=== PATIENT | female | born 1940 | race Caucasian/White ===

== ENCOUNTER 2016-12-18 07:35 | Emergency (ER) | payer OTHER ==
[~2016-12-18] VITALS: Ht 157.5 cm; Wt 78.6 kg
[~2016-12-18 07:35] MED LIST: ACET-1487 PO; ALBU18002 INH; AMT25 PO; ASPI81TA28 PO; ATEN-173 PO; ATOR-26 PO; BIMA0.01 OP; CRDCD180 PO; DTR5 PO; FERRTAB18 PO; FLNIN NAE; GABA-112 PO; GLC500 PO; GLIP1TAB85 PO; HYDR-3419 PO; MOME100A INH; NTRGSL/4 UT; OMEP20TA PO; OXGN; SYN25 PO; TRAM-10 PO
[2016-12-18 07:41] VITALS: TEMP 36.9; Ht 157.5 cm; Wt 78.6 kg
[2016-12-18] MEDS ORDERED: ONDANSETRON INJ 2 MG/ML 2 ML VIAL IV PRN (08:00)
[2016-12-18] MEDS ORDERED: MoRPHine SULFATE 10 MG/ML CARP/VIAL IV PRN (08:00)
--- NOTE | 2016-12-18 08:12 | EMERGENCY ROOM VISIT NOTE ---
History Report prepared by Michaela: Christin Fitzgerald Under the Supervision of: Dr. Taqueria Bey M.D. First contact with patient: 07:48 Chief Complaint: ABDOMINAL PAIN Stated Complaint: ABD PAIN History of Present Illness The patient is a 76 year old female who presents to the Emergency Room with complaints of constant abdominal pain starting two days ago. She states that she ate a pear while taking her normal evening medicine and became bloated soon after. She reports that by the next morning the pain had become much worse in her uppers stomach. She states that she has not been passing gas, but is burping before vomiting. The patient states that the first time she vomited it was a dark liquid color. She reports that in later episodes of vomiting, it was a light cocoa color. The patient complains of irregular bowel movements, right back pain, vomiting, and a fever. She denies any chills, hematochezia, and melena. The patient does have a history of a bowel obstruction occurring four years ago. She takes a baby Aspirin, but is not on any other blood thinners. Source of History: patient Onset: two days ago Position: abdomen Timing: constant Associated Symptoms: + back pain, + fevers, + vomiting, No chills, No hematochezia, No melena Note: The patient complains of irregular bowel movements and burping before vomiting. The patient denies passing gas. Review of Systems All systems have been listed, reviewed, and are negative other than those previously mentioned. Please see Additional Medical History Sheet. Past Medical & Surgical Medical Problems: (1) Cardiomegaly (2) Carotid stenosis (3) Diabetes (4) Hypertension (5) Sacral back pain Family History Diabetes mellitus FH: heart disease Social History Smoking Status: Never Smoker Drug Use: none Marital Status: Housing Status: lives with family Current/Historical Medications Scheduled Acetaminophen (Tylenol Arthritis Ext Rel), 2 TAB PO Q8H Albuterol Sulfate (Proair Respiclick), 2 PUFFS INH QD Amitriptyline HCl (Amitriptyline HCl), 50 MG PO HS Aspirin (Aspirin Ec), 81 MG PO QPM Atenolol (Tenormin), 25 MG PO QPM Atorvastatin (Lipitor), 80 MG PO QPM Bimatoprost (Lumigan), 1 DROPS OP HS Cyanocobalamin (Vitamin B12), 1,000 MCG PO QAM Diltiazem Hcl Coated Beads (Cartia Xt), 180 MG PO QPM Fluticasone Propionate (Fluticasone Propionate), 2 SPRAYS JAQUELIN QAM Gabapentin (Gabapentin), 300 MG PO TID Glipizide (Glipizide), 5 MG PO BID Iron-Vitamin C (Vitron-C), 1 TAB PO QAM Levothyroxine Sodium (Synthroid), 25 MCG PO QAM Metformin Hcl (Glucophage), 1,000 MG PO BID Nitroglycerin (Nitrostat), 0.4 MG UT PRN Omeprazole (Omeprazole), 20 MG PO BIDM Oxybutynin Chloride (Oxybutynin Chloride), 5 MG PO TID Oxygen (Oxygen), 2.5 LITERS NA HS Scheduled PRN Hydrocodon/Acetaminophen 5MG/300MG (Vicodin (5MG/300MG)), 1-2 TAB PO Q4H PRN for Pain Tramadol (Ultram), 50 MG PO Q6H PRN for Pain Allergies Coded Allergies: Carbamazepine (Verified Allergy, Unknown, RASH, 12/18/16) Oxaprozin (Verified Allergy, Unknown, RASH/HIVES, 12/18/16) Valproic Acid (Verified Allergy, Unknown, HEAD-TOE RASH, 12/18/16) Prednisone (Verified Adverse Reaction, Unknown, ELEVATION OF SUGARS, ) PATIENT HAS GLAUCOMA BOTH EYES - UNABLE TO TAKE PREDNISONE Physical Exam Vital Signs Date Time Temp Pulse Resp B/P Pulse Ox O2 Delivery O2 Flow Rate FiO2 12/18/16 12:22 92 18 127/71 94 12/18/16 11:37 92 18 127/71 94 Room Air 12/18/16 09:53 84 20 130/80 94 Room Air 12/18/16 07:41 36.9 107 20 144/71 93 Room Air Physical Exam GENERAL: Patient awake, alert, oriented x 3. Patient follows commands. Patient does not appear toxic. Patient is adequately hydrated and well- nourished. Patient appears to be in moderate distress. SKIN: No erythema, cyanosis or rash. Patient appears pale in color. HEENT: Normal head, pupils equal, reactive to light and accommodation. Mucous membranes are dry, tongue is slightly black in color. Neck: Without adenopathy , no neck vein distention. LUNGS: Clear to auscultation. No wheezes, no rales, no rhonchi. HEART: No murmurs. No gallops. No rubs ABDOMEN: No masses, no rebound, no hepatomegaly or splenomegaly. Diffuse tenderness, well healed lower abdominal scar. EXTREMITIES: No signs of trauma. No pedal or pretibial edema. No calf or thigh tenderness. NEUROLOGIC: Cranial nerves II-XII within normal limits. No gross motor sensory function deficits. Medical Decision & Procedures ER Provider Diagnostic Interpretation: Radiology results as stated below per my review and radiologist interpretation: ABDOMINAL ULTRASOUND, RIGHT UPPER QUADRANT HISTORY: Right upper quadrant abdominal pain. COMPARISON: None. FINDINGS: Pancreas: Small portion of the head is identified and appears unremarkable. The body and tail the pancreas are obscured by overlying bowel gas. Liver: The liver is echogenic consistent with fatty change. Gallbladder: No gallbladder wall thickening. No gallstones. CBD: 4 mm. Right kidney: No hydronephrosis. IMPRESSION: Hepatic steatosis. Normal gallbladder. No gallstones. Electronically signed by: Axel Patel M.D. 12/18/2016 9:42 AM Dictated Date/Time: 12/18/2016 9:42 AM Laboratory Results 12/18/16 08:55 Red Blood Count 4.19, Mean Corpuscular Volume 88.3, Mean Corpuscular Hemoglobin 29.1, Mean Corpuscular Hemoglobin Concent 33.0, Mean Platelet Volume 9.0, Neutrophils (%) (Auto) 72.4, Lymphocytes (%) (Auto) 15.8, Monocytes (%) (Auto) 11.6, Eosinophils (%) (Auto) 0.1, Basophils (%) (Auto) 0.1, Neutrophils # (Auto ) 6.27, Lymphocytes # (Auto) 1.37, Monocytes # (Auto) 1.01, Eosinophils # (Auto ) 0.01, Basophils # (Auto) 0.01 12/18/16 08:20 Test 12/18/16 08:20 12/18/16 08:55 12/18/16 10:30 Anion Gap 11.0 mmol/L (3-11) Est Creatinine Clear Calc Drug Dose 58.8 ml/min Estimated GFR () 84.3 Estimated GFR (Non- 72.7 BUN/Creatinine Ratio 22.8 (10-20) Calcium Level 9.8 mg/dl (8.5-10.1) Total Bilirubin 0.6 mg/dl (0.2-1) Aspartate Amino Transf (AST/SGOT) 20 U/L (15-37) Alanine Aminotransferase (ALT/SGPT) 27 U/L (12-78) Alkaline Phosphatase 63 U/L (45-117) Total Protein 7.4 gm/dl (6.4-8.2) Albumin 4.0 gm/dl (3.4-5.0) Globulin 3.4 gm/dl (2.5-4.0) Albumin/Globulin Ratio 1.2 (0.9-2) Lipase 55 U/L (73-393) White Blood Count 8.67 K/uL (4.8-10.8) Red Blood Count 4.19 M/uL (4.2-5.4) Hemoglobin 12.2 g/dL (12.0-16.0) Hematocrit 37.0 % (37-47) Mean Corpuscular Volume 88.3 fL (80-100) Mean Corpuscular Hemoglobin 29.1 pg (25-34) Mean Corpuscular Hemoglobin Concent 33.0 g/dl (32-36) Platelet Count 277 K/uL (130-400) Mean Platelet Volume 9.0 fL (7.4-10.4) Neutrophils (%) (Auto) 72.4 % Lymphocytes (%) (Auto) 15.8 % Monocytes (%) (Auto) 11.6 % Eosinophils (%) (Auto) 0.1 % Basophils (%) (Auto) 0.1 % Neutrophils # (Auto) 6.27 K/uL (1.4-6.5) Lymphocytes # (Auto) 1.37 K/uL (1.2-3.4) Monocytes # (Auto) 1.01 K/uL (0.11-0.59) Eosinophils # (Auto) 0.01 K/uL (0-0.5) Basophils # (Auto) 0.01 K/uL (0-0.2) RDW Standard Deviation 46.5 fL (36.4-46.3) RDW Coefficient of Variation 14.3 % (11.5-14.5) Immature Granulocyte % (Auto) 0.0 % Immature Granulocyte # (Auto) 0.00 K/uL (0.00-0.02) Urine Color DK YELLOW Urine Appearance CLEAR (CLEAR) Urine pH 5.5 (4.5-7.5) Urine Specific [place] 1.034 (1.000-1.030) Urine Protein 2+ (NEG) Urine Glucose (UA) NEG (NEG) Urine Ketones 2+ (NEG) Urine Occult Blood 1+ (NEG) Urine Nitrite POS (NEG) Urine Bilirubin NEG (NEG) Urine Urobilinogen NEG (NEG) Urine Leukocyte Esterase NEG (NEG) Urine WBC (Auto) 1-5 /hpf (0-5) Urine RBC (Auto) 0-4 /hpf (0-4) Urine Hyaline Casts (Auto) 1-5 /lpf (0-5) Urine Epithelial Cells (Auto) >30 /lpf (0-5) Urine Bacteria (Auto) 4+ (NEG) Urine Pathogenic Casts /lpf (0) Laboratory results as stated above per my review. Medications Administered Medications (Trade) Dose Ordered Sig/Vivek Route Start Time Stop Time Status Last Admin Dose Admin Ondansetron HCl (Zofran Inj) 4 mg Q1HWA PRN IV 12/18/16 08:00 12/18/16 12:35 DC 12/18/16 08:16 4 MG Morphine Sulfate (MoRPHine SULFATE INJ) 4 mg STK-MED ONCE .ROUTE 12/18/16 08:18 12/18/16 08:19 DC 12/18/16 08:15 4 MG Morphine Sulfate (MoRPHine SULFATE INJ) 2 mg STK-MED ONCE .ROUTE 12/18/16 08:19 12/18/16 08:20 DC 12/18/16 08:16 2 MG Polyethylene (Miralax Powder Packet) 17 gm ONE ONCE PO 12/18/16 10:00 12/18/16 10:01 DC 12/18/16 10:25 17 GM ECG Indication: abdominal pain Rate (beats per minute): 100 Rhythm: normal sinus Findings: RBBB, no acute ischemic change, no ectopy ED Course 0748: Past medical records reviewed. The patient was evaluated in room B2. A complete history and physical examination was performed. 0800: Ordered Zofran Inj 4 mg PRN IV nausea, Morphine Sulfate 6 mg PRN IV pain. 1000: Ordered Miralax Powder Packet 17 gm PO. 1018: I reevaluated the patient and informed her of the exam findings. She is feeling better. 1213: Upon reevaluation, the patient appeared to have improvement of her symptoms. I discussed today's findings with the patient. She verbalized agreement of the treatment plan. The patient was discharged home. Medical Decision Dyspnea Differential Diagnoses include pancreatitis, cholelithiasis, cholecystitis, peptic/ gastric ulcer disease, bowel obstruction Multiple labs come imaging and urinalysis were obtained. Please see above. The patient had significant relief with the above pain medications. The patient appears to be constipated. She was given MiraLAX. Ultrasound does not reveal a gallbladder problem. The patient does have 4+ bacteria in her urine but without symptoms and without significant white cells in her urine. We await culture prior to treatment with antibiotics. The patient does not appear to have a bowel obstruction or an acute abdomen. In the meantime I am hopeful that when she has regular bowel movements she will feel significantly better. Impression Primary Impression: Constipation Scribe Attestation The scribe's documentation has been prepared under my direction and personally reviewed by me in its entirety. I confirm that the note above accurately reflects all work, treatment, procedures, and medical decision making performed by me. Departure Information Dispostion Home / Self-Care Referrals Ben Brandon D.O. (PCP) Forms HOME CARE DOCUMENTATION FORM, IMPORTANT VISIT INFORMATION Patient Instructions [facility] Additional Instructions Repeat another dose of MiraLAX in 24 hours if you have not yet had a bowel movement. Continue all of your current medications as prescribed. A urine culture is pending. We will call you if you need antibiotics.
[2016-12-18] MEDS ORDERED: MoRPHine SULFATE 4 MG/ML 1 ML CARP\\VIAL ONE (08:18)
[2016-12-18] MEDS ORDERED: MoRPHine SULFATE 2 MG/ML CARP ONE (08:19)
[2016-12-18] MEDS ORDERED: FLNIN/ NAE (08:23)
[2016-12-18] MEDS ORDERED: DILT180C50 PO (08:23)
[2016-12-18] MEDS ORDERED: GLC5 PO (08:23)
[2016-12-18] MEDS ORDERED: AMT25 PO (08:23)
[2016-12-18] MEDS ORDERED: CYAN100020 PO (08:23)
[2016-12-18] MEDS ORDERED: GABA1CAP4 PO (08:23)
[2016-12-18] MEDS ORDERED: DTR5 PO (08:23)
[2016-12-18] MEDS ORDERED: METF-384 PO (08:23)
[2016-12-18 08:51] LABS: BUN/CREATININE RATIO 22.8 (10-20); CREATININE 0.79 mg/dl (0.60-1.20)
[2016-12-18 08:54] LABS: ALB/GLOB RATIO 1.2 (0.9-2); CALCIUM 9.8 mg/dl (8.5-10.1)
[2016-12-18 09:13] LABS: BASO % 0.1 %; BASO ABS # 0.01 K/uL (0-0.2); COMPLETE YES; EOS % 0.1 %; LYMPH % 15.8 %; LYMPH ABS # 1.37 K/uL (1.2-3.4); MEAN CELL VOLUME 88.3 fL (80-100); MEAN CORPUSCULAR HEMOGLOBIN 29.1 pg (25-34); MONO % 11.6 %; NEUT % 72.4 %; PLATELET COUNT 277 K/uL (130-400); RED BLOOD COUNT 4.19 M/uL (4.2-5.4); WHITE BLOOD COUNT 8.67 K/uL (4.8-10.8)
--- NOTE | 2016-12-18 09:44 | DIAGNOSTIC IMAGING REPORT ---
ABDOMINAL ULTRASOUND, RIGHT UPPER QUADRANT HISTORY: Right upper quadrant abdominal pain. COMPARISON: None. FINDINGS: Pancreas: Small portion of the head is identified and appears unremarkable. The body and tail the pancreas are obscured by overlying bowel gas. Liver: The liver is echogenic consistent with fatty change. Gallbladder: No gallbladder wall thickening. No gallstones. CBD: 4 mm. Right kidney: No hydronephrosis. IMPRESSION: Hepatic steatosis. Normal gallbladder. No gallstones. Electronically signed by: Axel Patel M.D. 12/18/2016 9:42 AM Dictated Date/Time: 12/18/2016 9:42 AM
[2016-12-18] MEDS ORDERED: POLYETHYLENE (MIRALAX) 17 GM PACK PO ONE (10:00)
[2016-12-18 10:51] LABS: URINE APPEARANCE CLEAR (CLEAR); URINE BILIRUBIN NEG (NEG); URINE COLOR DK YELLOW; URINE EPITHELIAL CELL AUTO >30 /lpf (0-5); URINE NITRITE POS (NEG); URINE PH 5.5 (4.5-7.5); URINE SPECIFIC GRAVITY 1.034 (1.000-1.030); UROBILINOGEN NEG (NEG); ZZURINE CULT IF INDIC CATH YES
[2016-12-18 10:53] LABS: MANUAL MICROSCOPIC REQUIRED? NO; REVIEW REQ? YES
[2016-12-18 12:22] VITALS: BP 127/71; PULSE 92; O2SAT 94
[2016-12-19] MEDS ORDERED: MOME100A INH (08:34)
[2016-12-19] MEDS ORDERED: DOCU-94 PO (08:34)
--- NOTE | 2016-12-20 17:09 | Pharmacy Progress Note ---
ED Pharmacist Culture FollowUp Date of Service: Dec 20, 2016. E. coli isolated from urine culture. Patient was admitted to [facility] since this was taken. Spoke w her attending physician (Dr. King) who is aware of the culture result. Management per primary team - no further intervention required by ED.
[2016-12-26] MEDS ORDERED: DOXY100C41 PO (12:57)
[2016-12-26] MEDS ORDERED: LCTX PO (12:57)
[2016-12-26] MEDS ORDERED: LEVO-459 PO (12:57)
[2016-12-26] MEDS ORDERED: PRED10TA PO (12:57)
[2017-04-20] MEDS ORDERED: CYAN100T PO (07:42)
[2017-06-27] MEDS ORDERED: ISOS60TA25 PO (13:30)
[2017-06-27] MEDS ORDERED: ACET-1256 PO (13:30)
[2017-06-27] MEDS ORDERED: DIPH1TAB87 (13:30)
[2017-06-27] MEDS ORDERED: BIMA0.01 OP (13:30)
[2017-06-27] MEDS ORDERED: ATOR-26 PO (13:30)
[2017-06-27] MEDS ORDERED: TRAM-10 PO (13:30)
== END 2016-12-18 12:23 | disposition home or self-care (01) ==
LOC: C.EDB 07:36
DX: K59.00 Constipation, unspecified (principal); E11.9 Type 2 diabetes mellitus without complications; I10 Essential (primary) hypertension; Z83.3 Family history of diabetes mellitus; Z79.82 Long term (current) use of aspirin; Z79.84 Long term (current) use of oral hypoglycemic drugs

== ENCOUNTER 2016-12-19 04:32 | Inpatient (IN) | payer OTHER ==
[~2016-12-19] VITALS: Ht 157.5 cm; Wt 77.3 kg
[~2016-12-19 04:32] MED LIST changes: -CRDCD180 PO; +CYAN100020 PO; +DILT180C50 PO; -FLNIN NAE; +FLNIN/ NAE; -GABA-112 PO; +GABA1CAP4 PO; +GLC5 PO; -GLC500 PO; -GLIP1TAB85 PO; +METF-384 PO; -MOME100A INH
[2016-12-19] MEDS ORDERED: MoRPHine SULFATE 4 MG/ML 1 ML CARP\\VIAL IV STA (04:54)
[2016-12-19] MEDS ORDERED: ONDANSETRON INJ 2 MG/ML 2 ML VIAL IV STA (04:54)
[2016-12-19] MEDS ORDERED: SODIUM CHLORIDE 0.9% 1000ML 1,000 ML IV STA (04:56)
[2016-12-19] MEDS ORDERED: SODIUM CHLORIDE 0.9% 500ML 500 ML IV STA (04:56)
--- NOTE | 2016-12-19 04:58 | EMERGENCY ROOM VISIT NOTE ---
History Report prepared by Michaela: Obed Lazcano Under the Supervision of: Dr. Elizabeth Cherry D.O. First contact with patient: 04:40 Chief Complaint: GI ASSESSMENT Stated Complaint: BOWELS NOT WORKING,NOTHING GOING THROUGH,VOMITING Nursing Triage Summary: pt states her bowels are not working, "nothing going through, everything is coming up" c/o abd pain History of Present Illness The patient is a 76 year old female who presents to the Emergency Room with complaints of persistent abdominal pain that started yesterday. The patient complains of difficulty moving her bowels, nausea, and vomiting. The patient recently presented to the ED about 20 hours ago for similar symptoms. She was treated with MiraLAX. However, the patient notes that this didn't help relieve her symptoms once she got home. The patient has a history of blockages and had surgery to repair the small bowel obstruction. Source of History: patient Onset: yesterday Position: abdomen Timing: other (persistent) Associated Symptoms: + nausea, + vomiting Note: Other associated symptoms: difficulty moving her bowels Review of Systems See HPI for pertinent positives & negatives. A total of 10 systems reviewed and were otherwise negative. Past Medical & Surgical Medical Problems: (1) Cardiomegaly (2) Carotid stenosis (3) Diabetes (4) Hypertension (5) Sacral back pain Family History Diabetes mellitus FH: heart disease Social History Smoking Status: Never Smoker Drug Use: none Marital Status: Housing Status: lives with family Current/Historical Medications Scheduled Amitriptyline HCl (Amitriptyline HCl), 50 MG PO HS Aspirin (Aspirin Ec), 81 MG PO QPM Atenolol (Tenormin), 25 MG PO QPM Atorvastatin (Lipitor), 80 MG PO QPM Bimatoprost (Lumigan), 1 DROPS OP HS Cyanocobalamin (Vitamin B12), 1,000 MCG PO QAM Diltiazem Hcl Coated Beads (Cartia Xt), 180 MG PO QPM Docusate Sodium (Colace), 2 CAP PO DAILY Fluticasone Propionate (Fluticasone Propionate), 2 SPRAYS JAQUELIN QAM Gabapentin (Gabapentin), 300 MG PO UD Glipizide (Glipizide), 5 MG PO BID Levothyroxine Sodium (Synthroid), 25 MCG PO QAM Metformin Hcl (Glucophage), 1,000 MG PO BID Mometasone Furoate-Formoterol (Dulera 100/5 Mcg), 1 PUFFS INH BID Nitroglycerin (Nitrostat), 0.4 MG UT PRN Omeprazole (Omeprazole), 20 MG PO BIDM Oxybutynin Chloride (Oxybutynin Chloride), 5 MG PO TID Scheduled PRN Albuterol Sulfate (Proair Respiclick), 2 PUFFS INH Q4 PRN for SOB/Wheezing Tramadol (Ultram), 50 MG PO Q6H PRN for Pain Allergies Coded Allergies: Carbamazepine (Verified Allergy, Unknown, RASH, 12/18/16) Oxaprozin (Verified Allergy, Unknown, RASH/HIVES, 12/18/16) Valproic Acid (Verified Allergy, Unknown, HEAD-TOE RASH, 12/18/16) Prednisone (Verified Adverse Reaction, Unknown, ELEVATION OF SUGARS, ) PATIENT HAS GLAUCOMA BOTH EYES - UNABLE TO TAKE PREDNISONE Physical Exam Vital Signs Date Time Temp Pulse Resp B/P Pulse Ox O2 Delivery O2 Flow Rate FiO2 12/19/16 08:04 94 Room Air 12/19/16 07:52 115 20 167/95 94 12/19/16 06:00 99 22 155/83 95 Room Air 12/19/16 04:37 36.8 114 22 135/72 95 Room Air Physical Exam HEENT: Head - normocephalic and atraumatic Pupils are equal, round, and reactive to light. Extraocular eye muscles are intact, and sclera are anicteric. Nose - moist nasal mucosa without discharge. Mouth - moist buccal mucosa. Oropharynx is nonerythematous and there is no tonsillar exudate or edema noted. Tongue is black. Neck: Supple; no JVD, nuchal rigidity, cervical lymphadenopathy. Heart: Tachycardic. There is a normal S1 and S2 with no murmurs, clicks, or gallops appreciated. Lungs: Clear to auscultation bilaterally with no wheezes, rales, or rhonchi. Abdomen: Distended, diffusely tender with light palpation, with no bowel sounds present. There are no palpable pulsatile masses or hepatosplenomegaly. Extremities: No evidence of cyanosis, clubbing, or edema. There are easily palpable peripheral pulses. Skin: color is pale, warm and dry with good turgor and no rashes. Medical Decision & Procedures ER Provider Diagnostic Interpretation: Radiology results as stated below per my review and the radiologist's interpretation: Obstruction series: Spinal hardware present. No obvious signs of obstruction. CT Abdomen & Pelvis: Comparison: CT abdomen and pelvis 07/12/14 Findings suspicious for bowel obstruction with moderately dilated loops of small bowel proximal to a transition point in the right lower quadrant. Distal small bowel is decompressed. No free air or pneumatosis. Colonic diverticulosis without evidence of diverticulitis. No acute findings in the liver, gallbladder , pancreas, spleen, adrenals, ir kidneys. Patchy groundglaas opacities in the right middle lobe. Correlate for pneumonia. Laboratory Results 12/19/16 04:55 Red Blood Count 4.29, Mean Corpuscular Volume 88.6, Mean Corpuscular Hemoglobin 28.4, Mean Corpuscular Hemoglobin Concent 32.1, Mean Platelet Volume 9.0, Neutrophils (%) (Auto) 68.3, Lymphocytes (%) (Auto) 19.5, Monocytes (%) (Auto) 12.0, Eosinophils (%) (Auto) 0.0, Basophils (%) (Auto) 0.2, Neutrophils # (Auto ) 3.36, Lymphocytes # (Auto) 0.96, Monocytes # (Auto) 0.59, Eosinophils # (Auto ) 0.00, Basophils # (Auto) 0.01 12/19/16 04:55 Test 12/19/16 04:55 12/19/16 05:01 White Blood Count 4.92 K/uL (4.8-10.8) Red Blood Count 4.29 M/uL (4.2-5.4) Hemoglobin 12.2 g/dL (12.0-16.0) Hematocrit 38.0 % (37-47) Mean Corpuscular Volume 88.6 fL (80-100) Mean Corpuscular Hemoglobin 28.4 pg (25-34) Mean Corpuscular Hemoglobin Concent 32.1 g/dl (32-36) Platelet Count 269 K/uL (130-400) Mean Platelet Volume 9.0 fL (7.4-10.4) Neutrophils (%) (Auto) 68.3 % Lymphocytes (%) (Auto) 19.5 % Monocytes (%) (Auto) 12.0 % Eosinophils (%) (Auto) 0.0 % Basophils (%) (Auto) 0.2 % Neutrophils # (Auto) 3.36 K/uL (1.4-6.5) Lymphocytes # (Auto) 0.96 K/uL (1.2-3.4) Monocytes # (Auto) 0.59 K/uL (0.11-0.59) Eosinophils # (Auto) 0.00 K/uL (0-0.5) Basophils # (Auto) 0.01 K/uL (0-0.2) RDW Standard Deviation 47.0 fL (36.4-46.3) RDW Coefficient of Variation 14.4 % (11.5-14.5) Immature Granulocyte % (Auto) 0.0 % Immature Granulocyte # (Auto) 0.00 K/uL (0.00-0.02) Anion Gap 7.0 mmol/L (3-11) Est Creatinine Clear Calc Drug Dose 38.4 ml/min Estimated GFR () 50.8 Estimated GFR (Non- 43.9 BUN/Creatinine Ratio 21.3 (10-20) Calcium Level 9.4 mg/dl (8.5-10.1) Total Bilirubin 0.8 mg/dl (0.2-1) Aspartate Amino Transf (AST/SGOT) 14 U/L (15-37) Alanine Aminotransferase (ALT/SGPT) 27 U/L (12-78) Alkaline Phosphatase 64 U/L (45-117) Total Protein 8.0 gm/dl (6.4-8.2) Albumin 4.2 gm/dl (3.4-5.0) Globulin 3.8 gm/dl (2.5-4.0) Albumin/Globulin Ratio 1.1 (0.9-2) Procalcitonin 0.10 ng/ml (0-0.5) Bedside Lactic Acid Venous 1.36 mmol/L (0.90-1.70) Laboratory results per my review. Medications Administered Medications (Trade) Dose Ordered Sig/Vivek Route Start Time Stop Time Status Last Admin Dose Admin Morphine Sulfate (MoRPHine SULFATE INJ) 4 mg NOW STAT IV 12/19/16 04:54 12/19/16 04:56 DC 12/19/16 05:04 4 MG Ondansetron HCl 4 mg 4 mg NOW STAT IV 12/19/16 04:54 12/19/16 04:56 DC 12/19/16 05:04 4 MG Sodium Chloride 500 ml @ 999 mls/hr Q31M STAT IV 12/19/16 04:56 12/19/16 05:26 DC 12/19/16 04:56 999 MLS/HR Sodium Chloride (Nss 1000ml) 1,000 ml @ 250 mls/hr Q4H STAT IV 12/19/16 04:56 12/19/16 08:55 DC 12/19/16 04:56 250 MLS/HR Morphine Sulfate (MoRPHine SULFATE INJ) 4 mg STK-MED ONCE .ROUTE 12/19/16 08:06 12/19/16 08:07 DC 12/19/16 08:03 4 MG Procedure Zofran Inj IV Morphine Sulfate IV NSS IV bolus NSS IV drip ED Course 0441: Past medical records reviewed. The patient was evaluated in room B3. A complete history and physical exam was performed. An IV lock was initiated and labs were drawn as above. 0454: Ordered Zofran Inj 4 mg IV, Morphine Sulfate 4 mg IV. 0456: Ordered NSS 1000 ml @ 250 mls/hr IV, NSS 500 ml @ 999 mls/hr IV. The patient had an obstruction series as described above. 0526: At this time, I reevaluated the patient and she said that she only feels a little bit better. I ordered a CT scan for the patient. 0614: At this time, I reevaluated the patient and she was still having some nausea. She did not want any more medications at this time. 0645: At this time, I discussed the patient's case with Dr. Becker - Jerilyn Bañuelos and he agreed to accept the patient for further evaluation. 0647: The patient will have a NG tube placed at this time. 0651: At this time, I discussed the patient's case with Dr. Bradford Dubois [facility] and he agreed to evaluate the patient in the ED. Medical Decision The patient is a 76 year old female who presents to the ED with abdominal pain. Differential diagnosis includes small bowel obstruction, gastritis, constipation , or closed loop bowel obstruction. Labs interpreted by me: normal white count, stable H&H, creatinine 1.2, BUN 26, lactic acid 1.3, glucose 199, and LFTs are unremarkable. This is a 76 year old female patient with a history of small bowel obstruction requiring surgery who presents to the emergency department with abdominal distention, nausea and vomiting. The patient was seen here yesterday and received IV pain medication and antiemetics. She was feeling better at the time of discharge but then upon arriving home, the nausea returned and she started to vomit again. CT scan of the abdomen/pelvis today shows evidence of small bowel obstruction with a transition point in the right lower quadrant of the abdomen. An NG tube was placed. I discussed the case with Dr. Leal for medicine as well as Dr. Fitzgerald from surgery. They will evaluate the patient for further care. Consults Time Called: 0643 Consulting Physician: Dr. Becker - Jerilyn Bañuelos Returned Call: [phone] At this time, I discussed the patient's case with Dr. Becker and he agreed to accept the patient for further evaluation. Additional Consults: Time Called: 0646 Consulted Physician: Dr. Felder - [facility] Thao Bañuelos Returned Call: [phone] Additional Comments: At this time, I discussed the patient's case with Dr. Bradford Dubois [facility] Thao Bañuelos and he agreed to evaluate the patient in the ED. Impression Primary Impression: Small bowel obstruction Scribe Attestation The scribe's documentation has been prepared under my direction and personally reviewed by me in its entirety. I confirm that the note above accurately reflects all work, treatment, procedures, and medical decision making performed by me. Departure Information Dispostion Being Evaluated By Ben Ruby D.O. (PCP)
[2016-12-19 05:10] LABS: BASO % 0.2 %; BASO ABS # 0.01 K/uL (0-0.2); COMPLETE YES; LYMPH % 19.5 %; LYMPH ABS # 0.96 K/uL (1.2-3.4); MEAN CELL VOLUME 88.6 fL (80-100); MEAN CORPUSCULAR HEMOGLOBIN 28.4 pg (25-34); MEAN CORPUSCULAR HGB CONC 32.1 g/dl (32-36); NEUT % 68.3 %; PLATELET COUNT 269 K/uL (130-400); RED BLOOD COUNT 4.29 M/uL (4.2-5.4); WHITE BLOOD COUNT 4.92 K/uL (4.8-10.8)
[2016-12-19] MEDS ORDERED: OPTIRAY 320 IV PRN (05:30)
[2016-12-19 05:41] LABS: BUN/CREATININE RATIO 21.3 (10-20); CALCIUM 9.4 mg/dl (8.5-10.1); CREATININE 1.2 mg/dl (0.60-1.20); POTASSIUM 4.3 mmol/L (3.5-5.1)
[2016-12-19 05:44] LABS: ALB/GLOB RATIO 1.1 (0.9-2)
--- NOTE | 2016-12-19 06:52 | DIAGNOSTIC IMAGING REPORT ---
ABDOMEN 2VIEW W/PA CHEST RTN CLINICAL HISTORY: Pain, radiating to the abdomen. COMPARISON STUDY: 07/20/2014 FINDINGS: The right-sided PICC catheter has been removed. The heart is enlarged. There is no failure. There is no focal pulmonary consolidation. There are linear opacities the left lung base, likely atelectatic. No free air is visualized. IMPRESSION: Mild cardiomegaly and left basilar atelectasis. No evidence of free intraperitoneal air. Electronically signed by: Daniel Bautista M.D. 12/19/2016 6:49 AM Dictated Date/Time: 12/19/2016 6:49 AM
--- NOTE | 2016-12-19 07:28 | DIAGNOSTIC IMAGING REPORT ---
CT OF THE ABDOMEN AND PELVIS WITH CONTRAST CLINICAL HISTORY: Vomiting. Evaluate for small bowel obstruction. COMPARISON STUDY: CT of the abdomen and pelvis July 12, 2014 and abdominal series performed earlier today. TECHNIQUE: Following IV administration of 100 mL of Optiray-320, axial images of the abdomen and pelvis were obtained from the lung bases to the proximal femurs. Images were reviewed in the axial, sagittal, and coronal planes. IV contrast was administered without complication. CT DOSE: 677.65 mGy.cm FINDINGS: Visualized portions of the lower chest demonstrate right middle lobe airspace opacity. There is no pneumatosis, free air or portal venous gas. There is suspected fatty infiltration of the liver. The spleen, adrenal glands, kidneys and pancreas are unremarkable. The proximal to mid small bowel is fluid-filled and moderately dilated with a transition point within the right anterior abdomen shown on image 255 of 456. The distal small bowel is decompressed. There is left colon diverticulosis without evidence for acute diverticulitis. A left hip arthroplasty and multi level postsurgical findings within the spine are noted with a left sacroiliac joint fusion. There are no suspicious osseous lesions. IMPRESSION: 1. Moderate grade small bowel obstruction with transition point within the right anterior abdomen. Minimal mesenteric infiltration and fluid. No free air, pneumatosis or portal venous gas. 2. Right middle lobe airspace opacity which is suggestive of pneumonia. Electronically signed by: Jordy Domingo M.D. 12/19/2016 7:25 AM Dictated Date/Time: 12/19/2016 6:57 AM
[2016-12-19] MEDS ORDERED: MoRPHine SULFATE 4 MG/ML 1 ML CARP\\VIAL IM PRN (08:00)
--- NOTE | 2016-12-19 08:00 | History and Physical ---
History & Physical Date & Time of Service: Dec 19, 2016 at 07:51 Chief Complaint: Bowels Not Working,Nothing Going Through,Vomiting Primary Care Physician: Ben Brandon D.O. History of Present Illness Source: patient, spouse The patient is a 76 year old female who presents to the Emergency Room with complaints of persistent abdominal pain that started yesterday. The patient complains of difficulty moving her bowels, nausea, and vomiting. The patient recently presented to the ED about 20 hours ago for similar symptoms. She was treated with MiraLAX. However, the patient notes that this didn't help relieve her symptoms once she got home. The patient has a history of blockages and had surgery to repair the small bowel obstruction. I exam pt and reviewed CT scan, and put NG tube in, last SBO surgery in 2013. last BM 3 days ago, now pt said she feels better, Past Medical/Surgical History Medical Problems: (1) Cardiomegaly Status: Chronic (2) Hypertension Status: Chronic Family History Diabetes mellitus FH: heart disease Social History Smoking Status: Never Smoker Smokeless Tobacco Use: No Alcohol Use: none Drug Use: none Marital Status: Immunizations History of Influenza Vaccine: Yes Influenza Vaccine Date: May 29, 2013 History of Tetanus Vaccine?: Yes Tetanus Immunization Date: Jun 20, 2010 History of Pneumococcal: Yes Pneumococcal Date: Jun 20, 2011 History of Hepatitis B Vaccine: No Multi-Drug Resistant Organisms History of MDRO: No Allergies Coded Allergies: Carbamazepine (Verified Allergy, Unknown, RASH, 12/18/16) Oxaprozin (Verified Allergy, Unknown, RASH/HIVES, 12/18/16) Valproic Acid (Verified Allergy, Unknown, HEAD-TOE RASH, 12/18/16) Prednisone (Verified Adverse Reaction, Unknown, ELEVATION OF SUGARS, ) PATIENT HAS GLAUCOMA BOTH EYES - UNABLE TO TAKE PREDNISONE Home Medications Scheduled Acetaminophen (Tylenol Arthritis Ext Rel), 2 TAB PO Q8H Albuterol Sulfate (Proair Respiclick), 2 PUFFS INH QD Amitriptyline HCl (Amitriptyline HCl), 50 MG PO HS Aspirin (Aspirin Ec), 81 MG PO QPM Atenolol (Tenormin), 25 MG PO QPM Atorvastatin (Lipitor), 80 MG PO QPM Bimatoprost (Lumigan), 1 DROPS OP HS Cyanocobalamin (Vitamin B12), 1,000 MCG PO QAM Diltiazem Hcl Coated Beads (Cartia Xt), 180 MG PO QPM Fluticasone Propionate (Fluticasone Propionate), 2 SPRAYS JAQUELIN QAM Gabapentin (Gabapentin), 300 MG PO TID Glipizide (Glipizide), 5 MG PO BID Iron-Vitamin C (Vitron-C), 1 TAB PO QAM Levothyroxine Sodium (Synthroid), 25 MCG PO QAM Metformin Hcl (Glucophage), 1,000 MG PO BID Nitroglycerin (Nitrostat), 0.4 MG UT PRN Omeprazole (Omeprazole), 20 MG PO BIDM Oxybutynin Chloride (Oxybutynin Chloride), 5 MG PO TID Oxygen (Oxygen), 2.5 LITERS NA HS Scheduled PRN Hydrocodon/Acetaminophen 5MG/300MG (Vicodin (5MG/300MG)), 1-2 TAB PO Q4H PRN for Pain Tramadol (Ultram), 50 MG PO Q6H PRN for Pain Review of Systems Constitutional: No chills, No fatigue, No fever, No problem reported, No sweats , No weakness, No weight loss Eyes: No diplopia, No discharge, No eye pain, No problem reported, No redness, No worsening of vision ENT: + hearing loss, No dental problems, No nasal symptoms, No problem reported , No sore throat, No tinnitus, No trouble swallowing, No unusual epistaxis Respiratory: No cough, No dyspnea at rest, No dyspnea on exertion, No hemoptysis, No problem reported, No shortness of breath, No sputum, No wheezing Cardiovascular: + problem reported (Cardiac stent) Abdomen: + nausea, + pain, + vomiting Neurologic: No balance problems, No memory loss, No numbness/tingling, No paralysis, No problem reported, No vertigo, No weakness Psychiatric: No anhedonism, No anxiety, No depression symptoms, No insomnia, No problem reported, No substance abuse Endocrine: + problem reported (DM), No excessive thirst, No excessive urination , No fatigue Integumentary: No bleeding, No color change, No itch, No new/changing skin lesions, No problem reported, No rash Physical Exam Vital Signs Date Time Temp Pulse Resp B/P Pulse Ox O2 Delivery O2 Flow Rate FiO2 12/19/16 06:00 99 22 155/83 95 Room Air 12/19/16 04:37 36.8 114 22 135/72 95 Room Air General Appearance: WD/WN, no apparent distress Head: normocephalic Eyes: normal inspection ENT: normal ENT inspection Neck: supple, no JVD Respiratory/Chest: chest non-tender, lungs clear Cardiovascular: regular rate, rhythm, no edema, no gallop, no JVD Abdomen/GI: normal bowel sounds, non tender, soft, no organomegaly Extremities/Musculoskelatal: normal inspection, no calf tenderness, normal capillary refill Neurologic/Psych: no motor/sensory deficits, alert, normal mood/affect Skin: normal color, warm/dry, no rash Diagnostics Laboratory Results Results Past 24 Hours Test 12/19/16 04:55 12/19/16 05:01 Range/Units White Blood Count 4.92 4.8-10.8 K/uL Red Blood Count 4.29 4.2-5.4 M/uL Hemoglobin 12.2 12.0-16.0 g/dL Hematocrit 38.0 37-47 % Mean Corpuscular Volume 88.6 80-100 fL Mean Corpuscular Hemoglobin 28.4 25-34 pg Mean Corpuscular Hemoglobin Concent 32.1 32-36 g/dl Platelet Count 269 130-400 K/uL Mean Platelet Volume 9.0 7.4-10.4 fL Neutrophils (%) (Auto) 68.3 % Lymphocytes (%) (Auto) 19.5 % Monocytes (%) (Auto) 12.0 % Eosinophils (%) (Auto) 0.0 % Basophils (%) (Auto) 0.2 % Neutrophils # (Auto) 3.36 1.4-6.5 K/uL Lymphocytes # (Auto) 0.96 1.2-3.4 K/uL Monocytes # (Auto) 0.59 0.11-0.59 K/uL Eosinophils # (Auto) 0.00 0-0.5 K/uL Basophils # (Auto) 0.01 0-0.2 K/uL RDW Standard Deviation 47.0 36.4-46.3 fL RDW Coefficient of Variation 14.4 11.5-14.5 % Immature Granulocyte % (Auto) 0.0 % Immature Granulocyte # (Auto) 0.00 0.00-0.02 K/uL Sodium Level 135 136-145 mmol/L Potassium Level 4.3 3.5-5.1 mmol/L Chloride Level 94 98-107 mmol/L Carbon Dioxide Level 34 21-32 mmol/L Anion Gap 7.0 3-11 mmol/L Blood Urea Nitrogen 26 7-18 mg/dl Creatinine 1.20 0.60-1.20 mg/dl Est Creatinine Clear Calc Drug Dose 38.4 ml/min Estimated GFR () 50.8 Estimated GFR (Non- 43.9 BUN/Creatinine Ratio 21.3 10-20 Random Glucose 199 70-99 mg/dl Calcium Level 9.4 8.5-10.1 mg/dl Total Bilirubin 0.8 0.2-1 mg/dl Aspartate Amino Transf (AST/SGOT) 14 15-37 U/L Alanine Aminotransferase (ALT/SGPT) 27 12-78 U/L Alkaline Phosphatase 64 45-117 U/L Total Protein 8.0 6.4-8.2 gm/dl Albumin 4.2 3.4-5.0 gm/dl Globulin 3.8 2.5-4.0 gm/dl Albumin/Globulin Ratio 1.1 0.9-2 Bedside Lactic Acid Venous 1.36 0.90-1.70 mmol/L Diagnostic Radiology CT OF THE ABDOMEN AND PELVIS WITH CONTRAST CLINICAL HISTORY: Vomiting. Evaluate for small bowel obstruction. COMPARISON STUDY: CT of the abdomen and pelvis July 12, 2014 and abdominal series performed earlier today. TECHNIQUE: Following IV administration of 100 mL of [id number]-320, axial images of the abdomen and pelvis were obtained from the lung bases to the proximal femurs. Images were reviewed in the axial, sagittal, and coronal planes. IV contrast was administered without complication. CT DOSE: 677.65 mGy.cm FINDINGS: Visualized portions of the lower chest demonstrate right middle lobe airspace opacity. There is no pneumatosis, free air or portal venous gas. There is suspected fatty infiltration of the liver. The spleen, adrenal glands, kidneys and pancreas are unremarkable. The proximal to mid small bowel is fluid-filled and moderately dilated with a transition point within the right anterior abdomen shown on image 255 of [id number]. The distal small bowel is decompressed. There is left colon diverticulosis without evidence for acute diverticulitis. A left hip arthroplasty and multi level postsurgical findings within the spine are noted with a left sacroiliac joint fusion. There are no suspicious osseous lesions. IMPRESSION: 1. Moderate grade small bowel obstruction with transition point within the right anterior abdomen. Minimal mesenteric infiltration and fluid. No free air, pneumatosis or portal venous gas. 2. Right middle lobe airspace opacity which is suggestive of pneumonia. Impression Assessment and Plan IMP: SBO, pneumonia I recommend that hositalist admit pt to hospital treat DM, pneumonia for SBO NPO, NG tube, IV antibiotic, fluid repeat labs in am, will F/U Thanks, D/W ER attending about treatment plan,
[2016-12-19 08:04] VITALS: O2SAT 94; Ht 157.5 cm; Wt 77.3 kg
[2016-12-19] MEDS ORDERED: MoRPHine SULFATE 4 MG/ML 1 ML CARP\\VIAL ONE (08:06)
--- NOTE | 2016-12-19 08:14 | EMERGENCY ROOM VISIT NOTE ---
ED Visit Note The patient was seen by Dr. Felder who requested that I consult the hospitalist for admission. I discussed care with Dr. Coronado at approximately 8 AM. The patient will be admitted under the medicine service.
[2016-12-19] MEDS ORDERED: DEXTROSE 50% 50 ML SYR IV PRN (08:30)
[2016-12-19] MEDS ORDERED: GLUCOSE 10 TABS/TUBE PO PRN (08:30)
[2016-12-19] MEDS ORDERED: GLUCOSE 40% GEL 15 GM TUBE PO PRN (08:30)
[2016-12-19] MEDS ORDERED: GLUCAGON FOR INJ 1 MG VIAL SQ PRN (08:30)
[2016-12-19] MEDS ORDERED: ONDANSETRON INJ 2 MG/ML 2 ML VIAL IV PRN (08:30)
[2016-12-19] MEDS ORDERED: ALBUTEROL HFA 8 GM INHALER INH PRN (08:30)
[2016-12-19] MEDS ORDERED: DOCU-94 PO (08:34)
[2016-12-19] MEDS ORDERED: MOME100A INH (08:34)
[2016-12-19] MEDS ORDERED: MOMETASONE FUROATE FORMOTEROL INH SCH (09:00)
[2016-12-19] MEDS ORDERED: NURSING VERBAL MED ORDER ONE (11:15)
[2016-12-19] MEDS: INSULIN ASPART 100 UNITS/ML 3 ML PEN SC SCH ×3 (12:00→23:29)
[2016-12-19] MEDS: SODIUM CHLORIDE 0.9% 1000ML 1,000 ML IV SCH ×2 (13:32→21:08)
[2016-12-19 15:34] VITALS: BP 131/76; PULSE 97; TEMP 36.6; O2SAT 93
--- NOTE | 2016-12-19 16:10 | History and Physical ---
History & Physical Date & Time of Service: Dec 19, 2016 at 15:57 Chief Complaint: Small Bowel Obstruction Primary Care Physician: Ben Brandon D.O. History of Present Illness Source: patient, spouse, clinic records, hospital records Patient is a 76 y/o female with a h/o HTN and SBO who presents for evaluation of abdominal pain and vomiting. Symptoms have been ongoing for the past couple of days and feel similar to previous SBO. Patient did not take any of her usual medications over the weekend as she did not feel that she would be able to keep them down. In the ED, vitals were stable. CT a/p showed SBO and RML airspace opacity. General surgery evaluated the patient and placed an NGT. Past Medical/Surgical History Medical Problems: (1) Cardiomegaly Status: Chronic (2) Hypertension Status: Chronic Family History Diabetes mellitus FH: heart disease Social History Smoking Status: Never Smoker Smokeless Tobacco Use: No Alcohol Use: none Drug Use: none Marital Status: Housing status: lives with family Immunizations History of Influenza Vaccine: Yes Influenza Vaccine Date: Jul 13, 2016 History of Tetanus Vaccine?: Yes Tetanus Immunization Date: Mar 22, 2016 History of Pneumococcal: Yes Pneumococcal Date: Sep 29, 2014 History of Hepatitis B Vaccine: No Multi-Drug Resistant Organisms History of MDRO: No Allergies Coded Allergies: Carbamazepine (Verified Allergy, Unknown, RASH, 12/18/16) Oxaprozin (Verified Allergy, Unknown, RASH/HIVES, 12/18/16) Valproic Acid (Verified Allergy, Unknown, HEAD-TOE RASH, 12/18/16) Prednisone (Verified Adverse Reaction, Unknown, ELEVATION OF SUGARS, ) PATIENT HAS GLAUCOMA BOTH EYES - UNABLE TO TAKE PREDNISONE Home Medications Scheduled Amitriptyline HCl (Amitriptyline HCl), 50 MG PO HS Aspirin (Aspirin Ec), 81 MG PO QPM Atenolol (Tenormin), 25 MG PO QPM Atorvastatin (Lipitor), 80 MG PO QPM Bimatoprost (Lumigan), 1 DROPS OP HS Cyanocobalamin (Vitamin B12), 1,000 MCG PO QAM Diltiazem Hcl Coated Beads (Cartia Xt), 180 MG PO QPM Docusate Sodium (Colace), 2 CAP PO DAILY Fluticasone Propionate (Fluticasone Propionate), 2 SPRAYS JAQUELIN QAM Gabapentin (Gabapentin), 300 MG PO UD Glipizide (Glipizide), 5 MG PO BID Levothyroxine Sodium (Synthroid), 25 MCG PO QAM Metformin Hcl (Glucophage), 1,000 MG PO BID Mometasone Furoate-Formoterol (Dulera 100/5 Mcg), 1 PUFFS INH BID Nitroglycerin (Nitrostat), 0.4 MG UT PRN Omeprazole (Omeprazole), 20 MG PO BIDM Oxybutynin Chloride (Oxybutynin Chloride), 5 MG PO TID Scheduled PRN Albuterol Sulfate (Proair Respiclick), 2 PUFFS INH Q4 PRN for SOB/Wheezing Tramadol (Ultram), 50 MG PO Q6H PRN for Pain Review of Systems Constitutional- temp yesterday at home of 100.6; denies chills Eyes- denies sudden changes in vision ENT- denies sore throat or congestion Pulmonary- denies SOB or cough Cardiac- denies chest pain or palpitations GI- +abdominal pain; +n/v; +constipation - denies dysuria or hematuria Musculoskeletal- denies joint pain or swelling Dermatologic- denies rash or bruising Neuro- denies focal weakness, numbness or tingling Psych- denies depression or anxiety . Physical Exam Vital Signs Date Time Temp Pulse Resp B/P Pulse Ox O2 Delivery O2 Flow Rate FiO2 12/19/16 15:34 36.6 97 16 131/76 93 Room Air 12/19/16 10:00 Room Air 12/19/16 09:18 116 19 124/62 90 12/19/16 08:04 94 Room Air 12/19/16 07:52 115 20 167/95 94 12/19/16 06:00 99 22 155/83 95 Room Air 12/19/16 04:37 36.8 114 22 135/72 95 Room Air General Appearance: WD/WN, no apparent distress Head: normocephalic Eyes: normal inspection ENT: normal ENT inspection Neck: supple, no JVD Respiratory/Chest: chest non-tender, lungs clear Cardiovascular: regular rate, rhythm, no edema, no gallop, no JVD Abdomen/GI: normal bowel sounds, non tender, soft, no organomegaly Extremities/Musculoskelatal: normal inspection, no calf tenderness, normal capillary refill Neurologic/Psych: no motor/sensory deficits, alert, normal mood/affect Skin: normal color, warm/dry, no rash General- awake; alert; NAD Eyes- EOMI; no scleral icterus ENT- +dentures Neck- no stridor; trachea midline Lungs- CTA bilaterally; no wheezes/crackles Heart- RRR Abdomen- soft; mildly diffusely tender to palpation; nBS Back- no gross abnormalities Extremities- no c/c/e; no deformity Neuro- no focal deficits Skin- no appreciable rash . Diagnostics Laboratory Results Results Past 24 Hours Test 12/19/16 04:55 12/19/16 05:01 12/19/16 12:03 Range/Units White Blood Count 4.92 4.8-10.8 K/uL Red Blood Count 4.29 4.2-5.4 M/uL Hemoglobin 12.2 12.0-16.0 g/dL Hematocrit 38.0 37-47 % Mean Corpuscular Volume 88.6 80-100 fL Mean Corpuscular Hemoglobin 28.4 25-34 pg Mean Corpuscular Hemoglobin Concent 32.1 32-36 g/dl Platelet Count 269 130-400 K/uL Mean Platelet Volume 9.0 7.4-10.4 fL Neutrophils (%) (Auto) 68.3 % Lymphocytes (%) (Auto) 19.5 % Monocytes (%) (Auto) 12.0 % Eosinophils (%) (Auto) 0.0 % Basophils (%) (Auto) 0.2 % Neutrophils # (Auto) 3.36 1.4-6.5 K/uL Lymphocytes # (Auto) 0.96 1.2-3.4 K/uL Monocytes # (Auto) 0.59 0.11-0.59 K/uL Eosinophils # (Auto) 0.00 0-0.5 K/uL Basophils # (Auto) 0.01 0-0.2 K/uL RDW Standard Deviation 47.0 36.4-46.3 fL RDW Coefficient of Variation 14.4 11.5-14.5 % Immature Granulocyte % (Auto) 0.0 % Immature Granulocyte # (Auto) 0.00 0.00-0.02 K/uL Sodium Level 135 136-145 mmol/L Potassium Level 4.3 3.5-5.1 mmol/L Chloride Level 94 98-107 mmol/L Carbon Dioxide Level 34 21-32 mmol/L Anion Gap 7.0 3-11 mmol/L Blood Urea Nitrogen 26 7-18 mg/dl Creatinine 1.20 0.60-1.20 mg/dl Est Creatinine Clear Calc Drug Dose 38.4 ml/min Estimated GFR () 50.8 Estimated GFR (Non- 43.9 BUN/Creatinine Ratio 21.3 10-20 Random Glucose 199 70-99 mg/dl Calcium Level 9.4 8.5-10.1 mg/dl Total Bilirubin 0.8 0.2-1 mg/dl Aspartate Amino Transf (AST/SGOT) 14 15-37 U/L Alanine Aminotransferase (ALT/SGPT) 27 12-78 U/L Alkaline Phosphatase 64 45-117 U/L Total Protein 8.0 6.4-8.2 gm/dl Albumin 4.2 3.4-5.0 gm/dl Globulin 3.8 2.5-4.0 gm/dl Albumin/Globulin Ratio 1.1 0.9-2 Procalcitonin 0.10 0-0.5 ng/ml Bedside Lactic Acid Venous 1.36 0.90-1.70 mmol/L Bedside Glucose 109 70-90 mg/dl Diagnostic Radiology CT a/p 1. Moderate grade small bowel obstruction with transition point within the right anterior abdomen. Minimal mesenteric infiltration and fluid. No free air, pneumatosis or portal venous gas. 2. Right middle lobe airspace opacity which is suggestive of pneumonia. Impression Assessment and Plan Patient is a 76 y/o female who presents with SBO. SBO - General surgery consulted - NGT placed - NPO except meds/ice chips - continue IVF's, pain and anti-nausea medications PRN HTN - continue atenolol and diltiazem Type 2 DM - hold oral medications - SSI while inpatient Hypothyroidism - continue levothyroxine DVT prophylaxis with SCD's In regards to RML opacity noted on imaging, there is very low clinical suspicion for pneumonia. Patient is afebrile, normal WBC count, no oxygen requirements, was not having symptoms at home c/w pneumonia and procalcitonin level is normal. Therefore will not treat image. Anticipate discharge home Advanced Directives Existing Living Will: Yes Existing Power of Digital Marketing Associate: Yes VTE Prophylaxis VTE Risk Assessment Done? Y/N: Yes Risk Level: Moderate
[2016-12-19 21:05] VITALS: BP 135/74; PULSE 103
[2016-12-19] MEDS: BIMATOPROST 0.01% OP SOLN 2.5 ML BTL OP SCH (21:07)
[2016-12-19 23:30] VITALS: BP 113/69; PULSE 84; TEMP 36.9; O2SAT 92
[2016-12-20] MEDS: SODIUM CHLORIDE 0.9% 1000ML 1,000 ML IV SCH ×3 (03:49→23:28)
[2016-12-20] MEDS: LEVOTHYROXINE 25 MCG TAB PO SCH (05:57)
[2016-12-20] MEDS: INSULIN ASPART 100 UNITS/ML 3 ML PEN SC SCH ×4 (05:57→21:41)
[2016-12-20 06:51] LABS: HEMATOCRIT 31.6 % (37-47); MEAN CELL VOLUME 90.3 fL (80-100); MEAN CORPUSCULAR HEMOGLOBIN 27.4 pg (25-34); MEAN CORPUSCULAR HGB CONC 30.4 g/dl (32-36); PLATELET COUNT 229 K/uL (130-400); WHITE BLOOD COUNT 6.32 K/uL (4.8-10.8)
[2016-12-20 07:52] VITALS: BP 148/70; PULSE 92; TEMP 37.2; O2SAT 93
[2016-12-20 08:23] LABS: BUN/CREATININE RATIO 29.6 (10-20); CALCIUM 8.1 mg/dl (8.5-10.1); CREATININE 0.68 mg/dl (0.60-1.20); POTASSIUM 3.9 mmol/L (3.5-5.1)
[2016-12-20] MEDS: DILTIAZEM HCL 180 MG CAPCR PO SCH (08:48)
--- NOTE | 2016-12-20 09:00 | Surgery Progress Note ---
Surgery Progress Note Date of Service Dec 20, 2016. Subjective Post OP Day: HD # 1 + feeling well, + flatus, + pain controlled, No bowel movement, No nausea, No vomiting Objective Vital Signs: Date Time Temp Pulse Resp B/P Pulse Ox O2 Delivery O2 Flow Rate FiO2 12/20/16 07:52 37.2 92 18 148/70 93 Room Air 12/19/16 23:30 36.9 84 16 113/69 92 Room Air 12/19/16 23:20 Room Air 12/19/16 21:05 103 135/74 12/19/16 19:30 Room Air 12/19/16 16:00 Room Air 12/19/16 15:34 36.6 97 16 131/76 93 Room Air 12/19/16 10:00 Room Air 12/19/16 09:18 116 19 124/62 90 General Appearance: WD/WN, no apparent distress Head: normocephalic, atraumatic Neck: trachea midline Respiratory/Chest: lungs clear, normal breath sounds, no respiratory distress, no accessory muscle use Cardiovascular: regular rate, rhythm Abdomen: non distended, soft, + tenderness (mild) Laboratory Results: Results Past 24 Hours Test 12/19/16 12:03 12/19/16 18:00 12/19/16 23:29 12/20/16 05:47 Range/Units Bedside Glucose 109 95 93 84 70-90 mg/dl Test 12/20/16 06:22 Range/Units White Blood Count 6.32 4.8-10.8 K/uL Red Blood Count 3.50 4.2-5.4 M/uL Hemoglobin 9.6 12.0-16.0 g/dL Hematocrit 31.6 37-47 % Mean Corpuscular Volume 90.3 80-100 fL Mean Corpuscular Hemoglobin 27.4 25-34 pg Mean Corpuscular Hemoglobin Concent 30.4 32-36 g/dl RDW Standard Deviation 48.1 36.4-46.3 fL RDW Coefficient of Variation 14.6 11.5-14.5 % Platelet Count 229 130-400 K/uL Mean Platelet Volume 9.0 7.4-10.4 fL Sodium Level 141 136-145 mmol/L Potassium Level 3.9 3.5-5.1 mmol/L Chloride Level 105 98-107 mmol/L Carbon Dioxide Level 30 21-32 mmol/L Anion Gap 6.0 3-11 mmol/L Blood Urea Nitrogen 20 7-18 mg/dl Creatinine 0.68 0.60-1.20 mg/dl Est Creatinine Clear Calc Drug Dose 67.8 ml/min Estimated GFR () 98.5 Estimated GFR (Non- 85.0 BUN/Creatinine Ratio 29.6 10-20 Random Glucose 92 70-99 mg/dl Calcium Level 8.1 8.5-10.1 mg/dl Assessment & Plan Small Bowel Obstruction -afebrile, vitals stable - no leukocytosis - +NGT output - abdomen soft, benign - passing flatus Plan: D/C NGT Start clear liquids Continue IV fluids, IV antibiotics, and IV pain medication prn Will continue to follow Dr. Felder has seen and examined patient, agrees with assessment and plan.
[2016-12-20] MEDS ORDERED: NURSING DECISION MEDICATION ORDER SCH (10:00)
--- NOTE | 2016-12-20 14:20 | Progress Note ---
Internal Med Progress Note Date of Service: Dec 20, 2016. Provider Documentation: SUBJECTIVE: of of ng tube tolerating clears passing flatus no nausea or abdominal pain OBJECTIVE: Vital Signs-as noted below Exam: General-Alert and oriented ENT-normal hearing Neck-no neck masses Lungs-cta b/l no wheezing or crackles Heart-s1 and s2 heard regular rate and rhythm no murmurs Abdomen-soft bowel sounds present non tender no distension Extremities-no edema no erythema Neuro-Alert and oriented moves extremities Lab data as noted below. ASSESSMENT & PLAN: Patient is a 76 y/o female who presents with SBO. SBO currently off of NG tube tolerating clears passing flatus but no bowel movement yet will monitor. HTN stable on atenolol and diltiazem Type 2 DM holding oral medications ISS while inpatient will monitor Hypothyroidism On levothyroxine DVT prophylaxis with SCD's DISPOSITION possible d/c in 1-2 days Vital Signs: Date Time Temp Pulse Resp B/P Pulse Ox O2 Delivery O2 Flow Rate FiO2 12/20/16 08:00 Room Air 12/20/16 07:52 37.2 92 18 148/70 93 Room Air 12/19/16 23:30 36.9 84 16 113/69 92 Room Air 12/19/16 23:20 Room Air 12/19/16 21:05 103 135/74 12/19/16 19:30 Room Air 12/19/16 16:00 Room Air 12/19/16 15:34 36.6 97 16 131/76 93 Room Air Lab Results: Results Past 24 Hours Test 12/19/16 18:00 12/19/16 23:29 12/20/16 05:47 12/20/16 06:22 Range/Units Bedside Glucose 95 93 84 70-90 mg/dl White Blood Count 6.32 4.8-10.8 K/uL Red Blood Count 3.50 4.2-5.4 M/uL Hemoglobin 9.6 12.0-16.0 g/dL Hematocrit 31.6 37-47 % Mean Corpuscular Volume 90.3 80-100 fL Mean Corpuscular Hemoglobin 27.4 25-34 pg Mean Corpuscular Hemoglobin Concent 30.4 32-36 g/dl RDW Standard Deviation 48.1 36.4-46.3 fL RDW Coefficient of Variation 14.6 11.5-14.5 % Platelet Count 229 130-400 K/uL Mean Platelet Volume 9.0 7.4-10.4 fL Sodium Level 141 136-145 mmol/L Potassium Level 3.9 3.5-5.1 mmol/L Chloride Level 105 98-107 mmol/L Carbon Dioxide Level 30 21-32 mmol/L Anion Gap 6.0 3-11 mmol/L Blood Urea Nitrogen 20 7-18 mg/dl Creatinine 0.68 0.60-1.20 mg/dl Est Creatinine Clear Calc Drug Dose 67.8 ml/min Estimated GFR () 98.5 Estimated GFR (Non- 85.0 BUN/Creatinine Ratio 29.6 10-20 Random Glucose 92 70-99 mg/dl Calcium Level 8.1 8.5-10.1 mg/dl Test 12/20/16 11:59 Range/Units Bedside Glucose 108 70-90 mg/dl
[2016-12-20 15:26] VITALS: BP 156/85; PULSE 88; TEMP 37.1; O2SAT 96
[2016-12-20] MEDS: CIPROFLOXACIN 500 MG TAB PO SCH (21:33)
[2016-12-20] MEDS: BIMATOPROST 0.01% OP SOLN 2.5 ML BTL OP SCH (21:33)
[2016-12-20 23:00] VITALS: BP 110/62; PULSE 67; TEMP 37.1; O2SAT 92
[2016-12-21] MEDS ORDERED: TRAMADOL HCL 50 MG TAB PO PRN (01:00)
[2016-12-21] MEDS: MoRPHine SULFATE 2 MG/ML CARP IV PRN ×2 (03:52→10:01)
[2016-12-21] MEDS: LEVOTHYROXINE 25 MCG TAB PO SCH (05:37)
[2016-12-21 07:14] VITALS: BP 147/77; PULSE 61; TEMP 36.8; O2SAT 93
[2016-12-21] MEDS: CIPROFLOXACIN 500 MG TAB PO SCH (09:29)
[2016-12-21] MEDS: DILTIAZEM HCL 180 MG CAPCR PO SCH (09:29)
[2016-12-21] MEDS: SODIUM CHLORIDE 0.9% 1000ML 1,000 ML IV SCH ×2 (09:31→19:10)
[2016-12-21] MEDS: INSULIN ASPART 100 UNITS/ML 3 ML PEN SC SCH ×4 (09:37→21:00)
--- NOTE | 2016-12-21 09:42 | Surgery Progress Note ---
Surgery Progress Note Date of Service Dec 21, 2016. Subjective + feeling well F/U SBO, pt is doing better, passed more gas, pt denies abdominal pain, no nausea, no vomiting, Objective Vital Signs: Date Time Temp Pulse Resp B/P Pulse Ox O2 Delivery O2 Flow Rate FiO2 12/21/16 07:14 36.8 61 20 147/77 93 Room Air 12/21/16 00:25 Room Air 12/20/16 23:00 37.1 67 16 110/62 92 Room Air 12/20/16 16:30 Room Air 12/20/16 15:26 37.1 88 18 156/85 96 Room Air General Appearance: WD/WN Head: normocephalic Neck: supple, no JVD Respiratory/Chest: chest non-tender, lungs clear, normal breath sounds Cardiovascular: regular rate, rhythm, no edema, no gallop, no JVD Abdomen: normal bowel sounds, non tender, non distended, soft, no organomegaly Extremities: normal range of motion, non-tender, normal inspection (left foot pain, but no edema, no redness, pt had left foot pain in the past, ) Laboratory Results: Results Past 24 Hours Test 12/20/16 11:59 12/20/16 17:12 12/20/16 20:35 12/21/16 08:04 Range/Units Bedside Glucose 108 84 240 126 70-90 mg/dl
[2016-12-21] MEDS ORDERED: NURSING VERBAL MED ORDER ONE (09:45)
--- NOTE | 2016-12-21 09:45 | Surgery Progress Note ---
Surgery Progress Note Date of Service Dec 21, 2016. Subjective + feeling well F/U SBO pt is doing better, pt denies abdominal pain, no nausea, no vomiting, passed more gas. Objective Vital Signs: Date Time Temp Pulse Resp B/P Pulse Ox O2 Delivery O2 Flow Rate FiO2 12/21/16 07:14 36.8 61 20 147/77 93 Room Air 12/21/16 00:25 Room Air 12/20/16 23:00 37.1 67 16 110/62 92 Room Air 12/20/16 16:30 Room Air 12/20/16 15:26 37.1 88 18 156/85 96 Room Air General Appearance: WD/WN Head: normocephalic Neck: supple, no JVD Respiratory/Chest: chest non-tender, lungs clear Cardiovascular: regular rate, rhythm, no edema, no gallop, no JVD Abdomen: normal bowel sounds, non tender, non distended, soft Extremities: normal range of motion, non-tender, normal inspection (pt has left foot pain, but no edema, no redness, pt had left foot pain in the past. ) Laboratory Results: Results Past 24 Hours Test 12/20/16 11:59 12/20/16 17:12 12/20/16 20:35 12/21/16 08:04 Range/Units Bedside Glucose 108 84 240 126 70-90 mg/dl Assessment & Plan IMP, parital SBO continue treatment, dulcolax 10mg HI, Dulcolax 10 mg po will F/U,
[2016-12-21] MEDS ORDERED: BISACODYL 5 MG TABEC PO ONE (10:15)
[2016-12-21] MEDS ORDERED: BISACODYL 5 MG TABEC PO SCH (10:15)
[2016-12-21] MEDS ORDERED: BISACODYL 10 MG SUPP PR ONE (10:15)
--- NOTE | 2016-12-21 11:51 | DIAGNOSTIC IMAGING REPORT ---
[facility] CLINICAL HISTORY: SBO COMPARISON STUDY: 12/19/2016 FINDINGS: There are postsurgical changes of a lumbar spinal fusion. There are left-sided sacroiliac bolts. There are postsurgical changes of a total left hip arthroplasty. There is a mildly dilated left mid abdominal small bowel loop measuring 33 mm.. IMPRESSION: Nonspecific bowel gas pattern with a minimally dilated left mid abdominal small bowel measuring 33 mm. Electronically signed by: Daniel Bautista M.D. 12/21/2016 11:49 AM Dictated Date/Time: 12/21/2016 11:47 AM
[2016-12-21] MEDS: HYDROmorphone INJ 0.5 MG/0.5 ML SYR IV PRN ×4 (12:03→22:15)
--- NOTE | 2016-12-21 12:30 | DIAGNOSTIC IMAGING REPORT ---
LEFT FOOT MIN 3 VIEWS ROUTINE CLINICAL HISTORY: Left foot pain. COMPARISON: None FINDINGS: The tarsometatarsal joints are intact. There is moderate posterior and plantar calcaneal spurring. There is mild to moderate arthritis within multiple articulations of the left foot. There is no acute fracture or suspicious osseous lesion. IMPRESSION: 1. No acute fracture or dislocation of the left foot. 2. 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 Electronically signed by: Jordy Domingo M.D. 12/21/2016 12:28 PM Dictated Date/Time: 12/21/2016 12:27 PM
[2016-12-21] MEDS ORDERED: BISACODYL 10 MG SUPP ONE (13:01)
[2016-12-21] MEDS ORDERED: CEFAZOLIN PHARMACY CONSULT IN PROGRESS PRN (15:15)
[2016-12-21 15:34] VITALS: BP 166/81; PULSE 81; TEMP 37.7; O2SAT 94
--- NOTE | 2016-12-21 16:32 | DIAGNOSTIC IMAGING REPORT ---
LEFT LOWER EXTREMITY VENOUS DOPPLER CLINICAL HISTORY: Evaluate for deep venous thrombus. Left lower extremity pain. COMPARISON STUDY: No previous studies for comparison. TECHNIQUE: Sonography of the deep venous system of the left lower extremity was performed. Compression and augmentation were evaluated. FINDINGS: The common femoral, superficial femoral and popliteal veins were compressible. Augmentation was normal. Flow was shown within the deep calf vessels. IMPRESSION: No evidence of deep venous thrombus within the left lower extremity. Electronically signed by: Jordy Domingo M.D. 12/21/2016 4:30 PM Dictated Date/Time: 12/21/2016 4:29 PM
--- NOTE | 2016-12-21 17:23 | DIAGNOSTIC IMAGING REPORT ---
LEFT ANKLE MIN 3 VIEWS ROUTINE CLINICAL HISTORY: Left ankle pain and swelling. COMPARISON: None FINDINGS: Alignment of left ankle is anatomic. There is no fracture or suspicious lesion. Talar dome is intact. There is mild to moderate posterior and plantar calcaneal spurring. IMPRESSION: 1. No acute fracture or dislocation of the left ankle. 2. Mild to moderate posterior and plantar calcaneal spurring. Electronically signed by: Jordy Domingo M.D. 12/21/2016 5:21 PM Dictated Date/Time: 12/21/2016 5:20 PM
--- NOTE | 2016-12-21 17:48 | Progress Note ---
Internal Med Progress Note Date of Service: Dec 21, 2016. Provider Documentation: SUBJECTIVE: tolerating liquid diet moved bowels but having severe pain in left ankle region mild temp spike OBJECTIVE: Vital Signs-as noted below Exam: General-Alert and oriented ENT-normal hearing Neck-no neck masses Lungs-cta b/l no wheezing or crackles Heart-s1 and s2 heard regular rate and rhythm no murmurs Abdomen-soft bowel sounds present non tender no distension Extremities-left ankle region erythematous and mildly swollen Neuro-Alert and oriented moves extremities Lab data as noted below. ASSESSMENT & PLAN: Patient is a 76 y/o female who presents with SBO. SBO currently off of NG tube tolerating clears moved bowels surgery on board and appreciate inputs will monitor. Left ankle pain erythematous and sliglty swollen no trauma no dvt xrays unremarkable empirically started on iv Ancef will monitor. HTN on atenolol and diltiazem will monitor Type 2 DM holding oral medications ISS while inpatient will monitor Hypothyroidism On levothyroxine DVT prophylaxis with SCD's DISPOSITION to be determined Vital Signs: Date Time Temp Pulse Resp B/P Pulse Ox O2 Delivery O2 Flow Rate FiO2 12/21/16 15:34 37.7 81 16 166/81 94 Room Air 12/21/16 09:00 Room Air 12/21/16 07:14 36.8 61 20 147/77 93 Room Air 12/21/16 00:25 Room Air 12/20/16 23:00 37.1 67 16 110/62 92 Room Air Lab Results: Results Past 24 Hours Test 12/20/16 20:35 12/21/16 08:04 12/21/16 12:05 12/21/16 12:42 Range/Units Bedside Glucose 240 126 143 70-90 mg/dl Uric Acid 4.4 2.6-7.2 mg/dl Test 12/21/16 17:07 Range/Units Bedside Glucose 124 70-90 mg/dl
[2016-12-21] MEDS: CEFAZOLIN IV 1,000 MG in DEXTROSE 5% 50ML 50 ML IV SCH ×2 (19:06→23:37)
[2016-12-21 21:13] VITALS: BP 162/74; PULSE 84; O2SAT 89
[2016-12-21] MEDS: BIMATOPROST 0.01% OP SOLN 2.5 ML BTL OP SCH (21:19)
[2016-12-21 22:53] VITALS: BP 158/72; PULSE 73; TEMP 37.1; O2SAT 98
[2016-12-22] VITALS (7 sets, daily range): BP systolic 114–170; BP diastolic 64–78; PULSE 63–84; TEMP 37–39; O2SAT 92–96
[2016-12-22] MEDS: HYDROmorphone INJ 0.5 MG/0.5 ML SYR IV PRN ×6 (01:19→20:55)
[2016-12-22] MEDS: CEFAZOLIN IV 1,000 MG in DEXTROSE 5% 50ML 50 ML IV SCH ×2 (05:56→11:43)
[2016-12-22] MEDS: LEVOTHYROXINE 25 MCG TAB PO SCH (05:57)
[2016-12-22] MEDS: SODIUM CHLORIDE 0.9% 1000ML 1,000 ML IV SCH ×2 (05:57→17:14)
[2016-12-22 06:30] LABS: BASO % 0.1 %; BASO ABS # 0.01 K/uL (0-0.2); EOS % 0.9 %; HEMATOCRIT 27.8 % (37-47); IG% 0.1 %; MEAN CELL VOLUME 88.5 fL (80-100); MEAN CORPUSCULAR HEMOGLOBIN 28.3 pg (25-34); MEAN PLATELET VOLUME 8.8 fL (7.4-10.4); MONO % 12.4 %; NEUT % 62.5 %; PLATELET COUNT 214 K/uL (130-400); RED BLOOD COUNT 3.14 M/uL (4.2-5.4); WHITE BLOOD COUNT 6.68 K/uL (4.8-10.8)
[2016-12-22 07:36] LABS: COMPLETE YES
[2016-12-22] MEDS: DILTIAZEM HCL 180 MG CAPCR PO SCH (07:37)
[2016-12-22 07:49] LABS: CALCIUM 8.1 mg/dl (8.5-10.1); CREATININE 0.59 mg/dl (0.60-1.20); MAGNESIUM 1.6 mg/dl (1.8-2.4); POTASSIUM 3.5 mmol/L (3.5-5.1)
--- NOTE | 2016-12-22 09:27 | Surgery Progress Note ---
Surgery Progress Note Date of Service Dec 22, 2016. Subjective Post OP Day: HD # 3 + bowel movement, + diet (tolerating clearl liquids), + feeling well, + flatus, No SOB, No chest pain, No nausea, No vomiting Left foot pain, just had vascular ultrasound this morning. Severe pain, Tylenol not helping Objective Vital Signs: Date Time Temp Pulse Resp B/P Pulse Ox O2 Delivery O2 Flow Rate FiO2 12/22/16 07:36 72 147/73 12/22/16 07:30 Room Air 12/22/16 07:11 37.0 67 17 170/78 92 Room Air 12/21/16 23:40 Nasal Cannula 2.0 Humidified Oxygen 12/21/16 22:53 37.1 73 15 158/72 98 Nasal Cannula 2.0 12/21/16 21:13 84 14 162/74 89 Room Air 12/21/16 17:45 Room Air 12/21/16 15:34 37.7 81 16 166/81 94 Room Air General Appearance: WD/WN, no apparent distress Head: normocephalic, atraumatic Neck: trachea midline Respiratory/Chest: no respiratory distress, no accessory muscle use Abdomen: non tender, non distended, soft, no organomegaly Extremities: + pedal edema (left foot), + swelling (left foot) Laboratory Results: Results Past 24 Hours Test 12/21/16 12:05 12/21/16 12:42 12/21/16 17:07 12/21/16 20:43 Range/Units Bedside Glucose 143 124 143 70-90 mg/dl Uric Acid 4.4 2.6-7.2 mg/dl Test 12/22/16 06:00 Range/Units White Blood Count 6.68 4.8-10.8 K/uL Red Blood Count 3.14 4.2-5.4 M/uL Hemoglobin 8.9 12.0-16.0 g/dL Hematocrit 27.8 37-47 % Mean Corpuscular Volume 88.5 80-100 fL Mean Corpuscular Hemoglobin 28.3 25-34 pg Mean Corpuscular Hemoglobin Concent 32.0 32-36 g/dl Platelet Count 214 130-400 K/uL Mean Platelet Volume 8.8 7.4-10.4 fL Neutrophils (%) (Auto) 62.5 % Lymphocytes (%) (Auto) 24.0 % Monocytes (%) (Auto) 12.4 % Eosinophils (%) (Auto) 0.9 % Basophils (%) (Auto) 0.1 % Neutrophils # (Auto) 4.17 1.4-6.5 K/uL Lymphocytes # (Auto) 1.60 1.2-3.4 K/uL Monocytes # (Auto) 0.83 0.11-0.59 K/uL Eosinophils # (Auto) 0.06 0-0.5 K/uL Basophils # (Auto) 0.01 0-0.2 K/uL RDW Standard Deviation 46.5 36.4-46.3 fL RDW Coefficient of Variation 14.2 11.5-14.5 % Immature Granulocyte % (Auto) 0.1 % Immature Granulocyte # (Auto) 0.01 0.00-0.02 K/uL Red Blood Cell Morphology Unremarkable Sodium Level 139 136-145 mmol/L Potassium Level 3.5 3.5-5.1 mmol/L Chloride Level 104 98-107 mmol/L Carbon Dioxide Level 30 21-32 mmol/L Anion Gap 5.0 3-11 mmol/L Blood Urea Nitrogen 5 7-18 mg/dl Creatinine 0.59 0.60-1.20 mg/dl Est Creatinine Clear Calc Drug Dose 78.1 ml/min Estimated GFR () 103.2 Estimated GFR (Non- 89.0 BUN/Creatinine Ratio 8.0 10-20 Random Glucose 127 70-99 mg/dl Calcium Level 8.1 8.5-10.1 mg/dl Magnesium Level 1.6 1.8-2.4 mg/dl Assessment & Plan Small Bowel Obstruction- Resolved - afebrile, vitals stable - no leukocytosis - abdomen soft, benign - passing flatus and + bowel movements Plan: Advance diet to full liquids and then as tolerated Start stool softener daily as patient does at home Continue current management established by hospitalist service Our services signing off, thank you for consultation and involving us in the care of this patient. Follow-up with Dr. Felder [address] Felder has seen and examined patient, agrees with above stated findings and treatment plan.
--- NOTE | 2016-12-22 09:46 | DIAGNOSTIC IMAGING REPORT ---
ULTRASOUND LEFT LOWER EXTREMITY ARTERIAL; ANKLE-BRACHIAL INDICES CLINICAL HISTORY: Peripheral vascular disease. COMPARISON STUDY: No priors. TECHNIQUE: Real-time, grayscale, and color Doppler sonography of the arteries of the left lower extremity is performed from the inguinal crease to the foot. Ankle-brachial indices are calculated. Ankle-brachial indices: Right brachial pressure measures 184. Pressures in the right posterior tibial artery measure 212 for an MERT of 1.15, and pressures in the right dorsalis pedis artery measure 201 for an MERT of 1.09. Left ankle pressure measures 175. Pressures in the left posterior tibial artery measure 224 for an MERT of 1.22, and pressures in the left dorsalis pedis artery measure 193 for an MERT of 1.05. Left lower extremity: There is mild atherosclerotic plaque and irregularly seen throughout the arteries of the left lower extremity. There are normal triphasic arterial waveforms in the left common femoral artery with velocities measuring up to 118 cm/s. The left profunda femoris artery is patent with velocities measuring up to 70 cm/s. There are triphasic waveforms seen throughout the left superficial femoral artery. Velocities within the superficial femoral artery proximally measure up to 135 cm/s, in the midportion measure up to 168 cm/s, and in the distal portion measure up to 199 cm/s. There are biphasic arterial waveforms in the left popliteal artery with velocities measuring up to 116 cm/s. There is three-vessel runoff to the foot. Monophasic arterial waveforms are seen in the posterior tibial artery with velocities measuring up to 107 cm/s. There are biphasic waveforms in the anterior tibial artery with velocities measuring up to 140 cm/s. Monophasic waveforms are seen in the peroneal artery with velocities measuring up to 114 cm/s. There are monophasic waveforms in the dorsalis pedis artery with velocities measuring up to 279 cm/s. IMPRESSION: 1. Peripheral vascular disease with abnormal waveforms below the knee as above. There is no focal vessel cutoff seen throughout the arteries of the left lower extremity and there is three-vessel runoff to the foot. 2. There are elevated velocities within the dorsalis pedis artery suggesting stenosis. 3. Ankle-brachial indices as above. Dictated: 12/22/2016 8:58 AM Transcribed: 12/22/2016 9:46 AM Mart Electronically signed by: Zachary Ignacio M.D. 12/22/2016 10:22 AM Dictated Date/Time: 12/22/2016 8:58 AM
[2016-12-22] MEDS: INSULIN ASPART 100 UNITS/ML 3 ML PEN SC SCH ×4 (09:51→21:00)
[2016-12-22] MEDS ORDERED: TRAMADOL HCL 50 MG TAB PO PRN (12:15)
[2016-12-22] MEDS: GABAPENTIN 300 MG CAP PO SCH ×2 (13:08→21:02)
[2016-12-22] MEDS: OXYBUTYNIN CHLORIDE 5 MG TAB PO SCH ×2 (13:08→21:01)
[2016-12-22] MEDS ORDERED: MAGNESIUM SULFATE 1GM / D5W 1 GM in PREMIXED IN D5W 100 ML IV ONE (14:00)
--- NOTE | 2016-12-22 15:57 | Progress Note ---
Internal Med Progress Note Date of Service: Dec 22, 2016. Provider Documentation: SUBJECTIVE: having significant pain in her left ankle had mild temp spike tolerating diet moved bowels yesterday OBJECTIVE: Vital Signs-as noted below Exam: General-Alert and oriented ENT-normal hearing Neck-no neck masses Lungs-cta b/l no wheezing or crackles Heart-s1 and s2 heard regular rate and rhythm no murmurs Abdomen-soft bowel sounds present non tender no distension Extremities-left ankle region erythematous and swollen and tender Neuro-Alert and oriented moves extremities Lab data as noted below. ASSESSMENT & PLAN: Patient is a 76 y/o female who presents with SBO. SBO currently off of NG tube tolerating full liquid diet moved bowels surgery on board and appreciate inputs will monitor. Left ankle pain erythematous and swollen says she noticed pain after walking in hallway no dvt xrays unremarkable empirically started on iv Ancef arterial Doppler no acute findings will plan for MRI for any ligament sprain HTN on atenolol and diltiazem will monitor Type 2 DM holding oral medications ISS while inpatient will monitor Hypothyroidism On levothyroxine DVT prophylaxis with SCD's DISPOSITION to be determined Vital Signs: Date Time Temp Pulse Resp B/P Pulse Ox O2 Delivery O2 Flow Rate FiO2 12/22/16 15:12 37.7 84 18 170/64 96 Room Air 12/22/16 07:36 72 147/73 12/22/16 07:30 Room Air 12/22/16 07:11 37.0 67 17 170/78 92 Room Air 12/21/16 23:40 Nasal Cannula 2.0 Humidified Oxygen 12/21/16 22:53 37.1 73 15 158/72 98 Nasal Cannula 2.0 12/21/16 21:13 84 14 162/74 89 Room Air 12/21/16 17:45 Room Air Lab Results: Results Past 24 Hours Test 12/21/16 17:07 12/21/16 20:43 12/22/16 06:00 12/22/16 09:19 Range/Units Bedside Glucose 124 143 119 70-90 mg/dl White Blood Count 6.68 4.8-10.8 K/uL Red Blood Count 3.14 4.2-5.4 M/uL Hemoglobin 8.9 12.0-16.0 g/dL Hematocrit 27.8 37-47 % Mean Corpuscular Volume 88.5 80-100 fL Mean Corpuscular Hemoglobin 28.3 25-34 pg Mean Corpuscular Hemoglobin Concent 32.0 32-36 g/dl Platelet Count 214 130-400 K/uL Mean Platelet Volume 8.8 7.4-10.4 fL Neutrophils (%) (Auto) 62.5 % Lymphocytes (%) (Auto) 24.0 % Monocytes (%) (Auto) 12.4 % Eosinophils (%) (Auto) 0.9 % Basophils (%) (Auto) 0.1 % Neutrophils # (Auto) 4.17 1.4-6.5 K/uL Lymphocytes # (Auto) 1.60 1.2-3.4 K/uL Monocytes # (Auto) 0.83 0.11-0.59 K/uL Eosinophils # (Auto) 0.06 0-0.5 K/uL Basophils # (Auto) 0.01 0-0.2 K/uL RDW Standard Deviation 46.5 36.4-46.3 fL RDW Coefficient of Variation 14.2 11.5-14.5 % Immature Granulocyte % (Auto) 0.1 % Immature Granulocyte # (Auto) 0.01 0.00-0.02 K/uL Red Blood Cell Morphology Unremarkable Sodium Level 139 136-145 mmol/L Potassium Level 3.5 3.5-5.1 mmol/L Chloride Level 104 98-107 mmol/L Carbon Dioxide Level 30 21-32 mmol/L Anion Gap 5.0 3-11 mmol/L Blood Urea Nitrogen 5 7-18 mg/dl Creatinine 0.59 0.60-1.20 mg/dl Est Creatinine Clear Calc Drug Dose 78.1 ml/min Estimated GFR () 103.2 Estimated GFR (Non- 89.0 BUN/Creatinine Ratio 8.0 10-20 Random Glucose 127 70-99 mg/dl Calcium Level 8.1 8.5-10.1 mg/dl Magnesium Level 1.6 1.8-2.4 mg/dl Test 12/22/16 12:17 Range/Units Bedside Glucose 121 70-90 mg/dl
[2016-12-22] MEDS: ACETAMINOPHEN 325 MG TAB PO PRN (17:11)
[2016-12-22] MEDS ORDERED: PIPERACILL/TAZOBAC IV 3.375 GM in DEXTROSE 5% 100ML IV ONE (17:15)
[2016-12-22] MEDS ORDERED: PIPERACILL/TAZOBAC CONSULT ACTIVE PRN (17:15)
[2016-12-22] MEDS ORDERED: VANCOMYCIN CONSULT ACTIVE PRN (17:15)
[2016-12-22] MEDS ORDERED: VANCOMYCIN INJ 1,900 MG in SODIUM CHLORIDE 0.9% 500ML 500 ML IV ONE (17:15)
--- NOTE | 2016-12-22 17:17 | Pharmacy Progress Note ---
Pharmacy Antibiotic Consult Date of Service: Dec 22, 2016. Pharmacy Dosing Scope Pharmacy is consulted to initiate Vancomycin IV dosing therapy, order appropriate labs and adjust drug dose/frequency. Subjective The patient is a 76 year old female admitted on Dec 19, 2016 at 08:28. Objective Height (Feet): 5 Height (Inches): 2.00 Weight (Kilograms): 77.300 Lab Results (24hrs): Laboratory Tests Test 12/22/16 06:00 BUN/Creatinine Ratio 8.0 Blood Urea Nitrogen 5 mg/dl Creatinine 0.59 mg/dl White Blood Count 6.68 K/uL Red Blood Count 3.14 M/uL Hemoglobin 8.9 g/dL Hematocrit 27.8 % Mean Corpuscular Volume 88.5 fL Mean Corpuscular Hemoglobin 28.3 pg Mean Corpuscular Hemoglobin Concent 32.0 g/dl Platelet Count 214 K/uL Mean Platelet Volume 8.8 fL Neutrophils (%) (Auto) 62.5 % Lymphocytes (%) (Auto) 24.0 % Monocytes (%) (Auto) 12.4 % Eosinophils (%) (Auto) 0.9 % Basophils (%) (Auto) 0.1 % Neutrophils # (Auto) 4.17 K/uL Lymphocytes # (Auto) 1.60 K/uL Monocytes # (Auto) 0.83 K/uL Eosinophils # (Auto) 0.06 K/uL Basophils # (Auto) 0.01 K/uL Micro Results: Item Value Date Time Blood Culture Carloz Batch 12/22/16 1655 Blood Pending Blood Culture Carloz Batch 12/22/16 1655 Blood Pending Recent Pertinent Medications Item Value Date Time Piperacillin Sod/ 115 ml @ 28.75 mls/hr 12/22/16 2200 Tazobactam Sod Q8H/IV 3.375 gm/Dextrose Cefazolin Sodium 55 ml @ 100 mls/hr 12/21/16 1600 1000 mg/Dextrose Q6H/IV 12/22/16 1143 Assessment & Plan 76 yo F initiated on Ancef originally for possible cellulitis of ankle, now with worsening pain and spike in temperature. MD switched to broad spectrum antibiotics: Vancomycin and Zosyn IV. Blood cultures pending. Vancomycin * Loading dose: 1900 mg IV X 1 dose then: * Continue 1150 mg IV every 12 hours. * Goal trough level estimate for cellulitis: between ~15 mcg/mL * A trough level has been ordered for: 12/24/16 @1730 prior to the 1800 dose. Pharmacy will continue to follow and will adjust dose/frequency as necessary. Thank you
--- NOTE | 2016-12-22 19:42 | DIAGNOSTIC IMAGING REPORT ---
CHEST ONE VIEW PORTABLE CLINICAL HISTORY: Pulmonary congestion. Leg swelling. Small bowel obstruction. COMPARISON STUDY: 12/19/2016 FINDINGS: The heart is mildly enlarged. There is no failure. There is no lobar consolidation. There is an 11 mm opacity at the level of the right cardiophrenic angle. As no masses identified on the CT scan the abdomen pelvis performed 12/19/2016 in this area, this likely represents a summation. There is basilar atelectasis. There are no pleural effusions.[ IMPRESSION: 1. 11 mm opacity at the right medial lung base, likely representing a summation 2. Mild cardiomegaly. No evidence of overt failure 3. Basilar atelectasis Electronically signed by: Daniel Bautista M.D. 12/22/2016 7:41 PM Dictated Date/Time: 12/22/2016 7:39 PM
[2016-12-22] MEDS: PANTOprazole SOD 40 MG TAB PO SCH (20:59)
[2016-12-22] MEDS: BIMATOPROST 0.01% OP SOLN 2.5 ML BTL OP SCH (21:00)
[2016-12-22] MEDS: ASPIRIN 81 MG ECTAB PO SCH (21:01)
[2016-12-22] MEDS: AMITRIPTYLINE HCL 50 MG TAB PO SCH (21:01)
[2016-12-22] MEDS: MAGNESIUM OXIDE 400 MG TAB PO SCH (21:02)
[2016-12-22] MEDS: ATORVASTATIN 40 MG TAB PO SCH (21:02)
--- NOTE | 2016-12-22 22:11 | DIAGNOSTIC IMAGING REPORT ---
MRI LEFT ANKLE NO CONTRAST CLINICAL HISTORY: Severe left ankle pain and swelling. No trauma. No open wounds. COMPARISON STUDY: Conventional radiographic study dated 12/21/2016 FINDINGS: Imaging was performed in the sagittal, coronal, and axial planes. There are no areas of marrow replacement to indicate occult fracture or bone bruise. There is no evidence of avascular necrosis. There is no evidence of major ligamentous disruption. There is diffuse subcutaneous edema. There is a small joint effusion. There is calcaneal spurring. There is no evidence of tendon tear. There is mild edema within the intrinsic and plantar foot musculature. IMPRESSION: 1. No bony abnormalities identified 2. No evidence of tendon tear or ligamentous disruption 3. Diffuse soft tissue edema. Small joint effusion. 4. Minimal intramuscular edema. Electronically signed by: Daniel Bautista M.D. 12/22/2016 10:09 PM Dictated Date/Time: 12/22/2016 10:04 PM
[2016-12-22] MEDS: PIPERACILL/TAZOBAC IV 3.375 GM in DEXTROSE 5% 100ML 100 ML IV SCH (23:16)
[2016-12-23] MEDS: PIPERACILL/TAZOBAC IV 3.375 GM in DEXTROSE 5% 100ML 100 ML IV SCH ×3 (05:54→21:17)
[2016-12-23] MEDS: SODIUM CHLORIDE 0.9% 1000ML 1,000 ML IV SCH ×2 (05:54→19:23)
[2016-12-23] MEDS: VANCOMYCIN INJ 1,150 MG in SODIUM CHLORIDE 0.9% 250ML 250 ML IV SCH ×2 (05:54→19:00)
[2016-12-23] MEDS: LEVOTHYROXINE 25 MCG TAB PO SCH (05:55)
[2016-12-23 07:25] VITALS: BP 136/76; PULSE 60; TEMP 36.9; O2SAT 93
[2016-12-23 08:00] VITALS: O2SAT 93
[2016-12-23] MEDS: INSULIN ASPART 100 UNITS/ML 3 ML PEN SC SCH ×4 (08:00→21:16)
[2016-12-23] MEDS: GABAPENTIN 300 MG CAP PO SCH ×3 (08:27→20:44)
[2016-12-23] MEDS: HYDROmorphone INJ 0.5 MG/0.5 ML SYR IV PRN ×5 (08:27→23:07)
[2016-12-23] MEDS: DOCUSATE SODIUM 100 MG CAP PO SCH (08:27)
[2016-12-23] MEDS: OXYBUTYNIN CHLORIDE 5 MG TAB PO SCH ×3 (08:28→20:43)
[2016-12-23] MEDS: PANTOprazole SOD 40 MG TAB PO SCH ×2 (08:28→18:47)
[2016-12-23] MEDS: DILTIAZEM HCL 180 MG CAPCR PO SCH (08:28)
[2016-12-23] MEDS: MAGNESIUM OXIDE 400 MG TAB PO SCH ×2 (08:28→20:44)
[2016-12-23] MEDS ORDERED: DOCUSATE SODIUM 100 MG CAP PO SCH (09:00)
[2016-12-23 15:17] VITALS: BP 145/78; PULSE 72; TEMP 37.2; O2SAT 96
--- NOTE | 2016-12-23 15:53 | Progress Note ---
Internal Med Progress Note Date of Service: Dec 23, 2016. Provider Documentation: SUBJECTIVE: Still having significant pain in her left ankle tolerating diet no abdominal pain no fevers today no sob OBJECTIVE: Vital Signs-as noted below Exam: General-Alert and oriented ENT-normal hearing Neck-no neck masses Lungs-cta b/l no wheezing or crackles Heart-s1 and s2 heard regular rate and rhythm no murmurs Abdomen-soft bowel sounds present non tender no distension Extremities-left ankle region erythematous and swollen and tender Neuro-Alert and oriented moves extremities Lab data as noted below. ASSESSMENT & PLAN: Patient is a 76 y/o female who presents with SBO and hospital stay complicated by severe left ankle pain and swelling SBO currently off of NG tube tolerating full liquid diet moved bowels surgery on board and appreciate inputs will monitor. Left ankle pain erythematous and swollen says she noticed pain after walking in hallway no dvt xrays unremarkable empirically started on iv Ancef arterial Doppler no acute findings had temp spike abx changed to Zosyn and iv vancomycin MRI -diffuse soft tissue edema and small joint effusion consulted ortho for joint effusion will monitor HTN on atenolol and diltiazem will monitor Type 2 DM holding oral medications ISS while inpatient will monitor Hypothyroidism On levothyroxine DVT prophylaxis with SCD's DISPOSITION to be determined pt/ot when able Vital Signs: Date Time Temp Pulse Resp B/P Pulse Ox O2 Delivery O2 Flow Rate FiO2 12/23/16 15:17 37.2 72 18 145/78 96 Room Air 12/23/16 08:00 93 Room Air 12/23/16 07:25 36.9 60 18 136/76 93 Room Air 12/23/16 00:00 Room Air 12/22/16 23:07 37.1 63 14 114/69 93 Room Air 12/22/16 21:05 83 132/68 12/22/16 18:11 37.8 12/22/16 16:45 39.0 Lab Results: Results Past 24 Hours Test 12/22/16 17:03 12/22/16 21:11 12/23/16 08:16 12/23/16 12:05 Range/Units Bedside Glucose 122 108 127 125 70-90 mg/dl Microbiology Results 12/22/16 Blood Culture, Received Pending 12/22/16 Blood Culture, Received Pending 12/22/16 Urine Culture - Preliminary, Resulted NO GROWTH - LESS THAN 1,000 COLONIES/...
[2016-12-23] MEDS: BIMATOPROST 0.01% OP SOLN 2.5 ML BTL OP SCH (20:42)
[2016-12-23] MEDS: ASPIRIN 81 MG ECTAB PO SCH (20:44)
[2016-12-23] MEDS: ATORVASTATIN 40 MG TAB PO SCH (20:44)
[2016-12-23] MEDS: AMITRIPTYLINE HCL 50 MG TAB PO SCH (20:44)
[2016-12-23 20:47] VITALS: BP 156/60; PULSE 89
[2016-12-23 23:00] VITALS: BP 130/68; PULSE 83; TEMP 37.1; O2SAT 94
--- NOTE | 2016-12-24 04:00 | ORTHOPEDIC CONSULTATION ---
DATE OF CONSULTATION: 12/23/2016 HISTORY OF PRESENT ILLNESS: This is a 76-year-old female seen at the request Dr. Coronado and Dr. Jose for left lower extremity discomfort. Apparently, patient was admitted on December 19 secondary to a small bowel obstruction, which had been ongoing several days prior to her admission. She was admitted to the hospital and treated for small bowel obstruction. She stated that, as part of her treatment she was encouraged to walk to help encourage her bowel movements, and felt a sudden pain in her left lower extremity. She noted that the discomfort seemed to worsen somewhat since this occurred on 12/21/2016. The patient was walking in the conte, had no trauma, did not slip, did not fall; and then developed left ankle pain. She was noted by the garage hand on December 21 that she had an erythematous and slightly swollen left ankle without trauma, no DVT. X-rays unremarkable. The patient was started empirically on IV Ancef. The patient continued to have discomfort on December 22, and at that point patient had an arterial Doppler with no acute findings. Continued IV Ancef and patient was then scheduled for an MRI of the ankle. MRI results without any significant findings of any fractures or ligamentous injury. Instead noted no bony abnormalities. No evidence of tendon tear or ligamentous disruption, diffuse soft tissue edema with a small joint effusion and minimal intramuscular edema. The patient continued on IV antibiotics. Orthopedics was consulted. The patient states she has had no recent trauma, no remote trauma, and no prior surgeries to the left foot or ankle. She has had no associated fevers or chills to the left lower extremity. The patient states she did have a left total knee arthroplasty performed by Dr. Johnson several years ago which has been functioning well for her. No redness or swelling. No pain in the left knee. PAST MEDICAL HISTORY: Diabetes mellitus, hypertension, cardiomegaly, history of small bowel obstruction, diabetic neuropathy, hypercholesterolemia, hypothyroidism, COPD, gastroesophageal reflux. PAST SURGICAL HISTORY: Surgery for small bowel obstruction. ALLERGIES: CARBAMAZEPINE, OXAPROZIN, VALPROIC ACID, PREDNISONE WITH HISTORY OF GLAUCOMA BOTH EYES AND UNABLE TO TAKE PREDNISONE. SOCIAL HISTORY: Denies tobacco use, denies alcohol or drug use. She is . She is retired. She lives with her family. PHYSICAL EXAMINATION: GENERAL: This is a 76-year-old woman lying supine in her hospital room bed. Her and her daughter present. EXTREMITIES: Examination of the left lower extremity demonstrates edema of the left ankle, hindfoot, midfoot region compared to the right foot. Edema on the left is 3/4, on the right wrist 2/4. Dorsalis pedis and posterior tibial pulses are palpable 2/4 bilateral lower extremities. Feet are warm. Cap refill is brisk 2 seconds. The patient has diffuse discomfort in the left lower extremity and mild erythema on medial and lateral aspects of the hindfoot. No palpable fluctuance or fluid collections are appreciated. The patient has diffuse discomfort with attempted active and passive range of motion of the left hindfoot and ankle. No evidence of abscess. There is minimal hair growth bilateral lower extremities. No crepitation, no subcutaneous air with palpation or range of motion of the left lower extremity compared to the right. Radiographs, MRI and laboratories were reviewed. IMPRESSION: 1. Left lower extremity cellulitis. 2. Osteoarthritis, left ankle and foot. 3. Ankle effusion without evidence of abscess or fluid collection. 4. Possibility of gout. RECOMMENDATIONS: At this time, there is no clear evidence of any abscess or fluid collection for drainage or operative intervention. Radiographs and MRI demonstrate no fractures and no evidence of ligamentous disruption. It appears that this patient has a case of cellulitis until proven otherwise. Continue with IV antibiotics. Minimal weightbearing for transfers only. Alternate heat or ice for comfort. Consider possibility of gouty flare up. We will follow with you. Thanks for the opportunity to consult in the care of this patient, Yael Montgomery. DARLYN
[2016-12-24] MEDS: HYDROmorphone INJ 0.5 MG/0.5 ML SYR IV PRN ×4 (05:28→16:46)
[2016-12-24] MEDS: VANCOMYCIN INJ 1,150 MG in SODIUM CHLORIDE 0.9% 250ML 250 ML IV SCH ×2 (05:34→20:11)
[2016-12-24] MEDS: LEVOTHYROXINE 25 MCG TAB PO SCH (05:34)
[2016-12-24] MEDS: PIPERACILL/TAZOBAC IV 3.375 GM in DEXTROSE 5% 100ML 100 ML IV SCH ×2 (05:35→14:05)
[2016-12-24 06:27] LABS: CREATININE 0.76 mg/dl (0.60-1.20)
[2016-12-24 07:00] VITALS: BP 133/61; PULSE 69; TEMP 36.9; O2SAT 93
[2016-12-24] MEDS ORDERED: COLCHICINE 0.6 MG TAB PO ONE ×2 (08:15→12:00)
--- NOTE | 2016-12-24 08:33 | HISTORY & PHYSICAL EXAMINATION ---
DATE OF ADMISSION: 12/19/2016 CHIEF COMPLAINT: Left ankle pain. HISTORY OF PRESENT ILLNESS: This patient has been in the hospital as noted for small bowel obstruction. She was seen by Dr. Ruffin yesterday for discomfort in the ankle that was felt to be cellulitis. Today, she continues to complain of pain and discomfort in the ankle. It really has not improved much. She has been mostly on bed rest with elevation and IV antibiotics. PHYSICAL EXAMINATION: The patient is comfortable in bed. She has her leg elevated. There is obvious swelling about the ankle area with some small redness on the lateral side. She does have dorsiflexion, plantar flexion with mild discomfort but not severe discomfort. Neurological and vascular function is intact. IMPRESSION: Cellulitis. PLAN: At this point, no change in treatment plan. The patient seems stable and I agree that there is nothing here to operate on, continued expectant treatment with elevation, rest and IV antibiotics. The patient may benefit from an ankle foot orthosis or walking boot.
[2016-12-24] MEDS: OXYBUTYNIN CHLORIDE 5 MG TAB PO SCH ×3 (08:51→22:11)
[2016-12-24] MEDS: GABAPENTIN 300 MG CAP PO SCH ×3 (08:51→22:11)
[2016-12-24] MEDS: DOCUSATE SODIUM 100 MG CAP PO SCH (08:51)
[2016-12-24] MEDS: PANTOprazole SOD 40 MG TAB PO SCH ×2 (08:51→18:17)
[2016-12-24] MEDS: DILTIAZEM HCL 180 MG CAPCR PO SCH (08:52)
[2016-12-24] MEDS: MAGNESIUM OXIDE 400 MG TAB PO SCH ×2 (08:52→22:11)
[2016-12-24] MEDS: SODIUM CHLORIDE 0.9% 1000ML 1,000 ML IV SCH (08:57)
[2016-12-24] MEDS: INSULIN ASPART 100 UNITS/ML 3 ML PEN SC SCH ×4 (08:58→22:16)
[2016-12-24 15:01] VITALS: BP 153/81; PULSE 78; TEMP 37.8; O2SAT 86
[2016-12-24] MEDS ORDERED: METHYLPREDNISOLONE IV 40 MG in SYRINGE 0 ML IV ONE (15:15)
[2016-12-24] MEDS ORDERED: VANCOMYCIN TROUGH SCH (17:30)
[2016-12-24 18:05] VITALS: BP 156/74; PULSE 85; TEMP 38.2; O2SAT 92
[2016-12-24] MEDS: ACETAMINOPHEN 325 MG TAB PO PRN (18:18)
[2016-12-24 18:39] VITALS: BP 175/80; PULSE 85; TEMP 37.4; O2SAT 97
--- NOTE | 2016-12-24 19:10 | Progress Note ---
Internal Med Progress Note Date of Service: Dec 24, 2016. Provider Documentation: SUBJECTIVE: Still having significant pain in her left ankle and not able to put weight on it tolerating diet had temp spike today no other complaints OBJECTIVE: Vital Signs-as noted below Exam: General-Alert and oriented ENT-normal hearing Neck-no neck masses Lungs-cta b/l no wheezing or crackles Heart-s1 and s2 heard regular rate and rhythm no murmurs Abdomen-soft bowel sounds present non tender no distension Extremities-left ankle region erythematous and swollen and tender Neuro-Alert and oriented moves extremities Lab data as noted below. ASSESSMENT & PLAN: Patient is a 76 y/o female who presents with SBO and hospital stay complicated by severe left ankle pain and swelling SBO currently off of NG tube tolerating low fiber diet moved bowels surgery on board and appreciate inputs stable Left ankle pain erythematous and swollen says she noticed pain after walking in hallway no dvt xrays unremarkable initially empirically started on iv Ancef arterial Doppler no acute findings had temp spike again abx changed to Zosyn and iv vancomycin MRI -diffuse soft tissue edema and small joint effusion consulted ortho for joint effusion uric acid 4.4 possibly gout/pseudogout by orthoreceivbed colchicine and iv solumedrol today had temp spike again today 12/24/16- possibly drug fever( had fever on Ancef) stopping Zosyn and monitor HTN on atenolol and diltiazem will monitor Type 2 DM holding oral medications ISS while inpatient will monitor Hypothyroidism On levothyroxine DVT prophylaxis with SCD's DISPOSITION to be determined pt/ot when able Vital Signs: Date Time Temp Pulse Resp B/P Pulse Ox O2 Delivery O2 Flow Rate FiO2 12/24/16 18:39 37.4 85 16 175/80 97 Humidified Air 2.0 12/24/16 15:01 37.8 78 16 153/81 86 Room Air 12/24/16 07:00 36.9 69 16 133/61 93 Room Air 12/23/16 23:05 Room Air 12/23/16 23:00 37.1 83 20 130/68 94 Room Air 12/23/16 20:47 89 156/60 Lab Results: Results Past 24 Hours Test 12/23/16 20:51 12/24/16 05:20 12/24/16 08:09 12/24/16 11:55 Range/Units Bedside Glucose 185 153 146 70-90 mg/dl Creatinine 0.76 0.60-1.20 mg/dl Est Creatinine Clear Calc Drug Dose 60.6 ml/min Estimated GFR () 88.3 Estimated GFR (Non- 76.2 Test 12/24/16 17:04 12/24/16 17:30 Range/Units Bedside Glucose 160 70-90 mg/dl Vancomycin Level Trough 13.8 SEE COMMENT mcg/ml
[2016-12-24 22:09] VITALS: BP 137/78; PULSE 82
[2016-12-24] MEDS: BIMATOPROST 0.01% OP SOLN 2.5 ML BTL OP SCH (22:10)
[2016-12-24] MEDS: AMITRIPTYLINE HCL 50 MG TAB PO SCH (22:11)
[2016-12-24] MEDS: ASPIRIN 81 MG ECTAB PO SCH (22:11)
[2016-12-24] MEDS: ATORVASTATIN 40 MG TAB PO SCH (22:12)
[2016-12-24 23:10] VITALS: BP 144/85; PULSE 65; TEMP 36.4; O2SAT 97
[2016-12-25] MEDS: SODIUM CHLORIDE 0.9% 1000ML 1,000 ML IV SCH ×2 (01:03→20:35)
[2016-12-25] MEDS: HYDROmorphone INJ 0.5 MG/0.5 ML SYR IV PRN ×3 (01:06→21:13)
[2016-12-25] MEDS: VANCOMYCIN INJ 1,150 MG in SODIUM CHLORIDE 0.9% 250ML 250 ML IV SCH ×2 (05:57→17:53)
[2016-12-25] MEDS: LEVOTHYROXINE 25 MCG TAB PO SCH (05:59)
[2016-12-25 07:04] LABS: BASO % 0.2 %; BASO ABS # 0.01 K/uL (0-0.2); HEMATOCRIT 27.4 % (37-47); IG% 0.3 %; LYMPH % 16.6 %; LYMPH ABS # 1.06 K/uL (1.2-3.4); MEAN CELL VOLUME 87.3 fL (80-100); MEAN CORPUSCULAR HEMOGLOBIN 28.3 pg (25-34); MEAN CORPUSCULAR HGB CONC 32.5 g/dl (32-36); MONO % 5.5 %; NEUT % 77.4 %; PLATELET COUNT 287 K/uL (130-400); RED BLOOD COUNT 3.14 M/uL (4.2-5.4); WHITE BLOOD COUNT 6.39 K/uL (4.8-10.8)
[2016-12-25 07:20] VITALS: BP 131/81; PULSE 60; TEMP 36.3; O2SAT 94
[2016-12-25 07:41] LABS: BUN/CREATININE RATIO 14.3 (10-20); CALCIUM 8.3 mg/dl (8.5-10.1); CREATININE 0.67 mg/dl (0.60-1.20); MAGNESIUM 1.9 mg/dl (1.8-2.4); POTASSIUM 3.7 mmol/L (3.5-5.1)
[2016-12-25 07:44] LABS: COMPLETE YES
[2016-12-25] MEDS: GABAPENTIN 300 MG CAP PO SCH ×3 (08:44→20:32)
[2016-12-25] MEDS: DOCUSATE SODIUM 100 MG CAP PO SCH (08:44)
[2016-12-25] MEDS: OXYBUTYNIN CHLORIDE 5 MG TAB PO SCH ×3 (08:44→20:33)
[2016-12-25] MEDS: PANTOprazole SOD 40 MG TAB PO SCH ×2 (08:45→17:37)
[2016-12-25] MEDS: DILTIAZEM HCL 180 MG CAPCR PO SCH (08:45)
[2016-12-25] MEDS: MAGNESIUM OXIDE 400 MG TAB PO SCH ×2 (08:45→20:33)
--- NOTE | 2016-12-25 08:45 | Orthopedic Progress Note ---
Orthopedic Progress Note Date of Service Dec 25, 2016. Subjective Reports: feeling well, pain controlled w PO medications, Denies: SOB, calf pain , chest pain, complaints, light headedness, nausea / vomiting Additional Notes: Patient states her left leg swelling improved, she is moving her left foot and ankle more today, no new issues. Objective calves soft nontender, N/V intact, capillary refill less than 2 sec., A&O x3, toes mobile Lt LE knee benign, mild erythema dorsal foot, + tender foot although patient states better. Able to plantarflex and dorsiflex through mid range actively. Sensation, pulses in tact. Date Time Temp Pulse Resp B/P Pulse Ox O2 Delivery O2 Flow Rate FiO2 12/25/16 07:53 Room Air 12/25/16 07:20 36.3 60 16 131/81 94 Room Air 12/24/16 23:10 36.4 65 16 144/85 97 Humidified Oxygen 2.0 12/24/16 22:09 82 137/78 12/24/16 20:10 Nasal Cannula 12/24/16 18:39 37.4 85 16 175/80 97 Humidified Air 2.0 12/24/16 18:05 38.2 85 16 156/74 92 Nasal Cannula 2.0 12/24/16 15:01 37.8 78 16 153/81 86 Room Air Laboratory Results 24 Hours: Test 12/25/16 06:40 White Blood Count 6.39 K/uL Red Blood Count 3.14 M/uL Hemoglobin 8.9 g/dL Hematocrit 27.4 % Mean Corpuscular Volume 87.3 fL Mean Corpuscular Hemoglobin 28.3 pg Mean Corpuscular Hemoglobin Concent 32.5 g/dl Platelet Count 287 K/uL Mean Platelet Volume 9.0 fL Neutrophils (%) (Auto) 77.4 % Lymphocytes (%) (Auto) 16.6 % Monocytes (%) (Auto) 5.5 % Eosinophils (%) (Auto) 0.0 % Basophils (%) (Auto) 0.2 % Neutrophils # (Auto) 4.95 K/uL Lymphocytes # (Auto) 1.06 K/uL Monocytes # (Auto) 0.35 K/uL Eosinophils # (Auto) 0.00 K/uL Basophils # (Auto) 0.01 K/uL Assessment & Plan Assessment: Left LE cellulitis improving on IV antibx. Plan: Continue non op treatment as long as improvement, no surgical indication, ortho will sign off, please re consult as needed, thank you for this consultation.
[2016-12-25] MEDS: INSULIN ASPART 100 UNITS/ML 3 ML PEN SC SCH ×4 (09:13→21:11)
--- NOTE | 2016-12-25 14:09 | Pharmacy Progress Note ---
Pharmacy Antibiotic Prog Note Date of Service Dec 25, 2016. Subjective The patient is currently receiving vancomycin 1150 mg iv q 12 hrs for recurrent cellulitis The patient is currently on day # 4 of IV therapy. Objective Height (Feet): 5 Height (Inches): 2.00 Weight (Kilograms): 77.300 Levels: Item Value Date Time Vancomycin Level Trough 13.8 mcg/ml 12/24/16 1730 Lab Results (24hrs): Laboratory Tests Test 12/25/16 06:40 BUN/Creatinine Ratio 14.3 Blood Urea Nitrogen 10 mg/dl Creatinine 0.67 mg/dl White Blood Count 6.39 K/uL Red Blood Count 3.14 M/uL Hemoglobin 8.9 g/dL Hematocrit 27.4 % Mean Corpuscular Volume 87.3 fL Mean Corpuscular Hemoglobin 28.3 pg Mean Corpuscular Hemoglobin Concent 32.5 g/dl Platelet Count 287 K/uL Mean Platelet Volume 9.0 fL Neutrophils (%) (Auto) 77.4 % Lymphocytes (%) (Auto) 16.6 % Monocytes (%) (Auto) 5.5 % Eosinophils (%) (Auto) 0.0 % Basophils (%) (Auto) 0.2 % Neutrophils # (Auto) 4.95 K/uL Lymphocytes # (Auto) 1.06 K/uL Monocytes # (Auto) 0.35 K/uL Eosinophils # (Auto) 0.00 K/uL Basophils # (Auto) 0.01 K/uL Assessment & Plan Patient on vancomycin for cellulitis of ankle. Originally on ancef and then zosyn however continued to spike temperatures. MD decide to stop abx and continue with vancomycin for now. BC are no growth. Vancomycin: * Trough level came back therapeutic at ~14 mcg/ml (goal 10-15 mcg/ml for cellulitis) * Per ortho note, patient's ankle starting to feel better * Will continue with current vancomycin regimen for now; could consider oral options in near future if patient continues to improve Pharmacy will continue to follow and will adjust dose/frequency as necessary. Thank you
--- NOTE | 2016-12-25 14:46 | Progress Note ---
Internal Med Progress Note Date of Service: Dec 25, 2016. Provider Documentation: SUBJECTIVE: pain in left ankle better today able to put some weight on it afebrile eating ok no other complaints OBJECTIVE: Vital Signs-as noted below Exam: General-Alert and oriented ENT-normal hearing Neck-no neck masses Lungs-cta b/l no wheezing or crackles Heart-s1 and s2 heard regular rate and rhythm no murmurs Abdomen-soft bowel sounds present non tender no distension Extremities-left ankle region erythematous and swollen and tender-improving Neuro-Alert and oriented moves extremities Lab data as noted below. ASSESSMENT & PLAN: Patient is a 76 y/o female who presents with SBO and hospital stay complicated by severe left ankle pain and swelling SBO currently off of NG tube tolerating low fiber diet moved bowels surgery on board and appreciate inputs stable Left ankle pain cellulitis possible gout/pseudogout? erythematous and swollen says she noticed pain after walking in hallway no dvt xrays unremarkable initially empirically started on iv Ancef arterial Doppler no acute findings had temp spike again abx changed to Zosyn and iv vancomycin MRI -diffuse soft tissue edema and small joint effusion consulted ortho for joint effusion uric acid 4.4 possibly gout/pseudogout by ortho receivbed colchicine and iv solumedrol on prednisone had temp spike again today 12/24/16- possibly drug fever( had fever on Ancef) stopping Zosyn and monitor improving will monitor HTN on atenolol and diltiazem will monitor Type 2 DM holding oral medications ISS while inpatient will monitor Hypothyroidism On levothyroxine DVT prophylaxis with SCD's DISPOSITION to be determined pt/ot when able Vital Signs: Date Time Temp Pulse Resp B/P Pulse Ox O2 Delivery O2 Flow Rate FiO2 12/25/16 07:53 Room Air 12/25/16 07:20 36.3 60 16 131/81 94 Room Air 12/24/16 23:10 36.4 65 16 144/85 97 Humidified Oxygen 2.0 12/24/16 22:09 82 137/78 12/24/16 20:10 Nasal Cannula 12/24/16 18:39 37.4 85 16 175/80 97 Humidified Air 2.0 12/24/16 18:05 38.2 85 16 156/74 92 Nasal Cannula 2.0 12/24/16 15:01 37.8 78 16 153/81 86 Room Air Lab Results: Results Past 24 Hours Test 12/24/16 17:04 12/24/16 17:30 12/24/16 20:37 12/25/16 06:40 Range/Units Bedside Glucose 160 197 70-90 mg/dl Vancomycin Level Trough 13.8 SEE COMMENT mcg/ml White Blood Count 6.39 4.8-10.8 K/uL Red Blood Count 3.14 4.2-5.4 M/uL Hemoglobin 8.9 12.0-16.0 g/dL Hematocrit 27.4 37-47 % Mean Corpuscular Volume 87.3 80-100 fL Mean Corpuscular Hemoglobin 28.3 25-34 pg Mean Corpuscular Hemoglobin Concent 32.5 32-36 g/dl Platelet Count 287 130-400 K/uL Mean Platelet Volume 9.0 7.4-10.4 fL Neutrophils (%) (Auto) 77.4 % Lymphocytes (%) (Auto) 16.6 % Monocytes (%) (Auto) 5.5 % Eosinophils (%) (Auto) 0.0 % Basophils (%) (Auto) 0.2 % Neutrophils # (Auto) 4.95 1.4-6.5 K/uL Lymphocytes # (Auto) 1.06 1.2-3.4 K/uL Monocytes # (Auto) 0.35 0.11-0.59 K/uL Eosinophils # (Auto) 0.00 0-0.5 K/uL Basophils # (Auto) 0.01 0-0.2 K/uL RDW Standard Deviation 45.5 36.4-46.3 fL RDW Coefficient of Variation 14.2 11.5-14.5 % Immature Granulocyte % (Auto) 0.3 % Immature Granulocyte # (Auto) 0.02 0.00-0.02 K/uL Erythrocyte Sedimentation Rate 57 0-21 mm/hr Sodium Level 142 136-145 mmol/L Potassium Level 3.7 3.5-5.1 mmol/L Chloride Level 106 98-107 mmol/L Carbon Dioxide Level 28 21-32 mmol/L Anion Gap 8.0 3-11 mmol/L Blood Urea Nitrogen 10 7-18 mg/dl Creatinine 0.67 0.60-1.20 mg/dl Est Creatinine Clear Calc Drug Dose 68.8 ml/min Estimated GFR () 99.0 Estimated GFR (Non- 85.4 BUN/Creatinine Ratio 14.3 10-20 Random Glucose 198 70-99 mg/dl Calcium Level 8.3 8.5-10.1 mg/dl Magnesium Level 1.9 1.8-2.4 mg/dl Test 12/25/16 08:51 12/25/16 11:38 Range/Units Bedside Glucose 205 245 70-90 mg/dl
[2016-12-25 16:00] VITALS: BP 147/72; PULSE 73; TEMP 36.9; O2SAT 92
[2016-12-25 20:30] VITALS: BP 146/78; PULSE 68
[2016-12-25] MEDS: BIMATOPROST 0.01% OP SOLN 2.5 ML BTL OP SCH (20:31)
[2016-12-25] MEDS: ASPIRIN 81 MG ECTAB PO SCH (20:33)
[2016-12-25] MEDS: AMITRIPTYLINE HCL 50 MG TAB PO SCH (20:33)
[2016-12-25] MEDS: ATORVASTATIN 40 MG TAB PO SCH (20:33)
[2016-12-25 23:04] VITALS: BP 154/68; PULSE 64; TEMP 36.6; O2SAT 94
[2016-12-26] MEDS: HYDROmorphone INJ 0.5 MG/0.5 ML SYR IV PRN (00:47)
[2016-12-26] MEDS: LEVOTHYROXINE 25 MCG TAB PO SCH (05:45)
[2016-12-26] MEDS: VANCOMYCIN INJ 1,150 MG in SODIUM CHLORIDE 0.9% 250ML 250 ML IV SCH (05:45)
[2016-12-26 05:54] LABS: HEMATOCRIT 25.8 % (37-47); IG% 0.3 %; LYMPH % 21.1 %; LYMPH ABS # 1.95 K/uL (1.2-3.4); MEAN CELL VOLUME 87.5 fL (80-100); MEAN CORPUSCULAR HEMOGLOBIN 27.5 pg (25-34); MEAN CORPUSCULAR HGB CONC 31.4 g/dl (32-36); MEAN PLATELET VOLUME 8.9 fL (7.4-10.4); MONO % 9.6 %; PLATELET COUNT 318 K/uL (130-400); RED BLOOD COUNT 2.95 M/uL (4.2-5.4); WHITE BLOOD COUNT 9.25 K/uL (4.8-10.8)
[2016-12-26 06:14] LABS: COMPLETE YES
[2016-12-26 06:29] LABS: CREATININE 0.9 mg/dl (0.60-1.20)
[2016-12-26 06:30] LABS: BUN/CREATININE RATIO 18.3 (10-20); CALCIUM 8.1 mg/dl (8.5-10.1); MAGNESIUM 1.9 mg/dl (1.8-2.4); POTASSIUM 3.8 mmol/L (3.5-5.1)
[2016-12-26 07:11] VITALS: BP 121/74; PULSE 60; TEMP 36.5; O2SAT 95
[2016-12-26] MEDS: MAGNESIUM OXIDE 400 MG TAB PO SCH (08:23)
[2016-12-26] MEDS: DILTIAZEM HCL 180 MG CAPCR PO SCH (08:24)
[2016-12-26] MEDS: INSULIN ASPART 100 UNITS/ML 3 ML PEN SC SCH ×2 (08:24→13:01)
[2016-12-26] MEDS: PANTOprazole SOD 40 MG TAB PO SCH (08:25)
[2016-12-26] MEDS: GABAPENTIN 300 MG CAP PO SCH (08:25)
[2016-12-26] MEDS: DOCUSATE SODIUM 100 MG CAP PO SCH (08:25)
[2016-12-26] MEDS: OXYBUTYNIN CHLORIDE 5 MG TAB PO SCH (08:25)
[2016-12-26 10:26] VITALS: BP 143/70; PULSE 82
[2016-12-26] MEDS ORDERED: PRED10TA PO (12:57)
[2016-12-26] MEDS ORDERED: LCTX PO (12:57)
[2016-12-26] MEDS ORDERED: LEVO-459 PO (12:57)
[2016-12-26] MEDS ORDERED: DOXY100C41 PO (12:57)
--- NOTE | 2016-12-26 13:01 | Discharge Instructions ---
Discharge Instructions Date of Service December 26, 2016. Admission Reason for Admission: Small Bowel Obstruction Discharge Discharge Diagnosis / Problem: SBO, LEFT ANKLE CELLULITIS, LEFT ANKLE GOUT/ PESUDOGOUT? Discharge Goals Goal(s): Decrease discomfort, Improve function Activity Recommendations Activity Limitations: resume your previous activity (LEFT LOWER EXTREMITY WEIGHT BEARING TOLERATED) . Instructions / Follow-Up Instructions / Follow-Up FOLLOWUP WITH FAMILY DOCTOR ON December AT 11:30AM. [facility] [id number] [facility] Current [facility] Diet Patient's current hospital diet: Diabetes Type 2 Diet, Low Fiber Diet Discharge Diet Recommended Diet: Diabetes Type 2 Diet Pending Studies Studies pending at discharge: no Medical Emergencies . Who to Call and When: Medical Emergencies: If at any time you feel your situation is an emergency, please call 911 immediately. . Non-Emergent Contact Non-Emergency issues call your: Primary Care Provider . . "Provider Documentation" section prepared by Shade King. . VTE Core Measure Inpt VTE Proph given/why not?: SCD's
[2016-12-26 13:18] VITALS: BP 143/70; PULSE 82; TEMP 36.5; O2SAT 95
--- NOTE | 2016-12-26 19:06 | Progress Note ---
Internal Med Progress Note Date of Service: December 26, 2016. Provider Documentation: SUBJECTIVE: pain in left ankle much better today able to walk afebrile eating fine ok to go home OBJECTIVE: Vital Signs-as noted below Exam: General-Alert and oriented ENT-normal hearing Neck-no neck masses Lungs-cta b/l no wheezing or crackles Heart-s1 and s2 heard regular rate and rhythm no murmurs Abdomen-soft bowel sounds present non tender no distension Extremities-left ankle region erythematous and swollen and tender-improving Neuro-Alert and oriented moves extremities Lab data as noted below. ASSESSMENT & PLAN: Patient is a 76 y/o female who presents with SBO and hospital stay complicated by severe left ankle pain and swelling SBO currently off of NG tube tolerating low fiber diet moved bowels surgery on board and appreciate inputs stable f/u with surgery Left ankle pain cellulitis possible gout/pseudogout? erythematous and swollen says she noticed pain after walking in hallway no dvt xrays unremarkable initially empirically started on iv Ancef arterial Doppler no acute findings had temp spike again abx changed to Zosyn and iv vancomycin MRI -diffuse soft tissue edema and small joint effusion consulted ortho for joint effusion uric acid 4.4 possibly gout/pseudogout by ortho received colchicine and iv solumedrol on prednisone had temp spike again today 12/24/16- possibly drug fever( had fever on Ancef) stopping Zosyn and monitor much improved discharged on po abx to complete course and prednisone taper followup with pcp. HTN on atenolol and diltiazem will monitor Type 2 DM holding oral medications ISS while inpatient d/c on home meds f/u with pcp Hypothyroidism On levothyroxine Discharged home Vital Signs: Date Time Temp Pulse Resp B/P Pulse Ox O2 Delivery O2 Flow Rate FiO2 12/26/16 13:18 36.5 82 20 95 Room Air 12/26/16 10:26 82 12/26/16 07:55 Room Air 12/26/16 07:11 36.5 60 20 121/74 95 Room Air 12/25/16 23:04 36.6 64 14 154/68 94 Room Air 12/25/16 20:30 68 146/78 12/25/16 19:30 Room Air Lab Results: Results Past 24 Hours Test 12/25/16 20:56 12/26/16 05:28 12/26/16 08:03 12/26/16 11:48 Range/Units Bedside Glucose 231 178 221 70-90 mg/dl White Blood Count 9.25 4.8-10.8 K/uL Red Blood Count 2.95 4.2-5.4 M/uL Hemoglobin 8.1 12.0-16.0 g/dL Hematocrit 25.8 37-47 % Mean Corpuscular Volume 87.5 80-100 fL Mean Corpuscular Hemoglobin 27.5 25-34 pg Mean Corpuscular Hemoglobin Concent 31.4 32-36 g/dl Platelet Count 318 130-400 K/uL Mean Platelet Volume 8.9 7.4-10.4 fL Neutrophils (%) (Auto) 69.0 % Lymphocytes (%) (Auto) 21.1 % Monocytes (%) (Auto) 9.6 % Eosinophils (%) (Auto) 0.0 % Basophils (%) (Auto) 0.0 % Neutrophils # (Auto) 6.38 1.4-6.5 K/uL Lymphocytes # (Auto) 1.95 1.2-3.4 K/uL Monocytes # (Auto) 0.89 0.11-0.59 K/uL Eosinophils # (Auto) 0.00 0-0.5 K/uL Basophils # (Auto) 0.00 0-0.2 K/uL RDW Standard Deviation 46.5 36.4-46.3 fL RDW Coefficient of Variation 14.5 11.5-14.5 % Immature Granulocyte % (Auto) 0.3 % Immature Granulocyte # (Auto) 0.03 0.00-0.02 K/uL Red Blood Cell Morphology Unremarkable Sodium Level 143 136-145 mmol/L Potassium Level 3.8 3.5-5.1 mmol/L Chloride Level 107 98-107 mmol/L Carbon Dioxide Level 30 21-32 mmol/L Anion Gap 6.0 3-11 mmol/L Blood Urea Nitrogen 16 7-18 mg/dl Creatinine 0.90 0.60-1.20 mg/dl Est Creatinine Clear Calc Drug Dose 51.2 ml/min Estimated GFR () 72.0 Estimated GFR (Non- 62.1 BUN/Creatinine Ratio 18.3 10-20 Random Glucose 195 70-99 mg/dl Calcium Level 8.1 8.5-10.1 mg/dl Magnesium Level 1.9 1.8-2.4 mg/dl
--- NOTE | 2016-12-26 19:31 | Discharge Summary ---
Discharge Summary Date of Service December 26, 2016. Discharge Summary Admission Date: Dec 19, 2016 at 08:28 Discharge Date: December 26, 2016 Discharge Disposition: Home Principal Diagnosis: SBO CELLULITIS GOUT/PSEUDOGOUT? Secondary Diagnoses/Problems: (1) Cardiomegaly Status: Chronic (2) Hypertension Status: Chronic Procedures: CT ABD/PELVIS: . Moderate grade small bowel obstruction with transition point within the right anterior abdomen. Minimal mesenteric infiltration and fluid. No free air, pneumatosis or portal venous gas. 2. Right middle lobe airspace opacity which is suggestive of pneumonia. FOOT XRAY: 1. No acute fracture or dislocation of the left foot. 2. 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 LOWER EXTREMITY US: No evidence of deep venous thrombus within the left lower extremity. ANKLE XRAY: 1. No acute fracture or dislocation of the left ankle. 2. Mild to moderate posterior and plantar calcaneal spurring. LEFT LOWER EXTREMITY ARTERIAL US: 1. Peripheral vascular disease with abnormal waveforms below the knee as above. There is no focal vessel cutoff seen throughout the arteries of the left lower extremity and there is three-vessel runoff to the foot. 2. There are elevated velocities within the dorsalis pedis artery suggesting stenosis. 3. Ankle-brachial indices as above. LEFT ANKLE MRI: 1. No bony abnormalities identified 2. No evidence of tendon tear or ligamentous disruption 3. Diffuse soft tissue edema. Small joint effusion. 4. Minimal intramuscular edema. Consultations: SURGERY ORTHOPEDICS Medication Reconciliation New Medications: Doxycycline (Monohydrate) (Monodox) 100 Mg Cap 100 MG PO BID for 7 Days, #14 CAP Lactobacillus Acidophilus (Lactinex) Tab 2 TAB PO BID for 10 Days, TAB Levofloxacin (Levaquin) 500 Mg Tab 500 MG PO DAILY for 7 Days Prednisone Tab (Prednisone) 10 Mg Tab 20 MG PO UD, #10 TAB PREDNISONE 20MG PO DAILY X 3 DAYS THEN PREDNISONE 10MG PO DAILY 3 DAYS THEN PREDNISONE 5MG PO DAILY X 2 DAYS AND STOP Continued Medications: Albuterol Sulfate (Proair Respiclick) 108 Mcg/Act Aer 2 PUFFS INH Q4 PRN for SOB/Wheezing Amitriptyline HCl (Amitriptyline HCl) 25 Mg Tab 50 MG PO HS, #180 Aspirin (Aspirin Ec) 81 Mg Tab 81 MG PO QPM Atenolol (Tenormin) 25 Mg Tab 25 MG PO QPM, 0 Refills Atorvastatin (Lipitor) 80 Mg Tab 80 MG PO QPM, 0 Refills Bimatoprost (Lumigan) 0.01 % Gladys 1 DROPS OP HS for 30 Days, #2.5 ML 3 Refills Cyanocobalamin (Vitamin B12) 1,000 Mcg Tab 1000 MCG PO QAM Diltiazem Hcl Coated Beads (Cartia Xt) 180 Mg Cap 180 MG PO QPM, #90 Docusate Sodium (Colace) 100 Mg Cap 2 CAP PO DAILY, CAP Fluticasone Propionate (Fluticasone Propionate) 120 Sprays/6000 Mcg Inha 2 SPRAYS JAQUELIN QAM, #48 Gabapentin (Gabapentin) 300 Mg Cap 300 MG PO UD 300mg in am and 600mg in pm. Glipizide (Glipizide) 5 Mg Tab 5 MG PO BID, #180 Levothyroxine Sodium (Synthroid) 25 Mcg Tab 25 MCG PO QAM Metformin Hcl (Glucophage) 1,000 Mg Tab 1000 MG PO BID, #180 Mometasone Furoate-Formoterol (Dulera 100/5 Mcg) 1 Aer Aer 1 PUFFS INH BID, GM Nitroglycerin (Nitrostat) 0.4 Mg Tab 0.4 MG UT PRN, 0 Refills NEEDED FOR CHEST PAIN : ONE TABLET UNDER THE TONGUE EVERY 5 MINUTES UP TO 3 DOSES. Omeprazole (Omeprazole) 20 Mg Tab 20 MG PO BIDM Oxybutynin Chloride (Oxybutynin Chloride) 5 Mg Tab 5 MG PO TID Tramadol (Ultram) 50 Mg Tab 50 MG PO Q6H PRN for Pain, TAB Admission Information HPI (per Admitting provider): Patient is a 76 y/o female with a h/o HTN and SBO who presents for evaluation of abdominal pain and vomiting. Symptoms have been ongoing for the past couple of days and feel similar to previous SBO. Patient did not take any of her usual medications over the weekend as she did not feel that she would be able to keep them down. In the ED, vitals were stable. CT a/p showed SBO and RML airspace opacity. General surgery evaluated the patient and placed an NGT. Physical Exam (per Admitting): General Appearance: WD/WN, no apparent distress Head: normocephalic Eyes: normal inspection ENT: normal ENT inspection Neck: supple, no JVD Respiratory/Chest: chest non-tender, lungs clear Cardiovascular: regular rate, rhythm, no edema, no gallop, no JVD Abdomen/GI: normal bowel sounds, non tender, soft, no organomegaly Extremities/Musculoskelatal: normal inspection, no calf tenderness, normal capillary refill Neurologic/Psych: no motor/sensory deficits, alert, normal mood/affect Skin: normal color, warm/dry, no rash Physical Exam (per Admitting): General- awake; alert; NAD Eyes- EOMI; no scleral icterus ENT- +dentures Neck- no stridor; trachea midline Lungs- CTA bilaterally; no wheezes/crackles Heart- RRR Abdomen- soft; mildly diffusely tender to palpation; nBS Back- no gross abnormalities Extremities- no c/c/e; no deformity Neuro- no focal deficits Skin- no appreciable rash . Hospital Course Patient is a 76 y/o female who presents with SBO and hospital stay complicated by severe left ankle pain and swelling SBO currently off of NG tube tolerating low fiber diet moved bowels surgery on board and appreciate inputs stable f/u with surgery Left ankle pain cellulitis possible gout/pseudogout? erythematous and swollen says she noticed pain after walking in hallway no dvt xrays unremarkable initially empirically started on iv Ancef arterial Doppler no acute findings had temp spike again abx changed to Zosyn and iv vancomycin MRI -diffuse soft tissue edema and small joint effusion consulted ortho for joint effusion uric acid 4.4 possibly gout/pseudogout by ortho received colchicine and iv solumedrol on prednisone had temp spike again today 12/24/16- possibly drug fever( had fever on Ancef) stopping Zosyn and monitor much improved discharged on po abx to complete course and prednisone taper followup with pcp. HTN on atenolol and diltiazem will monitor Type 2 DM holding oral medications ISS while inpatient d/c on home meds f/u with pcp Hypothyroidism On levothyroxine Discharged home Total time spent on discharge = 35MINUTES This includes examination of the patient, discharge planning, medication reconciliation, and communication with other providers. Discharge Instructions Please take this sheet to every appointment for the next month Discharge Instructions Date of Service December 26, 2016. Admission Reason for Admission: Small Bowel Obstruction Discharge Discharge Diagnosis / Problem: SBO, LEFT ANKLE CELLULITIS, LEFT ANKLE GOUT/ PESUDOGOUT? Discharge Goals Goal(s): Decrease discomfort, Improve function Activity Recommendations Activity Limitations: resume your previous activity (LEFT LOWER EXTREMITY WEIGHT BEARING TOLERATED) . Instructions / Follow-Up Instructions / Follow-Up FOLLOWUP WITH FAMILY DOCTOR ON December AT 11:30AM. FOLLOWUP WITH SURGERY IN ONE WEEK([address], [place] [address] ) Current Hospital Diet Patient's current hospital diet: Diabetes Type 2 Diet, Low Fiber Diet Discharge Diet Recommended Diet: Diabetes Type 2 Diet Pending Studies Studies pending at discharge: no Medical Emergencies . Who to Call and When: Medical Emergencies: If at any time you feel your situation is an emergency, please call 911 immediately. . Non-Emergent Contact Non-Emergency issues call your: Primary Care Provider . . "Provider Documentation" section prepared by Shade King. . VTE Core Measure Inpt VTE Proph given/why not?: SCD's
[2017-04-20] MEDS ORDERED: CYAN100T PO (07:42)
[2017-06-27] MEDS ORDERED: BIMA0.01 OP (13:30)
[2017-06-27] MEDS ORDERED: ATOR-26 PO (13:30)
[2017-06-27] MEDS ORDERED: DIPH1TAB87 (13:30)
[2017-06-27] MEDS ORDERED: ACET-1256 PO (13:30)
[2017-06-27] MEDS ORDERED: TRAM-10 PO (13:30)
[2017-06-27] MEDS ORDERED: ISOS60TA25 PO (13:30)
== END 2016-12-26 13:46 | disposition home or self-care (01) | DRG 389 ==
LOC: ENRESERVDT → ENRESERVTM → C.EDB 04:33 → C.MSW 08:28
PROVIDERS: ADMIT Internal Medicine; ATTEND Internal Medicine
DX: K56.60 Unspecified intestinal obstruction (principal); L03.116 Cellulitis of left lower limb; I10 Essential (primary) hypertension; E11.9 Type 2 diabetes mellitus without complications; H91.90 Unspecified hearing loss, unspecified ear; H40.9 Unspecified glaucoma; E03.9 Hypothyroidism, unspecified; M10.9 Gout, unspecified; Z88.8 Allergy status to other drugs, medicaments and biological substances; Z79.82 Long term (current) use of aspirin; Z79.899 Other long term (current) drug therapy; Z79.84 Long term (current) use of oral hypoglycemic drugs; Z83.3 Family history of diabetes mellitus; Z82.49 Family history of ischemic heart disease and other diseases of the circulatory system; K59.00 Constipation, unspecified

== ENCOUNTER → 2017-04-20 | Day surgery (SDC) | payer OTHER ==
[~2017-04-20] VITALS: Ht 160 cm; Wt 79.5 kg
[~2017-04-20] MED LIST changes: -ACET-1487 PO; +ACETAMINOPHEN 325 MG TAB PO PRN; +ATROPINE SULFATE 0.1 MG/ML 5ML SYR IV PRN; +CLOP1TAB15 PO; +CYAN100T PO; +DIAZEPAM 5MG TAB ONE; +DOCU-94 PO; +FENTANYL CITRATE INJ 50 MCG/1 ML 2 ML VIAL ONE; -FERRTAB18 PO; +HEPARIN SOD (PORCINE) 1000 UNIT/ML 10 ML VIAL ONE; -HYDR-3419 PO; +LEVO-459 PO; +MIDAZOLAM HCL 1 MG/ML 2ML VIAL ONE; +MISCCAP80 PO; +MOME100A INH; +NITROGLYCERIN 0.4 MG SL PER TAB CHARGE SL PRN; +NITROGLYCERIN/D5W 100MCG/ML 20ML SYR ONE; +NRN/300 PO; +NiCARDipine HCL INJ 2.5 MG/ML 10 ML AMP ONE; -OXGN; +PRED10TA PO; +SODIUM CHLORIDE 0.9% 1000ML 1,000 ML IV SCH; +SODIUM CHLORIDE 0.9% 1000ML 250 ML IV PRN
[2017-04-20 08:24] VITALS: BP 137/53; PULSE 66; TEMP 36.6; O2SAT 96; Ht 160 cm; Wt 79.5 kg
--- NOTE | 2017-04-20 10:57 | History & Physical Bridge Note ---
H&P Re-Evaluation Bridge Note: I have examined the patient, reviewed the History & Physical and in the interval since the performance of the History & Physical I have noted the following changes of clinical significance: No changes noted
[2017-04-20 11:59] LABS: ISTAT ARTERIAL BLOOD GAS HCO3 29 meq/L (19-24); ISTAT ARTERIAL BLOOD GAS PCO2 55 mmHg (35-46); ISTAT ARTERIAL BLOOD GAS PO2 39 mmHg (80-95); ISTAT ARTERIAL BLOOD GAS pH 7.34 (7.35-7.45); ISTAT CARBON DIOXIDE 31 mEq/l (24-31)
--- NOTE | 2017-04-20 12:19 | [facility] Post Operative Brief Note ---
Preliminary Procedure Note Procedure Date Apr 20, 2017. Pre-Procedure Diagnosis Valvular Disease AUC Score 7 Post-Procedure Diagnosis Severe CAD Procedure(s) Performed Coronary Angiography, Right Heart Cath [facility] Dr. Meng Arredondo Plug Assembler(s) Halima Rand Estimated Blood Loss <20 cc Medication(s) Lidocaine 1% (local infiltration) Preliminary Findings Right dominant coronary anatomy Two vessel obstructive coronary artery disease LAD 80% eccentric proximal, RCA 60% at crux with 60% proximal PDA Heavy aortic valve and mitral valve calcification on fluoroscopy Minimal elevation of right heart pressures PA 34/11 mean 21, PCWP 14 Recommendations CABG, valve replacement Specimens None Fluids (cc crystalloids) 120 Anesthesia Start 11:02 End 11:44 Versed 1mg IV, Fentanyl 12.5 mcg IV Procedural Complication(s) None Disposition Apprentice Funeral Director Holding/Recovery
[2017-04-20 13:56] LABS: ISTAT ARTERIAL BLOOD GAS HCO3 30 meq/L (19-24); ISTAT ARTERIAL BLOOD GAS PCO2 50 mmHg (35-46); ISTAT ARTERIAL BLOOD GAS PO2 182 mmHg (80-95); ISTAT ARTERIAL BLOOD GAS pH 7.38 (7.35-7.45); ISTAT CARBON DIOXIDE 31 mEq/l (24-31)
[2017-04-20 13:56] LABS: ISTAT ARTERIAL BLOOD GAS HCO3 29 meq/L (19-24); ISTAT ARTERIAL BLOOD GAS PCO2 54 mmHg (35-46); ISTAT ARTERIAL BLOOD GAS PO2 36 mmHg (80-95); ISTAT ARTERIAL BLOOD GAS pH 7.33 (7.35-7.45); ISTAT CARBON DIOXIDE 30 mEq/l (24-31)
--- NOTE | 2017-04-20 14:25 | Discharge Instructions ---
Discharge Instructions Procedure Procedure Date: Apr 20, 2017. Reason for Visit: Severe Aortic Stenosis *Dr Arredondo Doing*. Discharge Discharge Date: Apr 20, 2017. Discharge Diagnosis: Severe Aortic stenosis Last Recorded Wt (Kilograms): 79.5 Anesthesia Post Anesthesia Instructions: If you have had General Anesthesia or IV Sedation: * Do not drive today. * Resume driving when surgeon permits. * Do not make important decisions or sign legal documents today. * Call surgeon for: 1. Temperature elevations greater than 101 degrees F. 2. Uncontrollable pain. 3. Excessive bleeding. 4. Persistent nausea and vomiting. 5. Medication intolerance (nausea, vomiting or rash). * For nausea and vomiting use only clear liquids such as: tea, soda, bouillon until nausea subsides, then gradually increase diet as tolerated. * If you have any concerns or questions, call your surgeon's office. If physician is unavailable and it is an emergency, call 911 or go to the nearest emergency room. Instructions Activity Recommendations: limitations as noted below Recommended Home Diet: resume previous diet Allergies: Coded Allergies: Carbamazepine (Verified Allergy, Unknown, RASH, 12/18/16) Oxaprozin (Verified Allergy, Unknown, RASH/HIVES, 12/18/16) Valproic Acid (Verified Allergy, Unknown, HEAD-TOE RASH, 12/18/16) Prednisone (Verified Adverse Reaction, Unknown, ELEVATION OF SUGARS, ) PATIENT HAS GLAUCOMA BOTH EYES - UNABLE TO TAKE PREDNISONE Provider Instructions ACTIVITY RECOMMENDATIONS: Excess manipulation of the wrist should be avoided for the next 24-48 hours. * No lifting over 2 pounds (approximately a 1/2 gallon of milk) with the utilized arm for 24 hours. * No strenuous activity such as bowling or tennis for 3 days. * Keep the site of the procedure covered with a bandage for 24 hours. *You may shower the day after the procedure. Do not take a tub bath or submerge the puncture site in water for the next 3 days. *Do not operate any motorized equipment for 3 days. SPECIAL CARE INSTRUCTIONS: The site may be slightly bruised and sore following your procedure. Should any of the following occur, contact the DrOmar who performed your procedure. 1. Redness/inflammation, swelling, chills, or fever, or colored drainage at procedure site within 3-7 days after your procedure. 2. Coldness, discoloration, ongoing numbness, severe pain, or swelling. Expect mild tingling of hand and tenderness at the puncture site for up to three days. If this persists beyond three days, or other symptoms develop, notify the Dr. who performed your procedure. BLEEDING: If the procedure site on your wrist begins to bleed, do not panic 1. Place 1 or 2 fingers firmly just slightly above the insertion site to stop the bleeding. You may be able to feel your pulse as you hold pressure. 2. Lift your finger after 5 minutes to see if the bleeding has stopped. 3. Once the bleeding has stopped, gently wipe the wrist area clean with a bandage. * If the bleeding from your wrist does not stop after 10 minutes, or if there is a large amount of bleeding or spurting, call 911 (do not drive yourself to the hospital). SKIN IRRITATION: * You may experience some redness and/or swelling in the area where radiation was administered. If any skin irritation occurs, please contact your family physician. FOLLOW UP VISIT: Keep any scheduled doctor appointments. Follow Up Additional Instructions: Restart metformin on Monday Follow-up with: Dr Hernandez as scheduled Boby Chance Recommendations: Call your doctor if: * Temperature above 101 degrees * Pain not relieved by pain medicine ordered * There is increased drainage or redness from any incision * You have any unanswered questions or concerns. Your Doctors Instructions noted above were prepared by provider Meng Arredondo. Patient Signature Section: Patient Instructions Signature Page Yael Montgomery Patient (or Guardian) Signature/Date: I have read and understand the instructions given to me by my caregivers. Caregiver/RN/Doctor Signature/Date: The above-named patient and/or guardian has received patient instructions on this date. + Original Patient Signature Page (only) stays with chart. Please make copy for patient.
[2017-04-20 16:00] VITALS: BP 148/62; PULSE 60; O2SAT 100
--- NOTE | 2017-04-20 17:59 | CARDIAC CATH REPORT ---
REFERRING: Thaddeus Cole. PRIMARY CARE PHYSICIAN: Dr. Brandon. INDICATIONS: Exertional dyspnea and chest discomfort, calcific aortic stenosis on echocardiography. BRIEF CARDIAC HISTORY: The patient is a 77-year-old female with prior history of coronary interventions of the right coronary artery in the remote past and has recently been experiencing symptoms of worsening chest pressure and exertional dyspnea. Echocardiography and evaluation of valvular disease demonstrating progressively severe aortic stenosis severe. She is referred for diagnostic cardiac catheterization. PROCEDURE: Right heart catheterization, coronary angiography. ACCESS: Right femoral artery, right femoral vein. CATHETERS: A 5-[place] arterial sheath, 5-[place] JL4, 5-[place] 3DRC, 5-[place] straight pigtail. VENOUS ACCESS: A 7-[place] venous sheaths and a 7-[place] tip Spencer-Claudia catheter. CONTRAST: Nonionic x81 mL. FLUIDS: 120 mL normal saline. SEDATION: Start time 11:02 and end time 11:42. FORENSICS ANALYST NURSE: Janis Fabian SEDATION ADMINISTERED: Versed 1 mg IV, fentanyl 12.5 mcg IV. RADIATION EXPOSURE 8.9 minutes of fluoroscopy, 110 milligrays, DAP score [id number]. COMPLICATIONS: None appreciated. PROCEDURAL NOTES: Attempts were made to cross the aortic valve, though was not performed successfully, has had adequate information was performed via echocardiogram and via right heart catheterization regarding pulmonary pressures. This case was not pursued with limitations of impending emergency needs for lab. RESULTS: CORONARY ANGIOGRAPHY: Note coronary anatomy is right dominant. LEFT MAIN: The left main is long and mildly calcified and bifurcates to give rise to left anterior descending and left circumflex coronary artery disease, there is no disease in the left main. LEFT ANTERIOR DESCENDING: Left anterior descending is type 3 distribution. There is a small diagonal branch which arises at the end of its proximal third and an additional diagonal branch in its mid portion. Within the left anterior descending, there is a 75% narrowing at the very proximal segment. The distal vessels of a modest caliber. LEFT CIRCUMFLEX: Left circumflex gives rise to a small posterolateral branch and moderate bifurcating obtuse marginal. There are moderate irregularities in the left circumflex. RIGHT CORONARY ARTERY: The right coronary is large and dominant in distribution and gives rise to sinoatrial branch shortly after its origin, a right ventricular branch in its mid portion. At the AV groove a long posterior descending artery along the AV groove, there are 2 posterolateral branches. Within the right coronary artery, there is a long area of previous stent, which is patent in its mid portion. The right coronary artery, there is at most 30% in-stent restenosis. The right coronary artery at the AV groove has a 60% narrowing prior to its bifurcation with disease extending into the origin of the posterior descending artery narrowing it by 60%. LEFT VENTRICULAR ANGIOGRAPHY: Not performed. FLUOROSCOPY: There was heavy calcification of both the aortic and mitral valves. HEMODYNAMICS: Initial aortic root pressure was 168/86. Final aortic root pressure was 164/75. Right heart pressures, mean right atrial pressure was 6, V wave of 9, RV pressure was 32/6. Pulmonary capillary wedge pressure was 32/34/11 with a mean of 21. Pulmonary capillary wedge pressure was a mean of 14 with a V wave of 18. FINAL IMPRESSIONS: 1. Severe calcific aortic stenosis by echocardiography. 2. Heavy calcification of the aortic valve as well as the mitral valve annulus on fluoroscopy. 3. Two-vessel obstructive coronary artery disease with a long 75-80% narrowing in the proximal left anterior descending, 60% narrowing in the distal right coronary artery at its bifurcation extending into the origin of the posterior descending artery. 4. Patent stents in the mid right coronary artery. 5. No significant elevation in right heart pressures to suggest mitral stenosis or pulmonary hypertension. RECOMMENDATIONS: The patient will continue to pursue surgical evaluation of aortic valve disease with considerations of coronary revascularization in the same setting. No adjustments made in medical therapies. MTDD
== END | disposition home or self-care (01) ==
LOC: C.CATH 07:56
PROVIDERS: ATTEND Physician Assistant
DX: I25.10 Atherosclerotic heart disease of native coronary artery without angina pectoris (principal); I35.0 Nonrheumatic aortic (valve) stenosis; J44.9 Chronic obstructive pulmonary disease, unspecified; I10 Essential (primary) hypertension; E78.5 Hyperlipidemia, unspecified; E11.40 Type 2 diabetes mellitus with diabetic neuropathy, unspecified; K21.9 Gastro-esophageal reflux disease without esophagitis; E03.9 Hypothyroidism, unspecified; F32.9 Major depressive disorder, single episode, unspecified; Z79.899 Other long term (current) drug therapy; Z83.3 Family history of diabetes mellitus; Z82.49 Family history of ischemic heart disease and other diseases of the circulatory system; Z79.84 Long term (current) use of oral hypoglycemic drugs

== ENCOUNTER 2017-06-04 14:44 | Inpatient (IN) | payer OTHER ==
[~2017-06-04] VITALS: Ht 160 cm; Wt 80.0 kg
[~2017-06-04 14:44] MED LIST changes: -ACETAMINOPHEN 325 MG TAB PO PRN; -ALBU18002 INH; -ATROPINE SULFATE 0.1 MG/ML 5ML SYR IV PRN; -CLOP1TAB15 PO; -DIAZEPAM 5MG TAB ONE; -FENTANYL CITRATE INJ 50 MCG/1 ML 2 ML VIAL ONE; -HEPARIN SOD (PORCINE) 1000 UNIT/ML 10 ML VIAL ONE; -LEVO-459 PO; -MIDAZOLAM HCL 1 MG/ML 2ML VIAL ONE; -MISCCAP80 PO; -MOME100A INH; -NITROGLYCERIN 0.4 MG SL PER TAB CHARGE SL PRN; -NITROGLYCERIN/D5W 100MCG/ML 20ML SYR ONE; -NRN/300 PO; -NiCARDipine HCL INJ 2.5 MG/ML 10 ML AMP ONE; -PRED10TA PO; -SODIUM CHLORIDE 0.9% 1000ML 1,000 ML IV SCH; -SODIUM CHLORIDE 0.9% 1000ML 250 ML IV PRN
[2017-06-04] MEDS ORDERED: MoRPHine SULFATE 4 MG/ML 1 ML CARP\\VIAL IV STA (16:09)
[2017-06-04] MEDS ORDERED: ONDANSETRON INJ 2 MG/ML 2 ML VIAL IV STA (16:09)
[2017-06-04] MEDS ORDERED: CLOP1TAB15 PO (16:29)
[2017-06-04] MEDS ORDERED: MISCCAP80 PO (16:29)
[2017-06-04] MEDS ORDERED: NRN/300 PO (16:29)
[2017-06-04 17:02] LABS: BASO % 0.1 %; BASO ABS # 0.01 K/uL (0-0.2); COMPLETE YES; HEMATOCRIT 35.5 % (37-47); IG% 0.3 %; LYMPH % 11.5 %; LYMPH ABS # 1.25 K/uL (1.2-3.4); MEAN CORPUSCULAR HEMOGLOBIN 26.8 pg (25-34); MEAN CORPUSCULAR HGB CONC 32.7 g/dl (32-36); MEAN PLATELET VOLUME 8.9 fL (7.4-10.4); MONO % 7.4 %; NEUT % 80.7 %; PLATELET COUNT 319 K/uL (130-400); RED BLOOD COUNT 4.33 M/uL (4.2-5.4); WHITE BLOOD COUNT 10.88 K/uL (4.8-10.8)
[2017-06-04 17:10] LABS: BUN/CREATININE RATIO 21.1 (10-20); CALCIUM 9.7 mg/dl (8.5-10.1); CREATININE 0.94 mg/dl (0.60-1.20); POTASSIUM 4.3 mmol/L (3.5-5.1)
--- NOTE | 2017-06-04 18:19 | DIAGNOSTIC IMAGING REPORT ---
ABDOMEN 2VIEW W/PA CHEST RTN CLINICAL HISTORY: 77 years-old Female presenting with eval for obstruction, vomiting, abdominal pain. TECHNIQUE: PA view of the chest and supine and upright views of the abdomen were obtained. COMPARISON: 12/22/2016. FINDINGS: Atherosclerosis of aortic arch. Cardiac silhouette is enlarged. Linear opacity in the left lung base persists, likely scarring. No new focal infiltrate. No pleural effusion or pneumothorax. No bowel obstruction. No gross pneumoperitoneum. No calcifications project over the renal shadows. Degenerative changes of the spine. Posterior lumbar fusion hardware with interbody spacers noted. Screw fixation across the left sacroiliac joint also noted. Total left hip arthroplasty. IMPRESSION: 1. No acute cardiopulmonary disease. 2. No radiographic evidence of acute intra-abdominal pathology. No evidence of bowel obstruction. Electronically signed by: Alfredo Sanders M.D. 06/04/2017 6:17 PM Dictated Date/Time: 06/04/2017 6:13 PM
--- NOTE | 2017-06-04 19:09 | DIAGNOSTIC IMAGING REPORT ---
ABD/PELVIS NO IV OR ORAL CONT CLINICAL HISTORY: 77 years-old Female presenting with eval for obstruction. TECHNIQUE: Multidetector CT of the abdomen and pelvis was performed without the use of intravenous contrast. IV contrast: None. A dose lowering technique was used consistent with the principles of ALARA (as low as reasonably achievable). COMPARISON: 12/19/2016. CT DOSE (mGy.cm): The estimated cumulative dose is 606.01 mGy.cm. 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 3 screw fixation of the left sacroiliac joint. Total left hip arthroplasty. Lung bases: Minimal dependent changes likely atelectasis. Mild multichamber enlargement of the heart with mitral annular, aortic valve, and coronary artery calcification. No pericardial or pleural effusion. Liver: Normal morphology. Normal density. Biliary: No gross biliary ductal dilatation allowing for noncontrast technique. Normal gallbladder. Pancreas: Moderate parenchymal atrophy. Spleen: Normal noncontrast appearance. Adrenal glands: Normal noncontrast appearance. Kidneys and ureters: Normal noncontrast appearance. No hydronephrosis. Bladder: Incompletely evaluated secondary to underdistention. Pelvic organs: Uterus surgically absent. No adnexal masses. Bowel: Diverticulosis of the sigmoid colon with suggestion of wall thickening, likely indicating chronic diverticular disease. Dilated proximal small bowel with small bowel feces sign in the right anterior mid abdomen, where there is a focal point of transition (series 2 image 48). No bowel wall thickening or pneumatosis. Peritoneal cavity: No free fluid or intraperitoneal gas. Lymph nodes: No enlarged lymph nodes in the abdomen or pelvis. Vasculature: Atherosclerosis of the normal caliber abdominal aorta. Abdominal wall: Midline surgical incision scar. No associated fluid. Minimal infiltration of the right anterior abdominal wall likely indicates medication injection. Musculoskeletal: Total left hip arthroplasty partially visualized. 3 screw fixation across the left sacroiliac joints. Posterior lumbar fusion hardware with interbody spacers laminectomy defects. Overlying surgical incision site in the posterior soft tissues. No associated fluid collection. Degenerative change at the thoracolumbar junction. Osteopenia. IMPRESSION: 1. Findings consistent with high-grade partial or complete small bowel obstruction at the right anterior mid abdomen with small bowel feces immediately upstream. No bowel wall thickening or pneumatosis. The lack of intravenous contrast somewhat limits assessment of bowel. Electronically signed by: Alfredo Sanders M.D. 06/04/2017 7:07 PM Dictated Date/Time: 06/04/2017 7:01 PM
[2017-06-04] MEDS ORDERED: MoRPHine SULFATE 2 MG/ML CARP IV STA (19:25)
[2017-06-04] MEDS ORDERED: ONDANSETRON INJ 2 MG/ML 2 ML VIAL ONE (19:50)
[2017-06-04 21:32] VITALS: BP 167/80; PULSE 96; TEMP 36.6; O2SAT 92
[2017-06-04 21:34] VITALS: BP 167/80; PULSE 96; TEMP 36.6; O2SAT 93; BMI 31.2
--- NOTE | 2017-06-04 21:43 | Surgery Consultation ---
Consultation Date of Consultation: Jun 04, 2017. Attending Physician: History of Present Illness Yael Montgomery is a 77 year old woman with HTN, DM, carotid stenosis s/p bilateral CEAs, history of multiple abdominal surgeries who presents with signs and symptoms concerning for a small bowel obstruction. Patient states she had dinner last night and was feeling her usual self, but after dinner developed abdominal bloating and distention. Continues to have pain overnight, and today began having nausea and vomiting. She was hospitalized for a small bowel obstruction in November of this year, managed non operatively; she states her current symptoms feel the same as that episode. Pain is described as worse in the midline epigastric region. In the ED tonight, an NGT was placed with approximately 1200ml of yellow / thick fluid drained; after placement, she states she feels less nauseated and distended. Last BM was yesterday morning - reported to be normal / solid / formed. States she takes 2 stool softeners every day to keep her bowels moving. Denies hematochezia / melena. Continues to pass gas, even upon presentation to the ED. Two weeks ago, she had a cardiac stent placed ([facility] in [place]). Denies fever, chills, headaches, dizziness, vision changes, chest pain, SOB, cough, appetite or weight changes, dysuria or urinary symptoms, pain / numbness / swelling / tingling in extremities. She has a history of open appendectomy (as a teenager), and an open hysterectomy (many years ago). In 2012 she had a bowel obstruction following a knee surgery; Dr. Jose completed an exploratory laparotomy with lysis of adhesions. She did not have any issues with obstructions after that until November 2016, when she was admitted with an SBO (managed non operatively). Past Medical/Surgical History Medical History: (1) Cardiomegaly (2) Carotid stenosis (3) Diabetes (4) Hypertension (5) Sacral back pain Surgical History: (1) Open appendectomy (lower midline incision) (2) Total hysterectomy (lower midline incision) (3) Exploratory laparotomy with lysis of adhesions (Dr. Jose, 2012) (4) Bilateral carotid endarterectomies (Dr. Jose) (5) Cardiac stent placement ([facility], April 2017) Family History Diabetes mellitus FH: heart disease Social History Smoking Status: Never Smoker Drug Use: none Marital Status: Housing Status: lives with family Allergies Coded Allergies: Carbamazepine (Verified Allergy, Unknown, RASH, 06/04/17) Oxaprozin (Verified Allergy, Unknown, RASH/HIVES, 06/04/17) Valproic Acid (Verified Allergy, Unknown, HEAD-TOE RASH, 06/04/17) Prednisone (Verified Adverse Reaction, Unknown, ELEVATION OF SUGARS, ) PATIENT HAS GLAUCOMA BOTH EYES - UNABLE TO TAKE PREDNISONE Home Medications Scheduled Amitriptyline HCl (Amitriptyline HCl), 50 MG PO HS Aspirin (Aspirin Ec), 81 MG PO QPM Atenolol (Tenormin), 25 MG PO QPM Atorvastatin (Lipitor), 80 MG PO QPM Bimatoprost (Lumigan), 1 DROPS OP HS Clopidogrel (Plavix), 75 MG PO QAM Diltiazem Hcl Coated Beads (Cartia Xt), 180 MG PO QPM Docusate Sodium (Colace), 2 CAP PO DAILY Fluticasone Propionate (Fluticasone Propionate), 2 SPRAYS JAQUELIN QAM Gabapentin (Gabapentin), 300 MG PO QAM Gabapentin (Neurontin), 300 MG PO QPM Glipizide (Glipizide), 5 MG PO BID Levothyroxine Sodium (Synthroid), 25 MCG PO QAM Metformin Hcl (Glucophage), 1,000 MG PO BID Nitroglycerin (Nitrostat), 0.4 MG UT PRN Omeprazole (Omeprazole), 20 MG PO BIDM Oxybutynin Chloride (Oxybutynin Chloride), 5 MG PO TID Probiotic Product (Probiotic), 1 CAP PO QAM Scheduled PRN Tramadol (Ultram), 50 MG PO Q6H PRN for Pain Review of Systems Constitutional: No fever, No chills, No sweats Eyes: No worsening of vision Respiratory: No cough, No sputum, No wheezing, No shortness of breath, No dyspnea on exertion Cardiovascular: No chest pain, No edema Abdomen: + pain, + nausea, + vomiting, No diarrhea, No constipation, No GI bleeding Genitourinary - Female: No dysuria, No urinary frequency, No urinary urgency, No urinary incontinence, No urinary retention Integumentary: No rash Physical Exam Date Time Temp Pulse Resp B/P (MAP) Pulse Ox O2 Delivery O2 Flow Rate FiO2 06/04/17 20:25 93 20 138/70 95 Room Air 2.0 06/04/17 18:26 90 147/108 99 Room Air 06/04/17 16:51 94 Nasal Cannula 3.0 06/04/17 16:49 96 165/97 89 Room Air 06/04/17 14:47 36.8 98 20 135/68 94 Room Air General Appearance: WD/WN, no apparent distress Head: normocephalic Eyes: normal inspection ENT: + pertinent finding (NGT in place with yellowish / green drainage) Neck: supple Respiratory/Chest: lungs clear, normal breath sounds, no respiratory distress Cardiovascular: regular rate, rhythm, no edema Abdomen/GI: soft (no rebound / guarding), + tenderness (moderately tender to palpation, mostly in midline epigastric area), + distended, + pertinent finding (well healed midline incision, no palpable hernias) Neurologic/Psych: alert, normal mood/affect, oriented x 3 Skin: normal color, warm/dry Laboratory Results Last 24 Hours Test 06/04/17 16:40 06/04/17 20:29 White Blood Count 10.88 K/uL Red Blood Count 4.33 M/uL Hemoglobin 11.6 g/dL Hematocrit 35.5 % Mean Corpuscular Volume 82.0 fL Mean Corpuscular Hemoglobin 26.8 pg Mean Corpuscular Hemoglobin Concent 32.7 g/dl Platelet Count 319 K/uL Mean Platelet Volume 8.9 fL Neutrophils (%) (Auto) 80.7 % Lymphocytes (%) (Auto) 11.5 % Monocytes (%) (Auto) 7.4 % Eosinophils (%) (Auto) 0.0 % Basophils (%) (Auto) 0.1 % Neutrophils # (Auto) 8.78 K/uL Lymphocytes # (Auto) 1.25 K/uL Monocytes # (Auto) 0.81 K/uL Eosinophils # (Auto) 0.00 K/uL Basophils # (Auto) 0.01 K/uL RDW Standard Deviation 43.5 fL RDW Coefficient of Variation 14.5 % Immature Granulocyte % (Auto) 0.3 % Immature Granulocyte # (Auto) 0.03 K/uL Sodium Level 138 mmol/L Potassium Level 4.3 mmol/L Chloride Level 101 mmol/L Carbon Dioxide Level 30 mmol/L Anion Gap 7.0 mmol/L Blood Urea Nitrogen 20 mg/dl Creatinine 0.94 mg/dl Est Creatinine Clear Calc Drug Dose 50.2 ml/min Estimated GFR () 67.8 Estimated GFR (Non- 58.5 BUN/Creatinine Ratio 21.1 Random Glucose 179 mg/dl Calcium Level 9.7 mg/dl Total Bilirubin 0.4 mg/dl Direct Bilirubin 0.1 mg/dl Aspartate Amino Transf (AST/SGOT) 19 U/L Alanine Aminotransferase (ALT/SGPT) 20 U/L Alkaline Phosphatase 80 U/L Total Protein 7.8 gm/dl Albumin 4.0 gm/dl Lipase 79 U/L 06/04/17 CXR: IMPRESSION: 1. No acute cardiopulmonary disease. 2. No radiographic evidence of acute intra-abdominal pathology. No evidence of bowel obstruction. 06/04/17 CT Abd / Pelvis (no contrast): IMPRESSION: 1. Findings consistent with high-grade partial or complete small bowel obstruction at the right anterior mid abdomen with small bowel feces immediately upstream. No bowel wall thickening or pneumatosis. The lack of intravenous contrast somewhat limits assessment of bowel. Assessment & Plan Yael Montgomery is a 77 year old woman with multiple previous abdominal surgeries and previous episode of SBO (managed non operatively) who presents to the ED with symptoms and CT imaging consistent with a SBO. She is afebrile, hemodynamically stable and normal. She has a mild leukocytosis to 10.9 - otherwise labs within normal limits. She had a normal BM yesterday, and has continued to pass gas. Abdomen is distended, but soft, mildly tender to palpation, no rebound or guarding. She had relief of some distention and nausea with placement of the NGT, which is currently working well. -No acute surgical intervention indicated at this time -NPO, NGT decompression for bowel rest and non operative management of bowel obstruction -IVF hydration, replete electrolytes as needed -Pain and nausea control as needed -Trend labs -Rest of care per primary team -Will continue to follow Silvia Ramirez MD 06/04/17
[2017-06-04] MEDS ORDERED: ONDANSETRON INJ 2 MG/ML 2 ML VIAL IV PRN (22:30)
[2017-06-04 22:42] LABS: INR 1.1 (0.9-1.1); PROTHROMBIN TIME (PATIENT) 11.6 SECONDS (9.0-12.0)
--- NOTE | 2017-06-04 23:02 | EMERGENCY ROOM VISIT NOTE ---
History Report prepared by Michaela: Christin Fitzgerald Under the Supervision of: Dr. Bernard Martinez M.D. First contact with patient: 16:02 Chief Complaint: VOMITING Stated Complaint: VOMITING, (BLOCKAGE) History of Present Illness The patient is a 77 year old female who presents to the Emergency Room with complaints of intermittent vomiting starting last night. The patient notes that she had an obstructed bowel in November of this year. She states that she had it operated on in 2012. She states that last night the abdominal pain started in her upper abdomen. She reports that it then started to radiate down into her lower abdomen and is the worst in her right lower abdomen. She notes that two weeks ago she had a black and blue panchito in the same spot and that is where the pain is the worst. The patient reports that it had gone away, but noticed it was back this morning. She states that she is Diabetic, but denies giving herself Insulin. The patient denies fever and diarrhea. She notes that she had a good bowel movement yesterday morning. She states that last night she had a lot of gas and that this morning she had a small bowel movement. The patient notes that her vomit has been a greenish brown and that this was the same color vomit she had with her last bowel obstruction. The patient denies any issues urinating, though she notes a stent placement 2 weeks ago. The patient denies chest pain. Source of History: patient Onset: last night Position: other (global) Quality: other (global) Timing: intermittent Associated Symptoms: + abdominal pain, No fevers, No chest pain, No diarrhea , No urinary symptoms Review of Systems See HPI for pertinent positives & negatives. A total of 10 systems reviewed and were otherwise negative. Past Medical & Surgical Medical Problems: (1) Cardiomegaly (2) Carotid stenosis (3) Diabetes (4) Hypertension (5) Sacral back pain (6) SBO (small bowel obstruction) Family History Diabetes mellitus FH: heart disease Social History Smoking Status: Never Smoker Drug Use: none Marital Status: Housing Status: lives with family Current/Historical Medications Scheduled Amitriptyline HCl (Amitriptyline HCl), 50 MG PO HS Aspirin (Aspirin Ec), 81 MG PO QPM Atenolol (Tenormin), 25 MG PO QPM Atorvastatin (Lipitor), 80 MG PO QPM Bimatoprost (Lumigan), 1 DROPS OP HS Clopidogrel (Plavix), 75 MG PO QAM Diltiazem Hcl Coated Beads (Cartia Xt), 180 MG PO QPM Docusate Sodium (Colace), 2 CAP PO DAILY Fluticasone Propionate (Fluticasone Propionate), 2 SPRAYS JAQUELIN QAM Gabapentin (Gabapentin), 300 MG PO QAM Gabapentin (Neurontin), 300 MG PO QPM Glipizide (Glipizide), 5 MG PO BID Levothyroxine Sodium (Synthroid), 25 MCG PO QAM Metformin Hcl (Glucophage), 1,000 MG PO BID Nitroglycerin (Nitrostat), 0.4 MG UT PRN Omeprazole (Omeprazole), 20 MG PO BIDM Oxybutynin Chloride (Oxybutynin Chloride), 5 MG PO TID Probiotic Product (Probiotic), 1 CAP PO QAM Scheduled PRN Tramadol (Ultram), 50 MG PO Q6H PRN for Pain Allergies Coded Allergies: Carbamazepine (Verified Allergy, Unknown, RASH, 06/04/17) Oxaprozin (Verified Allergy, Unknown, RASH/HIVES, 06/04/17) Valproic Acid (Verified Allergy, Unknown, HEAD-TOE RASH, 06/04/17) Prednisone (Verified Adverse Reaction, Unknown, ELEVATION OF SUGARS, ) PATIENT HAS GLAUCOMA BOTH EYES - UNABLE TO TAKE PREDNISONE Physical Exam Vital Signs Date Time Temp Pulse Resp B/P (MAP) Pulse Ox O2 Delivery O2 Flow Rate FiO2 06/04/17 18:26 90 147/108 99 Room Air 06/04/17 16:51 94 Nasal Cannula 3.0 06/04/17 16:49 96 165/97 89 Room Air 06/04/17 14:47 36.8 98 20 135/68 94 Room Air Physical Exam Constitutional: Vital signs reviewed. Eyes: Pupils are equal round reactive to light. Conjunctiva are noninjected. ENT: Pharynx is clear without erythema or exudate. Mucous membranes are moist. Neck supple without meningeal signs. Respiratory: Clear to auscultation bilaterally. Breath sounds are equal bilaterally. Cardiovascular: Regular rate and rhythm. No rubs or gallops. GI: Soft and nondistended. Epigastric tenderness. No guarding. Small bruise to the right lower quadrant with mild tenderness. Bowel sounds are present. Musculoskeletal: No peripheral edema. No CVA tenderness. Integumentary: No cyanosis. Neurological: The patient is awake and alert. No focal deficits. Psychiatric: Normal affect. Medical Decision & Procedures ER Provider Diagnostic Interpretation: Radiology results as stated below per my review and the radiologist's interpretation: ABDOMEN 2VIEW W/PA CHEST RTN CLINICAL HISTORY: 77 years-old Female presenting with eval for obstruction, vomiting, abdominal pain. TECHNIQUE: PA view of the chest and supine and upright views of the abdomen were obtained. COMPARISON: 12/22/2016. FINDINGS: Atherosclerosis of aortic arch. Cardiac silhouette is enlarged. Linear opacity in the left lung base persists, likely scarring. No new focal infiltrate. No pleural effusion or pneumothorax. No bowel obstruction. No gross pneumoperitoneum. No calcifications project over the renal shadows. Degenerative changes of the spine. Posterior lumbar fusion hardware with interbody spacers noted. Screw fixation across the left sacroiliac joint also noted. Total left hip arthroplasty. IMPRESSION: 1. No acute cardiopulmonary disease. 2. No radiographic evidence of acute intra-abdominal pathology. No evidence of bowel obstruction. Electronically signed by: Alfredo Sanders M.D. 06/04/2017 6:17 PM Dictated Date/Time: 06/04/2017 6:13 PM ABD/PELVIS NO IV OR ORAL CONT CLINICAL HISTORY: 77 years-old Female presenting with eval for obstruction. TECHNIQUE: Multidetector CT of the abdomen and pelvis was performed without the use of intravenous contrast. IV contrast: None. A dose lowering technique was used consistent with the principles of ALARA (as low as reasonably achievable). COMPARISON: 12/19/2016. CT DOSE (mGy.cm): The estimated cumulative dose is 606.01 mGy.cm. 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 3 screw fixation of the left sacroiliac joint. Total left hip arthroplasty. Lung bases: Minimal dependent changes likely atelectasis. Mild multichamber enlargement of the heart with mitral annular, aortic valve, and coronary artery calcification. No pericardial or pleural effusion. Liver: Normal morphology. Normal density. Biliary: No gross biliary ductal dilatation allowing for noncontrast technique. Normal gallbladder. Pancreas: Moderate parenchymal atrophy. Spleen: Normal noncontrast appearance. Adrenal glands: Normal noncontrast appearance. Kidneys and ureters: Normal noncontrast appearance. No hydronephrosis. Bladder: Incompletely evaluated secondary to underdistention. Pelvic organs: Uterus surgically absent. No adnexal masses. Bowel: Diverticulosis of the sigmoid colon with suggestion of wall thickening, likely indicating chronic diverticular disease. Dilated proximal small bowel with small bowel feces sign in the right anterior mid abdomen, where there is a focal point of transition (series 2 image 48). No bowel wall thickening or pneumatosis. Peritoneal cavity: No free fluid or intraperitoneal gas. Lymph nodes: No enlarged lymph nodes in the abdomen or pelvis. Vasculature: Atherosclerosis of the normal caliber abdominal aorta. Abdominal wall: Midline surgical incision scar. No associated fluid. Minimal infiltration of the right anterior abdominal wall likely indicates medication injection. Musculoskeletal: Total left hip arthroplasty partially visualized. 3 screw fixation across the left sacroiliac joints. Posterior lumbar fusion hardware with interbody spacers laminectomy defects. Overlying surgical incision site in the posterior soft tissues. No associated fluid collection. Degenerative change at the thoracolumbar junction. Osteopenia. IMPRESSION: 1. Findings consistent with high-grade partial or complete small bowel obstruction at the right anterior mid abdomen with small bowel feces immediately upstream. No bowel wall thickening or pneumatosis. The lack of intravenous contrast somewhat limits assessment of bowel. Electronically signed by: Alfredo Sanders M.D. 06/04/2017 7:07 PM Dictated Date/Time: 06/04/2017 7:01 PM Laboratory Results 06/04/17 16:40 Red Blood Count 4.33, Mean Corpuscular Volume 82.0, Mean Corpuscular Hemoglobin 26.8, Mean Corpuscular Hemoglobin Concent 32.7, Mean Platelet Volume 8.9, Neutrophils (%) (Auto) 80.7, Lymphocytes (%) (Auto) 11.5, Monocytes (%) (Auto) 7.4, Eosinophils (%) (Auto) 0.0, Basophils (%) (Auto) 0.1, Neutrophils # (Auto) 8.78, Lymphocytes # (Auto) 1.25, Monocytes # (Auto) 0.81, Eosinophils # (Auto) 0.00, Basophils # (Auto) 0.01 06/04/17 16:40 Test 06/04/17 16:40 White Blood Count 10.88 K/uL (4.8-10.8) Red Blood Count 4.33 M/uL (4.2-5.4) Hemoglobin 11.6 g/dL (12.0-16.0) Hematocrit 35.5 % (37-47) Mean Corpuscular Volume 82.0 fL (80-100) Mean Corpuscular Hemoglobin 26.8 pg (25-34) Mean Corpuscular Hemoglobin Concent 32.7 g/dl (32-36) Platelet Count 319 K/uL (130-400) Mean Platelet Volume 8.9 fL (7.4-10.4) Neutrophils (%) (Auto) 80.7 % Lymphocytes (%) (Auto) 11.5 % Monocytes (%) (Auto) 7.4 % Eosinophils (%) (Auto) 0.0 % Basophils (%) (Auto) 0.1 % Neutrophils # (Auto) 8.78 K/uL (1.4-6.5) Lymphocytes # (Auto) 1.25 K/uL (1.2-3.4) Monocytes # (Auto) 0.81 K/uL (0.11-0.59) Eosinophils # (Auto) 0.00 K/uL (0-0.5) Basophils # (Auto) 0.01 K/uL (0-0.2) RDW Standard Deviation 43.5 fL (36.4-46.3) RDW Coefficient of Variation 14.5 % (11.5-14.5) Immature Granulocyte % (Auto) 0.3 % Immature Granulocyte # (Auto) 0.03 K/uL (0.00-0.02) Anion Gap 7.0 mmol/L (3-11) Est Creatinine Clear Calc Drug Dose 50.2 ml/min Estimated GFR () 67.8 Estimated GFR (Non- 58.5 BUN/Creatinine Ratio 21.1 (10-20) Calcium Level 9.7 mg/dl (8.5-10.1) Total Bilirubin 0.4 mg/dl (0.2-1) Direct Bilirubin 0.1 mg/dl (0-0.2) Aspartate Amino Transf (AST/SGOT) 19 U/L (15-37) Alanine Aminotransferase (ALT/SGPT) 20 U/L (12-78) Alkaline Phosphatase 80 U/L (45-117) Total Protein 7.8 gm/dl (6.4-8.2) Albumin 4.0 gm/dl (3.4-5.0) Lipase 79 U/L (73-393) Laboratory results as reviewed by me. Medications Administered Medications (Trade) Dose Ordered Sig/Vivek Route Start Time Stop Time Status Last Admin Dose Admin Morphine Sulfate (MoRPHine SULFATE INJ) 4 mg ONE STAT IV 06/04/17 16:09 06/04/17 16:11 DC 06/04/17 16:40 4 MG Ondansetron HCl (Zofran Inj) 4 mg NOW STAT IV 06/04/17 16:09 06/04/17 16:11 DC 06/04/17 16:40 4 MG Morphine Sulfate (MoRPHine SULFATE INJ) 2 mg NOW STAT IV 06/04/17 19:25 06/04/17 19:26 DC 06/04/17 19:38 2 MG Ondansetron HCl (Zofran Inj) 4 mg STK-MED ONCE .ROUTE 06/04/17 19:50 06/04/17 19:51 DC 06/04/17 19:54 4 MG ECG Indication: abdominal pain Rate (beats per minute): 97 Rhythm: normal sinus Findings: RBBB, no acute ischemic change, no ectopy Comparison ECG Date: December 18, 2016 Change: no significant change ED Course 1604: The patient was evaluated in room C4. A complete history and physical exam was performed. 160: Ordered Zofran Inj 4 mg IV, Morphine Sulfate 4 mg IV. 1815: I reevaluated the patient and she is feeling better. 1923: I reevaluated the patient and her pain is returning. I discussed her CT results with her. 1924: Ordered Morphine Sulfate 2 mg IV. 1927: I discussed the patient's case with Dr. Kothari. She will further evaluate and treat the patient once seen by surgery. 1932: I discussed the patient's case with Dr. Ramirez- Surgery. She will come evaluate the patient. 1949: Ordered Zofran Inj 4 mg .ROUTE. Medical Decision this is a 77-year-old female presents with vomiting and abdominal pain.differential diagnosis includes small bowel obstruction, partial bowel obstruction, gastritis, DE, dehydration. I did perform a limited focused review of portions of the patient's old chart on the electronic medical record. The patient was admitted in November for a small bowel obstruction. The patient is hypertensive. I did evaluate the patient as noted above. The patient is presenting with abdominal pain and vomiting similar to when she had a previous small bowel obstruction. IV access was established. I did treat the patient with IV morphine and Zofran. I did order and personally review the patient's 12-lead EKG and abdominal and chest x-rays as described above. Twelve-lead EKG is unremarkable. X-rays do not show any evidence of bowel obstruction or free air. I did order and review the patient's blood work as noted in the electronic medical record. Her white blood cell count is slightly elevated. I did order a CT of the abdomen and pelvis. I did review the images myself as well as the radiology report as described above. She does have a high grade obstruction. I did reassess the patient. She is still having some nausea and pain and was given additional morphine and Zofran IV. I did discuss the test results with her. I did order an NG tube. I did discuss the case with the hospitalist for medicine who will hospitalize the patient. I also spoke to surgery who evaluated the patient in the ED. Medication Reconcilliation Current Medication List: was personally reviewed by me Blood Pressure Screening Patient's blood pressure: Elevated blood pressure Will be further monitored by hospitalist. Consults Time Called: 1919 Consulting Physician: Dr. Kothari Returned Call: 1927 I discussed the patient's case with Dr. Kothari. She will further evaluate and treat the patient once seen by surgery. Additional Consults: Time Called: 1929 Consulted Physician: Dr. Philippe sOuna Returned Call: 1932 Additional Comments: I discussed the patient's case with Dr. Philippe Osuna. She will come evaluate the patient. Impression Primary Impression: SBO (small bowel obstruction) Scribe Attestation The scribe's documentation has been prepared under my direct and personally reviewed by me in its entirety. I confirm that the note above accurately reflects all work, treatment, procedures, and medical decision making performed by me. Departure Information Dispostion Being Evaluated By Hospitalist Referrals Ben Brandon D.O. (PCP) Patient Instructions My [facility]
[2017-06-04] MEDS ORDERED: NURSING VERBAL MED ORDER ONE (23:15)
[2017-06-04 23:29] VITALS: BP 156/84; PULSE 95; TEMP 36.4; O2SAT 93
[2017-06-04] MEDS ORDERED: GLUCAGON FOR INJ 1 MG VIAL SQ PRN (23:30)
[2017-06-04] MEDS ORDERED: MoRPHine SULFATE 2 MG/ML CARP IV PRN (23:30)
[2017-06-04] MEDS ORDERED: GLUCOSE 10 TABS/TUBE PO PRN (23:30)
[2017-06-04] MEDS ORDERED: DEXTROSE 50% 50 ML SYR IV PRN (23:30)
[2017-06-04] MEDS ORDERED: GLUCOSE 40% GEL 15 GM TUBE PO PRN (23:30)
[2017-06-04] MEDS: SODIUM CHLORIDE 0.9% 1000ML 1,000 ML IV SCH (23:48)
[2017-06-05] VITALS (7 sets, daily range): BP systolic 102–174; BP diastolic 62–86; PULSE 80–93; TEMP 36.5–37.1; O2SAT 90–93
[2017-06-05] MEDS: INSULIN GLARGINE SOLOSTAR 100 UNITS/ML 3 ML PEN SC SCH ×2 (01:00→08:50)
[2017-06-05 01:40] LABS: URINE APPEARANCE CLOUDY (CLEAR); URINE BILIRUBIN NEG (NEG); URINE COLOR YELLOW; URINE EPITHELIAL CELL AUTO >30 /lpf (0-5); URINE NITRITE POS (NEG); UROBILINOGEN NEG (NEG)
[2017-06-05 01:41] LABS: MANUAL MICROSCOPIC REQUIRED? NO; REVIEW REQ? NO
--- NOTE | 2017-06-05 01:53 | History and Physical ---
History & Physical Date & Time of Service: Jun 04, 2017 at 23:36 Chief Complaint: Sbo (Small Bowel Obstruction) Primary Care Physician: Ben Brandon D.O. History of Present Illness Source: patient, clinic records, hospital records 77 yo F with a h/o SBO in the past including her last hospitalization in December 2016 presents with two days of vomiting and intolerance of PO. She reports this beginning last night after a meal and it was associated wtih abdominal pain that appears to be generalized but concentrated in the RLQ. She had the SBO in December which was managed nonoperatively and she also reports an episode of nausea and vomiting with abdominal pain between then and now which resolved spontaneously at home. She has a history of multiple abdominal surgeries in the past. She also has a history of severe with CAD s/p PCI of the LAD and RCA in 2001, she has known PVD with bilateral CEA, and COPD with use of oxygen at night. On recent cardiology follow-up visit, she was noted to have some exertional fatigue and exertional dyspnea. She underwent a heart cath on revealing an 80% blockage in the prox LAD and RCA with 60% stenosis. She was referred to tertiary care for evaluation and recently admitted to [facility] on 05/19 for one DENISE placed to the LAD for an 80% blockage. In the ER, CT scan reveals a high-grade SBO and NGT was placed with morphine given and the patient was feeling much better per her report. She was seen by Gen Surg who feels there is no acute surgical indication at this time and agrees with conservative measures for now. The suction canister was noted to be completely full of normal-appearing vomitus. Past Medical/Surgical History Medical Problems: (1) Allergic rhinitis Status: Chronic (2) Aortic stenosis Status: Chronic (3) ASCVD (arteriosclerotic cardiovascular disease) Status: Chronic (4) Cardiomegaly Status: Chronic (5) COPD (chronic obstructive pulmonary disease) Status: Chronic (6) Cystocele Status: Chronic (7) Diabetes mellitus, type II Status: Chronic (8) Diabetic neuropathy Status: Chronic (9) GERD (gastroesophageal reflux disease) Status: Chronic (10) Glaucoma Status: Chronic (11) Heart valve disease Status: Chronic (12) Hiatal hernia Status: Chronic (13) HTN (hypertension) Status: Chronic (14) Hyperlipidemia Status: Chronic (15) Hypertension Status: Chronic (16) Hypothyroidism Status: Chronic (17) Incontinence of urine Status: Chronic (18) Osteoarthritis Status: Chronic (19) Rectocele Status: Chronic (20) Restless leg syndrome Status: Chronic (21) Severe aortic stenosis Status: Chronic (22) Vocal cord dysfunction Status: Chronic Surgical Problems: (1) History of back surgery Status: Chronic (2) S/P carotid endarterectomy Status: Chronic (3) S/P carpal tunnel release Status: Chronic (4) S/P lumpectomy, left breast Status: Chronic (5) S/P BOAZ-BSO Status: Chronic (6) Status post coronary artery stent placement Status: Chronic (7) Status post left hip replacement Status: Chronic (8) Status post total knee replacement, left Status: Chronic (9) Status post total knee replacement, right Status: Chronic Family History Diabetes mellitus FH: heart disease Social History Smoking Status: Never Smoker Smokeless Tobacco Use: No Alcohol Use: none Drug Use: none Marital Status: Housing status: lives with family Occupational Status: retired Immunizations History of Influenza Vaccine: Yes Influenza Vaccine Date: Jul 13, 2016 History of Tetanus Vaccine?: Yes Tetanus Immunization Date: Mar 22, 2016 History of Pneumococcal: Yes Pneumococcal Date: Sep 29, 2014 History of Hepatitis B Vaccine: No Multi-Drug Resistant Organisms History of MDRO: No Allergies Coded Allergies: Carbamazepine (Verified Allergy, Unknown, RASH, 06/04/17) Oxaprozin (Verified Allergy, Unknown, RASH/HIVES, 06/04/17) Valproic Acid (Verified Allergy, Unknown, HEAD-TOE RASH, 06/04/17) Prednisone (Verified Adverse Reaction, Unknown, ELEVATION OF SUGARS, ) PATIENT HAS GLAUCOMA BOTH EYES - UNABLE TO TAKE PREDNISONE Home Medications Scheduled Amitriptyline HCl (Amitriptyline HCl), 50 MG PO HS Aspirin (Aspirin Ec), 81 MG PO QPM Atenolol (Tenormin), 25 MG PO QPM Atorvastatin (Lipitor), 80 MG PO QPM Bimatoprost (Lumigan), 1 DROPS OP HS Clopidogrel (Plavix), 75 MG PO QAM Diltiazem Hcl Coated Beads (Cartia Xt), 180 MG PO QPM Docusate Sodium (Colace), 2 CAP PO DAILY Fluticasone Propionate (Fluticasone Propionate), 2 SPRAYS JAQUELIN QAM Gabapentin (Gabapentin), 300 MG PO QAM Gabapentin (Neurontin), 300 MG PO QPM Glipizide (Glipizide), 5 MG PO BID Levothyroxine Sodium (Synthroid), 25 MCG PO QAM Metformin Hcl (Glucophage), 1,000 MG PO BID Nitroglycerin (Nitrostat), 0.4 MG UT PRN Omeprazole (Omeprazole), 20 MG PO BIDM Oxybutynin Chloride (Oxybutynin Chloride), 5 MG PO TID Probiotic Product (Probiotic), 1 CAP PO QAM Review of Systems At least ten systems were reviewed and negative except as indicated in HPI Physical Exam Vital Signs Date Time Temp Pulse Resp B/P (MAP) Pulse Ox O2 Delivery O2 Flow Rate FiO2 06/04/17 21:34 36.6 96 16 167/80 93 Nasal Cannula 2.0 06/04/17 21:32 36.6 96 16 167/80 (109) 92 Nasal Cannula 2.0 06/04/17 21:31 95 20 168/97 98 Nasal Cannula 2.0 06/04/17 20:25 93 20 138/70 95 Room Air 2.0 06/04/17 18:26 90 147/108 99 Room Air 06/04/17 16:51 94 Nasal Cannula 3.0 06/04/17 16:49 96 165/97 89 Room Air 06/04/17 14:47 36.8 98 20 135/68 94 Room Air General Appearance: WD/WN, no apparent distress Head: normocephalic, atraumatic ENT: normal ENT inspection, hearing grossly normal, + pertinent finding (NGT in place to suction with normal vomitus in canister, dry mucous membranes) Neck: supple, no adenopathy, trachea midline Respiratory/Chest: chest non-tender, lungs clear, normal breath sounds, no respiratory distress, no accessory muscle use Cardiovascular: regular rate, rhythm, no edema, no gallop, no JVD, normal peripheral pulses, + systolic murmur Abdomen/GI: normal bowel sounds, soft, + tenderness (generalized) Back: normal inspection, no CVA tenderness Extremities/Musculoskelatal: normal inspection, no pedal edema Neurologic/Psych: no motor/sensory deficits, alert, normal mood/affect, oriented x 3 Skin: normal color, warm/dry, no rash Diagnostics Laboratory Results 10/8/17 16:40 Red Blood Count 4.33, Mean Corpuscular Volume 82.0, Mean Corpuscular Hemoglobin 26.8, Mean Corpuscular Hemoglobin Concent 32.7, Mean Platelet Volume 8.9, Neutrophils (%) (Auto) 80.7, Lymphocytes (%) (Auto) 11.5, Monocytes (%) (Auto) 7.4, Eosinophils (%) (Auto) 0.0, Basophils (%) (Auto) 0.1, Neutrophils # (Auto) 8.78, Lymphocytes # (Auto) 1.25, Monocytes # (Auto) 0.81, Eosinophils # (Auto) 0.00, Basophils # (Auto) 0.01 06/04/17 16:40 Test 06/04/17 16:40 06/04/17 22:17 06/04/17 23:52 06/05/17 01:05 White Blood Count 10.88 K/uL (4.8-10.8) Red Blood Count 4.33 M/uL (4.2-5.4) Hemoglobin 11.6 g/dL (12.0-16.0) Hematocrit 35.5 % (37-47) Mean Corpuscular Volume 82.0 fL (80-100) Mean Corpuscular Hemoglobin 26.8 pg (25-34) Mean Corpuscular Hemoglobin Concent 32.7 g/dl (32-36) Platelet Count 319 K/uL (130-400) Mean Platelet Volume 8.9 fL (7.4-10.4) Neutrophils (%) (Auto) 80.7 % Lymphocytes (%) (Auto) 11.5 % Monocytes (%) (Auto) 7.4 % Eosinophils (%) (Auto) 0.0 % Basophils (%) (Auto) 0.1 % Neutrophils # (Auto) 8.78 K/uL (1.4-6.5) Lymphocytes # (Auto) 1.25 K/uL (1.2-3.4) Monocytes # (Auto) 0.81 K/uL (0.11-0.59) Eosinophils # (Auto) 0.00 K/uL (0-0.5) Basophils # (Auto) 0.01 K/uL (0-0.2) RDW Standard Deviation 43.5 fL (36.4-46.3) RDW Coefficient of Variation 14.5 % (11.5-14.5) Immature Granulocyte % (Auto) 0.3 % Immature Granulocyte # (Auto) 0.03 K/uL (0.00-0.02) Anion Gap 7.0 mmol/L (3-11) Est Creatinine Clear Calc Drug Dose 50.2 ml/min Estimated GFR () 67.8 Estimated GFR (Non- 58.5 BUN/Creatinine Ratio 21.1 (10-20) Calcium Level 9.7 mg/dl (8.5-10.1) Total Bilirubin 0.4 mg/dl (0.2-1) Direct Bilirubin 0.1 mg/dl (0-0.2) Aspartate Amino Transf (AST/SGOT) 19 U/L (15-37) Alanine Aminotransferase (ALT/SGPT) 20 U/L (12-78) Alkaline Phosphatase 80 U/L (45-117) Total Protein 7.8 gm/dl (6.4-8.2) Albumin 4.0 gm/dl (3.4-5.0) Lipase 79 U/L (73-393) Prothrombin Time 11.6 SECONDS (9.0-12.0) Prothromb Time International Ratio 1.1 (0.9-1.1) Bedside Glucose 196 mg/dl (70-90) Urine Color YELLOW Urine Appearance CLOUDY (CLEAR) Urine pH 5.0 (4.5-7.5) Urine Specific [place] 1.030 (1.000-1.030) Urine Protein 2+ (NEG) Urine Glucose (UA) TRACE (NEG) Urine Ketones 1+ (NEG) Urine Occult Blood 1+ (NEG) Urine Nitrite POS (NEG) Urine Bilirubin NEG (NEG) Urine Urobilinogen NEG (NEG) Urine Leukocyte Esterase NEG (NEG) Urine WBC (Auto) 5-10 /hpf (0-5) Urine RBC (Auto) 0-4 /hpf (0-4) Urine Hyaline Casts (Auto) 5-10 /lpf (0-5) Urine Epithelial Cells (Auto) >30 /lpf (0-5) Urine Bacteria (Auto) 4+ (NEG) Date/Time Source Procedure Growth Status 06/05/17 01:05 Urine , Clean Catch Urine Culture Pending Received Results Past 24 Hours Test 10/8/17 16:40 06/04/17 22:17 Range/Units White Blood Count 10.88 4.8-10.8 K/uL Red Blood Count 4.33 4.2-5.4 M/uL Hemoglobin 11.6 12.0-16.0 g/dL Hematocrit 35.5 37-47 % Mean Corpuscular Volume 82.0 80-100 fL Mean Corpuscular Hemoglobin 26.8 25-34 pg Mean Corpuscular Hemoglobin Concent 32.7 32-36 g/dl Platelet Count 319 130-400 K/uL Mean Platelet Volume 8.9 7.4-10.4 fL Neutrophils (%) (Auto) 80.7 % Lymphocytes (%) (Auto) 11.5 % Monocytes (%) (Auto) 7.4 % Eosinophils (%) (Auto) 0.0 % Basophils (%) (Auto) 0.1 % Neutrophils # (Auto) 8.78 1.4-6.5 K/uL Lymphocytes # (Auto) 1.25 1.2-3.4 K/uL Monocytes # (Auto) 0.81 0.11-0.59 K/uL Eosinophils # (Auto) 0.00 0-0.5 K/uL Basophils # (Auto) 0.01 0-0.2 K/uL RDW Standard Deviation 43.5 36.4-46.3 fL RDW Coefficient of Variation 14.5 11.5-14.5 % Immature Granulocyte % (Auto) 0.3 % Immature Granulocyte # (Auto) 0.03 0.00-0.02 K/uL Sodium Level 138 136-145 mmol/L Potassium Level 4.3 3.5-5.1 mmol/L Chloride Level 101 98-107 mmol/L Carbon Dioxide Level 30 21-32 mmol/L Anion Gap 7.0 3-11 mmol/L Blood Urea Nitrogen 20 7-18 mg/dl Creatinine 0.94 0.60-1.20 mg/dl Est Creatinine Clear Calc Drug Dose 50.2 ml/min Estimated GFR () 67.8 Estimated GFR (Non- 58.5 BUN/Creatinine Ratio 21.1 10-20 Random Glucose 179 70-99 mg/dl Calcium Level 9.7 8.5-10.1 mg/dl Total Bilirubin 0.4 0.2-1 mg/dl Direct Bilirubin 0.1 0-0.2 mg/dl Aspartate Amino Transf (AST/SGOT) 19 15-37 U/L Alanine Aminotransferase (ALT/SGPT) 20 12-78 U/L Alkaline Phosphatase 80 45-117 U/L Total Protein 7.8 6.4-8.2 gm/dl Albumin 4.0 3.4-5.0 gm/dl Lipase 79 73-393 U/L Prothrombin Time 11.6 9.0-12.0 SECONDS Prothromb Time International Ratio 1.1 0.9-1.1 Diagnostic Radiology ABD/PELVIS NO IV OR ORAL CONT CLINICAL HISTORY: 77 years-old Female presenting with eval for obstruction. TECHNIQUE: Multidetector CT of the abdomen and pelvis was performed without the use of intravenous contrast. IV contrast: None. A dose lowering technique was used consistent with the principles of ALARA (as low as reasonably achievable). COMPARISON: 12/19/2016. CT DOSE (mGy.cm): The estimated cumulative dose is 606.01 mGy.cm. FINDINGS: Design Drafter Chief topogram: Posterior lumbar fusion hardware. 3 screw fixation of the left sacroiliac joint. Total left hip arthroplasty. Lung bases: Minimal dependent changes likely atelectasis. Mild multichamber enlargement of the heart with mitral annular, aortic valve, and coronary artery calcification. No pericardial or pleural effusion. Liver: Normal morphology. Normal density. Biliary: No gross biliary ductal dilatation allowing for noncontrast technique. Normal gallbladder. Pancreas: Moderate parenchymal atrophy. Spleen: Normal noncontrast appearance. Adrenal glands: Normal noncontrast appearance. Kidneys and ureters: Normal noncontrast appearance. No hydronephrosis. Bladder: Incompletely evaluated secondary to underdistention. Pelvic organs: Uterus surgically absent. No adnexal masses. Bowel: Diverticulosis of the sigmoid colon with suggestion of wall thickening, likely indicating chronic diverticular disease. Dilated proximal small bowel with small bowel feces sign in the right anterior mid abdomen, where there is a focal point of transition (series 2 image 48). No bowel wall thickening or pneumatosis. Peritoneal cavity: No free fluid or intraperitoneal gas. Lymph nodes: No enlarged lymph nodes in the abdomen or pelvis. Vasculature: Atherosclerosis of the normal caliber abdominal aorta. Abdominal wall: Midline surgical incision scar. No associated fluid. Minimal infiltration of the right anterior abdominal wall likely indicates medication injection. Musculoskeletal: Total left hip arthroplasty partially visualized. 3 screw fixation across the left sacroiliac joints. Posterior lumbar fusion hardware with interbody spacers laminectomy defects. Overlying surgical incision site in the posterior soft tissues. No associated fluid collection. Degenerative change at the thoracolumbar junction. Osteopenia. IMPRESSION: 1. Findings consistent with high-grade partial or complete small bowel obstruction at the right anterior mid abdomen with small bowel feces immediately upstream. No bowel wall thickening or pneumatosis. The lack of intravenous contrast somewhat limits assessment of bowel. -0 -------- ABDOMEN 2VIEW W/PA CHEST RTN CLINICAL HISTORY: 77 years-old Female presenting with eval for obstruction, vomiting, abdominal pain. TECHNIQUE: PA view of the chest and supine and upright views of the abdomen were obtained. COMPARISON: 12/22/2016. FINDINGS: Atherosclerosis of aortic arch. Cardiac silhouette is enlarged. Linear opacity in the left lung base persists, likely scarring. No new focal infiltrate. No pleural effusion or pneumothorax. No bowel obstruction. No gross pneumoperitoneum. No calcifications project over the renal shadows. Degenerative changes of the spine. Posterior lumbar fusion hardware with interbody spacers noted. Screw fixation across the left sacroiliac joint also noted. Total left hip arthroplasty. IMPRESSION: 1. No acute cardiopulmonary disease. 2. No radiographic evidence of acute intra-abdominal pathology. No evidence of bowel obstruction. No change from prior EKG Impression Assessment and Plan 77 yo F with h/o abdominal surgeries presents with SBO 1. SBO-likely 2/2 abdominal surgeries in the past. She has had two other episodes of obstruction this year. NGT and morphine providing some relief. Per Gen Surgery she does not require surgery at this time. Cont conservative measures. 2. CAD s//p stent two weeks ago. Continuing ASA/Plaxix despite NGT so long as tolerated. Otherwise she is NPO and we cannot give more medications at this time. 3. UTI-she has some chronic urinary incontinence, but urine looks slight dirty. UA is positive, poss cystitis--covering empirically with rocephin 4. Hypothyroidism-cont home dose of synthroid 5. DMII-Lantus only for now and will add coverage until patient begins eating. DVT proph-Lovenox Full Code Dispo-med/surg Advanced Directives Existing Living Will: Yes Existing Power of Interior Design Coordinator: Yes VTE Prophylaxis VTE Risk Assessment Done? Y/N: Yes Risk Level: Moderate Given or contraindicated: Enoxaparin (Lovenox)SQ
[2017-06-05] MEDS: CEFTRIAXONE SOD INJ 1 GM in DEXTROSE 5% ADD-VANTAGE 50ML 50 ML IV SCH (03:10)
[2017-06-05] MEDS: SODIUM CHLORIDE 0.9% 1000ML 1,000 ML IV SCH ×2 (06:32→17:53)
[2017-06-05] MEDS: ASPIRIN 81 MG ECTAB PO SCH (08:44)
[2017-06-05] MEDS: CLOPIDOGREL BISULFATE 75 MG TAB PO SCH (08:45)
[2017-06-05 08:55] LABS: BASO % 0.2 %; BASO ABS # 0.01 K/uL (0-0.2); COMPLETE YES; EOS % 1.2 %; HEMATOCRIT 33.5 % (37-47); IG% 0.2 %; MEAN CELL VOLUME 83.8 fL (80-100); MEAN PLATELET VOLUME 8.8 fL (7.4-10.4); MONO % 9.5 %; NEUT % 53.9 %; PLATELET COUNT 280 K/uL (130-400); WHITE BLOOD COUNT 5.71 K/uL (4.8-10.8)
[2017-06-05] MEDS ORDERED: ENOXAPARIN 40 MG/0.4 ML SYR SQ SCH (09:00)
[2017-06-05 09:17] LABS: BUN/CREATININE RATIO 23.3 (10-20); CALCIUM 8.6 mg/dl (8.5-10.1); CREATININE 0.84 mg/dl (0.60-1.20); MAGNESIUM 1.4 mg/dl (1.8-2.4); POTASSIUM 4.1 mmol/L (3.5-5.1)
--- NOTE | 2017-06-05 09:29 | Progress Note ---
Medicine Progress Note Date & Time of Visit: Jun 05, 2017 at 09:17. Subjective seen sitting up in bedside chair appears comfortable, smiling states she feels improved compared to last night NG tube in place, draining around 600cc of non bilious, non bloody output denies nausea, epigastric pain improving, (+) flatus, no BMs yet denies chest pain, dyspnea, palpitations, dizziness, headache no other symptoms eager for resuming diet if possible Objective Last 8 Hrs Date Time Temp Pulse Resp B/P (MAP) Pulse Ox O2 Delivery O2 Flow Rate FiO2 06/05/17 07:28 36.7 91 18 161/81 (107) 92 06/05/17 07:25 Nasal Cannula 06/05/17 03:31 36.5 93 16 146/86 (106) 91 Room Air Physical Exam: General- oriented x 3, not in distress, speaks in sentences with no effort Head- atraumatic Eyes- EOMI, anicteric ENT- (+) NG tube in place Neck- supple, no JVD, no adenopathy, no thyromegaly Lungs- clear breath sounds bilaterally Heart- regular rhythm; (+) grade 4/6 syst murmur, normal rate Abdomen- non distended, hypoactive bowel sounds, soft, nontender Extremities- no pretibial edema, no calf tenderness Neuro- alert, oriented x 3; no gross focal deficits Skin- warm & dry Laboratory Results: Last 24 Hours Test 06/04/17 16:40 06/04/17 22:17 06/04/17 23:52 06/05/17 01:05 White Blood Count 10.88 K/uL Red Blood Count 4.33 M/uL Hemoglobin 11.6 g/dL Hematocrit 35.5 % Mean Corpuscular Volume 82.0 fL Mean Corpuscular Hemoglobin 26.8 pg Mean Corpuscular Hemoglobin Concent 32.7 g/dl Platelet Count 319 K/uL Mean Platelet Volume 8.9 fL Neutrophils (%) (Auto) 80.7 % Lymphocytes (%) (Auto) 11.5 % Monocytes (%) (Auto) 7.4 % Eosinophils (%) (Auto) 0.0 % Basophils (%) (Auto) 0.1 % Neutrophils # (Auto) 8.78 K/uL Lymphocytes # (Auto) 1.25 K/uL Monocytes # (Auto) 0.81 K/uL Eosinophils # (Auto) 0.00 K/uL Basophils # (Auto) 0.01 K/uL RDW Standard Deviation 43.5 fL RDW Coefficient of Variation 14.5 % Immature Granulocyte % (Auto) 0.3 % Immature Granulocyte # (Auto) 0.03 K/uL Sodium Level 138 mmol/L Potassium Level 4.3 mmol/L Chloride Level 101 mmol/L Carbon Dioxide Level 30 mmol/L Anion Gap 7.0 mmol/L Blood Urea Nitrogen 20 mg/dl Creatinine 0.94 mg/dl Est Creatinine Clear Calc Drug Dose 50.2 ml/min Estimated GFR () 67.8 Estimated GFR (Non- 58.5 BUN/Creatinine Ratio 21.1 Random Glucose 179 mg/dl Calcium Level 9.7 mg/dl Total Bilirubin 0.4 mg/dl Direct Bilirubin 0.1 mg/dl Aspartate Amino Transf (AST/SGOT) 19 U/L Alanine Aminotransferase (ALT/SGPT) 20 U/L Alkaline Phosphatase 80 U/L Total Protein 7.8 gm/dl Albumin 4.0 gm/dl Lipase 79 U/L Prothrombin Time 11.6 SECONDS Prothromb Time International Ratio 1.1 Bedside Glucose 196 mg/dl Urine Color YELLOW Urine Appearance CLOUDY Urine pH 5.0 Urine Specific [place] 1.030 Urine Protein 2+ Urine Glucose (UA) TRACE Urine Ketones 1+ Urine Occult Blood 1+ Urine Nitrite POS Urine Bilirubin NEG Urine Urobilinogen NEG Urine Leukocyte Esterase NEG Urine WBC (Auto) 5-10 /hpf Urine RBC (Auto) 0-4 /hpf Urine Hyaline Casts (Auto) 5-10 /lpf Urine Epithelial Cells (Auto) >30 /lpf Urine Bacteria (Auto) 4+ Test 06/05/17 05:49 06/05/17 08:27 Bedside Glucose 170 mg/dl White Blood Count 5.71 K/uL Red Blood Count 4.00 M/uL Hemoglobin 10.4 g/dL Hematocrit 33.5 % Mean Corpuscular Volume 83.8 fL Mean Corpuscular Hemoglobin 26.0 pg Mean Corpuscular Hemoglobin Concent 31.0 g/dl Platelet Count 280 K/uL Mean Platelet Volume 8.8 fL Neutrophils (%) (Auto) 53.9 % Lymphocytes (%) (Auto) 35.0 % Monocytes (%) (Auto) 9.5 % Eosinophils (%) (Auto) 1.2 % Basophils (%) (Auto) 0.2 % Neutrophils # (Auto) 3.08 K/uL Lymphocytes # (Auto) 2.00 K/uL Monocytes # (Auto) 0.54 K/uL Eosinophils # (Auto) 0.07 K/uL Basophils # (Auto) 0.01 K/uL RDW Standard Deviation 45.2 fL RDW Coefficient of Variation 14.7 % Immature Granulocyte % (Auto) 0.2 % Immature Granulocyte # (Auto) 0.01 K/uL Sodium Level 140 mmol/L Potassium Level 4.1 mmol/L Chloride Level 102 mmol/L Carbon Dioxide Level 31 mmol/L Anion Gap 7.0 mmol/L Blood Urea Nitrogen 20 mg/dl Creatinine 0.84 mg/dl Est Creatinine Clear Calc Drug Dose 56.2 ml/min Estimated GFR () 77.7 Estimated GFR (Non- 67.0 BUN/Creatinine Ratio 23.3 Random Glucose 146 mg/dl Calcium Level 8.6 mg/dl Magnesium Level 1.4 mg/dl Date/Time Source Procedure Growth Status 06/05/17 01:05 Urine , Clean Catch Urine Culture Pending Received Assessment & Plan 77 year old female with history of SBOs in the past, CAD/CABG s/p Drug Eluting Stent Placement to LAD 05/19/17, Severe Aortic Stenosis, DM 2, other problems below presenting with abdominal pain. SMALL BOWEL OBSTRUCTION - history of appendectomy and hysterectomy SBO after knee surgery in 2012, s/p Adhesiolysis had SBO in November 2016, managed conservatively - improving today, (+) flatus only maintain NG tube, NPO gentle IV fluids (monitor closely as patient has severe AV stenosis) hold PO medications except ASA, Plavix, Atenolol, Diltiazem to be taken while NG tube is clamped and maintain clamped for at least 2 hours after taking these pills - Dr. Ramirez consulted- conservative management for now appreciate the input CAD/CABG s/p Drug Eluting Stent Placement to LAD 05/19/17 - no cardiac symptoms - EKG RBBB - hold PO medications except ASA, Plavix, Atenolol, Diltiazem to be taken while NG tube is clamped and maintain clamped for at least 2 hours after taking these pills monitor closely in Tele Severe Aortic Valve Stenosis - no signs of overload gentle IV fluids (monitor closely as patient has severe AV stenosis) Possible UTI-she has some chronic urinary incontinence, but urine looks slight dirty. UA is positive, poss cystitis--covering empirically with rocephin - ff up cultures DMII - hold oral medications - ISS for now monitor BSGs DVT proph-Heparin Full Code Dispo - transfer to [facility] with at home, anticipate d/c home when medically stable Current Inpatient Medications: Current Inpatient Medications Medications (Trade) Dose Ordered Sig/Vivek Route Start Time Stop Time Status Last Admin Dose Admin Ondansetron HCl (Zofran Inj) 4 mg Q6H PRN IV 06/04/17 22:30 07/04/17 22:29 Sodium Chloride 1,000 ml @ 75 mls/hr [id number] IV 06/04/17 22:30 07/04/17 22:29 06/05/17 06:32 125 MLS/HR Morphine Sulfate (MoRPHine SULFATE INJ) 2 mg Q2H PRN IV 06/04/17 23:30 06/18/17 23:29 06/05/17 01:03 2 MG Glucose (Glucose 40% Gel) 15-30 GRAMS 15 GRAMS... UD PRN PO 06/04/17 23:30 07/04/17 23:29 Glucose (Glucose Chew Tab) 4-8 Tablets 4 Tabl... UD PRN PO 06/04/17 23:30 07/04/17 23:29 Dextrose (Dextrose 50% 50ML Syringe) 25-50ML OF 50% DW IV FOR... UD PRN IV 06/04/17 23:30 07/04/17 23:29 Glucagon (Glucagon Inj) 1 mg UD PRN SQ 06/04/17 23:30 07/04/17 23:29 Clopidogrel Bisulfate (plAVix TAB) 75 mg QAM PO 06/05/17 09:00 07/05/17 08:59 06/05/17 08:45 75 MG Bimatoprost (Lumigan 0.01%) 1 drops HS OP 06/05/17 21:00 07/05/17 20:59 Aspirin (Ecotrin Tab) 81 mg QAM PO 06/05/17 09:00 07/05/17 08:59 06/05/17 08:44 81 MG Ceftriaxone Sodium 1 gm/ Dextrose 50 ml @ 100 mls/hr Q24H IV 06/05/17 03:00 06/10/17 02:59 06/05/17 03:10 100 MLS/HR Atenolol (Tenormin Tab) 12.5 mg TODAY@2100 PO 06/05/17 21:00 06/05/17 21:01 Diltiazem HCl (Cardizem Cd Cap) 180 mg QPM PO 06/05/17 21:00 07/05/17 20:59 UNV Atenolol (Tenormin Tab) 12.5 mg 0859 ONCE PO 06/05/17 08:59 06/05/17 09:00 UNV Atenolol (Tenormin Tab) 25 mg HS PO 06/06/17 21:00 07/06/17 20:59 UNV Heparin Sodium (Porcine) (Heparin Sq 5000 Unit/0.5ml) 5,000 unit Q8 SQ 06/06/17 09:00 07/06/17 08:59 UNV Insulin Aspart (novoLOG ASPART) SLIDING SCALE If C... ACHS SC 06/05/17 12:00 07/05/17 11:59 UNV
[2017-06-05] MEDS ORDERED: INSULIN ASPART 100 UNITS/ML 3 ML PEN SC SCH (11:29)
[2017-06-05] MEDS ORDERED: NURSING VERBAL MED ORDER ONE (11:45)
[2017-06-05] MEDS: INSULIN ASPART 100 UNITS/ML 3 ML PEN SC SCH ×2 (12:32→18:00)
[2017-06-05] MEDS: MAGNESIUM SULFATE 1GM / D5W 1 GM in PREMIXED IN D5W 100 ML IV SCH ×2 (18:11→20:26)
--- NOTE | 2017-06-05 19:16 | Surgery Progress Note ---
Surgery Progress Note Date of Service Jun 05, 2017. Subjective Post OP Day: HD # 1 + feeling well, + flatus, + pain controlled, No bowel movement, No nausea, No vomiting Objective Vital Signs: Date Time Temp Pulse Resp B/P (MAP) Pulse Ox O2 Delivery O2 Flow Rate FiO2 06/05/17 16:56 36.9 82 16 174/83 (113) 91 06/05/17 16:00 Room Air 06/05/17 12:00 Room Air 06/05/17 11:46 36.7 87 18 145/80 (101) 90 Room Air 06/05/17 10:24 36.7 91 18 06/05/17 07:28 36.7 91 18 161/81 (107) 92 06/05/17 07:25 Nasal Cannula 06/05/17 03:31 36.5 93 16 146/86 (106) 91 Room Air 06/04/17 23:29 36.4 95 16 156/84 (108) 93 Nasal Cannula 2.0 06/04/17 23:15 Nasal Cannula 2.0 06/04/17 21:34 36.6 96 16 167/80 93 Nasal Cannula 2.0 06/04/17 21:32 36.6 96 16 167/80 (109) 92 Nasal Cannula 2.0 06/04/17 21:31 95 20 168/97 98 Nasal Cannula 2.0 06/04/17 20:25 93 20 138/70 95 Room Air 2.0 General Appearance: WD/WN, no apparent distress Neck: trachea midline Respiratory/Chest: no respiratory distress, no accessory muscle use Abdomen: non distended, soft, + tenderness (very mild tenderness on deep palpation) Laboratory Results: Results Past 24 Hours Test 06/04/17 22:17 06/04/17 23:52 06/05/17 01:05 06/05/17 05:49 Range/Units Prothrombin Time 11.6 9.0-12.0 SECONDS Prothromb Time International Ratio 1.1 0.9-1.1 Bedside Glucose 196 170 70-90 mg/dl Urine Color YELLOW Urine Appearance CLOUDY CLEAR Urine pH 5.0 4.5-7.5 Urine Specific [place] 1.030 1.000-1.030 Urine Protein 2+ NEG Urine Glucose (UA) TRACE NEG Urine Ketones 1+ NEG Urine Occult Blood 1+ NEG Urine Nitrite POS NEG Urine Bilirubin NEG NEG Urine Urobilinogen NEG NEG Urine Leukocyte Esterase NEG NEG Urine WBC (Auto) 5-10 0-5 /hpf Urine RBC (Auto) 0-4 0-4 /hpf Urine Hyaline Casts (Auto) 5-10 0-5 /lpf Urine Epithelial Cells (Auto) >30 0-5 /lpf Urine Bacteria (Auto) 4+ NEG Test 06/05/17 08:27 06/05/17 12:11 06/05/17 17:59 Range/Units White Blood Count 5.71 4.8-10.8 K/uL Red Blood Count 4.00 4.2-5.4 M/uL Hemoglobin 10.4 12.0-16.0 g/dL Hematocrit 33.5 37-47 % Mean Corpuscular Volume 83.8 80-100 fL Mean Corpuscular Hemoglobin 26.0 25-34 pg Mean Corpuscular Hemoglobin Concent 31.0 32-36 g/dl Platelet Count 280 130-400 K/uL Mean Platelet Volume 8.8 7.4-10.4 fL Neutrophils (%) (Auto) 53.9 % Lymphocytes (%) (Auto) 35.0 % Monocytes (%) (Auto) 9.5 % Eosinophils (%) (Auto) 1.2 % Basophils (%) (Auto) 0.2 % Neutrophils # (Auto) 3.08 1.4-6.5 K/uL Lymphocytes # (Auto) 2.00 1.2-3.4 K/uL Monocytes # (Auto) 0.54 0.11-0.59 K/uL Eosinophils # (Auto) 0.07 0-0.5 K/uL Basophils # (Auto) 0.01 0-0.2 K/uL RDW Standard Deviation 45.2 36.4-46.3 fL RDW Coefficient of Variation 14.7 11.5-14.5 % Immature Granulocyte % (Auto) 0.2 % Immature Granulocyte # (Auto) 0.01 0.00-0.02 K/uL Sodium Level 140 136-145 mmol/L Potassium Level 4.1 3.5-5.1 mmol/L Chloride Level 102 98-107 mmol/L Carbon Dioxide Level 31 21-32 mmol/L Anion Gap 7.0 3-11 mmol/L Blood Urea Nitrogen 20 7-18 mg/dl Creatinine 0.84 0.60-1.20 mg/dl Est Creatinine Clear Calc Drug Dose 56.2 ml/min Estimated GFR () 77.7 Estimated GFR (Non- 67.0 BUN/Creatinine Ratio 23.3 10-20 Random Glucose 146 70-99 mg/dl Calcium Level 8.6 8.5-10.1 mg/dl Magnesium Level 1.4 1.8-2.4 mg/dl Bedside Glucose 110 98 70-90 mg/dl Microbiology Results 06/05/17 Urine Culture, Received Pending Assessment & Plan Partial SBO -vitals stable - no leukocytosis - passing flatus - abdomen soft, nondistended Plan: Continue conservative management: Iv fluids, IV pain medication, NGT to LIS, IV zofran as needed Possible DC NGT tomorrow if continues to pass flatus continue medical management will continue to follow Dr. Talbot has seen and examined patient, agrees with above I interviewed and examined this patient and I agree with the above note. She has signs and symptoms as well as CT scan consistent with small bowel obstruction which she is now passing what she describes as a lot of flatus. This may be resolving. Consider removing the NG tube tomorrow if the flatus continues especially she has a bowel movement. Is no evidence of peritonitis. I would continue with conservative measures.
[2017-06-05] MEDS: BIMATOPROST 0.01% OP SOLN 2.5 ML BTL OP SCH (20:31)
[2017-06-05] MEDS ORDERED: DILTIAZEM HCL 180 MG CAPCR PO SCH (21:00)
[2017-06-05] MEDS: DILTIAZEM HCL 60 MG TAB PO SCH (21:29)
[2017-06-06] VITALS (7 sets, daily range): BP systolic 119–182; BP diastolic 67–81; PULSE 62–86; TEMP 36.2–37.1; O2SAT 92–96; Ht 160 cm; Wt 80.0 kg
[2017-06-06] MEDS: CEFTRIAXONE SOD INJ 1 GM in DEXTROSE 5% ADD-VANTAGE 50ML 50 ML IV SCH (03:15)
[2017-06-06 05:54] LABS: BASO % 0.2 %; BASO ABS # 0.01 K/uL (0-0.2); COMPLETE YES; EOS % 1.6 %; HEMATOCRIT 30.3 % (37-47); IG% 0.3 %; LYMPH % 33.2 %; LYMPH ABS # 2.02 K/uL (1.2-3.4); MEAN CELL VOLUME 83.9 fL (80-100); MEAN CORPUSCULAR HGB CONC 33.3 g/dl (32-36); MEAN PLATELET VOLUME 8.5 fL (7.4-10.4); MONO % 7.4 %; NEUT % 57.3 %; PLATELET COUNT 249 K/uL (130-400); RED BLOOD COUNT 3.61 M/uL (4.2-5.4); WHITE BLOOD COUNT 6.08 K/uL (4.8-10.8)
[2017-06-06] MEDS: INSULIN ASPART 100 UNITS/ML 3 ML PEN SC SCH ×5 (06:00→20:24)
[2017-06-06 06:04] LABS: ESTIMATED AVERAGE GLUCOSE 183 mg/dl; HA1C FLAG Normal (Normal)
[2017-06-06 06:31] LABS: BUN/CREATININE RATIO 19.9 (10-20); CALCIUM 8.3 mg/dl (8.5-10.1); CREATININE 0.67 mg/dl (0.60-1.20); POTASSIUM 3.7 mmol/L (3.5-5.1)
[2017-06-06] MEDS: DILTIAZEM HCL 60 MG TAB PO SCH ×3 (08:37→20:32)
[2017-06-06] MEDS: SODIUM CHLORIDE 0.9% 1000ML 1,000 ML IV SCH ×2 (08:37→23:31)
[2017-06-06] MEDS: CLOPIDOGREL BISULFATE 75 MG TAB PO SCH (08:38)
[2017-06-06] MEDS: ASPIRIN 81 MG ECTAB PO SCH (08:38)
[2017-06-06] MEDS: HEPARIN SOD 5000 UNIT/0.5 ML CARP SQ SCH ×3 (08:41→20:35)
--- NOTE | 2017-06-06 11:44 | Surgery Progress Note ---
Surgery Progress Note Date of Service Jun 06, 2017. Subjective Post OP Day: HD # 2 + feeling well, + flatus, No complaints, No bowel movement, No nausea, No vomiting Objective Vital Signs: Date Time Temp Pulse Resp B/P (MAP) Pulse Ox O2 Delivery O2 Flow Rate FiO2 06/06/17 08:00 Room Air 06/06/17 07:55 36.2 84 16 159/72 (101) 96 Room Air 06/06/17 05:47 80 146/73 (97) 06/06/17 04:33 36.9 86 20 182/76 (111) 93 Room Air 06/06/17 04:00 Room Air 06/06/17 00:01 Room Air 06/05/17 23:32 36.9 82 20 102/62 (75) 93 06/05/17 20:00 Room Air 06/05/17 19:35 37.1 80 21 161/77 (105) 92 Room Air 06/05/17 16:56 36.9 82 16 174/83 (113) 91 06/05/17 16:00 Room Air 06/05/17 12:00 Room Air 06/05/17 11:46 36.7 87 18 145/80 (101) 90 Room Air Physical Exam: nasogastric drainage (scant, clear drainage in canister) General Appearance: WD/WN, no apparent distress Head: normocephalic, atraumatic Neck: trachea midline Respiratory/Chest: no respiratory distress, no accessory muscle use Abdomen: non tender, non distended, soft, no organomegaly, no pulsatile mass, + abnormal bowel sounds (bowel sounds x 2 quadrants) Laboratory Results: Results Past 24 Hours Test 06/05/17 12:11 06/05/17 17:59 06/06/17 00:20 06/06/17 05:29 Range/Units Bedside Glucose 110 98 119 70-90 mg/dl White Blood Count 6.08 4.8-10.8 K/uL Red Blood Count 3.61 4.2-5.4 M/uL Hemoglobin 10.1 12.0-16.0 g/dL Hematocrit 30.3 37-47 % Mean Corpuscular Volume 83.9 80-100 fL Mean Corpuscular Hemoglobin 28.0 25-34 pg Mean Corpuscular Hemoglobin Concent 33.3 32-36 g/dl Platelet Count 249 130-400 K/uL Mean Platelet Volume 8.5 7.4-10.4 fL Neutrophils (%) (Auto) 57.3 % Lymphocytes (%) (Auto) 33.2 % Monocytes (%) (Auto) 7.4 % Eosinophils (%) (Auto) 1.6 % Basophils (%) (Auto) 0.2 % Neutrophils # (Auto) 3.48 1.4-6.5 K/uL Lymphocytes # (Auto) 2.02 1.2-3.4 K/uL Monocytes # (Auto) 0.45 0.11-0.59 K/uL Eosinophils # (Auto) 0.10 0-0.5 K/uL Basophils # (Auto) 0.01 0-0.2 K/uL RDW Standard Deviation 45.0 36.4-46.3 fL RDW Coefficient of Variation 14.7 11.5-14.5 % Immature Granulocyte % (Auto) 0.3 % Immature Granulocyte # (Auto) 0.02 0.00-0.02 K/uL Sodium Level 139 136-145 mmol/L Potassium Level 3.7 3.5-5.1 mmol/L Chloride Level 104 98-107 mmol/L Carbon Dioxide Level 26 21-32 mmol/L Anion Gap 9.0 3-11 mmol/L Blood Urea Nitrogen 13 7-18 mg/dl Creatinine 0.67 0.60-1.20 mg/dl Est Creatinine Clear Calc Drug Dose 70.4 ml/min Estimated GFR () 98.3 Estimated GFR (Non- 84.8 BUN/Creatinine Ratio 19.9 10-20 Random Glucose 133 70-99 mg/dl Estimated Average Glucose 183 mg/dl Hemoglobin A1c 8.0 4.5-5.6 % Calcium Level 8.3 8.5-10.1 mg/dl Magnesium Level 2.0 1.8-2.4 mg/dl Test 06/06/17 06:09 06/06/17 11:03 Range/Units Bedside Glucose 125 97 70-90 mg/dl Assessment & Plan Partial SBO -vitals stable - no leukocytosis - passing flatus, more consistent, no bowel movement - abdomen soft, nondistended, no further abdominal pain Plan: Discontinue NGT and start clear liquids Advised patient to take the liquids slowly, if any nausea or pain stop continue medical management will continue to follow re-evaluated patient at 2:[address] Talbot Doing well since NGT was removed No nausea , vomiting, or abdominal pain tolerated clears without difficulty still passing a lot of gas Plan: continue clears, if does well can advance as tolerated await bowel movement continue medical management will follow Dr. Talbot has seen and examined patient, agrees with above
[2017-06-06] MEDS ORDERED: NURSING VERBAL MED ORDER ONE ×2 (14:30→20:45)
--- NOTE | 2017-06-06 18:18 | Progress Note ---
Medicine Progress Note Date & Time of Visit: Jun 06, 2017 at 18:18. Subjective Patient reports feeling better; denies any abdominal pain or nausea/vomiting. NG tube was removed earlier today and the patient was placed on clear liquids and tolerated this without difficulty. She has been passing flatus but no BM yet. No overnight events noted. No CP or SOB. No other complaints. Objective Last 8 Hrs Date Time Temp Pulse Resp B/P (MAP) Pulse Ox O2 Delivery O2 Flow Rate FiO2 06/06/17 16:00 Room Air 06/06/17 15:01 36.9 82 16 146/67 (93) 92 Room Air 06/06/17 12:00 Room Air 06/06/17 12:00 36.9 83 20 152/81 (104) 93 Room Air Physical Exam: General: adult, appears stated age Head: atraumatic, normocephalic Eyes: PERRL, EOMI, anicteric Neck: supple, no JVD, no carotids bruits appreciated Lungs: clear to auscultation bilaterally; no chest wall pain/tenderness to palpation noted Heart: RR; loud MILLER murmur, no gallop, no rub appreciated, S1 and S2 auscultated Abdomen: soft, nontender, normal bowel sounds, no palpable masses, no notable hepatosplenomegaly Extremities: no edema, no calf tenderness Neuro: alert, oriented x 3; no facial palsy; no dysarthria; no acute focal deficits noted Skin: warm, dry, no rashes Laboratory Results: Last 24 Hours Test 06/06/17 00:20 06/06/17 05:29 06/06/17 06:09 06/06/17 11:03 Bedside Glucose 119 mg/dl 125 mg/dl 97 mg/dl White Blood Count 6.08 K/uL Red Blood Count 3.61 M/uL Hemoglobin 10.1 g/dL Hematocrit 30.3 % Mean Corpuscular Volume 83.9 fL Mean Corpuscular Hemoglobin 28.0 pg Mean Corpuscular Hemoglobin Concent 33.3 g/dl Platelet Count 249 K/uL Mean Platelet Volume 8.5 fL Neutrophils (%) (Auto) 57.3 % Lymphocytes (%) (Auto) 33.2 % Monocytes (%) (Auto) 7.4 % Eosinophils (%) (Auto) 1.6 % Basophils (%) (Auto) 0.2 % Neutrophils # (Auto) 3.48 K/uL Lymphocytes # (Auto) 2.02 K/uL Monocytes # (Auto) 0.45 K/uL Eosinophils # (Auto) 0.10 K/uL Basophils # (Auto) 0.01 K/uL RDW Standard Deviation 45.0 fL RDW Coefficient of Variation 14.7 % Immature Granulocyte % (Auto) 0.3 % Immature Granulocyte # (Auto) 0.02 K/uL Sodium Level 139 mmol/L Potassium Level 3.7 mmol/L Chloride Level 104 mmol/L Carbon Dioxide Level 26 mmol/L Anion Gap 9.0 mmol/L Blood Urea Nitrogen 13 mg/dl Creatinine 0.67 mg/dl Est Creatinine Clear Calc Drug Dose 70.4 ml/min Estimated GFR () 98.3 Estimated GFR (Non- 84.8 BUN/Creatinine Ratio 19.9 Random Glucose 133 mg/dl Estimated Average Glucose 183 mg/dl Hemoglobin A1c 8.0 % Calcium Level 8.3 mg/dl Magnesium Level 2.0 mg/dl Test 06/06/17 16:05 Bedside Glucose 86 mg/dl Assessment & Plan SMALL BOWEL OBSTRUCTION: -has had multiple episodes of SBO in the past -has had multiple abdominal surgeries in the past as well including appendectomy , hysterectomy, KOTA -passing flatus only -NG tube removed 06/06 -stop IV fluids -hold PO medications except ASA, Plavix, Atenolol, Diltiazem -Surgery consulted, appreciate recommendations, diet advanced to clears CAD: prior hx of CABG and recent PCI with DENISE to LAD 05/19/17 -no symptoms at present -EKG: RBBB -continued on ASA, Plavix, Atenolol, Diltiazem SEVERE AORTIC VALVE STENOSIS: -no signs of fluid overload -monitor fluid status closely -can D/C IV fluids as taking liquids PO now UTI: -urine culture grew E coli -UA positive -empirically started with rocephin which is continued DM TYPE II: -hold oral medications while in hospital -monitor BSGs -correction scale insulin while in hospital; to be adjusted as PO intake advanced Current Inpatient Medications: Current Inpatient Medications Medications (Trade) Dose Ordered Sig/Vivek Route Start Time Stop Time Status Last Admin Dose Admin Ondansetron HCl (Zofran Inj) 4 mg Q6H PRN IV 06/04/17 22:30 07/04/17 22:29 Sodium Chloride 1,000 ml @ 75 mls/hr [id number] IV 06/04/17 22:30 07/04/17 22:29 06/06/17 08:37 75 MLS/HR Morphine Sulfate (MoRPHine SULFATE INJ) 2 mg Q2H PRN IV 06/04/17 23:30 06/18/17 23:29 06/05/17 01:03 2 MG Glucose (Glucose 40% Gel) 15-30 GRAMS 15 GRAMS... UD PRN PO 06/04/17 23:30 07/04/17 23:29 Glucose (Glucose Chew Tab) 4-8 Tablets 4 Tabl... UD PRN PO 06/04/17 23:30 07/04/17 23:29 Dextrose (Dextrose 50% 50ML Syringe) 25-50ML OF 50% DW IV FOR... UD PRN IV 06/04/17 23:30 07/04/17 23:29 Glucagon (Glucagon Inj) 1 mg UD PRN SQ 06/04/17 23:30 07/04/17 23:29 Clopidogrel Bisulfate (plAVix TAB) 75 mg QAM PO 06/05/17 09:00 07/05/17 08:59 06/06/17 08:38 75 MG Bimatoprost (Lumigan 0.01%) 1 drops HS OP 06/05/17 21:00 07/05/17 20:59 06/05/17 20:31 1 DROPS Aspirin (Ecotrin Tab) 81 mg QAM PO 06/05/17 09:00 07/05/17 08:59 06/06/17 08:38 81 MG Ceftriaxone Sodium 1 gm/ Dextrose 50 ml @ 100 mls/hr Q24H IV 06/05/17 03:00 06/10/17 02:59 06/06/17 03:15 100 MLS/HR Atenolol (Tenormin Tab) 25 mg HS PO 06/06/17 21:00 07/06/17 20:59 Heparin Sodium (Porcine) (Heparin Sq 5000 Unit/0.5ml) 5,000 unit Q8 SQ 06/06/17 09:00 07/06/17 08:59 06/06/17 14:00 5,000 UNIT Diltiazem HCl (Cardizem Tab) 60 mg TID PO 10/9/17 21:00 07/05/17 20:59 06/06/17 14:00 60 MG Insulin Aspart (novoLOG ASPART) SLIDING SCALE If C... ACHS [place] 06/06/17 16:15 07/06/17 16:14
[2017-06-06] MEDS: BIMATOPROST 0.01% OP SOLN 2.5 ML BTL OP SCH (20:32)
[2017-06-06] MEDS ORDERED: COUGH DROP (SUGAR FREE) LOZ 24 LOZ/1 BOX ONE (20:34)
[2017-06-06] MEDS ORDERED: COUGH DROP (SUGAR FREE) LOZ 24 LOZ/1 BOX PO PRN (20:45)
[2017-06-07] MEDS ORDERED: ZOLPIDEM TARTRATE 5 MG TAB PO ONE (02:15)
[2017-06-07] MEDS: CEFTRIAXONE SOD INJ 1 GM in DEXTROSE 5% ADD-VANTAGE 50ML 50 ML IV SCH (03:24)
[2017-06-07 04:12] VITALS: BP 145/75; PULSE 72; TEMP 36.7; O2SAT 94
[2017-06-07] MEDS: HEPARIN SOD 5000 UNIT/0.5 ML CARP SQ SCH ×3 (05:51→21:16)
[2017-06-07 05:52] LABS: BASO % 0.2 %; BASO ABS # 0.01 K/uL (0-0.2); EOS % 1.4 %; HEMATOCRIT 27.8 % (37-47); IG% 0.2 %; LYMPH % 34.3 %; LYMPH ABS # 1.91 K/uL (1.2-3.4); MEAN CELL VOLUME 84.5 fL (80-100); MEAN CORPUSCULAR HEMOGLOBIN 27.1 pg (25-34); MEAN PLATELET VOLUME 8.7 fL (7.4-10.4); MONO % 9.9 %; PLATELET COUNT 209 K/uL (130-400); RED BLOOD COUNT 3.29 M/uL (4.2-5.4); WHITE BLOOD COUNT 5.57 K/uL (4.8-10.8)
[2017-06-07 06:23] LABS: BUN/CREATININE RATIO 16.9 (10-20); CALCIUM 8.1 mg/dl (8.5-10.1); CREATININE 0.64 mg/dl (0.60-1.20); MAGNESIUM 1.9 mg/dl (1.8-2.4); POTASSIUM 3.6 mmol/L (3.5-5.1)
[2017-06-07 06:44] LABS: COMPLETE YES
[2017-06-07 07:56] VITALS: BP 148/74; PULSE 74; TEMP 36.8; O2SAT 96
[2017-06-07] MEDS: ASPIRIN 81 MG ECTAB PO SCH (08:19)
[2017-06-07] MEDS: CLOPIDOGREL BISULFATE 75 MG TAB PO SCH (08:19)
[2017-06-07] MEDS: DILTIAZEM HCL 60 MG TAB PO SCH ×3 (08:19→21:14)
[2017-06-07] MEDS: INSULIN ASPART 100 UNITS/ML 3 ML PEN SC SCH ×4 (08:22→20:36)
[2017-06-07] MEDS: SODIUM CHLORIDE 0.9% 1000ML 1,000 ML IV SCH ×2 (10:00→23:20)
[2017-06-07 11:28] VITALS: BP 125/72; PULSE 84; TEMP 37; O2SAT 92
[2017-06-07 14:51] VITALS: BP 147/71; PULSE 79; TEMP 37.1; O2SAT 97
[2017-06-07 18:41] VITALS: BP 128/68; PULSE 81; TEMP 37.1; O2SAT 95
--- NOTE | 2017-06-07 19:02 | Progress Note ---
Medicine Progress Note Date & Time of Visit: Jun 07, 2017 at 19:02. Subjective Patient is doing better overall, she has been tolerating full liquids without difficulty. No abdominal pain with eating. Still passing flatus. Denies any new complaints. No overnight events noted. Objective Last 8 Hrs Date Time Temp Pulse Resp B/P (MAP) Pulse Ox O2 Delivery O2 Flow Rate FiO2 06/07/17 16:00 Room Air 06/07/17 14:51 37.1 79 18 147/71 (96) 97 Room Air 06/07/17 12:00 Room Air 06/07/17 11:28 37.0 84 16 125/72 (89) 92 Room Air Physical Exam: General: adult, appears stated age Head: atraumatic, normocephalic Eyes: PERRL, EOMI, anicteric Neck: supple, no JVD, no carotids bruits appreciated Lungs: clear to auscultation bilaterally; no chest wall pain/tenderness to palpation noted Heart: RR; loud MILLER murmur, no gallop, no rub appreciated, S1 and S2 auscultated Abdomen: soft, nontender, normal bowel sounds, no palpable masses, no notable hepatosplenomegaly Extremities: no edema, no calf tenderness Neuro: alert, oriented x 3; no facial palsy; no dysarthria; no acute focal deficits noted Skin: warm, dry, no rashes Laboratory Results: Last 24 Hours Test 06/06/17 20:09 06/07/17 05:28 06/07/17 06:57 06/07/17 11:20 Bedside Glucose 108 mg/dl 109 mg/dl 162 mg/dl White Blood Count 5.57 K/uL Red Blood Count 3.29 M/uL Hemoglobin 8.9 g/dL Hematocrit 27.8 % Mean Corpuscular Volume 84.5 fL Mean Corpuscular Hemoglobin 27.1 pg Mean Corpuscular Hemoglobin Concent 32.0 g/dl Platelet Count 209 K/uL Mean Platelet Volume 8.7 fL Neutrophils (%) (Auto) 54.0 % Lymphocytes (%) (Auto) 34.3 % Monocytes (%) (Auto) 9.9 % Eosinophils (%) (Auto) 1.4 % Basophils (%) (Auto) 0.2 % Neutrophils # (Auto) 3.01 K/uL Lymphocytes # (Auto) 1.91 K/uL Monocytes # (Auto) 0.55 K/uL Eosinophils # (Auto) 0.08 K/uL Basophils # (Auto) 0.01 K/uL RDW Standard Deviation 45.5 fL RDW Coefficient of Variation 14.7 % Immature Granulocyte % (Auto) 0.2 % Immature Granulocyte # (Auto) 0.01 K/uL Red Blood Cell Morphology Unremarkable Sodium Level 142 mmol/L Potassium Level 3.6 mmol/L Chloride Level 107 mmol/L Carbon Dioxide Level 29 mmol/L Anion Gap 6.0 mmol/L Blood Urea Nitrogen 11 mg/dl Creatinine 0.64 mg/dl Est Creatinine Clear Calc Drug Dose 73.7 ml/min Estimated GFR () 99.8 Estimated GFR (Non- 86.1 BUN/Creatinine Ratio 16.9 Random Glucose 122 mg/dl Calcium Level 8.1 mg/dl Magnesium Level 1.9 mg/dl Test 06/07/17 16:07 Bedside Glucose 104 mg/dl Assessment & Plan SMALL BOWEL OBSTRUCTION: -has had multiple episodes of SBO in the past -has had multiple abdominal surgeries in the past as well including appendectomy , hysterectomy, KOTA -passing flatus only -NG tube removed 06/06 -stopped IV fluids -hold PO medications except ASA, Plavix, Atenolol, Diltiazem -Surgery consulted, appreciate recommendations, diet advanced to clears-->full liquids-->tonight will increase to regular CAD: prior hx of CABG and recent PCI with DENISE to LAD 05/19/17 -no symptoms at present -EKG: RBBB -continued on ASA, Plavix, Atenolol, Diltiazem SEVERE AORTIC VALVE STENOSIS: -no signs of fluid overload -monitor fluid status closely -D/C IV fluids as taking adequate PO UTI: -urine culture grew E coli -UA positive -empirically started with rocephin which is continued DM TYPE II: -hold oral medications while in hospital -monitor BSGs -correction scale insulin while in hospital; to be adjusted as PO intake advanced Current Inpatient Medications: Current Inpatient Medications Medications (Trade) Dose Ordered Sig/Vivek Route Start Time Stop Time Status Last Admin Dose Admin Ondansetron HCl (Zofran Inj) 4 mg Q6H PRN IV 06/04/17 22:30 07/04/17 22:29 Sodium Chloride 1,000 ml @ 75 mls/hr [id number] IV 06/04/17 22:30 07/04/17 22:29 06/06/17 23:31 75 MLS/HR Morphine Sulfate (MoRPHine SULFATE INJ) 2 mg Q2H PRN IV 06/04/17 23:30 06/18/17 23:29 06/05/17 01:03 2 MG Glucose (Glucose 40% Gel) 15-30 GRAMS 15 GRAMS... UD PRN PO 06/04/17 23:30 07/04/17 23:29 Glucose (Glucose Chew Tab) 4-8 Tablets 4 Tabl... UD PRN PO 06/04/17 23:30 07/04/17 23:29 Dextrose (Dextrose 50% 50ML Syringe) 25-50ML OF 50% DW IV FOR... UD PRN IV 06/04/17 23:30 07/04/17 23:29 Glucagon (Glucagon Inj) 1 mg UD PRN SQ 06/04/17 23:30 07/04/17 23:29 Clopidogrel Bisulfate (plAVix TAB) 75 mg QAM PO 06/05/17 09:00 07/05/17 08:59 06/07/17 08:19 75 MG Bimatoprost (Lumigan 0.01%) 1 drops HS OP 06/05/17 21:00 07/05/17 20:59 06/06/17 20:32 1 DROPS Aspirin (Ecotrin Tab) 81 mg QAM PO 06/05/17 09:00 07/05/17 08:59 06/07/17 08:19 81 MG Ceftriaxone Sodium 1 gm/ Dextrose 50 ml @ 100 mls/hr Q24H IV 06/05/17 03:00 06/10/17 02:59 06/07/17 03:24 100 MLS/HR Atenolol (Tenormin Tab) 25 mg HS PO 06/06/17 21:00 07/06/17 20:59 06/06/17 20:32 25 MG Heparin Sodium (Porcine) (Heparin Sq 5000 Unit/0.5ml) 5,000 unit Q8 SQ 06/06/17 09:00 07/06/17 08:59 06/07/17 14:11 5,000 UNIT Diltiazem HCl (Cardizem Tab) 60 mg TID PO 06/05/17 21:00 11/8/17 20:59 06/07/17 14:11 60 MG Insulin Aspart (novoLOG ASPART) SLIDING SCALE If C... ACHS [place] 06/06/17 16:15 07/06/17 16:14 06/07/17 12:17 1 UNITS Menthol (Nice Donald) 1 donald PRN PRN PO 06/06/17 20:45 07/06/17 20:44
--- NOTE | 2017-06-07 19:02 | Surgery Progress Note ---
Surgery Progress Note Date of Service Jun 07, 2017. Subjective Post OP Day: HD # 3 + feeling well, + bowel movement, + flatus, + diet (regular diet), No complaints , No nausea, No vomiting Objective Vital Signs: Date Time Temp Pulse Resp B/P (MAP) Pulse Ox O2 Delivery O2 Flow Rate FiO2 06/07/17 16:00 Room Air 06/07/17 14:51 37.1 79 18 147/71 (96) 97 Room Air 06/07/17 12:00 Room Air 06/07/17 11:28 37.0 84 16 125/72 (89) 92 Room Air 06/07/17 08:00 Room Air 06/07/17 07:56 36.8 74 16 148/74 (98) 96 Room Air 06/07/17 04:12 36.7 72 20 145/75 (98) 94 Room Air 06/07/17 04:00 Room Air 06/07/17 00:01 Room Air 06/06/17 23:24 36.9 62 20 119/67 (84) 93 Room Air 06/06/17 20:00 Room Air General Appearance: WD/WN, no apparent distress Head: normocephalic, atraumatic Neck: trachea midline Respiratory/Chest: no respiratory distress, no accessory muscle use Abdomen: non tender, non distended, soft, no organomegaly, no pulsatile mass Laboratory Results: Results Past 24 Hours Test 06/06/17 20:09 06/07/17 05:28 06/07/17 06:57 06/07/17 11:20 Range/Units Bedside Glucose 108 109 162 70-90 mg/dl White Blood Count 5.57 4.8-10.8 K/uL Red Blood Count 3.29 4.2-5.4 M/uL Hemoglobin 8.9 12.0-16.0 g/dL Hematocrit 27.8 37-47 % Mean Corpuscular Volume 84.5 80-100 fL Mean Corpuscular Hemoglobin 27.1 25-34 pg Mean Corpuscular Hemoglobin Concent 32.0 32-36 g/dl Platelet Count 209 130-400 K/uL Mean Platelet Volume 8.7 7.4-10.4 fL Neutrophils (%) (Auto) 54.0 % Lymphocytes (%) (Auto) 34.3 % Monocytes (%) (Auto) 9.9 % Eosinophils (%) (Auto) 1.4 % Basophils (%) (Auto) 0.2 % Neutrophils # (Auto) 3.01 1.4-6.5 K/uL Lymphocytes # (Auto) 1.91 1.2-3.4 K/uL Monocytes # (Auto) 0.55 0.11-0.59 K/uL Eosinophils # (Auto) 0.08 0-0.5 K/uL Basophils # (Auto) 0.01 0-0.2 K/uL RDW Standard Deviation 45.5 36.4-46.3 fL RDW Coefficient of Variation 14.7 11.5-14.5 % Immature Granulocyte % (Auto) 0.2 % Immature Granulocyte # (Auto) 0.01 0.00-0.02 K/uL Red Blood Cell Morphology Unremarkable Sodium Level 142 136-145 mmol/L Potassium Level 3.6 3.5-5.1 mmol/L Chloride Level 107 98-107 mmol/L Carbon Dioxide Level 29 21-32 mmol/L Anion Gap 6.0 3-11 mmol/L Blood Urea Nitrogen 11 7-18 mg/dl Creatinine 0.64 0.60-1.20 mg/dl Est Creatinine Clear Calc Drug Dose 73.7 ml/min Estimated GFR () 99.8 Estimated GFR (Non- 86.1 BUN/Creatinine Ratio 16.9 10-20 Random Glucose 122 70-99 mg/dl Calcium Level 8.1 8.5-10.1 mg/dl Magnesium Level 1.9 1.8-2.4 mg/dl Test 06/07/17 16:07 Range/Units Bedside Glucose 104 70-90 mg/dl Assessment & Plan Partial SBO- resolved -vitals stable - no leukocytosis - passing flatus, + bowel movement - abdomen soft, nondistended, no further abdominal pain Plan: No surgical indication required Continue diet as tolerated Continue medical management Our services signing off Dr. Talbot has seen patient and agrees with above
[2017-06-07] MEDS ORDERED: GABAPENTIN 300 MG CAP PO SCH (21:00)
[2017-06-07] MEDS ORDERED: AMITRIPTYLINE HCL 25 MG TAB PO SCH (21:00)
[2017-06-07] MEDS ORDERED: ATORVASTATIN 40 MG TAB PO SCH (21:00)
[2017-06-07] MEDS: BIMATOPROST 0.01% OP SOLN 2.5 ML BTL OP SCH (21:13)
[2017-06-07 23:54] VITALS: BP 131/76; PULSE 69; TEMP 37.3; O2SAT 96
[2017-06-08] MEDS ORDERED: ACETAMINOPHEN 325 MG TAB PO PRN (00:15)
[2017-06-08] MEDS: CEFTRIAXONE SOD INJ 1 GM in DEXTROSE 5% ADD-VANTAGE 50ML 50 ML IV SCH (03:00)
[2017-06-08 04:18] VITALS: BP 132/73; PULSE 71; TEMP 36.7; O2SAT 96
[2017-06-08] MEDS: HEPARIN SOD 5000 UNIT/0.5 ML CARP SQ SCH (05:48)
[2017-06-08] MEDS ORDERED: LEVOTHYROXINE 25 MCG TAB PO SCH (06:00)
[2017-06-08 06:06] LABS: BASO % 0.2 %; BASO ABS # 0.01 K/uL (0-0.2); EOS % 1.6 %; IG% 0.4 %; LYMPH % 37.5 %; MEAN CELL VOLUME 83.3 fL (80-100); MEAN CORPUSCULAR HEMOGLOBIN 27.2 pg (25-34); MEAN CORPUSCULAR HGB CONC 32.6 g/dl (32-36); MEAN PLATELET VOLUME 8.8 fL (7.4-10.4); MONO % 8.6 %; NEUT % 51.7 %; PLATELET COUNT 227 K/uL (130-400); RED BLOOD COUNT 3.24 M/uL (4.2-5.4)
[2017-06-08 06:34] LABS: ANISOCYTOSIS PRESENT; COMPLETE YES
[2017-06-08 06:36] LABS: BUN/CREATININE RATIO 16.3 (10-20); CALCIUM 8.3 mg/dl (8.5-10.1); CREATININE 0.69 mg/dl (0.60-1.20); MAGNESIUM 1.8 mg/dl (1.8-2.4); POTASSIUM 3.6 mmol/L (3.5-5.1)
[2017-06-08 07:05] VITALS: BP 163/75; PULSE 69; TEMP 37; O2SAT 96
[2017-06-08] MEDS ORDERED: NURSING VERBAL MED ORDER ONE ×2 (07:30)
[2017-06-08] MEDS: INSULIN ASPART 100 UNITS/ML 3 ML PEN SC SCH (07:45)
[2017-06-08] MEDS: ASPIRIN 81 MG ECTAB PO SCH (07:50)
[2017-06-08] MEDS: CLOPIDOGREL BISULFATE 75 MG TAB PO SCH (07:52)
[2017-06-08] MEDS ORDERED: DOCUSATE SODIUM 100 MG CAP PO SCH (09:00)
[2017-06-08] MEDS ORDERED: GABAPENTIN 300 MG CAP PO SCH (09:00)
[2017-06-08] MEDS ORDERED: FLUTICASONE PROPIONATE NA SPR 16 GM BTL NAE SCH (09:00)
[2017-06-08] MEDS ORDERED: DILTIAZEM HCL (TIAzac) 180 MG CAPCR PO SCH (09:00)
--- NOTE | 2017-06-08 09:44 | Discharge Instructions ---
Discharge Instructions Date of Service Jun 08, 2017. Admission Reason for Admission: Sbo (Small Bowel Obstruction) Discharge Discharge Diagnosis / Problem: Small bowel obstruction Discharge Goals Goal(s): Therapeutic intervention Activity Recommendations Activity Limitations: resume your previous activity . Instructions / Follow-Up Instructions / Follow-Up Please see Dr. Carmona (covering for Roma) on June 15 at 2PM for hospital follow up Current Hospital Diet Patient's current hospital diet: Diabetes Type 2 Diet Discharge Diet Recommended Diet: Diabetes Type 2 Diet (Please eat small frequent meals, with adequate water intake throughout the day. ) Procedures Procedures Performed: NG tube Pending Studies Studies pending at discharge: no Laboratory Results Hemoglobin A1c Test 06/06/17 05:29 Range/Units Estimated Average Glucose 183 mg/dl Hemoglobin A1c 8.0 H 4.5-5.6 % Medical Emergencies . Who to Call and When: Medical Emergencies: If at any time you feel your situation is an emergency, please call 911 immediately. . Non-Emergent Contact Non-Emergency issues call your: Primary Care Provider . . "Provider Documentation" section prepared by Nia Simmons. . VTE Core Measure Inpt VTE Proph given/why not?: Enoxaparin (Lovenox)SQ
[2017-06-08 09:57] VITALS: BP 163/75; PULSE 69; TEMP 37; O2SAT 96
--- NOTE | 2017-06-10 17:27 | Discharge Summary ---
Discharge Summary Date of Service Jun 10, 2017. Discharge Summary Admission Date: Jun 04, 2017 at 19:56 Discharge Date: Jun 08, 2017 Discharge Disposition: Home Principal Diagnosis: SBO Medication Reconciliation Continued Medications: Amitriptyline HCl (Amitriptyline HCl) 25 Mg Tab 50 MG PO HS, #180 Aspirin (Aspirin Ec) 81 Mg Tab 81 MG PO QPM Atenolol (Tenormin) 25 Mg Tab 25 MG PO QPM, 0 Refills Atorvastatin (Lipitor) 80 Mg Tab 80 MG PO QPM, 0 Refills Bimatoprost (Lumigan) 0.01 % Gladys 1 DROPS OP HS for 30 Days, #2.5 ML 3 Refills Clopidogrel (Plavix) 75 Mg Tab 75 MG PO QAM, TAB Diltiazem Hcl Coated Beads (Cartia Xt) 180 Mg Cap 180 MG PO QPM, #90 Docusate Sodium (Colace) 100 Mg Cap 2 CAP PO DAILY, CAP Fluticasone Propionate (Fluticasone Propionate) 120 Sprays/6000 Mcg Inha 2 SPRAYS JAQUELIN QAM, #48 Gabapentin (Gabapentin) 300 Mg Cap 300 MG PO QAM Gabapentin (Neurontin) 300 Mg Cap 300 MG PO QPM, CAP Glipizide (Glipizide) 5 Mg Tab 5 MG PO BID, #180 Levothyroxine Sodium (Synthroid) 25 Mcg Tab 25 MCG PO QAM Metformin Hcl (Glucophage) 1,000 Mg Tab 1000 MG PO BID, #180 Nitroglycerin (Nitrostat) 0.4 Mg Tab 0.4 MG UT PRN, 0 Refills NEEDED FOR CHEST PAIN : ONE TABLET UNDER THE TONGUE EVERY 5 MINUTES UP TO 3 DOSES. Omeprazole (Omeprazole) 20 Mg Tab 20 MG PO BIDM Oxybutynin Chloride (Oxybutynin Chloride) 5 Mg Tab 5 MG PO TID Probiotic Product (Probiotic) 1 Cap Cap 1 CAP PO QAM Admission Information HPI (per Admitting provider): 77 yo F with a h/o SBO in the past including her last hospitalization in December 2016 presents with two days of vomiting and intolerance of PO. She reports this beginning last night after a meal and it was associated wtih abdominal pain that appears to be generalized but concentrated in the RLQ. She had the SBO in December which was managed nonoperatively and she also reports an episode of nausea and vomiting with abdominal pain between then and now which resolved spontaneously at home. She has a history of multiple abdominal surgeries in the past. She also has a history of severe with CAD s/p PCI of the LAD and RCA in 2001, she has known PVD with bilateral CEA, and COPD with use of oxygen at night. On recent cardiology follow-up visit, she was noted to have some exertional fatigue and exertional dyspnea. She underwent a heart cath on revealing an 80% blockage in the prox LAD and RCA with 60% stenosis. She was referred to tertiary care for evaluation and recently admitted to [facility] on 05/19 for one DENISE placed to the LAD for an 80% blockage. In the ER, CT scan reveals a high-grade SBO and NGT was placed with morphine given and the patient was feeling much better per her report. She was seen by Gen Surg who feels there is no acute surgical indication at this time and agrees with conservative measures for now. The suction canister was noted to be completely full of normal-appearing vomitus. Physical Exam (per Admitting): General Appearance: WD/WN, no apparent distress Head: normocephalic, atraumatic ENT: normal ENT inspection, hearing grossly normal, + pertinent finding ( NGT in place to suction with normal vomitus in canister, dry mucous membranes) Neck: supple, no adenopathy, trachea midline Respiratory/Chest: chest non-tender, lungs clear, normal breath sounds, no respiratory distress, no accessory muscle use Cardiovascular: regular rate, rhythm, no edema, no gallop, no JVD, normal peripheral pulses, + systolic murmur Abdomen/GI: normal bowel sounds, soft, + tenderness (generalized) Back: normal inspection, no CVA tenderness Extremities/Musculoskelatal: normal inspection, no pedal edema Neurologic/Psych: no motor/sensory deficits, alert, normal mood/affect, oriented x 3 Skin: normal color, warm/dry, no rash Hospital Course SMALL BOWEL OBSTRUCTION: -has had multiple episodes of SBO in the past -has had multiple abdominal surgeries in the past as well including appendectomy , hysterectomy, KOTA -passing flatus only -NG tube removed 06/06 -stopped IV fluids -hold PO medications except ASA, Plavix, Atenolol, Diltiazem -Surgery consulted, appreciate recommendations, diet advanced to clears-->full liquids-->to regular; tolerating regular without any pain/discomfort CAD: prior hx of CABG and recent PCI with DENISE to LAD 05/19/17 -no symptoms at present -EKG: RBBB -continued on ASA, Plavix, Atenolol, Diltiazem SEVERE AORTIC VALVE STENOSIS: -no signs of fluid overload -monitor fluid status closely -stopped IV fluids as taking adequate PO UTI: -urine culture grew E coli -UA positive -asymptomatic -empirically started with rocephin x3 days DM TYPE II: -hold oral medications while in hospital; resume upon discharge -monitor BSGs -correction scale insulin while in hospital; to be adjusted as PO intake advanced Physical Exam on day of discharge: General: adult, appears older than stated age Head: atraumatic, normocephalic Eyes: PERRL, EOMI, anicteric Neck: supple, no JVD, no carotids bruits appreciated Lungs: clear to auscultation bilaterally; no chest wall pain/tenderness to palpation noted Heart: RR; loud MILLER, no gallop, no rub appreciated, S1 and S2 auscultated Abdomen: soft, nontender, normal bowel sounds, no palpable masses, no notable hepatosplenomegaly Extremities: no edema, no calf tenderness Neuro: alert, oriented x 3; no facial palsy; no dysarthria; no acute focal deficits noted Skin: warm, dry, no rashes Total time spent on discharge = 39 This includes examination of the patient, discharge planning, medication reconciliation, and communication with other providers. Discharge Instructions See patient instructions
== END 2017-06-08 10:20 | disposition home or self-care (01) | DRG 389 ==
LOC: C.EDB 14:46 → C.MSW 19:56 → ENRESERV 20:07 → C.2T 06-05 10:49
PROVIDERS: ADMIT Hospitalist; ATTEND Internal Medicine
DX: K56.609 Unspecified intestinal obstruction, unspecified as to partial versus complete obstruction (principal); N39.0 Urinary tract infection, site not specified; E11.40 Type 2 diabetes mellitus with diabetic neuropathy, unspecified; I10 Essential (primary) hypertension; I25.10 Atherosclerotic heart disease of native coronary artery without angina pectoris; J44.9 Chronic obstructive pulmonary disease, unspecified; K21.9 Gastro-esophageal reflux disease without esophagitis; H40.9 Unspecified glaucoma; E78.5 Hyperlipidemia, unspecified; E03.9 Hypothyroidism, unspecified; G25.81 Restless legs syndrome; I35.0 Nonrheumatic aortic (valve) stenosis; Z96.642 Presence of left artificial hip joint; I73.9 Peripheral vascular disease, unspecified; Z96.653 Presence of artificial knee joint, bilateral; Z95.5 Presence of coronary angioplasty implant and graft; Z83.3 Family history of diabetes mellitus; B96.20 Unspecified Escherichia coli [E. coli] as the cause of diseases classified elsewhere

== ENCOUNTER 2017-09-26 12:56 | Inpatient (IN) | payer OTHER ==
[~2017-09-26] VITALS: Ht 160 cm; Wt 81.1 kg
[~2017-09-26 12:56] MED LIST changes: +ACET-1256 PO; +CLOP1TAB15 PO; -CYAN100020 PO; -CYAN100T PO; +DIPH1TAB87; +GABA-1219 PO; -GABA1CAP4 PO; +ISOS60TA25 PO; +MISCCAP80 PO; +NRN/300 PO
[2017-09-26] MEDS ORDERED: SODIUM CHLORIDE 0.9% 1000ML 500 ML IV STA (13:29)
[2017-09-26] MEDS ORDERED: ACETAMINOPHEN 500 MG TAB PO STA (13:29)
[2017-09-26] MEDS ORDERED: CEFTRIAXONE SOD INJ 1 GM ADDVIAL IV STA (13:29)
[2017-09-26] MEDS ORDERED: METHYLPREDNISOLONE 125 MG VIAL IV STA (13:32)
[2017-09-26] MEDS ORDERED: ALBUT/IPRATROP 3MG/0.5MG NEB 3 ML VIAL INH STA (13:32)
--- NOTE | 2017-09-26 13:40 | EMERGENCY ROOM VISIT NOTE ---
History Report prepared by Michaela: Jaime Walter Under the Supervision of: Dr. Zachary Locke M.D. First contact with patient: 13:25 Chief Complaint: SHORTNESS OF BREATH Stated Complaint: BREATHING DIFFICULTY History of Present Illness The patient is a 77 year old female who presents to the Emergency Room with complaints of worsening shortness of breath that began 5 days ago. She has a past medical history of asthma. Over these past couple of days, she has been feeling flu-like symptoms such as cough and congestion that have worsened significantly over the past two days. She has been febrile, temperature as high as 102.6 F with chills and diaphoresis. She took Tylenol which brought it down to the 99's. She presented to her PCP this morning and was found to have an oxygen saturation in the low 70's. She was placed on oxygen and given a DuoNeb. She states that these helped her symptoms. She was then sent to the ER for further evaluation. She denies any abdominal pain, nausea, vomiting, or diarrhea. She notes she took Tylenol early this morning. She has had positive sick contacts, but did receive her influenza immunization. Source of History: patient Onset: 5 days ago Position: other (Respiratory System) Symptom Intensity: moderate Quality: other (Shortness of breath) Timing: worsening Modifying Factors (Relieving): oxygen, other (DuoNeb) Associated Symptoms: + fevers, + chills, + diaphoresis, + cough, No nausea, No vomiting, No abdominal pain, No diarrhea Review of Systems See HPI for pertinent positives & negatives. A total of 10 systems reviewed and were otherwise negative. Past Medical & Surgical Medical Problems: (1) Allergic rhinitis (2) ASCVD (arteriosclerotic cardiovascular disease) (3) Asthma exacerbation (4) Carotid stenosis (5) COPD (chronic obstructive pulmonary disease) (6) Cystocele (7) Diabetes mellitus, type II (8) Diabetic neuropathy (9) GERD (gastroesophageal reflux disease) (10) Glaucoma (11) Hiatal hernia (12) Hyperlipidemia (13) Hypertension (14) Hypothyroidism (15) Incontinence of urine (16) Osteoarthritis (17) Rectocele (18) Restless leg syndrome (19) Severe aortic stenosis (20) Vocal cord dysfunction Surgical Problems: (1) History of back surgery (2) S/P carotid endarterectomy (3) S/P carpal tunnel release (4) S/P lumpectomy, left breast (5) S/P BOAZ-BSO (6) Status post coronary artery stent placement (7) Status post left hip replacement (8) Status post total knee replacement, left (9) Status post total knee replacement, right Family History Diabetes mellitus FH: heart disease Social History Smoking Status: Never Smoker Drug Use: none Marital Status: Housing Status: lives with family Occupation Status: retired Current/Historical Medications Scheduled Amitriptyline HCl (Amitriptyline HCl), 50 MG PO HS Aspirin (Aspirin Ec), 81 MG PO QPM Atenolol (Tenormin), 25 MG PO QPM Atorvastatin (Lipitor), 1 TAB PO DAILY Bimatoprost (Lumigan), 1 DROPS OP HS Clopidogrel (Plavix), 75 MG PO QAM Diltiazem Hcl Coated Beads (Cartia Xt), 180 MG PO QPM Diphenhydramine Hcl (Benadryl Allergy), 1 TAB DAILY Docusate Sodium (Colace), 2 CAP PO DAILY Fluticasone Propionate (Fluticasone Propionate), 2 SPRAYS JAQUELIN QAM Gabapentin (Gabapentin), 300 MG PO QAM Gabapentin (Neurontin), 600 MG PO QPM Glipizide (Glipizide), 5 MG PO BID Isosorbide Mononitrate Ext Rel (Imdur Ext Rel), 60 MG PO QAM Levothyroxine Sodium (Synthroid), 25 MCG PO QAM Metformin Hcl (Glucophage), 1,000 MG PO BID Nitroglycerin (Nitrostat), 0.4 MG UT PRN Omeprazole (Omeprazole), 20 MG PO BIDM Oxybutynin Chloride (Oxybutynin Chloride), 5 MG PO TID Probiotic Product (Probiotic), 1 CAP PO QAM Scheduled PRN Acetaminophen (Tylenol), 1,000 MG PO Q6 PRN for Pain Tramadol (Ultram), 50 MG PO Q6 PRN for Pain Allergies Coded Allergies: Carbamazepine (Verified Allergy, Unknown, RASH, 09/26/17) Oxaprozin (Verified Allergy, Unknown, RASH/HIVES, 09/26/17) Valproic Acid (Verified Allergy, Unknown, HEAD-TOE RASH, 09/26/17) Prednisone (Verified Adverse Reaction, Unknown, ELEVATION OF SUGARS, ) PATIENT HAS GLAUCOMA BOTH EYES - UNABLE TO TAKE PREDNISONE Physical Exam Vital Signs Date Time Temp Pulse Resp B/P (MAP) Pulse Ox O2 Delivery O2 Flow Rate FiO2 09/26/17 15:21 93 20 140/110 93 Nasal Cannula 3.0 09/26/17 13:54 95 Ambu-Bag 3.0 09/26/17 13:44 95 Nasal Cannula 3.0 09/26/17 13:04 88 09/26/17 13:01 95 Nasal Cannula 3.0 09/26/17 13:01 37.6 89 22 151/65 95 Nasal Cannula Physical Exam GENERAL: Patient is in no acute distress. HEENT: No acute trauma, normocephalic atraumatic, mucous membranes moist, no nasal congestion, no scleral icterus. NECK: No stridor, no adenopathy, no meningismus, trachea is midline. LUNGS: Wet cough noted. Significantly diminished breath sounds bilaterally. Breath sounds are equal. Bilateral wheezing and crackles noted. HEART: 3/6 systolic murmur. Regular rate and rhythm. ABDOMEN: Soft, nontender, bowel sounds positive, no hernias, no peritonitis. EXTREMITIES: No cyanosis or edema, full range of motion of all the joints without pain or difficulty, no signs for acute trauma. NEUROLOGIC: Oriented x 3, no acute motor or sensory deficits, no focal weakness. SKIN: No rash, no jaundice, no diaphoresis. Medical Decision & Procedures ER Provider Diagnostic Interpretation: Radiology results as stated below per my review and radiologist interpretation: CHEST ONE VIEW PORTABLE CLINICAL HISTORY: 77 years-old Female presenting with EVALUATE RESPIRATORY DISTRESS.DYSPNEA. TECHNIQUE: Portable upright AP view of the chest was obtained. COMPARISON: 06/04/2017. FINDINGS: Atherosclerosis of aortic arch. Cardiac silhouette enlarged. Mitral annular calcification may be present. Mild bronchial wall thickening may be present Lungs and pleural spaces otherwise clear. Degenerative changes of the thoracic spine. Upper abdomen normal. IMPRESSION: 1. Mild bronchial wall thickening may be present, which could suggest bronchitis. 2. Cardiomegaly. Electronically signed by: Alfredo Sanders M.D. 09/26/2017 1:52 PM Dictated Date/Time: 09/26/2017 1:[address] ANGIOGRAM OF THE CHEST CLINICAL HISTORY: Dyspnea. COMPARISON STUDY: Chest x-ray dated 09/26/2017. Chest CT scans dated 03/04/2013 and 04/24/2010. TECHNIQUE: Following the IV administration of 96 cc of Optiray 320, CT angiogram of the chest was performed from the upper abdomen to the thoracic inlet utilizing the pulmonary embolus protocol. Images are reviewed in the axial, sagittal, and coronal planes. 3-D MIPS images are created and assessed. IV contrast was administered without complication. A dose lowering technique was utilized adhering to the principles of ALARA. CT DOSE: 361.82 mGy.cm FINDINGS: Thyroid: Imaged portions of the thyroid gland are normal in size and attenuation. Thoracic aorta: There is atherosclerotic calcification of the thoracic aorta, which is normal in caliber and demonstrates standard 3-vessel arch anatomy. No dissection is seen. Pulmonary vasculature: The main pulmonary arteries are dilated suggesting pulmonary artery hypertension. There are no filling defects identified in main, lobar, or segmental pulmonary branches to suggest pulmonary embolus. Heart: The heart is enlarged and without pericardial effusion. The coronary arteries and mitral annulus are densely calcified. Lungs and pleural spaces: Evaluation of the lung parenchyma is modestly degraded by motion artifact. Layering secretions are present within the left mainstem bronchus. The trachea appears clear. There is patchy airspace consolidation in the left lower lobe and trace left pleural effusion. Minimal patchy consolidation is also seen at the right lung base. The upper lobes are clear. Mediastinum: There are numerous subcentimeter mediastinal lymph nodes. These are not pathologically enlarged by size criteria. Ronna: There are subcentimeter hilar lymph nodes. Axillae: There is no axillary lymphadenopathy. Upper abdomen: Partially visualized upper abdominal viscera is within normal limits. Skeletal structures: The skeletal structures are osteopenic. Mild degenerative change is noted throughout the thoracic spine. No lytic or blastic bony lesions are seen. IMPRESSION: 1. There is no evidence of pulmonary embolus in the main, lobar, or segmental pulmonary arteries. 2. There is patchy airspace consolidation present at both lung bases, left greater than right. The appearance is consistent with pneumonia/aspiration pneumonitis. Radiographic follow-up to resolution is recommended. Follow-up should include both PA and lateral views. 3. Cardiomegaly. 4. Prominent mediastinal and hilar lymph nodes are likely on a reactive basis. 5. Additional findings as above. Electronically signed by: Zachary Ignacio M.D. 09/26/2017 4:35 PM Dictated Date/Time: 09/26/2017 4:28 PM Laboratory Results 09/26/17 13:55 Red Blood Count 3.64, Mean Corpuscular Volume 85.4, Mean Corpuscular Hemoglobin 27.2, Mean Corpuscular Hemoglobin Concent 31.8, Mean Platelet Volume 8.7, Neutrophils (%) (Auto) 58.9, Lymphocytes (%) (Auto) 33.8, Monocytes (%) (Auto) 6.7, Eosinophils (%) (Auto) 0.0, Basophils (%) (Auto) 0.4, Neutrophils # (Auto) 2.74, Lymphocytes # (Auto) 1.57, Monocytes # (Auto) 0.31, Eosinophils # (Auto) 0.00, Basophils # (Auto) 0.02 09/26/17 13:55 Test 09/26/17 13:52 09/26/17 13:55 Influenza Type A Antigen Neg for Influ A (NEG) Influenza Type B Antigen Neg for Influ B (NEG) White Blood Count 4.65 K/uL (4.8-10.8) Red Blood Count 3.64 M/uL (4.2-5.4) Hemoglobin 9.9 g/dL (12.0-16.0) Hematocrit 31.1 % (37-47) Mean Corpuscular Volume 85.4 fL (80-100) Mean Corpuscular Hemoglobin 27.2 pg (25-34) Mean Corpuscular Hemoglobin Concent 31.8 g/dl (32-36) Platelet Count 217 K/uL (130-400) Mean Platelet Volume 8.7 fL (7.4-10.4) Neutrophils (%) (Auto) 58.9 % Lymphocytes (%) (Auto) 33.8 % Monocytes (%) (Auto) 6.7 % Eosinophils (%) (Auto) 0.0 % Basophils (%) (Auto) 0.4 % Neutrophils # (Auto) 2.74 K/uL (1.4-6.5) Lymphocytes # (Auto) 1.57 K/uL (1.2-3.4) Monocytes # (Auto) 0.31 K/uL (0.11-0.59) Eosinophils # (Auto) 0.00 K/uL (0-0.5) Basophils # (Auto) 0.02 K/uL (0-0.2) RDW Standard Deviation 50.8 fL (36.4-46.3) RDW Coefficient of Variation 16.1 % (11.5-14.5) Immature Granulocyte % (Auto) 0.2 % Immature Granulocyte # (Auto) 0.01 K/uL (0.00-0.02) Prothrombin Time 11.0 SECONDS (9.0-12.0) Prothromb Time International Ratio 1.0 (0.9-1.1) Activated Partial Thromboplast Time 31.0 SECONDS (21.0-31.0) Partial Thromboplastin Ratio 1.2 Anion Gap 7.0 mmol/L (3-11) Est Creatinine Clear Calc Drug Dose 50.9 ml/min Estimated GFR () 67.8 Estimated GFR (Non- 58.5 BUN/Creatinine Ratio 15.9 (10-20) Lactic Acid Level 2.0 mmol/L (0.4-2.0) Calcium Level 8.3 mg/dl (8.5-10.1) Magnesium Level 1.3 mg/dl (1.8-2.4) Total Bilirubin 0.3 mg/dl (0.2-1) Aspartate Amino Transf (AST/SGOT) 15 U/L (15-37) Alanine Aminotransferase (ALT/SGPT) 15 U/L (12-78) Alkaline Phosphatase 51 U/L (45-117) Troponin I < 0.015 ng/ml (0-0.045) Total Protein 6.9 gm/dl (6.4-8.2) Albumin 3.4 gm/dl (3.4-5.0) Globulin 3.5 gm/dl (2.5-4.0) Albumin/Globulin Ratio 1.0 (0.9-2) Laboratory results reviewed by me. Medications Administered Medications (Trade) Dose Ordered Sig/Vivek Route Start Time Stop Time Status Last Admin Dose Admin Sodium Chloride 500 ml @ 999 mls/hr Q31M STAT IV 09/26/17 13:29 09/26/17 13:59 DC 09/26/17 13:48 999 MLS/HR Ceftriaxone Sodium (Rocephin Inj) 1 gm NOW STAT IV 09/26/17 13:29 09/26/17 13:32 DC 09/26/17 14:25 1 GM Acetaminophen (Tylenol Tab) 1,000 mg NOW STAT PO 09/26/17 13:29 09/26/17 13:32 DC 09/26/17 13:48 1,000 MG Albuterol/ Ipratropium (Duoneb) 3 ml NOW STAT INH 09/26/17 13:32 09/26/17 13:35 DC 09/26/17 13:48 3 ML Methylprednisolone Sodium Succinate (Solu-Medrol IV) 80 mg NOW STAT IV 09/26/17 13:32 09/26/17 13:35 DC 09/26/17 13:47 80 MG Magnesium Sulfate (Magnesium Sulfate) 2 gm NOW STAT IV 09/26/17 15:10 09/26/17 15:11 DC 09/26/17 15:46 2 GM ECG Indication: SOB/dyspnea Rate (beats per minute): 88 Rhythm: normal sinus Findings: RBBB, no acute ischemic change, no ectopy Change: ECG interpreted by me. ED Course 1325: The patient was evaluated in room C2. A complete history and physical exam was performed. 1329: Ordered Tylenol Tab 1000 mg PO, Rocephin Inj 1 gm IV, Sodium Chloride 500 ml @ 999 mls/hr IV 1332: Ordered Solu-Medrol IV 80 mg IV, DuoNeb 3 ml INH 1510: Ordered Magnesium Sulfate 2 gm IV 1516: I updated the patient and her family at this time on her results and plan. She is agreeable. 1542: Upon reexamination the patient is resting. I discussed results and treatment plan with the patient. She verbalizes agreement and understanding. I spoke with Emmanuelle Tony the [facility] Hospitalist. We discussed the patient's results and findings. The patient will be evaluated by her for further management. Medical Decision Differential diagnosis includes but is not limited to bronchitis, pneumonia, influenza, bronchospasm, exacerbation of asthma, CHF, anemia, and PA. There is no leukocytosis. Patient is anemic but this is baseline looking back at previous testing. Magnesium quite low at 1.3. No kidney failure, no hepatitis. EKG shows a normal sinus rhythm with a right bundle branch block, no acute ischemia. Cardiac enzyme testing 1 is not consistent with acute cardiac injury. Chest film does not show pneumonia, pneumothorax or CHF. Influenza testing is negative. Blood cultures are pending. Lactic acid level is not elevated making sepsis less likely. The patient received a DuoNeb, IV Solu-Medrol and oral Tylenol. She was given IV ceftriaxone and IV magnesium. Because of concerns for possible PE, a chest CT was done. There is no PE but pneumonia was suspected. The patient presents hypoxic with an O2 saturation reported to be in the 70s in the outpatient office. She has done well with supplemental O2. Admission/ observation is warranted for this pneumonia. I spoke to the patient, I talked with case management. The on-call hospitalist was consulted. Medication Reconcilliation Current Medication List: was personally reviewed by me Blood Pressure Screening Patient's blood pressure: Elevated blood pressure Referred to the hospitalist Consults Time Called: 1540 Consulting Physician: Emmanuelle Bañuelos Hospitalist Returned Call: [phone] Discussed the patient's case. The patient will be evaluated for further management. Impression Primary Impression: Hypoxia Additional Impressions: Pneumonia Wheezing Fever Scribe Attestation The scribe's documentation has been prepared under my direction and personally reviewed by me in its entirety. I confirm that the note above accurately reflects all work, treatment, procedures, and medical decision making performed by me. Departure Information Dispostion Being Evaluated By Hospitalist Referrals Ben Brandon D.O. (PCP) Patient Instructions My [facility] Problem Qualifiers
--- NOTE | 2017-09-26 13:53 | DIAGNOSTIC IMAGING REPORT ---
CHEST ONE VIEW PORTABLE CLINICAL HISTORY: 77 years-old Female presenting with EVALUATE RESPIRATORY DISTRESS.DYSPNEA. TECHNIQUE: Portable upright AP view of the chest was obtained. COMPARISON: 06/04/2017. FINDINGS: Atherosclerosis of aortic arch. Cardiac silhouette enlarged. Mitral annular calcification may be present. Mild bronchial wall thickening may be present Lungs and pleural spaces otherwise clear. Degenerative changes of the thoracic spine. Upper abdomen normal. IMPRESSION: 1. Mild bronchial wall thickening may be present, which could suggest bronchitis. 2. Cardiomegaly. Electronically signed by: Alfredo Sanders M.D. 09/26/2017 1:52 PM Dictated Date/Time: 09/26/2017 1:50 PM
[2017-09-26 14:21] LABS: BASO % 0.4 %; BASO ABS # 0.02 K/uL (0-0.2); HEMATOCRIT 31.1 % (37-47); HEMOGLOBIN 9.9 g/dL (12.0-16.0); IG# 0.01 K/uL (0.00-0.02); LYMPH % 33.8 %; LYMPH ABS # 1.57 K/uL (1.2-3.4); MEAN CELL VOLUME 85.4 fL (80-100); MEAN CORPUSCULAR HEMOGLOBIN 27.2 pg (25-34); MEAN CORPUSCULAR HGB CONC 31.8 g/dl (32-36); MEAN PLATELET VOLUME 8.7 fL (7.4-10.4); MONO % 6.7 %; MONO ABS # 0.31 K/uL (0.11-0.59); NEUT % 58.9 %; NEUT ABS # 2.74 K/uL (1.4-6.5); PLATELET COUNT 217 K/uL (130-400); RED CELL DISTRIBUTION WIDTH CV 16.1 % (11.5-14.5); RED CELL DISTRIBUTION WIDTH SD 50.8 fL (36.4-46.3); WHITE BLOOD COUNT 4.65 K/uL (4.8-10.8)
[2017-09-26 14:44] LABS: ALBUMIN 3.4 gm/dl (3.4-5.0); ALT/SGPT 15 U/L (12-78); AST/SGOT 15 U/L (15-37); BLOOD UREA NITROGEN 15 mg/dl (7-18); CALCIUM 8.3 mg/dl (8.5-10.1); CARBON DIOXIDE 31 mmol/L (21-32); CREATININE 0.94 mg/dl (0.60-1.20); GLUCOSE 105 mg/dl (70-99); POTASSIUM 3.7 mmol/L (3.5-5.1); SODIUM 136 mmol/L (136-145)
[2017-09-26 14:49] LABS: ALKALINE PHOSPHATASE 51 U/L (45-117); TOTAL PROTEIN 6.9 gm/dl (6.4-8.2)
[2017-09-26 14:50] LABS: INFLUENZA B ANTIGEN Neg for Influ B (NEG)
[2017-09-26] MEDS ORDERED: MAGNESIUM SULFATE 1GM / D5W 1 GM BAG IV STA (15:10)
[2017-09-26] MEDS ORDERED: OPTIRAY 320 IV PRN (15:30)
--- NOTE | 2017-09-26 16:36 | DIAGNOSTIC IMAGING REPORT ---
CT ANGIOGRAM OF THE CHEST CLINICAL HISTORY: Dyspnea. COMPARISON STUDY: Chest x-ray dated 09/26/2017. Chest CT scans dated 03/04/2013 and 04/24/2010. TECHNIQUE: Following the IV administration of 96 cc of Optiray 320, CT angiogram of the chest was performed from the upper abdomen to the thoracic inlet utilizing the pulmonary embolus protocol. Images are reviewed in the axial, sagittal, and coronal planes. 3-D MIPS images are created and assessed. IV contrast was administered without complication. A dose lowering technique was utilized adhering to the principles of ALARA. CT DOSE: 361.82 mGy.cm FINDINGS: Thyroid: Imaged portions of the thyroid gland are normal in size and attenuation. Thoracic aorta: There is atherosclerotic calcification of the thoracic aorta, which is normal in caliber and demonstrates standard 3-vessel arch anatomy. No dissection is seen. Pulmonary vasculature: The main pulmonary arteries are dilated suggesting pulmonary artery hypertension. There are no filling defects identified in main, lobar, or segmental pulmonary branches to suggest pulmonary embolus. Heart: The heart is enlarged and without pericardial effusion. The coronary arteries and mitral annulus are densely calcified. Lungs and pleural spaces: Evaluation of the lung parenchyma is modestly degraded by motion artifact. Layering secretions are present within the left mainstem bronchus. The trachea appears clear. There is patchy airspace consolidation in the left lower lobe and trace left pleural effusion. Minimal patchy consolidation is also seen at the right lung base. The upper lobes are clear. Mediastinum: There are numerous subcentimeter mediastinal lymph nodes. These are not pathologically enlarged by size criteria. Ronna: There are subcentimeter hilar lymph nodes. Axillae: There is no axillary lymphadenopathy. Upper abdomen: Partially visualized upper abdominal viscera is within normal limits. Skeletal structures: The skeletal structures are osteopenic. Mild degenerative change is noted throughout the thoracic spine. No lytic or blastic bony lesions are seen. IMPRESSION: 1. There is no evidence of pulmonary embolus in the main, lobar, or segmental pulmonary arteries. 2. There is patchy airspace consolidation present at both lung bases, left greater than right. The appearance is consistent with pneumonia/aspiration pneumonitis. Radiographic follow-up to resolution is recommended. Follow-up should include both PA and lateral views. 3. Cardiomegaly. 4. Prominent mediastinal and hilar lymph nodes are likely on a reactive basis. 5. Additional findings as above. Electronically signed by: Zachary Ignacio M.D. 09/26/2017 4:35 PM Dictated Date/Time: 09/26/2017 4:28 PM
[2017-09-26] MEDS ORDERED: TRAMADOL HCL 50 MG TAB PO PRN (17:00)
[2017-09-26] MEDS ORDERED: LEVALBUTEROL/IPRATROPIUM NEB INH PRN (17:00)
[2017-09-26] MEDS ORDERED: NITROGLYCERIN 0.4 MG SL PER TAB CHARGE UT PRN (17:00)
[2017-09-26] MEDS ORDERED: GLUCOSE 10 TABS/TUBE PO PRN (17:15)
[2017-09-26] MEDS ORDERED: GLUCOSE 40% GEL 15 GM TUBE PO PRN (17:15)
[2017-09-26] MEDS ORDERED: DEXTROSE 50% 50 ML SYR IV PRN (17:15)
[2017-09-26] MEDS ORDERED: GLUCAGON FOR INJ 1 MG VIAL SQ PRN (17:15)
[2017-09-26] MEDS ORDERED: LEVALBUTEROL 1.25MG/0.5ML NEB INH PRN (18:30)
[2017-09-26] MEDS ORDERED: ACETAMINOPHEN 500 MG TAB PO PRN (18:30)
[2017-09-26] MEDS ORDERED: IPRATROPIUM BROMIDE NEB SOLN 0.02% 2.5 ML VIAL INH PRN (18:30)
[2017-09-26 18:57] VITALS: BP 156/75; PULSE 89; TEMP 37.1; O2SAT 95; BMI 30.9
--- NOTE | 2017-09-26 19:11 | History and Physical ---
History & Physical Date & Time of Service: Sep 26, 2017 at 17:08 Chief Complaint: Acute Bronchitis, Asthma Exacerbation, Hypoxia Primary Care Physician: Ben Brandon D.O. History of Present Illness Source: patient, family (, son and daughter at bedside), clinic records , hospital records This is a 77yo F with a PMH of CAD (s/p stent), DM II, h/o asthma and laryngospasm, GERD, HLD and hypothyroidism who presents with worsening SOB x 5 days. Patient began to have flu symptoms last week, including rhinorrhea, chills , cough, headache and malaise, Two days ago, patient started to feel unable to catch her breath at rest and also reports a fever of 102.6. Took tylenol for fever. Went to see her PCP earlier today and was found to have an O2 saturation in the 70s. Was sent by ambulance to ED for further evaluation of hypoxia. States that she continues to have SOB, cough and wheezing. Denies fever,chills, lightheadedness, headache, visual changes, productive cough, palpitations, chest pain, abd pain, nausea, vomiting, dysuria, diarrhea, constipation or LE swelling. Wears 2.5L NC O2 at night. Past Medical/Surgical History Medical Problems: (1) Allergic rhinitis Status: Chronic (2) ASCVD (arteriosclerotic cardiovascular disease) Status: Chronic (3) Carotid stenosis Status: Chronic (4) COPD (chronic obstructive pulmonary disease) Status: Chronic (5) Cystocele Status: Chronic (6) Diabetes mellitus, type II Status: Chronic (7) Diabetic neuropathy Status: Chronic (8) GERD (gastroesophageal reflux disease) Status: Chronic (9) Glaucoma Status: Chronic (10) Hiatal hernia Status: Chronic (11) Hyperlipidemia Status: Chronic (12) Hypertension Status: Chronic (13) Hypothyroidism Status: Chronic (14) Incontinence of urine Status: Chronic (15) Osteoarthritis Status: Chronic (16) Rectocele Status: Chronic (17) Restless leg syndrome Status: Chronic (18) Severe aortic stenosis Status: Chronic (19) Vocal cord dysfunction Status: Chronic Surgical Problems: (1) History of back surgery Status: Chronic (2) S/P carotid endarterectomy Status: Chronic (3) S/P carpal tunnel release Status: Chronic (4) S/P lumpectomy, left breast Status: Chronic (5) S/P BOAZ-BSO Status: Chronic (6) Status post coronary artery stent placement Status: Chronic (7) Status post left hip replacement Status: Chronic (8) Status post total knee replacement, left Status: Chronic (9) Status post total knee replacement, right Status: Chronic Family History Diabetes mellitus FH: heart disease Social History Smoking Status: Never Smoker Drug Use: none Marital Status: Housing status: lives with family Occupational Status: retired Immunizations History of Influenza Vaccine: Yes Influenza Vaccine Date: Jul 13, 2016 History of Tetanus Vaccine?: Yes Tetanus Immunization Date: Mar 22, 2016 History of Pneumococcal: Yes Pneumococcal Date: Sep 29, 2014 History of Hepatitis B Vaccine: No Multi-Drug Resistant Organisms History of MDRO: No Allergies Coded Allergies: Carbamazepine (Verified Allergy, Unknown, RASH, 09/26/17) Oxaprozin (Verified Allergy, Unknown, RASH/HIVES, 09/26/17) Valproic Acid (Verified Allergy, Unknown, HEAD-TOE RASH, 09/26/17) Prednisone (Verified Adverse Reaction, Unknown, ELEVATION OF SUGARS, ) PATIENT HAS GLAUCOMA BOTH EYES - UNABLE TO TAKE PREDNISONE Home Medications Scheduled Amitriptyline HCl (Amitriptyline HCl), 50 MG PO HS Aspirin (Aspirin Ec), 81 MG PO QPM Atenolol (Tenormin), 25 MG PO QPM Atorvastatin (Lipitor), 1 TAB PO DAILY Bimatoprost (Lumigan), 1 DROPS OP HS Clopidogrel (Plavix), 75 MG PO QAM Diltiazem Hcl Coated Beads (Cartia Xt), 180 MG PO QPM Diphenhydramine Hcl (Benadryl Allergy), 1 TAB DAILY Docusate Sodium (Colace), 2 CAP PO DAILY Fluticasone Propionate (Fluticasone Propionate), 2 SPRAYS JAQUELIN QAM Gabapentin (Gabapentin), 300 MG PO QAM Gabapentin (Neurontin), 600 MG PO QPM Glipizide (Glipizide), 5 MG PO BID Isosorbide Mononitrate Ext Rel (Imdur Ext Rel), 60 MG PO QAM Levothyroxine Sodium (Synthroid), 25 MCG PO QAM Metformin Hcl (Glucophage), 1,000 MG PO BID Nitroglycerin (Nitrostat), 0.4 MG UT PRN Omeprazole (Omeprazole), 20 MG PO BIDM Oxybutynin Chloride (Oxybutynin Chloride), 5 MG PO TID Probiotic Product (Probiotic), 1 CAP PO QAM Scheduled PRN Acetaminophen (Tylenol), 1,000 MG PO Q6 PRN for Pain Tramadol (Ultram), 50 MG PO Q6 PRN for Pain Review of Systems Ten systems reviewed and negative except as noted in the HPI. Physical Exam Vital Signs Date Time Temp Pulse Resp B/P (MAP) Pulse Ox O2 Delivery O2 Flow Rate FiO2 09/26/17 18:37 87 21 164/86 95 09/26/17 18:27 164/86 09/26/17 18:26 87 21 95 09/26/17 18:05 88 09/26/17 17:56 89 22 95 09/26/17 17:26 96 20 164/86 94 09/26/17 15:56 92 21 09/26/17 15:45 153/77 09/26/17 15:21 93 20 140/110 93 Nasal Cannula 3.0 09/26/17 15:12 140/110 09/26/17 14:26 95 22 91 09/26/17 13:56 91 26 09/26/17 13:54 95 Ambu-Bag 3.0 09/26/17 13:44 95 Nasal Cannula 3.0 09/26/17 13:26 86 22 95 09/26/17 13:04 88 09/26/17 13:01 95 Nasal Cannula 3.0 09/26/17 13:01 151/65 09/26/17 13:01 37.6 89 22 151/65 95 Nasal Cannula General Appearance: WD/WN, no apparent distress Head: normocephalic, atraumatic Eyes: normal inspection, PERRL, sclerae normal ENT: normal ENT inspection, hearing grossly normal, pharynx normal Neck: supple, thyroid normal, trachea midline Respiratory/Chest: chest non-tender, no respiratory distress, no accessory muscle use, + wheezing Cardiovascular: normal peripheral pulses, + systolic murmur (heard throughout precordium ) Abdomen/GI: non tender, soft, no organomegaly Extremities/Musculoskelatal: normal inspection, no calf tenderness, no pedal edema Neurologic/Psych: no motor/sensory deficits, alert, normal mood/affect, oriented x 3 Skin: normal color, warm/dry Diagnostics Laboratory Results Results Past 24 Hours Test 09/26/17 13:52 09/26/17 13:55 Range/Units Influenza Type A Antigen Neg for Influ A NEG Influenza Type B Antigen Neg for Influ B NEG White Blood Count 4.65 4.8-10.8 K/uL Red Blood Count 3.64 4.2-5.4 M/uL Hemoglobin 9.9 12.0-16.0 g/dL Hematocrit 31.1 37-47 % Mean Corpuscular Volume 85.4 80-100 fL Mean Corpuscular Hemoglobin 27.2 25-34 pg Mean Corpuscular Hemoglobin Concent 31.8 32-36 g/dl Platelet Count 217 130-400 K/uL Mean Platelet Volume 8.7 7.4-10.4 fL Neutrophils (%) (Auto) 58.9 % Lymphocytes (%) (Auto) 33.8 % Monocytes (%) (Auto) 6.7 % Eosinophils (%) (Auto) 0.0 % Basophils (%) (Auto) 0.4 % Neutrophils # (Auto) 2.74 1.4-6.5 K/uL Lymphocytes # (Auto) 1.57 1.2-3.4 K/uL Monocytes # (Auto) 0.31 0.11-0.59 K/uL Eosinophils # (Auto) 0.00 0-0.5 K/uL Basophils # (Auto) 0.02 0-0.2 K/uL RDW Standard Deviation 50.8 36.4-46.3 fL RDW Coefficient of Variation 16.1 11.5-14.5 % Immature Granulocyte % (Auto) 0.2 % Immature Granulocyte # (Auto) 0.01 0.00-0.02 K/uL Prothrombin Time 11.0 9.0-12.0 SECONDS Prothromb Time International Ratio 1.0 0.9-1.1 Activated Partial Thromboplast Time 31.0 21.0-31.0 SECONDS Partial Thromboplastin Ratio 1.2 Sodium Level 136 136-145 mmol/L Potassium Level 3.7 3.5-5.1 mmol/L Chloride Level 98 98-107 mmol/L Carbon Dioxide Level 31 21-32 mmol/L Anion Gap 7.0 3-11 mmol/L Blood Urea Nitrogen 15 7-18 mg/dl Creatinine 0.94 0.60-1.20 mg/dl Est Creatinine Clear Calc Drug Dose 50.9 ml/min Estimated GFR () 67.8 Estimated GFR (Non- 58.5 BUN/Creatinine Ratio 15.9 10-20 Random Glucose 105 70-99 mg/dl Lactic Acid Level 2.0 0.4-2.0 mmol/L Calcium Level 8.3 8.5-10.1 mg/dl Magnesium Level 1.3 1.8-2.4 mg/dl Total Bilirubin 0.3 0.2-1 mg/dl Aspartate Amino Transf (AST/SGOT) 15 15-37 U/L Alanine Aminotransferase (ALT/SGPT) 15 12-78 U/L Alkaline Phosphatase 51 45-117 U/L Troponin I < 0.015 0-0.045 ng/ml Total Protein 6.9 6.4-8.2 gm/dl Albumin 3.4 3.4-5.0 gm/dl Globulin 3.5 2.5-4.0 gm/dl Albumin/Globulin Ratio 1.0 0.9-2 Microbiology Results 09/26/17 Blood Culture, Received Pending 09/26/17 Blood Culture, Received Pending Diagnostic Radiology CXR: IMPRESSION: 1. Mild bronchial wall thickening may be present, which could suggest bronchitis. 2. Cardiomegaly. CTA chest/thorax: IMPRESSION: 1. There is no evidence of pulmonary embolus in the main, lobar, or segmental pulmonary arteries. 2. There is patchy airspace consolidation present at both lung bases, left greater than right. The appearance is consistent with pneumonia/aspiration pneumonitis. Radiographic follow-up to resolution is recommended. Follow-up should include both PA and lateral views. 3. Cardiomegaly. 4. Prominent mediastinal and hilar lymph nodes are likely on a reactive basis. 5. Additional findings as above. EKG Normal sinus rhythm Right bundle branch block Impression Assessment and Plan This is a 77yo F with a PMH of CAD (s/p stent), DM II, h/o asthma and laryngospasm, GERD, HLD and hypothyroidism who presents with worsening SOB x 5 days. Acute hypoxia 2/2 asthma exacerbation: -Likely 2/2 bronchitis or possible PNA -CXR with mild bronchial wall thickening suggestive of bronchitis -CTA chest/thorax with concern for pneumonia/pneumonitis at bilateral bases -No evidence of PE -Flu antigen negative -O2 saturation in the 70s at PCP's office prior to arrival -Now saturation in mid 90s on 3L NC O2 -Xopenex nebs PRN -Oral prednisone -Ceftriaxone, oral azithromycin -O2 supplementation CAD: -Cardiac cath with stent placed in October 2016 -Stable -Cont aspirin, statin, plavix, Imdur, diltiazem DM II: -Hgb a1c of 7.2 in Jul 2017 -Hold oral home agents -SSI while in-patient -BG checks AC HS HTN: -Elevated 2/2 missed medication this morning -Cont atenolol, imdur, diltiazem -Monitor H/o glaucoma: -Concern of increased IOP with prednisone, but should not be a problem for a short course -Follow up with Ophtho at discharge HLD: -Cont statin Hypothyroidism: -Cont levothyroxine GERD: -Cont PPI DVT Ppx: SQ heparin Code status: FULL PCP: Roma Dispo: Observation telemetry. Plan to discharge home once medically stable. Patient seen in collaboration with . Please see addendum. ADDENDUM: This is a 77 year old female with a PMH of CAD s/p stents, hx. of laryngospasms/ asthma, hypothyroidism - presents with a few day history of feeling a "cold" and worsening cough/congestion. Flu swab was negative on admission. CTA performed and shows consolidation and possible pneumonia. Patient has been wheezing; denies fevers/chills. +end expiratory wheezing on exam +systolic ejection murmur 3/ Plan: prednisone 40mg x5 days (should f/u with ophthalmology due to glaucoma) Rocephin + Azithro for pneumonia/bronchitis nebulizer treatments as needed wean O2 as tolerated (does use O2 nocturnally) continue other cardiac medications as prescribed for now Level of Care Telemetry Resuscitation Status FULL RESUSCITATION VTE Prophylaxis VTE Risk Assessment Done? Y/N: Yes Risk Level: Moderate Given or contraindicated: Unfractionated heparin SQ
[2017-09-26] MEDS: ISOSORBIDE MONONITRATE 60 MG TABCR PO SCH (20:16)
[2017-09-26] MEDS: AZITHROMYCIN 250 MG TAB PO SCH (20:16)
[2017-09-26] MEDS: ASPIRIN 81 MG ECTAB PO SCH (20:17)
[2017-09-26] MEDS: GABAPENTIN 600 MG TAB PO SCH (20:18)
[2017-09-26] MEDS: DILTIAZEM HCL 180 MG CAPCR PO SCH (20:20)
[2017-09-26] MEDS: AMITRIPTYLINE HCL 50 MG TAB PO SCH (20:20)
[2017-09-26] MEDS: OXYBUTYNIN CHLORIDE 5 MG TAB PO SCH (20:22)
[2017-09-26] MEDS: HEPARIN SOD 5000 UNIT/0.5 ML CARP SQ SCH (21:56)
[2017-09-26] MEDS: INSULIN ASPART 100 UNITS/ML 3 ML PEN SC SCH (21:56)
[2017-09-26] MEDS ORDERED: METHYLPREDNISOLONE IV 40 MG in SYRINGE 0 ML IV SCH (22:00)
[2017-09-26] MEDS ORDERED: IV FLUIDS COMPLETED PRN (23:45)
[2017-09-27] VITALS (8 sets, daily range): BP systolic 93–133; BP diastolic 58–73; PULSE 71–86; TEMP 36.6–37; O2SAT 92–97; Ht 160 cm; Wt 81.1 kg
[2017-09-27] MEDS: LEVOTHYROXINE 25 MCG TAB PO SCH (05:54)
[2017-09-27] MEDS: HEPARIN SOD 5000 UNIT/0.5 ML CARP SQ SCH ×3 (05:57→20:31)
[2017-09-27] MEDS: INSULIN ASPART 100 UNITS/ML 3 ML PEN SC SCH ×4 (07:00→20:29)
[2017-09-27 07:02] LABS: HEMATOCRIT 29.2 % (37-47); HEMOGLOBIN 9.2 g/dL (12.0-16.0); MEAN CELL VOLUME 85.6 fL (80-100); MEAN CORPUSCULAR HGB CONC 31.5 g/dl (32-36); MEAN PLATELET VOLUME 8.9 fL (7.4-10.4); PLATELET COUNT 227 K/uL (130-400); RED CELL DISTRIBUTION WIDTH SD 50.6 fL (36.4-46.3); WHITE BLOOD COUNT 4.01 K/uL (4.8-10.8)
[2017-09-27] MEDS ORDERED: COUGH DROP (SUGAR FREE) LOZ 24 LOZ/1 BOX LOZ ONE (07:12)
[2017-09-27] MEDS: AZITHROMYCIN 250 MG TAB PO SCH (07:24)
[2017-09-27] MEDS: PANTOprazole SOD 40 MG TAB PO SCH ×2 (07:24→17:28)
[2017-09-27] MEDS: OXYBUTYNIN CHLORIDE 5 MG TAB PO SCH ×3 (07:25→20:24)
[2017-09-27] MEDS: CLOPIDOGREL BISULFATE 75 MG TAB PO SCH (07:25)
[2017-09-27] MEDS: DOCUSATE SODIUM 100 MG CAP PO SCH (07:26)
[2017-09-27] MEDS: ATORVASTATIN 40 MG TAB PO SCH (07:26)
[2017-09-27] MEDS: GABAPENTIN 300 MG CAP PO SCH ×2 (07:26→20:24)
[2017-09-27] MEDS: FLUTICASONE PROPIONATE NA SPR 16 GM BTL NAE SCH (07:27)
[2017-09-27] MEDS: ISOSORBIDE MONONITRATE 60 MG TABCR PO SCH (07:27)
[2017-09-27 07:41] LABS: CALCIUM 8.3 mg/dl (8.5-10.1); CREATININE 0.92 mg/dl (0.60-1.20); POTASSIUM 4.7 mmol/L (3.5-5.1)
--- NOTE | 2017-09-27 10:09 | Progress Note ---
Internal Med Progress Note Date of Service: Sep 27, 2017. Provider Documentation: SUBJECTIVE: Seen and examined at bedside Fever resolved Cough better Less wheezing, SOB Denies CP, dizziness, abd pain No other complaints OBJECTIVE: Vital Signs-as noted below Physical Exam: General Appearance:Moderately built and nourished, no apparent distress Head: normocephalic, Atraumatic Eyes: normal inspection, EOMI, PERRL Neck: supple, Trachea midline Respiratory/Chest: Decreased breath sounds, Scattered wheezes Cardiovascular: S1, S2, +systolic murmur Abdomen/GI:Soft, Non tender, Bowel sounds present Extremities/Musculoskelatal:normal inspection, Trace edema Neurologic/Psych:AAOX3, grossly no focal neurological deficits Skin: normal color, warm Lab data as noted below. ASSESSMENT & PLAN: Patient is a 77 yr female with PMH of CAD (s/p stent), DM II, h/o asthma and laryngospasm, GERD, HLD and hypothyroidism who presents with worsening SOB x 5 days. Pneumonia/Pneumonitis: Acute hypoxia H/O Laryngospasm and childhood Asthma Chronic Nocturnal Oxygen dependency: 3L CTA: suggestive of pneumonia/Aspiration pneumonitis at bilateral bases, No PE Flu antigen negative Continue Ceftriaxone, Azithromycin Day #2 Xopenex PRN Continue PO prednisone Day # 2 O2 supplementation PRN Speech eval to r/o aspiration Wean off oxygen as able May need 2 step prior to DC CAD: Cardiac cath with stent placed in October 2016 Stable Cont aspirin, statin, plavix, Imdur, diltiazem DM II: Hgb a1c of 7.2 in Jul 2017 Hold oral home agents Continue ISS,Monitor BG HTN: Stable Continue atenolol, imdur, diltiazem H/o glaucoma: Follow up with Ophtho upon discharge HLD: Continue statin Hypothyroidism: Continue levothyroxine GERD: Continue PPI DVT Px: Heparin SQ Code status: Full Code Disposition: Plan to discharge home once medically stable. Vital Signs: Date Time Temp Pulse Resp B/P (MAP) Pulse Ox O2 Delivery O2 Flow Rate FiO2 09/27/17 08:00 Nasal Cannula 3.0 09/27/17 07:33 36.9 80 19 106/62 (77) 93 3.0 09/27/17 04:00 94 Nasal Cannula 3.0 09/27/17 00:12 36.6 71 21 122/67 (85) 94 Nasal Cannula 3.5 1/31/18 00:01 95 Nasal Cannula 3.0 09/26/17 18:57 37.1 89 20 156/75 95 Nasal Cannula 3.0 09/26/17 18:37 87 21 164/86 95 09/26/17 18:27 164/86 09/26/17 18:26 87 21 95 09/26/17 18:05 88 09/26/17 17:56 89 22 95 09/26/17 17:26 96 20 164/86 94 09/26/17 15:56 92 21 09/26/17 15:45 153/77 09/26/17 15:21 93 20 140/110 93 Nasal Cannula 3.0 09/26/17 15:12 140/110 09/26/17 14:26 95 22 91 09/26/17 13:56 91 26 09/26/17 13:54 95 Ambu-Bag 3.0 09/26/17 13:44 95 Nasal Cannula 3.0 09/26/17 13:26 86 22 95 09/26/17 13:04 88 09/26/17 13:01 95 Nasal Cannula 3.0 09/26/17 13:01 151/65 09/26/17 13:01 37.6 89 22 151/65 95 Nasal Cannula Lab Results: Results Past 24 Hours Test 09/26/17 13:52 09/26/17 13:55 09/26/17 21:52 09/27/17 06:31 Range/Units Influenza Type A Antigen Neg for Influ A NEG Influenza Type B Antigen Neg for Influ B NEG White Blood Count 4.65 4.01 4.8-10.8 K/uL Red Blood Count 3.64 3.41 4.2-5.4 M/uL Hemoglobin 9.9 9.2 12.0-16.0 g/dL Hematocrit 31.1 29.2 37-47 % Mean Corpuscular Volume 85.4 85.6 80-100 fL Mean Corpuscular Hemoglobin 27.2 27.0 25-34 pg Mean Corpuscular Hemoglobin Concent 31.8 31.5 32-36 g/dl Platelet Count 217 227 130-400 K/uL Mean Platelet Volume 8.7 8.9 7.4-10.4 fL Neutrophils (%) (Auto) 58.9 % Lymphocytes (%) (Auto) 33.8 % Monocytes (%) (Auto) 6.7 % Eosinophils (%) (Auto) 0.0 % Basophils (%) (Auto) 0.4 % Neutrophils # (Auto) 2.74 1.4-6.5 K/uL Lymphocytes # (Auto) 1.57 1.2-3.4 K/uL Monocytes # (Auto) 0.31 0.11-0.59 K/uL Eosinophils # (Auto) 0.00 0-0.5 K/uL Basophils # (Auto) 0.02 0-0.2 K/uL RDW Standard Deviation 50.8 50.6 36.4-46.3 fL RDW Coefficient of Variation 16.1 16.0 11.5-14.5 % Immature Granulocyte % (Auto) 0.2 % Immature Granulocyte # (Auto) 0.01 0.00-0.02 K/uL Prothrombin Time 11.0 9.0-12.0 SECONDS Prothromb Time International Ratio 1.0 0.9-1.1 Activated Partial Thromboplast Time 31.0 21.0-31.0 SECONDS Partial Thromboplastin Ratio 1.2 Sodium Level 136 136 136-145 mmol/L Potassium Level 3.7 4.7 3.5-5.1 mmol/L Chloride Level 98 100 98-107 mmol/L Carbon Dioxide Level 31 31 21-32 mmol/L Anion Gap 7.0 5.0 3-11 mmol/L Blood Urea Nitrogen 15 20 7-18 mg/dl Creatinine 0.94 0.92 0.60-1.20 mg/dl Est Creatinine Clear Calc Drug Dose 50.9 51.2 ml/min Estimated GFR () 67.8 69.6 Estimated GFR (Non- 58.5 60.1 BUN/Creatinine Ratio 15.9 21.4 10-20 Random Glucose 105 145 70-99 mg/dl Lactic Acid Level 2.0 0.4-2.0 mmol/L Calcium Level 8.3 8.3 8.5-10.1 mg/dl Magnesium Level 1.3 2.1 1.8-2.4 mg/dl Total Bilirubin 0.3 0.2-1 mg/dl Aspartate Amino Transf (AST/SGOT) 15 15-37 U/L Alanine Aminotransferase (ALT/SGPT) 15 12-78 U/L Alkaline Phosphatase 51 45-117 U/L Troponin I < 0.015 0-0.045 ng/ml Total Protein 6.9 6.4-8.2 gm/dl Albumin 3.4 3.4-5.0 gm/dl Globulin 3.5 2.5-4.0 gm/dl Albumin/Globulin Ratio 1.0 0.9-2 Bedside Glucose 271 70-90 mg/dl Test 09/27/17 07:17 Range/Units Bedside Glucose 157 70-90 mg/dl Microbiology Results 09/26/17 Blood Culture, Received Pending 09/26/17 Blood Culture, Received Pending
[2017-09-27] MEDS: CEFTRIAXONE SOD INJ 1 GM in DEXTROSE 5% ADD-VANTAGE 50ML 50 ML IV SCH (12:52)
[2017-09-27] MEDS: DILTIAZEM HCL 180 MG CAPCR PO SCH (20:24)
[2017-09-27] MEDS: ASPIRIN 81 MG ECTAB PO SCH (20:25)
[2017-09-27] MEDS: AMITRIPTYLINE HCL 50 MG TAB PO SCH (20:25)
[2017-09-27] MEDS: GABAPENTIN 600 MG TAB PO SCH (20:26)
[2017-09-27] MEDS: INSULIN GLARGINE SOLOSTAR 100 UNITS/ML 3 ML PEN SC SCH (20:30)
[2017-09-28 03:38] VITALS: BP 123/58; PULSE 76; TEMP 36.8; O2SAT 97
[2017-09-28] MEDS: LEVOTHYROXINE 25 MCG TAB PO SCH (06:02)
[2017-09-28] MEDS: HEPARIN SOD 5000 UNIT/0.5 ML CARP SQ SCH ×3 (06:06→20:44)
[2017-09-28 06:39] LABS: HEMATOCRIT 29.8 % (37-47); HEMOGLOBIN 9.5 g/dL (12.0-16.0); MEAN CELL VOLUME 85.9 fL (80-100); MEAN CORPUSCULAR HEMOGLOBIN 27.4 pg (25-34); MEAN CORPUSCULAR HGB CONC 31.9 g/dl (32-36); MEAN PLATELET VOLUME 8.6 fL (7.4-10.4); PLATELET COUNT 230 K/uL (130-400); RED CELL DISTRIBUTION WIDTH SD 50.4 fL (36.4-46.3); WHITE BLOOD COUNT 6.95 K/uL (4.8-10.8)
[2017-09-28 07:11] LABS: CALCIUM 8.6 mg/dl (8.5-10.1); CREATININE 1.26 mg/dl (0.60-1.20); POTASSIUM 4.2 mmol/L (3.5-5.1)
[2017-09-28 07:31] VITALS: BP 107/67; PULSE 83; TEMP 36.5; O2SAT 94
[2017-09-28] MEDS: ISOSORBIDE MONONITRATE 60 MG TABCR PO SCH (07:52)
[2017-09-28] MEDS: CLOPIDOGREL BISULFATE 75 MG TAB PO SCH (07:53)
[2017-09-28] MEDS: DOCUSATE SODIUM 100 MG CAP PO SCH (07:53)
[2017-09-28] MEDS: ATORVASTATIN 40 MG TAB PO SCH (07:53)
[2017-09-28] MEDS: AZITHROMYCIN 250 MG TAB PO SCH (07:53)
[2017-09-28] MEDS: PANTOprazole SOD 40 MG TAB PO SCH ×2 (07:54→17:31)
[2017-09-28] MEDS: FLUTICASONE PROPIONATE NA SPR 16 GM BTL NAE SCH (07:54)
[2017-09-28] MEDS: OXYBUTYNIN CHLORIDE 5 MG TAB PO SCH ×3 (07:54→20:42)
[2017-09-28] MEDS: INSULIN ASPART 100 UNITS/ML 3 ML PEN SC SCH ×4 (08:00→20:53)
[2017-09-28] MEDS: INSULIN GLARGINE SOLOSTAR 100 UNITS/ML 3 ML PEN SC SCH ×2 (08:01→20:43)
--- NOTE | 2017-09-28 08:38 | Clinical Documentation Query ---
CLINICAL DOCUMENTATION QUERY 77 year old female who presents with pneumonia/aspiration pneumonitis. H&P states hx of COPD and later documents Asthma exacerbation. In your clinical opinion is this patient being managed for: ( ) COPD exacerbation in setting of aspiration pneumonitis ( X ) Asthma exacerbation in setting of aspiration pneumonitis ( ) Not Agree ( ) Other explanation of clinical findings (Please Explain) ( ) Unable to determine (Please Define) ( ) Need to Discuss The medical record reflects the following clinical findings, treatment, and risk factors. Clinical Indicators: As above, minor tachypnea 26, Per ED patient had wet cough with bilateral wheezing and crackles. A pulmonary consultation from 06/18/13 make no mention of COPD only hx of asthma. Treatment: Duonebs, O2 Risk Factors: hx of COPD, aspiration pneumonitis/pneumonia Please clarify and document your clinical opinion in the progress notes and discharge summary. Terms such as "probable", "suspected", "likely", "questionable", "possible", or "still to be ruled out" are acceptable. IF IN AGREEMENT, YOU MUST DOCUMENT ABOVE DIAGNOSTIC STATEMENT IN DAILY PROGRESS NOTES AND DISCHARGE SUMMARY. This document is not part of the patient's record. Thank You, Dale Rivas, RN [phone]
[2017-09-28 11:14] VITALS: BP 107/58; PULSE 83; TEMP 36.8; O2SAT 92
[2017-09-28] MEDS: CEFTRIAXONE SOD INJ 1 GM in DEXTROSE 5% ADD-VANTAGE 50ML 50 ML IV SCH (13:53)
[2017-09-28 15:22] VITALS: BP 123/72; PULSE 82; TEMP 36.7; O2SAT 92
--- NOTE | 2017-09-28 15:28 | Progress Note ---
Internal Med Progress Note Date of Service: Sep 28, 2017. Provider Documentation: SUBJECTIVE: Seen and examined at bedside Cough about the same Fever resolved Denies CP, SOB, dizziness, abd pain No other complaints OBJECTIVE: Vital Signs-as noted below Physical Exam: General Appearance:Moderately built and nourished, no apparent distress Head: normocephalic, Atraumatic Eyes: normal inspection, EOMI, PERRL Neck: supple, Trachea midline Respiratory/Chest: Decreased breath sounds, Scattered wheezes/Rhonchi Cardiovascular: S1, S2, +systolic murmur Abdomen/GI:Soft, Non tender, Bowel sounds present Extremities/Musculoskelatal:normal inspection, Trace edema Neurologic/Psych:AAOX3, grossly no focal neurological deficits Skin: normal color, warm Lab data as noted below. ASSESSMENT & PLAN: Patient is a 77 yr female with PMH of CAD (s/p stent), DM II, h/o asthma and laryngospasm, GERD, HLD and hypothyroidism who presents with worsening SOB x 5 days. Pneumonia/Pneumonitis: Acute hypoxia H/O Laryngospasm and childhood Asthma Could have a component of Asthma exacerbation Chronic Nocturnal Oxygen dependency: 3L CTA: suggestive of pneumonia/Aspiration pneumonitis at bilateral bases, No PE Flu antigen negative Check PCR for Flu Continue Ceftriaxone, Azithromycin Day # 3 Xopenex PRN Continue PO prednisone Day # 3/5 O2 supplementation PRN Speech eval done, no Overt signs of aspiration Wean off oxygen as able May need 2 step prior to DC CAD: Cardiac cath with stent placed in October 2016 Stable Cont aspirin, statin, plavix, Imdur, diltiazem DM II: Hgb a1c of 7.2 in Jul 2017 Hold oral home agents Continue ISS,Monitor BG HTN: Stable Continue atenolol, imdur, diltiazem H/o glaucoma: Follow up with Ophtho upon discharge HLD: Continue statin Hypothyroidism: Continue levothyroxine GERD: Continue PPI DVT Px: Heparin SQ Code status: Full Code Disposition: Plan to discharge home once medically stable. Vital Signs: Date Time Temp Pulse Resp B/P (MAP) Pulse Ox O2 Delivery O2 Flow Rate FiO2 09/28/17 12:00 Nasal Cannula 3.0 09/28/17 11:14 36.8 83 107/58 (74) 92 Nasal Cannula 09/28/17 08:00 Nasal Cannula 3.0 09/28/17 07:31 36.5 83 16 107/67 (80) 94 Nasal Cannula 09/28/17 04:00 Nasal Cannula 3.0 09/28/17 03:38 36.8 76 16 123/58 (79) 97 Nasal Cannula 3.0 09/28/17 00:01 Nasal Cannula 3.0 09/27/17 22:51 36.6 74 16 133/70 (91) 97 Nasal Cannula 3.0 09/27/17 20:00 Nasal Cannula 3.0 09/27/17 18:53 36.8 84 20 121/58 (79) 94 Nasal Cannula 3.0 09/27/17 16:00 Nasal Cannula 2.0 Lab Results: Results Past 24 Hours Test 09/27/17 20:09 09/28/17 06:29 09/28/17 11:08 Range/Units Bedside Glucose 172 102 70-90 mg/dl White Blood Count 6.95 4.8-10.8 K/uL Red Blood Count 3.47 4.2-5.4 M/uL Hemoglobin 9.5 12.0-16.0 g/dL Hematocrit 29.8 37-47 % Mean Corpuscular Volume 85.9 80-100 fL Mean Corpuscular Hemoglobin 27.4 25-34 pg Mean Corpuscular Hemoglobin Concent 31.9 32-36 g/dl RDW Standard Deviation 50.4 36.4-46.3 fL RDW Coefficient of Variation 16.0 11.5-14.5 % Platelet Count 230 130-400 K/uL Mean Platelet Volume 8.6 7.4-10.4 fL Sodium Level 136 136-145 mmol/L Potassium Level 4.2 3.5-5.1 mmol/L Chloride Level 100 98-107 mmol/L Carbon Dioxide Level 32 21-32 mmol/L Anion Gap 4.0 3-11 mmol/L Blood Urea Nitrogen 27 7-18 mg/dl Creatinine 1.26 0.60-1.20 mg/dl Est Creatinine Clear Calc Drug Dose 37.5 ml/min Estimated GFR () 47.6 Estimated GFR (Non- 41.1 BUN/Creatinine Ratio 21.4 10-20 Random Glucose 122 70-99 mg/dl Calcium Level 8.6 8.5-10.1 mg/dl Magnesium Level 2.3 1.8-2.4 mg/dl
[2017-09-28] MEDS ORDERED: SODIUM CHLORIDE 0.9% 1000ML 1,000 ML IV ONE (15:30)
[2017-09-28] MEDS ORDERED: GUAIFENESIN 600 MG TABCR PO ONE (15:45)
[2017-09-28] MEDS ORDERED: NURSING VERBAL MED ORDER ONE (16:30)
[2017-09-28 18:58] VITALS: BP 133/71; PULSE 82; TEMP 36.7; O2SAT 95
[2017-09-28 20:03] LABS: INFLUENZA A PCR Neg for Influ A (NEG); INFLUENZA B PCR Neg for Influ B (NEG)
[2017-09-28] MEDS: GABAPENTIN 600 MG TAB PO SCH (20:40)
[2017-09-28] MEDS: AMITRIPTYLINE HCL 50 MG TAB PO SCH (20:41)
[2017-09-28] MEDS: ASPIRIN 81 MG ECTAB PO SCH (20:41)
[2017-09-28] MEDS: GUAIFENESIN 600 MG TABCR PO SCH (20:41)
[2017-09-28] MEDS: DILTIAZEM HCL 180 MG CAPCR PO SCH (20:42)
[2017-09-28] MEDS ORDERED: BIMATOPROST 0.01% OP SOLN 2.5 ML BTL OPB SCH (21:00)
[2017-09-28 23:38] VITALS: BP 143/71; PULSE 62; TEMP 36.7; O2SAT 99
[2017-09-29 03:14] VITALS: BP 139/64; PULSE 59; TEMP 36.6; O2SAT 98
[2017-09-29] MEDS: LEVOTHYROXINE 25 MCG TAB PO SCH (05:54)
[2017-09-29] MEDS: HEPARIN SOD 5000 UNIT/0.5 ML CARP SQ SCH ×2 (05:56→14:00)
[2017-09-29 07:03] LABS: HEMATOCRIT 27.7 % (37-47); HEMOGLOBIN 8.8 g/dL (12.0-16.0); MEAN CELL VOLUME 85.5 fL (80-100); MEAN CORPUSCULAR HEMOGLOBIN 27.2 pg (25-34); MEAN CORPUSCULAR HGB CONC 31.8 g/dl (32-36); PLATELET COUNT 265 K/uL (130-400); RED CELL DISTRIBUTION WIDTH CV 15.9 % (11.5-14.5); WHITE BLOOD COUNT 6.13 K/uL (4.8-10.8)
[2017-09-29 07:32] LABS: CALCIUM 8.1 mg/dl (8.5-10.1); CREATININE 0.99 mg/dl (0.60-1.20)
[2017-09-29 07:40] VITALS: BP 145/60; PULSE 70; TEMP 36.8; O2SAT 96
[2017-09-29] MEDS: DOCUSATE SODIUM 100 MG CAP PO SCH (08:22)
[2017-09-29] MEDS: ISOSORBIDE MONONITRATE 60 MG TABCR PO SCH (08:22)
[2017-09-29] MEDS: ATORVASTATIN 40 MG TAB PO SCH (08:22)
[2017-09-29] MEDS: CLOPIDOGREL BISULFATE 75 MG TAB PO SCH (08:22)
[2017-09-29] MEDS: AZITHROMYCIN 250 MG TAB PO SCH (08:23)
[2017-09-29] MEDS: GABAPENTIN 300 MG CAP PO SCH (08:23)
[2017-09-29] MEDS: OXYBUTYNIN CHLORIDE 5 MG TAB PO SCH ×2 (08:23→14:21)
[2017-09-29] MEDS: PANTOprazole SOD 40 MG TAB PO SCH (08:24)
[2017-09-29] MEDS: GUAIFENESIN 600 MG TABCR PO SCH (08:24)
[2017-09-29] MEDS: FLUTICASONE PROPIONATE NA SPR 16 GM BTL NAE SCH (08:24)
[2017-09-29] MEDS: INSULIN ASPART 100 UNITS/ML 3 ML PEN SC SCH ×2 (08:32→11:55)
[2017-09-29] MEDS: INSULIN GLARGINE SOLOSTAR 100 UNITS/ML 3 ML PEN SC SCH (08:32)
--- NOTE | 2017-09-29 11:10 | Progress Note ---
Internal Med Progress Note Date of Service: Sep 29, 2017. Provider Documentation: SUBJECTIVE: Seen and examined at bedside Feels much better today Less Cough Fever resolved Denies CP, SOB, dizziness, abd pain No other complaints Prefers to be discharged today OBJECTIVE: Vital Signs-as noted below Physical Exam: General Appearance:Moderately built and nourished, no apparent distress Head: normocephalic, Atraumatic Eyes: normal inspection, EOMI, PERRL Neck: supple, Trachea midline Respiratory/Chest: Decreased breath sounds, minimal wheezes Cardiovascular: S1, S2, +systolic murmur Abdomen/GI:Soft, Non tender, Bowel sounds present Extremities/Musculoskelatal:normal inspection, Trace edema Neurologic/Psych:AAOX3, grossly no focal neurological deficits Skin: normal color, warm Lab data as noted below. ASSESSMENT & PLAN: Patient is a 77 yr female with PMH of CAD (s/p stent), DM II, h/o asthma and laryngospasm, GERD, HLD and hypothyroidism who presents with worsening SOB x 5 days. Pneumonia/Pneumonitis: Acute hypoxia H/O Laryngospasm and childhood Asthma Could have a component of Asthma exacerbation Chronic Nocturnal Oxygen dependency: 3L CTA: suggestive of pneumonia/Aspiration pneumonitis at bilateral bases, No PE Flu antigen negative Continue Ceftriaxone, Azithromycin Day # 4 Xopenex PRN Continue PO prednisone Day # 4/5 O2 supplementation PRN Speech eval done, no Overt signs of aspiration Get 2 step: Needed 2 liters with rest and ambulation CAD: Cardiac cath with stent placed in October 2016 Stable Cont aspirin, statin, plavix, Imdur, diltiazem DM II: Hgb a1c of 7.2 in Jul 2017 Hold oral home agents Continue ISS,Monitor BG HTN: Stable Continue atenolol, imdur, diltiazem H/o glaucoma: Follow up with Ophtho upon discharge HLD: Continue statin Hypothyroidism: Continue levothyroxine GERD: Continue PPI DVT Px: Heparin SQ Code status: Full Code Disposition: Plan to discharge home today Follow up with your PCP on 10/05/17 at 10:45AM Complete the antibiotic and Prednisone as prescribed Seek immediate medical attention if your symptoms reoccur or worsen Vital Signs: Date Time Temp Pulse Resp B/P (MAP) Pulse Ox O2 Delivery O2 Flow Rate FiO2 09/29/17 12:00 Nasal Cannula 3.0 09/29/17 11:18 37.1 79 18 124/58 (80) 93 Tent 3.0 09/29/17 08:00 Nasal Cannula 3.0 09/29/17 07:40 36.8 70 18 145/60 (88) 96 3.0 09/29/17 04:00 Nasal Cannula 3.0 09/29/17 03:14 36.6 59 19 139/64 (89) 98 Nasal Cannula 3.0 09/29/17 00:05 Nasal Cannula 3.0 09/28/17 23:38 36.7 62 19 143/71 (95) 99 Nasal Cannula 3.0 09/28/17 20:00 Nasal Cannula 3.0 09/28/17 18:58 36.7 82 18 133/71 (91) 95 Nasal Cannula 4.0 09/28/17 16:00 Nasal Cannula 3.0 09/28/17 15:22 36.7 82 20 123/72 (89) 92 Nasal Cannula 3.0 Lab Results: Results Past 24 Hours Test 09/28/17 16:07 09/28/17 17:35 09/28/17 19:56 09/29/17 06:24 Range/Units Bedside Glucose 207 210 133 70-90 mg/dl Influenza Type A (RT-PCR) Neg for Influ A NEG Influenza Type B (RT-PCR) Neg for Influ B NEG Test 09/29/17 06:37 09/29/17 11:02 Range/Units White Blood Count 6.13 4.8-10.8 K/uL Red Blood Count 3.24 4.2-5.4 M/uL Hemoglobin 8.8 12.0-16.0 g/dL Hematocrit 27.7 37-47 % Mean Corpuscular Volume 85.5 80-100 fL Mean Corpuscular Hemoglobin 27.2 25-34 pg Mean Corpuscular Hemoglobin Concent 31.8 32-36 g/dl RDW Standard Deviation 50.0 36.4-46.3 fL RDW Coefficient of Variation 15.9 11.5-14.5 % Platelet Count 265 130-400 K/uL Mean Platelet Volume 9.0 7.4-10.4 fL Sodium Level 137 136-145 mmol/L Potassium Level 4.0 3.5-5.1 mmol/L Chloride Level 103 98-107 mmol/L Carbon Dioxide Level 29 21-32 mmol/L Anion Gap 5.0 3-11 mmol/L Blood Urea Nitrogen 25 7-18 mg/dl Creatinine 0.99 0.60-1.20 mg/dl Est Creatinine Clear Calc Drug Dose 48.0 ml/min Estimated GFR () 63.7 Estimated GFR (Non- 55.0 BUN/Creatinine Ratio 25.1 10-20 Random Glucose 114 70-99 mg/dl Calcium Level 8.1 8.5-10.1 mg/dl Magnesium Level 2.2 1.8-2.4 mg/dl Bedside Glucose 80 70-90 mg/dl
[2017-09-29] MEDS ORDERED: AZIT500T3 PO (11:15)
[2017-09-29] MEDS ORDERED: CEFU1TAB35 PO (11:15)
[2017-09-29] MEDS ORDERED: PRD20 PO (11:16)
--- NOTE | 2017-09-29 11:17 | Discharge Instructions ---
Discharge Instructions Date of Service Sep 29, 2017. Admission Reason for Admission: Acute Bronchitis, Asthma Exacerbation, Hypoxia Discharge Discharge Diagnosis / Problem: Pneumonia/Pneumonitis Discharge Goals Goal(s): Decrease discomfort, Improve function Activity Recommendations Activity Limitations: resume your previous activity Exercise/Sports Limitations: as tolerated . Instructions / Follow-Up Instructions / Follow-Up Follow up with your PCP on 10/05/17 at 10:45AM Use 2 liters oxygen at rest and with ambulation Complete the antibiotic and Prednisone as prescribed Can use Albuterol Inhaler as needed for shortness of breath/Wheezing Seek immediate medical attention if your symptoms reoccur or worsen Current Hospital Diet Patient's current hospital diet: Diabetes Type 2 Diet, AHA Diet (Heart Healthy) Discharge Diet Recommended Diet: AHA Diet (Heart Healthy), Diabetes Type 2 Diet Pending Studies Studies pending at discharge: no Medical Emergencies . Who to Call and When: Medical Emergencies: If at any time you feel your situation is an emergency, please call 911 immediately. . Non-Emergent Contact Non-Emergency issues call your: Primary Care Provider Call Non-Emergent contact if: you have a fever, your pain is not controlled, your pain is worsening, your pain is unusual for you, your pain is concerning you, you have any medication questions . . "Provider Documentation" section prepared by Chapin Levi. . VTE Core Measure Inpt VTE Proph given/why not?: Unfractionated heparin SQ
[2017-09-29 11:18] VITALS: BP 124/58; PULSE 79; TEMP 37.1; O2SAT 93
[2017-09-29] MEDS: CEFTRIAXONE SOD INJ 1 GM in DEXTROSE 5% ADD-VANTAGE 50ML 50 ML IV SCH (14:22)
--- NOTE | 2017-09-29 15:01 | Discharge Summary ---
Discharge Summary Date of Service Sep 29, 2017. Discharge Summary Admission Date: Sep 26, 2017 at 16:53 Discharge Date: Sep 29, 2017 Discharge Disposition: Home Principal Diagnosis: Pneumonia/Pneumonitis Procedures: CTA: 1. There is no evidence of pulmonary embolus in the main, lobar, or segmental pulmonary arteries. 2. There is patchy airspace consolidation present at both lung bases, left greater than right. The appearance is consistent with pneumonia/aspiration pneumonitis. Radiographic follow-up to resolution is recommended. Follow-up should include both PA and lateral views. 3. Cardiomegaly. 4. Prominent mediastinal and hilar lymph nodes are likely on a reactive basis. Consultations: None Pending Studies/Follow-Up: Follow up with your PCP on 10/05/17 at 10:45AM Use 2 liters oxygen at rest and with ambulation Complete the antibiotic and Prednisone as prescribed Can use Albuterol Inhaler as needed for shortness of breath/Wheezing Seek immediate medical attention if your symptoms reoccur or worsen Medication Reconciliation New Medications: Azithromycin (Azithromycin) 500 Mg Tab 500 MG PO DAILY for 5 Days, #5 TAB Cefuroxime Axetil (Cefuroxime Axetil) 500 Mg Tab 500 MG PO BID for 5 Days, #10 TABS Prednisone (Prednisone) 20 Mg Tab 40 MG PO DAILY for 1 Day, #2 TAB Continued Medications: Acetaminophen (Tylenol) 500 Mg Tab 1000 MG PO Q6 PRN for Pain, TAB Amitriptyline HCl (Amitriptyline HCl) 25 Mg Tab 50 MG PO HS, #180 Aspirin (Aspirin Ec) 81 Mg Tab 81 MG PO QPM Atenolol (Tenormin) 25 Mg Tab 25 MG PO QPM, 0 Refills Atorvastatin (Lipitor) 80 Mg Tab 1 TAB PO DAILY for 30 Days, #30 TAB 5 Refills Bimatoprost (Lumigan) 0.01 % Gladys 1 DROPS OP HS for 90 Days, #7.5 ML 3 Refills Clopidogrel (Plavix) 75 Mg Tab 75 MG PO QAM, TAB Diltiazem Hcl Coated Beads (Cartia Xt) 180 Mg Cap 180 MG PO QPM, #90 Diphenhydramine Hcl (Benadryl Allergy) 25 Mg Tab 1 TAB DAILY Docusate Sodium (Colace) 100 Mg Cap 2 CAP PO DAILY, CAP Fluticasone Propionate (Fluticasone Propionate) 120 Sprays/6000 Mcg Inha 2 SPRAYS JAQUELIN QAM, #48 Gabapentin (Gabapentin) 300 Mg Cap 300 MG PO QAM Gabapentin (Neurontin) 300 Mg Cap 600 MG PO QPM, CAP Glipizide (Glipizide) 5 Mg Tab 5 MG PO BID, #180 Isosorbide Mononitrate Ext Rel (Imdur Ext Rel) 60 Mg Ertab 60 MG PO QAM, TAB Levothyroxine Sodium (Synthroid) 25 Mcg Tab 25 MCG PO QAM Metformin Hcl (Glucophage) 1,000 Mg Tab 1000 MG PO BID, #180 Nitroglycerin (Nitrostat) 0.4 Mg Tab 0.4 MG UT PRN, 0 Refills NEEDED FOR CHEST PAIN : ONE TABLET UNDER THE TONGUE EVERY 5 MINUTES UP TO 3 DOSES. Omeprazole (Omeprazole) 20 Mg Tab 20 MG PO BIDM Oxybutynin Chloride (Oxybutynin Chloride) 5 Mg Tab 5 MG PO TID Probiotic Product (Probiotic) 1 Cap Cap 1 CAP PO QAM Tramadol (Ultram) 50 Mg Tab 50 MG PO Q6 PRN for Pain, TAB Admission Information HPI (per Admitting provider): This is a 77yo F with a PMH of CAD (s/p stent), DM II, h/o asthma and laryngospasm, GERD, HLD and hypothyroidism who presents with worsening SOB x 5 days. Patient began to have flu symptoms last week, including rhinorrhea, chills , cough, headache and malaise, Two days ago, patient started to feel unable to catch her breath at rest and also reports a fever of 102.6. Took tylenol for fever. Went to see her PCP earlier today and was found to have an O2 saturation in the 70s. Was sent by ambulance to ED for further evaluation of hypoxia. States that she continues to have SOB, cough and wheezing. Denies fever,chills, lightheadedness, headache, visual changes, productive cough, palpitations, chest pain, abd pain, nausea, vomiting, dysuria, diarrhea, constipation or LE swelling. Wears 2.5L NC O2 at night. Physical Exam (per Admitting): General Appearance: WD/WN, no apparent distress Head: normocephalic, atraumatic Eyes: normal inspection, PERRL, sclerae normal ENT: normal ENT inspection, hearing grossly normal, pharynx normal Neck: supple, thyroid normal, trachea midline Respiratory/Chest: chest non-tender, no respiratory distress, no accessory muscle use, + wheezing Cardiovascular: normal peripheral pulses, + systolic murmur (heard throughout precordium ) Abdomen/GI: non tender, soft, no organomegaly Extremities/Musculoskelatal: normal inspection, no calf tenderness, no pedal edema Neurologic/Psych: no motor/sensory deficits, alert, normal mood/affect, oriented x 3 Skin: normal color, warm/dry Hospital Course Patient is a 77 yr female with PMH of CAD (s/p stent), DM II, h/o asthma and laryngospasm, GERD, HLD and hypothyroidism who presents with worsening SOB x 5 days. Pneumonia/Pneumonitis: Acute hypoxia H/O Laryngospasm and childhood Asthma Could have a component of Asthma exacerbation Chronic Nocturnal Oxygen dependency: 3L CTA: suggestive of pneumonia/Aspiration pneumonitis at bilateral bases, No PE Flu antigen negative Continue Ceftriaxone, Azithromycin Day # 4 Xopenex PRN Continue PO prednisone Day # 4/5 O2 supplementation PRN Speech eval done, no Overt signs of aspiration Get 2 step: Needed 2 liters with rest and ambulation CAD: Cardiac cath with stent placed in October 2016 Stable Cont aspirin, statin, plavix, Imdur, diltiazem DM II: Hgb a1c of 7.2 in Jul 2017 Hold oral home agents Continue ISS,Monitor BG HTN: Stable Continue atenolol, imdur, diltiazem H/o glaucoma: Follow up with Ophtho upon discharge HLD: Continue statin Hypothyroidism: Continue levothyroxine GERD: Continue PPI DVT Px: Heparin SQ Code status: Full Code Disposition: Plan to discharge home today Follow up with your PCP on 10/05/17 at 10:45AM Complete the antibiotic and Prednisone as prescribed Seek immediate medical attention if your symptoms reoccur or worsen Total time spent on discharge = 34 minutes This includes examination of the patient, discharge planning, medication reconciliation, and communication with other providers. Discharge Instructions Discharge Instructions Date of Service Sep 29, 2017. Admission Reason for Admission: Acute Bronchitis, Asthma Exacerbation, Hypoxia Discharge Discharge Diagnosis / Problem: Pneumonia/Pneumonitis Discharge Goals Goal(s): Decrease discomfort, Improve function Activity Recommendations Activity Limitations: resume your previous activity Exercise/Sports Limitations: as tolerated . Instructions / Follow-Up Instructions / Follow-Up Follow up with your PCP on 10/05/17 at 10:45AM Use 2 liters oxygen at rest and with ambulation Complete the antibiotic and Prednisone as prescribed Can use Albuterol Inhaler as needed for shortness of breath/Wheezing Seek immediate medical attention if your symptoms reoccur or worsen Current Hospital Diet Patient's current hospital diet: Diabetes Type 2 Diet, AHA Diet (Heart Healthy) Discharge Diet Recommended Diet: AHA Diet (Heart Healthy), Diabetes Type 2 Diet Pending Studies Studies pending at discharge: no Medical Emergencies . Who to Call and When: Medical Emergencies: If at any time you feel your situation is an emergency, please call 911 immediately. . Non-Emergent Contact Non-Emergency issues call your: Primary Care Provider Call Non-Emergent contact if: you have a fever, your pain is not controlled, your pain is worsening, your pain is unusual for you, your pain is concerning you, you have any medication questions . . "Provider Documentation" section prepared by Chapin Levi. . VTE Core Measure Inpt VTE Proph given/why not?: Unfractionated heparin SQ
[2017-09-29 15:21] VITALS: BP 124/58; PULSE 79; TEMP 37.1; O2SAT 93
== END 2017-09-29 16:59 | disposition home or self-care (01) | DRG 178 ==
LOC: EDBD 12:56 → C.EDC 12:57 → UNDOADMOB 16:53 → C.2T 16:53 → INTOOBSV 16:53 → OBSVTOIN 16:53 → ENRESERV 18:17 → OBSVTOIN 09-27 16:23 → C.2T 09-27 16:23 → UNDODISIN 09-29 16:59
PROVIDERS: ADMIT Family Medicine; ATTEND Internal Medicine
DX: J69.0 Pneumonitis due to inhalation of food and vomit (principal); J45.901 Unspecified asthma with (acute) exacerbation; J44.1 Chronic obstructive pulmonary disease with (acute) exacerbation; I25.10 Atherosclerotic heart disease of native coronary artery without angina pectoris; R09.02 Hypoxemia; J45.909 Unspecified asthma, uncomplicated; K21.9 Gastro-esophageal reflux disease without esophagitis; E78.5 Hyperlipidemia, unspecified; I10 Essential (primary) hypertension; E03.9 Hypothyroidism, unspecified; E11.40 Type 2 diabetes mellitus with diabetic neuropathy, unspecified; M19.90 Unspecified osteoarthritis, unspecified site; G25.81 Restless legs syndrome; H40.9 Unspecified glaucoma; Z96.642 Presence of left artificial hip joint; Z96.653 Presence of artificial knee joint, bilateral; Z79.82 Long term (current) use of aspirin; Z99.81 Dependence on supplemental oxygen; Z95.5 Presence of coronary angioplasty implant and graft; Z83.3 Family history of diabetes mellitus; Z82.49 Family history of ischemic heart disease and other diseases of the circulatory system

== ENCOUNTER → 2018-01-04 | Day surgery (SDC) | payer OTHER ==
[2018-01-01 14:11] VITALS: BMI 32.0
[~2018-01-04] VITALS: Ht 157.5 cm; Wt 79.5 kg
[~2018-01-04] MED LIST changes: +FERR1TAB13 PO; -GLC5 PO; +GLIP10TA10 PO; -ISOS60TA25 PO; +LIDOCAINE HCL 2% 2 ML VIAL (20MG/ML) ONE; +PHENYLEPHRINE 100MCG/ML 5ML SYR ONE; +PROPOFOL IV EMULSION 10 MG/ML 20 ML VIAL ONE; +SODIUM CHLORIDE 0.9% 500ML 500 ML IV ONE
[2018-01-04 09:19] VITALS: Ht 157.5 cm; Wt 79.5 kg
--- NOTE | 2018-01-04 09:32 | Endo History and Physical ---
History & Physical Date of Service: January 04, 2018. Chief Complaint: LALITA Referring Physician: DR MCCARTY History of Present Illness iron def anemia; h/o polyps Past Medical History Diabetes, Arthritis, Asthma, CHF, Hypertension, COPD Past Surgical History Hx Cardiac Surgery: Yes (HEART CATH WITH X4 STENTS, BILT CAROTID ENDARTECTOMY) Hx Internal Defibrillator: No Hx Pacemaker: No Hx Post-Op Nausea and Vomiting: No Hx Cancer Surgery: No Hx Thoracic Surgery: No Hx Orthopedic: Yes (SI joint, nailing, lumbar fusion x 2, bilt TKA, Left RAHEL) Hx Urinary Tract Surgery: No Social History Smoking Status: Never Smoker Hx Substance Use: No Hx Alcohol Use: No Allergies Coded Allergies: Carbamazepine (Verified Allergy, Unknown, RASH, 01/01/18) Oxaprozin (Verified Allergy, Unknown, RASH/HIVES, 01/01/18) Valproic Acid (Verified Allergy, Unknown, HEAD-TOE RASH, 01/01/18) Prednisone (Verified Adverse Reaction, Unknown, ELEVATION OF SUGARS, ) PATIENT HAS GLAUCOMA BOTH EYES - UNABLE TO TAKE PREDNISONE Current Medications Reported Home Medications Medications Dose Route/Sig Max Daily Dose Days Date Category Dose Instructions Kp Ferrous Sulfate (Ferrous Sulfate) 325 Mg Tab 1 Tab PO BID 30 01/01/18 Reported Glipizide 10 Mg Tab 1 Tab PO BID 01/01/18 Reported Ultram (Tramadol HCl) 50 Mg Tab 50 Mg PO Q6 PRN 06/27/17 Reported Lumigan (Bimatoprost) 0.01 % Gladys 1 Drops OP HS 90 06/27/17 Reported Lipitor (Atorvastatin Calcium) 80 Mg Tab 1 Tab PO DAILY 30 06/27/17 Reported Tylenol (Acetaminophen) 500 Mg Tab 1,000 Mg PO Q6 PRN 06/27/17 Reported Benadryl Allergy (Diphenhydramine Hcl) 25 Mg Tab 1 Tab DAILY 06/27/17 Reported Plavix (Clopidogrel Bisulfate) 75 Mg Tab 75 Mg PO QAM 06/04/17 Reported Probiotic (Probiotic Product) 1 Cap Cap 1 Cap PO QAM 06/04/17 Reported Neurontin (Gabapentin) 300 Mg Cap 600 Mg PO QPM 06/04/17 Reported Colace (Docusate Sodium) 100 Mg Cap 1 Cap PO BID 12/19/16 Reported Fluticasone Propionate 120 Sprays/6000 Mcg Inha 2 Sprays JAQUELIN QAM 12/18/16 Reported Amitriptyline HCl 25 Mg Tab 50 Mg PO HS 12/18/16 Reported Cartia Xt (Diltiazem Hcl Coated Beads) 180 Mg Cap 180 Mg PO QPM 12/18/16 Reported Glucophage (Metformin Hcl) 1,000 Mg Tab 1,000 Mg PO BID 12/18/16 Reported Gabapentin 300 Mg Cap 300 Mg PO QAM 12/18/16 Reported Oxybutynin Chloride 5 Mg Tab 5 Mg PO DAILY PRN 12/18/16 Reported Aspirin Ec (Aspirin) 81 Mg Tab 81 Mg PO QPM 01/13/16 Reported Synthroid (Levothyroxine Sodium) 25 Mcg Tab 25 Mcg PO QAM 02/06/14 Reported Omeprazole 20 Mg Tab 20 Mg PO BIDM 10/15/13 Reported Tenormin (Atenolol) 25 Mg Tab 25 Mg PO QPM 11/11/10 Reported Nitrostat (Nitroglycerin) 0.4 Mg Tab 0.4 Mg UT PRN 11/11/10 Reported NEEDED FOR CHEST PAIN : ONE TABLET UNDER THE TONGUE EVERY 5 MINUTES UP TO 3 DOSES. Vital Signs Weight (Kilograms): 79.55 Height (Feet): 5 Height (Inches): 2 Date Time Temp Pulse Resp B/P (MAP) Pulse Ox O2 Delivery O2 Flow Rate FiO2 01/04/18 09:12 36.9 91 18 169/76 (107) 95 Room Air Physical Exam General Appearance: WD/WN, no apparent distress Assessment and Plan Colonoscopy today
--- NOTE | 2018-01-04 10:28 | GI REPORT ---
Patient Name: Yael Montgomery Procedure Date: 01/04/2018 10:01 AM Date of : 1940 Admit Type: Outpatient Age: 77 Gender: Female Attending MD: Amy Mirza DO Procedure: Colonoscopy Providers: Amy Mirza DO Referring MD: Ben Brandon Indications: High risk colon cancer surveillance: Personal history of colonic polyps; iron deficiency anemia Medicines: Propofol per Anesthesia Complications: No immediate complications. Estimated blood loss: Minimal. Estimated Blood Loss: Estimated blood loss was minimal. Procedure: Pre-Anesthesia Assessment: - Prior to the procedure, a History and Physical was performed, and patient medications, allergies and sensitivities were reviewed. The patient's tolerance of previous anesthesia was reviewed. - The risks and benefits of the procedure and the sedation options and risks were discussed with the patient. All questions were answered and informed consent was obtained. - Patient identification and proposed procedure were verified prior to the procedure by the physician and the nurse. The procedure was verified in the pre-procedure area in the procedure room. - Mental Status Examination: alert and oriented. Airway Examination: normal oropharyngeal airway and neck mobility. Respiratory Examination: clear to auscultation. CV Examination: normal. Abdominal Examination: bowel sounds present, abdomen soft and non-tender, no masses or organomegaly noted. - ASA Grade Assessment: III - A patient with severe systemic disease. After I obtained informed consent, the scope was passed under direct vision. Throughout the procedure, the patient's blood pressure, pulse, and oxygen saturations were monitored continuously. The scope was introduced through the anus and advanced to the terminal ileum. The colonoscopy was performed without difficulty. The patient tolerated the procedure well. The quality of the bowel preparation was good. Findings: The perianal and digital rectal examinations were normal. Pertinent negatives include normal sphincter tone and no palpable rectal lesions. The terminal ileum appeared normal. A 5 mm polyp was found in the descending colon. The polyp was sessile. The polyp was removed with a cold snare. Resection and retrieval were complete. Verification of patient identification for the specimen was done by the physician and nurse using the patient's name and date. Estimated blood loss was minimal. Multiple small and large-mouthed diverticula were found in the sigmoid colon. The retroflexed view of the distal rectum and anal verge was normal and showed no anal or rectal abnormalities. Impression: - The examined portion of the ileum was normal. - One 5 mm polyp in the descending colon, removed with a cold snare. Resected and retrieved. - Diverticulosis in the sigmoid colon. - The distal rectum and anal verge are normal on retroflexion view. Recommendation: - Await pathology results. - Repeat colonoscopy for surveillance based on pathology results. - Return to referring physician as previously scheduled. - Discharge patient to home. Amy Mirza D.O. Amy Mirza, 01/04/2018 10:28:28 AM This report has been signed electronically. Note Initiated On: 01/04/2018 10:01 AM Number of Addenda: 0 I attest to the content of the Intraoperative Record and orders documented therein, exceptions below {[id number]}
--- NOTE | 2018-01-04 10:29 | Discharge Instructions ---
Endoscopy Patient Instructions Date / Procedure(s) Performed January 04, 2018. Colonoscopy Allergy Information Coded Allergies: Carbamazepine (Verified Allergy, Unknown, RASH, 01/01/18) Oxaprozin (Verified Allergy, Unknown, RASH/HIVES, 01/01/18) Valproic Acid (Verified Allergy, Unknown, HEAD-TOE RASH, 01/01/18) Prednisone (Verified Adverse Reaction, Unknown, ELEVATION OF SUGARS, ) PATIENT HAS GLAUCOMA BOTH EYES - UNABLE TO TAKE PREDNISONE Discharge Date / Findings January 04, 2018. small polyp; diverticulosis Medication Instructions Restart Stopped Medication(s): OK to resume home medications Provider Instructions Activity Restrictions - No exercising or heavy lifting for 24 hours. - Do not drink alcohol the day of the procedure. - Do not drive a car or operate machinery until the day after the procedure. - Do not make any important decisions or sign important papers in 24 hours after the procedure. Following Day: - Return to full activity which may include returning to work/school. Diet Start your diet with liquids and light foods (jello, soup, juice, toast). Then eat your usual diet if not nauseated. Treatment For Common After Affects For mild abdominal pain, bloating, or excessive gas: - Rest - Eat lightly - Lie on right side Follow-Up Information Follow-up with DR MCCARTY as scheduled Anesthesia Information What You Should Know You have had a procedure that required some medicine to reduce anxiety and discomfort. This treatment is called moderate sedation. After receiving the treatment, you may be sleepy, but you will be able to breathe on your own. The effects of the treatment may last for several hours. Follow these instructions along with Activity/Diet recommendations noted above: * Do NOT do anything where dizziness or clumsiness would be dangerous. * Rest quietly at home today, then you can be up and about tomorrow. * Have a responsible person stay with you the rest of today. * You may have had an I.V. today. If so, you may take the dressing off later today. Recommendations Call your doctor if: * Trouble breathing * Continuous vomiting for more than 24 hours * Temperature above 101 degrees * Severe abdominal pain or bloating * Pain not relieved by pain medicine ordered * There is increased drainage or redness from any incision * A large amount of rectal bleeding greater than 2-3 tablespoons. (If you had a polyp/s removed or have hemorrhoids, a small amount of blood - from the rectum is to be expected.) * You have any unanswered questions or concerns. IN THE EVENT OF A SERIOUS EMERGENCY, GO TO THE NEAREST EMERGENCY ROOM Your discharge instructions were prepared by provider Amy Mirza. Patient Instructions Signature Page Yael Montgomery Patient (or Guardian) Signature/Date: I have read and understand the instructions given to me by my caregivers. Caregiver/RN/Doctor Signature/Date: The above-named patient and/or guardian has received patient instructions on this date. + Original Patient Signature Page (only) stays with chart. Please make copy for patient.
--- NOTE | 2018-01-04 10:45 | Anesthesiology Progress Note ---
Anesthesia Post Op Note Date & Time January 04, 2018 at 10:45 Vital Signs Pain Intensity: 0 Vital Signs Past 12 Hours Date Time Temp Pulse Resp B/P (MAP) Pulse Ox O2 Delivery O2 Flow Rate FiO2 01/04/18 09:12 36.9 91 18 169/76 (107) 95 Room Air Notes Mental Status: alert / awake / arousable, participated in evaluation Pt Amnestic to Procedure: Yes Nausea / Vomiting: adequately controlled Pain: adequately controlled Airway Patency, RR, SpO2: stable & adequate BP & HR: stable & adequate Hydration State: stable & adequate Anesthetic Complications: no major complications apparent
[2018-01-04 10:59] VITALS: BP 158/66; PULSE 70; O2SAT 95
== END | disposition home or self-care (01) ==
LOC: C.GI 08:44
PROVIDERS: ATTEND Internal Medicine
DX: Z12.11 Encounter for screening for malignant neoplasm of colon (principal); D50.9 Iron deficiency anemia, unspecified; D12.4 Benign neoplasm of descending colon; G47.33 Obstructive sleep apnea (adult) (pediatric); I25.10 Atherosclerotic heart disease of native coronary artery without angina pectoris; I10 Essential (primary) hypertension; E11.9 Type 2 diabetes mellitus without complications; K21.9 Gastro-esophageal reflux disease without esophagitis; M19.90 Unspecified osteoarthritis, unspecified site; Z98.1 Arthrodesis status; Z96.653 Presence of artificial knee joint, bilateral; Z96.641 Presence of right artificial hip joint; Z79.82 Long term (current) use of aspirin

== ENCOUNTER 2020-12-15 06:48 | Inpatient (IN) ==
[2020-12-15] MEDS ORDERED: MIDAZOLAM HCL 1 MG/ML 2ML VIAL ONE ×3 (08:30→10:37)
[2020-12-15] MEDS ORDERED: HEPARIN (PORCINE) 1000 UNIT/ML 10 ML (CATH LAB USE ONLY) ONE ×2 (08:30→10:41)
[2020-12-15] MEDS ORDERED: niCARdipine HCL INJ 2.5 MG/ML 10 ML AMP ONE (08:30)
[2020-12-15] MEDS ORDERED: NITROGLYCERIN/D5W 100MCG/ML 20ML SYR ONE (08:31)
[2020-12-15] MEDS ORDERED: fentaNYL citrate 100 MCG/2 ML VIAL ONE ×2 (08:31→10:37)
--- NOTE | 2020-12-15 08:36 | History & Physical Bridge Note ---
Date of Service December 15, 2020 History & Physical Bridge Note I have examined the patient, reviewed the History & Physical and in the interval since the performance of the History & Physical I have noted the following changes of clinical significance: no changes noted
--- NOTE | 2020-12-15 08:41 | Pre Anesthesia Assessment ---
Date of Service December 15, 2020 Pre Sedation Assessment Vital Signs Temp Pulse Resp BP Pulse Ox 12/15/20 07:10 36.8 C 76 14 134/73 96 Cardiovascular + regular rate + murmur Respiratory normal respiratory effort, lungs clear to auscultation Pre-Sedation Airway Assessment Smoking Status: Never smoker Hx Sleep Apnea: No Short, Thick Neck: No Thyromental Distance: > or= 3.5 Finger Breadths Oral Cavity: + Dentures Mallampati Class: III ASA: ASA3 NPO Status Date of Last Intake of Fluids: 12/14/20 Time of Last Intake of Fluids: 20:00 Date of Last Intake of Solid Food: 12/14/20 Time of Last Intake of Solid Foods: 20:00 Procedure Planning Contraindications for Sedation: none Current Medications Reviewed: No Notes The planned sedation has been discussed with the patient. Informed Consent was obtained. I have identified the patient, determined the appropriateness of sedation and have assessed the patient immediately prior to the procedure. All medicine(s) and interventions are by my order.
[2020-12-15] MEDS ORDERED: NITROGLYCERIN SL 0.4 MG/TAB TAB ONE (09:18)
--- NOTE | 2020-12-15 09:25 | Cardiac Catheterization ---
Cardiac Cath Procedure Brief Procedure Date December 15, 2020 Pre-Procedure Diagnosis Pre-Procedure Diagnosis: Angina AUC Score AUC Score: 8 Post-Procedure Diagnosis Post-Procedure Diagnosis: Severe CAD Procedure(s) Performed Procedure(s) Performed: Coronary Angiography Hog Operator Meng Arredondo MD Obstetrics Scrub Nurse(s) [facility] Estimated Blood Loss Estimated Blood Loss: <15cc Medication(s) Medication(s): Fentanyl (12.5 mcg IV), Lidocaine 1% and Versed (1 mg IV) Preliminary Findings Impression: Right dominant coronary anatomy High-grade culprit lesion mid left anterior descending, 90% distal to prior stent. Coronary angiography: Left main: Upward takeoff with mild luminal irregularities and no obstruction. Left Main sits above TAVR valve apparatus Left anterior descending: Type III vessel giving rise to 2 moderate-sized diagonal branches in its midportion. There is a long area of stenting in its proximal portion with 30% proximal portion of stent. Beyond the area of prior stent there is a discrete 90% stenosis in the mid vessel Left circumflex: Large with broad distribution but nondominant. It gives rise to a trivial first marginal branch a large multibranching obtuse marginal then along the AV groove two moderately large posterior lateral branches. There are moderate luminal irregularities but no obstruction Right coronary artery: Dominant distribution. Gives rise to a sinoatrial branch in its proximal third to right ventricular branches in its midportion and at the AV groove bifurcates into a long posterior descending artery and along posterior ventricular branch. The ostium of the right coronary on distal edge of valve apparatus. There is a long area of previous stenting in the proximal and mid right coronary artery with moderate in-stent narrowing of 50%. The ostium of the right coronary artery is narrowed by 40% Plan: Refer for coronary invention mid LAD Recommendations Recommendations: PCI without planned CABG Specimens Specimens: None Fluids (cc crystalloids) Fluids (cc crystalloids): 60 Anesthesia Start time: 53, stop time: 15 Procedural Complication(s) None (Coronary catheters used JL4, JL 3.5, 3 DRC)
--- NOTE | 2020-12-15 09:49 | Cardiac Catheterization ---
Cardiac Cath Procedure Full Procedure Date December 15, 2020 Pre-Procedure Diagnosis Pre-Procedure Diagnosis: Angina AUC Score AUC Score: 8 Post-Procedure Diagnosis Post-Procedure Diagnosis: Severe CAD Procedure(s) Performed Procedure(s) Performed: Coronary Angiography Cottrell Operator Meng Arredondo MD Poultry Farmer Meat(s) [facility] Estimated Blood Loss Estimated Blood Loss: <15cc Medication(s) Medication(s): Fentanyl (12.5 mcg IV), Lidocaine 1% and Versed (1 mg IV) Summary of Findings Impression: Right dominant coronary anatomy High-grade culprit lesion mid left anterior descending, 90% distal to prior stent. Coronary angiography: Left main: Upward takeoff with mild luminal irregularities and no obstruction. Left Main sits above TAVR valve apparatus Left anterior descending: Type III vessel giving rise to 2 moderate-sized diagonal branches in its midportion. There is a long area of stenting in its proximal portion with 30% proximal portion of stent. Beyond the area of prior stent there is a discrete 90% stenosis in the mid vessel Left circumflex: Large with broad distribution but nondominant. It gives rise to a trivial first marginal branch a large multibranching obtuse marginal then along the AV groove two moderately large posterior lateral branches. There are moderate luminal irregularities but no obstruction Right coronary artery: Dominant distribution. Gives rise to a sinoatrial branch in its proximal third to right ventricular branches in its midportion and at the AV groove bifurcates into a long posterior descending artery and along posterior ventricular branch. The ostium of the right coronary on distal edge of valve apparatus. There is a long area of previous stenting in the proximal and mid right coronary artery with moderate in-stent narrowing of 50%. The ostium of the right coronary artery is narrowed by 40% Plan: Refer for coronary invention mid LAD Hemodynamics Rest Ao:: 169/74/120 Final Ao: 166/75/114 LV: N/A Recommendations Recommendations: PCI without planned CABG Specimens Specimens: None Radiation Exposure (mGy) 482 Contrast (mls) 86 Fluids (cc crystalloids) Fluids (cc crystalloids): 60 Anesthesia Start time: 53, stop time: 15 Procedural Complication(s) None (Coronary catheters used JL4, JL 3.5, 3 DRC) Disposition PCI same setting I attest to the content of the Intraoperative Record and any orders documented therein. Any exceptions are noted below. 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 recently evaluated for symptoms of crescendo angina relieved by sublingual nitroglycerin at very low level workload CAD Presenation: Stable angina Anginal Classification: CCS III Heart Failure: No Cardiogenic Shock within 24 Hours: No Cardiac Arrest within 24 Hours: No Imaging Studies Past 6 Months: Yes Stress Studies Past 6 Months: No Standard Exercise Test: No Stress Echocardiogram: No Stress Testing w/SPECT MPI: No Cardiac CTA: No Coronary Anatomy Dominant: Right Left Main (% Stenosis): Mid (Luminal irregularity) LAD (% Stenosis): Proximal (30) and Mid (90) D1 (% Stenosis): Normal D2 (% Stenosis): Normal Circumflex (% Stenosis): Mid (Luminal irregularities) OM1 (% Stenosis): Normal OM2 (% Stenosis): Normal L PL1 (% Stenosis): Normal L PL2 (% Stenosis): Normal RCA (% Stenosis): Ostial (40) and Mid (Long in-stent stenosis 50%) R PDA (% Stenosis): Normal R PL1 (% Stenosis): Normal Diagnostic Physicians Name: Meng Arredondo MD Closure Device Recommendations: PCI without planned CABG
[2020-12-15] MEDS ORDERED: NITROGLYCERIN/D5W 100 MCG/ML BTL ONE (10:25)
--- NOTE | 2020-12-15 12:02 | Post Anesthesia Assessment ---
Date of Service December 15, 2020 Post Sedation Assessment Vital Signs Temp Pulse Resp BP Pulse Ox 12/15/20 07:10 98.2 F 76 14 134/73 96 Recovery Score Activity: Moves 4 extremities Respiration: Deep Breath/Cough Circulation: +/-20% PreAnes Value Consciousness: Fully Awake Oxygen Saturation: O2 needed for >90% Discharge Sedation Level of Care: Fast Track Phase II Post Sedation Plan On clinical assessment, the patient appears to have tolerated the sedation without complications. Patient is recovering as anticipated. Patient will continue to be monitored by nursing and may be discharged when sedation discharge criteria are met per below protocol. Upon Completions of procedure up to 15 minutes continue every 5 minute vital signs and the P.A.R. score; then discharge to a Phase I or Fast Track to Phase II per the following guidelines: * Discharge Patient to appropriate Phase II area if PAR is 8 or greater or return to pre- procedure baseline. The post - procedure orders will be as directed. * If PAR score is less than 8 or not return to pre-procedure baseline then patient will follow Phase I monitoring till PAR is reached for Phase II. The Phase I may be done in procedure room or may call to secure a Phase I area. * If naloxone or flumazenil are used for reversal, hold in Phase I for continued monitoring from when last reversal dose was given for a minimum of 60 minutes or longer pending the nurse and/or physician discretion of patient condition before discharge to Phase II. Please call the Sedation Physician to re-evaluate and complete post-note for discharge to Phase II area. Do NOT discharge from procedure sedation or Phase 1 until post- sedation evaluation note is complete by procedure /sedation MD Sedation Discharge Instructions to be given to the patient at discharge to home.
--- NOTE | 2020-12-15 12:23 | Cardiac Catheterization ---
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 Status Clinical evaluation leading to the procedure CAD Presenation: Unstable angina Anginal Classification: CCS III Heart Failure: No Cardiogenic Shock within 24 Hours: No Cardiac Arrest within 24 Hours: No Imaging Studies Past 6 Months: Yes Stress Studies Past 6 Months: No Diagnostic Physicians Name: Jake Wilburn MD Status: Elective Closure Device Percutaneous Entry Location: Femoral Recommendations: Management Recommendatons (IABP and transfer to tertiary center) Intraprocedure Events Significant Disection: No Perforation: No Cardiac Cath Procedure Full Procedure Date December 15, 2020 Pre-Procedure Diagnosis Pre-Procedure Diagnosis: Angina AUC Score AUC Score: 8 Post-Procedure Diagnosis Post-Procedure Diagnosis: Severe CAD and Unsuccessful PCI Procedure(s) Performed Procedure(s) Performed: Coronary Angiography, Drug Eluting Stent, IABP and Femoral Artery Angiography Rim Fire Charger Operator Jake Wilburn MD Airplane Cabin Attendant(s) Iqra Hernandez Estimated Blood Loss Estimated Blood Loss: <15cc Medication(s) Medication(s): Fentanyl (12.5 mcg IV), Heparin, Lidocaine 1%, Nicardipine, Nitroglycerin and Versed (1 mg IV) Summary of Findings Indication: Accelerating angina Access: 6Fr right common femoral artery Catheters: JL 3.5 guide Findings: For full details of patient's coronary angiography please see cath report dictated by Dr. Arredondo. Briefly, patient found to have severe single vessel disease with a 95% mid LAD stenosis. Decision to proceed with PCI. -- PCI -- Antithrombotic therapy: Heparin Procedure: Left main cannulated with JL 3.5 guide Attempted to cross mid LAD lesion with oversize load pilot escort 50 wire, wire ended up in dissection plane and flow lost in LAD To better visualize LAD - GuideLiner placed in left main Multiple attempts made to cross LAD occlusion with multiple wires including with long whisper wire and OTW balloon but unable to reenter true lumen. Then noted to have a spiral dissection in circumflex Whisper wire placed into largest, distal OM Intraluminal position confirmed through injection via OTW balloon Mid circumflex into distal OM stented with 2.75 x 26 mm Segundo drug-eluting. KHARI-3 flow in circumflex, distal OM 3. Residual nonflow limiting dissection in proximal circumflex. No residual flow in small OM2. Further attempts then made to cross LAD occlusion but again unsuccessful. With notable mid LAD dissection plane likelihood of crossing occlusion thought to be low and procedure aborted. Patient with moderate chest pain but no ST changes on monitor. Hypertensive and started on nitro infusion. Via prior right common femoral access 7.5 Fr sheath placed and IABP placed to aorta. IABP left at 1:1 with augmented mean pressures in the 120s. At completion of procedure, mid LAD remained occluded with faint left to left collaterals to diagonal and apical portion of vessel. KHARI-3 flow in circumflex system non-flow limiting dissection in proximal circumflex. Patient chest pain- free on nitro infusion with IABP. Summary: 1. Unsuccessful PCI of mid LAD with resulting mid LAD occlusion. 2. Procedure related circumflex dissection extending into large OM 3. 3. PCI of mid circumflex into OM 3 dissection with a single drug-eluting stent (2.75 x 26 mm Segundo). 4. Placement of IABP Recommendations: Plan to transfer to [facility] for further management and additional revascularization options if needed. Hemodynamics Rest Ao:: 131/56/102 Final Ao: 159/71/111 LV: -- Recommendations Recommendations: Management Recommendatons (IABP and transfer to tertiary center) Specimens Specimens: None Radiation Exposure (mGy) 5990 Contrast (mls) 211 Fluids (cc crystalloids) Fluids (cc crystalloids): 307 Drains Drains: None Anesthesia Start time: Procedural Complication(s) None (Coronary catheters used JL4, JL 3.5, 3 DRC) Disposition [facility] I attest to the content of the Intraoperative Record and any orders documented therein. Any exceptions are noted below. [facility] Card Cath Procedure Codes Therapeutic Services & Ancillary Proc Procedure 1: Cardiovascular Tx and Anc Procedures: 91260 IABP Insertion Moderate Sedation Procedure 1: Sedation/Anesthesia: 41018 Mod Sedation by the same physician; Ea [id number] Minutes Stenting Procedure 1: Cardiovascular Stent Procedures: 81489 Perc transcatheter placement of intracoronary stent(s), with ang PG Care Time/CCT Total # of Minutes Spent Total Time Spent with Patient: Total time spent is greater than 50% in coordination of care (as documented) at patient's floor/unit and/or counseling patient:
[2020-12-15] MEDS ORDERED: MoRPHine SULFATE 2 MG/ML CARP ONE (14:44)
--- NOTE | 2020-12-16 15:30 | Electrocardiogram Report ---
Test Reason : Blood Pressure : / mmHG Vent. Rate : 077 BPM Atrial Rate : 077 BPM P-R Int : 172 ms QRS Dur : 128 ms QT Int : 450 ms P-R-T Axes : 039 -02 031 degrees QTc Int : 509 ms Normal sinus rhythm Possible Left atrial enlargement Right bundle branch block Abnormal ECG When compared with ECG of 26-SEP-2017 12:59, No significant change was found Confirmed by Jake Taylor ([id number]) on 12/16/2020 3:30:24 PM Referred By: Thaddeus Cole Confirmed By:Phillip Taylor
== END 2020-12-15 15:15 | disposition short-term general hospital (02) | DRG 270 ==
LOC: CC 06:48 → 1E 11:45 → CC 15:00
PROC: CLB.CCO (2020-12-15 08:00)

== ENCOUNTER 2021-08-29 01:14 | Inpatient (IN) ==
[2021-08-29] MEDS ORDERED: ASPIRIN CHEW 324 MG ONE (01:22)
[2021-08-29] MEDS ORDERED: SODIUM CHLORIDE 0.9% 500 ML IV SCH (01:30)
[2021-08-29 01:36] LABS: Eosinophils # (auto) 0.06 K/uL (0-0.5); Eosinophils % (auto) 0.8 %; Hematocrit (blood only) 33.2 % (37-47); Hemoglobin 10.5 g/dL (12.0-16.0); Immature Granulocytes # (auto) 0.02 K/uL (0.00-0.02); Immature Granulocytes % (auto) 0.3 %; Lymphocytes # (auto) 1.45 K/uL (1.2-3.4); Lymphocytes % (auto) 20.3 %; Mean Corpuscular Hemoglobin 27.8 pg (25-34); Mean Corpuscular Hgb Conc 31.6 g/dL (32-36); Mean Corpuscular Volume 87.8 fL (80-100); Mean Platelet Volume 9.3 fL (7.4-10.4); Monocytes # (auto) 0.69 K/uL (0.11-0.59); Monocytes % (auto) 9.7 %; Neutrophils # (auto) 4.91 K/uL (1.4-6.5); Neutrophils % (auto) 68.9 %; Platelet Count 207 K/uL (130-400); RDW Coefficient of Variation 16.7 % (11.5-14.5); RDW Standard Deviation 53.5 fL (36.4-46.3); Red Blood Count 3.78 M/uL (4.2-5.4); White Blood Count 7.13 K/uL (4.8-10.8)
[2021-08-29 01:54] LABS: Alanine Aminotransferase 46 (12-78); Albumin Level 2.9 gm/dl (3.4-5.0); Aspartate Aminotransferase 13 U/L (15-37); BUN Creatinine Ratio 22.6 (10-20); Blood Urea Nitrogen 28 mg/dl (7-18); Calcium 8.8 mg/dl (8.5-10.1); Carbon Dioxide 25 mmol/L (21-32); Chloride 107 mmol/L (98-107); Creatinine Clr Calc Pharmacy 35.5 ml/min; Est GFR (African American) 47.2 ml/min; Est GFR (Non-African American) 40.7 ml/min; Glucose 292 mg/dl (70-99); Magnesium 1.9 mg/dl (1.8-2.4); Potassium 4.7 mmol/L (3.5-5.1); Sodium 138 mmol/L (136-145)
[2021-08-29 02:05] LABS: Albumin Globulin Ratio 0.9 (0.9-2); Alkaline Phosphatase 53 U/L (45-117); Bilirubin,Total 0.3 mg/dl (0.2-1); Globulin 3.3 gm/dl (2.5-4.0); NT Pro B Type Natriuretic Pept 2894 pg/ml (0-1800); Total Protein 6.2 gm/dl (6.4-8.2); Troponin I < 0.015 ng/ml (0-0.045)
--- NOTE | 2021-08-29 02:17 | Emergency Department Note ---
History of Present Illness General Chief complaint: Chest Pain Stated complaint: Chest pain Time Seen by Provider: 08/29/21 01:09 Source: patient and EMS Mode of arrival: EMS Limitations: no limitations History of Present Illness Provider complaint: Chest pain, palpitations Maximum Pain Intensity: 0 Associated symptoms: + chest pain, + cough, + malaise and + shortness of breath; no fever/chills, no headaches, no loss of appetite or no nausea/vomiting Treatments prior to arrival: aspirin and other This is an 81-year-old female brought in by EMS from home due to concern for chest pain and palpitations. Patient states she had recently had cough and cold type symptoms which started on August 20. She states after they persisted for many days she went and saw her family doctor last week and was started on an antibiotic, prednisone, and she was given an albuterol inhaler. Patient denies any history of asthma or smoking. Patient states she has been taking the medications now since the and has not noticed any significant improvement. She states when she uses the inhaler she develops chest pain so she has not been using it as much. Patient also stated she was not sure if the prednisone could be contributing to the episodes of chest pain and palpitations so she stopped taking that as well. Patient does have a prior history of atrial fibrillation, and is anticoagulated. Patient states she was not tested for Covid or influenza last week. Patient denies any other recent medication changes. Patient states she did take 2 nitro at home and the pain started this evening which did help. She contacted 911 and on their arrival they gave her an aspirin as well as an additional spray of nitro. By arrival here patient had no further pain. She states she did feel some pain from her chest radiated up into her neck and jaw. She denies any shortness of breath. Pt seen during a time of high acuity and national emergency pandemic while wearing PPE. Home Medications Medication Instructions Recorded Confirmed Type acetaminophen 500 mg tablet 1,000 mg PO Q6H PRN 06/12/19 08/29/21 History atorvastatin 80 mg tablet 80 mg PO HS 06/12/19 08/29/21 History bimatoprost 0.01 % eye drops 1 drp OPB HS 06/12/19 08/29/21 History (Marion) clopidogrel 75 mg tablet 75 mg PO QAM 06/12/19 08/29/21 History fluticasone propionate 50 2 spray INTRANASAL DAILY 06/12/19 08/29/21 History mcg/actuation nasal spray,suspension (Flonase Allergy Relief) gabapentin 300 mg capsule See Rx Instructions .ROUTE .COMPLEX 06/12/19 08/29/21 History lactobacillus combination no.4 3 3,000 mmu cells PO QAM 06/12/19 08/29/21 History billion cell capsule (Probiotic) levothyroxine 25 mcg tablet 25 mcg PO DAILYBB 06/12/19 08/29/21 History multivitamin 1 tab PO QAM 06/12/19 08/29/21 History nitroglycerin 0.4 mg sublingual 0.4 mg SUBLINGUAL DIRECTED PRN 06/12/19 08/29/21 History tablet omeprazole 20 mg tablet,delayed 20 mg PO DAILY 06/12/19 08/29/21 History release ropinirole 0.25 mg tablet 0.25 mg PO HS 06/12/19 08/29/21 History metformin 500 mg tablet 500 mg PO BIDM 07/13/20 08/29/21 History cyanocobalamin (vitamin B-12) 1,000 mcg PO QAM 11/11/20 08/29/21 History 1,000 mcg tablet docusate sodium 100 mg tablet 100 mg PO BID PRN 11/11/20 08/29/21 History (Stool Softener) magnesium oxide 400 mg PO DAILY 11/11/20 08/29/21 History netarsudil 0.02 % eye drops 1 drp OPB HS 11/11/20 08/29/21 History (Rhopressa) amiodarone 200 mg tablet 100 mg PO DAILY 02/27/21 08/29/21 History aspirin 81 mg chewable tablet 81 mg PO DAILY 02/27/21 08/29/21 History evolocumab 140 mg/mL subcutaneous 140 mg SUBCUT .Q14 DAYS 02/27/21 08/29/21 History pen injector (Repatha SureClick) furosemide 20 mg tablet (Lasix) 20 mg PO .Q1-2 X WEEK PRN 02/27/21 08/29/21 History glipizide 5 mg tablet 5 - 10 mg PO DAILY 02/27/21 08/29/21 History isosorbide mononitrate 60 mg 60 mg PO DAILY 02/27/21 08/29/21 History tablet,extended release 24 hr metoprolol succinate 50 mg See Rx Instructions .ROUTE .COMPLEX 02/27/21 08/29/21 History tablet,extended release 24 hr warfarin 5 mg tablet See Rx Instructions .ROUTE .COMPLEX 02/27/21 08/29/21 History Cranberry Caps 360 mg PO DAILY 08/29/21 08/29/21 History albuterol sulfate 90 mcg/actuation 2 puff INHALATION Q4 PRN 08/29/21 08/29/21 History aerosol inhaler cefdinir 300 mg capsule 300 mg PO Q12 08/29/21 08/29/21 History diphenhydramine 25 2 tab PO HS PRN 08/29/21 08/29/21 History mg-acetaminophen 500 mg tablet (Tylenol PM Extra Strength) hydralazine 10 mg tablet 10 mg PO BID 08/29/21 08/29/21 History hydrocortisone 2.5 % topical cream 1 applic TOPICAL BID 08/29/21 08/29/21 History montelukast 10 mg tablet 10 mg PO DAILY 08/29/21 08/29/21 History phenazopyridine 100 mg tablet 100 mg PO TID PRN 08/29/21 08/29/21 History (Pyridium) Allergies Allergy/AdvReac Type Severity Reaction Status Date / Time empagliflozin Allergy Intermediate BLOOD IN Verified 08/29/21 02:28 [From Jardiance] URINE, BLADDER INFECTION carbamazepine Allergy Mild RASH Verified 08/29/21 02:28 oxaprozin Allergy Mild RASH/HIVES Verified 08/29/21 02:28 valproic acid Allergy Mild HEAD-TOE Verified 08/29/21 02:28 RASH Past Med/Surg History Medical History Cardiac murmur no longer since heart valve surgery 02/2019 Chronic back pain Diabetes mellitus, type 2 GERD (gastroesophageal reflux disease) Glaucoma Hyperlipidemia Hypertension Hypothyroidism Hypoxia, sleep related uses oxygen at hs 2.5 Laryngeal spasm On anticoagulant therapy on plavix daily On home oxygen therapy 2.5 LITER AT HS Osteoarthritis Restless leg syndrome Surgical History History of abdominal surgery for bowel obstruction History of aortic valve replacement 02/26/19 @ [facility] [place]--follows with Dr. Arredondo History of appendectomy History of cardiac cath x4 with a total of 4 stents--last--12/2018 @ [facility] [place] x1 DRUG ELUTING STENT History of colonoscopy History of esophagogastroduodenoscopy (EGD) History of heart artery stent a total of 4 stents--last--12/2018 @ [facility] [place] x1 DRUG ELUTING STENT History of hip surgery left 2 screws placed after total hip replacement History of lumbar laminectomy for spinal cord decompression x2 History of right cataract surgery History of tonsillectomy History of tooth extraction all teeth removed History of total hysterectomy with bilateral salpingo-oophorectomy (BSO) History of total left hip replacement History of total left knee replacement (TKR) History of total right knee replacement (TKR) Status post glaucoma surgery right eye Status post trigger finger release left hand Family History Mother Diabetes Osteoporosis Heart disease Grandmother (Maternal) Diabetes Father Heart disease Other Asthma No family history of adverse response to anesthesia Social History Smoking Status: Never smoker Second Hand Exposure: Yes ( A CHILD); Hx Alcohol Use: No Hx Substance Use: No Preferred Language: Armenian Communication Ability: Effective Human Resources Office Assistant Required: No Beliefs That Will Affect Care: None Current Living Situation: Spouse Current Living Situation Comment: Lives with Other Information That Helps Us Care for You: No Feels Safe at Home: Yes Safety Concerns: Feels Safe At This Time Assistive Devices: Cane, Denture - Upper, Denture - Lower, Glasses, Hearing Aid - Left, Hearing Aid - Right, Oxygen - at Night and Walker Review of Systems A total of 10 systems reviewed and were otherwise negative All systems reviewed & are unremarkable except as noted in HPI & below Physical Exam Vital Signs Vital Signs - 24 hr 08/29/21 01:22 08/29/21 02:30 08/29/21 03:25 Temperature 37.6 C H Temperature Source Oral Pulse Rate 108 H Pulse Rate [Apical] 112 H 74 Respiratory Rate 20 19 20 Respiratory Effort / Characteristics Non-Labored Spontaneous Non-Labored Spontaneous Non-Labored Spontaneous Respiratory Depth Normal Normal Normal Blood Pressure 142/69 H Blood Pressure [Right Arm] 139/66 120/60 Blood Pressure Mean 93 Blood Pressure Mean [Right Arm] 90 80 Blood Pressure Position Lying Blood Pressure Position [Right Arm] Pulse Oximetry 95 93 91 Oxygen Delivery Method Room Air Room Air Room Air Sepsis Recent Fever Within 48 Hours Yes Sepsis New/Unexplained Change in Mental Status N/A Sepsis Action Taken by Nursing No Action Required 08/29/21 04:34 08/29/21 05:38 Temperature Temperature Source Pulse Rate Pulse Rate [Apical] 78 111 H Respiratory Rate 20 20 Respiratory Effort / Characteristics Non-Labored Non-Labored Spontaneous Respiratory Depth Normal Normal Blood Pressure Blood Pressure [Right Arm] 123/66 117/76 Blood Pressure Mean Blood Pressure Mean [Right Arm] 85 89 Blood Pressure Position Blood Pressure Position [Right Arm] Lying Lying Pulse Oximetry 94 95 Oxygen Delivery Method Room Air Room Air Sepsis Recent Fever Within 48 Hours Sepsis New/Unexplained Change in Mental Status Sepsis Action Taken by Nursing GENERAL: alert, well appearing, well nourished, no distress, non-toxic EYE EXAM: normal conjunctiva, PERRL and EOM's grossly intact OROPHARYNX: no exudate, no erythema, lips, buccal mucosa, and tongue normal and mucous membranes are moist NECK: supple, no nuchal rigidity, no adenopathy, non-tender LUNGS: Clear to auscultation. Normal chest wall mechanics, no w/r/r HEART: no murmurs, S1 normal and S2 normal, appearance of A. fib on telemetry with RVR ABDOMEN: abdomen soft, non-tender, normo-active bowel sounds, no masses, no rebound or guarding. BACK: Back is symmetrical on inspection and there is no deformity, no midline tenderness, no CVA tenderness. SKIN: no rashes and no bruising UPPER EXTREMITIES: upper extremities are grossly normal. FROM, nml pulses b/l. LOWER EXTREMITIES: No pitting edema. FROM, nml pulses b/l. NEURO EXAM: Normal sensorium, cranial nerves II-XII grossly intact, normal speech, no gross weakness of arms, no gross weakness of legs. Gross sensation intact. Course Administered Medications Discontinued Medications Acetaminophen (Acetaminophen 325 Mg Tab) 650 mg PO NOW STA Stop: 08/29/21 05:37 Last Admin: 08/29/21 06:24 Dose: 650 mg Documented by: [id number] Furosemide (Furosemide 40 Mg/4 Ml Vial) 40 mg IV ONE ONE Stop: 08/29/21 02:29 Last Admin: 08/29/21 02:41 Dose: 40 mg Documented by: [id number] Sodium Chloride (Nss) 500 mls @ 80 mls/hr IV .Q6H15M PRIMO Stop: 09/28/21 01:29 Last Admin: 08/29/21 01:35 Dose: 80 mls/hr Documented by: [id number] Magnesium Sulfate/Dextrose (Magnesium Sulfate / D5w) 1 gm in 100 mls @ 50 mls/hr IV ONE STA Stop: 08/29/21 07:39 Last Admin: 08/29/21 06:24 Dose: 50 mls/hr Documented by: [id number] Ampicillin Sodium/Sulbactam Sodium 3,000 mg/ Sodium Chloride 108 mls @ 200 mls/hr IV NOW STA Stop: 08/29/21 06:50 Last Admin: 08/29/21 08:37 Dose: 200 mls/hr Documented by: [id number] Metoprolol Tartrate (Metoprolol Tartrate 1 Mg/Ml Vial) 5 mg IV NOW STA Stop: 08/29/21 03:06 Last Admin: 08/29/21 03:37 Dose: Not Given Documented by: [id number] Metoprolol Tartrate (Metoprolol Tartrate 1 Mg/Ml Vial) 2.5 mg IV NOW STA Stop: 08/29/21 05:48 Last Admin: 08/29/21 08:38 Dose: Not Given Documented by: [id number] Medical Decision Making Differential Diagnosis Differential diagnoses includes but is not limited to acute coronary syndrome, myocardial infarction, pericarditis, pulmonary embolus, aortic dissection, pneumonia, pneumothorax, musculoskeletal, shingles, esophageal. Medical Records Attestation: I reviewed the patient's medical records. Home Medications Current Medication List: was personally reviewed by me Laboratory Data Attestation: I reviewed the patient's lab results. Result diagrams: 08/29/21 01:08/29/21 01:26 Lab Results 08/29/21 08/29/21 08/29/21 Range/Units 01: 01: 01:26 WBC 7.13 (4.8-10.8) K/uL RBC 3.78 L (4.2-5.4) M/uL Hgb 10.5 L (12.0-16.0) g/dL Hct 33.2 L (37-47) % MCV 87.8 (80-100) fL MCH 27.8 (25-34) pg MCHC 31.6 L (32-36) g/dL RDW Std Deviation 53.5 H (36.4-46.3) fL RDW Coeff of Omid 16.7 H (11.5-14.5) % Plt Count 207 (130-400) K/uL MPV 9.3 (7.4-10.4) fL Immature Gran % (Auto) 0.3 % Neut % (Auto) 68.9 % Lymph % (Auto) 20.3 % [place] % (Auto) 9.7 % Eos % (Auto) 0.8 % Baso % (Auto) 0.0 % Neut # (Auto) 4.91 (1.4-6.5) K/uL Lymph # (Auto) 1.45 (1.2-3.4) K/uL [place] # (Auto) 0.69 H (0.11-0.59) K/uL Eos # (Auto) 0.06 (0-0.5) K/uL Baso # (Auto) 0.00 (0-0.2) K/uL Immature Gran # (Auto) 0.02 (0.00-0.02) K/uL PT (9.0-12.0) Seconds INR (0.9-1.1) Sodium 138 (136-145) mmol/L Potassium 4.7 (3.5-5.1) mmol/L Chloride 107 (98-107) mmol/L Carbon Dioxide 25 (21-32) mmol/L Anion Gap 6.0 (3-11) BUN 28 H (7-18) mg/dl Creatinine 1.24 H (0.6-1.2) mg/dl Est Cr Clr Drug Dosing 35.5 ml/min Est GFR ( Amer) 47.2 ml/min Est GFR (Non-Af Amer) 40.7 ml/min BUN/Creatinine Ratio 22.6 H (10-20) Glucose 292 H (70-99) mg/dl Calcium 8.8 (8.5-10.1) mg/dl Magnesium 1.9 (1.8-2.4) mg/dl Total Bilirubin 0.3 (0.2-1) mg/dl AST 13 L (15-37) U/L ALT 46 (12-78) Alkaline Phosphatase 53 (45-117) U/L Troponin I < 0.015 (0-0.045) ng/ml NT-Pro-B Natriuret Pep 2894 H (0-1800) pg/ml Total Protein 6.2 L (6.4-8.2) gm/dl Albumin 2.9 L (3.4-5.0) gm/dl Globulin 3.3 (2.5-4.0) gm/dl Albumin/Globulin Ratio 0.9 (0.9-2) TSH 3.050 (0.300-4.500) uIu/ml SARS-CoV-2 (PCR) NEGATIVE (Negative) Influenza Type A (PCR) Negative (Neg) Influenza Type B (PCR) Negative (Neg) RSV (RT-PCR) Negative (Neg) 08/29/21 Range/Units 01:26 WBC (4.8-10.8) K/uL RBC (4.2-5.4) M/uL Hgb (12.0-16.0) g/dL Hct (37-47) % MCV (80-100) fL MCH (25-34) pg MCHC (32-36) g/dL RDW Std Deviation (36.4-46.3) fL RDW Coeff of Omid (11.5-14.5) % Plt Count (130-400) K/uL MPV (7.4-10.4) fL Immature Gran % (Auto) % Neut % (Auto) % Lymph % (Auto) % Lau[place] % (Auto) % Eos % (Auto) % Baso % (Auto) % Neut # (Auto) (1.4-6.5) K/uL Lymph # (Auto) (1.2-3.4) K/uL [place] # (Auto) (0.11-0.59) K/uL Eos # (Auto) (0-0.5) K/uL Baso # (Auto) (0-0.2) K/uL Immature Gran # (Auto) (0.00-0.02) K/uL PT 28.2 H (9.0-12.0) Seconds INR 3.0 H (0.9-1.1) Sodium (136-145) mmol/L Potassium (3.5-5.1) mmol/L Chloride (98-107) mmol/L Carbon Dioxide (21-32) mmol/L Anion Gap (3-11) BUN (7-18) mg/dl Creatinine (0.6-1.2) mg/dl Est Cr Clr Drug Dosing ml/min Est GFR ( Amer) ml/min Est GFR (Non-Af Amer) ml/min BUN/Creatinine Ratio (10-20) Glucose (70-99) mg/dl Calcium (8.5-10.1) mg/dl Magnesium (1.8-2.4) mg/dl Total Bilirubin (0.2-1) mg/dl AST (15-37) U/L ALT (12-78) Alkaline Phosphatase (45-117) U/L Troponin I (0-0.045) ng/ml NT-Pro-B Natriuret Pep (0-1800) pg/ml Total Protein (6.4-8.2) gm/dl Albumin (3.4-5.0) gm/dl Globulin (2.5-4.0) gm/dl Albumin/Globulin Ratio (0.9-2) TSH (0.300-4.500) uIu/ml SARS-CoV-2 (PCR) (Negative) Influenza Type A (PCR) (Neg) Influenza Type B (PCR) (Neg) RSV (RT-PCR) (Neg) Imaging Data Radiologist's Impression: Chest X-Ray 08/29/21 01:26 SINGLE VIEW CHEST CLINICAL HISTORY: Atypical chest pain. FINDINGS: An AP, portable, upright chest radiograph is compared to study dated 02/28/2021 and correlated with chest CT dated 02/27/2021. The heart is enlarged noting atherosclerotic calcification of the thoracic aorta. The pulmonary vasculature is noncongested. There is evidence of previous cardiac valve surgery. A coronary artery stent is noted. Chronic interstitial thickening is similar to previous. There is bibasilar scarring/atelectasis. The lungs and pleural spaces are otherwise clear. No pneumothorax is seen. The skeletal structures are osteopenic. The bony thorax is grossly intact. IMPRESSION: Cardiomegaly with no acute cardiopulmonary abnormality. ACT 112: Negative or not required by law. Electronically signed by: Zachary Ignacio M.D. 08/29/2021 7:47 AM ECG Data Attestation: I personally reviewed and interpreted this ECG as follows: Indication: + palpitations Rate (beats per minute): 114 Rhythm: + atrial fibrillation ECG Intervals/blocks: + Right Bundle branch block and + Prolonged QT ECG [place]: + Left axis deviation ECG ST segments: + Nonspecific ST abnormalities Additional Comments: Repeat EKG at 0 338 is sinus rhythm at 75 bpm, right bundle branch block with a QRS duration of 136, QTC improved to 582, normal axis, no acute ST/T wave changes MDM Narrative This is an 81-year-old female who presents due to concern for chest pain and palpitations. Patient found to have atrial fibrillation with RVR both for EMS and on arrival here. Chest pain resolved with patient's home nitro and additional nitro from EMS as well as aspirin given. Patient with recent URI w hich I suspect likely contributed to recurrence of atrial fibrillation and symptomatic RVR. I suspect patient's intermittent rapid heart rate has been contributing to chest pain. Patient does have an underlying history of CAD. Patient's initial troponin negative, however BNP markedly elevated. No priors for comparison. Patient did have an echo approximately a year ago that was reassuring. Patient was given a dose of Lasix in addition here as she does take a diuretic daily. No overt evidence of CHF otherwise. Given episode of pain and recurrence of A. fib with RVR after patient broke to normal sinus again with recurrent symptoms, significant cardiac history, and elevated BNP, case dis cussed with hospitalist for additional evaluation and management. An order was placed for continuous cardiac monitoring. The monitor shows a rate of _112_ with _atrial fibrillation_ rhythm. Impression & Plan Chest pain, Palpitation, Atrial fibrillation with RVR, Chronic anticoagulation Discharge Plan Visit Data Chief Complaint: Chest Pain Stated Complaint: Chest pain ED Provider: Skylar Mays Discharge Problem: Chest pain, Palpitation, Atrial fibrillation with RVR, Chronic anticoagulation Discharge Problem: Chest pain Qualifiers: Chest pain type: unspecified Qualified Code(s): R07.9 - Chest pain, unspecified
[2021-08-29] MEDS ORDERED: FUROSEMIDE 40 MG/4 ML VIAL IV ONE (02:28)
[2021-08-29] MEDS ORDERED: METOPROLOL TARTRATE 1 MG/ML VIAL IV STA ×2 (03:05→05:47)
[2021-08-29 03:14] LABS: Influenza A virus by PCR Negative (Neg); Influenza B virus by PCR Negative (Neg); RSV by PCR Negative (Neg); SARS CoV2 RNA(COVID-19) InHosp NEGATIVE (Negative)
[2021-08-29 04:02] LABS: Prothrombin Time 28.2 Seconds (9.0-12.0)
[2021-08-29] MEDS ORDERED: ACETAMINOPHEN 325 MG TAB PO STA (05:36)
[2021-08-29] MEDS ORDERED: MAGNESIUM SULFATE / D5W 1 GM/100 ML BAG IV STA (05:40)
[2021-08-29] MEDS ORDERED: AMPICILLIN/SULBACTAM SOD 3,000 MG in 0.9 % SODIUM CHLORIDE 100 ML IV STA (06:18)
--- NOTE | 2021-08-29 06:18 | History & Physical Report ---
Date of Service August 29, 2021 Assessment & Plan (1) Afib: Plan: Recurrent A. fib with uncontrolled rates, INR therapeutic on Coumadin Secondary to possible aspiration pneumonitis, hx laryngospasm as per records, possible esophageal dysfunction Possible sepsis Chest pain secondary to above rule out ACS hx CAD sp stent chronic diastolic HF (EF 50-54%, TTE 2020), patient euvolemic to dry valvular heart disease ( status post TAVR, paravalvular aortic valve pro sthesis regurgitation, moderate MS/TR, mild MR), hx PVD status post surgery hypertension, stable hyperlipidemia on statin Rx pulmonary hypertension/asthma /COPD/RLD as per records DM2 on oral medications, hyperglycemic likely secondary to recent steroid Rx; well-controlled as of recent hemoglobin A1c of 6.02 May 2021 hypothyroidism, euthyroid as of today's TSH chronic anemia, hemoglobin at baseline PCU Titrate home beta-deny and amiodarone CS, check lactic acid; Unasyn Aspiration precautions, swallow eval Monitor creatinine response to IVF Follow troponin Cardiology consult Re: Recurrent AF, chest pain Basal insulin, ISS BG goal 1 10-1 40, carb count coverage, update hemoglobin A1c DVT prophylaxis. Coumadin INR goal between 2 and 3 if no procedural intervention from Cardiology Full code Text document was generated using [employer] voice recognition software. It may contain grammatical or spelling errors. Kindly contact undersigned for clarification of any documentation item in question. History of Present Illness Chief Complaint: Palpitations, chest pain Primary Care Provider: Natalio Moseley MD History obtained from patient and records. Medical history is significant for chronic diastolic HF (EF 50-54%, TTE 2020), valvular heart disease ( status post TAVR, paravalvular aortic valve prosthesis regurgitation, moderate MS/TR, mild MR), CAD status post stenting, PVD status post surgery, PAF on Coumadin, hypertension, hyperlipidemia, pulmonary hypertension/asthma /COPD/RLD as per records, DM2 on oral medications, hypothyroidism, chronic anemia (baseline hemoglobin 10 ), history laryngospasm as per records, mood disorder. Last confinement September 2017 for pneumonia. Possible aspiration pneumonitis on CTA. No overt signs on speech eval as per documentation. Last week, patient noted cough symptoms productive of clear to yellowish sputum after choking on her saliva. Some wheezing at home with runny nose. No known recent COVID-19 contacts. Patient has completed COVID-19 vaccination. Patient seen at PCPs office 5 days ago. Chest x-ray negative for pneumonia. Patient prescribed cefdinir and prednisone course for possible sinusitis. Albuterol inhaler prescribed for wheezing. A few days after taking medication, patient noted palpitations with substernal discomfort going to her neck similar to heart attack episode in the past. Cough not really improved as per patient. No fluid retention or weight gain as per patient. Compliant with cardiac medications. Patient stopped albuterol and prednisone medications following her daughter's advice. Patient consulted ER for worsening symptoms. Recurrent A. fib noted at the ER. IV Lasix administered at the ER. MEDICAL HISTORY: As above. SURGERIES: Knee surgery, hip surgery, carpal tunnel surgery, back surgery, alicia ract surgery, TAVR, thromboendarterectomy, BOAZ/BSO FAMILY HISTORY: There is a family history of heart disease and diabetes. PERSONAL AND SOCIAL HISTORY: Nonsmoker, no chronic intake of alcohol, retired [employer] employee. Allergies Allergy/AdvReac Type Severity Reaction Status Date / Time empagliflozin Allergy Intermediate BLOOD IN Verified 08/29/21 02:28 [From Jardiance] URINE, BLADDER INFECTION carbamazepine Allergy Mild RASH Verified 08/29/21 02:28 oxaprozin Allergy Mild RASH/HIVES Verified 08/29/21 02:28 valproic acid Allergy Mild HEAD-TOE Verified 08/29/21 02:28 RASH Home Medications Medication Instructions Recorded Confirmed Type acetaminophen 500 mg tablet 1,000 mg PO Q6H PRN 06/12/19 08/29/21 History atorvastatin 80 mg tablet 80 mg PO HS 06/12/19 08/29/21 History bimatoprost 0.01 % eye drops 1 drp OPB HS 06/12/19 08/29/21 History (Lumigan) clopidogrel 75 mg tablet 75 mg PO QAM 06/12/19 08/29/21 History fluticasone propionate 50 2 spray INTRANASAL DAILY 06/12/19 08/29/21 History mcg/actuation nasal spray,suspension (Flonase Allergy Relief) gabapentin 300 mg capsule See Rx Instructions .ROUTE .COMPLEX 06/12/19 08/29/21 History lactobacillus combination no.4 3 3,000 mmu cells PO QAM 06/12/19 08/29/21 History billion cell capsule (Probiotic) levothyroxine 25 mcg tablet 25 mcg PO DAILYBB 06/12/19 08/29/21 History multivitamin 1 tab PO QAM 06/12/19 08/29/21 History nitroglycerin 0.4 mg sublingual 0.4 mg SUBLINGUAL DIRECTED PRN 06/12/19 08/29/21 History tablet omeprazole 20 mg tablet,delayed 20 mg PO DAILY 06/12/19 08/29/21 History release ropinirole 0.25 mg tablet 0.25 mg PO HS 06/12/19 08/29/21 History metformin 500 mg tablet 500 mg PO BIDM 07/13/20 08/29/21 History cyanocobalamin (vitamin B-12) 1,000 mcg PO QAM 11/11/20 08/29/21 History 1,000 mcg tablet docusate sodium 100 mg tablet 100 mg PO BID PRN 11/11/20 08/29/21 History (Stool Softener) magnesium oxide 400 mg PO DAILY 11/11/20 08/29/21 History netarsudil 0.02 % eye drops 1 drp OPB HS 11/11/20 08/29/21 History (Rhopressa) amiodarone 200 mg tablet 100 mg PO DAILY 02/27/21 08/29/21 History aspirin 81 mg chewable tablet 81 mg PO DAILY 02/27/21 08/29/21 History evolocumab 140 mg/mL subcutaneous 140 mg SUBCUT .Q14 DAYS 02/27/21 08/29/21 History pen injector (Repatha SureClick) furosemide 20 mg tablet (Lasix) 20 mg PO .Q1-2 X WEEK PRN 02/27/21 08/29/21 History glipizide 5 mg tablet 5 - 10 mg PO DAILY 02/27/21 08/29/21 History isosorbide mononitrate 60 mg 60 mg PO DAILY 02/27/21 08/29/21 History tablet,extended release 24 hr metoprolol succinate 50 mg See Rx Instructions .ROUTE .COMPLEX 02/27/21 08/29/21 History tablet,extended release 24 hr warfarin 5 mg tablet See Rx Instructions .ROUTE .COMPLEX 02/27/21 08/29/21 History Cranberry Caps 360 mg PO DAILY 08/29/21 08/29/21 History albuterol sulfate 90 mcg/actuation 2 puff INHALATION Q4 PRN 08/29/21 08/29/21 History aerosol inhaler cefdinir 300 mg capsule 300 mg PO Q12 08/29/21 08/29/21 History diphenhydramine 25 2 tab PO HS PRN 08/29/21 08/29/21 History mg-acetaminophen 500 mg tablet (Tylenol PM Extra Strength) hydralazine 10 mg tablet 10 mg PO BID 08/29/21 08/29/21 History hydrocortisone 2.5 % topical cream 1 applic TOPICAL BID 08/29/21 08/29/21 History montelukast 10 mg tablet 10 mg PO DAILY 08/29/21 08/29/21 History phenazopyridine 100 mg tablet 100 mg PO TID PRN 08/29/21 08/29/21 History (Pyridium) Past Med/Surg History Medical History Cardiac murmur no longer since heart valve surgery 02/2019 Chronic back pain Diabetes mellitus, type 2 GERD (gastroesophageal reflux disease) Glaucoma Hyperlipidemia Hypertension Hypothyroidism Hypoxia, sleep related uses oxygen at hs 2.5 Laryngeal spasm On anticoagulant therapy on plavix daily On home oxygen therapy 2.5 LITER AT HS Osteoarthritis Restless leg syndrome Surgical History History of abdominal surgery for bowel obstruction History of aortic valve replacement [place] [facility] [place]follows with Dr. Arredondo History of appendectomy History of cardiac cath x4 with a total of 4 stents--last--12/2018 [place] [facility] [place] ELUTING STENT History of colonoscopy History of esophagogastroduodenoscopy (EGD) History of heart artery stent a total of 4 stents--last--12/2018 @ [facility] [place] DRUG ELUTING STENT History of hip surgery left 2 screws placed after total hip replacement History of lumbar laminectomy for spinal cord decompression x2 History of right cataract surgery History of tonsillectomy History of tooth extraction all teeth removed History of total hysterectomy with bilateral salpingo-oophorectomy (BSO) History of total left hip replacement History of total left knee replacement (TKR) History of total right knee replacement (TKR) Status post glaucoma surgery right eye Status post trigger finger release left hand Family History Mother Diabetes Osteoporosis Heart disease Grandmother (Maternal) Diabetes Father Heart disease Other Asthma No family history of adverse response to anesthesia Social History Smoking Status: Never smoker Second Hand Exposure: Yes ( A CHILD); Hx Alcohol Use: No Hx Substance Use: No Preferred Language: Frisian Communication Ability: Effective Elastic Assembler Required: No Beliefs That Will Affect Care: None Current Living Situation: Spouse Feels Safe at Home: Yes Assistive Devices: Cane and Walker Review of Systems Review of Systems: As per HPI, all 10 systems reviewed, all other ROS negative Physical Exam Physical Exam: GENERAL: Comfortable, pleasant, looks younger than stated age, obese, no respiratory distress SKIN: Pallor, warm HEENT: Bespectacled, pale palpebral conjunctivae, no ptosis, moist buccal mucosa NECK : Supple, no tenderness CHEST : Decreased breath sounds with occasional expiratory wheezes, no tenderness HEART : Irregular, systolic murmur ABDOMEN: Some distention, nontender EXTREMITIES : Minimal LE swelling, no LE tenderness, no other conspicuous deformities noted NEUROLOGIC : Coherent, no facial asymmetry, no other gross focality Results & Data Results & Data ([facility]) Vital Signs (Past 12 Hours) Vital Signs Temp Pulse Pulse Resp BP BP Pulse Ox 08/29/21 05:38 111 H 20 117/76 95 08/29/21 04:34 78 20 123/66 94 08/29/21 03:25 74 20 120/60 91 08/29/21 02:30 112 H 19 139/66 93 08/29/21 01:22 37.6 C H 108 H 20 142/69 H 95 Laboratory Results Laboratory Results WBC 7.13 K/uL (4.8-10.8) 08/29/21 01:26 RBC 3.78 M/uL (4.2-5.4) L 08/29/21 01:26 Hgb 10.5 g/dL (12.0-16.0) L 08/29/21 01:26 Hct 33.2 % (37-47) L 08/29/21 01:26 MCV 87.8 fL (80-100) 08/29/21 01:26 MCH 27.8 pg (25-34) 08/29/21 01:26 MCHC 31.6 g/dL (32-36) L 08/29/21 01: RDW Std Deviation 53.5 fL (36.4-46.3) H 08/29/21: RDW Coeff of Omid 16.7 % (11.5-14.5) H 08/29/21: Plt Count 207 K/uL (130-400) 08/29/21 01: MPV 9.3 fL (7.4-10.4) 08/29/21 01:26 Immature Gran % (Auto) 0.3 % 08/29/21 01: Neut % (Auto) 68.9 % 08/29/21 01:26 Lymph % (Auto) 20.3 % 08/29/21: [place] % (Auto) 9.7 % 08/29/21: Eos % (Auto) 0.8 % 08/29/21: Baso % (Auto) 0.0 % 08/29/21: Neut # (Auto) 4.91 K/uL (1.4-6.5) 08/29/21 01:26 Lymph # (Auto) 1.45 K/uL (1.2-3.4) 08/29/21 01:26 [place] # (Auto) 0.69 K/uL (0.11-0.59) H 08/29/21: Eos # (Auto) 0.06 K/uL (0-0.5) 08/29/21 01:26 Baso # (Auto) 0.00 K/uL (0-0.2) 08/29/21: Immature Gran # (Auto) 0.02 K/uL (0.00-0.02) 08/29/21 01: PT 28.2 Seconds (9.0-12.0) H 08/29/21 01:26 INR 3.0 (0.9-1.1) H 08/29/21 01:26 Sodium 138 mmol/L (136-145) 08/29/21 01: Potassium 4.7 mmol/L (3.5-5.1) 08/29/21 01: Chloride 107 mmol/L (98-107) 08/29/21: Carbon Dioxide 25 mmol/L (21-32) 01/02/22 01:26 Anion Gap 6.0 (3-11) 08/29/21 01:26 BUN 28 mg/dl (7-18) H 08/29/21 01:26 Creatinine 1.24 mg/dl (0.6-1.2) H 08/29/21 01:26 Est Cr Clr Drug Dosing 35.5 ml/min 08/29/21 01:26 Est GFR ( Amer) 47.2 ml/min 08/29/21: Est GFR (Non-Af Amer) 40.7 ml/min 08/29/21 01:26 BUN/Creatinine Ratio 22.6 (10-20) H 08/29/21:26 Glucose 292 mg/dl (70-99) H 08/29/21:26 Calcium 8.8 mg/dl (8.5-10.1) 08/29/21: Magnesium 1.9 mg/dl (1.8-2.4) 08/29/21: Total Bilirubin 0.3 mg/dl (0.2-1) 08/29/21: AST 13 U/L (15-37) L 08/29/21:26 ALT 46 (12-78) 08/29/21: Alkaline Phosphatase 53 U/L (45-117) 08/29/21:26 Troponin I < 0.015 ng/ml (0-0.045) 08/29/21: NT-Pro-B Natriuret Pep 2894 pg/ml (0-1800) H 08/29/21 01:26 Total Protein 6.2 gm/dl (6.4-8.2) L 08/29/21 01:26 Albumin 2.9 gm/dl (3.4-5.0) L 08/29/21:26 Globulin 3.3 gm/dl (2.5-4.0) 08/29/21: Albumin/Globulin Ratio 0.9 (0.9-2) 08/29/21 01:26 TSH 3.050 uIu/ml (0.300-4.500) 08/29/21 01:26 SARS-CoV-2 (PCR) NEGATIVE (Negative) 08/29/21:26 Influenza Type A (PCR) Negative (Neg) 08/29/21 01:26 Influenza Type B (PCR) Negative (Neg) 08/29/21 01:26 RSV (RT-PCR) Negative (Neg) 08/29/21 01:26 Diagnostic Findings Chest x-ray as per my interpretation cardiomegaly EKG as per my interpretation : Rate 75, NSR, normal axis, RBBB, no ischemia
[2021-08-29] MEDS ORDERED: AMIODARONE 200 MG TAB PO STA (06:21)
[2021-08-29] MEDS ORDERED: BENZONATATE 100 MG CAPSULE PO STA (06:22)
[2021-08-29] MEDS ORDERED: INSULIN GLARGINE SOLOSTAR 100 UNITS/ML 3 ML PEN SC STA (06:33)
[2021-08-29 06:38] LABS: Appearance Urine Clear (Clear); Bacteria Urine Automated Negative (Negative); Bilirubin Urine Negative (Negative); Blood Urine Negative (Negative); Color Urine Yellow; Glucose Urine UA Negative (Negative); Ketones Urine Negative (Negative); Leukocyte Esterase Urine Trace (Negative); Nitrite Urine Negative (Negative); Protein Urine Negative (Negative); RBC Urine Automated 0-4 /hpf (0-4); Specific Gravity Urine 1.007 (1.000-1.030); Urobilinogen Urine Negative (Negative); pH Urine 5.5 (4.5-7.5)
[2021-08-29] MEDS ORDERED: SODIUM CHLORIDE 0.9% 500 ML IV STA (06:56)
[2021-08-29] MEDS ORDERED: XOPENEX/ATROVENT 1.25mg/0.5MG NEB COMBO NEB PRN (07:43)
[2021-08-29] MEDS ORDERED: IPRATROPIUM BROMIDE NEB SOLN 0.02% 2.5 ML VIAL INH PRN (07:45)
[2021-08-29] MEDS ORDERED: LEVALBUTEROL 1.25MG/0.5ML NEB INH PRN (07:45)
--- NOTE | 2021-08-29 07:49 | XRay Report ---
SINGLE VIEW CHEST CLINICAL HISTORY: Atypical chest pain. FINDINGS: An AP, portable, upright chest radiograph is compared to study dated 02/28/2021 and correlate d with chest CT dated 02/27/2021. The heart is enlarged noting atherosclerotic calcification of the tho racic aorta. The pulmonary vasculature is noncongested. There is evidence of previous cardiac valve s urgery. A coronary artery stent is noted. Chronic interstitial thickening is similar to previous. The re is bibasilar scarring/atelectasis. The lungs and pleural spaces are otherwise clear. No pneumothor ax is seen. The skeletal structures are osteopenic. The bony thorax is grossly intact. IMPRESSION: Cardiomegaly with no acute cardiopulmonary abnormality. ACT 112: Negative or not required by law. Electronically signed by: Zachary Ignacio M.D. 08/29/2021 7:47 AM
[2021-08-29] MEDS ORDERED: CARBOHYDRATES FOR HYPOGLYCEMIA PO PRN (10:02)
[2021-08-29] MEDS ORDERED: NITROGLYCERIN SL 0.4 MG/TAB TAB SL PRN ×2 (10:02)
[2021-08-29] MEDS ORDERED: GLUCAGON FOR INJ 1 MG VIAL SQ PRN (10:02)
[2021-08-29] MEDS ORDERED: SODIUM CHLORIDE 0.9% 1000ML 1,000 ML IV ONE (10:02)
[2021-08-29] MEDS ORDERED: DEXTROSE 50% 50 ML SYRINGE IV PRN (10:02)
[2021-08-29] MEDS ORDERED: GLUCOSE 10 TABS/TUBE PO PRN (10:02)
[2021-08-29] MEDS ORDERED: GLUCOSE 40% GEL 15 GM TUBE PO PRN (10:02)
[2021-08-29] MEDS ORDERED: PHENAZOPYRIDINE HCL 100 MG TAB PO PRN (10:02)
[2021-08-29] MEDS ORDERED: DOCUSATE SODIUM 100 MG CAP PO PRN (10:10)
[2021-08-29] MEDS ORDERED: AMPICILLIN/SULBACTAM CONSULT ACTIVE PRN (10:29)
[2021-08-29] MEDS ORDERED: BENZONATATE 100 MG CAPSULE ONE (10:46)
[2021-08-29] MEDS: CLOPIDOGREL BISULFATE 75 MG TAB PO SCH (12:04)
[2021-08-29] MEDS: ASPIRIN 81 MG CHEW PO SCH (12:04)
[2021-08-29] MEDS: PANTOprazole 40 MG TAB PO SCH (12:05)
[2021-08-29] MEDS: ISOSORBIDE MONO EXTENDED REL 60 MG TABCR PO SCH (12:05)
[2021-08-29] MEDS: LEVOTHYROXINE SODIUM 25 MCG TABLET PO SCH (12:05)
[2021-08-29] MEDS: MONTELUKAST SODIUM 10 MG TABLET PO SCH (12:06)
[2021-08-29] MEDS: FLUTICASONE PROPIONATE NA SPR 16 GM BTL SCH (12:06)
[2021-08-29] MEDS: MAGNESIUM OXIDE 400 MG TAB PO SCH (12:06)
[2021-08-29] MEDS: MULTIVITAMIN TAB PO SCH (12:06)
[2021-08-29] MEDS: CYANOCOBALAMIN 500 MCG TABLET (VITAMIN B-12) PO SCH (12:07)
[2021-08-29] MEDS: METOPROLOL SUCC 25MG EXT REL TAB PO SCH ×2 (12:07→20:04)
[2021-08-29] MEDS: GABAPENTIN 300 MG CAP PO SCH (12:07)
[2021-08-29] MEDS: hydrALAZINE 10 MG TAB PO SCH ×2 (12:07→20:05)
--- NOTE | 2021-08-29 12:22 | Hospitalist Progress Note ---
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 Of note, patient was admitted September 2017 for pneumonia, likely aspiration pneumonitis and CT, no overt signs and a speech eval as per documentation. This time, patient went to PCP due to cough productive of yellowish sputum after choking on her saliva 5 days DATA PROCESSING CONTROL CLERK and was prescribed cefdinir/prednisone/albuterol inhaler. #. 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 Patient reports cough not improving much, but reports feeling better on the morning after arrival. Patient reports stopping albuterol and prednisone medication following her daughter's advice. Admitting troponin x2 - so far Admitting EKG a flutter with variable AV block, rate of 114. ST depression in lead II, ?Elevation in V1 Follow-up EKG: NSR, 75 bpm, old inferior infarct. Admitting CXR: Cardiomegaly with no acute cardiopulmonary abnormality. Patient received IV metoprolol, IV Lasix, Unasyn, magnesium IV in the ED. Likely triggered by aspiration pneumonitis. INR therapeutic at admission, continue with amiodarone and Coumadin. Cardiology on board: Appreciate recommendation. #. Likely aspiration pneumonitis History of laryngospasm, patient reports choking on saliva/food in the recent past History of concern for aspiration pneumonitis in her previous confinement for pneumonia. Patient reporting cough with yellow sputum not getting better after the day of arrival. Patient feels better currently. Patient posted against Covid, no history of Covid. Continue with Unasyn 08/29/2021, speech eval --> await recommendations #. Chest pain Chest pain associated with palpitation, radiating to jaw was the reason for presentation EKG as above Troponin trending, negative so far for 2 trends Cardiology consulted, appreciate recommendation. #. Other chronic medical conditions: CAD, CHF, PVD status post surgery, HTN, HLD, DM2 CAD status post stent, 2020 TTE with EF of 50 to 54%, patient euvolemic to dry at presentation. Resume home meds as able, hold oral hypoglycemics, on sliding scale insulin. A1c 6.02 May 2021 On Coumadin for A. fib. Full code Admission and Anticipated Discharge Date Admission Date: August 29, 2021 Subjective Patient was sitting up in bed, on room air, NAD, no new acute events overnight. Patient reports feeling better. Reports cough productive of yellow sputum, which has been getting slightly better. Patient denies fever/chills/headache/further palpitation or chest pain/other review of symptoms. Patient reports choking on food//saliva in the past. Speech therapy consult has been placed. Physical Exam Physical Exam: GENERAL: Alert and oriented x3. NAD, on RA. HEENT: No pallor, no icterus. Pupils equal, round and reactive to light. Oral mucosa moist. NECK: No JVD, no neck masses. HEART: S1 and S2 heard. regular rate and rhythm. No murmur, no gallop. RESPIRATORY SYSTEM: Normal AP diameter. No accessory muscle use. No wheezing, no crackles. ABDOMEN: Soft, bowel sounds present, nontender, no distention. CENTRAL NERVOUS SYSTEM: No facial droop. Speech is clear. Obeys simple commands. Moves extremities. EXTREMITIES: Trace BLE edema, no erythema seen. Results & Data Results & Data ([facility]) Vital Signs (Past 12 Hours) Vital Signs Temp Pulse Pulse Resp BP BP Pulse Ox 08/29/21 10:20 36.6 C 71 149/79 H 93 08/29/21 08:43 36.4 C L 68 18 148/75 H 96 08/29/21 07:00 36.4 C L 62 20 148/75 H 96 08/29/21 05:38 111 H 20 117/76 95 08/29/21 04:34 78 20 123/66 94 08/29/21 03:25 74 20 120/60 91 08/29/21 02:30 112 H 19 139/66 93 08/29/21 01:22 37.6 C H 108 H 20 142/69 H 95 (1) Chest pain Chest pain type: unspecified Qualified Code(s): R07.9 - Chest pain, unspecified
--- NOTE | 2021-08-29 12:24 | Cardiology Consultation ---
Date of Consultation August 29, 2021 Assessment & Plan (1) Chest pain: (2) Atrial fibrillation with RVR: (3) Chronic anticoagulation: (4) ASCVD (arteriosclerotic cardiovascular disease): (5) COPD (chronic obstructive pulmonary disease): (6) S/P TAVR (transcatheter aortic valve replacement): (7) CAD (coronary artery disease): The patient has a complex history as outlined below. She is currently in sinus rhythm. Her main complaints are a persistent cough and there is some mention of chronic aspiration as well as vocal cord dysfunction in the medical record. 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 Her chest x-ray by my review has no significant findings. I think it would be worthwhile if we have pulmonary see her for an evaluation. History of Present Illness Attending Physician: Lisa Ballard MD History of Present Illness This is a 81-year-old female who has an extremely complex past cardiac history as outlined below. As a result, she has chronic angina and unfortunately her recently she has been having paroxysmal atrial fibrillation which worsens her angina. Recently she was referred to [facility] being symptomatic from the atrial fibrillation. She is currently on anticoagulation and amiodarone at 100 mg daily. Recently the patient has had a chronic and persistent cough and although I do not have CT of the chest reported in the hospital record, the H&P mentions a previous CT of the chest that suggest possible aspiration pneumonitis. Earlier this week she was seen by her arc welder apprentice who added an inhaler and started her on oral steroids. She found no improvement and her cough persisted. She then started to have episodes of atrial fibrillation with angina and presented to the hospital. Past cardiac history: 1.ASCVD 1.Status post PCI of the proximal LAD with a DENISE on on May 19, 2017 2.Status post PCI of the mid LAD with a 2.75 x 26 mm Resolute Segundo drug eluting stent (overlapping with the previously placed Xience drug eluting) on 01/25/2019 3.Presentation in November 2020 with crescendo angina. Diagnostic cardiac catheterization demonstrating a 95% mid LAD stenosis distal to the prior stent with intervention complicated by significant dissection of the left main coronary artery extending into the left circumflex and left anterior descending. The mid LCX into the OM3 was stented with a drug eluting stent with resultant KHARI grade III flow, residual nonflow limiting dissection in the proximal LCX. Attempts to cross the LAD occlusion were unsuccessful. 2.Paroxysmal atrial fibrillation with a rapid ventricular response first documented while hospitalized at [facility] in November 2020, highly symptomatic, significant angina symptoms 3.Severe aortic valve stenosis status post February 26, 2019 TAVR with a #23 mm Najera Sade S3 Valve on 02/26/2019. 4.Calcific mitral stenosis, moderate or greater. 5.Carotid occlusive disease. Status post left carotid endarterectomy in 05/2013. Status post June 2016 right carotid endarterectomy . 6.Chronic obstructive and restrictive pulmonary disease, asthma 7.Hypertension. 8.Hyperlipidemia. 9.Diabetes mellitus with neuropathy. 10.Chronic laryngospasm. 11.Hiatal hernia. 12.Esophageal reflux. 13.Hypothyroidism. 14.RLS. 15.Mechanical fall February 27, 2021 multiple right posterior rib fractures, small hemothorax [facility] Allergies Allergy/AdvReac Type Severity Reaction Status Date / Time empagliflozin Allergy Intermediate BLOOD IN Verified 08/29/21 02:28 [From Jardiance] URINE, BLADDER INFECTION carbamazepine Allergy Mild RASH Verified 08/29/21 02:28 oxaprozin Allergy Mild RASH/HIVES Verified 08/29/21 02:28 valproic acid Allergy Mild HEAD-TOE Verified 08/29/21 02:28 RASH Home Medications Medication Instructions Recorded Confirmed Type acetaminophen 500 mg tablet 1,000 mg PO Q6H PRN 06/12/19 08/29/21 History atorvastatin 80 mg tablet 80 mg PO HS 06/12/19 08/29/21 History bimatoprost 0.01 % eye drops 1 drp OPB HS 06/12/19 08/29/21 History (Lumigan) clopidogrel 75 mg tablet 75 mg PO QAM 06/12/19 08/29/21 History fluticasone propionate 50 2 spray INTRANASAL DAILY 06/12/19 08/29/21 History mcg/actuation nasal spray,suspension (Flonase Allergy Relief) gabapentin 300 mg capsule See Rx Instructions .ROUTE .COMPLEX 06/12/19 08/29/21 History lactobacillus combination no.4 3 3,000 mmu cells PO QAM 06/12/19 08/29/21 History billion cell capsule (Probiotic) levothyroxine 25 mcg tablet 25 mcg PO DAILYBB 06/12/19 08/29/21 History multivitamin 1 tab PO QAM 06/12/19 08/29/21 History nitroglycerin 0.4 mg sublingual 0.4 mg SUBLINGUAL DIRECTED PRN 06/12/19 08/29/21 History tablet omeprazole 20 mg tablet,delayed 20 mg PO DAILY 06/12/19 08/29/21 History release ropinirole 0.25 mg tablet 0.25 mg PO HS 06/12/19 08/29/21 History metformin 500 mg tablet 500 mg PO BIDM 07/13/20 08/29/21 History cyanocobalamin (vitamin B-12) 1,000 mcg PO QAM 11/11/20 08/29/21 History 1,000 mcg tablet docusate sodium 100 mg tablet 100 mg PO BID PRN 11/11/20 08/29/21 History (Stool Softener) magnesium oxide 400 mg PO DAILY 11/11/20 08/29/21 History netarsudil 0.02 % eye drops 1 drp OPB HS 11/11/20 08/29/21 History (Rhopressa) amiodarone 200 mg tablet 100 mg PO DAILY 02/27/21 08/29/21 History aspirin 81 mg chewable tablet 81 mg PO DAILY 02/27/21 08/29/21 History evolocumab 140 mg/mL subcutaneous 140 mg SUBCUT .Q14 DAYS 02/27/21 08/29/21 History pen injector (Repatha SureClick) furosemide 20 mg tablet (Lasix) 20 mg PO .Q1-2 X WEEK PRN 02/27/21 08/29/21 History glipizide 5 mg tablet 5 - 10 mg PO DAILY 02/27/21 08/29/21 History isosorbide mononitrate 60 mg 60 mg PO DAILY 02/27/21 08/29/21 History tablet,extended release 24 hr metoprolol succinate 50 mg See Rx Instructions .ROUTE .COMPLEX 02/27/21 08/29/21 History tablet,extended release 24 hr warfarin 5 mg tablet See Rx Instructions .ROUTE .COMPLEX 02/27/21 08/29/21 History Cranberry Caps 360 mg PO DAILY 08/29/21 08/29/21 History albuterol sulfate 90 mcg/actuation 2 puff INHALATION Q4 PRN 08/29/21 08/29/21 History aerosol inhaler cefdinir 300 mg capsule 300 mg PO Q12 08/29/21 08/29/21 History diphenhydramine 25 2 tab PO HS PRN 08/29/21 08/29/21 History mg-acetaminophen 500 mg tablet (Tylenol PM Extra Strength) hydralazine 10 mg tablet 10 mg PO BID 08/29/21 08/29/21 History hydrocortisone 2.5 % topical cream 1 applic TOPICAL BID 08/29/21 08/29/21 History montelukast 10 mg tablet 10 mg PO DAILY 08/29/21 08/29/21 History phenazopyridine 100 mg tablet 100 mg PO TID PRN 08/29/21 08/29/21 History (Pyridium) Patient History Medical History Cardiac murmur no longer since heart valve surgery 02/2019 Chronic back pain Diabetes mellitus, type 2 GERD (gastroesophageal reflux disease) Glaucoma Hyperlipidemia Hypertension Hypothyroidism Hypoxia, sleep related uses oxygen at hs 2.5 Laryngeal spasm On anticoagulant therapy on plavix daily On home oxygen therapy 2.5 LITER AT HS Osteoarthritis Restless leg syndrome Surgical History History of abdominal surgery for bowel obstruction History of aortic valve replacement 02/26/19 @ [facility]--follows with Dr. Arredondo History of appendectomy History of cardiac cath x4 with a total of 4 stents--last--12/2018 @ [facility] x1 DRUG ELUTING STENT History of colonoscopy History of esophagogastroduodenoscopy (EGD) History of heart artery stent a total of 4 stents--last--12/2018 @ [facility] x1 DRUG ELUTING STENT History of hip surgery left 2 screws placed after total hip replacement History of lumbar laminectomy for spinal cord decompression x2 History of right cataract surgery History of tonsillectomy History of tooth extraction all teeth removed History of total hysterectomy with bilateral salpingo-oophorectomy (BSO) History of total left hip replacement History of total left knee replacement (TKR) History of total right knee replacement (TKR) Status post glaucoma surgery right eye Status post trigger finger release left hand Family History Mother Diabetes Osteoporosis Heart disease Grandmother (Maternal) Diabetes Father Heart disease Other Asthma No family history of adverse response to anesthesia Social History Smoking Status: Never smoker Second Hand Exposure: Yes ( A CHILD); Hx Alcohol Use: No Hx Substance Use: No Preferred Language: P[place]in[place] Communication Ability: Effective Bisque Brusher Required: No Beliefs That Will Affect Care: None marital status: Current Living Situation: Spouse Current Living Situation Comment: Lives with Other Information That Helps Us Care for You: No Feels Safe at Home: Yes Safety Concerns: Feels Safe At This Time Assistive Devices: Walker Review of Systems Review of Systems: Review of Systems: See HPI for pertinent positives. All other 10 point review of systems are negative. Physical Exam Physical Exam: General: no acute distress and stated age Head: normocephalic, no masses, lesions, tenderness or abnormalities Eyes: conjunctiva are pink and non-injected, sclera clear Neck: supple, no adenopathy, no bruits, normal jugular venous pulse, no hepatojugular reflux Chest: normal shape and normal respiratory effort Lungs: clear to auscultation and percussion Cardiac Exam: - regular rate & rhythm, no murmurs gallops or rubs - normal S1, normal S2 Pulses: 2(+) throughout Abdomen: abdomen soft, non-tender, no abnormal masses and no hepatosplenomegaly Musculoskeletal: no gait disturbance, no joint inflammation, no deforming arthritis Extremities: no edema and no cyanosis Neuro: grossly normal exam Results & Data ([facility]) Vital Signs (Past 12 Hours) Vital Signs Temp Pulse Pulse Resp BP BP Pulse Ox 08/29/21 10:20 36.6 C 71 149/79 H 93 08/29/21 08:43 36.4 C L 68 18 148/75 H 96 08/29/21 07:00 36.4 C L 62 20 148/75 H 96 08/29/21 05:38 111 H 20 117/76 95 08/29/21 04:34 78 20 123/66 94 08/29/21 03:25 74 20 120/60 91 08/29/21 02:30 112 H 19 139/66 93 08/29/21 01:22 37.6 C H 108 H 20 142/69 H 95 Laboratory Results Laboratory Results - last 24 hr 08/29/21 08/29/21 08/29/21 01:26 01:26 01:26 WBC 7.13 RBC 3.78 L Hgb 10.5 L Hct 33.2 L MCV 87.8 MCH 27.8 MCHC 31.6 L RDW Std Deviation 53.5 H RDW Coeff of Omid 16.7 H Plt Count 207 MPV 9.3 Immature Gran % (Auto) 0.3 Neut % (Auto) 68.9 Lymph % (Auto) 20.3 [place] % (Auto) 9.7 Eos % (Auto) 0.8 Baso % (Auto) 0.0 Neut # (Auto) 4.91 Lymph # (Auto) 1.45 [place] # (Auto) 0.69 H Eos # (Auto) 0.06 Baso # (Auto) 0.00 Immature Gran # (Auto) 0.02 PT INR Sodium 138 Potassium 4.7 Chloride 107 Carbon Dioxide 25 Anion Gap 6.0 BUN 28 H Creatinine 1.24 H Est Cr Clr Drug Dosing 35.5 Est GFR ( Amer) 47.2 Est GFR (Non-Af Amer) 40.7 BUN/Creatinine Ratio 22.6 H Glucose 292 H POC Glucose Estimat Average Glucose Hemoglobin A1c Lactate Calcium 8.8 Magnesium 1.9 Total Bilirubin 0.3 AST 13 L ALT 46 Alkaline Phosphatase 53 Troponin I < 0.015 NT-Pro-B Natriuret Pep 2894 H Total Protein 6.2 L Albumin 2.9 L Globulin 3.3 Albumin/Globulin Ratio 0.9 TSH 3.050 Urine Color Urine Appearance Urine pH Ur Specific [place] Urine Protein Urine Glucose (UA) Urine Ketones Urine Blood Urine Nitrite Urine Bilirubin Urine Urobilinogen Ur Leukocyte Esterase Urine WBC (Auto) Urine RBC (Auto) U Hyaline Cast (Auto) U Epithel Cells (Auto) Urine Bacteria (Auto) SARS-CoV-2 (PCR) NEGATIVE Influenza Type A (PCR) Negative Influenza Type B (PCR) Negative RSV (RT-PCR) Negative 08/29/21 08/29/21 08/29/21 01:26 06:53 06:53 WBC RBC Hgb Hct MCV MCH MCHC RDW Std Deviation RDW Coeff of Omid Plt Count MPV Immature Gran % (Auto) Neut % (Auto) Lymph % (Auto) [place] % (Auto) Eos % (Auto) Baso % (Auto) Neut # (Auto) Lymph # (Auto) [place] # (Auto) Eos # (Auto) Baso # (Auto) Immature Gran # (Auto) PT 28.2 H INR 3.0 H Sodium Potassium Chloride Carbon Dioxide Anion Gap BUN Creatinine Est Cr Clr Drug Dosing Est GFR ( Amer) Est GFR (Non-Af Amer) BUN/Creatinine Ratio Glucose POC Glucose Estimat Average Glucose Pending Hemoglobin A1c Pending Lactate 1.0 Calcium Magnesium Total Bilirubin AST ALT Alkaline Phosphatase Troponin I NT-Pro-B Natriuret Pep Total Protein Albumin Globulin Albumin/Globulin Ratio TSH Urine Color Urine Appearance Urine pH Ur Specific [place] Urine Protein Urine Glucose (UA) Urine Ketones Urine Blood Urine Nitrite Urine Bilirubin Urine Urobilinogen Ur Leukocyte Esterase Urine WBC (Auto) Urine RBC (Auto) U Hyaline Cast (Auto) U Epithel Cells (Auto) Urine Bacteria (Auto) SARS-CoV-2 (PCR) Influenza Type A (PCR) Influenza Type B (PCR) RSV (RT-PCR) 08/29/21 08/29/21 08/29/21 06:53 11:25 Unknown WBC RBC Hgb Hct MCV MCH MCHC RDW Std Deviation RDW Coeff of Omid Plt Count MPV Immature Gran % (Auto) Neut % (Auto) Lymph % (Auto) [place] % (Auto) Eos % (Auto) Baso % (Auto) Neut # (Auto) Lymph # (Auto) [place] # (Auto) Eos # (Auto) Baso # (Auto) Immature Gran # (Auto) PT INR Sodium Potassium Chloride Carbon Dioxide Anion Gap BUN Creatinine Est Cr Clr Drug Dosing Est GFR ( Amer) Est GFR (Non-Af Amer) BUN/Creatinine Ratio Glucose POC Glucose 239 H Estimat Average Glucose Hemoglobin A1c Lactate Calcium Magnesium Total Bilirubin AST ALT Alkaline Phosphatase Troponin I < 0.015 NT-Pro-B Natriuret Pep Total Protein Albumin Globulin Albumin/Globulin Ratio TSH Urine Color Yellow Urine Appearance Clear Urine pH 5.5 Ur Specific [place] 1.007 Urine Protein Negative Urine Glucose (UA) Negative Urine Ketones Negative Urine Blood Negative Urine Nitrite Negative Urine Bilirubin Negative Urine Urobilinogen Negative Ur Leukocyte Esterase Trace H Urine WBC (Auto) 1-5 Urine RBC (Auto) 0-4 U Hyaline Cast (Auto) 1-5 U Epithel Cells (Auto) 5-10 H Urine Bacteria (Auto) Negative SARS-CoV-2 (PCR) Influenza Type A (PCR) Influenza Type B (PCR) RSV (RT-PCR) Medications Administered Current Inpatient Medications Acetaminophen (Acetaminophen 325 Mg Tab) 650 mg PO Q4H PRN PRN Reason: Pain or Fever Stop: 09/28/21 10:01 Amiodarone HCl (Amiodarone 200 Mg Tab) 100 mg PO DAILY [facility] Stop: 09/29/21 08:59 Aspirin (Aspirin 81 Mg Chew) 81 mg PO DAILY [facility] Stop: 09/28/21 10:14 Last Admin: 08/29/21 12:04 Dose: 81 mg Documented by: Atorvastatin Calcium (Atorvastatin 40 Mg Tab) 80 mg PO [facility] Stop: 09/28/21 20:59 Bimatoprost (Bimatoprost 0.01% Op Soln 2.5 Ml Btl) 1 drops OP [facility] Stop: 09/28/21 20:59 Clopidogrel Bisulfate (Clopidogrel Bisulfate 75 Mg Tab) 75 mg PO [facility] Stop: 09/28/21 10:29 Last Admin: 08/29/21 12:04 Dose: 75 mg Documented by: Cyanocobalamin (Cyanocobalamin 500 Mcg Tablet (Vitamin B-12)) 1,000 mcg PO [facility] Stop: 09/28/21 10:29 Last Admin: 08/29/21 12:07 Dose: 1,000 mcg Documented by: Dextrose (Dextrose 50% 50 Ml Syringe) 25 - 50 ml IV UD PRN; Protocol PRN Reason: Hypoglycemia Protocol Stop: 09/28/21 10:01 Docusate Sodium (Docusate Sodium 100 Mg Cap) 100 mg PO BID PRN PRN Reason: Constipation Stop: 09/28/21 10:09 Fluticasone Propionate (Fluticasone Propionate Na Spr 16 Gm Btl) 2 sprays NA DAILY [facility] Stop: 09/28/21 10:29 Last Admin: 08/29/21 12:06 Dose: 2 sprays Documented by: Gabapentin (Gabapentin 300 Mg Cap) 300 mg PO QAM [facility] Stop: 09/28/21 10:29 Last Admin: 08/29/21 12:07 Dose: 300 mg Documented by: Gabapentin (Gabapentin 600 Mg Tab) 600 mg PO [facility] Stop: 09/28/21 20:59 Glucagon (Glucagon For Inj 1 Mg Vial) 1 mg SQ UD PRN; Protocol PRN Reason: Hypoglycemia Protocol Stop: 09/28/21 10:01 Glucose (Glucose 10 Tabs/Tube) 4 - 8 tabs PO UD PRN; Protocol PRN Reason: Hypoglycemia Protocol Stop: 09/28/21 10:01 Glucose (Glucose 40% Gel 15 Gm Tube) 15 - 30 gm PO UD PRN; Protocol PRN Reason: Hypoglycemia Protocol Stop: 09/28/21 10:01 Hydralazine HCl (Hydralazine 10 Mg Tab) 10 mg PO BID [facility] Stop: 09/28/21 10:29 Last Admin: 08/29/21 12:07 Dose: 10 mg Documented by: Sodium Chloride (Nss 1000ml) 1,000 mls @ 100 mls/hr IV .Q10H ONE Stop: 08/29/21 20:01 Last Admin: 08/29/21 10:52 Dose: 100 mls/hr Documented by: Ampicillin Sodium/Sulbactam Sodium 3,000 mg/ Sodium Chloride 108 mls @ 200 mls/hr IV Q6H [facility] Stop: 09/05/21 13:59 Insulin Aspart (Insulin Aspart Per Unit) 0 units SC ACHS [facility] Stop: 09/28/21 10:01 Insulin Glargine (Insulin Glargine Solostar 100 Units/Ml 3 Ml Pen) 5 units SC DAILY [facility] Stop: 09/29/21 08:59 Ipratropium [place] (Ipratropium [place] Neb Soln 0.02% 2.5 Ml Vial) 0.5 mg INH Q4R PRN PRN Reason: Shortness Of Breath Or Wheezing Stop: 09/28/21 07:44 Isosorbide Mononitrate (Isosorbide [place] Extended Rel 60 Mg Tabcr) 60 mg PO DAILY [facility] Stop: 09/28/21 10:29 Last Admin: 08/29/21 12:05 Dose: 60 mg Documented by: Lactobacillus Acidoph/Casei/Rhamnos (Advanced Probiotic 1250 Mg Capsule) 2 cap PO QAM [facility] Stop: 09/28/21 10:29 Levalbuterol HCl (Levalbuterol 1.25mg/0.5ml Neb) 1.25 mg INH Q4R PRN PRN Reason: Shortness Of Breath Or Wheezing Stop: 09/28/21 07:44 Levothyroxine Sodium (Levothyroxine Sodium 25 Mcg Tablet) 25 mcg PO DAILYBB [facility] Stop: 09/28/21 10:29 Last Admin: 08/29/21 12:05 Dose: 25 mcg Documented by: Magnesium Oxide (Magnesium Oxide 400 Mg Tab) 400 mg PO DAILY [facility] Stop: 09/28/21 10:29 Last Admin: 08/29/21 12:06 Dose: 400 mg Documented by: Metoprolol Succinate (Metoprolol Succ 25mg Ext Rel Tab) 75 mg PO BID [facility] Stop: 09/28/21 10:29 Last Admin: 08/29/21 12:07 Dose: 75 mg Documented by: Miscellaneous (Order Awaiting Action-Rhopressa) 1 ea N/A QS [facility] Stop: 09/28/21 15:59 Miscellaneous (Carbohydrates For Hypoglycemia ) 15 - 30 gm PO UD PRN PRN Reason: Hypoglycemia Protocol Stop: 09/28/21 10:01 Miscellaneous Information (Ampicillin/Sulbactam Consult Active) 1 ea N/A UD PRN PRN Reason: Consult Stop: 09/28/21 10:28 Montelukast Sodium (Montelukast Sodium 10 Mg Tablet) 10 mg PO DAILY [facility] Stop: 09/28/21 10:29 Last Admin: 08/29/21 12:06 Dose: 10 mg Documented by: Multivitamins (Multivitamin Tab) 1 tab PO QAM [facility] Stop: 09/28/21 10:29 Last Admin: 08/29/21 12:06 Dose: 1 tab Documented by: Nitroglycerin (Nitroglycerin Sl 0.4 Mg/Tab Tab) 0.4 mg SL UD PRN PRN Reason: Chest Pain Stop: 09/28/21 10:01 Pantoprazole Sodium (Pantoprazole 40 Mg Tab) 40 mg PO DAILY [facility] Stop: 09/28/21 10:29 Last Admin: 08/29/21 12:05 Dose: 40 mg Documented by: Phenazopyridine HCl (Phenazopyridine Hcl 100 Mg Tab) 100 mg PO TID PRN PRN Reason: .UTI Stop: 09/28/21 10:01 Ropinirole HCl (Ropinirole Hcl 0.25 Mg Tablet) 0.25 mg PO HS [facility] Stop: 09/28/21 20:59 (1) Chest pain Chest pain type: unspecified Qualified Code(s): R07.9 - Chest pain, unspecified
[2021-08-29] MEDS: ADVANCED PROBIOTIC 1250 MG CAPSULE PO SCH (12:45)
[2021-08-29] MEDS: INSULIN ASPART PER UNIT SC SCH ×4 (13:35→20:52)
[2021-08-29] MEDS: AMPICILLIN/SULBACTAM SOD 3,000 MG in 0.9 % SODIUM CHLORIDE 100 ML IV SCH ×2 (14:41→19:59)
[2021-08-29] MEDS: rOPINIRole HCL 0.25 MG TABLET PO SCH (20:05)
[2021-08-29] MEDS: BIMATOPROST 0.01% OP SOLN 2.5 ML BTL OP SCH (20:05)
[2021-08-29] MEDS: ATORVASTATIN 40 MG TAB PO SCH (20:05)
[2021-08-29] MEDS: GABAPENTIN 600 MG TAB PO SCH (20:05)
[2021-08-30] MEDS: AMPICILLIN/SULBACTAM SOD 3,000 MG in 0.9 % SODIUM CHLORIDE 100 ML IV SCH ×2 (01:12→08:55)
[2021-08-30] MEDS: LEVOTHYROXINE SODIUM 25 MCG TABLET PO SCH (05:37)
[2021-08-30 07:02] LABS: Eosinophils # (auto) 0.11 K/uL (0-0.5); Eosinophils % (auto) 1.7 %; Hematocrit (blood only) 32.7 % (37-47); Hemoglobin 10.3 g/dL (12.0-16.0); Immature Granulocytes # (auto) 0.03 K/uL (0.00-0.02); Immature Granulocytes % (auto) 0.5 %; Lymphocytes % (auto) 20.5 %; Mean Corpuscular Hemoglobin 28.1 pg (25-34); Mean Corpuscular Hgb Conc 31.5 g/dL (32-36); Mean Corpuscular Volume 89.1 fL (80-100); Mean Platelet Volume 9.6 fL (7.4-10.4); Monocytes # (auto) 0.55 K/uL (0.11-0.59); Monocytes % (auto) 8.7 %; Neutrophils # (auto) 4.35 K/uL (1.4-6.5); Neutrophils % (auto) 68.6 %; Platelet Count 202 K/uL (130-400); RDW Coefficient of Variation 16.7 % (11.5-14.5); RDW Standard Deviation 54.6 fL (36.4-46.3); Red Blood Count 3.67 M/uL (4.2-5.4); White Blood Count 6.34 K/uL (4.8-10.8)
[2021-08-30 07:21] LABS: INR 2.4 (0.9-1.1); Prothrombin Time 22.3 Seconds (9.0-12.0)
--- NOTE | 2021-08-30 07:38 | Electrocardiogram Report ---
Test Reason : Blood Pressure : / mmHG Vent. Rate : 114 BPM Atrial Rate : 208 BPM P-R Int : 000 ms QRS Dur : 128 ms QT Int : 366 ms P-R-T Axes : 262 -40 057 degrees QTc Int : 504 ms Atrial flutter with variable A-V block with premature ventricular or aberrantly conducted complexes Left axis deviation Right bundle branch block Inferior infarct , age undetermined Abnormal ECG When compared with ECG of 15-DEC-2020 14:57, Atrial flutter is now present Confirmed by Lamberto Stock ([id number]) on 08/30/2021 7:37:46 AM Referred By: REFERRED SELF Confirmed By:Lamberto Stock
--- NOTE | 2021-08-30 07:40 | Electrocardiogram Report ---
Test Reason : Blood Pressure : / mmHG Vent. Rate : 075 BPM Atrial Rate : 075 BPM P-R Int : 182 ms QRS Dur : 136 ms QT Int : 432 ms P-R-T Axes : 041 -19 063 degrees QTc Int : 482 ms Normal sinus rhythm Possible Left atrial enlargement Right bundle branch block Inferior infarct (cited on or before 29-AUG-2021) Abnormal ECG When compared with ECG of 29-AUG-2021 01:19, (unconfirmed) Sinus rhythm has replaced Atrial flutter Vent. rate has decreased BY 39 BPM Confirmed by Lamberto Stock ([id number]) on 08/30/2021 7:39:31 AM Referred By: REFERRED SELF Confirmed By:Lamberto Stock
[2021-08-30] MEDS: INSULIN ASPART PER UNIT SC SCH ×4 (08:00→20:42)
[2021-08-30 08:07] LABS: Estimated Average Glucose 189 mg/dl; Hemoglobin A1C 8.2 % (4.5-5.6)
--- NOTE | 2021-08-30 08:39 | Pulmonary Consultation ---
Date of Consultation August 30, 2021 Assessment & Plan (1) Chronic cough: (2) Palpitation: (3) GERD (gastroesophageal reflux disease): Chest x-ray 08/29/2020 personally reviewed: Good inspiratory effort, bilateral costophrenic and bottlefeeding obstructing, no clear lung infiltrate appreciat ed. CT chest 02/27/2021 personally reviewed: Minimal atelectasis bilateral lower lobes likely dependent No mediastinal lymphadenopathy --Chronic cough I think etiology is most likely from postnasal drip Given this is chronic in nature I would recommend the patient to be on for generation antihistamine along with DM Patient can continue with fluticasone nasal spray as well --Bilateral crackles on the physical exam I will order CT chest to make sure there is no underlying dependent lung disease Patient amiodarone dose is on the lower side to cause pulmonary toxicity but there have been case reports of having pulmonary toxicity even with 1 dose. Plan: Chest x-ray is clear. I doubt the patient has aspiration pneumonia I will order procalcitonin. If the procalcitonin is negative can discontinue the antibiotics For questionable vocal cord issues patient can have nonurgent outpatient spirometry. I do not think there is any evidence of amiodarone induced pulmonary toxicity. Continue with amiodarone if it is necessary as per cardiology No further recommendation from pulmonary perspective. We will follow up CT chest without contrast Please note the above document was generated using voice recognition software. It may contain grammatical, syntax or spelling errors.Any formal questions or concerns about the content, text or information contained within the body of this dictation should be directly addressed to the provider for clarification. History of Present Illness Attending Physician: Lisa Ballard MD History of Present Illness 81-year-old female past medical history of diastolic heart failure, aortic stenosis s/p TAVR, coronary artery disease s/p stenting, A. fib on Coumadin presented to the hospital with complaints of productive of. She has been having runny nose also since October of last year which as per the patient is following the second dose of Covid-19. Patient has recently completed a course of antibiotic as well as steroids which is what the patient did not help with her cough. Pulmonary consulted for cough as well as possible aspiration while the patient is on amiodarone. At the time of examination patient was saturating 95 on room air. She denied any chest pain, denies any headache, She has been complaining of chronic runny nose which has been going on since October 2020. Is usually clear Denies any fever or chills. She did had an episode of aspiration of her own saliva which was very minimal Cough is mostly dry. If she brings up any phlegm is mostly clear. Denies any hemoptysis. Patient denies any personal or family history of any autoimmune disease like lupus, sarcoid, Sjogren's, rheumatoid arthritis Denies Raynaud's phenomena Social history: Non-smoker Allergies Allergy/AdvReac Type Severity Reaction Status Date / Time empagliflozin Allergy Intermediate BLOOD IN Verified 08/29/21 02:28 [From Jardiance] URINE, BLADDER INFECTION carbamazepine Allergy Mild RASH Verified 08/29/21 02:28 oxaprozin Allergy Mild RASH/HIVES Verified 08/29/21 02:28 valproic acid Allergy Mild HEAD-TOE Verified 08/29/21 02:28 RASH Home Medications Medication Instructions Recorded Confirmed Type acetaminophen 500 mg tablet 1,000 mg PO Q6H PRN 06/12/19 08/29/21 History atorvastatin 80 mg tablet 80 mg PO HS 06/12/19 08/29/21 History bimatoprost 0.01 % eye drops 1 drp OPB HS 06/12/19 08/29/21 History (Marion) clopidogrel 75 mg tablet 75 mg PO QAM 06/12/19 08/29/21 History fluticasone propionate 50 2 spray INTRANASAL DAILY 06/12/19 08/29/21 History mcg/actuation nasal spray,suspension (Flonase Allergy Relief) gabapentin 300 mg capsule See Rx Instructions .ROUTE .COMPLEX 06/12/19 08/29/21 History lactobacillus combination no.4 3 3,000 mmu cells PO QAM 06/12/19 08/29/21 History billion cell capsule (Probiotic) levothyroxine 25 mcg tablet 25 mcg PO DAILYBB 06/12/19 08/29/21 History multivitamin 1 tab PO QAM 06/12/19 08/29/21 History nitroglycerin 0.4 mg sublingual 0.4 mg SUBLINGUAL DIRECTED PRN 06/12/19 08/29/21 History tablet omeprazole 20 mg tablet,delayed 20 mg PO DAILY 06/12/19 08/29/21 History release ropinirole 0.25 mg tablet 0.25 mg PO HS 06/12/19 08/29/21 History metformin 500 mg tablet 500 mg PO BIDM 07/13/20 08/29/21 History cyanocobalamin (vitamin B-12) 1,000 mcg PO QAM 11/11/20 08/29/21 History 1,000 mcg tablet docusate sodium 100 mg tablet 100 mg PO BID PRN 11/11/20 08/29/21 History (Stool Softener) magnesium oxide 400 mg PO DAILY 11/11/20 08/29/21 History netarsudil 0.02 % eye drops 1 drp OPB HS 11/11/20 08/29/21 History (Rhopressa) amiodarone 200 mg tablet 100 mg PO DAILY 02/27/21 08/29/21 History aspirin 81 mg chewable tablet 81 mg PO DAILY 02/27/21 08/29/21 History evolocumab 140 mg/mL subcutaneous 140 mg SUBCUT .Q14 DAYS 02/27/21 08/29/21 History pen injector (Repatha SureChristianick) furosemide 20 mg tablet (Lasix) 20 mg PO .Q1-2 X WEEK PRN 02/27/21 08/29/21 History glipizide 5 mg tablet 5 - 10 mg PO DAILY 02/27/21 08/29/21 History isosorbide mononitrate 60 mg 60 mg PO DAILY 02/27/21 08/29/21 History tablet,extended release 24 hr metoprolol succinate 50 mg See Rx Instructions .ROUTE .COMPLEX 02/27/21 08/29/21 History tablet,extended release 24 hr warfarin 5 mg tablet See Rx Instructions .ROUTE .COMPLEX 02/27/21 08/29/21 History Cranberry Caps 360 mg PO DAILY 08/29/21 08/29/21 History albuterol sulfate 90 mcg/actuation 2 puff INHALATION Q4 PRN 08/29/21 08/29/21 Hi story aerosol inhaler cefdinir 300 mg capsule 300 mg PO Q12 08/29/21 08/29/21 History diphenhydramine 25 2 tab PO HS PRN 08/29/21 08/29/21 History mg-acetaminophen 500 mg tablet (Tylenol PM Extra Strength) hydralazine 10 mg tablet 10 mg PO BID 08/29/21 08/29/21 History hydrocortisone 2.5 % topical cream 1 applic TOPICAL BID 08/29/21 08/29/21 History montelukast 10 mg tablet 10 mg PO DAILY 08/29/21 08/29/21 History phenazopyridine 100 mg tablet 100 mg PO TID PRN 08/29/21 08/29/21 History (Pyridium) Patient History Medical History Cardiac murmur no longer since heart valve surgery 02/2019 Chronic back pain Diabetes mellitus, type 2 GERD (gastroesophageal reflux disease) Glaucoma Hyperlipidemia Hypertension Hypothyroidism Hypoxia, sleep related uses oxygen at hs 2.5 Laryngeal spasm On anticoagulant therapy on plavix daily On home oxygen therapy 2.5 LITER AT HS Osteoarthritis Restless leg syndrome Surgical History History of abdominal surgery for bowel obstruction History of aortic valve replacement 02/26/19 @ [facility] [place]follows with Dr. Arredondo History of appendectomy History of cardiac cath x4 with a total of 4 stents--last--12/2018 @ [facility] [place] x1 DRUG ELUTING STENT History of colonoscopy History of esophagogastroduodenoscopy (EGD) History of heart artery stent a total of 4 stents--last--12/2018 @ [facility] [place] x1 DRUG ELUTING STENT History of hip surgery left 2 screws placed after total hip replacement History of lumbar laminectomy for spinal cord decompression x2 History of right cataract surgery History of tonsillectomy History of tooth extraction all teeth removed History of total hysterectomy with bilateral salpingo-oophorectomy (BSO) History of total left hip replacement History of total left knee replacement (TKR) History of total right knee replacement (TKR) Status post glaucoma surgery right eye Status post trigger finger release left hand Family History Mother Diabetes Osteoporosis Heart disease Grandmother (Maternal) Diabetes Father Heart disease Other Asthma No family history of adverse response to anesthesia Social History Smoking Status: Never smoker Second Hand Exposure: Yes ( A CHILD); Hx Alcohol Use: No Hx Substance Use: No Preferred Language: Comoran Communication Ability: Effective Scallop Cutter Required: No Beliefs That Will Affect Care: None marital status: Current Living Situation: Spouse Current Living Situation Comment: Lives with Other Information That Helps Us Care for You: No Feels Safe at Home: Yes Safety Concerns: Feels Safe At This Time Assistive Devices: Walker Review of Systems Review of Systems: All systems reviewed & are unremarkable except as noted in HPI & below Physical Exam Physical Exam: Constitutional: No acute distress HEENT: EOMI, PERRLA Respiratory system: Decreased air entry bilaterally, no wheeze, rhonchi, positive crackles bilaterally CVS: S1-S2 positive, no murmurs or gallops Abdomen: Soft, nontender, nondistended, positive bowel sounds x4 Extremities: +2 pulses bilaterally radialis/ dorsalis pedis, no cyanosis, +1 pitting edema bilateral lower extremity Neuro: Awake alert oriented x3 Psych: Normal mood and affect G/U: No Joyner Skin: no rashes, warm and dry Lymphatic: no cervical or axillary lymphadenopathy Results & Data Results & Data ([facility]) Vital Signs (Past 12 Hours) Vital Signs Temp Pulse Pulse Resp BP Pulse Ox 08/30/21 07:58 60 08/30/21 07:35 36.4 C L 58 L 20 181/83 H 98 08/30/21 03:37 36.6 C 63 17 137/77 95 08/30/21 00:07 36.6 C 61 16 123/74 93 08/29/21 23:12 67 08/30/21 06:38 PG Care Time/CCT Total # of Minutes Spent Total Time Spent with Patient: Total time spent is greater than 50% in coordination of care (as documented) at patient's floor/unit and/or counseling patient: Coding Level of Care Code 41403 Initial Inpt Care Lvl 3 Diagnoses Chronic cough R05.3 Palpitation R00.2 GERD (gastroesophageal reflux disease) K21.9
[2021-08-30] MEDS: METOPROLOL SUCC 25MG EXT REL TAB PO SCH ×2 (08:40→19:53)
[2021-08-30] MEDS: ADVANCED PROBIOTIC 1250 MG CAPSULE PO SCH (08:41)
[2021-08-30] MEDS: MAGNESIUM OXIDE 400 MG TAB PO SCH (08:41)
[2021-08-30] MEDS: CYANOCOBALAMIN 500 MCG TABLET (VITAMIN B-12) PO SCH (08:41)
[2021-08-30] MEDS: PANTOprazole 40 MG TAB PO SCH (08:41)
[2021-08-30] MEDS: MULTIVITAMIN TAB PO SCH (08:41)
[2021-08-30] MEDS: ASPIRIN 81 MG CHEW PO SCH (08:41)
[2021-08-30] MEDS: CLOPIDOGREL BISULFATE 75 MG TAB PO SCH (08:41)
[2021-08-30] MEDS: hydrALAZINE 10 MG TAB PO SCH ×2 (08:41→19:54)
[2021-08-30] MEDS: GABAPENTIN 300 MG CAP PO SCH (08:41)
[2021-08-30] MEDS: MONTELUKAST SODIUM 10 MG TABLET PO SCH (08:42)
[2021-08-30] MEDS: ISOSORBIDE MONO EXTENDED REL 60 MG TABCR PO SCH (08:42)
[2021-08-30] MEDS: INSULIN GLARGINE SOLOSTAR 100 UNITS/ML 3 ML PEN SC SCH (08:43)
[2021-08-30] MEDS: FLUTICASONE PROPIONATE NA SPR 16 GM BTL SCH (08:48)
[2021-08-30] MEDS ORDERED: AMIODARONE 200 MG TAB PO SCH (09:00)
[2021-08-30 09:06] LABS: BUN Creatinine Ratio 24.6 (10-20); Calcium 8.7 mg/dl (8.5-10.1); Creatinine Clr Calc Pharmacy 46.7 ml/min; Est GFR (African American) 65.9 ml/min; Est GFR (Non-African American) 56.9 ml/min; Potassium 4.6 mmol/L (3.5-5.1)
--- NOTE | 2021-08-30 13:28 | Cardiology Progress Note ---
Date of Service August 30, 2021 Assessment & Plan (1) Chest pain: (2) Atrial fibrillation with RVR: (3) Chronic anticoagulation: (4) ASCVD (arteriosclerotic cardiovascular disease): (5) COPD (chronic obstructive pulmonary disease): (6) S/P TAVR (transcatheter aortic valve replacement): (7) CAD (coronary artery disease): Plan: Pulmonary consult is appreciated. The patient's cough has actually improved, not sure why. She was started on antibiotics at admission but her pro calcitonin is negative. I spoke with the EP service as well as Dr. Arredondo her primary anthropology lecturer. She has been difficult to manage due to her angina which flares every time that she has an episode of atrial fibrillation. She is not tolerating her amiodarone and actually this medication dose was decreased to 100 mg daily. I am still concerned that she may have some amiodarone toxicity. Consideration should be given for His bundle ablation and a pacemaker. The EP service will talk to her about this option. I have held her amiodarone. I have also held her anticoagulation in anticipation of a procedure. Admission and Anticipated Discharge Date Admission Date: August 29, 2021 Subjective The patient cough has improved. Review of Systems Review of Systems: Review of Systems: See HPI for pertinent positives. All other 10 point review of systems are negative. Physical Exam Physical Exam: General: no acute distress and stated age Head: normocephalic, no masses, lesions, tenderness or abnormalities Eyes: conjunctiva are pink and non-injected, sclera clear Neck: supple, no adenopathy, no bruits, normal jugular venous pulse, no hepatojugular reflux Chest: normal shape and normal respiratory effort Lungs: clear to auscultation and percussion Cardiac Exam: - regular rate & rhythm, no murmurs gallops or rubs - normal S1, normal S2 Pulses: 2(+) throughout Abdomen: abdomen soft, non-tender, no abnormal masses and no hepatosplenomegaly Musculoskeletal: no gait disturbance, no joint inflammation, no deforming arthritis Extremities: no edema and no cyanosis Neuro: grossly normal exam Results & Data ([facility]) Vital Signs (Past 12 Hours) Vital Signs Temp Pulse Pulse Resp BP Pulse Ox 08/30/21 07:58 60 08/30/21 07:35 36.4 C L 58 L 20 181/83 H 98 08/30/21 03:37 36.6 C 63 17 137/77 95 Laboratory Results Laboratory Results - last 24 hr 08/29/21 08/29/21 08/29/21 06:53 16:25 20:31 WBC RBC Hgb Hct MCV MCH MCHC RDW Std Deviation RDW Coeff of Omid Plt Count MPV Immature Gran % (Auto) Neut % (Auto) Lymph % (Auto) [place] % (Auto) Eos % (Auto) Baso % (Auto) Neut # (Auto) Lymph # (Auto) [place] # (Auto) Eos # (Auto) Baso # (Auto) Immature Gran # (Auto) PT INR Sodium Potassium Chloride Carbon Dioxide Anion Gap BUN Creatinine Est Cr Clr Drug Dosing Est GFR ( Amer) Est GFR (Non-Af Amer) BUN/Creatinine Ratio Glucose POC Glucose 138 H 169 H Estimat Average Glucose 189 Hemoglobin A1c 8.2 H Calcium Procalcitonin 08/30/21 08/30/21 08/30/21 06:38 06:38 06:38 WBC 6.34 RBC 3.67 L Hgb 10.3 L Hct 32.7 L MCV 89.1 MCH 28.1 MCHC 31.5 L RDW Std Deviation 54.6 H RDW Coeff of Omid 16.7 H Plt Count 202 MPV 9.6 Immature Gran % (Auto) 0.5 Neut % (Auto) 68.6 Lymph % (Auto) 20.5 [place] % (Auto) 8.7 Eos % (Auto) 1.7 Baso % (Auto) 0.0 Neut # (Auto) 4.35 Lymph # (Auto) 1.30 [place] # (Auto) 0.55 Eos # (Auto) 0.11 Baso # (Auto) 0.00 Immature Gran # (Auto) 0.03 H PT 22.3 H INR 2.4 H Sodium 138 Potassium 4.6 Chloride 105 Carbon Dioxide 26 Anion Gap 7.0 BUN 23 H Creatinine 0.94 D Est Cr Clr Drug Dosing 46.7 Est GFR ( Amer) 65.9 Est GFR (Non-Af Amer) 56.9 BUN/Creatinine Ratio 24.6 H Glucose 184 H POC Glucose Estimat Average Glucose Hemoglobin A1c Calcium 8.7 Procalcitonin 08/30/21 08/30/21 08/30/21 07:19 08:49 11:03 WBC RBC Hgb Hct MCV MCH MCHC RDW Std Deviation RDW Coeff of Omid Plt Count MPV Immature Gran % (Auto) Neut % (Auto) Lymph % (Auto) [place] % (Auto) Eos % (Auto) Baso % (Auto) Neut # (Auto) Lymph # (Auto) [place] # (Auto) Eos # (Auto) Baso # (Auto) Immature Gran # (Auto) PT INR Sodium Potassium Chloride Carbon Dioxide Anion Gap BUN Creatinine Est Cr Clr Drug Dosing Est GFR ( Amer) Est GFR (Non-Af Amer) BUN/Creatinine Ratio Glucose POC Glucose 157 H 173 H Estimat Average Glucose Hemoglobin A1c Calcium Procalcitonin < 0.05 Medications Administered Current Inpatient Medications Acetaminophen (Acetaminophen 325 Mg Tab) 650 mg PO Q4H PRN PRN Reason: Pain or Fever Stop: 09/28/21 10:01 Amiodarone HCl (Amiodarone 200 Mg Tab) 100 mg PO DAILY [facility] Stop: 09/29/21 08:59 Last Admin: 08/30/21 08:41 Dose: 100 mg Documented by: Aspirin (Aspirin 81 Mg Chew) 81 mg PO DAILY [facility] Stop: 09/28/21 10:14 Last Admin: 08/30/21 08:41 Dose: 81 mg Documented by: Atorvastatin Calcium (Atorvastatin 40 Mg Tab) 80 mg PO HS [facility] Stop: 09/28/21 20:59 Last Admin: 08/29/21 20:05 Dose: 80 mg Documented by: Bimatoprost (Bimatoprost 0.01% Op Soln 2.5 Ml Btl) 1 drops OP HS [facility] Stop: 09/28/21 20:59 Last Admin: 08/29/21 20:05 Dose: 1 drops Documented by: Clopidogrel Bisulfate (Clopidogrel Bisulfate 75 Mg Tab) 75 mg PO QAM [facility] Stop: 09/28/21 10:29 Last Admin: 08/30/21 08:41 Dose: 75 mg Documented by: Cyanocobalamin (Cyanocobalamin 500 Mcg Tablet (Vitamin B-12)) 1,000 mcg PO QAM [facility] Stop: 09/28/21 10:29 Last Admin: 08/30/21 08:41 Dose: 1,000 mcg Documented by: Dextrose (Dextrose 50% 50 Ml Syringe) 25 - 50 ml IV UD PRN; Protocol PRN Reason: Hypoglycemia Protocol Stop: 09/28/21 10:01 Docusate Sodium (Docusate Sodium 100 Mg Cap) 100 mg PO BID PRN PRN Reason: Constipation Stop: 09/28/21 10:09 Fluticasone Propionate (Fluticasone Propionate Na Spr 16 Gm Btl) 2 sprays NA DAILY PRIMO Stop: 09/28/21 10:29 Last Admin: 08/30/21 08:48 Dose: 2 sprays Documented by: Gabapentin (Gabapentin 300 Mg Cap) 300 mg PO QAM PRIMO Stop: 09/28/21 10:29 Last Admin: 08/30/21 08:41 Dose: 300 mg Documented by: Gabapentin (Gabapentin 600 Mg Tab) 600 mg PO HS PRIMO Stop: 09/28/21 20:59 Last Admin: 08/29/21 20:05 Dose: 600 mg Documented by: Glucagon (Glucagon For Inj 1 Mg Vial) 1 mg SQ UD PRN; Protocol PRN Reason: Hypoglycemia Protocol Stop: 09/28/21 10:01 Glucose (Glucose 10 Tabs/Tube) 4 - 8 tabs PO UD PRN; Protocol PRN Reason: Hypoglycemia Protocol Stop: 09/28/21 10:01 Glucose (Glucose 40% Gel 15 Gm Tube) 15 - 30 gm PO UD PRN; Protocol PRN Reason: Hypoglycemia Protocol Stop: 09/28/21 10:01 Hydralazine HCl (Hydralazine 10 Mg Tab) 10 mg PO BID PRIMO Stop: 09/28/21 10:29 Last Admin: 08/30/21 08:41 Dose: 10 mg Documented by: Ampicillin Sodium/Sulbactam Sodium 3,000 mg/ Sodium Chloride 108 mls @ 200 mls/hr IV Q6H PRIMO Stop: 09/05/21 13:59 Last Infusion: 08/30/21 09:30 Dose: Infused Documented by: Insulin Aspart (Insulin Aspart Per Unit) 0 units SC ACHS PRIMO Stop: 09/28/21 10:01 Last Admin: 08/30/21 11:49 Dose: 6 units Documented by: Insulin Glargine (Insulin Glargine Solostar 100 Units/Ml 3 Ml Pen) 5 units SC DAILY PRIMO Stop: 09/29/21 08:59 Last Admin: 08/30/21 08:43 Dose: 5 units Documented by: Ipratropium [place] (Ipratropium [place] Neb Soln 0.02% 2.5 Ml Vial) 0.5 mg INH Q4R PRN PRN Reason: Shortness Of Breath Or Wheezing Stop: 09/28/21 07:44 Isosorbide Mononitrate (Isosorbide [place] Extended Rel 60 Mg Tabcr) 60 mg PO DAILY PRIMO Stop: 09/28/21 10:29 Last Admin: 08/30/21 08:42 Dose: 60 mg Documented by: Lactobacillus Acidoph/Casei/Rhamnos (Advanced Probiotic 1250 Mg Capsule) 2 cap PO QAM [facility] Stop: 09/28/21 10:29 Last Admin: 08/30/21 08:41 Dose: 2 cap Documented by: Levalbuterol HCl (Levalbuterol 1.25mg/0.5ml Neb) 1.25 mg INH Q4R PRN PRN Reason: Shortness Of Breath Or Wheezing Stop: 09/28/21 07:44 Levothyroxine Sodium (Levothyroxine Sodium 25 Mcg Tablet) 25 mcg PO DAILYBB [facility] Stop: 09/28/21 10:29 Last Admin: 08/30/21 05:37 Dose: 25 mcg Documented by: Magnesium Oxide (Magnesium Oxide 400 Mg Tab) 400 mg PO DAILY [facility] Stop: 09/28/21 10:29 Last Admin: 08/30/21 08:41 Dose: 400 mg Documented by: Metoprolol Succinate (Metoprolol Succ 25mg Ext Rel Tab) 75 mg PO BID [facility] Stop: 09/28/21 10:29 Last Admin: 08/30/21 08:40 Dose: 75 mg Documented by: Miscellaneous (Order Awaiting Action-Rhopressa) 1 ea N/A QS [facility] Stop: 09/28/21 15:59 Last Admin: 08/30/21 08:40 Dose: Not Given Documented by: Miscellaneous (Carbohydrates For Hypoglycemia ) 15 - 30 gm PO UD PRN PRN Reason: Hypoglycemia Protocol Stop: 09/28/21 10:01 Miscellaneous Information (Ampicillin/Sulbactam Consult Active) 1 ea N/A UD PRN PRN Reason: Consult Stop: 09/28/21 10:28 Montelukast Sodium (Montelukast Sodium 10 Mg Tablet) 10 mg PO DAILY [facility] Stop: 09/28/21 10:29 Last Admin: 08/30/21 08:42 Dose: 10 mg Documented by: Multivitamins (Multivitamin Tab) 1 tab PO QAM [facility] Stop: 09/28/21 10:29 Last Admin: 08/30/21 08:41 Dose: 1 tab Documented by: Nitroglycerin (Nitroglycerin Sl 0.4 Mg/Tab Tab) 0.4 mg SL UD PRN PRN Reason: Chest Pain Stop: 09/28/21 10:01 Pantoprazole Sodium (Pantoprazole 40 Mg Tab) 40 mg PO DAILY PRIMO Stop: 09/28/21 10:29 Last Admin: 08/30/21 08:41 Dose: 40 mg Documented by: Phenazopyridine HCl (Phenazopyridine Hcl 100 Mg Tab) 100 mg PO TID PRN PRN Reason: .UTI Stop: 09/28/21 10:01 Ropinirole HCl (Ropinirole Hcl 0.25 Mg Tablet) 0.25 mg PO HS [facility] Stop: 09/28/21 20:59 Last Admin: 08/29/21 20:05 Dose: 0.25 mg Documented by: (1) Chest pain Chest pain type: unspecified Qualified Code(s): R07.9 - Chest pain, unspecified
--- NOTE | 2021-08-30 15:27 | Hospitalist Progress Note ---
Date of Service August 30, 2021 Assessment & Plan (1) Chest pain: (2) Palpitation: (3) Aspiration pneumonia: (4) Atrial fibrillation with RVR: Plan: 81 yo F w/ PMH of HFpEF (2020 TTE EF 50-54%), s/p TAVR, paravalvular aortic prosthesis regurgitation, CAD s/p stents, PVD s/p Sx, PAF on coumadin, HTN, HLD, Pul HTN, COPD, asthma, RLD, DM2, hypothyroidism, chronic anemia [baseline hemoglobin 10] and history of laryngospasm per records presented 1/2 to our ED with complaint of palpitation associated with substernal discomfort the night [employer]. Of note, patient was admitted September 2017 for pneumonia, likely aspiration pneumonitis and CT, no overt signs and a speech eval as per documentation. This time, patient went to PCP due to cough productive of yellowish sputum after choking on her saliva 5 days [employer] and was prescribed cefdini r/prednisone/albuterol inhaler. #. Recurrent Afib w/ RVR After few days of taking recently prescribed medication [as above], patient noted palpitation with substernal discomfort the night [employer]. Patient reports cough not improving much, but reports feeling better on the morning after arrival. Patient reports stopping albuterol and prednisone medication following her daug hter's advice [employer]. Pt has h/o angina every time she has an episode of a fib. Admitting troponin x3 negative Admitting EKG a flutter with variable AV block, rate of 114. ST depression in lead II, ?Elevation in V1 Follow-up EKG: NSR, 75 bpm, old inferior infarct. Admitting CXR: Cardiomegaly with no acute cardiopulmonary abnormality. Likely triggered by aspiration pneumonitis. INR therapeutic at admission, Coumadin on hold currently in anticipation of any EP procedure. Cardiology on board: Plan to coordinate with EP and consideration for His bundle ablation and pacemaker. Held amiodarone d/t concerns of toxicity. Hold anticoagulation in anticipation for any procedure. NPO midnight. Discussed the case with cardiology. #. Likely aspiration pneumonitis History of laryngospasm, patient reports choking on saliva/food in the recent past History of concern for aspiration pneumonitis in her previous confinement for pneumonia. Patient reporting cough with yellow sputum not getting better after the day of arrival. Patient feels better currently. Patient posted against [place] no history of Covid. Started on Unasyn 08/29/2021, speech eval --> appreciate recommendations Pulm evaluated the patient: Since the procalcitonin was negative, antibiotic discontinued. For questionable vocal cord issues---> recommends nonurgent outpatient spirometry. Continue to monitor off antibiotics. #. Chest pain Chest pain associated with palpitation, radiating to jaw was the reason for presentation EKG as above Troponin trends negative. Cardiology on board, appreciate recommendation. #. Other chronic medical conditions: CAD, CHF, PVD status post surgery, HTN, HLD, DM2 CAD status post stent, 2020 TTE with EF of 50 to 54%, patient euvolemic to dry at presentation. Resume home meds as able, hold oral hypoglycemics, on sliding scale insulin. A1c 6.02 May 2021 Coumadin held for anticipation of procedure, SCDs. Full code N.p.o. midnight. Admission and Anticipated Discharge Date Admission Date: August 29, 2021 Subjective Patient was working with the PT in the hallway, came to the room, examined at the bedside, patient did well on room air with physical therapy. NAD, no new acute events overnight. Patient reports improving cough, with yellow sputum. Patient reports sleeping well last night. Patient denies fever/chills/chest pain/palpitations/belly pain/other review of symptoms. Physical Exam Physical Exam: GENERAL: Alert and oriented x3. NAD, on RA. HEENT: No pallor, no icterus. Pupils equal, round and reactive to light. Oral mucosa moist. NECK: No JVD, no neck masses. HEART: S1 and S2 heard. regular rate and rhythm. No murmur, no gallop. RESPIRATORY SYSTEM: Normal AP diameter. No accessory muscle use. No wheezing, b/b crackles. ABDOMEN: Soft, bowel sounds present, nontender, no distention. CENTRAL NERVOUS SYSTEM: No facial droop. Speech is clear. Obeys simple commands. Moves extremities. EXTREMITIES: Trace BLE edema, no erythema seen. Results & Data Results & Data ([facility]) Vital Signs (Past 12 Hours) Vital Signs Temp Pulse Pulse Resp BP Pulse Ox 08/30/21 07:58 60 08/30/21 07:35 36.4 C L 58 L 20 181/83 H 98 08/30/21 03:37 36.6 C 63 17 137/77 95 (1) Chest pain Chest pain type: unspecified Qualified Code(s): R07.9 - Chest pain, unspecified
--- NOTE | 2021-08-30 18:07 | CT Scan Report ---
CT chest diagnostic wo con CT DOSE: 251.98 mGy.cm HISTORY: Atypical chest pain. r/o PNA TECHNIQUE: Multiaxial CT images of the chest were performed without contrast. A dose lowering techni que was utilized adhering to the principles of ALARA. COMPARISON: Chest CT 02/27/2021. FINDINGS: Multiple old, healed right-sided rib fractures. No acute fractures identified within the ch est. Limited views the upper abdomen demonstrate a normal liver, spleen, and adrenal glands. Normal e sophagus. Mild calcified plaque within the normal caliber thoracic aorta. An aortic valve prosthesis is noted. Dense coronary artery calcifications are present. No mediastinal or hilar lymphadenopathy. Dense mitral anus calcifications. The heart is mildly enlarged. No pleural or pericardial effusions. No pneumothorax. The central airways are patent. A stable 2 mm nodule within the left lung apex on im age 45. This is of doubtful clinical significance given the patient's age. A few small bibasilar line ar densities consistent with subsegmental atelectasis are scarring. There is new small focal peripher al density within the base of the right lower lobe in image 191. This measures 1.7 cm and is adjacent to an old, healed rib fracture. Therefore, this could represent an area of scarring rather than a sm all focus of inflammatory/infectious change. However, [address] follow-up recommended to ensur e stability/resolution. IMPRESSION: 1. There is new small focal peripheral density within the base of the right lower lobe which measures 1.7 cm and is adjacent to an old, healed rib fracture. Therefore, this could represent an area of sc arring rather than a small focus of inflammatory/infectious change. However, [address] follow- up recommended to ensure stability/resolution. 2. Old, healed right-sided rib fractures. Interval resolution of the right-sided hemothorax. 3. Mild cardiomegaly, unchanged. 4. A stable 2 mm nodule within the left lung apex ACT 112: Positive. There are findings on this exam that require communication between the performing entity and the patient following Patient Test Result Information Act ([place] Act 112) guidelines. Electronically signed by: Axel Patel M.D. 08/30/2021 6:05 PM
[2021-08-30] MEDS: ATORVASTATIN 40 MG TAB PO SCH (19:53)
[2021-08-30] MEDS: BIMATOPROST 0.01% OP SOLN 2.5 ML BTL OP SCH (19:54)
[2021-08-30] MEDS: GABAPENTIN 600 MG TAB PO SCH (19:54)
[2021-08-30] MEDS: rOPINIRole HCL 0.25 MG TABLET PO SCH (19:54)
[2021-08-31] MEDS: BENZONATATE 100 MG CAPSULE PO PRN (02:43)
[2021-08-31] MEDS: LEVOTHYROXINE SODIUM 25 MCG TABLET PO SCH (05:08)
[2021-08-31 07:21] LABS: INR 1.5 (0.9-1.1); Prothrombin Time 14.9 Seconds (9.0-12.0)
[2021-08-31 07:28] LABS: BUN Creatinine Ratio 25.4 (10-20); Calcium 8.7 mg/dl (8.5-10.1); Creatinine Clr Calc Pharmacy 44.7 ml/min; Est GFR (African American) 62.7 ml/min; Est GFR (Non-African American) 54.1 ml/min
[2021-08-31] MEDS: MAGNESIUM OXIDE 400 MG TAB PO SCH (08:26)
[2021-08-31] MEDS: CLOPIDOGREL BISULFATE 75 MG TAB PO SCH (08:26)
[2021-08-31] MEDS: ADVANCED PROBIOTIC 1250 MG CAPSULE PO SCH (08:26)
[2021-08-31] MEDS: METOPROLOL SUCC 25MG EXT REL TAB PO SCH ×2 (08:26→20:12)
[2021-08-31] MEDS: MONTELUKAST SODIUM 10 MG TABLET PO SCH (08:26)
[2021-08-31] MEDS: ISOSORBIDE MONO EXTENDED REL 60 MG TABCR PO SCH (08:26)
[2021-08-31] MEDS: hydrALAZINE 10 MG TAB PO SCH ×2 (08:27→20:11)
[2021-08-31] MEDS: MULTIVITAMIN TAB PO SCH (08:27)
[2021-08-31] MEDS: ASPIRIN 81 MG CHEW PO SCH (08:27)
[2021-08-31] MEDS: CYANOCOBALAMIN 500 MCG TABLET (VITAMIN B-12) PO SCH (08:27)
[2021-08-31] MEDS: GABAPENTIN 300 MG CAP PO SCH (08:27)
[2021-08-31] MEDS: PANTOprazole 40 MG TAB PO SCH (08:27)
[2021-08-31] MEDS: FLUTICASONE PROPIONATE NA SPR 16 GM BTL SCH (08:27)
[2021-08-31] MEDS: INSULIN GLARGINE SOLOSTAR 100 UNITS/ML 3 ML PEN SC SCH (08:28)
[2021-08-31] MEDS: INSULIN ASPART PER UNIT SC SCH ×4 (08:34→20:21)
--- NOTE | 2021-08-31 08:51 | Pulmonology Progress Note ---
Date of Service August 31, 2021 Assessment & Plan (1) Chronic cough: (2) Palpitation: (3) GERD (gastroesophageal reflux disease): (4) Pulmonary nodule: Plan: Chest x-ray 08/29/2020 personally reviewed: Good inspiratory effort, bilateral costophrenic and bottlefeeding obstructing, no clear lung infiltrate appreciated. CT chest 08/30/2021 personally reviewed: Right lower lobe peripheral 1.7 cm nodularity No evidence of reticular markings Insignificant mediastinal lymphadenopathy --Chronic cough I think etiology is most likely from postnasal drip She is not on ERNST inhibitor Given this is chronic in nature I would recommend the patient to be on for generation antihistamine along with DM Patient can continue with fluticasone nasal spray as well --Bilateral crackles on the physical exam No interstitial thickening on the CT chest 08/30/20 Patient amiodarone dose is on the lower side to cause pulmonary toxicity but there have been case reports of having pulmonary toxicity even with 1 dose. --Pulmonary nodule Right lower lobe 1.7 cm This is very close to the rib fracture with the patient had back in February Would recommend to have a repeat CAT scan done in 6 months Plan: Repeat CT chest in 6 months Continue with symptomatic treatment for cough Continue with Flonase would recommend first generation antihistamine nightly No further recommendation from pulmonary perspective. We will sign off. Please call directly with any questions Please note the above document was generated using voice recognition software. It may contain grammatical, syntax or spelling errors.Any formal questions or concerns about the content, text or information contained within the body of this dictation should be directly addressed to the provider for clarification. Admission and Anticipated Discharge Date Admission Date: August 29, 2021 Subjective Patient seen and examined at bedside. No acute distress, no dressings overnight. Patient said the cough is improved. Denies any chest pain No hemoptysis No headache, no blurry vision Fair appetite. Review of Systems Review of Systems: All systems reviewed & are unremarkable except as noted in Subjective Physical Exam Physical Exam: Constitutional: No acute distress HEENT: EOMI, PERRLA Respiratory system: Decreased air entry bilaterally, no wheeze, rhonchi, positive crackles minimal bilateral lower lobes CVS: S1-S2 positive, no murmurs or gallops Abdomen: Soft, nontender, nondistended, positive bowel sounds x4 Extremities: +2 pulses bilaterally radialis/ dorsalis pedis, no cyanosis, +1 pit ting edema bilateral lower extremity Neuro: Awake alert oriented x3 Psych: Normal mood and affect G/U: No Joyner Skin: no rashes, warm and dry Lymphatic: no cervical or axillary lymphadenopathy Results & Data Results & [facility] ([facility]) Vital Signs (Past 12 Hours) Vital Signs Temp Pulse Pulse Resp BP Pulse Ox 08/31/21 07:32 36.4 C L 60 17 172/81 H 96 08/31/21 03:09 36.5 C 58 L 18 181/75 H 100 08/30/21 23:57 73 08/30/21 23:07 36.7 C 62 18 178/90 H 96 08/30/21 06:38 08/31/21 06:44 PG Care Time/CCT Total # of Minutes Spent Total Time Spent with Patient: Total time spent is greater than 50% in coordination of care (as documented) at patient's floor/unit and/or counseling patient: Coding Level of Care Code 40633 Subseq Hosp Care Lvl 2 Diagnoses Chronic cough R05.3 Palpitation R00.2 GERD (gastroesophageal reflux disease) K21.9 Pulmonary nodule R91.1
[2021-08-31] MEDS ORDERED: Heparin IV Adult Wt-Based Standard *NO* Bolus Protocol IV SCH (09:37)
--- NOTE | 2021-08-31 09:42 | Cardiology Progress Note ---
Date of Service August 31, 2021 Assessment & Plan (1) Chest pain: (2) Atrial fibrillation with RVR: (3) Chronic anticoagulation: (4) ASCVD (arteriosclerotic cardiovascular disease): (5) COPD (chronic obstructive pulmonary disease): (6) S/P TAVR (transcatheter aortic valve replacement): (7) CAD (coronary artery disease): Plan: The patient is maintaining sinus rhythm. She is overall feeling better. I discussed the ablation and pacemaker insertion with her. She is willing to proceed. Her INR today is 1.5. I will start her on IV heparin today which can be stopped prior to her procedure. Continue to hold amiodarone. Admission and Anticipated Discharge Date Admission Date: August 29, 2021 Subjective The patient is sitting in a chair comfortably eating her breakfast. She states her cough has markedly improved since she was admitted and she is feeling far better. Review of Systems Review of Systems: Review of Systems: See HPI for pertinent positives. All other 10 point review of systems are negative. Physical Exam Physical Exam: General: no acute distress and stated age Head: normocephalic, no masses, lesions, tenderness or abnormalities Eyes: conjunctiva are pink and non-injected, sclera clear Neck: supple, no adenopathy, no bruits, normal jugular venous pulse, no hepatojugular reflux Chest: normal shape and normal respiratory effort Lungs: clear to auscultation and percussion Cardiac Exam: - regular rate & rhythm, no murmurs gallops or rubs - normal S1, normal S2 Pulses: 2(+) throughout Abdomen: abdomen soft, non-tender, no abnormal masses and no hepatosplenomegaly Musculoskeletal: no gait disturbance, no joint inflammation, no deforming arthritis Extremities: no edema and no cyanosis Neuro: grossly normal exam Results & Data ([facility]) Vital Signs (Past 12 Hours) Vital Signs Temp Pulse Pulse Resp BP Pulse Ox 08/31/21 08:10 59 L 08/31/21 07:32 36.4 C L 60 17 172/81 H 96 08/31/21 03:09 36.5 C 58 L 18 181/75 H 100 08/30/21 23:57 73 08/30/21 23:07 36.7 C 62 18 178/90 H 96 Laboratory Results Laboratory Results - last 24 hr 08/30/21 08/30/21 08/30/21 08:49 11:03 16:18 PT INR Sodium Potassium Chloride Carbon Dioxide Anion Gap BUN Creatinine Est Cr Clr Drug Dosing Est GFR ( Amer) Est GFR (Non-Af Amer) BUN/Creatinine Ratio Glucose POC Glucose 173 H 209 H Calcium Procalcitonin < 0.05 08/30/21 08/31/21 08/31/21 20:30 06:44 06:44 PT 14.9 H INR 1.5 H Sodium 139 Potassium 5.0 Chloride 105 Carbon Dioxide 34 H Anion Gap 0 L BUN 25 H Creatinine 0.98 Est Cr Clr Drug Dosing 44.7 Est GFR ( Amer) 62.7 Est GFR (Non-Af Amer) 54.1 BUN/Creatinine Ratio 25.4 H Glucose 206 H POC Glucose 224 H Calcium 8.7 Procalcitonin 08/31/21 07:00 PT INR Sodium Potassium Chloride Carbon Dioxide Anion Gap BUN Creatinine Est Cr Clr Drug Dosing Est GFR ( Amer) Est GFR (Non-Af Amer) BUN/Creatinine Ratio Glucose POC Glucose 197 H Calcium Procalcitonin Medications Administered Current Inpatient Medications Acetaminophen (Acetaminophen 325 Mg Tab) 650 mg PO Q4H PRN PRN Reason: Pain or Fever Stop: 09/28/21 10:01 Amiodarone HCl (Amiodarone 200 Mg Tab) 100 mg PO DAILY [facility] Stop: 09/29/21 08:59 Last Admin: 08/30/21 08:41 Dose: 100 mg Documented by: Aspirin (Aspirin 81 Mg Chew) 81 mg PO DAILY [facility] Stop: 09/28/21 10:14 Last Admin: 08/31/21 08:27 Dose: 81 mg Documented by: Atorvastatin Calcium (Atorvastatin 40 Mg Tab) 80 mg PO HS [facility] Stop: 09/28/21 20:59 Last Admin: 08/30/21 19:53 Dose: 80 mg Documented by: Benzonatate (Benzonatate 100 Mg Capsule) 100 mg PO TID PRN PRN Reason: Cough Stop: 09/30/21 00:11 Last Admin: 08/31/21 02:43 Dose: 100 mg Documented by: Bimatoprost (Bimatoprost 0.01% Op Soln 2.5 Ml Btl) 1 drops OP HS [facility] Stop: 09/28/21 20:59 Last Admin: 08/30/21 19:54 Dose: 1 drops Documented by: Clopidogrel Bisulfate (Clopidogrel Bisulfate 75 Mg Tab) 75 mg PO QAM [facility] Stop: 09/28/21 10:29 Last Admin: 08/31/21 08:26 Dose: 75 mg Documented by: Cyanocobalamin (Cyanocobalamin 500 Mcg Tablet (Vitamin B-12)) 1,000 mcg PO QAM [facility] Stop: 09/28/21 10:29 Last Admin: 08/31/21 08:27 Dose: 1,000 mcg Documented by: Dextrose (Dextrose 50% 50 Ml Syringe) 25 - 50 ml IV UD PRN; Protocol PRN Reason: Hypoglycemia Protocol Stop: 09/28/21 10:01 Docusate Sodium (Docusate Sodium 100 Mg Cap) 100 mg PO BID PRN PRN Reason: Constipation Stop: 09/28/21 10:09 Fluticasone Propionate (Fluticasone Propionate Na Spr 16 Gm Btl) 2 sprays NA DAILY [facility] Stop: 09/28/21 10:29 Last Admin: 08/31/21 08:27 Dose: 2 sprays Documented by: Gabapentin (Gabapentin 300 Mg Cap) [facility] Stop: 09/28/21 10:29 Last Admin: 08/31/21 08:27 Dose: 300 mg Documented by: Gabapentin (Gabapentin 600 Mg Tab) 600 mg PO HS [facility] Stop: 09/28/21 20:59 Last Admin: 08/30/21 19:54 Dose: 600 mg Documented by: Glucagon (Glucagon For Inj 1 Mg Vial) 1 mg SQ UD PRN; Protocol PRN Reason: Hypoglycemia Protocol Stop: 09/28/21 10:01 Glucose (Glucose 10 Tabs/Tube) 4 - 8 tabs PO UD PRN; Protocol PRN Reason: Hypoglycemia Protocol Stop: 09/28/21 10:01 Glucose (Glucose 40% Gel 15 Gm Tube) 15 - 30 gm PO UD PRN; Protocol PRN Reason: Hypoglycemia Protocol Stop: 09/28/21 10:01 Heparin Sodium/Dextrose (Heparin Iv Adult Wt-Based Standard *No* Bolus Protocol) 1 ea N/A ONE ONE; Protocol Stop: 08/31/21 09:38 Hydralazine HCl (Hydralazine 10 Mg Tab) 10 mg PO BID [facility] Stop: 09/28/21 10:29 Last Admin: 08/31/21 08:27 Dose: 10 mg Documented by: Heparin Sodium/Dextrose (Heparin Sodium/Dextrose) 25,000 units in 500 mls @ 0.02 mls/hr IV .Q24H [facility]; Protocol Stop: 09/30/21 09:59 Insulin Aspart (Insulin Aspart Per Unit) 0 units SC ACHS [facility] Stop: 09/28/21 10:01 Last Admin: 08/31/21 08:34 Dose: 6 units Documented by: Insulin Glargine (Insulin Glargine Solostar 100 Units/Ml 3 Ml Pen) 5 units SC DAILY [facility] Stop: 09/29/21 08:59 Last Admin: 08/31/21 08:28 Dose: 5 units Documented by: Ipratropium [place] (Ipratropium [place] Neb Soln 0.02% 2.5 Ml Vial) 0.5 mg INH Q4R PRN PRN Reason: Shortness Of Breath Or Wheezing Stop: 09/28/21 07:44 Isosorbide Mononitrate (Isosorbide [place] Extended Rel 60 Mg Tabcr) 60 mg PO DAILY [facility] Stop: 09/28/21 10:29 Last Admin: 08/31/21 08:26 Dose: 60 mg Documented by: Lactobacillus Acidoph/Casei/Rhamnos (Advanced Probiotic 1250 Mg Capsule) 2 cap PO QAM [facility] Stop: 09/28/21 10:29 Last Admin: 08/31/21 08:26 Dose: 2 cap Documented by: Levalbuterol HCl (Levalbuterol 1.25mg/0.5ml Neb) 1.25 mg INH Q4R PRN PRN Reason: Shortness Of Breath Or Wheezing Stop: 09/28/21 07:44 Levothyroxine Sodium (Levothyroxine Sodium 25 Mcg Tablet) 25 mcg PO DAILYBB [facility] Stop: 09/28/21 10:29 Last Admin: 08/31/21 05:08 Dose: 25 mcg Documented by: Magnesium Oxide (Magnesium Oxide 400 Mg Tab) 400 mg PO DAILY [facility] Stop: 09/28/21 10:29 Last Admin: 08/31/21 08:26 Dose: 400 mg Documented by: Metoprolol Succinate (Metoprolol Succ 25mg Ext Rel Tab) 75 mg PO BID [facility] Stop: 09/28/21 10:29 Last Admin: 08/31/21 08:26 Dose: 75 mg Documented by: Miscellaneous (Order Awaiting Action-Rhopressa) 1 ea N/A QS [facility] Stop: 09/28/21 15:59 Last Admin: 08/31/21 08:24 Dose: Not Given Documented by: Miscellaneous (Carbohydrates For Hypoglycemia ) 15 - 30 gm PO UD PRN PRN Reason: Hypoglycemia Protocol Stop: 09/28/21 10:01 Montelukast Sodium (Montelukast Sodium 10 Mg Tablet) 10 mg PO DAILY [facility] Stop: 09/28/21 10:29 Last Admin: 08/31/21 08:26 Dose: 10 mg Documented by: Multivitamins (Multivitamin Tab) 1 tab PO QAM [facility] Stop: 09/28/21 10:29 Last Admin: 08/31/21 08:27 Dose: 1 tab Documented by: Nitroglycerin (Nitroglycerin Sl 0.4 Mg/Tab Tab) 0.4 mg SL UD PRN PRN Reason: Chest Pain Stop: 09/28/21 10:01 Pantoprazole Sodium (Pantoprazole 40 Mg Tab) 40 mg PO DAILY [facility] Stop: 09/28/21 10:29 Last Admin: 08/31/21 08:27 Dose: 40 mg Documented by: Phenazopyridine HCl (Phenazopyridine Hcl 100 Mg Tab) 100 mg PO TID PRN PRN Reason: .UTI Stop: 09/28/21 10:01 Ropinirole HCl (Ropinirole Hcl 0.25 Mg Tablet) 0.25 mg PO HS [facility] Stop: 09/28/21 20:59 Last Admin: 08/30/21 19:54 Dose: 0.25 mg Documented by: (1) Chest pain Chest pain type: unspecified Qualified Code(s): R07.9 - Chest pain, unspecified
[2021-08-31] MEDS ORDERED: HEPARIN SODIUM/DEXTROSE 25,000 UNITS/500 ML BAG IV SCH (10:00)
--- NOTE | 2021-08-31 15:25 | Hospitalist Progress Note ---
Date of Service August 31, 2021 Assessment & Plan (1) Chest pain: (2) Palpitation: (3) Aspiration pneumonia: (4) Atrial fibrillation with RVR: Plan: 81 yo F w/ PMH of HFpEF (2020 TTE EF 50-54%), s/p TAVR, paravalvular aortic prosthesis regurgitation, CAD s/p stents, PVD s/p Sx, PAF on coumadin, HTN, HLD, Pul HTN, COPD, asthma, RLD, DM2, hypothyroidism, chronic anemia [baseline hemoglobin 10] and history of laryngospasm per records presented 1/2 to our ED with complaint of palpitation associated with substernal discomfort the night [employer]. Of note, patient was admitted September 2017 for pneumonia, likely aspiration pneumonitis and CT, no overt signs and a speech eval as per documentation. This time, patient went to PCP due to cough productive of yellowish sputum after choking on her saliva 5 days [employer] and was prescribed cefdini r/prednisone/albuterol inhaler. #. Recurrent Afib w/ RVR After few days of taking recently prescribed medication [as above], patient noted palpitation with substernal discomfort the night [employer]. Patient reports cough not improving much, but reports feeling better on the morning after arrival. Patient reports stopping albuterol and prednisone medication following her daug hter's advice [employer]. Pt has h/o angina every time she has an episode of a fib. Admitting troponin x3 negative Admitting EKG a flutter with variable AV block, rate of 114. ST depression in lead II, ?Elevation in V1 Follow-up EKG: NSR, 75 bpm, old inferior infarct Admitting CXR: Cardiomegaly with no acute cardiopulmonary abnormality. Likely triggered by aspiration pneumonitis. INR therapeutic at admission, Coumadin on hold currently in anticipation of any EP procedure. Telemetry reviewed, NSR. Cardiology on board: Plan to coordinate with EP and consideration for His bundle ablation and pacemaker. Held amiodarone d/t concerns of toxicity. N.p.o. midnight. INR subtherapeutic today, on IV heparin drip, to be stopped prior to EP procedure #. Likely aspiration pneumonitis History of laryngospasm, patient reports choking on saliva/food in the recent past History of concern for aspiration pneumonitis in her previous confinement for pneumonia. Patient reporting cough with yellow sputum. Patient feels better currently. Patient boosted against Covid, no history of Covid. Started on Unasyn 08/29/2021, speech eval --> appreciate recommendations Pulm evaluated the patient: Since the procalcitonin was negative, antibiotic discontinued. For questionable vocal cord issues---> recommends nonurgent out patient spirometry. Continue to monitor off antibiotics. #. Chest pain Chest pain associated with palpitation, radiating to jaw was the reason for presentation EKG as above Troponin trends negative. Cardiology on board, appreciate recommendation. #. Other chronic medical conditions: CAD, CHF, PVD status post surgery, HTN, HLD, DM2 CAD status post stent, 2020 TTE with EF of 50 to 54%, patient euvolemic to dry at presentation. Resume home meds as able, hold oral hypoglycemics, on sliding scale insulin. A1c 6.02 May 2021 Coumadin held for anticipation of procedure, SCDs. Currently on heparin drip to be held prior to EP procedure. Full code N.p.o. midnight. Admission and Anticipated Discharge Date Admission Date: August 29, 2021 Subjective Patient was sitting up in chair, on room air, NAD, no new acute events overnight. Telemetry reviewedNSR overnight and in the morning. Patient reports being constipated at baseline, minimal cough with yellow sputum, denies fever/chills/chest pain/palpitations/belly pain/other review of symptoms. Patient takes Dulcolax at home, requesting, will put her on that. Physical Exam Physical Exam: GENERAL: Alert and oriented x3. NAD, on RA. HEENT: No pallor, no icterus. Pupils equal, round and reactive to light. Oral mucosa moist. NECK: No JVD, no neck masses. HEART: S1 and S2 heard. regular rate and rhythm. No murmur, no gallop. RESPIRATORY SYSTEM: Normal AP diameter. No accessory muscle use. No wheezing, b/b crackles. ABDOMEN: Soft, bowel sounds present, nontender, no distention. CENTRAL NERVOUS SYSTEM: No facial droop. Speech is clear. Obeys simple commands. Moves extremities. EXTREMITIES: Trace BLE edema, no erythema seen. Results & Data Results & Data ([facility]) Vital Signs (Past 12 Hours) Vital Signs Temp Pulse Pulse Resp BP Pulse Ox 08/31/21 15:22 36.8 C 65 19 137/72 91 08/31/21 15:04 64 08/31/21 10:53 36.7 C 70 18 127/79 96 08/31/21 08:10 59 L 08/31/21 07:32 36.4 C L 60 17 172/81 H 96 (1) Chest pain Chest pain type: unspecified Qualified Code(s): R07.9 - Chest pain, unspecified
[2021-08-31 17:32] LABS: Partial Thromboplastin Ratio 2.2
[2021-08-31 17:35] LABS: Partial Thromboplastin Time 58.4 Seconds (21.0-31.0)
[2021-08-31] MEDS ORDERED: bisacodyL 5 MG TABEC PO PRN (17:50)
[2021-08-31] MEDS: rOPINIRole HCL 0.25 MG TABLET PO SCH (20:12)
[2021-08-31] MEDS: GABAPENTIN 600 MG TAB PO SCH (20:12)
[2021-08-31] MEDS: ATORVASTATIN 40 MG TAB PO SCH (20:12)
[2021-08-31] MEDS: BIMATOPROST 0.01% OP SOLN 2.5 ML BTL OP SCH (20:13)
[2021-09-01] MEDS: BENZONATATE 100 MG CAPSULE PO PRN ×3 (02:31→20:00)
[2021-09-01] MEDS: LEVOTHYROXINE SODIUM 25 MCG TABLET PO SCH (06:19)
[2021-09-01] MEDS ORDERED: VANCOMYCIN HCL 1000MG/20ML VIAL ONE (07:06)
[2021-09-01] MEDS ORDERED: BUPIVACAINE 0.25% 30 ML VIAL ONE (07:06)
[2021-09-01] MEDS ORDERED: LIDOCAINE 1% LOCAL 20 ML VIAL ONE (07:06)
[2021-09-01] MEDS ORDERED: WATER, STERILE FOR INJ 10 ML VIAL ONE (07:07)
[2021-09-01] MEDS ORDERED: MIDAZOLAM HCL 5 MG/ML 1 ML VIAL ONE ×2 (07:38→09:11)
[2021-09-01] MEDS ORDERED: fentaNYL citrate 100 MCG/2 ML VIAL ONE ×2 (07:38→09:06)
--- NOTE | 2021-09-01 08:05 | Pre Anesthesia Assessment ---
Date of Service September 01, 2021 Pre Sedation Assessment Vital Signs Temp Pulse Pulse Resp BP Pulse Ox 09/01/21 07:57 36.6 C 93 H 16 98/56 L 91 09/01/21 03:14 36.6 C 63 18 179/70 H 92 08/31/21 22:59 36.7 C 61 18 138/71 95 08/31/21 19:07 36.6 C 66 18 125/63 94 08/31/21 15:22 36.8 C 65 19 137/72 91 08/31/21 15:04 64 08/31/21 10:53 36.7 C 70 18 127/79 96 08/31/21 08:10 59 L Cardiovascular RRR, no murmur, no edema + bradycardic Respiratory normal respiratory effort, lungs clear to auscultation Pre-Sedation Airway Assessment Smoking Status: Never smoker Hx Sleep Apnea: No Short, Thick Neck: No Thyromental Distance: > or= 3.5 Finger Breadths Oral Cavity: + Dentures Mallampati Class: IV ASA: ASA4 NPO Status Date of Last Intake of Fluids: 08/31/21 Date of Last Intake of Solid Food: 08/31/21 Procedure Planning Contraindications for Sedation: none Current Medications Reviewed: Yes Notes The planned sedation has been discussed with the patient. Informed Consent was obtained. I have identified the patient, determined the appropriateness of sedation and have assessed the patient immediately prior to the procedure. All medicine(s) and interventions are by my order.
--- NOTE | 2021-09-01 08:06 | History & Physical Bridge Note ---
Date of Service September 01, 2021 History & Physical Bridge Note I have examined the patient, reviewed the History & Physical and in the interval since the performance of the History & Physical I have noted the following changes of clinical significance: pt with pAF with RVR resulting in angina; recommend dual chamber ppm and AVN ablation. Discussed the procedure and risks with the pt and she agreed to proceed. Consents signed.
[2021-09-01] MEDS ORDERED: Nursing to Pharmacy Communication SCH (11:00)
[2021-09-01] MEDS: INSULIN ASPART PER UNIT SC SCH ×4 (11:12→20:19)
[2021-09-01] MEDS ORDERED: hydrALAZINE HCL 20 MG/ML VIAL ONE (11:15)
[2021-09-01] MEDS: hydrALAZINE 10 MG TAB PO SCH ×2 (11:30→20:00)
[2021-09-01] MEDS: METOPROLOL SUCC 25MG EXT REL TAB PO SCH ×2 (11:31→20:01)
[2021-09-01] MEDS: ISOSORBIDE MONO EXTENDED REL 60 MG TABCR PO SCH (11:32)
[2021-09-01] MEDS: GABAPENTIN 300 MG CAP PO SCH (11:38)
[2021-09-01] MEDS: MONTELUKAST SODIUM 10 MG TABLET PO SCH (11:39)
[2021-09-01] MEDS: ADVANCED PROBIOTIC 1250 MG CAPSULE PO SCH (11:39)
[2021-09-01] MEDS: MAGNESIUM OXIDE 400 MG TAB PO SCH (11:39)
[2021-09-01] MEDS: PANTOprazole 40 MG TAB PO SCH (11:40)
[2021-09-01] MEDS: MULTIVITAMIN TAB PO SCH (11:40)
[2021-09-01] MEDS: CYANOCOBALAMIN 500 MCG TABLET (VITAMIN B-12) PO SCH (11:41)
[2021-09-01] MEDS: FLUTICASONE PROPIONATE NA SPR 16 GM BTL SCH (11:41)
[2021-09-01] MEDS: ASPIRIN 81 MG CHEW PO SCH (11:42)
[2021-09-01] MEDS: CLOPIDOGREL BISULFATE 75 MG TAB PO SCH (11:42)
[2021-09-01] MEDS: INSULIN GLARGINE SOLOSTAR 100 UNITS/ML 3 ML PEN SC SCH (11:52)
--- NOTE | 2021-09-01 14:24 | Electrocardiogram Report ---
Test Reason : Blood Pressure : / mmHG Vent. Rate : 070 BPM Atrial Rate : 070 BPM P-R Int : 156 ms QRS Dur : 126 ms QT Int : 478 ms P-R-T Axes : 055 -08 061 degrees QTc Int : 516 ms AV dual-paced rhythm Abnormal ECG When compared with ECG of 29-AUG-2021 03:38, Electronic ventricular pacemaker has replaced Sinus rhythm Confirmed by Toi Ren ([id number]) on 09/01/2021 2:23:58 PM Referred By: REFERRED SELF Confirmed By:Toi Ren
--- NOTE | 2021-09-01 14:26 | XRay Report ---
SINGLE VIEW CHEST CLINICAL HISTORY: Pacemaker implantation FINDINGS: An AP, portable, upright chest radiograph is compared to study dated 08/29/2021 and correlate d with chest CT dated 08/30/2021. A 2-lead cardiac pacemaker has been placed. Leads project over the ri ght atrial appendage and the right ventricle. The heart is enlarged noting atherosclerotic calcificat ion of the thoracic aorta. The mitral annulus is densely calcified. There is evidence of previous car diac valve surgery. The pulmonary vasculature is noncongested. Chronic interstitial thickening is sim ilar to previous. There is bibasilar scarring/atelectasis. No airspace consolidation or large pleural effusion is identified. No pneumothorax is seen. The skeletal structures are osteopenic. The bony th orax is grossly intact. Degenerative change is noted in the shoulders. IMPRESSION: 1. A 2-lead cardiac pacemaker has been implanted as above. No pneumothorax is identified post procedu re. 2. Cardiomegaly without radiographic evidence of congestive failure. 3. No airspace consolidation or large pleural effusion is identified. ACT 112: Negative or not required by law. Electronically signed by: Zachary Ignacio M.D. 09/01/2021 2:24 PM
--- NOTE | 2021-09-01 15:26 | Hospitalist Progress Note ---
Date of Service September 01, 2021 Assessment & Plan (1) Chest pain: (2) Palpitation: (3) Aspiration pneumonia: (4) Atrial fibrillation with RVR: Plan: per Dr. Ballard's notes with addendum: 81 yo F w/ PMH of HFpEF (2020 TTE EF 50-54%), s/p TAVR, paravalvular aortic prosthesis regurgitation, CAD s/p stents, PVD s/p Sx, PAF on coumadin, HTN, HLD, Pul HTN, COPD, asthma, RLD, DM2, hypothyroidism, chronic anemia [baseline hemoglobin 10] and history of laryngospasm per records presented 1 to our ED with complaint of palpitation associated with substernal discomfort the night [employer]. Of note, patient was admitted September 2017 for pneumonia, likely aspiration pneumonitis and CT, no overt signs and a speech eval as per documentation. This time, patient went to PCP due to cough productive of yellowish sputum after choking on her saliva 5 days [employer]IAN and was prescribed cefdinir/prednisone/albuterol inhaler. #. Recurrent Afib w/ RVR After few days of taking recently prescribed medication [as above], patient noted palpitation with substernal discomfort the night [employer] TE[employer]IAN. Patient reports cough not improving much, but reports feeling better on the morning after arrival. Patient reports stopping albuterol and prednisone medication following her daughter's advice [employer]IAN. Pt has h/o angina every time she has an episode of a fib. Admitting troponin x3 negative Admitting EKG a flutter with variable AV block, rate of 114. ST depression in lead II, ?Elevation in V1 Follow-up EKG: NSR, 75 bpm, old inferior infarct Admitting CXR: Cardiomegaly with no acute cardiopulmonary abnormality. Likely triggered by aspiration pneumonitis. INR therapeutic at admission, Coumadin on hold currently in anticipation of any EP procedure. Telemetry reviewed, NSR. Cardiology on board: Plan to coordinate with EP and consideration for His bundle ablation and pacemaker. Held amiodarone d/t concerns of toxicity. N.p.o. midnight. INR subtherapeutic today, on IV heparin drip, to be stopped prior to EP procedure 09/01/21 s/p Dual chamber ppm and AVN ablation continue to monitor heparin + coumadin on hold #. Likely aspiration pneumonitis History of laryngospasm, patient reports choking on saliva/food in the recent past History of concern for aspiration pneumonitis in her previous confinement for pneumonia. Patient reporting cough with yellow sputum. Patient feels better currently. Patient boosted against Covid, no history of Covid. Started on Unasyn 08/29/2021, speech eval --> appreciate recommendations Pulm evaluated the patient: Since the procalcitonin was negative, antibiotic discontinued. For questionable vocal cord issues---> recommends nonurgent outpatient spirometry. Continue to monitor off antibiotics. 09/01/21 afebrile no changes with breathing reports dry cough on fluticasone, singulair add Zyrtec for possible allergic rhinitis, postnasal drip syndrome #. Chest pain Chest pain associated with palpitation, radiating to jaw was the reason for presentation likely from A fib #. Other chronic medical conditions: CAD, CHF, PVD status post surgery, HTN, HLD, DM2 CAD status post stent, 2020 TTE with EF of 50 to 54%, patient euvolemic to dry at presentation. ISS Disposition pending Admission and Anticipated Discharge Date Admission Date: August 29, 2021 Subjective ff up for recurrent a fib etc seen s/p PM placement and AVN ablation alert, oriented x 3 comfortable states she feels fine overall, just tired no chest pain, dyspnea, palpitations, dizziness no bleeding has dry cough- chronic, attributes to post nasal drip no other symptoms Review of Systems Review of Systems: all noted and negative except for above Physical Exam Physical Exam: General- oriented x 3, not in distress, speaks in sentences with no effort or accessory muscle use Eyes- anicteric Neck- no JVD Lungs- clear breath sounds bilaterally, no rales/wheezes Heart- normal rate, regular rhythm; no murmurs l chest wall: dressing in place, no bleeding Abdomen- normal bowel sounds, nondistended, soft, nontender Extremities- no pretibial edema, no calf tenderness Neuro- alert, oriented x 3; no gross focal neurologic deficits Skin- warm & dry Results & Data Results & Data ([facility]) Vital Signs (Past 12 Hours) Vital Signs Temp Pulse Resp BP Pulse Ox 09/01/21 14:30 70 18 99/61 L 09/01/21 14:00 69 18 92/56 L 94 09/01/21 13:30 70 18 113/68 09/01/21 13:00 69 18 134/69 09/01/21 12:30 68 18 147/69 H 09/01/21 12:15 68 18 158/75 H 92 09/01/21 11:37 71 18 166/71 H 09/01/21 11:15 67 20 211/89 H 95 09/01/21 10:55 69 20 208/92 H 94 09/01/21 07:57 36.6 C 93 H 16 98/56 L 91 all noted and reviewed including below (1) Chest pain Chest pain type: unspecified Qualified Code(s): R07.9 - Chest pain, unspecified
[2021-09-01] MEDS ORDERED: WARFARIN SOD 5 MG TAB PO ONE (16:00)
[2021-09-01] MEDS: ACETAMINOPHEN 325 MG TAB PO PRN ×2 (18:25→22:31)
[2021-09-01] MEDS: GABAPENTIN 600 MG TAB PO SCH (20:00)
[2021-09-01] MEDS: ATORVASTATIN 40 MG TAB PO SCH (20:00)
[2021-09-01] MEDS: rOPINIRole HCL 0.25 MG TABLET PO SCH (20:00)
[2021-09-01] MEDS: BIMATOPROST 0.01% OP SOLN 2.5 ML BTL OP SCH (20:01)
[2021-09-02] MEDS: ACETAMINOPHEN 325 MG TAB PO PRN ×3 (06:13→20:15)
[2021-09-02] MEDS: LEVOTHYROXINE SODIUM 25 MCG TABLET PO SCH (06:13)
[2021-09-02] MEDS: INSULIN ASPART PER UNIT SC SCH ×4 (07:50→20:14)
[2021-09-02] MEDS: PANTOprazole 40 MG TAB PO SCH (08:06)
[2021-09-02] MEDS: ASPIRIN 81 MG CHEW PO SCH (08:06)
[2021-09-02] MEDS: ADVANCED PROBIOTIC 1250 MG CAPSULE PO SCH (08:07)
[2021-09-02] MEDS: hydrALAZINE 10 MG TAB PO SCH ×2 (08:07→20:13)
[2021-09-02] MEDS: CLOPIDOGREL BISULFATE 75 MG TAB PO SCH (08:07)
[2021-09-02] MEDS: ISOSORBIDE MONO EXTENDED REL 60 MG TABCR PO SCH (08:07)
[2021-09-02] MEDS: MAGNESIUM OXIDE 400 MG TAB PO SCH (08:08)
[2021-09-02] MEDS: INSULIN GLARGINE SOLOSTAR 100 UNITS/ML 3 ML PEN SC SCH (08:08)
[2021-09-02] MEDS: MULTIVITAMIN TAB PO SCH (08:08)
[2021-09-02] MEDS: CYANOCOBALAMIN 500 MCG TABLET (VITAMIN B-12) PO SCH (08:08)
[2021-09-02] MEDS: METOPROLOL SUCC 25MG EXT REL TAB PO SCH ×2 (08:08→20:14)
[2021-09-02] MEDS: MONTELUKAST SODIUM 10 MG TABLET PO SCH (08:09)
[2021-09-02] MEDS: FLUTICASONE PROPIONATE NA SPR 16 GM BTL SCH (08:09)
[2021-09-02] MEDS: GABAPENTIN 300 MG CAP PO SCH (08:10)
--- NOTE | 2021-09-02 11:23 | Cardiology Progress Note ---
Date of Service September 02, 2021 Assessment & Plan (1) Chest pain: (2) Atrial fibrillation with RVR: (3) Chronic anticoagulation: (4) ASCVD (arteriosclerotic cardiovascular disease): (5) COPD (chronic obstructive pulmonary disease): (6) S/P TAVR (transcatheter aortic valve replacement): (7) CAD (coronary artery disease): Plan: The amiodarone was on hold and I discontinued it today. She should not return home on amiodarone. If patient can be restarted on warfarin today without a bridge. I started her on warfarin 5 mg daily. I discontinued the aspirin. She can remain on Plavix with the warfarin. Pacemaker interrogation revealed the device is functioning appropriately. She can be discharged per the hospitalist service and I will arrange follow-up at our clinic. Admission and Anticipated Discharge Date Admission Date: August 29, 2021 Subjective Patient had a successful His bundle ablation with pacemaker insertion yesterday. She has a little soreness around the pacemaker site but other than that she is doing well. Her device was interrogated today and functioning appropriately. She is in a paced rhythm on telemetry. Review of Systems Review of Systems: Review of Systems: See HPI for pertinent positives. All other 10 point review of systems are negative. Physical Exam Physical Exam: General: no acute distress and stated age Head: normocephalic, no masses, lesions, tenderness or abnormalities Eyes: conjunctiva are pink and non-injected, sclera clear Neck: supple, no adenopathy, no bruits, normal jugular venous pulse, no hepatojugular reflux Chest: normal shape and normal respiratory effort Lungs: clear to auscultation and percussion Cardiac Exam: - regular rate & rhythm, no murmurs gallops or rubs - normal S1, normal S2 Pulses: 2(+) throughout Abdomen: abdomen soft, non-tender, no abnormal masses and no hepatosplenomegaly Musculoskeletal: no gait disturbance, no joint inflammation, no deforming arthritis Extremities: Pacemaker site is dry and clean. Neuro: grossly normal exam Results & Data ([facility]) Vital Signs (Past 12 Hours) Vital Signs Temp Pulse Resp BP Pulse Ox 09/02/21 10:54 36.9 C 70 17 145/74 H 96 09/02/21 07:23 36.7 C 70 17 174/77 H 94 09/02/21 03:45 36.6 C 70 19 158/73 H 95 Laboratory Results Laboratory Results - last 24 hr 09/01/21 09/01/21 09/01/21 11:51 16:13 20:11 POC Glucose 249 H 238 H 210 H 09/02/21 07:01 POC Glucose 226 H Medications Administered Current Inpatient Medications Acetaminophen (Acetaminophen 325 Mg Tab) 650 mg PO Q4H PRN PRN Reason: Pain or Fever Stop: 09/28/21 10:01 Last Admin: 09/02/21 06:13 Dose: 650 mg Documented by: Amiodarone HCl (Amiodarone 200 Mg Tab) 100 mg PO DAILY [facility] Stop: 09/29/21 08:59 Last Admin: 08/30/21 08:41 Dose: 100 mg Documented by: Aspirin (Aspirin 81 Mg Chew) 81 mg PO DAILY [facility] Stop: 09/28/21 10:14 Last Admin: 09/02/21 08:06 Dose: 81 mg Documented by: Atorvastatin Calcium (Atorvastatin 40 Mg Tab) 80 mg PO [facility] Stop: 09/28/21 20:59 Last Admin: 09/01/21 20:00 Dose: 80 mg Documented by: Benzonatate (Benzonatate 100 Mg Capsule) 100 mg PO TID PRN PRN Reason: Cough Stop: 09/30/21 00:11 Last Admin: 09/01/21 20:00 Dose: 100 mg Documented by: Bimatoprost (Bimatoprost 0.01% Op Soln 2.5 Ml Btl) 1 drops OP HS [facility] Stop: 09/28/21 20:59 Last Admin: 09/01/21 20:01 Dose: 1 drops Documented by: Bisacodyl (Bisacodyl 5 Mg Tabec) 5 mg PO DAILY PRN PRN Reason: Constipation Stop: 09/30/21 17:49 Clopidogrel Bisulfate (Clopidogrel Bisulfate 75 Mg Tab) [facility] Stop: 09/28/21 10:29 Last Admin: 09/02/21 08:07 Dose: 75 mg Documented by: Cyanocobalamin (Cyanocobalamin 500 Mcg Tablet (Vitamin B-12)) 1,000 mcg PO QAM [facility] Stop: 09/28/21 10:29 Last Admin: 09/02/21 08:08 Dose: 1,000 mcg Documented by: Dextrose (Dextrose 50% 50 Ml Syringe) 25 - 50 ml IV UD PRN; Protocol PRN Reason: Hypoglycemia Protocol Stop: 09/28/21 10:01 Docusate Sodium (Docusate Sodium 100 Mg Cap) 100 mg PO BID PRN PRN Reason: Constipation Stop: 09/28/21 10:09 Last Admin: 08/31/21 10:18 Dose: 100 mg Documented by: Fluticasone Propionate (Fluticasone Propionate Na Spr 16 Gm Btl) 2 sprays NA DAILY [facility] Stop: 09/28/21 10:29 Last Admin: 09/02/21 08:09 Dose: 2 sprays Documented by: Gabapentin (Gabapentin 300 Mg Cap) 300 mg PO QAM [facility] Stop: 09/28/21 10:29 Last Admin: 09/02/21 08:10 Dose: 300 mg Documented by: Gabapentin (Gabapentin 600 Mg Tab) 600 mg PO HS [facility] Stop: 09/28/21 20:59 Last Admin: 09/01/21 20:00 Dose: 600 mg Documented by: Glucagon (Glucagon For Inj 1 Mg Vial) 1 mg SQ UD PRN; Protocol PRN Reason: Hypoglycemia Protocol Stop: 09/28/21 10:01 Glucose (Glucose 10 Tabs/Tube) 4 - 8 tabs PO UD PRN; Protocol PRN Reason: Hypoglycemia Protocol Stop: 09/28/21 10:01 Glucose (Glucose 40% Gel 15 Gm Tube) 15 - 30 gm PO UD PRN; Protocol PRN Reason: Hypoglycemia Protocol Stop: 09/28/21 10:01 Hydralazine HCl (Hydralazine 10 Mg Tab) 10 mg PO BID [facility] Stop: 09/28/21 10:29 Last Admin: 09/02/21 08:07 Dose: 10 mg Documented by: Insulin Aspart (Insulin Aspart Per Unit) 0 units SC ACHS [facility] Stop: 09/28/21 10:01 Last Admin: 09/02/21 07:50 Dose: 8 units Documented by: Insulin Glargine (Insulin Glargine Solostar 100 Units/Ml 3 Ml Pen) 5 units SC DAILY [facility] Stop: 09/29/21 08:59 Last Admin: 09/02/21 08:08 Dose: 5 units Documented by: Ipratropium [place] (Ipratropium [place] Neb Soln 0.02% 2.5 Ml Vial) 0.5 mg INH Q4R PRN PRN Reason: Shortness Of Breath Or Wheezing Stop: 09/28/21 07:44 Isosorbide Mononitrate (Isosorbide [place] Extended Rel 60 Mg Tabcr) 60 mg PO DAILY [facility] Stop: 09/28/21 10:29 Last Admin: 09/02/21 08:07 Dose: 60 mg Documented by: Lactobacillus Acidoph/Casei/Rhamnos (Advanced Probiotic 1250 Mg Capsule) 2 cap PO QAM [facility] Stop: 09/28/21 10:29 Last Admin: 09/02/21 08:07 Dose: 2 cap Documented by: Levalbuterol HCl (Levalbuterol 1.25mg/0.5ml Neb) 1.25 mg INH Q4R PRN PRN Reason: Shortness Of Breath Or Wheezing Stop: 09/28/21 07:44 Levothyroxine Sodium (Levothyroxine Sodium 25 Mcg Tablet) 25 mcg PO DAILYBB [facility] Stop: 09/28/21 10:29 Last Admin: 09/02/21 06:13 Dose: 25 mcg Documented by: Magnesium Oxide (Magnesium Oxide 400 Mg Tab) 400 mg PO DAILY [facility] Stop: 09/28/21 10:29 Last Admin: 09/02/21 08:08 Dose: 400 mg Documented by: Metoprolol Succinate (Metoprolol Succ 25mg Ext Rel Tab) 75 mg PO BID [facility] Stop: 09/28/21 10:29 Last Admin: 09/02/21 08:08 Dose: 75 mg Documented by: Miscellaneous (Order Awaiting Action-Rhopressa) 1 ea N/A QS [facility] Stop: 09/28/21 15:59 Last Admin: 09/02/21 08:06 Dose: Not Given Documented by: Miscellaneous (Carbohydrates For Hypoglycemia ) 15 - 30 gm PO UD PRN PRN Reason: Hypoglycemia Protocol Stop: 09/28/21 10:01 Montelukast Sodium (Montelukast Sodium 10 Mg Tablet) 10 mg PO DAILY [facility] Stop: 09/28/21 10:29 Last Admin: 09/02/21 08:09 Dose: 10 mg Documented by: Multivitamins (Multivitamin Tab) 1 tab PO QAM [facility] Stop: 09/28/21 10:29 Last Admin: 09/02/21 08:08 Dose: 1 tab Documented by: Nitroglycerin (Nitroglycerin Sl 0.4 Mg/Tab Tab) 0.4 mg SL UD PRN PRN Reason: Chest Pain Stop: 09/28/21 10:01 Pantoprazole Sodium (Pantoprazole 40 Mg Tab) 40 mg PO DAILY [facility] Stop: 09/28/21 10:29 Last Admin: 09/02/21 08:06 Dose: 40 mg Documented by: Phenazopyridine HCl (Phenazopyridine Hcl 100 Mg Tab) 100 mg PO TID PRN PRN Reason: .UTI Stop: 09/28/21 10:01 Ropinirole HCl (Ropinirole Hcl 0.25 Mg Tablet) 0.25 mg PO HS [facility] Stop: 09/28/21 20:59 Last Admin: 09/01/21 20:00 Dose: 0.25 mg Documented by: (1) Chest pain Chest pain type: unspecified Qualified Code(s): R07.9 - Chest pain, unspecified
[2021-09-02] MEDS: LIDOCAINE 5% 1 PATCH TD SCH (13:47)
[2021-09-02] MEDS ORDERED: WARFARIN SOD 5 MG TAB PO SCH (16:00)
--- NOTE | 2021-09-02 18:24 | Hospitalist Progress Note ---
Date of Service September 02, 2021 Assessment & Plan (1) Chest pain: (2) Palpitation: (3) Aspiration pneumonia: (4) Atrial fibrillation with RVR: Plan: per Dr. 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 Of note, patient was admitted September 2017 for pneumonia, likely aspiration pneumonitis and CT, no overt signs and a speech eval as per documentation. This time, patient went to PCP due to cough productive of yellowish sputum after choking on her saliva 5 days NURSE PRACTITIONER MANAGER and was prescribed cefdinir/prednisone/albuterol inhaler. #. 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 Patient reports cough not improving much, but reports feeling better on the morning after arrival. Patient reports stopping albuterol and prednisone medication following her daughter's advice NURSE PRACTITIONER MANAGER. Pt has h/o angina every time she has an episode of a fib. Admitting troponin x3 negative Admitting EKG a flutter with variable AV block, rate of 114. ST depression in lead II, ?Elevation in V1 Follow-up EKG: NSR, 75 bpm, old inferior infarct Admitting CXR: Cardiomegaly with no acute cardiopulmonary abnormality. Likely triggered by aspiration pneumonitis. INR therapeutic at admission, Coumadin on hold currently in anticipation of any EP procedure. Telemetry reviewed, NSR. Cardiology on board: Plan to coordinate with EP and consideration for His bundle ablation and pacemaker. Held amiodarone d/t concerns of toxicity. N.p.o. midnight. INR subtherapeutic today, on IV heparin drip, to be stopped prior to EP procedure 09/01/21 s/p Dual chamber ppm and AVN ablation 09/02/2021 Amiodarone discontinued Coumadin restarted Lidoderm patch, warm compress continue to monitor #. Likely aspiration pneumonitis History of laryngospasm, patient reports choking on saliva/food in the recent past History of concern for aspiration pneumonitis in her previous confinement for pneumonia. Patient reporting cough with yellow sputum. Patient feels better currently. Patient boosted against Covid, no history of Covid. Started on Unasyn 08/29/2021, speech eval --> appreciate recommendations Pulm evaluated the patient: Since the procalcitonin was negative, antibiotic discontinued. For questionable vocal cord issues---> recommends nonurgent outpatient spirometry. Continue to monitor off antibiotics. 09/02/21 afebrile no changes with breathing reports dry cough on fluticasone, singulair add Zyrtec for possible allergic rhinitis, postnasal drip syndrome #. Chest pain Chest pain associated with palpitation, radiating to jaw was the reason for presentation likely from A fib #. Other chronic medical conditions: CAD, CHF, PVD status post surgery, HTN, HLD, DM2 CAD status post stent, 2020 TTE with EF of 50 to 54%, patient euvolemic to dry at presentation. ISS Disposition pending Admission and Anticipated Discharge Date Admission Date: August 29, 2021 Subjective Follow-up for recurrent atrial fibrillation, status post AV node ablation, pacemaker placement, 7 Seen resting in bed, awake, alert, in good spirits States she feels fine overall no chest pain, dyspnea, palpitations, dizziness Reports muscle pain over the left posterior shoulder region, worse with palpation No other symptoms Review of Systems Review of Systems: all noted and negative except for above Physical Exam Physical Exam: General- oriented x 3, not in distress, speaks in sentences with no effort or accessory muscle use Eyes- anicteric Neck- no JVD Lungs- clear breath sounds bilaterally, no rales/wheezes Heart- normal rate, regular rhythm; no murmurs Dressing in place over pacemaker site: No hematoma, edema noted Positive tenderness to the Abdomen- normal bowel sounds, nondistended, soft, nontender Extremities- no pretibial edema, no calf tenderness Left posterior trapezius region, no edema, hematoma Neuro- alert, oriented x 3; no gross focal neurologic deficits Skin- warm & dry Results & Data Results & Data ([facility]) Vital Signs (Past 12 Hours) Vital Signs Temp Pulse Resp BP Pulse Ox 09/02/21 15:17 36.7 C 68 18 126/71 96 09/02/21 10:54 36.9 C 70 17 145/74 H 96 09/02/21 07:23 36.7 C 70 17 174/77 H 94 all noted and reviewed including below (1) Chest pain Chest pain type: unspecified Qualified Code(s): R07.9 - Chest pain, unspecified
[2021-09-02] MEDS: ATORVASTATIN 40 MG TAB PO SCH (20:12)
[2021-09-02] MEDS: BIMATOPROST 0.01% OP SOLN 2.5 ML BTL OP SCH (20:13)
[2021-09-02] MEDS: GABAPENTIN 600 MG TAB PO SCH (20:13)
[2021-09-02] MEDS: BENZONATATE 100 MG CAPSULE PO PRN (20:15)
[2021-09-02] MEDS: rOPINIRole HCL 0.25 MG TABLET PO SCH (20:15)
[2021-09-02] MEDS: traMADol HCL 50 MG TABLET PO PRN (21:24)
[2021-09-03] MEDS: traMADol HCL 50 MG TABLET PO PRN ×2 (03:45→09:38)
[2021-09-03] MEDS: LEVOTHYROXINE SODIUM 25 MCG TABLET PO SCH (03:46)
[2021-09-03 07:55] LABS: INR 1.3 (0.9-1.1)
[2021-09-03] MEDS: INSULIN ASPART PER UNIT SC SCH ×2 (08:08→11:54)
[2021-09-03] MEDS: INSULIN GLARGINE SOLOSTAR 100 UNITS/ML 3 ML PEN SC SCH (08:09)
[2021-09-03] MEDS: LIDOCAINE 5% 1 PATCH TD SCH (08:10)
[2021-09-03] MEDS: CLOPIDOGREL BISULFATE 75 MG TAB PO SCH (08:13)
[2021-09-03] MEDS: METOPROLOL SUCC 25MG EXT REL TAB PO SCH (08:13)
[2021-09-03] MEDS: hydrALAZINE 10 MG TAB PO SCH (08:13)
[2021-09-03] MEDS: ADVANCED PROBIOTIC 1250 MG CAPSULE PO SCH (08:13)
[2021-09-03] MEDS: MONTELUKAST SODIUM 10 MG TABLET PO SCH (08:13)
[2021-09-03] MEDS: MULTIVITAMIN TAB PO SCH (08:13)
[2021-09-03] MEDS: GABAPENTIN 300 MG CAP PO SCH (08:13)
[2021-09-03] MEDS: MAGNESIUM OXIDE 400 MG TAB PO SCH (08:14)
[2021-09-03] MEDS: CYANOCOBALAMIN 500 MCG TABLET (VITAMIN B-12) PO SCH (08:15)
[2021-09-03] MEDS: PANTOprazole 40 MG TAB PO SCH (08:15)
[2021-09-03] MEDS: FLUTICASONE PROPIONATE NA SPR 16 GM BTL SCH (08:15)
[2021-09-03] MEDS: ISOSORBIDE MONO EXTENDED REL 60 MG TABCR PO SCH (08:15)
[2021-09-03] MEDS: ACETAMINOPHEN 325 MG TAB PO PRN (09:17)
--- NOTE | 2021-09-03 10:48 | Cardiology Progress Note ---
Date of Service September 03, 2021 Assessment & Plan (1) Chest pain: (2) Atrial fibrillation with RVR: (3) Chronic anticoagulation: (4) ASCVD (arteriosclerotic cardiovascular disease): (5) COPD (chronic obstructive pulmonary disease): (6) S/P TAVR (transcatheter aortic valve replacement): (7) CAD (coronary artery disease): Plan: The patient is waiting to be discharged. She mentioned utilizing a TENS unit for chronic neck pain. I do not believe this is a good idea near the pacemaker. I will arrange follow-up with our clinic. Admission and Anticipated Discharge Date Admission Date: August 29, 2021 Subjective Patient had an uneventful night. Review of Systems Review of Systems: Review of Systems: See HPI for pertinent positives. All other 10 point review of systems are negative. Physical Exam Physical Exam: General: no acute distress and stated age Head: normocephalic, no masses, lesions, tenderness or abnormalities Eyes: conjunctiva are pink and non-injected, sclera clear Neck: supple, no adenopathy, no bruits, normal jugular venous pulse, no hepatojugular reflux Chest: normal shape and normal respiratory effort Lungs: clear to auscultation and percussion Cardiac Exam: - regular rate & rhythm, no murmurs gallops or rubs - normal S1, normal S2 Pulses: 2(+) throughout Abdomen: abdomen soft, non-tender, no abnormal masses and no hepatosplenomegaly Musculoskeletal: no gait disturbance, no joint inflammation, no deforming arthritis Extremities: Pacemaker site is dry and clean. Neuro: grossly normal exam Results & Data ([facility]) Vital Signs (Past 12 Hours) Vital Signs Temp Pulse Resp BP Pulse Ox 09/03/21 08:00 37.0 C 72 20 160/69 H 97 09/03/21 03:16 36.8 C 69 19 171/78 H 93 09/02/21 23:09 130/58 L 09/02/21 22:56 36.8 C 82 19 95 Laboratory Results Laboratory Results - last 24 hr 09/02/21 09/02/21 09/02/21 11:20 16:14 19:53 PT INR POC Glucose 281 H 233 H 287 H 09/03/21 09/03/21 07:18 07:22 PT 13.0 H INR 1.3 H POC Glucose 244 H Medications Administered Current Inpatient Medications Acetaminophen (Acetaminophen 325 Mg Tab) 650 mg PO Q4H PRN PRN Reason: Pain or Fever Stop: 09/28/21 10:01 Last Admin: 09/03/21 09:17 Dose: 650 mg Documented by: Atorvastatin Calcium (Atorvastatin 40 Mg Tab) 80 mg PO [facility] Stop: 09/28/21 20:59 Last Admin: 09/02/21 20:12 Dose: 80 mg Documented by: Benzonatate (Benzonatate 100 Mg Capsule) 100 mg PO TID PRN PRN Reason: Cough Stop: 09/30/21 00:11 Last Admin: 09/02/21 20:15 Dose: 100 mg Documented by: Bimatoprost (Bimatoprost 0.01% Op Soln 2.5 Ml Btl) 1 drops OP [facility] Stop: 09/28/21 20:59 Last Admin: 09/02/21 20:13 Dose: 1 drops Documented by: Bisacodyl (Bisacodyl 5 Mg Tabec) 5 mg PO DAILY PRN PRN Reason: Constipation Stop: 09/30/21 17:49 Clopidogrel Bisulfate (Clopidogrel Bisulfate 75 Mg Tab) 75 mg PO [facility] Stop: 09/28/21 10:29 Last Admin: 09/03/21 08:13 Dose: 75 mg Documented by: Cyanocobalamin (Cyanocobalamin 500 Mcg Tablet (Vitamin B-12)) 1,000 mcg PO [facility] Stop: 09/28/21 10:29 Last Admin: 09/03/21 08:15 Dose: 1,000 mcg Documented by: Dextrose (Dextrose 50% 50 Ml Syringe) 25 - 50 ml IV UD PRN; Protocol PRN Reason: Hypoglycemia Protocol Stop: 09/28/21 10:01 Docusate Sodium (Docusate Sodium 100 Mg Cap) 100 mg PO BID PRN PRN Reason: Constipation Stop: 09/28/21 10:09 Last Admin: 08/31/21 10:18 Dose: 100 mg Documented by: Fluticasone Propionate (Fluticasone Propionate Na Spr 16 Gm Btl) 2 sprays NA DAILY [facility] Stop: 09/28/21 10:29 Last Admin: 09/03/21 08:15 Dose: 2 sprays Documented by: Gabapentin (Gabapentin 300 Mg Cap) 300 mg PO [facility] Stop: 09/28/21 10:29 Last Admin: 09/03/21 08:13 Dose: 300 mg Documented by: Gabapentin (Gabapentin 600 Mg Tab) 600 mg PO HS [facility] Stop: 09/28/21 20:59 Last Admin: 09/02/21 20:13 Dose: 600 mg Documented by: Glucagon (Glucagon For Inj 1 Mg Vial) 1 mg SQ UD PRN; Protocol PRN Reason: Hypoglycemia Protocol Stop: 09/28/21 10:01 Glucose (Glucose 10 Tabs/Tube) 4 - 8 tabs PO UD PRN; Protocol PRN Reason: Hypoglycemia Protocol Stop: 09/28/21 10:01 Glucose (Glucose 40% Gel 15 Gm Tube) 15 - 30 gm PO UD PRN; Protocol PRN Reason: Hypoglycemia Protocol Stop: 09/28/21 10:01 Hydralazine HCl (Hydralazine 10 Mg Tab) 10 mg PO BID [facility] Stop: 09/28/21 10:29 Last Admin: 09/03/21 08:13 Dose: 10 mg Documented by: Insulin Aspart (Insulin Aspart Per Unit) 0 units SC ACHS [facility] Stop: 09/28/21 10:01 Last Admin: 09/03/21 08:08 Dose: 8 units Documented by: Insulin Glargine (Insulin Glargine Solostar 100 Units/Ml 3 Ml Pen) 5 units SC DAILY [facility] Stop: 09/29/21 08:59 Last Admin: 09/03/21 08:09 Dose: 5 units Documented by: Ipratropium Menard (Ipratropium [place] Neb Soln 0.02% 2.5 Ml Vial) 0.5 mg INH Q4R PRN PRN Reason: Shortness Of Breath Or Wheezing Stop: 09/28/21 07:44 Isosorbide Mononitrate (Isosorbide [place] Extended Rel 60 Mg Tabcr) 60 mg PO DAILY [facility] Stop: 09/28/21 10:29 Last Admin: 09/03/21 08:15 Dose: 60 mg Documented by: Lactobacillus Acidoph/Casei/Rhamnos (Advanced Probiotic 1250 Mg Capsule) 2 cap PO QAM [facility] Stop: 09/28/21 10:29 Last Admin: 09/03/21 08:13 Dose: 2 cap Documented by: Levalbuterol HCl (Levalbuterol 1.25mg/0.5ml Neb) 1.25 mg INH Q4R PRN PRN Reason: Shortness Of Breath Or Wheezing Stop: 02/01/22 07:44 Levothyroxine Sodium (Levothyroxine Sodium 25 Mcg Tablet) 25 mcg PO DAILYBB [facility] Stop: 09/28/21 10:29 Last Admin: 09/03/21 03:46 Dose: 25 mcg Documented by: Lidocaine (Lidocaine 5% 1 Patch) 1 patch TD QAM [facility] Stop: 10/02/21 12:59 Last Admin: 09/03/21 08:10 Dose: 1 patch Documented by: Magnesium Oxide (Magnesium Oxide 400 Mg Tab) 400 mg PO DAILY [facility] Stop: 09/28/21 10:29 Last Admin: 09/03/21 08:14 Dose: 400 mg Documented by: Metoprolol Succinate (Metoprolol Succ 25mg Ext Rel Tab) 75 mg PO BID [facility] Stop: 09/28/21 10:29 Last Admin: 09/03/21 08:13 Dose: 75 mg Documented by: Miscellaneous (Order Awaiting Action-Rhopressa) 1 ea N/A QS [facility] Stop: 09/28/21 15:59 Last Admin: 09/03/21 08:15 Dose: Not Given Documented by: Miscellaneous (Carbohydrates For Hypoglycemia ) 15 - 30 gm PO UD PRN PRN Reason: Hypoglycemia Protocol Stop: 09/28/21 10:01 Miscellaneous (Remove Lidoderm Patch) 1 ea N/A DAILY@2100 [facility] Stop: 10/02/21 20:59 Last Admin: 09/02/21 20:19 Dose: 1 ea Documented by: Montelukast Sodium (Montelukast Sodium 10 Mg Tablet) 10 mg PO DAILY [facility] Stop: 09/28/21 10:29 Last Admin: 09/03/21 08:13 Dose: 10 mg Documented by: Multivitamins (Multivitamin Tab) 1 tab PO QAM [facility] Stop: 09/28/21 10:29 Last Admin: 09/03/21 08:13 Dose: 1 tab Documented by: Nitroglycerin (Nitroglycerin Sl 0.4 Mg/Tab Tab) 0.4 mg SL UD PRN PRN Reason: Chest Pain Stop: 09/28/21 10:01 Pantoprazole Sodium (Pantoprazole 40 Mg Tab) 40 mg PO DAILY [facility] Stop: 09/28/21 10:29 Last Admin: 09/03/21 08:15 Dose: 40 mg Documented by: Phenazopyridine HCl (Phenazopyridine Hcl 100 Mg Tab) 100 mg PO TID PRN PRN Reason: .UTI Stop: 09/28/21 10:01 Ropinirole HCl (Ropinirole Hcl 0.25 Mg Tablet) 0.25 mg PO HS [facility] Stop: 09/28/21 20:59 Last Admin: 09/02/21 20:15 Dose: 0.25 mg Documented by: Tramadol HCl (Tramadol Hcl 50 Mg Tablet) 50 mg PO Q6H PRN PRN Reason: Pain Stop: 10/02/21 21:15 Last Admin: 09/03/21 09:38 Dose: 50 mg Documented by: Warfarin Sodium (Warfarin Sod 5 Mg Tab) 5 mg PO DAILY@1600 [facility] Stop: 10/02/21 15:59 Last Admin: 09/02/21 16:15 Dose: 5 mg Documented by: (1) Chest pain Chest pain type: unspecified Qualified Code(s): R07.9 - Chest pain, unspecified
--- NOTE | 2021-09-03 11:38 | Hospitalist Progress Note ---
Date of Service September 03, 2021 Assessment & Plan (1) Chest pain: (2) Palpitation: (3) Aspiration pneumonia: (4) Atrial fibrillation with RVR: Plan: per Dr. 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 Of note, patient was admitted September 2017 for pneumonia, likely aspiration pneumonitis and CT, no overt signs and a speech eval as per documentation. 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 #. 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 Patient reports cough not improving much, but reports feeling better on the morning after arrival. 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 Pt has h/o angina every time she has an episode of a fib. Admitting troponin x3 negative Admitting EKG a flutter with variable AV block, rate of 114. ST depression in lead II, ?Elevation in V1 Follow-up EKG: NSR, 75 bpm, old inferior infarct Admitting CXR: Cardiomegaly with no acute cardiopulmonary abnormality. Likely triggered by aspiration pneumonitis. INR therapeutic at admission, Coumadin on hold currently in anticipation of any EP procedure. Telemetry reviewed, NSR. Cardiology on board: Plan to coordinate with EP and consideration for His bundle ablation and pacemaker. Held amiodarone d/t concerns of toxicity. N.p.o. midnight. INR subtherapeutic today, on IV heparin drip, to be stopped prior to EP procedure 09/01/21 s/p Dual chamber ppm and AVN ablation 09/02/2021 Amiodarone discontinued Coumadin restarted Lidoderm patch, warm compress continue to monitor 1/7/22 Cleared for discharge as per cardiology service Pacemaker check and wound check next week per cardiology service Tramadol as needed for posterior trapezius pain, also advised warm compress on the area, gentle exercises #. Likely aspiration pneumonitis History of laryngospasm, patient reports choking on saliva/food in the recent past History of concern for aspiration pneumonitis in her previous confinement for pneumonia. Patient reporting cough with yellow sputum. Patient feels better currently. Patient boosted against Covid, no history of Covid. Started on Unasyn 08/29/2021, speech eval --> appreciate recommendations Pulm evaluated the patient: Since the procalcitonin was negative, antibiotic discontinued. For questionable vocal cord issues---> recommends nonurgent outpa tient spirometry. Continue to monitor off antibiotics. 09/02/21 afebrile no changes with breathing reports dry cough on fluticasone, singulair add Zyrtec for possible allergic rhinitis, postnasal drip syndrome Tessalon Perles as needed for cough #. Chest pain Chest pain associated with palpitation, radiating to jaw was the reason for presentation likely from A fib resolved #. Other chronic medical conditions: CAD, CHF, PVD status post surgery, HTN, HLD, DM2 CAD status post stent, 2020 TTE with EF of 50 to 54%, patient euvolemic to dry at presentation. ISS Disposition d/c home ff up with PCP in 1 week pacemaker check at cardiology clinic next week plan of care discussed with patient in detail and at length all questions answered she is understanding, agreeable, comfortable with the plan of care Admission and Anticipated Discharge Date Admission Date: August 29, 2021 Subjective Follow-up for recurrent A. fib, etc. Seen sitting up in bedside chair, in good spirits, comfortable States she feels fine overall no chest pain, dyspnea, palpitations, dizziness Ambulating with no problems Still has some localized pain/tenderness on the posterior trapezius of the left shoulder No weakness or numbness States she is ready and would like to be discharged today Review of Systems Review of Systems: all noted and negative except for above Physical Exam Physical Exam: General- oriented x 3, not in distress, speaks in sentences with no effort or accessory muscle use Eyes- anicteric Neck- no JVD Lungs- clear breath sounds bilaterally, no rales/wheezes Heart- normal rate, regular rhythm; no murmurs Pacemaker site-dressing in place, no bleeding/discharge/hematoma Abdomen- normal bowel sounds, nondistended, soft, nontender Extremities- no pretibial edema, no calf tenderness Positive localized tenderness on the posterior trapezius area of the left shoulder Neuro- alert, oriented x 3; no gross focal neurologic deficits Skin- warm & dry Results & Data Results & Data ([facility]) Vital Signs (Past 12 Hours) Vital Signs Temp Pulse Resp BP Pulse Ox 09/03/21 08:00 37.0 C 72 20 160/69 H 97 09/03/21 03:16 36.8 C 69 19 171/78 H 93 all noted and reviewed including below (1) Chest pain Chest pain type: unspecified Qualified Code(s): R07.9 - Chest pain, unspecified
[2021-09-03 11:43] VITALS: BP 158/70; PULSE 76; TEMP 97.7
--- NOTE | 2021-09-03 12:22 | Discharge Summary ---
Date of Service September 03, 2021 Admission HPI Per Admitting Provider History obtained from patient and records. Medical history is significant for chronic diastolic HF (EF 50-54%, TTE 2020), valvular heart disease ( status post TAVR, paravalvular aortic valve prosthesis regurgitation, moderate MS/TR, mild MR), CAD status post stenting, PVD status post surgery, PAF on Coumadin, hypertension, hyperlipidemia, pulmonary hypertension/asthma /COPD/RLD as per records, DM2 on oral medications, hypothyroidism, chronic anemia (baseline hemoglobin 10 ), history laryngospasm as per records, mood disorder. Last confinement September 2017 for pneumonia. Possible aspiration pneumonitis o n CTA. No overt signs on speech eval as per documentation. Last week, patient noted cough symptoms productive of clear to yellowish sputum after choking on her saliva. Some wheezing at home with runny nose. No known recent COVID-19 contacts. Patient has completed COVID-19 vaccination. Patient seen at PCPs office 5 days ago. Chest x-ray negative for pneumonia. Patient prescribed cefdinir and prednisone course for possible sinusitis. Albuterol inhaler prescribed for wheezing. A few days after taking medication, patient noted palpitations with substernal discomfort going to her neck similar to heart attack episode in the past. Cough not really improved as per patient. No fluid retention or weight gain as per patient. Compliant with cardiac medications. Patient stopped albuterol and prednisone medications following her daughter's advice. Patient consulted ER for worsening symptoms. Recurrent A. fib noted at the ER. IV Lasix administered at the ER. MEDICAL HISTORY: As above. SURGERIES: Knee surgery, hip surgery, carpal tunnel surgery, back surgery, cataract surgery, TAVR, thromboendarterectomy, BOAZ/BSO FAMILY HISTORY: There is a family history of heart disease and diabetes. PERSONAL AND SOCIAL HISTORY: Nonsmoker, no chronic intake of alcohol, retired [employer] employee. Admission Exam (Per Admitting) Constitutional GENERAL: Comfortable, pleasant, looks younger than stated age, obese, no respiratory distress SKIN: Pallor, warm HEENT: Bespectacled, pale palpebral conjunctivae, no ptosis, moist buccal mucosa NECK : Supple, no tenderness CHEST : Decreased breath sounds with occasional expiratory wheezes, no tenderness HEART : Irregular, systolic murmur ABDOMEN: Some distention, nontender EXTREMITIES : Minimal LE swelling, no LE tenderness, no other conspicuous deformities noted NEUROLOGIC : Coherent, no facial asymmetry, no other gross focality Discharge Data Consultations 08/29/21 05:34 ED Decision to Admit Stat 08/29/21 08:27 Consult Cardiology Routine 08/29/21 10:02 Consult Cardiology Routine 08/29/21 12:48 Consult Pulmonology Routine Procedures Performed Operation Date: 09/01/21 08:00 Actual Procedures p Pacer with A/V Leads (Dual) - Alesia Baxter DO p AV Node Ablation - Alesia Baxter DO s Venogram, Unilateral - Alesia Baxter DO s Bundle of his Recording - Alesia Baxter DO s Ultrasound Vascular Access - Alesia Baxter DO CT chest diagnostic wo con CT DOSE: 251.98 mGy.cm HISTORY: Atypical chest pain. r/o PNA TECHNIQUE: Multiaxial CT images of the chest were performed without contrast. A dose lowering technique was utilized adhering to the principles of ALARA. COMPARISON: Chest CT 02/27/2021. FINDINGS: Multiple old, healed right-sided rib fractures. No acute fractures identified within the chest. Limited views the upper abdomen demonstrate a normal liver, spleen, and adrenal glands. Normal esophagus. Mild calcified plaque within the normal caliber thoracic aorta. An aortic valve prosthesis is noted. Dense coronary artery calcifications are present. No mediastinal or hilar lymphadenopathy. Dense mitral anus calcifications. The heart is mildly enlarged. No pleural or pericardial effusions. No pneumothorax. The central airways are patent. A stable 2 mm nodule within the left lung apex on image 45. This is of doubtful clinical significance given the patient's age. A few small bibasilar linear densities consistent with subsegmental atelectasis are scarring. There is new small focal peripheral density within the base of the right lower lobe in image 191. This measures 1.7 cm and is adjacent to an old, healed rib fracture. Therefore, this could represent an area of scarring rather than a small focus of inflammatory/infectious change. However, [address] follow-up recommended to ensure stability/resolution. IMPRESSION: 1. There is new small focal peripheral density within the base of the right lower lobe which measures 1.7 cm and is adjacent to an old, healed rib fracture. Therefore, this could represent an area of scarring rather than a small focus of inflammatory/infectious change. However, [address] follow-up recommended to ensure stability/resolution. 2. Old, healed right-sided rib fractures. Interval resolution of the right-sided hemothorax. 3. Mild cardiomegaly, unchanged. 4. A stable 2 mm nodule within the left lung apex ACT 112: Positive. There are findings on this exam that require communication between the performing entity and the patient following Patient Test Result Information Act ([place] Act 112) guidelines. Electronically signed by: Axel Patel M.D. 08/30/2021 6:05 PM Hospital Course (1) Chest pain: (2) Palpitation: (3) Aspiration pneumonia: (4) Atrial fibrillation with RVR: per Dr. 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 Of note, patient was admitted September 2017 for pneumonia, likely aspiration pneumonitis and CT, no overt signs and a speech eval as per documentation. 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 #. 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 Pt has h/o angina every time she has an episode of a fib. Admitting troponin x3 negative Admitting EKG a flutter with variable AV block, rate of 114. ST depression in lead II, ?Elevation in V1 Follow-up EKG: NSR, 75 bpm, old inferior infarct Admitting CXR: Cardiomegaly with no acute cardiopulmonary abnormality. Likely triggered by aspiration pneumonitis. 09/01/21 s/p Dual chamber ppm and AVN ablation Amiodarone discontinued Coumadin restarted Tramadol as needed for posterior trapezius pain, also advised warm compress on the area, gentle exercises continue to monitor Cleared for discharge as per cardiology service Pacemaker check and wound check next week per cardiology service #. Likely aspiration pneumonitis History of laryngospasm, patient reports choking on saliva/food in the recent past History of concern for aspiration pneumonitis in her previous confinement for pneumonia. Patient reporting cough with yellow sputum. Patient feels better currently. Patient boosted against Covid, no history of Covid. Started on Unasyn 08/29/2021, speech eval --> appreciate recommendations Pulm evaluated the patient: Since the procalcitonin was negative, antibiotic discontinued. For questionable vocal cord issues---> recommends nonurgent outpatient spirometry. Continue to monitor off antibiotics. 09/02/21 afebrile no changes with breathing reports dry cough is improving on fluticasone, singulair will add Jamila at [facility] Tessalon Perles as needed for cough ff up with PCP next week #. Chest pain Chest pain associated with palpitation, radiating to jaw was the reason for presentation likely from A fib resolved # Abnormal CT chest findings 1. There is new small focal peripheral density within the base of the right lower lobe which measures 1.7 cm and is adjacent to an old, healed rib fracture. Therefore, this could represent an area of scarring rather than a small focus of inflammatory/infectious change. However, [address] follow-up recommended to ensure stability/resolution. 4. A stable 2 mm nodule within the left lung apex Please refer to full report in the Ordered Studies section above Further work up, management, and ff up as outpatient #. Other chronic medical conditions: CAD, CHF, PVD status post surgery, HTN, HLD, DM2 CAD status post stent, 2020 TTE with EF of 50 to 54%, patient euvolemic to dry at presentation. ISS Disposition d/c home ff up with PCP in 1 week pacemaker check at cardiology clinic next week plan of care discussed with patient in detail and at length all questions answered she is understanding, agreeable, comfortable with the plan of care
[2021-09-03 13:46] VITALS: O2SAT 92
[2021-09-03] MEDS: BENZONATATE 100 MG CAPSULE PO PRN (13:53)
--- NOTE | 2021-09-07 17:10 | Operative Report (OR) ---
DATE OF PROCEDURE: 09/01/2021 PREOPERATIVE DIAGNOSES: Paroxysmal atrial fibrillation with rapid ventricular response, tachybrady s yndrome. POSTOPERATIVE DIAGNOSES: Paroxysmal atrial fibrillation with rapid ventricular response, tachybrady syndrome. PROCEDURE: Dual-chamber rate responsive permanent pacemaker under fluoroscopic guidance along with i ntracardiac electrogram His bundle recordings and peripheral venogram followed then by an AV chintan ab lation, ultrasound guidance venous access. SURGEON: Alesia Baxter DO. BUTTON INSPECTOR: None. ANESTHESIA: Monitored conscious sedation administered under my supervision by Sujatha Nixon. Start t alexia 8:18, end time 10:52. A total of 8 mg of Versed and 200 mcg of fentanyl. INTRAVENOUS FLUIDS: 75 mL. ANTIBIOTICS: 1 g of Ancef. CONTRAST: 20 mL. BLOOD LOSS: 30 mL. URINE OUTPUT: Not applicable. SPECIMENS: None. FINDINGS: See below. DRAINS: None. INDICATIONS: This is an 81-year-old female with a past medical history for paroxysmal atrial fibrill ation with rapid ventricular response where she quite often gets angina. She is on Coumadin and AV n odal blockers. Coronary artery disease, severe. She had a history of an AL where she got a proximal LAD stent in 04/2017. Then, a mid LAD stent in 12/2018. In 11/2020, during an acute non-STEMI, she h ad a complication with left main dissection and requiring a balloon pump. Other past medical history of hypertension, hyperlipidemia, aortic stenosis, status post TAVR in 02/2019, COPD, carotid artery stenosis, status post left carotid endarterectomy in 05/2013 and right in 06/2016, diabetes, gastroes ophageal reflux disease, hypothyroidism, restless legs syndrome and history of falls. She was admitt ed to [facility] secondary to angina secondary to atrial fibrillation with rapid ve ntricular response. She was recommended a pacemaker followed by an AV node ablation prior to dischar ge since we were unable to completely control her atrial fibrillation and she gets severe angina with the episodes given her significant coronary artery disease. CONSENT: Consent was obtained prior to the patient going into electrophysiology lab. The patient wa s explained of the risks, benefits, and alternatives to the procedure. Risks include, but not limite d to, sudden cardiac , cardiac arrhythmias, cerebrovascular accident, myocardial infarction, inj ury to the blood vessels, chamber of the heart and lung, bleeding and infection. The patient underst ood these risks and agreed to the procedure as planned. Informed consent was obtained. DESCRIPTION OF PROCEDURE: The patient was brought into electrophysiology lab in a fasting state. e was connected to continuous cardiac monitoring. A time-out was performed to ensure the patient's i dentity and the procedure correctly. She was prepped and draped over the left infraclavicular space in normal surgical standard fashion. Monitored conscious sedation was given throughout the procedure for patient's comfort level. [place] precautions were maintained throughout the procedure. 10 mL of 1% lidocaine-bupivacaine mixture were given in the left deltopectoral groove. An incision w as made in the left deltopectoral groove. Blunt dissection was performed down to the pectoralis musc le, then a pacemaker pocket was created using blunt dissection over the pectoralis muscle within the pectoralis fascia. Then, a peripheral venogram was performed to identify the axillary vein. Venous axillary access was obtained through a needlestick without any problems. A guidewire was inserted wi thout any resistance. A 7-Marshallese sheath was inserted over the guidewire without any resistance. The dilator was removed and a second guidewire was inserted through the sheath to allow for retained tigist ous access. Sheath was removed, flushed and reinserted over one of the dilators, then reinserted ove r one of the guidewires. The guidewire and dilator removed. Then, the His C315 sheath was advanced over a Glidewire into the right ventricle. The Glidewire and d ilator removed. Then, the pacing lead was advanced through the His C315 sheath. Then, with the fluo roscopy camera in HAN 10, intracardiac electrogram His bundle recordings were performed, see below fo r results. Once I found where the His was, I moved the fluoroscopy screen to HAN 30 and marked where the His was on my screens and then came down about 2 cm from this in a line that would extend out to the apex to panchito where I kind of wanted the left bundle positioned and then came down and started po sitioning the catheter and the lead in this area, came on pacing, had a nice W pattern, so I came in to DIDI 30 to start trying to screw the lead into the septum giving clockwise turns, pausing every onc e in a while to see how my morphology changed. Ultimately, I did reposition it one time, but we did find a nice spot that developed a nice R prime in my V1 and I gave contrast to see how I was well int o the septum. I then slit the His C315 sheath under fluoroscopic guidance, leaving the 7-Marshallese falcon th in while I positioned the right atrial lead. Through the retained guidewire, the second 7-Marshallese sheath was inserted over the guidewire. The guid ewire and dilator removed. The right atrial lead was then advanced into right atrium and positioned into right atrial appendage under fluoroscopic guidance using a great preformed J. There was adequate pacing and sensing thresholds and no diaphragmatic stimulation with high output pacing. The 7-Frenc h sheath was peeled away and the lead was fixated to pectoralis muscle using 0 silk suture. A 7-Marshallese sheath around the left bundle lead was then peeled away and the lead was fixated to pector alvaro muscle using 0 silk suture. Then, the pocket was flushed with copious amounts of vancomycin and saline wash and inspected for hemostasis. A pursestring was placed around the venous puncture site just to prevent any further backbleeding using a 2-0 Vicryl. Then, the pacemaker was connected to th e leads making sure the pins were in appropriate position, passed set screws, and set screws were all tightened. Pulse generator was then placed in the antibiotic pouch followed then by being placed in the pocket, making sure the leads were lying flat beneath the device. The incision was closed in a 3-layer fashion with 2-0 Vicryl interrupted suture followed by 3-0 Vicryl interrupted suture, followe d by 4-0 Monocryl running stitch. Dermabond was applied followed by Telfa and Tegaderm dressing. The patient was undraped and then redraped over bilateral groins in normal surgical standard fashion to set up for the AV chintan ablation. Then, 1% lidocaine was given in the right femoral vein to give local anesthesia. Then, using the modified Seldinger technique under ultrasound guidance, the right femoral vein was accessed through a needle stick and a guidewire was inserted without any resistance. Then, a short 8-Marshallese sheath was advanced over the wire, and the guidewire and dilator removed. T hen, the 8 mm DF curved non-irrigated ablation catheter was advanced into the heart, the His bundle w as located and then radiofrequency ablation was started at 70 smith. I did a total of 6 minutes. Th e first 3 minutes, I was a little bit more proximal and my temperatures were not going that high, but as I went a little bit deeper and towards more the septum, the last 3 minutes, I had higher temperat ures in the 50s, but ultimately within the first 30 seconds of the first ablation, she had complete h eart block. We watched for 20 minutes and rechecked the device to see that she still had complete he art block and then the catheter was removed from the body and the sheath was pulled and manual compre ssion was used to establish hemostasis. EQUIPMENT: 1. The pulse generator is a [employer] XT DR CHERYL Shi [id number], serial number [id number]. 2. TYRX pouch, reference [id number], lot number [id number], expiration 05/08/2022. 3. Right atrial lead, Medtronic 5076-52 cm, serial number [id number]. 4. Left bundle lead, Medtronic 3830-69 cm, serial number [id number]. INTRAOPERATIVE TESTIN. Intracardiac electrogram His bundle recordings: AH 92 milliseconds, HV 60 milliseconds. 2. Right atrial lead, P waves 3.6 millivolts, impedance 735 ohms, threshold 1.5 volts at 0.5 millise conds. 3. Left bundle lead, R waves 3.9 millivolts, impedance 502 ohms, threshold 0.6 volts at 0.5 millisec onds. FINAL MEASUREMENTS THROUGH THE DEVICE. 1. Right atrial lead, P waves 2.6 millivolts, impedance 684 ohms, threshold 1 volt at 0.4 millisecon ds. 2. Left bundle lead, R waves 6.6 millivolts, impedance 646 ohms, threshold 0.5 volts at 0.4 millisec onds. FINAL PARAMETERS: DDD 60/130. Right atrial amplitude 3.5 volts, pulse width 0.4 milliseconds, sensi tivity 0.3 millivolts. Left bundle lead amplitude 5 volts, pulse width 0.4 milliseconds, sensitivity 2 millivolts. IMPRESSION: Successful dual chamber rate responsive permanent pacemaker under fluoroscopic guidance along with intracardiac electrogram His bundle recordings and peripheral venogram followed by an ultr asound-guided venous access and atrioventricular chintan ablation secondary to paroxysmal atrial fibril lation with rapid ventricular response causing significant angina and ST changes. PLAN: Monitor the patient overnight, 12-lead ECG, chest x-ray. She cannot lift the left elbow or le ft shoulder for 1 month. She cannot lift more than 10 pounds with the left arm for 2 weeks. She is to keep the dressing on and dry until her wound check next week. She is to try to wear a surgical br a as well to help with wound healing. AV chintan agents will be adjusted by her general cardiology and she can restart Coumadin, but absolutely no IV heparin, systemic heparin or Lovenox. Job ID: [id number]
== END 2021-09-03 14:29 | disposition home or self-care (01) | DRG 242 ==
LOC: EDINP 06:28 → SUATTDRO 06:28 → 2S 09:27
DX: J69.0 Pneumonitis due to inhalation of food and vomit; Z99.81 Dependence on supplemental oxygen; I11.0 Hypertensive heart disease with heart failure; E78.5 Hyperlipidemia, unspecified; E03.9 Hypothyroidism, unspecified; I49.5 Sick sinus syndrome; I25.2 Old myocardial infarction; Z79.01 Long term (current) use of anticoagulants; K21.9 Gastro-esophageal reflux disease without esophagitis; Z95.5 Presence of coronary angioplasty implant and graft; Z88.8 Allergy status to other drugs, medicaments and biological substances; E11.65 Type 2 diabetes mellitus with hyperglycemia; Z96.642 Presence of left artificial hip joint; I48.92 Unspecified atrial flutter; Z79.02 Long term (current) use of antithrombotics/antiplatelets; Z82.49 Family history of ischemic heart disease and other diseases of the circulatory system; D64.9 Anemia, unspecified; J44.9 Chronic obstructive pulmonary disease, unspecified; M54.2 Cervicalgia; Z96.653 Presence of artificial knee joint, bilateral; I08.1 Rheumatic disorders of both mitral and tricuspid valves; I27.20 Pulmonary hypertension, unspecified; Z79.84 Long term (current) use of oral hypoglycemic drugs; Z79.82 Long term (current) use of aspirin; Z95.2 Presence of prosthetic heart valve; G25.81 Restless legs syndrome; Y92.009 Unspecified place in unspecified non-institutional (private) residence as the place of occurrence of the external cause; I25.119 Atherosclerotic heart disease of native coronary artery with unspecified angina pectoris; Z83.3 Family history of diabetes mellitus; T38.0X5A Adverse effect of glucocorticoids and synthetic analogues, initial encounter; R09.82 Postnasal drip; I44.30 Unspecified atrioventricular block; I48.0 Paroxysmal atrial fibrillation; I50.32 Chronic diastolic (congestive) heart failure

== ENCOUNTER 2022-07-12 10:20 | Inpatient (IN) ==
[2022-07-12] MEDS ORDERED: ALBUT/IPRATROP 3MG/0.5MG NEB 3 ML VIAL INH STA (10:34)
--- NOTE | 2022-07-12 10:37 | Emergency Department Note ---
Impression & Plan Hypoxia ADMIT ED Provider Note HPI: The patient is a very pleasant 82-year-old female with history of coronary artery disease, status post multiple stents, history of atrial fibrillation on Coumadin, presents emergency department with a chief complaint of shortness of breath for the past 2 weeks. Patient states that she is also had a mild cough. Patient states that she has had intermittent chest discomfort mostly with exertion during this time. On arrival here to the ED the patient is hemodynamically stable, she is saturating well on room air on my initial ass essment is otherwise in no acute distress. ROS: -Cardio: Intermittent chest discomfort -Pulmonary: Shortness of breath x2-week, cough *10 point review systems was conducted and is otherwise negative unless stated above *Outpatient medications and allergy history reviewed PE: General: Alert HEENT: Normocephalic, trachea midline Eyes: Extraocular eye movement is intact, no scleral erythema Pulmonary: Clear to auscultation bilaterally, mild expiratory wheezing bilaterally and throughout Cardio: Regular rate and rhythm GI: Abdomen is soft, nontender : No suprapubic tenderness MSK: No evidence of trauma or malformation of the extremities, no edema Skin: No evidence of rash Neuro: Alert, no focal deficits Psychiatric: Cooperative patient monitor: - An order was placed for continuous cardiac monitoring - Patient was noted to be in paced rhythm with a rate of 85 EKG: Rate: 87 Rhythm: Atrial sensed ventricular paced rhythm Intervals: UT interval 184 ms, QRS 110 ms, QTC [address] changes: No ST elevation Time: 1057 Interventions provided in ED: -DuoNeb breathing treatment, IV Lasix Medical Decision Making: Patient presented to the emergency department with shortness of breath, states that her symptoms are worse with exertion. On arrival here to the ED the arturo ent was initially saturating well on room air but did have desaturation to 88% was placed on nasal cannula oxygen. Chest x-ray shows concern for pulmonary edema, patient's BNP is elevated, high-sensitivity troponin level is mildly elevated in the 20s. Patient denies any active chest pain. EKG shows a paced rhythm without any ischemic changes. Patient's venous blood gas shows slight acidosis with pH of 7.33, CO2 is slightly elevated at 57, patient is improved following DuoNeb breathing treatm ent and her wheezing is improved in my reassessment. I suspect there is likely an element of COPD but also fluid overload with pulmonary edema on chest x-ray and elevated BNP, patient was therefore given a dose of IV Lasix. At this time patient states that she is uncomfortable going home, given her exertional dyspnea, history of CAD, and oxygen requirement here in the ED I do feel that she is fit for admission. Case was discussed with the on-call midlevel provider for [facility], Caterina Brand, and the patient was admitted in improved condition for further management * CRITICAL CARE TIME: (41) minutes -Stabilization of hypoxia with oxygen saturations less than 90% on room air requiring supplemental oxygen for improvement, time spent at the bedside, inte rpretation of diagnostic studies, discussion with other healthcare providers and arrangement of admission. Diagnosis: 1. Hypoxia, acute 2. Pulmonary edema, acute 3. Elevated BNP 4. Elevated high-sensitivity troponin level 5. Bronchospasm, mild Disposition: Admission Thaddeus Zamudio DO Emergency Medicine Past Med/Surg History Medical History Cardiac murmur no longer since heart valve surgery 02/2019 Chronic back pain Diabetes mellitus, type 2 GERD (gastroesophageal reflux disease) Glaucoma Hyperlipidemia Hypertension Hypothyroidism Hypoxia, sleep related uses oxygen at hs 2.5 Laryngeal spasm On anticoagulant therapy on plavix daily On home oxygen therapy 2.5 LITER AT HS Osteoarthritis Restless leg syndrome Surgical History History of abdominal surgery for bowel obstruction History of aortic valve replacement 02/26/19 @ [facility] [place]--follows with Dr. Arredondo History of appendectomy History of cardiac cath x4 with a total of 4 stents--last--12/2018 @ [facility] [place] x1 DRUG ELUTING STENT History of colonoscopy History of esophagogastroduodenoscopy (EGD) History of heart artery stent a total of 4 stents--last--12/2018 @ [facility] [place] x1 DRUG ELUTING STENT History of hip surgery left 2 screws placed after total hip replacement History of lumbar laminectomy for spinal cord decompression x2 History of right cataract surgery History of tonsillectomy History of tooth extraction all teeth removed History of total hysterectomy with bilateral salpingo-oophorectomy (BSO) History of total left hip replacement History of total left knee replacement (TKR) History of total right knee replacement (TKR) Status post glaucoma surgery right eye Status post trigger finger release left hand Family History Mother Diabetes Osteoporosis Heart disease Grandmother (Maternal) Diabetes Father Heart disease Other Asthma No family history of adverse response to anesthesia Social History Smoking Status: Never smoker Tobacco Type: Cigarettes Second Hand Exposure: Yes ( A CHILD); Hx Alcohol Use: No Hx Substance Use: No Preferred Language: Irish Communication Ability: Effective Student Finance Advisor Required: No Beliefs That Will Affect Care: None marital status: Current Living Situation: Spouse Current Living Situation Comment: Lives with Feels Safe at Home: Yes Assistive Devices: Brace/Splint/Immobilizer and Glasses Allergies Allergies Allergy/AdvReac Type Severity Reaction Status Date / Time empagliflozin Allergy Intermediate BLOOD IN Verified 08/29/21 02:28 [From Jardiance] URINE, BLADDER INFECTION carbamazepine Allergy Mild RASH Verified 08/29/21 02:28 oxaprozin Allergy Mild RASH/HIVES Verified 08/29/21 02:28 valproic acid Allergy Mild HEAD-TOE Verified 08/29/21 02:28 RASH Home Meds Home Medications Medication Instructions Recorded Confirmed acetaminophen 500 mg tablet 1,000 mg PO Q6H PRN Pain 06/12/19 07/12/22 atorvastatin 80 mg tablet 80 mg PO HS 06/12/19 07/12/22 bimatoprost 0.01 % eye drops 1 drp OPB HS 06/12/19 07/12/22 (Lumigan) clopidogrel 75 mg tablet 75 mg PO QAM 06/12/19 07/12/22 fluticasone propionate 50 2 spray intranasal DAILY 06/12/19 07/12/22 mcg/actuation nasal spray,suspension (Flonase Allergy Relief) gabapentin 300 mg capsule See Rx Instructions .Route .COMPLEX 06/12/19 07/12/22 lactobacillus combination no.4 3 3,000 mmu cells PO QAM 06/12/19 07/12/22 billion cell capsule (Probiotic) levothyroxine 25 mcg tablet 25 mcg PO DAILYBB 06/12/19 07/12/22 multivitamin 1 tab PO QAM 06/12/19 07/12/22 nitroglycerin 0.4 mg sublingual 0.4 mg sublingual DIRECTED PRN 06/12/19 07/12/22 tablet Angina omeprazole 20 mg tablet,delayed 20 mg PO DAILY 06/12/19 07/12/22 release ropinirole 0.25 mg tablet 0.25 mg PO HS 06/12/19 07/12/22 metformin 500 mg tablet 500 mg PO BIDM 07/13/20 07/12/22 cyanocobalamin (vitamin B-12) 1,000 mcg PO QAM 11/11/20 07/12/22 1,000 mcg tablet docusate sodium 100 mg tablet 100 mg PO BID PRN Constipation 11/11/20 07/12/22 (Stool Softener) magnesium oxide 400 mg PO DAILY 11/11/20 07/12/22 netarsudil 0.02 % eye drops 1 drp OPB HS 11/11/20 07/12/22 (Rhopressa) evolocumab 140 mg/mL subcutaneous 140 mg subcut .Q14 DAYS 02/27/21 07/12/22 pen injector (Repatha SureClick) furosemide 20 mg tablet (Lasix) 20 mg PO .Q1-2 X WEEK PRN Fluid 02/27/21 07/12/22 Retention glipizide 5 mg tablet 5 - 10 mg PO DAILY 02/27/21 07/12/22 isosorbide mononitrate 60 mg 60 mg PO DAILY 02/27/21 07/12/22 tablet,extended release 24 hr warfarin 5 mg tablet See Rx Instructions .Route .COMPLEX 02/27/21 07/12/22 Cranberry Caps 360 mg PO DAILY 08/29/21 07/12/22 albuterol sulfate 90 mcg/actuation 2 puff inhalation Q4 PRN Wheezing 08/29/21 07/12/22 aerosol inhaler diphenhydramine 25 2 tab PO HS PRN Pain 08/29/21 07/12/22 mg-acetaminophen 500 mg tablet (Tylenol PM Extra Strength) hydralazine 10 mg tablet 10 mg PO BID 08/29/21 07/12/22 hydrocortisone 2.5 % topical cream 1 applic topical BID 08/29/21 07/12/22 montelukast 10 mg tablet 10 mg PO DAILY 08/29/21 07/12/22 phenazopyridine 100 mg tablet 100 mg PO TID PRN .UTI 08/29/21 07/12/22 (Pyridium) Previous Rx's Medication Instructions Recorded benzonatate 100 mg capsule 100 mg PO TID PRN cough #20 caps 09/03/21 fexofenadine 180 mg tablet 180 mg PO DAILY #14 tabs 09/03/21 (Jamila Allergy) metoprolol succinate 25 mg 75 mg PO BID 30 days #180 tabs 09/03/21 tablet,extended release 24 hr tramadol 50 mg tablet 50 mg PO Q6H PRN moderate to 09/03/21 severe pain #14 tabs Results & Data (ED) Vital Signs Vital Signs - 24 hr 07/12/22 10:22 07/12/22 11:01 07/12/22 11:01 Temperature 36.4 C L Temperature Source Temporal Artery Scan Pulse Rate 88 Pulse Rate [Apical] Pulse Rhythm Respiratory Rate 24 Respiratory Effort / Characteristics Non-Labored Spontaneous Respiratory Depth Shallow Respiratory Pattern Regular Blood Pressure 150/81 H Blood Pressure [Left Arm] Blood Pressure Mean 104 Blood Pressure Mean [Left Arm] Pulse Oximetry 93 91 Oxygen Delivery Method Room Air Room Air Oxygen Flow Rate Sepsis Recent Fever Within 48 Hours No Sepsis New/Unexplained Change in Mental Status N/A Sepsis Action Taken by Nursing No Action Required 07/12/22 11:06 07/12/22 11:26 07/12/22 11:29 Temperature Temperature Source Pulse Rate 84 Pulse Rate [Apical] 85 Pulse Rhythm Regular Respiratory Rate 18 18 Respiratory Effort / Characteristics Respiratory Depth Normal Respiratory Pattern Blood Pressure Blood Pressure [Left Arm] 149/115 H Blood Pressure Mean Blood Pressure Mean [Left Arm] 126 Pulse Oximetry 90 88 L 96 Oxygen Delivery Method Room Air Room Air Nasal Cannula Oxygen Flow Rate 2 Sepsis Recent Fever Within 48 Hours Sepsis New/Unexplained Change in Mental Status Sepsis Action Taken by Nursing Laboratory Data Result diagrams: 07/12/22 10:52 07/12/22 10:52 Lab Results 07/12/22 07/12/22 07/12/22 Range/Units 10:52 10:52 10:52 WBC 7.24 (4.8-10.8) K/ul RBC 3.42 L (3.93-5.22) M/uL Hgb 10.9 L (12.0-16.0) g/dl Hct 33.7 L (34.1-44.9) % MCV 98.5 (80.0-100.0) fL MCH 31.9 (25.0-34.0) pg MCHC 32.3 (32.0-36.0) g/dL RDW Std Deviation 53.5 H (36.4-46.3) fL RDW Coeff of Omid 14.9 H (11.5-14.5) % Plt Count 230 (130-400) K/uL MPV 9.5 (9.4-12.3) fL Immature Gran % (Auto) 0.6 % Neut % (Auto) 74.9 % Lymph % (Auto) 16.3 % [place] % (Auto) 7.3 % Eos % (Auto) 0.8 % Baso % (Auto) 0.1 % Neut # (Auto) 5.42 (1.4-6.5) K/uL Lymph # (Auto) 1.18 L (1.2-3.4) K/uL [place] # (Auto) 0.53 (0.24-0.82) K/uL Eos # (Auto) 0.06 (0-0.50) K/uL Baso # (Auto) 0.01 (0-0.2) K/uL Immature Gran # (Auto) 0.04 H (0.00-0.02) K/uL PT 38.5 H (9.0-12.0) Seconds INR 3.9 H (0.9-1.1) VBG pH (7.36-7.41) VBG pCO2 (38-50) mmHg VBG pO2 mmHg VBG HCO3 mmol/L VBG O2 Saturation % VBG Base Excess mEq/L Sodium (136-145) mmol/L Potassium (3.5-5.1) mmol/L Chloride (98-107) mmol/L Carbon Dioxide (21-32) mmol/L Anion Gap (3-11) BUN (6-23) mg/dl Creatinine (0.6-1.2) mg/dl Est Cr Clr Drug Dosing Est GFR ( Amer) ml/min Est GFR (Non-Af Amer) ml/min BUN/Creatinine Ratio (10-20) Glucose (70-99(Fasting)) mg/dl Calcium (8.5-10.1) mg/dl Total Bilirubin (0.2-1.0) mg/dl AST (13-39) U/L ALT (7-52) U/L Alkaline Phosphatase (34-104) U/L Troponin I High Sens (0-14) pg/ml B-Natriuretic Peptide 1936 H (0-100) pg/ml Total Protein (6.0-8.3) gm/dl Albumin (3.4-5.0) gm/dl Globulin (2.5-4.0) gm/dl Albumin/Globulin Ratio (0.9-2) SARS-CoV-2 (PCR) (Negative) Influenza Type A (PCR) (Neg) Influenza Type B (PCR) (Neg) RSV (RT-PCR) (Neg) 07/12/22 07/12/22 07/12/22 Range/Units 10:52 10:52 12:10 WBC (4.8-10.8) K/ul RBC (3.93-5.22) M/uL Hgb (12.0-16.0) g/dl Hct (34.1-44.9) % MCV (80.0-100.0) fL MCH (25.0-34.0) pg MCHC (32.0-36.0) g/dL RDW Std Deviation (36.4-46.3) fL RDW Coeff of Omid (11.5-14.5) % Plt Count (130-400) K/uL MPV (9.4-12.3) fL Immature Gran % (Auto) % Neut % (Auto) % Lymph % (Auto) % [place] % (Auto) % Eos % (Auto) % Baso % (Auto) % Neut # (Auto) (1.4-6.5) K/uL Lymph # (Auto) (1.2-3.4) K/uL [place] # (Auto) (0.24-0.82) K/uL Eos # (Auto) (0-0.50) K/uL Baso # (Auto) (0-0.2) K/uL Immature Gran # (Auto) (0.00-0.02) K/uL PT (9.0-12.0) Seconds INR (0.9-1.1) VBG pH 7.33 L (7.36-7.41) VBG pCO2 57 H (38-50) mmHg VBG pO2 20 mmHg VBG HCO3 30 mmol/L VBG O2 Saturation < 60.0 % VBG Base Excess 2.8 mEq/L Sodium 142 (136-145) mmol/L Potassium 4.6 (3.5-5.1) mmol/L Chloride 107 (98-107) mmol/L Carbon Dioxide 29 (21-32) mmol/L Anion Gap 6 (3-11) BUN 20 (6-23) mg/dl Creatinine 0.78 (0.6-1.2) mg/dl Est Cr Clr Drug Dosing Not Reportable Est GFR ( Amer) 82.1 ml/min Est GFR (Non-Af Amer) 70.8 ml/min BUN/Creatinine Ratio 25.6 H (10-20) Glucose 238 H (70-99(Fasting)) mg/dl Calcium 8.9 (8.5-10.1) mg/dl Total Bilirubin 0.4 (0.2-1.0) mg/dl AST 17 (13-39) U/L ALT 29 (7-52) U/L Alkaline Phosphatase 44 (34-104) U/L Troponin I High Sens 20.9 H 25.6 H (0-14) pg/ml B-Natriuretic Peptide (0-100) pg/ml Total Protein 6.3 (6.0-8.3) gm/dl Albumin 3.9 (3.4-5.0) gm/dl Globulin 2.4 L (2.5-4.0) gm/dl Albumin/Globulin Ratio 1.6 (0.9-2) SARS-CoV-2 (PCR) (Negative) Influenza Type A (PCR) (Neg) Influenza Type B (PCR) (Neg) RSV (RT-PCR) (Neg) 07/12/22 Range/Units 12:10 WBC (4.8-10.8) K/ul RBC (3.93-5.22) M/uL Hgb (12.0-16.0) g/dl Hct (34.1-44.9) % MCV (80.0-100.0) fL MCH (25.0-34.0) pg MCHC (32.0-36.0) g/dL RDW Std Deviation (36.4-46.3) fL RDW Coeff of Omid (11.5-14.5) % Plt Count (130-400) K/uL MPV (9.4-12.3) fL Immature Gran % (Auto) % Neut % (Auto) % Lymph % (Auto) % [place] % (Auto) % Eos % (Auto) % Baso % (Auto) % Neut # (Auto) (1.4-6.5) K/uL Lymph # (Auto) (1.2-3.4) K/uL [place] # (Auto) (0.24-0.82) K/uL Eos # (Auto) (0-0.50) K/uL Baso # (Auto) (0-0.2) K/uL Immature Gran # (Auto) (0.00-0.02) K/uL PT (9.0-12.0) Seconds INR (0.9-1.1) VBG pH (7.36-7.41) VBG pCO2 (38-50) mmHg VBG pO2 mmHg VBG HCO3 mmol/L VBG O2 Saturation % VBG Base Excess mEq/L Sodium (136-145) mmol/L Potassium (3.5-5.1) mmol/L Chloride (98-107) mmol/L Carbon Dioxide (21-32) mmol/L Anion Gap (3-11) BUN (6-23) mg/dl Creatinine (0.6-1.2) mg/dl Est Cr Clr Drug Dosing Est GFR ( Amer) ml/min Est GFR (Non-Af Amer) ml/min BUN/Creatinine Ratio (10-20) Glucose (70-99(Fasting)) mg/dl Calcium (8.5-10.1) mg/dl Total Bilirubin (0.2-1.0) mg/dl AST (13-39) U/L ALT (7-52) U/L Alkaline Phosphatase (34-104) U/L Troponin I High Sens (0-14) pg/ml B-Natriuretic Peptide (0-100) pg/ml Total Protein (6.0-8.3) gm/dl Albumin (3.4-5.0) gm/dl Globulin (2.5-4.0) gm/dl Albumin/Globulin Ratio (0.9-2) SARS-CoV-2 (PCR) NEGATIVE (Negative) Influenza Type A (PCR) Negative (Neg) Influenza Type B (PCR) Negative (Neg) RSV (RT-PCR) Negative (Neg) Administered Medications Discontinued Medications Albuterol (Albut/Ipratrop 3mg/0.5mg Neb 3 Ml Vial) 3 ml INH NOW STA Stop: 07/12/22 10:35 Last Admin: 07/12/22 11:05 Dose: 3 ml Documented By: HERNAN Furosemide (Furosemide Inj 20 Mg/2 Ml Vial) 20 mg IV ONE ONE Stop: 07/12/22 11:54 Last Admin: 07/12/22 12:14 Dose: 20 mg Documented By: HERNAN Methylprednisolone (Methylprednisolone 125 Mg/2 Ml Vial) 125 mg IV NOW STA Stop: 07/12/22 12:09 Last Admin: 07/12/22 12:24 Dose: Not Given Documented By: HERNAN Imaging Data Radiologist's Impression: Chest X-Ray 07/12/22 10:35 XR chest 1V portable CLINICAL HISTORY: Dyspnea. COMPARISON STUDY: Chest CT August 30, 2021 and chest radiograph September 01, 2021. FINDINGS: Left subclavian pacer is in place. There is a prosthetic aortic valve. Extensive mitral annular calcification is noted. There is moderate cardiomegaly. Mild pulmonary edema is noted. Small left and trace right pleural effusions are noted. Associated left basilar opacity is present. IMPRESSION: 1. Mild pulmonary edema with small left and trace right pleural effusions and associated bibasilar opacities. 2. Cardiomegaly. ACT 112: Negative or not required by law. Electronically signed by: Jordy Domingo M.D. 07/12/2022 11:19 AM Discharge Plan Visit Data Chief Complaint: Shortness of Breath/Dyspnea Stated Complaint: SOB,COUGH, HEART ISSUES,NECK PAIN ED Provider: Thaddeus Zamudio Discharge Problem: Hypoxia Patient Disposition: Admitted As Inpatient Forms Stand Alone Forms: [facility] Prescriptions Prescriptions: No Action multivitamin Tablet 1 tab PO QAM atorvastatin 80 mg Tablet 80 mg PO HS clopidogrel 75 mg Tablet 75 mg PO QAM acetaminophen 500 mg Tablet 1,000 mg PO Q6H PRN (Reason: Pain) levothyroxine 25 mcg Tablet 25 mcg PO DAILYBB ropinirole 0.25 mg Tablet 0.25 mg PO HS Rx Instructions: TAKE AT HS WITH FOOD. nitroglycerin 0.4 mg Tablet, Sublingual 0.4 mg sublingual DIRECTED PRN (Reason: Angina) gabapentin 300 mg Capsule See Rx Instructions .ROUTE .COMPLEX Rx Instructions: 300 mg orally; TAKE 300 MG QAM, THEN 600 MG QPM. fluticasone propionate [Flonase Allergy Relief] 50 mcg/actuation [place],Suspension 2 spray INTRANASAL DAILY omeprazole 20 mg Tablet,Delayed Release (Dr/Ec) 20 mg PO DAILY Lumigan 0.01 % Drops 1 drp OPB HS Probiotic 3 billion cell Capsule 3,000 mmu cells PO QAM metformin 500 mg Tablet 500 mg PO BIDM cyanocobalamin (vitamin B-12) 1,000 mcg Tablet 1,000 mcg PO QAM docusate sodium [Stool Softener] 100 mg Tablet 100 mg PO BID PRN (Reason: Constipation) magnesium oxide 400 mg magnesium Capsule 400 mg PO DAILY Rhopressa 0.02 % Drops 1 drp OPB HS isosorbide mononitrate 60 mg Tablet Extended Release 24 Hr 60 mg PO DAILY warfarin 5 mg tablet See Rx Instructions .ROUTE .COMPLEX Rx Instructions: UD BY ANTICOAGULATION CLINIC. furosemide [Lasix] 20 mg Tablet 20 mg PO .Q1-2 X WEEK PRN (Reason: Fluid Retention) glipizide 5 mg tablet 5 - 10 mg PO DAILY Repatha SureClick 140 mg/mL pen injector 140 mg SUBCUT .Q14 DAYS hydralazine 10 mg tablet 10 mg PO BID phenazopyridine [Pyridium] 100 mg Tablet 100 mg PO TID PRN (Reason: .UTI) hydrocortisone 2.5 % cream 1 applic TOPICAL BID montelukast 10 mg tablet 10 mg PO DAILY albuterol sulfate 90 mcg/actuation HFA aerosol inhaler 2 puff INHALATION Q4 PRN (Reason: Wheezing) diphenhydramine-acetaminophen [Tylenol PM Extra Strength] 25-500 mg Tablet 2 tab PO HS PRN (Reason: Pain) Cranberry Caps 360 mg PO DAILY Rx Instructions: take two 180 mg caps tramadol 50 mg Tablet 50 mg PO Q6H PRN (Reason: moderate to severe pain) Qty: 14 0RF metoprolol succinate 25 mg Tablet Extended Release 24 Hr 75 mg PO BID 30 Days Qty: 180 2RF benzonatate 100 mg capsule 100 mg PO TID PRN (Reason: cough) Qty: 20 0RF fexofenadine [Jamila Allergy] 180 mg tablet 180 mg PO DAILY Qty: 14 0RF Referrals Referrals: Natalio Moseley MD [Primary Care Provider] -
[2022-07-12 11:04] LABS: Base Excess VBG 2.8 mEq/L; Basophils # (auto) 0.01 K/uL (0-0.2); Basophils % (auto) 0.1 %; Eosinophils # (auto) 0.06 K/uL (0-0.50); Eosinophils % (auto) 0.8 %; HCO3 VBG 30 mmol/L; Hematocrit (blood only) 33.7 % (34.1-44.9); Hemoglobin 10.9 g/dl (12.0-16.0); Immature Granulocytes # (auto) 0.04 K/uL (0.00-0.02); Immature Granulocytes % (auto) 0.6 %; Lymphocytes # (auto) 1.18 K/uL (1.2-3.4); Lymphocytes % (auto) 16.3 %; Mean Corpuscular Hemoglobin 31.9 pg (25.0-34.0); Mean Corpuscular Hgb Conc 32.3 g/dL (32.0-36.0); Mean Corpuscular Volume 98.5 fL (80.0-100.0); Mean Platelet Volume 9.5 fL (9.4-12.3); Monocytes # (auto) 0.53 K/uL (0.24-0.82); Monocytes % (auto) 7.3 %; Neutrophils # (auto) 5.42 K/uL (1.4-6.5); Neutrophils % (auto) 74.9 %; Oxygen Saturation VBG < 60.0 %; PCO2 VBG 57 mmHg (38-50); PO2 VBG 20 mmHg; Platelet Count 230 K/uL (130-400); RDW Coefficient of Variation 14.9 % (11.5-14.5); RDW Standard Deviation 53.5 fL (36.4-46.3); Red Blood Count 3.42 M/uL (3.93-5.22); White Blood Count 7.24 K/ul (4.8-10.8); pH VBG 7.33 (7.36-7.41)
--- NOTE | 2022-07-12 11:20 | XRay Report ---
XR chest 1V portable CLINICAL HISTORY: Dyspnea. COMPARISON STUDY: Chest CT August 30, 2021 and chest radiograph September 01, 2021. FINDINGS: Left subclavian pacer is in place. There is a prosthetic aortic valve. Extensive mitral tamara ular calcification is noted. There is moderate cardiomegaly. Mild pulmonary edema is noted. Small lef t and trace right pleural effusions are noted. Associated left basilar opacity is present. IMPRESSION: 1. Mild pulmonary edema with small left and trace right pleural effusions and associated bibasilar op acities. 2. Cardiomegaly. ACT 112: Negative or not required by law. Electronically signed by: Jordy Domingo M.D. 07/12/2022 11:19 AM
[2022-07-12 11:23] LABS: Alanine Aminotransferase 29 U/L (7-52); Albumin Globulin Ratio 1.6 (0.9-2); Albumin Level 3.9 gm/dl (3.4-5.0); Alkaline Phosphatase 44 U/L (34-104); Anion Gap 6 (3-11); Aspartate Aminotransferase 17 U/L (13-39); BUN Creatinine Ratio 25.6 (10-20); Bilirubin,Total 0.4 mg/dl (0.2-1.0); Blood Urea Nitrogen 20 mg/dl (6-23); Calcium 8.9 mg/dl (8.5-10.1); Carbon Dioxide 29 mmol/L (21-32); Chloride 107 mmol/L (98-107); Est GFR (African American) 82.1 ml/min; Est GFR (Non-African American) 70.8 ml/min; Globulin 2.4 gm/dl (2.5-4.0); Glucose 238 mg/dl (70-99(Fasting)); Potassium 4.6 mmol/L (3.5-5.1); Sodium 142 mmol/L (136-145); Total Protein 6.3 gm/dl (6.0-8.3)
[2022-07-12 11:29] LABS: Troponin I High Sensitivity 20.9 pg/ml (0-14)
[2022-07-12 11:31] LABS: INR 3.9 (0.9-1.1); Prothrombin Time 38.5 Seconds (9.0-12.0)
[2022-07-12] MEDS ORDERED: FUROSEMIDE INJ 20 MG/2 ML VIAL IV ONE (11:53)
[2022-07-12] MEDS ORDERED: methylPREDNISolone 125 MG/2 ML VIAL IV STA (12:08)
--- NOTE | 2022-07-12 12:32 | History & Physical Report ---
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 Hypoxia Initially saturating 88% on room air, now 96% on 2 L nasal cannula Only requires oxygen at night, 2 L of nasal cannula at bedtime at home Continue supplemental oxygen as needed during day, 2L NC HS Shortness of breath In setting of decompensated HF CXR with mild pulmonary edema with small left and trace right pleural effusions and associated bibasilar opacities and cardiomegaly Considering infectious pulm source but afebrile, no leukocytosis, COVID, flu and RSV negative. Procalcitonin pending H/o laryngospasms in the past, evaluation by speech for possible aspiration and recommended small meals. Continue aspiration precautions Decompensated HFpEF Worsening shortness of breath, anginal symptoms, edema over the past 2 weeks Last echo from January 2021 with preserved EF of 60% High-sensitivity troponin 25.6, BNP 1936 Given 20 mg IV Lasix in ED, considering additional dose this evening Daily weights, strict I&Os TTE ordered, routine cardiology consult Tachy tanner syndrome s/p PM placement Aug 2021 Recent adjustment in clinic Interrogation ordered Atrial fibrillation On coumadin with INR of 3.9 today Continue diltiazem, Toprol Hold afternoon Coumadin dose, check INR tomorrow CAD H/o stents x4 in 2019, class 3 angina pectoris with low level exertional tolerance Continue statin, plavix, beta deny, Imdur Carotid stenosis H/o bilateral endarterectomy DM II A1c 8.4 in AM, repeat tomorrow Hold home agents SSI while in-patient BSG AC HS Hypothyroidism Continue levothyroxine RLS Continue ropilerole DVT Ppx: coumadin Code status: FULL PCP: Lorelei Dispo: Admitted to PCU Patient seen in collaboration with Dr. Kothari. Please see addendum. History of Present Illness Chief Complaint: SOB Primary Care Provider: Natalio Moseley MD This is an 81 yo F with extensive PMH of HFpEF (January 2021 TTE EF 60%), aortic stenosis s/p TAVR, paravalvular aortic prosthesis regurgitation, tachy tanner syndrome s/p PM placement Aug 2021, CAD s/p stents, carotid stenosis s/p bilateral endarterectomies, PVD, PAF on coumadin, HTN, HLD, pulmonary, HTN, DM2, hypothyroidism, chronic anemia, history of laryngospasm and other medical problems as above who presents with progressive shortness of breath over the past 2 weeks. Started to feel poorly 2 weeks ago with increased work of breathing at rest and also worsened anginal symptoms requiring more sublingual nitro. Was able to see Thaddeus Cole PA-C in same-day apartment on June 30 and was normovolemic at that time. Diltiazem 120mg daily added to her regimen. Instructed to utilize Lasix up to 3 days/week as needed. Pacemaker was adjusted at that time. Since then, she continues to feel short of breath at rest and is noticed increased swelling in her feet as well as worsened abdominal distention. Taking medications as prescribed having last taken as needed Lasix 2 days ago. Denies any dietary changes such as increased salt. No known sick contacts, fever or chills. Cough is intermittent and dry. Has her "normal anginal symptoms" of discomfort in her upper chest and throat that she has been using nitro for as needed. Denies any discomfort at this time at rest but notices it with exertion. Denies any nausea, vomiting, abdominal pain, dysuria, diarrhea or constipation. Allergies Allergy/AdvReac Type Severity Reaction Status Date / Time empagliflozin Allergy Intermediate BLOOD IN Verified 08/29/21 02:28 [From Jardiance] URINE, BLADDER INFECTION carbamazepine Allergy Mild RASH Verified 08/29/21 02:28 oxaprozin Allergy Mild RASH/HIVES Verified 08/29/21 02:28 valproic acid Allergy Mild HEAD-TOE Verified 08/29/21 02:28 RASH Home Medications Medication Instructions Recorded Confirmed Type acetaminophen 500 mg tablet 1,000 mg PO Q6H PRN Pain 06/12/19 07/12/22 History atorvastatin 80 mg tablet 80 mg PO HS 06/12/19 07/12/22 History bimatoprost 0.01 % eye drops 1 drp OPB HS 06/12/19 07/12/22 History (Lumigan) clopidogrel 75 mg tablet 75 mg PO QAM 06/12/19 07/12/22 History fluticasone propionate 50 2 spray intranasal DAILY 06/12/19 07/12/22 History mcg/actuation nasal spray,suspension (Flonase Allergy Relief) gabapentin 300 mg capsule See Rx Instructions .Route .COMPLEX 06/12/19 07/12/22 History levothyroxine 25 mcg tablet 25 mcg PO DAILYBB 06/12/19 07/12/22 History multivitamin 1 tab PO QAM 06/12/19 07/12/22 History nitroglycerin 0.4 mg sublingual 0.4 mg sublingual DIRECTED PRN 06/12/19 07/12/22 History tablet Angina omeprazole 20 mg tablet,delayed 20 mg PO DAILY 06/12/19 07/12/22 History release ropinirole 0.25 mg tablet 0.25 mg PO HS 06/12/19 07/12/22 History metformin 500 mg tablet 500 mg PO BIDM 07/13/20 07/12/22 History cyanocobalamin (vitamin B-12) 1,000 mcg PO QAM 11/11/20 07/12/22 History 1,000 mcg tablet docusate sodium 100 mg tablet 100 mg PO BID PRN Constipation 11/11/20 07/12/22 History (Stool Softener) magnesium oxide 400 mg PO DAILY 11/11/20 07/12/22 History netarsudil 0.02 % eye drops 1 drp OPB HS 11/11/20 07/12/22 History (Rhopressa) evolocumab 140 mg/mL subcutaneous 140 mg subcut .Q14 DAYS 02/27/21 07/12/22 History pen injector (Repatha SureClick) furosemide 20 mg tablet (Lasix) 20 mg PO 3XWK PRN Fluid Retention 02/27/21 07/12/22 History glipizide 5 mg tablet 5 - 10 mg PO DAILY 02/27/21 07/12/22 History isosorbide mononitrate 60 mg 120 mg PO DAILY 02/27/21 07/12/22 History tablet,extended release 24 hr warfarin 5 mg tablet 5 mg PO DAILY@1600 02/27/21 07/12/22 History Cranberry Caps 360 mg PO DAILY 08/29/21 07/12/22 History albuterol sulfate 90 mcg/actuation 2 puff inhalation Q4 PRN Wheezing 08/29/21 07/12/22 History aerosol inhaler diphenhydramine 25 2 tab PO HS PRN Pain 08/29/21 07/12/22 History mg-acetaminophen 500 mg tablet (Tylenol PM Extra Strength) montelukast 10 mg tablet 10 mg PO DAILY 08/29/21 07/12/22 History tramadol 50 mg tablet 50 mg PO Q6H PRN moderate to 09/03/21 07/12/22 Rx severe pain #14 tabs diltiazem HCl 120 mg 120 mg PO DAILY 07/12/22 07/12/22 History capsule,extended release 24 hr iron,carbonyl 65 mg-vitamin C 125 1 tab PO DAILY 07/12/22 07/12/22 History mg tablet,delayed release (Vitron-C) metoprolol succinate 25 mg 100 mg PO BID 07/12/22 07/12/22 History tablet,extended release 24 hr Past Med/Surg History Medical History (Updated 07/12/22 @ 14:38 by Deb Urena PA-C) Cardiac murmur no longer since heart valve surgery 02/2019 Chronic back pain Diabetes mellitus, type 2 GERD (gastroesophageal reflux disease) Glaucoma History of transcatheter aortic valve replacement (TAVR) Hyperlipidemia Hypertension Hypothyroidism Hypoxia, sleep related uses oxygen at hs 2.5 Laryngeal spasm On anticoagulant therapy on plavix daily On home oxygen therapy 2.5 LITER AT HS Osteoarthritis Restless leg syndrome Tachy-tanner syndrome Surgical History (Updated 07/12/22 @ 14:31 by Deb Urena PA-C) History of abdominal surgery for bowel obstruction History of aortic valve replacement [place]19 [place] [facility] [place]follows with Dr. Arredondo History of appendectomy History of cardiac cath x4 with a total of 4 stents--last--12/2018 @ [facility] [place] DRUG ELUTING STENT History of colonoscopy History of esophagogastroduodenoscopy (EGD) History of heart artery stent a total of 4 stents--last--12/2018 @ [facility] [place] DRUG ELUTING STENT History of hip surgery left 2 screws placed after total hip replacement History of lumbar laminectomy for spinal cord decompression x2 History of right cataract surgery History of tonsillectomy History of tooth extraction all teeth removed History of total hysterectomy with bilateral salpingo-oophorectomy (BSO) History of total left hip replacement History of total left knee replacement (TKR) History of total right knee replacement (TKR) S/P placement of cardiac pacemaker Aug 2021 Status post glaucoma surgery right eye Status post trigger finger release left hand Family History Mother Diabetes Osteoporosis Heart disease Grandmother (Maternal) Diabetes Father Heart disease Other Asthma No family history of adverse response to anesthesia Social History Smoking Status: Never smoker Tobacco Type: Cigarettes Second Hand Exposure: No; Do You Dip or Chew Tobacco: No; Tobacco Cessation Education Requested by Patient: No Hx Alcohol Use: No Hx Substance Use: No Preferred Language: Kazakh Communication Ability: Effective Ladle Watcher Required: No Beliefs That Will Affect Care: None marital status: Current Living Situation: Alone Current Living Situation Comment: Lives with Other Information That Helps Us Care for You: No Feels Safe at Home: Yes Safety Concerns: Feels Safe At This Time Assistive Devices: None Review of Systems Review of Systems: At least ten systems reviewed and negative except as noted in the HPI. Physical Exam Physical Exam: General Appearance: WD/WN, vitals as above, NAD, sitting up in bed, pleasant, obese, some conversational dyspnea Head: normocephalic, atraumatic Eyes: normal inspection, PERRL, conjunctivae normal, anicteric sclerae ENT: external ear and nose normal, oropharynx normal Neck: normal visual inspection, trachea midline, no thyromegaly Respiratory: increased respiratory effort, bibasilar rales, expiratory wheezes. No accessory muscle use Cardiovascular: regular rate, rhythm, no murmur, normal peripheral pulses, 1+ BLE edema. Vessels: + JVD Chest: normal inspection of chest Abdomen/GI: normal bowel sounds, soft, nontender but distended, no hepat osplenomegaly Extremities/Musculoskeletal: no cyanosis or clubbing, extremities motor strength 5/5 Neurologic: PERRL, EOMI, accommodation nl, no face palsy, no dysarthria, CN's II-XI intact bilaterally and moves all extremities Psychiatric: A+Ox3, euthymic affect Skin: no rashes, normal color, warm/dry. Some open and healing wounds on BLE but no erythema or drainage noted Results & Data Results & Data ([facility]) Vital Signs (Past 12 Hours) Vital Signs Temp Pulse Pulse Resp BP BP Pulse Ox 07/12/22 11:29 96 07/12/22 11:26 85 18 149/115 H 88 L 07/12/22 11:06 84 18 90 07/12/22 11:01 91 07/12/22 10:22 36.4 C L 88 24 150/81 H 93 O2 Del Method O2 Flow Rate 07/12/22 11:29 Nasal Cannula 2 07/12/22 11:26 Room Air 07/12/22 11:06 Room Air 07/12/22 11:01 Room Air 07/12/22 10:22 Room Air Laboratory Results Short CBC 07/12/22 Range/Units 10:52 WBC 7.24 (4.8-10.8) K/ul Hgb 10.9 L (12.0-16.0) g/dl Hct 33.7 L (34.1-44.9) % Plt Count 230 (130-400) K/uL BMP 07/12/22 10:52 Sodium 142 Potassium 4.6 Chloride 107 Carbon Dioxide 29 BUN 20 Creatinine 0.78 Glucose 238 H Calcium 8.9 Liver Function 07/12/22 Range/Units 10:52 Total Bilirubin 0.4 (0.2-1.0) mg/dl AST 17 (13-39) U/L ALT 29 (7-52) U/L Alkaline Phosphatase 44 (34-104) U/L Albumin 3.9 (3.4-5.0) gm/dl Diagnostic Findings Chest X-Ray 07/12/22 10:35 XR chest 1V portable CLINICAL HISTORY: Dyspnea. COMPARISON STUDY: Chest CT August 30, 2021 and chest radiograph September 01, 2021. FINDINGS: Left subclavian pacer is in place. There is a prosthetic aortic valve. Extensive mitral annular calcification is noted. There is moderate cardiomegaly. Mild pulmonary edema is noted. Small left and trace right pleural effusions are noted. Associated left basilar opacity is present. IMPRESSION: 1. Mild pulmonary edema with small left and trace right pleural effusions and associated bibasilar opacities. 2. Cardiomegaly. ACT 112: Negative or not required by law. Electronically signed by: Jordy Domingo M.D. 07/12/2022 11:19 AM ECG Additional Comments: paced rhythm Code Status & VTE Plan VTE Prophylaxis Plan VTE Prophylaxis will be ordered: Yes Supervising Physician Co-Signing Physician Notes 82-year-old female with a history of aortic valve replacement, cardiac disease with stents, cardiac pacemaker placement August 2001 presents with acute shortness of breath that is known improved in the last couple of weeks. She is being admitted for presumed acute heart failure exacerbation. Since receiving Lasix and a breathing treatment in the ER she is feeling improved. She does report some dry coughing but otherwise has no respiratory symptoms. She denies any fevers or chills and procalcitonin is normal. Chest x-ray reveals mild pulmonary edema with some effusions but no evidence of shahida pneumonia. She describes a history of chronic angina with a tightness in her throat that is resolved with nitroglycerin. She currently denies any active chest pain. Lab work reveals an elevated BNP, normal white blood cell count, mild chronic anemia that is at her baseline. INR of 3.9 and patient is noted to be on Coumadin. There is no overt bleeding. BMP is normal aside from glucose of 238. Highly sensitive troponin is 20.9 with repeat of 25.6. Respiratory viral panel is negative. My physical exam she has clear lungs auscultation throughout and normal res piratory effort. Cardiac exam reveals S1/S2 heard with no evidence of murmurs and there is no peripheral edema present. There are scattered scratches on her lower extremities and a mottled appearance to her lower extremities that is chronic per daughter. Otherwise extremities are warm well perfused. Exam was otherwise unremarkable. Will continue treatment for acute decompensated heart failure with Lasix. She typically takes Lasix 20mg PO TIW as needed for edema, so is essentially naive to it. She has alot of output in the ER per her report, but this was not quantified or recorded. Since being on the floor just a couple of hours, she had 650cc output. Joyner in being placed now and will order another 20mg IV for the morning. Consult cardiology. Hold warfarin until INR less than 3.5. Continue glucose control with insulin and hold home oral antiglycemic's. Continue daily standing weights, salt restriction and strict I's and O's. Taye, DO
[2022-07-12 13:08] LABS: Influenza A virus by PCR Negative (Neg); Influenza B virus by PCR Negative (Neg); RSV by PCR Negative (Neg); SARS CoV2 RNA(COVID-19)Cepheid NEGATIVE (Negative)
[2022-07-12] MEDS ORDERED: ALBUTEROL HFA 8 GM INHALER INH PRN (15:25)
[2022-07-12] MEDS ORDERED: POLYETHYLENE (MIRALAX) 17 GM PACK PO PRN (15:25)
[2022-07-12] MEDS ORDERED: NON-FORMULARY MEDICATION (Evolocumab [Repatha Sureclick] 140 mg/mL pen injector) SQ SCH (15:25)
[2022-07-12] MEDS ORDERED: ONDANSETRON INJ 2 MG/ML 2 ML VIAL IV PRN (15:25)
[2022-07-12] MEDS ORDERED: NITROGLYCERIN SL 0.4 MG/TAB TAB SL PRN (15:25)
[2022-07-12] MEDS ORDERED: ACETAMINOPHEN 325 MG TAB PO PRN (15:25)
[2022-07-12] MEDS ORDERED: GLUCOSE 40% GEL 15 GM TUBE PO PRN (15:48)
[2022-07-12] MEDS ORDERED: DEXTROSE 50% 50 ML SYRINGE IV PRN (15:48)
[2022-07-12] MEDS ORDERED: GLUCOSE 10 TAB/TUBE PO PRN (15:48)
[2022-07-12] MEDS ORDERED: CARBOHYDRATES FOR HYPOGLYCEMIA PO PRN (15:48)
[2022-07-12] MEDS ORDERED: GLUCAGON FOR INJ 1 MG VIAL SQ PRN (15:48)
[2022-07-12] MEDS: INSULIN ASPART PER UNIT SC SCH ×2 (16:54→20:25)
--- NOTE | 2022-07-12 17:06 | Electrocardiogram Report ---
Test Reason : Blood Pressure : / mmHG Vent. Rate : 087 BPM Atrial Rate : 087 BPM P-R Int : 184 ms QRS Dur : 110 ms QT Int : 386 ms P-R-T Axes : 018 107 062 degrees QTc Int : 464 ms Atrial-sensed ventricular-paced rhythm Abnormal ECG When compared with ECG of 01-SEP-2021 13:02, Vent. rate has increased BY 17 BPM Confirmed by Jos Renner ([id number]) on 07/12/2022 5:06:05 PM Referred By: Confirmed By:Jos Renner
[2022-07-12] MEDS: GABAPENTIN 600 MG TAB PO SCH (20:28)
[2022-07-12] MEDS: rOPINIRole HCL 0.25 MG TABLET PO SCH (20:28)
[2022-07-12] MEDS: ATORVASTATIN 40 MG TAB PO SCH (20:30)
[2022-07-12] MEDS: METOPROLOL SUCC 50MG EXT REL TAB PO SCH (20:35)
[2022-07-13 00:09] LABS: Appearance Urine Clear (Clear); Bacteria Urine Automated 3+ (Negative); Bilirubin Urine Negative (Negative); Blood Urine Trace (Negative); Color Urine Yellow; Epithelial Cell Urine Auto >30 /lpf (0-5); Glucose Urine UA Negative (Negative); Ketones Urine Trace (Negative); Leukocyte Esterase Urine Negative (Negative); Nitrite Urine Negative (Negative); Protein Urine 2+ (Negative); Specific Gravity Urine 1.023 (1.000-1.030); Urobilinogen Urine Negative (Negative); pH Urine 5.5 (4.5-7.5)
[2022-07-13] MEDS: MELATONIN 3 MG TAB PO PRN ×2 (01:08→23:17)
[2022-07-13] MEDS: LEVOTHYROXINE SODIUM 25 MCG TABLET PO SCH (05:56)
[2022-07-13 06:44] LABS: Hemoglobin 11.2 g/dl (12.0-16.0); Mean Corpuscular Hemoglobin 31.9 pg (25.0-34.0); Mean Corpuscular Hgb Conc 32.9 g/dL (32.0-36.0); Mean Corpuscular Volume 96.9 fL (80.0-100.0); Mean Platelet Volume 10.1 fL (9.4-12.3); Platelet Count 232 K/uL (130-400); RDW Coefficient of Variation 14.7 % (11.5-14.5); RDW Standard Deviation 51.2 fL (36.4-46.3); Red Blood Count 3.51 M/uL (3.93-5.22); White Blood Count 7.75 K/ul (4.8-10.8)
[2022-07-13 07:04] LABS: INR 2.8 (0.9-1.1); Prothrombin Time 27.8 Seconds (9.0-12.0)
[2022-07-13 07:14] LABS: BUN Creatinine Ratio 28.6 (10-20); Calcium 8.9 mg/dl (8.5-10.1); Creatinine Clr Calc Pharmacy 50.5 ml/min; Est GFR (Non-African American) 64.7 ml/min; Potassium 4.6 mmol/L (3.5-5.1)
[2022-07-13 07:45] LABS: Estimated Average Glucose 192 mg/dl; Hemoglobin A1C 8.3 % (4.5-5.6)
--- NOTE | 2022-07-13 08:35 | Cardiology Consultation ---
Date of Consultation July 13, 2022 Assessment & Plan (1) Mitral stenosis: (2) History of transcatheter aortic valve replacement (TAVR): (3) Coronary artery disease with angina pectoris: (4) S/P placement of cardiac pacemaker: (5) Acute on chronic heart failure with reduced ejection fraction and diastolic dysfunction: Plan Patient with complicated cardiac history, outlined above. Admitted for worsening dyspnea/hypoxia, with symptoms consistent with acute on chronic HF exacerbation. Pulm vascular congestion and small b/l pleural effusions on chest xray. Started on IV lasix and symptoms starting to improve per patient. Monitor I+O's. Daily weight with standing scale. Diltiazem was recently initiated as outpatient to aid with HR response and angina. This may (or may not) have contributed to her worsening volume status. Will discontinue. Increase metoprolol to 150 mg in AM And 100 mg in PM. Echo updated this admission demonstrating interval decline in LV function since last evaluation (January 2021) with now moderate LV dysfunction, moderate mitral stenosis and severe pulm hypertension. Likely needs higher dose diuretic as outpatient. Patient not on ERNST/ARB due to history of hyperkalemia. will also avoid spironolactone She has a history of AV chintan ablation, chronic pacing. Appropriate function per device interrogation today. Rate response activities have been turned off. Initially this was thought to be contributing to her worsening dyspnea/angina, but unlikely. She has chronic dyspnea and chest pain consistent with angina. her HS troponin was not significantly elevated on admission and flat. Symptoms are not indicative of ACS. She has a history of complex coronary artery disease with failed LAD intervention resulting in dissection. Ongoing medical management has been advised, unless symptoms of acute ACS are present. Will await response of diuretics today and titration of metoprolol. Consider adding Ranexa for anti anginal support as well. Case discussed with Dr. Hamilton and Dr. Carter. Will follow Supervising Physician Co-Signing Physician Notes I have seen and examined the patient. I have discussed the case with Omar Nathan and reviewed the medical record. She has a long complex history of heart disease. She is volume overloaded and will need additional diuretics. Agree with the plan as outlined above. History of Present Illness Reason for Consultation: SOB; CHF Requesting Physician: Ms. Romel PA-C Attending Physician: Dr. Hamilton History of Present Illness Patient is a complex 82 year old female, known to [facility] (Dr. Arredondo/Jesse Cole PA-C). History includes: 1. ASCVD 1. Status post PCI of the proximal LAD with a DENISE on on May 19, 2017 2. Status post PCI of the mid LAD with a 2.75 x 26 mm Resolute Segundo drug eluting stent (overlapping with the previously placed Xience drug eluting) on 01/25/2019 3. Presentation in November 2020 with crescendo angina. Diagnostic cardiac catheterization demonstrating a 95% mid LAD stenosis distal to the prior stent with intervention complicated by significant dissection of the left main coronary artery extending into the left circumflex and left anterior descending. The mid LCX into the OM3 was stented with a drug eluting stent with resultant KHARI grade III flow, residual nonflow limiting dissection in the proximal LCX. Attempts to cross the LAD occlusion were unsuccessful. 4. Class 3 angina pectoris with low level exertional tolerance 2. Paroxysmal atrial fibrillation with a rapid ventricular response first documented while hospitalized at [facility] in November 2020, highly symptomatic, significant angina symptoms 3. Severe aortic valve stenosis status post February 26, 2019 TAVR with a #23 mm Najera Sade S3 Valve on 02/26/2019. 4. Calcific mitral stenosis, moderate or greater. 5. Carotid occlusive disease. Status post left carotid endarterectomy in 05/2013. Status post June 2016 right carotid endarterectomy . 6. Chronic obstructive and restrictive pulmonary disease, asthma 7. Hypertension. 8. Hyperlipidemia. 9. Diabetes mellitus with neuropathy. 10. Chronic laryngospasm. 11. Hiatal hernia. 12. Esophageal reflux. 13. Hypothyroidism. 14. RLS. 15. Mechanical fall February 27, 2021 multiple right posterior rib fractures, small hemothorax admitted to [facility] [place] trauma alert 16. 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 Her symptoms have typically resolved with 1 SL nitro. Her pacemaker has been adjusted for rate response and then atrial therapies turned off without significant improvement. Most recent visit diltiazem 120 mg daily was added to aid with HR response and anginal symptoms. Unfortunately patient feels the medication made no significant change in her symptoms. Over the last few days, her SOB worsened associated with increased edema, abdominal bloating and worsening cough/wheeze. She came to the ER for evaluation. EKG demonstrated atrial sensed, ventricular paced rhythm. HS troponin minimally elevated but flat, consistent with underlying ischemic heart disease/CHF. Chest xray demonstrated pulm vascular congestion/pulm edema. She was mildly hypoxic. Patient was started on IV furosemide, receiving several doses prior to consult. Patient reports her symptoms have mildly improved overnight. She continues to report "wheezing" when trying to lay in bed. Wearing supplemental O2 currently and comfortable. She has not been up ambulating this morning to assess dyspnea. No chest tightness or throat tightness currently. No dizziness or lightheadedness. Patient reports she is frustrated by ongoing dyspnea that limits her activities. Echo was completed this morning and results pending. Allergies Allergy/AdvReac Type Severity Reaction Status Date / Time empagliflozin Allergy Intermediate BLOOD IN Verified 08/29/21 02:28 [From Jardiance] URINE, BLADDER INFECTION carbamazepine Allergy Mild RASH Verified 08/29/21 02:28 oxaprozin Allergy Mild RASH/HIVES Verified 08/29/21 02:28 valproic acid Allergy Mild HEAD-TOE Verified 08/29/21 02:28 RASH Home Medications Medication Instructions Recorded Confirmed Type acetaminophen 500 mg tablet 1,000 mg PO Q6H PRN Pain 06/12/19 07/12/22 History atorvastatin 80 mg tablet 80 mg PO HS 06/12/19 07/12/22 History bimatoprost 0.01 % eye drops 1 drp OPB HS 06/12/19 07/12/22 History (Marion) clopidogrel 75 mg tablet 75 mg PO QAM 06/12/19 07/12/22 History fluticasone propionate 50 2 spray intranasal DAILY 06/12/19 07/12/22 History mcg/actuation nasal spray,suspension (Flonase Allergy Relief) gabapentin 300 mg capsule See Rx Instructions .Route .COMPLEX 06/12/19 07/12/22 History levothyroxine 25 mcg tablet 25 mcg PO DAILYBB 06/12/19 07/12/22 History multivitamin 1 tab PO QAM 06/12/19 07/12/22 History nitroglycerin 0.4 mg sublingual 0.4 mg sublingual DIRECTED PRN 06/12/19 07/12/22 History tablet Angina omeprazole 20 mg tablet,delayed 20 mg PO DAILY 06/12/19 07/12/22 History release ropinirole 0.25 mg tablet 0.25 mg PO HS 06/12/19 07/12/22 History metformin 500 mg tablet 500 mg PO BIDM 07/13/20 07/12/22 History cyanocobalamin (vitamin B-12) 1,000 mcg PO QAM 11/11/20 07/12/22 History 1,000 mcg tablet docusate sodium 100 mg tablet 100 mg PO BID PRN Constipation 11/11/20 07/12/22 History (Stool Softener) magnesium oxide 400 mg PO DAILY 11/11/20 07/12/22 History netarsudil 0.02 % eye drops 1 drp OPB HS 11/11/20 07/12/22 History (Rhopressa) evolocumab 140 mg/mL subcutaneous 140 mg subcut .Q14 DAYS 02/27/21 07/12/22 History pen injector (Repatha SureClick) furosemide 20 mg tablet (Lasix) 20 mg PO 3XWK PRN Fluid Retention 02/27/21 07/12/22 History glipizide 5 mg tablet 5 - 10 mg PO DAILY 02/27/21 07/12/22 History isosorbide mononitrate 60 mg 120 mg PO DAILY 02/27/21 07/12/22 History tablet,extended release 24 hr warfarin 5 mg tablet 5 mg PO DAILY@1600 02/27/21 07/12/22 History Cranberry Caps 360 mg PO DAILY 08/29/21 07/12/22 History albuterol sulfate 90 mcg/actuation 2 puff inhalation Q4 PRN Wheezing 08/29/21 07/12/22 History aerosol inhaler diphenhydramine 25 2 tab PO HS PRN Pain 08/29/21 07/12/22 History mg-acetaminophen 500 mg tablet (Tylenol PM Extra Strength) montelukast 10 mg tablet 10 mg PO DAILY 08/29/21 07/12/22 History tramadol 50 mg tablet 50 mg PO Q6H PRN moderate to 09/03/21 07/12/22 Rx severe pain #14 tabs diltiazem HCl 120 mg 120 mg PO DAILY 07/12/22 07/12/22 History capsule,extended release 24 hr iron,carbonyl 65 mg-vitamin C 125 1 tab PO DAILY 07/12/22 07/12/22 History mg tablet,delayed release (Vitron-C) metoprolol succinate 25 mg 100 mg PO BID 07/12/22 07/12/22 History tablet,extended release 24 hr Patient History Medical History (Updated 07/13/22 @ 11:06 by Kim Evans PA-C) Cardiac murmur no longer since heart valve surgery 02/2019 Chronic back pain Diabetes mellitus, type 2 GERD (gastroesophageal reflux disease) Glaucoma History of transcatheter aortic valve replacement (TAVR) Hyperlipidemia Hypertension Hypothyroidism Hypoxia, sleep related uses oxygen at hs 2.5 Laryngeal spasm On anticoagulant therapy on plavix daily On home oxygen therapy 2.5 LITER AT HS Osteoarthritis Restless leg syndrome Tachy-tanner syndrome Surgical History (Updated 07/12/22 @ 14:31 by Deb Urena PA-C) History of abdominal surgery for bowel obstruction History of aortic valve replacement 02/26/19 @ [facility] [place]--follows with Dr. Arredondo History of appendectomy History of cardiac cath x4 with a total of 4 stents--last--12/2018 @ [facility] [place] x1 DRUG ELUTING STENT History of colonoscopy History of esophagogastroduodenoscopy (EGD) History of heart artery stent a total of 4 stents--last--12/2018 @ [facility] [place] x1 DRUG ELUTING STENT History of hip surgery left 2 screws placed after total hip replacement History of lumbar laminectomy for spinal cord decompression x2 History of right cataract surgery History of tonsillectomy History of tooth extraction all teeth removed History of total hysterectomy with bilateral salpingo-oophorectomy (BSO) History of total left hip replacement History of total left knee replacement (TKR) History of total right knee replacement (TKR) S/P placement of cardiac pacemaker Aug 2021 Status post glaucoma surgery right eye Status post trigger finger release left hand Family History Mother Diabetes Osteoporosis Heart disease Grandmother (Maternal) Diabetes Father Heart disease Other Asthma No family history of adverse response to anesthesia Social History Smoking Status: Never smoker Tobacco Type: Cigarettes Second Hand Exposure: No; Do You Dip or Chew Tobacco: No; Tobacco Cessation Education Requested by Patient: No Hx Alcohol Use: No Hx Substance Use: No Preferred Language: Bahraini Communication Ability: Effective Personal Injury Legal Assistant Required: No Beliefs That Will Affect Care: None marital status: Current Living Situation: Alone Current Living Situation Comment: Lives with Other Information That Helps Us Care for You: No Feels Safe at Home: Yes Safety Concerns: Feels Safe At This Time Assistive Devices: Cane and Walker Review of Systems Review of Systems: All systems reviewed & are unremarkable except as noted in HPI & below Physical Exam Constitutional: WD/WN, vitals as above no acute distress Neck: trachea midline, no thyromegaly Respiratory: no respiratory distress Auscultation: + diminished lung sounds (b/l with faint scattered wheeze) Cardiovascular: Rate/Rhythm: regular rate and regular rhythm Heart Sounds: + murmur (II/ systolic murmur) Vessels: no JVD (in the upright position (examined in chair)) Extremities: + edema (1 + pretibial edema with chronic stasis changes) Gastrointestinal (Abdomen): normal bowel sounds, soft, nontender, no hepatosplenomegaly Skin: no rashes, warm and dry Neurologic: PERRL, EOMI, accommodation nl, no face palsy, no dysarthria Results & Data ([facility]) Vital Signs (Past 12 Hours) Vital Signs Temp Pulse Pulse Resp BP Pulse Ox O2 Del Method 07/13/22 07:08 36.6 C 76 18 134/70 99 Nasal Cannula 07/13/22 03:15 36.6 C 73 18 142/68 H 97 Nasal Cannula 07/12/22 22:21 79 07/12/22 23:19 37 C 79 18 140/74 96 Nasal Cannula O2 Flow Rate 07/13/22 07:08 2 07/13/22 03:15 2 07/12/22 22:21 07/12/22 23:19 2 Laboratory Results Cardiac Enzymes 07/12/22 07/12/22 07/12/22 Range/Units 10:52 10:52 12:10 AST 17 (13-39) U/L Troponin I High Sens 20.9 H 25.6 H (0-14) pg/ml B-Natriuretic Peptide 1936 H (0-100) pg/ml 07/12/22 07/13/22 Range/Units 18:31 00:23 AST (13-39) U/L Troponin I High Sens 30.8 H 29.0 H (0-14) pg/ml B-Natriuretic Peptide (0-100) pg/ml Coagulation 07/12/22 07/12/22 07/13/22 Range/Units 10:52 10:52 05:44 PT 38.5 H 27.8 H (9.0-12.0) Seconds B-Natriuretic Peptide 1936 H (0-100) pg/ml CBC 07/12/22 07/13/22 Range/Units 10:52 05:44 WBC 7.24 7.75 (4.8-10.8) K/ul RBC 3.42 L 3.51 L (3.93-5.22) M/uL Hgb 10.9 L 11.2 L (12.0-16.0) g/dl Hct 33.7 L 34.0 L (34.1-44.9) % Plt Count 230 232 (130-400) K/uL Neut # (Auto) 5.42 (1.4-6.5) K/uL Lymph # (Auto) 1.18 L (1.2-3.4) K/uL Stone # (Auto) 0.53 (0.24-0.82) K/uL Eos # (Auto) 0.06 (0-0.50) K/uL Baso # (Auto) 0.01 (0-0.2) K/uL Comprehensive Metabolic Panel 07/12/22 07/13/22 Range/Units 10:52 05:44 Sodium 142 140 (136-145) mmol/L Potassium 4.6 4.6 (3.5-5.1) mmol/L Chloride 107 103 (98-107) mmol/L Carbon Dioxide 29 31 (21-32) mmol/L BUN 20 24 H (6-23) mg/dl Creatinine 0.78 0.84 (0.6-1.2) mg/dl Glucose 238 H 174 H (70-99(Fasting)) mg/dl Calcium 8.9 8.9 (8.5-10.1) mg/dl AST 17 (13-39) U/L ALT 29 (7-52) U/L Alkaline Phosphatase 44 (34-104) U/L Total Protein 6.3 (6.0-8.3) gm/dl Albumin 3.9 (3.4-5.0) gm/dl Intake and Output 07/12/22 07/13/22 07/13/22 22:59 06:59 14:59 Output Total 725 / 800 75 / 800 Balance -725 / -800 -75 / -800 Output: Urine 650 / 650 Urine Amount (Catheter) 75 / 150 75 / 150 Joyner/Indwelling 75 / 150 75 / 150 Other: Weight 76.113 kg 76.204 kg Weight Measurement Method Built in [facility] Built in [facility] Diagnostic Findings Telemetry reviewed: atrial sensed, chronic ventricular paced rhythm - telemetry is not sensing pacer spikes. HR's in the 80's. EKG - atrial sensed, ventricular paced rhythm. Device interrogation today via [employer] rep- appropriate function, battery longevity. Atrial therapies/rate response turned off. Chest X-Ray 07/12/22 10:35 XR chest 1V portable CLINICAL HISTORY: Dyspnea. COMPARISON STUDY: Chest CT August 30, 2021 and chest radiograph September 01, 2021. FINDINGS: Left subclavian pacer is in place. There is a prosthetic aortic valve. Extensive mitral annular calcification is noted. There is moderate cardiomegaly. Mild pulmonary edema is noted. Small left and trace right pleural effusions are noted. Associated left basilar opacity is present. IMPRESSION: 1. Mild pulmonary edema with small left and trace right pleural effusions and associated bibasilar opacities. 2. Cardiomegaly. ACT 112: Negative or not required by law. Electronically signed by: Jordy Domingo M.D. 07/12/2022 11:19 AM Prior outside echo January 2021: Echo report reviewed from January 2021: LVEF 50-54% Large sized apical, anteroseptal, anterior, and lateral wall motion abnormality with hypokinesis to akinesis of the segments. Patient is s/p TAVR with Sade type prosthetic valve. mild paravalvular aortic valve prosthesis regurg is present Aortic valve prostehsis stenosis is absent. Severe MAC Moderate mitral stenosis mild MR Moderate TR estimated pulm pressures are 44 mmHg. Medications Administered Current Inpatient Medications Acetaminophen (Acetaminophen 325 Mg Tab) 650 mg PO Q4H PRN PRN Reason: Pain or Fever Stop: 08/11/22 15:24 Albuterol (Albuterol Hfa 8 Gm Inhaler) 2 puffs INH Q4 PRN PRN Reason: Wheezing Stop: 08/11/22 15:24 Atorvastatin Calcium (Atorvastatin 40 Mg Tab) 80 mg PO HS PRIMO Stop: 08/11/22 20:59 Last Admin: 07/12/22 20:30 Dose: 80 mg Clopidogrel Bisulfate (Clopidogrel Bisulfate 75 Mg Tab) 75 mg PO QAM PRIMO Stop: 08/12/22 08:59 Last Admin: 07/13/22 08:59 Dose: 75 mg Cyanocobalamin (Cyanocobalamin (B-12) 500 Mcg Tablet) 1,000 mcg PO QAM PRIMO Stop: 08/12/22 08:59 Last Admin: 07/13/22 09:01 Dose: 1,000 mcg Dextrose (Dextrose 50% 50 Ml Syringe) 25 - 50 ml IV UD PRN; Protocol PRN Reason: Hypoglycemia Protocol Stop: 08/11/22 15:47 Docusate Sodium (Docusate Sodium 100 Mg Cap) 100 mg PO BID PRN PRN Reason: Constipation Stop: 08/11/22 16:16 Fluticasone Propionate (Fluticasone Propionate Na Spr 16 Gm Btl) 2 sprays JAQUELIN DAILY PRIMO Stop: 08/12/22 08:59 Last Admin: 07/13/22 09:00 Dose: 2 sprays Furosemide (Furosemide Inj 20 Mg/2 Ml Vial) 20 mg IV DAILY PRIMO Stop: 08/12/22 08:59 Last Admin: 07/13/22 09:02 Dose: 20 mg Gabapentin (Gabapentin 300 Mg Cap) 300 mg PO QAM PRIMO Stop: 08/12/22 08:59 Last Admin: 07/13/22 09:01 Dose: 300 mg Gabapentin (Gabapentin 600 Mg Tab) 600 mg PO HS PRIMO Stop: 08/11/22 20:59 Last Admin: 07/12/22 20:28 Dose: 600 mg Glucagon (Glucagon For Inj 1 Mg Vial) 1 mg SQ UD PRN; Protocol PRN Reason: Hypoglycemia Protocol Stop: 08/11/22 15:47 Glucose (Glucose 40% Gel 15 Gm Tube) 15 - 30 gm PO UD PRN; Protocol PRN Reason: Hypoglycemia Protocol Stop: 08/11/22 15:47 Glucose (Glucose 10 Tab/Tube) 4 - 8 tab PO UD PRN; Protocol PRN Reason: Hypoglycemia Treatment Stop: 08/11/22 15:47 Insulin Aspart (Insulin Aspart Per Unit) 0 units SC ACHS PRIMO Stop: 08/11/22 16:29 Last Admin: 07/13/22 08:58 Dose: 7 units Isosorbide Mononitrate (Isosorbide Stone Extended Rel 60 Mg Tabcr) 120 mg PO DAILY PRIMO Stop: 08/12/22 08:59 Last Admin: 07/13/22 09:01 Dose: 120 mg Levothyroxine Sodium (Levothyroxine Sodium 25 Mcg Tablet) 25 mcg PO DAILYBB PRIMO Stop: 08/12/22 06:29 Last Admin: 07/13/22 05:56 Dose: 25 mcg Melatonin (Melatonin 3 Mg Tab) 3 mg PO HS PRN PRN Reason: Sleep Stop: 08/12/22 00:44 Last Admin: 07/13/22 01:08 Dose: 3 mg Metoprolol Succinate (Metoprolol Succ 50mg Ext Rel Tab) 100 mg PO BID PRIMO Stop: 08/11/22 20:59 Last Admin: 07/13/22 09:00 Dose: 100 mg Miscellaneous (Order Awaiting Action [Bimatoprost [Lumigan] 0.01 % Drops)]) 1 each N/A QS [facility] Stop: 08/12/22 00:00 Last Admin: 07/13/22 08:59 Dose: Not Given Miscellaneous (Order Awaiting Action [Netarsudil [Rhopressa] 0.02 % Drops)]) 1 each N/A QS [facility] Stop: 08/12/22 00:00 Last Admin: 07/13/22 08:59 Dose: Not Given Miscellaneous (Carbohydrates For Hypoglycemia ) 15 - 30 gm PO UD PRN PRN Reason: Hypoglycemia Protocol Stop: 08/11/22 15:47 Montelukast Sodium (Montelukast Sodium 10 Mg Tablet) 10 mg PO DAILY PRIMO Stop: 08/12/22 08:59 Last Admin: 07/13/22 09:01 Dose: 10 mg Multivitamins (Multivitamin Tab) 1 tab PO QAM PRIMO Stop: 08/12/22 08:59 Last Admin: 07/13/22 09:01 Dose: 1 tab Nitroglycerin (Nitroglycerin Sl 0.4 Mg/Tab Tab) 0.4 mg SL Q5M PRN PRN Reason: Angina Ondansetron HCl (Ondansetron Inj 2 Mg/Ml 2 Ml Vial) 4 mg IV Q6H PRN PRN Reason: Nausea Stop: 08/11/22 15:24 Pantoprazole Sodium (Pantoprazole 40 Mg Tab) 40 mg PO DAILY PRIMO Stop: 08/12/22 08:59 Last Admin: 07/13/22 08:59 Dose: 40 mg Polyethylene Glycol (Polyethylene (Miralax) 17 Gm Pack) 17 gm PO DAILY PRN PRN Reason: Constipation Stop: 08/11/22 15:24 Ropinirole HCl (Ropinirole Hcl 0.25 Mg Tablet) 0.25 mg PO [facility] Stop: 08/11/22 20:59 Last Admin: 07/12/22 20:28 Dose: 0.25 mg
[2022-07-13] MEDS: INSULIN ASPART PER UNIT SC SCH ×4 (08:58→20:08)
[2022-07-13] MEDS: CLOPIDOGREL BISULFATE 75 MG TAB PO SCH (08:59)
[2022-07-13] MEDS: PANTOprazole 40 MG TAB PO SCH (08:59)
[2022-07-13] MEDS ORDERED: CRANBERRY PO SCH (09:00)
[2022-07-13] MEDS ORDERED: NON-FORMULARY MEDICATION (Iron,Carbonyl-Vitamin C [Vitron-C] 65 mg iron- 125 mg Tablet,Del PO SCH (09:00)
[2022-07-13] MEDS ORDERED: dilTIAZem HCL 120 MG CAPCR PO SCH (09:00)
[2022-07-13] MEDS: FLUTICASONE PROPIONATE NA SPR 16 GM BTL NAE SCH (09:00)
[2022-07-13] MEDS: METOPROLOL SUCC 50MG EXT REL TAB PO SCH ×2 (09:00→20:15)
[2022-07-13] MEDS: MULTIVITAMIN TAB PO SCH (09:01)
[2022-07-13] MEDS: ISOSORBIDE MONO EXTENDED REL 60 MG TABCR PO SCH (09:01)
[2022-07-13] MEDS: GABAPENTIN 300 MG CAP PO SCH (09:01)
[2022-07-13] MEDS: CYANOCOBALAMIN (B-12) 500 MCG TABLET PO SCH (09:01)
[2022-07-13] MEDS: MONTELUKAST SODIUM 10 MG TABLET PO SCH (09:01)
[2022-07-13] MEDS: FUROSEMIDE INJ 20 MG/2 ML VIAL IV SCH (09:02)
[2022-07-13] MEDS ORDERED: METOPROLOL SUCC 50MG EXT REL TAB PO ONE (11:17)
--- NOTE | 2022-07-13 19:11 | Hospitalist Progress Note ---
Date of Service July 13, 2022 Assessment & Plan (1) Hypoxia: (2) Shortness of breath: (3) Decompensated heart failure: (4) Tachy-tanner syndrome: (5) S/P placement of cardiac pacemaker: (6) CAD (coronary artery disease): (7) S/P TAVR (transcatheter aortic valve replacement): (8) Afib: (9) Chronic anticoagulation: (10) Hypertension: (11) Carotid stenosis: (12) Diabetes mellitus, type II: (13) Hypothyroidism: (14) Restless leg syndrome: Plan This is an 81 yo F with extensive PMH of HFpEF (January 2021 TTE EF 60%), aortic stenosis s/p TAVR, paravalvular aortic prosthesis regurgitation, tachy tanner syndrome s/p PM placement Aug 2021, CAD s/p stents, carotid stenosis s/p bilateral endarterectomies, PVD, PAF on coumadin, HTN, HLD, pulmonary, HTN, DM2, hypothyroidism, chronic anemia, history of laryngospasm and other medical problems as above who presents with progressive shortness of breath over the past 2 weeks and was found to have decompensated heart failure. Acute on chronic heart failure with reduced ejection fraction and diastolic dysfunction: Hypoxia Shortness of breath Present on admission with worsening shortness of breath CXR with mild pulmonary edema with small left and trace right pleural effusions and associated bibasilar opacities and cardiomegaly COVID 19, Flu, RSV and procalcitonin negative. High-sensitivity troponin 25.6, BNP 1936 ECHO showed large size apical, septal, lateral and inferior wall motion abnorm ality. Left ventricular systolic function is mild to moderately reduced with ejection fraction 35 to 40%. currently on supplement oxygen with 1L DC Cardiology on board Continue Lasix 20mg IV daily Continue monitor I/O Consider two-step exercise before to discharge Tachy tanner syndrome s/p PM placement Aug 2021 Pacemaker interrogated and functioning properly Cardizem all discontinued by cardiology Metoprolol increased 150 mg in the morning and 100 mg at night Continue monitor closely Atrial fibrillation Rate control with [id number] in AM and 100mg HS Coumadin resumed with INR of 2.8 today Diltiazem discontinued by cardiology Continue monitor PT/INR CAD H/o stents x4 in 2019, class 3 angina pectoris with low level exertional tolerance Continue statin, plavix, beta deny, Imdur Carotid stenosis H/o bilateral endarterectomy DM II Most recent hemoglobin A1c 8.3 on 04/12/22 Continue to hold diabetes medication Continue insulin sliding scale while in-patient Continue monitor BS Hypothyroidism Continue levothyroxine check TSH in am RLS Continue ropinirole DVT Ppx: coumadin Code status: FULL PCP: Lorelei Disposition We will discharge once medically stable Admission and Anticipated Discharge Date Admission Date: July 12, 2022 Subjective Patient was seen and evaluated for follow-up of shortness of breath Lying in bed with no acute distress with family member at bedside Patient said that her breathing feels a lot better today Currently she is on 1 L nasal cannula oxygen Denies any chest pain, palpitation, dizziness, fever Review of Systems Review of Systems: All systems reviewed & are unremarkable except as noted in Subjective Physical Exam Physical Exam: General- No acute distress Head- atraumatic Eyes- PERRL, EOMI, ENT- oropharynx clear Neck- supple, no JVD Lungs- +diminished BS Heart- regular rhythm; +murmur Abdomen- normal bowel sounds, soft, nontender Extremities- no calf tenderness, +edema Neuro- alert, oriented x 3; PERRL, EOMI; no facial palsy; no dysarthria Skin- warm & dry Results & Data Results & Data ([facility]) Vital Signs (Past 12 Hours) Vital Signs Temp Pulse Pulse Resp BP Pulse Ox Pulse Ox 07/13/22 19:05 36.8 C 77 19 103/63 96 07/13/22 15:25 96 07/13/22 15:31 36.8 C 73 16 149/72 H 97 07/13/22 11:07 36.5 C 77 18 108/63 96 07/13/22 09:57 77 07/13/22 09:27 O2 Del Method O2 Del Method O2 Flow Rate O2 Flow Rate 07/13/22 19:05 Nasal Cannula 1 07/13/22 15:25 Nasal Cannula 2 07/13/22 15:31 Room Air 07/13/22 11:07 Nasal Cannula 1 07/13/22 09:57 07/13/22 09:27 Nasal Cannula 2
[2022-07-13] MEDS: ATORVASTATIN 40 MG TAB PO SCH (20:11)
[2022-07-13] MEDS: GABAPENTIN 600 MG TAB PO SCH (20:13)
[2022-07-13] MEDS: rOPINIRole HCL 0.25 MG TABLET PO SCH (20:13)
[2022-07-13] MEDS: WARFARIN SOD 5 MG TAB PO SCH (20:21)
[2022-07-14] MEDS: LEVOTHYROXINE SODIUM 25 MCG TABLET PO SCH (05:37)
[2022-07-14 06:50] LABS: Hematocrit (blood only) 33.8 % (34.1-44.9); Hemoglobin 10.9 g/dl (12.0-16.0); Mean Corpuscular Hemoglobin 31.2 pg (25.0-34.0); Mean Corpuscular Hgb Conc 32.2 g/dL (32.0-36.0); Mean Corpuscular Volume 96.8 fL (80.0-100.0); Mean Platelet Volume 9.6 fL (9.4-12.3); Platelet Count 218 K/uL (130-400); RDW Coefficient of Variation 14.6 % (11.5-14.5); Red Blood Count 3.49 M/uL (3.93-5.22); White Blood Count 6.15 K/ul (4.8-10.8)
[2022-07-14 07:19] LABS: INR 1.9 (0.9-1.1); Prothrombin Time 19.3 Seconds (9.0-12.0)
[2022-07-14 07:28] LABS: BUN Creatinine Ratio 31.3 (10-20); Calcium 8.9 mg/dl (8.5-10.1); Creatinine Clr Calc Pharmacy 52.5 ml/min; Est GFR (African American) 79.6 ml/min; Est GFR (Non-African American) 68.7 ml/min; Potassium 4.7 mmol/L (3.5-5.1)
[2022-07-14] MEDS: cefTRIAXone SODIUM 1,000 MG in DEXTROSE 5% 50 ML IV SCH (07:51)
[2022-07-14] MEDS: INSULIN ASPART PER UNIT SC SCH ×4 (08:05→21:24)
[2022-07-14] MEDS: GABAPENTIN 300 MG CAP PO SCH (08:06)
[2022-07-14] MEDS: ISOSORBIDE MONO EXTENDED REL 60 MG TABCR PO SCH (08:06)
[2022-07-14] MEDS: METOPROLOL SUCC 50MG EXT REL TAB PO SCH ×2 (08:07→20:22)
[2022-07-14] MEDS: MONTELUKAST SODIUM 10 MG TABLET PO SCH (08:08)
[2022-07-14] MEDS: MULTIVITAMIN TAB PO SCH (08:08)
[2022-07-14] MEDS: CLOPIDOGREL BISULFATE 75 MG TAB PO SCH (08:09)
[2022-07-14] MEDS: CYANOCOBALAMIN (B-12) 500 MCG TABLET PO SCH (08:09)
[2022-07-14] MEDS: PANTOprazole 40 MG TAB PO SCH (08:09)
[2022-07-14] MEDS: FLUTICASONE PROPIONATE NA SPR 16 GM BTL NAE SCH (08:09)
[2022-07-14] MEDS: FUROSEMIDE INJ 20 MG/2 ML VIAL IV SCH (08:09)
--- NOTE | 2022-07-14 09:05 | Cardiology Progress Note ---
Date of Service July 14, 2022 Assessment & Plan (1) Acute on chronic heart failure with reduced ejection fraction and diastolic dysfunction: (2) Mitral stenosis: (3) History of transcatheter aortic valve replacement (TAVR): (4) Coronary artery disease with angina pectoris: (5) S/P placement of cardiac pacemaker: Plan Patient with complicated cardiac history, outlined above. Admitted for worsening dyspnea/hypoxia, with symptoms consistent with acute on chronic HFr EF Echo demonstrating reduced LVEF at 40% and severe pulm hypertension, moderate MS. Pulm vascular congestion and small b/l pleural effusions on chest xray. Started on IV lasix. Good urine outputs over the last 24 hours with furosemide 20 mg IV in AM. Await response this morning, consider additional dose of 20 mg this afternoon Monitor I+O's. Daily weight with standing scale. Diltiazem was recently initiated as outpatient to aid with HR response and angina. This may (or may not) have contributed to her worsening volume status. Will discontinue. Increase metoprolol to 150 mg in AM And 100 mg in PM. Echo updated this admission demonstrating interval decline in LV function since last evaluation (January 2021) with now moderate LV dysfunction, moderate mitral stenosis and severe pulm hypertension. Likely needs higher dose diuretic as outpatient. Patient not on ERNST/ARB due to history of hyperkalemia. will also avoid spironolactone She has a history of AV chintan ablation, chronic pacing. Appropriate function per device interrogation. Rate response activities have been turned off. Initially this was thought to be contributing to her worsening dyspnea/angina, but unlikely. She has chronic dyspnea and chest pain consistent with angina. her HS troponin was not significantly elevated on admission and flat. Symptoms are not indicative of ACS. She has a history of complex coronary artery disease with failed LAD intervention resulting in dissection. Ongoing medical management has been advised, unless symptoms of acute ACS are present. Continue diuretics today. Update chest xray. Consider adding Ranexa for anti anginal support as well if needed Case discussed with Dr. Hamilton. Will follow. Admission and Anticipated Discharge Date Admission Date: July 12, 2022 Supervising Physician Co-Signing Physician Notes I have seen and examined the patient. I reviewed the medical record and discussed the case with Nathan. I agree with the plan as outlined above. The patient has found great improvement in her symptoms in the past 24 hours. Subjective Patient resting in chair comfortably. She reports her SOB has improved from admission. Less "wheezing". Slept better last night. No chest pain or throat tightness. Was mildly hypoxic this morning and still requiring supplemental O2. Tolerating medications. No dizziness or lightheadedness. Good urine outputs overnight. Weight trending down. Review of Systems Review of Systems: All systems reviewed & are unremarkable except as noted in HPI & below Physical Exam Constitutional: WD/WN, vitals as above no acute distress Neck: trachea midline, no thyromegaly Respiratory: no respiratory distress Auscultation: + diminished lung sounds (b/l with faint scattered wheeze) Cardiovascular: Rate/Rhythm: regular rate and regular rhythm Heart Sounds: + murmur (II/ systolic murmur) Vessels: no JVD (in the upright position (examined in chair)) Extremities: + edema (1 + pretibial edema with chronic stasis changes) Gastrointestinal (Abdomen): normal bowel sounds, soft, nontender, no hepatosplenomegaly Skin: no rashes, warm and dry Neurologic: PERRL, EOMI, accommodation nl, no face palsy, no dysarthria Results & Data ([facility]) Vital Signs (Past 12 Hours) Vital Signs Temp Pulse Pulse Resp BP Pulse Ox O2 Del Method 07/14/22 07:25 36.6 C 64 19 109/62 93 Room Air 07/14/22 03:39 36.7 C 65 17 144/77 H 94 Nasal Cannula 07/13/22 23:25 73 07/13/22 23:07 36.7 C 71 18 134/77 96 Nasal Cannula O2 Flow Rate 07/14/22 07:25 07/14/22 03:39 1 07/13/22 23:25 07/13/22 23:07 1 Laboratory Results Coagulation 07/14/22 Range/Units 06:29 PT 19.3 H (9.0-12.0) Seconds CBC 07/14/22 Range/Units 06:29 WBC 6.15 (4.8-10.8) K/ul RBC 3.49 L (3.93-5.22) M/uL Hgb 10.9 L (12.0-16.0) g/dl Hct 33.8 L (34.1-44.9) % Plt Count 218 (130-400) K/uL Comprehensive Metabolic Panel 07/14/22 Range/Units 06:29 Sodium 139 (136-145) mmol/L Potassium 4.7 (3.5-5.1) mmol/L Chloride 101 (98-107) mmol/L Carbon Dioxide 34 H (21-32) mmol/L BUN 25 H (6-23) mg/dl Creatinine 0.80 (0.6-1.2) mg/dl Glucose 172 H (70-99(Fasting)) mg/dl Calcium 8.9 (8.5-10.1) mg/dl Intake and Output 07/13/22 07/14/22 07/14/22 22:59 06:59 14:59 Intake Total 200 / 675 60 / 60 Output Total 775 / 1775 Balance -575 / -1100 60 / 60 Intake: IV 60 / 60 cefTRIAXone SODIUM 1,000 mg In 60 / 60 Dextrose 5% 50 ml @ 100 mls/hr IV Q24H [facility]IMO Rx#:[id number] Oral 200 / 675 Output: Urine 250 / 250 Urine Amount (Catheter) 525 / 1525 Joyner/Indwelling 525 / 1525 Other: Weight 74.7 kg Weight Measurement Method Standing Scale Diagnostic Findings Telemetry reviewed: atrial sensed, chronic pacing. HR"s in the 70's Echo results reviewed this admission: Mild concentric LVH LVEF 35-40% S/P TAVR with normal excursion. Prosthetic aortic valve stenosis is absent. Severe MAC with mild MR, moderate MS Moderate TR Severe pulm hypertension wiht pulm artery systolic pressure is 70 mmHg Grade II diastolic dysfunction. Medications Administered Current Inpatient Medications Acetaminophen (Acetaminophen 325 Mg Tab) 650 mg PO Q4H PRN PRN Reason: Pain or Fever Stop: 08/11/22 15:24 Albuterol (Albuterol Hfa 8 Gm Inhaler) 2 puffs INH Q4 PRN PRN Reason: Wheezing Stop: 08/11/22 15:24 Atorvastatin Calcium (Atorvastatin 40 Mg Tab) 80 mg PO HS [facility] Stop: 08/11/22 20:59 Last Admin: 07/13/22 20:11 Dose: 80 mg Clopidogrel Bisulfate (Clopidogrel Bisulfate 75 Mg Tab) 75 mg PO QAM [facility] Stop: 08/12/22 08:59 Last Admin: 07/14/22 08:09 Dose: 75 mg Cyanocobalamin (Cyanocobalamin (B-12) 500 Mcg Tablet) 1,000 mcg PO QAM [facility] Stop: 08/12/22 08:59 Last Admin: 07/14/22 08:09 Dose: 1,000 mcg Dextrose (Dextrose 50% 50 Ml Syringe) 25 - 50 ml IV UD PRN; Protocol PRN Reason: Hypoglycemia Protocol Stop: 08/11/22 15:47 Docusate Sodium (Docusate Sodium 100 Mg Cap) 100 mg PO BID PRN PRN Reason: Constipation Stop: 08/11/22 16:16 Fluticasone Propionate (Fluticasone Propionate Na Spr 16 Gm Btl) 2 sprays JAQUELIN DAILY [facility] Stop: 08/12/22 08:59 Last Admin: 07/14/22 08:09 Dose: 2 sprays Furosemide (Furosemide Inj 20 Mg/2 Ml Vial) 20 mg IV DAILY [facility] Stop: 08/12/22 08:59 Last Admin: 07/14/22 08:09 Dose: 20 mg Gabapentin (Gabapentin 300 Mg Cap) 300 mg PO QAM [facility] Stop: 08/12/22 08:59 Last Admin: 07/14/22 08:06 Dose: 300 mg Gabapentin (Gabapentin 600 Mg Tab) 600 mg PO HS [facility] Stop: 08/11/22 20:59 Last Admin: 07/13/22 20:13 Dose: 600 mg Glucagon (Glucagon For Inj 1 Mg Vial) 1 mg SQ UD PRN; Protocol PRN Reason: Hypoglycemia Protocol Stop: 08/11/22 15:47 Glucose (Glucose 40% Gel 15 Gm Tube) 15 - 30 gm PO UD PRN; Protocol PRN Reason: Hypoglycemia Protocol Stop: 08/11/22 15:47 Glucose (Glucose 10 Tab/Tube) 4 - 8 tab PO UD PRN; Protocol PRN Reason: Hypoglycemia Treatment Stop: 08/11/22 15:47 Ceftriaxone Sodium 1,000 mg/ (Dextrose) 60 mls @ 100 mls/hr IV Q24H [facility]; Protocol Stop: 07/24/22 07:44 Last Infusion: 07/14/22 08:27 Dose: Infused Insulin Aspart (Insulin Aspart Per Unit) 0 units SC ACHS [facility] Stop: 08/11/22 16:29 Last Admin: 07/14/22 08:05 Dose: 4 units Isosorbide Mononitrate (Isosorbide [place] Extended Rel 60 Mg Tabcr) 120 mg PO DAILY [facility] Stop: 08/12/22 08:59 Last Admin: 07/14/22 08:06 Dose: 120 mg Levothyroxine Sodium (Levothyroxine Sodium 25 Mcg Tablet) 25 mcg PO DAILYBB [facility] Stop: 08/12/22 06:29 Last Admin: 07/14/22 05:37 Dose: 25 mcg Melatonin (Melatonin 3 Mg Tab) 3 mg PO HS PRN PRN Reason: Sleep Stop: 08/12/22 00:44 Last Admin: 07/13/22 23:17 Dose: 3 mg Metoprolol Succinate (Metoprolol Succ 50mg Ext Rel Tab) 100 mg PO QPM [facility] Stop: 08/12/22 20:59 Last Admin: 07/13/22 20:15 Dose: 100 mg Metoprolol Succinate (Metoprolol Succ 50mg Ext Rel Tab) 150 mg PO QAM [facility] Stop: 08/13/22 08:59 Last Admin: 07/14/22 08:07 Dose: 150 mg Miscellaneous (Order Awaiting Action [Bimatoprost [Lumigan] 0.01 % Drops)]) 1 each N/A QS [facility] Stop: 08/12/22 00:00 Last Admin: 07/14/22 08:06 Dose: Not Given Miscellaneous (Order Awaiting Action [Netarsudil [Rhopressa] 0.02 % Drops)]) 1 each N/A QS [facility] Stop: 08/12/22 00:00 Last Admin: 07/14/22 08:06 Dose: Not Given Miscellaneous (Carbohydrates For Hypoglycemia ) 15 - 30 gm PO UD PRN PRN Reason: Hypoglycemia Protocol Stop: 08/11/22 15:47 Montelukast Sodium (Montelukast Sodium 10 Mg Tablet) 10 mg PO DAILY [facility] Stop: 08/12/22 08:59 Last Admin: 07/14/22 08:08 Dose: 10 mg Multivitamins (Multivitamin Tab) 1 tab PO QAM [facility] Stop: 08/12/22 08:59 Last Admin: 07/14/22 08:08 Dose: 1 tab Nitroglycerin (Nitroglycerin Sl 0.4 Mg/Tab Tab) 0.4 mg SL Q5M PRN PRN Reason: Angina Ondansetron HCl (Ondansetron Inj 2 Mg/Ml 2 Ml Vial) 4 mg IV Q6H PRN PRN Reason: Nausea Stop: 08/11/22 15:24 Pantoprazole Sodium (Pantoprazole 40 Mg Tab) 40 mg PO DAILY [facility] Stop: 08/12/22 08:59 Last Admin: 07/14/22 08:09 Dose: 40 mg Polyethylene Glycol (Polyethylene (Miralax) 17 Gm Pack) 17 gm PO DAILY PRN PRN Reason: Constipation Stop: 08/11/22 15:24 Ropinirole HCl (Ropinirole Hcl 0.25 Mg Tablet) 0.25 mg PO HS [facility] Stop: 08/11/22 20:59 Last Admin: 07/13/22 20:13 Dose: 0.25 mg Warfarin Sodium (Warfarin Sod 5 Mg Tab) 5 mg PO DAILY@1600 [facility] Stop: 08/12/22 15:59 Last Admin: 07/13/22 20:21 Dose: 5 mg
--- NOTE | 2022-07-14 11:29 | XRay Report ---
SINGLE VIEW CHEST CLINICAL HISTORY: Congestive heart failure. FINDINGS: An AP, portable, upright chest radiograph is compared to study dated 07/12/2022. A 2-lead c ardiac pacemaker is unchanged in position and partially obscures left mid chest. There is evidence of previous cardiac valve surgery. The heart is enlarged noting atherosclerotic calcification of the th oracic aorta. There is mild pulmonary vascular congestion. Chronic interstitial thickening is somewha t a previous. There are left larger than right pleural effusions with dependent consolidation. No pne umothorax is seen. The skeletal structures are osteopenic. The bony thorax is grossly intact. Fusion hardware is noted in the lumbar spine. Arthritic change is seen in the shoulders. IMPRESSION: 1. Cardiomegaly and cardiac pacemaker with mild pulmonary vascular congestion. 2. Left larger than right pleural effusions with dependent consolidation.. ACT 112: Negative or not required by law. Electronically signed by: Zachary Ignacio M.D. 07/14/2022 11:27 AM
--- NOTE | 2022-07-14 15:11 | Hospitalist Progress Note ---
Date of Service July 14, 2022 Assessment & Plan (1) Hypoxia: (2) Shortness of breath: (3) Decompensated heart failure: (4) Tachy-tanner syndrome: (5) S/P placement of cardiac pacemaker: (6) CAD (coronary artery disease): (7) S/P TAVR (transcatheter aortic valve replacement): (8) Afib: (9) Chronic anticoagulation: (10) Hypertension: (11) Carotid stenosis: (12) Diabetes mellitus, type II: (13) Hypothyroidism: (14) Restless leg syndrome: Plan This is an 81 yo F with extensive PMH of HFpEF (January 2021 TTE EF 60%), aortic stenosis s/p TAVR, paravalvular aortic prosthesis regurgitation, tachy tanner syndrome s/p PM placement Aug 2021, CAD s/p stents, carotid stenosis s/p bilateral endarterectomies, PVD, PAF on coumadin, HTN, HLD, pulmonary, HTN, DM2, hypothyroidism, chronic anemia, history of laryngospasm and other medical problems as above who presents with progressive shortness of breath over the past 2 weeks and was found to have decompensated heart failure. Acute on chronic heart failure with reduced ejection fraction and diastolic dysfunction: Hypoxia Shortness of breath Present on admission with worsening shortness of breath CXR with mild pulmonary edema with small left and trace right pleural effusions and associated bibasilar opacities and cardiomegaly COVID 19, Flu, RSV and procalcitonin negative. High-sensitivity troponin 25.6, BNP 1936 ECHO showed large size apical, septal, lateral and inferior wall motion abnorm ality. Left ventricular systolic function is mild to moderately reduced with ejection fraction 35 to 40%. currently on supplement oxygen with 1L [place] Cardiology on board Continue Lasix 20mg IV daily Continue monitor I/O Consider two-step exercise before discharging Will give an additional lasix 20mg x1 later Tachy tanner syndrome s/p PM placement Aug 2021 Pacemaker interrogated and functioning properly Cardizem all discontinued by cardiology Metoprolol increased 150 mg in the morning and 100 mg at night Continue monitor closely UTI Urine cx grew gram negative bacilli Starting on IV rocephin Will follow urine sensitivity Atrial fibrillation Rate control with [id number] in AM and 100mg HS Coumadin resumed with INR of 1.9 today Diltiazem discontinued by cardiology Continue monitor PT/INR CAD H/o stents x4 in 2019, class 3 angina pectoris with low level exertional to lerance Continue statin, plavix, beta deny, Imdur Carotid stenosis H/o bilateral endarterectomy DM II Most recent hemoglobin A1c 8.3 on 04/12/22 Continue to hold diabetes medication Continue insulin sliding scale while in-patient Continue monitor BS Hypothyroidism Continue levothyroxine check TSH in am RLS Continue ropinirole DVT Ppx: coumadin Code status: FULL PCP: Lorelei Disposition We will discharge once medically stable Admission and Anticipated Discharge Date Admission Date: July 12, 2022 Subjective Pt was seen and examined for follow of SOB Sitting in chair with no acute distress She said that she slept better last night She continues to require oxygen supplement Denies any chest pain, palpitation, dizziness and SOB Review of Systems Review of Systems: All systems reviewed & are unremarkable except as noted in HPI & below Physical Exam Physical Exam: General- No acute distress Head- atraumatic Eyes- PERRL, EOMI, ENT- oropharynx clear Neck- supple, no JVD Lungs- +diminished BS Heart- regular rhythm; +murmur Abdomen- normal bowel sounds, soft, nontender Extremities- no calf tenderness, +edema Neuro- alert, oriented x 3; PERRL, EOMI; no facial palsy; no dysarthria Skin- warm & dry Results & Data Results & Data ([facility]) Vital Signs (Past 12 Hours) Vital Signs Temp Pulse Pulse Resp BP Pulse Ox O2 Del Method 07/14/22 11:37 97 07/14/22 11:24 36.6 C 70 19 96/58 L 98 Nasal Cannula 07/14/22 09:49 61 07/14/22 09:38 Nasal Cannula 07/14/22 07:25 36.6 C 64 19 109/62 93 Room Air 07/14/22 03:39 36.7 C 65 17 144/77 H 94 Nasal Cannula O2 Flow Rate 07/14/22 11:37 07/14/22 11:24 2 07/14/22 09:49 07/14/22 09:38 2 07/14/22 07:25 07/14/22 03:39 1
[2022-07-14] MEDS: WARFARIN SOD 5 MG TAB PO SCH (15:31)
[2022-07-14] MEDS ORDERED: FUROSEMIDE INJ 20 MG/2 ML VIAL IV ONE (17:00)
[2022-07-14] MEDS: DOCUSATE SODIUM 100 MG CAP PO PRN (19:30)
[2022-07-14] MEDS: rOPINIRole HCL 0.25 MG TABLET PO SCH (20:22)
[2022-07-14] MEDS: GABAPENTIN 600 MG TAB PO SCH (20:22)
[2022-07-14] MEDS: ATORVASTATIN 40 MG TAB PO SCH (20:22)
[2022-07-15] MEDS: LEVOTHYROXINE SODIUM 25 MCG TABLET PO SCH (06:02)
[2022-07-15 07:18] LABS: INR 2.3 (0.9-1.1); Prothrombin Time 23.1 Seconds (9.0-12.0)
[2022-07-15] MEDS: DOCUSATE SODIUM 100 MG CAP PO PRN (07:54)
[2022-07-15] MEDS: MONTELUKAST SODIUM 10 MG TABLET PO SCH (07:58)
[2022-07-15] MEDS: ISOSORBIDE MONO EXTENDED REL 60 MG TABCR PO SCH (07:58)
[2022-07-15] MEDS: METOPROLOL SUCC 50MG EXT REL TAB PO SCH ×2 (07:58→20:04)
[2022-07-15] MEDS: CYANOCOBALAMIN (B-12) 500 MCG TABLET PO SCH (07:59)
[2022-07-15] MEDS: PANTOprazole 40 MG TAB PO SCH (07:59)
[2022-07-15] MEDS: GABAPENTIN 300 MG CAP PO SCH (07:59)
[2022-07-15] MEDS: MULTIVITAMIN TAB PO SCH (08:00)
[2022-07-15] MEDS: FLUTICASONE PROPIONATE NA SPR 16 GM BTL NAE SCH (08:00)
[2022-07-15] MEDS: CLOPIDOGREL BISULFATE 75 MG TAB PO SCH (08:00)
[2022-07-15] MEDS: FUROSEMIDE INJ 20 MG/2 ML VIAL IV SCH ×2 (08:07→14:52)
[2022-07-15] MEDS: cefTRIAXone SODIUM 1,000 MG in DEXTROSE 5% 50 ML IV SCH (08:10)
[2022-07-15] MEDS: INSULIN ASPART PER UNIT SC SCH ×4 (08:22→20:12)
[2022-07-15 10:01] LABS: BUN Creatinine Ratio 26.9 (10-20); Calcium 8.7 mg/dl (8.5-10.1); Creatinine Clr Calc Pharmacy 40.3 ml/min; Est GFR (African American) 57.9 ml/min; Magnesium 1.3 mg/dl (1.7-2.4); Potassium 4.2 mmol/L (3.5-5.1)
[2022-07-15] MEDS: LANTUS PER UNIT CHARGE SQ SCH ×2 (10:02→20:12)
--- NOTE | 2022-07-15 10:42 | Cardiology Progress Note ---
Date of Service July 15, 2022 Assessment & Plan (1) Acute on chronic heart failure with reduced ejection fraction and diastolic dysfunction: (2) Mitral stenosis: (3) History of transcatheter aortic valve replacement (TAVR): (4) Coronary artery disease with angina pectoris: (5) S/P placement of cardiac pacemaker: Plan Patient with complicated cardiac history, outlined in admission H&P Admitted for worsening dyspnea/hypoxia, with symptoms consistent with acute on chronic HFrEF Echo demonstrating reduced LVEF at 40% and severe pulm hypertension, moderate MS. Pulm vascular congestion and small b/l pleural effusions on chest xray. Started on IV lasix. Good urine outputs since admission. Furosemide increased to 20 mg BID yesterday. Stable renal function this morning. Continue gentle, low dose diuresis Monitor I+O's. Daily weight with standing scale. Diltiazem was recently initiated as outpatient to aid with HR and angina. This may (or may not) have contributed to her worsening volume status. Diltiazem discontinued. metoprolol increased to 150 mg in AM And 100 mg in PM. Echo updated this admission demonstrating interval decline in LV function since last evaluation (January 2021) with now moderate LV dysfunction, moderate mitral stenosis and severe pulm hypertension. Likely needs higher dose diuretic as outpatient. Only takes furosemide 20 mg - 3 tabs per week. Patient not on ERNST/ARB due to history of hyperkalemia. will also avoid spironolactone She has a history of AV chintan ablation, chronic pacing. Appropriate function per device interrogation. Rate response activities have been turned off. Initially this was thought to be contributing to her worsening dyspnea/angina, but unlikely. She has chronic dyspnea and chest pain consistent with angina. her HS troponin was not significantly elevated on admission and flat. Symptoms are not indic ative of ACS. She has a history of complex coronary artery disease with failed LAD intervention resulting in dissection. Ongoing medical management has been advised, unless symptoms of acute ACS are present. Continue diuretics today. Wean O2 as tolerated. May need 2 Step prior to discharge. Recommend PT/OT Consider adding Ranexa for anti anginal support as well if needed Case discussed with Dr. Hamilton. Admission and Anticipated Discharge Date Admission Date: July 12, 2022 Supervising Physician Co-Signing Physician Notes I have seen and examined the patient. I reviewed the case with Ms. Evans as well as medical record. I agree with the plan as outlined above. Subjective Patient resting comfortably in chair. She reports interval improvement in her dyspnea/SOB each day. Much improved from admission. Still mildly hypoxic with small pleural effusions. Tolerating diuretics. Good urine outputs. Slept better. No "wheezing" at night. No orthopnea, PND. Edema remains present but improving. Review of Systems Review of Systems: All systems reviewed & are unremarkable except as noted in HPI & below Physical Exam Constitutional: WD/WN, vitals as above no acute distress Neck: trachea midline, no thyromegaly Respiratory: no respiratory distress Auscultation: + diminished lung sounds (b/l with faint scattered wheeze) Cardiovascular: Rate/Rhythm: regular rate and regular rhythm Heart Sounds: + murmur (II/ systolic murmur) Vessels: no JVD (in the upright position (examined in chair)) Extremities: + edema (1 + pretibial edema with chronic stasis changes) Gastrointestinal (Abdomen): normal bowel sounds, soft, nontender, no hepatosplenomegaly Skin: no rashes, warm and dry Neurologic: PERRL, EOMI, accommodation nl, no face palsy, no dysarthria Results & Data ([facility]) Vital Signs (Past 12 Hours) Vital Signs Temp Pulse Pulse Resp BP Pulse Ox O2 Del Method 07/15/22 07:30 Nasal Cannula 07/15/22 07:40 69 07/15/22 07:02 36.6 C 76 16 161/75 H 98 Nasal Cannula 07/15/22 04:56 36.5 C 72 16 171/78 H 98 Nasal Cannula 07/14/22 23:36 60 07/14/22 22:49 36.8 C 65 16 117/68 98 Nasal Cannula O2 Flow Rate 07/15/22 07:30 07/15/22 07:40 07/15/22 07:02 1.0 07/15/22 04:56 1.0 07/14/22 23:36 07/14/22 22:49 1.0 Laboratory Results Coagulation 07/15/22 Range/Units 05:43 PT 23.1 H (9.0-12.0) Seconds Comprehensive Metabolic Panel 07/15/22 Range/Units 05:45 Sodium 140 (136-145) mmol/L Potassium 4.2 (3.5-5.1) mmol/L Chloride 99 (98-107) mmol/L Carbon Dioxide 36 H (21-32) mmol/L BUN 28 H (6-23) mg/dl Creatinine 1.04 (0.6-1.2) mg/dl Glucose 199 H (70-99(Fasting)) mg/dl Calcium 8.7 (8.5-10.1) mg/dl Intake and Output 07/14/22 07/15/22 07/15/22 22:59 06:59 14:59 Intake Total 695 / 755 60 / 60 Output Total 1550 / 2101 551 / 2101 Balance -855 / -1346 -551 / -1346 60 / 60 Intake: IV 60 / 60 cefTRIAXone SODIUM 1,000 mg In 60 / 60 Dextrose 5% 50 ml @ 100 mls/hr IV Q24H [facility] Rx#:[id number] Oral 695 / 695 Output: Urine Amount (Catheter) 1550 / 2100 550 / 2100 Joyner/Indwelling 1550 / 2100 550 / 2100 # Bowel Movements Other: Other Intake Source Sips Weight 74.5 kg Weight Measurement Method Standing Scale Diagnostic Findings Telemetry reviewed: chronic pacing in the 60-80 bpm range (history of AV chintan ablation) Medications Administered Current Inpatient Medications Acetaminophen (Acetaminophen 325 Mg Tab) 650 mg PO Q4H PRN PRN Reason: Pain or Fever Stop: 08/11/22 15:24 Albuterol (Albuterol Hfa 8 Gm Inhaler) 2 puffs INH Q4 PRN PRN Reason: Wheezing Stop: 08/11/22 15:24 Atorvastatin Calcium (Atorvastatin 40 Mg Tab) 80 mg PO [facility] Stop: 08/11/22 20:59 Last Admin: 07/14/22 20:22 Dose: 80 mg Clopidogrel Bisulfate (Clopidogrel Bisulfate 75 Mg Tab) 75 mg PO QAM [facility] Stop: 08/12/22 08:59 Last Admin: 07/15/22 08:00 Dose: 75 mg Cyanocobalamin (Cyanocobalamin (B-12) 500 Mcg Tablet) 1,000 mcg PO QAM PRIMO Stop: 08/12/22 08:59 Last Admin: 07/15/22 07:59 Dose: 1,000 mcg Dextrose (Dextrose 50% 50 Ml Syringe) 25 - 50 ml IV UD PRN; Protocol PRN Reason: Hypoglycemia Protocol Stop: 08/11/22 15:47 Docusate Sodium (Docusate Sodium 100 Mg Cap) 100 mg PO BID PRN PRN Reason: Constipation Stop: 08/11/22 16:16 Last Admin: 07/15/22 07:54 Dose: 100 mg Fluticasone Propionate (Fluticasone Propionate Na Spr 16 Gm Btl) 2 sprays JAQUELIN DAILY [facility] Stop: 08/12/22 08:59 Last Admin: 07/15/22 08:00 Dose: 2 sprays Furosemide (Furosemide Inj 20 Mg/2 Ml Vial) 20 mg IV [id number] [facility] Stop: 08/14/22 13:59 Gabapentin (Gabapentin 300 Mg Cap) 300 mg PO QAM [facility] Stop: 08/12/22 08:59 Last Admin: 07/15/22 07:59 Dose: 300 mg Gabapentin (Gabapentin 600 Mg Tab) 600 mg PO HS [facility] Stop: 08/11/22 20:59 Last Admin: 07/14/22 20:22 Dose: 600 mg Glucagon (Glucagon For Inj 1 Mg Vial) 1 mg SQ UD PRN; Protocol PRN Reason: Hypoglycemia Protocol Stop: 08/11/22 15:47 Glucose (Glucose 40% Gel 15 Gm Tube) 15 - 30 gm PO UD PRN; Protocol PRN Reason: Hypoglycemia Protocol Stop: 08/11/22 15:47 Glucose (Glucose 10 Tab/Tube) 4 - 8 tab PO UD PRN; Protocol PRN Reason: Hypoglycemia Treatment Stop: 08/11/22 15:47 Ceftriaxone Sodium 1,000 mg/ (Dextrose) 60 mls @ 100 mls/hr IV Q24H [facility]; Protocol Stop: 07/24/22 07:44 Last Infusion: 07/15/22 09:00 Dose: Infused Insulin Aspart (Insulin Aspart Per Unit) 0 units SC ACHS [facility] Stop: 08/11/22 16:29 Last Admin: 07/15/22 08:22 Dose: 7 units Insulin Glargine (Lantus Per Unit Charge) 10 units SQ BID [facility] Stop: 08/14/22 09:29 Last Admin: 07/15/22 10:02 Dose: 10 units Isosorbide Mononitrate (Isosorbide [place] Extended Rel 60 Mg Tabcr) 120 mg PO DAILY [facility] Stop: 08/12/22 08:59 Last Admin: 07/15/22 07:58 Dose: 120 mg Levothyroxine Sodium (Levothyroxine Sodium 25 Mcg Tablet) 25 mcg PO DAILYBB [facility] Stop: 08/12/22 06:29 Last Admin: 07/15/22 06:02 Dose: 25 mcg Magnesium Oxide (Magnesium Oxide 400 Mg Tab) 400 mg PO QAM [facility] Stop: 08/14/22 10:44 Melatonin (Melatonin 3 Mg Tab) 3 mg PO HS PRN PRN Reason: Sleep Stop: 08/12/22 00:44 Last Admin: 07/13/22 23:17 Dose: 3 mg Metoprolol Succinate (Metoprolol Succ 50mg Ext Rel Tab) 100 mg PO QPM [facility] Stop: 08/12/22 20:59 Last Admin: 07/14/22 20:22 Dose: 100 mg Metoprolol Succinate (Metoprolol Succ 50mg Ext Rel Tab) 150 mg PO QAM [facility] Stop: 08/13/22 08:59 Last Admin: 07/15/22 07:58 Dose: 150 mg Miscellaneous (Order Awaiting Action [Bimatoprost [Lumigan] 0.01 % Drops)]) 1 each N/A QS [facility] Stop: 08/12/22 00:00 Last Admin: 07/15/22 07:48 Dose: Not Given Miscellaneous (Order Awaiting Action [Netarsudil [Rhopressa] 0.02 % Drops)]) 1 each N/A QS [facility] Stop: 08/12/22 00:00 Last Admin: 07/15/22 07:49 Dose: Not Given Miscellaneous (Carbohydrates For Hypoglycemia ) 15 - 30 gm PO UD PRN PRN Reason: Hypoglycemia Protocol Stop: 08/11/22 15:47 Montelukast Sodium (Montelukast Sodium 10 Mg Tablet) 10 mg PO DAILY [facility] Stop: 08/12/22 08:59 Last Admin: 07/15/22 07:58 Dose: 10 mg Multivitamins (Multivitamin Tab) 1 tab PO QAM [facility] Stop: 08/12/22 08:59 Last Admin: 07/15/22 08:00 Dose: 1 tab Nitroglycerin (Nitroglycerin Sl 0.4 Mg/Tab Tab) 0.4 mg SL Q5M PRN PRN Reason: Angina Ondansetron HCl (Ondansetron Inj 2 Mg/Ml 2 Ml Vial) 4 mg IV Q6H PRN PRN Reason: Nausea Stop: 12/15/22 15:24 Pantoprazole Sodium (Pantoprazole 40 Mg Tab) 40 mg PO DAILY [facility] Stop: 08/12/22 08:59 Last Admin: 07/15/22 07:59 Dose: 40 mg Polyethylene Glycol (Polyethylene (Miralax) 17 Gm Pack) 17 gm PO DAILY PRN PRN Reason: Constipation Stop: 08/11/22 15:24 Ropinirole HCl (Ropinirole Hcl 0.25 Mg Tablet) 0.25 mg PO HS [facility] Stop: 08/11/22 20:59 Last Admin: 07/14/22 20:22 Dose: 0.25 mg Warfarin Sodium (Warfarin Sod 5 Mg Tab) 5 mg PO DAILY@1600 [facility] Stop: 08/12/22 15:59 Last Admin: 07/14/22 15:31 Dose: 5 mg
[2022-07-15] MEDS: MAGNESIUM OXIDE 400 MG TAB PO SCH (12:02)
--- NOTE | 2022-07-15 15:15 | Hospitalist Progress Note ---
Date of Service July 15, 2022 Assessment & Plan (1) Hypoxia: (2) Shortness of breath: (3) Decompensated heart failure: (4) Tachy-tanner syndrome: (5) S/P placement of cardiac pacemaker: (6) CAD (coronary artery disease): (7) S/P TAVR (transcatheter aortic valve replacement): (8) Afib: (9) Chronic anticoagulation: (10) Hypertension: (11) Carotid stenosis: (12) Diabetes mellitus, type II: (13) Hypothyroidism: (14) Restless leg syndrome: Plan This is an 81 yo F with extensive PMH of HFpEF (January 2021 TTE EF 60%), aortic stenosis s/p TAVR, paravalvular aortic prosthesis regurgitation, tachy tanner syndrome s/p PM placement Aug 2021, CAD s/p stents, carotid stenosis s/p bilateral endarterectomies, PVD, PAF on coumadin, HTN, HLD, pulmonary, HTN, DM2, hypothyroidism, chronic anemia, history of laryngospasm and other medical problems as above who presents with progressive shortness of breath over the past 2 weeks and was found to have decompensated heart failure. Acute on chronic heart failure with reduced ejection fraction and diastolic dysfunction: Hypoxia Shortness of breath Present on admission with worsening shortness of breath CXR with mild pulmonary edema with small left and trace right pleural effusions and associated bibasilar opacities and cardiomegaly COVID 19, Flu, RSV and procalcitonin negative. High-sensitivity troponin 25.6, BNP 1936 ECHO showed large size apical, septal, lateral and inferior wall motion abnorm ality. Left ventricular systolic function is mild to moderately reduced with ejection fraction 35 to 40%. currently on supplement oxygen with 1L CO Cardiology on board Continue Lasix 20mg IV daily Continue monitor I/O Consider two-step exercise before discharging Clinically improved Tachy tanner syndrome s/p PM placement Aug 2021 Pacemaker interrogated and functioning properly Cardizem all discontinued by cardiology Metoprolol increased 150 mg in the morning and 100 mg at night Continue monitor closely UTI Urine cx grew gram negative bacilli - Ecoli Currently on IV Rocephin Will transition to PO Keflex on discharge Electrolytes Imbalance Mg 1.3 today Mg replaced Continue monitor Atrial fibrillation Rate control with [id number] in AM and 100mg HS Coumadin resumed with INR of 2.3 today Diltiazem discontinued by cardiology Continue monitor PT/INR CAD H/o stents x4 in 2019, class 3 angina pectoris with low level exertional tolerance Continue statin, plavix, beta deny, Imdur Diabetes Most recent Hba1c 8.3 on 07/13/22 BS has been running high Continue lantus and insulin sliding scale Continue monitor BS Carotid stenosis H/o bilateral endarterectomy DM II Most recent hemoglobin A1c 8.3 on 04/12/22 Continue to hold diabetes medication Continue insulin sliding scale while in-patient Continue monitor BS Hypothyroidism Continue levothyroxine check TSH in am RLS Continue ropinirole DVT Ppx: coumadin with INR 2.3 Code status: FULL PCP: Lorelei Disposition We will discharge once medically stable Admission and Anticipated Discharge Date Admission Date: July 12, 2022 Subjective Pt was seen and examined for follow of SOB Sitting in chair with no acute distress She said that she slept better last night She said that her breathing feels much better Denies any chest pain, palpitation, dizziness and SOB Review of Systems Review of Systems: All systems reviewed & are unremarkable except as noted in Subjective Physical Exam Physical Exam: General- No acute distress Head- atraumatic Eyes- PERRL, EOMI, ENT- oropharynx clear Neck- supple, no JVD Lungs- +diminished BS Heart- regular rhythm; +murmur Abdomen- normal bowel sounds, soft, nontender Extremities- no calf tenderness, +edema Neuro- alert, oriented x 3; PERRL, EOMI; no facial palsy; no dysarthria Skin- warm & dry Results & Data Results & Data ([facility]) Vital Signs (Past 12 Hours) Vital Signs Temp Pulse Pulse Resp BP Pulse Ox O2 Del Method 07/15/22 11:30 36.5 C 74 17 98/65 L 93 Room Air 07/15/22 07:30 Nasal Cannula 07/15/22 07:40 69 07/15/22 07:02 36.6 C 76 16 161/75 H 98 Nasal Cannula 07/15/22 04:56 36.5 C 72 16 171/78 H 98 Nasal Cannula O2 Flow Rate 07/15/22 11:30 07/15/22 07:30 07/15/22 07:40 07/15/22 07:02 1.0 07/15/22 04:56 1.0
[2022-07-15] MEDS: MAGNESIUM SULFATE / D5W 1 GM/100 ML BAG IV SCH ×2 (16:12→17:47)
[2022-07-15] MEDS: WARFARIN SOD 5 MG TAB PO SCH (16:44)
[2022-07-15] MEDS: GABAPENTIN 600 MG TAB PO SCH (20:04)
[2022-07-15] MEDS: ATORVASTATIN 40 MG TAB PO SCH (20:04)
[2022-07-15] MEDS: rOPINIRole HCL 0.25 MG TABLET PO SCH (20:04)
[2022-07-15] MEDS ORDERED: NETARSUDIL MESYLATE 37 DROPS/2.5 ML BTL OPB SCH (21:00)
[2022-07-16] MEDS: LEVOTHYROXINE SODIUM 25 MCG TABLET PO SCH (06:16)
[2022-07-16 06:31] LABS: INR 1.7 (0.9-1.1)
[2022-07-16 06:53] LABS: BUN Creatinine Ratio 29.9 (10-20); Calcium 8.7 mg/dl (8.5-10.1); Creatinine Clr Calc Pharmacy 43.2 ml/min; Est GFR (Non-African American) 54.4 ml/min; Magnesium 1.9 mg/dl (1.7-2.4); Phosphorus 3.5 mg/dl (2.5-4.9); Potassium 4.4 mmol/L (3.5-5.1)
[2022-07-16] MEDS: FUROSEMIDE INJ 20 MG/2 ML VIAL IV SCH ×2 (06:54→15:28)
[2022-07-16] MEDS: cefTRIAXone SODIUM 1,000 MG in DEXTROSE 5% 50 ML IV SCH (08:39)
[2022-07-16] MEDS: MULTIVITAMIN TAB PO SCH (08:40)
[2022-07-16] MEDS: CYANOCOBALAMIN (B-12) 500 MCG TABLET PO SCH (08:40)
[2022-07-16] MEDS: MONTELUKAST SODIUM 10 MG TABLET PO SCH (08:40)
[2022-07-16] MEDS: ISOSORBIDE MONO EXTENDED REL 60 MG TABCR PO SCH (08:40)
[2022-07-16] MEDS: CLOPIDOGREL BISULFATE 75 MG TAB PO SCH (08:40)
[2022-07-16] MEDS: GABAPENTIN 300 MG CAP PO SCH (08:40)
[2022-07-16] MEDS: FLUTICASONE PROPIONATE NA SPR 16 GM BTL NAE SCH (08:41)
[2022-07-16] MEDS: MAGNESIUM OXIDE 400 MG TAB PO SCH (08:41)
[2022-07-16] MEDS: METOPROLOL SUCC 50MG EXT REL TAB PO SCH ×2 (08:41→20:03)
[2022-07-16] MEDS: PANTOprazole 40 MG TAB PO SCH (08:41)
[2022-07-16] MEDS: INSULIN ASPART PER UNIT SC SCH ×4 (08:51→20:09)
[2022-07-16] MEDS: LANTUS PER UNIT CHARGE SQ SCH ×2 (08:51→20:08)
[2022-07-16] MEDS ORDERED: RANOLAZINE 500 MG ER TAB PO ONE (13:39)
--- NOTE | 2022-07-16 13:40 | Cardiology Progress Note ---
Date of Service July 16, 2022 Assessment & Plan (1) Acute on chronic heart failure with reduced ejection fraction and diastolic dysfunction: (2) Mitral stenosis: (3) History of transcatheter aortic valve replacement (TAVR): (4) Coronary artery disease with angina pectoris: (5) S/P placement of cardiac pacemaker: Plan Admitted for worsening dyspnea/hypoxia, with symptoms consistent with acute on chronic HFrEF Echo demonstrating reduced LVEF at 40% and severe pulm hypertension, moderate MS. Diltiazem discontinued. metoprolol increased to 150 mg in AM And 100 mg in PM. Add Ranexa DC Joyner after 1400 IV furosemide dose. Start furosemide 20 mg PO daily tomorrow. INR down to 1.7 today. Increase coumadin dose to 7.5 mg for today, then 5 mg again tomorrow. Admission and Anticipated Discharge Date Admission Date: July 12, 2022 Subjective Patient seen in cardiology follow-up. She notes that she presented to the hospital on 07/12/2022 with complaints of exertional shortness of breath, neck pain/tightness, relieved with sublingual nitroglycerin at home. The symptoms have since resolved. Physical Exam Constitutional: WD/WN, vitals as above no acute distress Neck: trachea midline, no thyromegaly Respiratory: no respiratory distress Auscultation: + diminished lung sounds (b/l with faint scattered wheeze) Cardiovascular: Rate/Rhythm: regular rate and regular rhythm Heart Sounds: + murmur (II/ systolic murmur) Vessels: no JVD (in the upright position (examined in chair)) Extremities: + edema (1 + pretibial edema with chronic stasis changes) Gastrointestinal (Abdomen): normal bowel sounds, soft, nontender, no hepatosplenomegaly Skin: no rashes, warm and dry Neurologic: PERRL, EOMI, accommodation nl, no face palsy, no dysarthria Results & Data ([facility]) Vital Signs (Past 12 Hours) Vital Signs Temp Pulse Pulse Resp BP Pulse Ox O2 Del Method 07/16/22 11:15 36.6 C 74 16 94/63 L 92 Room Air 07/16/22 09:31 76 07/16/22 08:04 36.8 C 73 17 131/78 93 Room Air 07/16/22 03:24 36.3 C L 67 18 147/74 H 96 Room Air Laboratory Results Coagulation 07/16/22 Range/Units 05:54 PT 18.0 H (9.0-12.0) Seconds Comprehensive Metabolic Panel 07/16/22 Range/Units 05:54 Sodium 137 (136-145) mmol/L Potassium 4.4 (3.5-5.1) mmol/L Chloride 98 (98-107) mmol/L Carbon Dioxide 35 H (21-32) mmol/L BUN 29 H (6-23) mg/dl Creatinine 0.97 (0.6-1.2) mg/dl Glucose 196 H (70-99(Fasting)) mg/dl Calcium 8.7 (8.5-10.1) mg/dl Diagnostic Findings EKG performed 07/12/2022, sinus rhythm a sensed, ventricular paced, 87 bpm.
[2022-07-16] MEDS: WARFARIN SOD 5 MG TAB PO SCH (15:28)
[2022-07-16] MEDS ORDERED: WARFARIN SOD 2.5 MG TAB PO ONE (16:00)
--- NOTE | 2022-07-16 18:19 | Hospitalist Progress Note ---
Date of Service July 16, 2022 Assessment & Plan (1) Hypoxia: (2) Shortness of breath: (3) Decompensated heart failure: (4) Tachy-tanner syndrome: (5) S/P placement of cardiac pacemaker: (6) CAD (coronary artery disease): (7) S/P TAVR (transcatheter aortic valve replacement): (8) Afib: (9) Chronic anticoagulation: (10) Hypertension: (11) Carotid stenosis: (12) Diabetes mellitus, type II: (13) Hypothyroidism: (14) Restless leg syndrome: Plan This is an 81 yo F with extensive PMH of HFpEF (January 2021 TTE EF 60%), aortic stenosis s/p TAVR, paravalvular aortic prosthesis regurgitation, tachy tanner syndrome s/p PM placement Aug 2021, CAD s/p stents, carotid stenosis s/p bilateral endarterectomies, PVD, PAF on coumadin, HTN, HLD, pulmonary, HTN, DM2, hypothyroidism, chronic anemia, history of laryngospasm and other medical problems as above who presents with progressive shortness of breath over the past 2 weeks and was found to have decompensated heart failure. Acute on chronic heart failure with reduced ejection fraction and diastolic dysfunction: Hypoxia Shortness of breath Present on admission with worsening shortness of breath CXR with mild pulmonary edema with small left and trace right pleural effusions and associated bibasilar opacities and cardiomegaly COVID 19, Flu, RSV and procalcitonin negative. High-sensitivity troponin 25.6, BNP 1936 ECHO showed large size apical, septal, lateral and inferior wall motion abnorm ality. Left ventricular systolic function is mild to moderately reduced with ejection fraction 35 to 40%. Currently saturated well on RA Cardiology on board IV lasix will stopped after afternoon dose Plan to transition to PO lasix tomorrow Continue monitor I/O Consider two-step exercise before discharging Clinically improved Tachy tanner syndrome s/p PM placement Aug 2021 Pacemaker interrogated and functioning properly Cardizem all discontinued by cardiology Metoprolol increased 150 mg in the morning and 100 mg at night Continue monitor closely UTI Urine cx grew gram negative bacilli - Ecoli Currently on IV Rocephin Will transition to PO Keflex on discharge Electrolytes Imbalance Mg 1.9 today Continue monitor Atrial fibrillation Rate control with [id number] in AM and 100mg HS INR 1.7 today, coumadin increased to 1.7 today Diltiazem discontinued by cardiology Continue monitor PT/INR CAD H/o stents x4 in 2019, class 3 angina pectoris with low level exertional tolerance Continue statin, plavix, beta deny, Imdur Diabetes type 2 Most recent Hba1c 8.3 on 07/13/22 BS has been running high Continue lantus and insulin sliding scale Continue monitor BS Carotid stenosis H/o bilateral endarterectomy Hypothyroidism Continue levothyroxine check TSH in am RLS Continue ropinirole DVT Ppx: coumadin with INR 1.7 today Code status: FULL PCP: Lorelei Disposition We will discharge once medically stable Admission and Anticipated Discharge Date Admission Date: July 12, 2022 Subjective Pt was seen and examined for follow of SOB Sitting in chair with no acute distress with and daughter at bedside She said that her breathing feels much better She saturated well on RA Denies any chest pain, palpitation, dizziness and SOB Review of Systems Review of Systems: All systems reviewed & are unremarkable except as noted in Subjective Physical Exam Physical Exam: General- No acute distress Head- atraumatic Eyes- PERRL, EOMI, ENT- oropharynx clear Neck- supple, no JVD Lungs- +diminished BS Heart- regular rhythm; +murmur Abdomen- normal bowel sounds, soft, nontender Extremities- no calf tenderness, +edema Neuro- alert, oriented x 3; PERRL, EOMI; no facial palsy; no dysarthria Skin- warm & dry Results & Data Results & Data ([facility]) Vital Signs (Past 12 Hours) Vital Signs Temp Pulse Pulse Resp BP Pulse Ox O2 Del Method 07/16/22 16:00 36.8 C 81 17 110/68 95 Room Air 07/16/22 14:11 96/63 L 07/16/22 11:15 36.6 C 74 16 94/63 L 92 Room Air 07/16/22 09:31 76 07/16/22 08:04 36.8 C 73 17 131/78 93 Room Air
[2022-07-16] MEDS: rOPINIRole HCL 0.25 MG TABLET PO SCH (20:03)
[2022-07-16] MEDS: ATORVASTATIN 40 MG TAB PO SCH (20:03)
[2022-07-16] MEDS: GABAPENTIN 600 MG TAB PO SCH (20:03)
[2022-07-16] MEDS: MELATONIN 3 MG TAB PO PRN (22:21)
[2022-07-17] MEDS: LEVOTHYROXINE SODIUM 25 MCG TABLET PO SCH (05:59)
[2022-07-17 06:13] LABS: Hematocrit (blood only) 34.6 % (34.1-44.9); Hemoglobin 11.4 g/dl (12.0-16.0); Mean Corpuscular Hemoglobin 31.6 pg (25.0-34.0); Mean Corpuscular Hgb Conc 32.9 g/dL (32.0-36.0); Mean Corpuscular Volume 95.8 fL (80.0-100.0); Mean Platelet Volume 9.6 fL (9.4-12.3); Platelet Count 214 K/uL (130-400); RDW Coefficient of Variation 14.1 % (11.5-14.5); RDW Standard Deviation 49.1 fL (36.4-46.3); Red Blood Count 3.61 M/uL (3.93-5.22); White Blood Count 6.79 K/ul (4.8-10.8)
[2022-07-17 06:36] LABS: INR 1.9 (0.9-1.1); Prothrombin Time 19.5 Seconds (9.0-12.0)
[2022-07-17 06:39] LABS: Albumin Globulin Ratio 1.4 (0.9-2); Albumin Level 3.6 gm/dl (3.4-5.0); BUN Creatinine Ratio 29.6 (10-20); Bilirubin,Total 0.4 mg/dl (0.2-1.0); Calcium 8.9 mg/dl (8.5-10.1); Creatinine Clr Calc Pharmacy 42.6 ml/min; Est GFR (African American) 62.3 ml/min; Est GFR (Non-African American) 53.7 ml/min; Globulin 2.6 gm/dl (2.5-4.0); Potassium 4.3 mmol/L (3.5-5.1); Total Protein 6.2 gm/dl (6.0-8.3)
[2022-07-17] MEDS: FLUTICASONE PROPIONATE NA SPR 16 GM BTL NAE SCH (08:11)
[2022-07-17] MEDS: MAGNESIUM OXIDE 400 MG TAB PO SCH (08:12)
[2022-07-17] MEDS: MULTIVITAMIN TAB PO SCH (08:12)
[2022-07-17] MEDS: PANTOprazole 40 MG TAB PO SCH (08:12)
[2022-07-17] MEDS: CYANOCOBALAMIN (B-12) 500 MCG TABLET PO SCH (08:12)
[2022-07-17] MEDS: MONTELUKAST SODIUM 10 MG TABLET PO SCH (08:12)
[2022-07-17] MEDS: GABAPENTIN 300 MG CAP PO SCH (08:13)
[2022-07-17] MEDS: CLOPIDOGREL BISULFATE 75 MG TAB PO SCH (08:13)
[2022-07-17] MEDS: ISOSORBIDE MONO EXTENDED REL 60 MG TABCR PO SCH (08:13)
[2022-07-17] MEDS: METOPROLOL SUCC 50MG EXT REL TAB PO SCH (08:13)
[2022-07-17] MEDS ORDERED: FUROSEMIDE 20 MG TAB PO SCH (09:00)
[2022-07-17] MEDS ORDERED: RANOLAZINE 500 MG ER TAB PO SCH (09:00)
[2022-07-17] MEDS: INSULIN ASPART PER UNIT SC SCH ×2 (09:03→12:25)
[2022-07-17] MEDS: LANTUS PER UNIT CHARGE SQ SCH (09:04)
[2022-07-17] MEDS: cefTRIAXone SODIUM 1,000 MG in DEXTROSE 5% 50 ML IV SCH (09:35)
--- NOTE | 2022-07-17 11:20 | Cardiology Progress Note ---
Date of Service July 17, 2022 Assessment & Plan (1) Acute on chronic heart failure with reduced ejection fraction and diastolic dysfunction: (2) Mitral stenosis: (3) History of transcatheter aortic valve replacement (TAVR): (4) Coronary artery disease with angina pectoris: (5) S/P placement of cardiac pacemaker: Plan Admitted for worsening dyspnea/hypoxia, with symptoms consistent with acute on chronic HFrEF Echo demonstrating reduced LVEF at 40% and severe pulm hypertension, moderate MS. Diltiazem discontinued. metoprolol increased to 150 mg in AM And 100 mg in PM. Ranexa 500 mg BID added. furosemide 20 mg PO daily tomorrow. INR down to 1.9 today. Continue coumadin 5 mg daily. OK from cardiology standpoint for discharge. Admission and Anticipated Discharge Date Admission Date: July 12, 2022 Subjective Patient seen in follow up. She feels well in the bedside chair. No chest pain or shortness of breath. Physical Exam Constitutional: WD/WN, vitals as above no acute distress Neck: trachea midline, no thyromegaly Respiratory: no respiratory distress Auscultation: + diminished lung sounds (b/l with faint scattered wheeze) Cardiovascular: Rate/Rhythm: regular rate and regular rhythm Heart Sounds: + murmur (II/ systolic murmur) Vessels: no JVD (in the upright position (examined in chair)) Extremities: + edema (trace pretibial edema with chronic stasis changes) Gastrointestinal (Abdomen): normal bowel sounds, soft, nontender, no hepatosplenomegaly Skin: no rashes, warm and dry Neurologic: PERRL, EOMI, accommodation nl, no face palsy, no dysarthria Results & Data ([facility]) Vital Signs (Past 12 Hours) Vital Signs Temp Pulse Pulse Pulse Resp BP Pulse Ox 07/17/22 08:00 67 07/17/22 08:21 109/70 07/17/22 07:49 36.4 C L 75 20 94/61 L 93 07/17/22 03:41 36.4 C L 74 16 117/69 94 07/16/22 23:28 36.5 C 74 16 116/74 97 07/16/22 23:30 60 O2 Del Method 07/17/22 08:00 07/17/22 08:21 07/17/22 07:49 Room Air 07/17/22 03:41 Room Air 07/16/22 23:28 Room Air 07/16/22 23:30
[2022-07-18] MEDS ORDERED: cephALEXin 500 MG CAP PO SCH (09:00)
--- NOTE | 2022-07-18 09:01 | Discharge Summary ---
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 Started to feel poorly 2 weeks ago with increased work of breathing at rest and also worsened anginal symptoms requiring more sublingual nitro. Was able to see Thaddeus Cole PA-C in same-day apartment on June 30 and was normovolemic at that time. Diltiazem 120mg daily added to her regimen. Instructed to utilize Lasix up to 3 days/week as needed. Pacemaker was adjusted at that time. Since then, she continues to feel short of breath at rest and is noticed increased swelling in her feet as well as worsened abdominal distention. Taking medications as prescribed having last taken as needed Lasix 2 days ago. Denies any dietary changes such as increased salt. No known sick contacts, fever or chills. Cough is intermittent and dry. Has her "normal anginal symptoms" of discomfort in her upper chest and throat that she has been using nitro for as needed. Denies any discomfort at this time at rest but notices it with exertion. Denies any nausea, vomiting, abdominal pain, dysuria, diarrhea or constipation. Admission Exam Per Admitting Provider General Appearance:WD/WN, vitals as above, NAD, sitting up in bed, pleasant, obese, some conversational dyspnea Head: normocephalic, atraumatic Eyes:normal inspection, PERRL, conjunctivae normal, anicteric sclerae ENT: external ear and nose normal, oropharynx normal Neck: normal visual inspection, trachea midline, no thyromegaly Respiratory:increased respiratory effort, bibasilar rales, expiratory wheezes. No accessory muscle use Cardiovascular: regular rate, rhythm, no murmur, normal peripheral pulses, 1+ BLE edema. Vessels: + JVD Chest: normal inspection of chest Abdomen/GI: normal bowel sounds, soft, nontender but distended, no hepatosplenomegaly Extremities/Musculoskeletal: no cyanosis or clubbing, extremities motor strength 5/5 Neurologic: PERRL, EOMI, accommodation nl, no face palsy, no dysarthria, CN's II-XI intact bilaterally and moves all extremities Psychiatric:A+Ox3, euthymic affect Skin: no rashes, normal color, warm/dry. Some open and healing wounds on BLE but no erythema or drainage noted Principal Diagnosis Acute on chronic heart failure with reduced ejection fraction and diastolic dysfunction: Hypoxia Shortness of breath Tachy tanner syndrome s/p PM placement Aug 2021 UTI (Urinary tract infection) Electrolytes Imbalance Atrial fibrillation CAD Diabetes type 2 Carotid stenosis Hypothyroidism Discharge Exam General- No acute distress Head- atraumatic Eyes- PERRL, EOMI, ENT- oropharynx clear Neck- supple, no JVD Lungs- +diminished BS Heart- regular rhythm; +murmur Abdomen- normal bowel sounds, soft, nontender Extremities- no calf tenderness, +edema Neuro- alert, oriented x 3; PERRL, EOMI; no facial palsy; no dysarthria Skin- warm & dry Discharge Data Allergies Allergy/AdvReac Type Severity Reaction Status Date / Time empagliflozin Allergy Intermediate BLOOD IN Verified 08/29/21 02:28 [From Jardiance] URINE, BLADDER INFECTION carbamazepine Allergy Mild RASH Verified 08/29/21 02:28 oxaprozin Allergy Mild RASH/HIVES Verified 08/29/21 02:28 valproic acid Allergy Mild HEAD-TOE Verified 08/29/21 02:28 RASH Consultations 07/12/22 12:16 ED Decision to Admit Stat 07/12/22 14:06 Consult Cardiology Routine Ordered Studies Laboratory Results WBC 6.79 K/ul (4.8-10.8) 07/17/22 05:52 RBC 3.61 M/uL (3.93-5.22) L 07/17/22 05:52 Hgb 11.4 g/dl (12.0-16.0) L 07/17/22 05:52 Hct 34.6 % (34.1-44.9) 07/17/22 05:52 MCV 95.8 fL (80.0-100.0) 07/17/22 05:52 MCH 31.6 pg (25.0-34.0) 07/17/22 05:52 MCHC 32.9 g/dL (32.0-36.0) 07/17/22 05:52 RDW Std Deviation 49.1 fL (36.4-46.3) H 07/17/22 05:52 RDW Coeff of Omid 14.1 % (11.5-14.5) 07/17/22 05:52 Plt Count 214 K/uL (130-400) 07/17/22 05:52 MPV 9.6 fL (9.4-12.3) 07/17/22 05:52 Immature Gran % (Auto) 0.6 % 07/12/22 10:52 Neut % (Auto) 74.9 % 07/12/22 10:52 Lymph % (Auto) 16.3 % 07/12/22 10:52 Jay % (Auto) 7.3 % 07/12/22 10:52 Eos % (Auto) 0.8 % 07/12/22 10:52 Baso % (Auto) 0.1 % 07/12/22 10:52 Neut # (Auto) 5.42 K/uL (1.4-6.5) 07/12/22 10:52 Lymph # (Auto) 1.18 K/uL (1.2-3.4) L 07/12/22 10:52 Jay # (Auto) 0.53 K/uL (0.24-0.82) 07/12/22 10:52 Eos # (Auto) 0.06 K/uL (0-0.50) 07/12/22 10:52 Baso # (Auto) 0.01 K/uL (0-0.2) 07/12/22 10:52 Immature Gran # (Auto) 0.04 K/uL (0.00-0.02) H 07/12/22 10:52 PT 19.5 Seconds (9.0-12.0) H 07/17/22 05:52 INR 1.9 (0.9-1.1) H 07/17/22 05:52 VBG pH 7.33 (7.36-7.41) L 07/12/22 10:52 VBG pCO2 57 mmHg (38-50) H 07/12/22 10:52 VBG pO2 20 mmHg 07/12/22 10:52 VBG HCO3 30 mmol/L 07/12/22 10:52 VBG O2 Saturation < 60.0 % 07/12/22 10:52 VBG Base Excess 2.8 mEq/L 07/12/22 10:52 Sodium 139 mmol/L (136-145) 07/17/22 05:52 Potassium 4.3 mmol/L (3.5-5.1) 07/17/22 05:52 Chloride 97 mmol/L (98-107) L 07/17/22 05:52 Carbon Dioxide 37 mmol/L (21-32) H 07/17/22 05:52 Anion Gap 5 (3-11) 07/17/22 05:52 BUN 29 mg/dl (6-23) H 07/17/22 05:52 Creatinine 0.98 mg/dl (0.6-1.2) 07/17/22 05:52 Est Cr Clr Drug Dosing 42.6 ml/min 07/17/22 05:52 Est GFR ( Amer) 62.3 ml/min 07/17/22 05:52 Est GFR (Non-Af Amer) 53.7 ml/min 07/17/22 05:52 BUN/Creatinine Ratio 29.6 (10-20) H 07/17/22 05:52 Glucose 152 mg/dl (70-99(Fasting)) H 07/17/22 05:52 POC Glucose 210 mg/dl (70-99) H 07/17/22 11:08 Estimat Average Glucose 192 mg/dl 07/13/22 05:44 Hemoglobin A1c 8.3 % (4.5-5.6) H 07/13/22 05:44 Calcium 8.9 mg/dl (8.5-10.1) 07/17/22 05:52 Phosphorus 3.5 mg/dl (2.5-4.9) 07/16/22 05:54 Magnesium 1.9 mg/dl (1.7-2.4) 07/16/22 05:54 Total Bilirubin 0.4 mg/dl (0.2-1.0) 07/17/22 05:52 AST 21 U/L (13-39) 07/17/22 05:52 ALT 30 U/L (7-52) 07/17/22 05:52 Alkaline Phosphatase 42 U/L (34-104) 07/17/22 05:52 Troponin I High Sens 29.0 pg/ml (0-14) H 07/13/22 00:23 B-Natriuretic Peptide 1936 pg/ml (0-100) H 07/12/22 10:52 Total Protein 6.2 gm/dl (6.0-8.3) 07/17/22 05:52 Albumin 3.6 gm/dl (3.4-5.0) 07/17/22 05:52 Globulin 2.6 gm/dl (2.5-4.0) 07/17/22 05:52 Albumin/Globulin Ratio 1.4 (0.9-2) 07/17/22 05:52 Procalcitonin < 0.05 ng/ml (0-0.5) 07/12/22 14:38 Urine Color Yellow 07/12/22 23:22 Urine Appearance Clear (Clear) 07/12/22 23: Urine pH 5.5 (4.5-7.5) 07/12/22 23:22 Ur Specific [place] 1.023 (1.000-1.030) 07/12/22 23:22 Urine Protein 2+ (Negative) H 07/12/22 23:22 Urine Glucose (UA) Negative (Negative) 07/12/22 23:22 Urine Ketones Trace (Negative) H 07/12/22 23:22 Urine Blood Trace (Negative) H 07/12/22 23:22 Urine Nitrite Negative (Negative) 07/12/22 23:22 Urine Bilirubin Negative (Negative) 07/12/22 23:22 Urine Urobilinogen Negative (Negative) 07/12/22 23:22 Ur Leukocyte Esterase Negative (Negative) 07/12/22 23:22 Urine WBC (Auto) 1-5 /hpf (0-5) 07/12/22 23:22 Urine RBC (Auto) 10-30 /hpf (0-4) H 07/12/22 23:22 U Hyaline Cast (Auto) 5-10 /lpf (0-5) H 07/12/22 23: U Epithel Cells (Auto) >30 /lpf (0-5) H 07/12/22 23:22 Urine Bacteria (Auto) 3+ (Negative) H 07/12/22 23:22 Ur Renal Epithelial Cell Not Reportable 07/12/22 23:22 SARS-CoV-2 (PCR) NEGATIVE (Negative) 07/12/22 12:10 Influenza Type A (PCR) Negative (Neg) 07/12/22 12:10 Influenza Type B (PCR) Negative (Neg) 07/12/22 12:10 RSV (RT-PCR) Negative (Neg) 07/12/22 12:10 Impressions Chest X-Ray 07/14/22 09:15 SINGLE VIEW CHEST CLINICAL HISTORY: Congestive heart failure. FINDINGS: An AP, portable, upright chest radiograph is compared to study dated 07/12/2022. A 2-lead cardiac pacemaker is unchanged in position and partially obscures left mid chest. There is evidence of previous cardiac valve surgery. The heart is enlarged noting atherosclerotic calcification of the thoracic aorta. There is mild pulmonary vascular congestion. Chronic interstitial thickening is somewhat a previous. There are left larger than right pleural effusions with dependent consolidation. No pneumothorax is seen. The skeletal structures are osteopenic. The bony thorax is grossly intact. Fusion hardware is noted in the lumbar spine. Arthritic change is seen in the shoulders. IMPRESSION: 1. Cardiomegaly and cardiac pacemaker with mild pulmonary vascular congestion. 2. Left larger than right pleural effusions with dependent consolidation.. ACT 112: Negative or not required by law. Electronically signed by: Zachary Ignacio M.D. 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 Acute on chronic heart failure with reduced ejection fraction and diastolic dysfunction: Hypoxia Shortness of breath Present on admission with worsening shortness of breath CXR with mild pulmonary edema with small left and trace right pleural effusions and associated bibasilar opacities and cardiomegaly COVID 19, Flu, RSV and procalcitonin negative. High-sensitivity troponin 25.6, BNP 1936 ECHO showed large size apical, septal, lateral and inferior wall motion abnormality. Left ventricular systolic function is mild to moderately reduced with ejection fraction 35 to 40%. Currently saturated well on RA Cardiology on board IV lasix will stopped after afternoon dose Transition to PO lasix ranolazine 500mg BID added Continue monitor I/O Pt has been moving around with no respiratory distress Case discussed with cardiology hat recommended to discharge on lasix 20mg daily Clinically improved Tachy tanner syndrome s/p PM placement Aug 2021 Pacemaker interrogated and functioning properly Cardizem all discontinued by cardiology Metoprolol increased 150 mg in the morning and 100 mg at night Continue monitor closely UTI Urine cx grew gram negative bacilli - Ecoli Currently on IV Rocephin Will transition to PO Keflex on discharge Electrolytes Imbalance Mg 1.9 today Continue monitor Atrial fibrillation Rate control with [id number] in AM and 100mg HS INR 1.9 today continue coumadin Diltiazem discontinued by cardiology Follow up with the coumadin clinic Continue monitor PT/INR CAD H/o stents x4 in 2019, class 3 angina pectoris with low level exertional tolerance Continue statin, plavix, beta deny, Imdur Diabetes type 2 Most recent Hba1c 8.3 on 07/13/22 BS has been running high She was on lantus and insulin sliding scale during hospital course Continue monitor BS Carotid stenosis H/o bilateral endarterectomy Hypothyroidism Continue levothyroxine RLS Continue ropinirole DVT Ppx: coumadin with INR 1.9 today Code status: FULL PCP: Lorelei Disposition Plan to discharge home today Total Time Total Time Spent Total Time Spent (In Minutes): 35 minutes Discharge Plan Discharge Items Patient Disposition: Home - Home Health Services Reason For Visit: ACUTE DECOMPENSATED HF Discharge Diagnosis: Acute on chronic heart failure with reduced ejection fraction and diastolic dysfunction: Hypoxia Shortness of breath Tachy tanner syndrome s/p PM placement Aug 2021 UTI (Urinary tract infection) Electrolytes Imbalance Atrial fibrillation CAD Diabetes type 2 Carotid stenosis Hypothyroidism Activity: Resume your previous activity Non-emergency contact: Primary Care Provider and Center Medical And Lab Director Call non-emergency contact if: you have any medication questions Follow-up/Referrals: Natalio Moseley MD [Primary Care Provider] - (Date & Time 07/22/2022 11:20 AM Provider Natalio Moseley MD Department General Internal Medicine [facility] ) Diet: Carb Consistent or DM2 Addtl Attending Provider Instructions: Follow up with your primary 07/22/2022 @ 11:20 AM Natalio Moseley MD Department General Internal Medicine [facility] Follow up with your cardiology outpatient ( please call for the appointment) Follow up with the coumadin clinic to monitor your PT/INR ( INR 1.9 on discharge) Check BMP in 1 week to monitor your electrolytes and renal function Complete the course of the antibiotic with Keflex ( starting tomorrow morning) Fall precaution Metoprolol succinate changed to 100mg at night and 150mg in the morning Lasix 20mg changed to daily Diltiazem discontinued Starting on Ranexa (Ranolazine) 500mg twice a day Pending Studies at Discharge: No Stand-Alone Forms: [facility] [employer], Smoking Cessation Medications and DC Order Prescriptions: New metoprolol succinate 50 mg Tablet Extended Release 24 Hr 150 mg PO QAM 30 Days Qty: 90 0RF metoprolol succinate 50 mg Tablet Extended Release 24 Hr 100 mg PO QPM 30 Days Qty: 60 0RF ranolazine [Ranexa] 500 mg Tablet Extended Release 12 Hr 500 mg PO BID 30 Days Qty: 60 0RF cephalexin 500 mg Capsule 500 mg PO BID 2 Days Qty: 4 0RF Continued multivitamin Tablet 1 tab PO QAM atorvastatin 80 mg Tablet 80 mg PO HS clopidogrel 75 mg Tablet 75 mg PO QAM acetaminophen 500 mg Tablet 1,000 mg PO Q6H PRN (Reason: Pain) levothyroxine 25 mcg Tablet 25 mcg PO DAILYBB ropinirole 0.25 mg Tablet 0.25 mg PO HS Rx Instructions: TAKE AT HS WITH FOOD. nitroglycerin 0.4 mg Tablet, Sublingual 0.4 mg sublingual DIRECTED PRN (Reason: Angina) gabapentin 300 mg Capsule See Rx Instructions .ROUTE .COMPLEX Rx Instructions: 300 mg orally; TAKE 300 MG QAM, THEN 600 MG QPM. fluticasone propionate [Flonase Allergy Relief] 50 mcg/actuation [place],Suspension 2 spray INTRANASAL DAILY omeprazole 20 mg Tablet,Delayed Release (Dr/Ec) 20 mg PO DAILY Lumigan 0.01 % Drops 1 drp OPB HS metformin 500 mg Tablet 500 mg PO BIDM cyanocobalamin (vitamin B-12) 1,000 mcg Tablet 1,000 mcg PO QAM docusate sodium [Stool Softener] 100 mg Tablet 100 mg PO BID PRN (Reason: Constipation) magnesium oxide 400 mg magnesium Capsule 400 mg PO DAILY Rhopressa 0.02 % Drops 1 drp OPB HS isosorbide mononitrate 60 mg Tablet Extended Release 24 Hr 120 mg PO DAILY warfarin 5 mg tablet 5 mg PO DAILY@1600 glipizide 5 mg tablet 5 - 10 mg PO DAILY Repatha SureClick 140 mg/mL pen injector 140 mg SUBCUT .Q14 DAYS montelukast 10 mg tablet 10 mg PO DAILY albuterol sulfate 90 mcg/actuation HFA aerosol inhaler 2 puff INHALATION Q4 PRN (Reason: Wheezing) diphenhydramine-acetaminophen [Tylenol PM Extra Strength] 25-500 mg Tablet 2 tab PO HS PRN (Reason: Pain) Cranberry Caps 360 mg PO DAILY Rx Instructions: take two 180 mg caps tramadol 50 mg Tablet 50 mg PO Q6H PRN (Reason: moderate to severe pain) Qty: 14 0RF Vitron-C 65 mg iron- 125 mg Tablet,Delayed Release (Dr/Ec) 1 tab PO DAILY Changed furosemide [Lasix] 20 mg Tablet 20 mg PO DAILY 30 Days Qty: 30 0RF Rx Instructions: Instructed to take up to 3x/week as needed for fluid retention Discontinued diltiazem HCl 120 mg capsule,extended release 24hr 120 mg PO DAILY metoprolol succinate 25 mg tablet extended release 24 hr 100 mg PO BID Discharge Orders: Discharge Order (Routine); Ordered 07/17/22 Ordered By: Vladimir Rodriguez/Other Patient Handouts: Managing Type 2 Diabetes Admission Data Admit Date/Time: 07/12/22 12:31 Attending Provider: Vladimir Byrne Admit Provider: Ricarda Kothari Primary Care Provider: Natalio Moseley Other Providers: Ricarda Kothari ; Evert Hamilton Other Interventions: Discharge Summary Assessment (RN) Last Done: 07/17/22 13:15
== END 2022-07-17 13:48 | disposition home health service (06) | DRG 291 ==
LOC: ED 10:20 → 2S 12:31 → SUATTDRO 12:31 → 2S 15:00
DX: J44.9 Chronic obstructive pulmonary disease, unspecified; Z95.5 Presence of coronary angioplasty implant and graft; Z86.16 Personal history of COVID-19; Z95.0 Presence of cardiac pacemaker; I25.10 Atherosclerotic heart disease of native coronary artery without angina pectoris; R09.02 Hypoxemia; Z96.653 Presence of artificial knee joint, bilateral; Z83.3 Family history of diabetes mellitus; I48.0 Paroxysmal atrial fibrillation; Z79.890 Hormone replacement therapy; I49.5 Sick sinus syndrome; I50.43 Acute on chronic combined systolic (congestive) and diastolic (congestive) heart failure; Z99.81 Dependence on supplemental oxygen; I11.0 Hypertensive heart disease with heart failure; I34.2 Nonrheumatic mitral (valve) stenosis; Z96.642 Presence of left artificial hip joint; B96.20 Unspecified Escherichia coli [E. coli] as the cause of diseases classified elsewhere; Z79.02 Long term (current) use of antithrombotics/antiplatelets; N39.0 Urinary tract infection, site not specified; Z95.2 Presence of prosthetic heart valve; Z79.84 Long term (current) use of oral hypoglycemic drugs; I24.8 Other forms of acute ischemic heart disease; E03.9 Hypothyroidism, unspecified; E11.40 Type 2 diabetes mellitus with diabetic neuropathy, unspecified; G25.81 Restless legs syndrome

== ENCOUNTER 2022-08-03 17:32 | Inpatient (IN) ==
--- NOTE | 2022-08-03 17:50 | ED Triage Note ---
Date of Service August 03, 2022 History of Present Illness This patient was briefly evaluated while in triage. An abbreviated physical exam was performed. This patient is a 82-year-old Female with past medical history of CAD, Atrial fibrillation, on chronic anticoagulation who presents to the ED for evaluation of shortness of breath. Has hx of CHF, was recently admitted for same symptoms. Physical Exam VITALS: Vitals are noted on the nurse's note and reviewed by myself. GENERAL: This is a 82 year old female, in no acute distress, nondiaphoretic, well-developed well-nourished. SKIN: No obvious rashes, edema, erythema HEAD: Normocephalic atraumatic. EYES: Conjunctivae without injection, sclerae without icterus. NECK: No JVD. LUNGS: No retractions or accessory muscle use. MUSCULOSKELETAL: Normal gait. NEURO: Patient was alert and oriented to person place and time. No focal neurological deficits. Initial orders for labs and / or imaging were placed and patient was placed in the waiting area until a bed is available. Please see further documentation for the full ED course. MDM / Impression Impression Impression: Pulmonary edema, Hypoxia : Pulmonary edema Qualifiers: Chronicity: acute Qualified Code(s): J81.0 - Acute pulmonary edema
[2022-08-03 19:14] LABS: Basophils # (auto) 0.03 K/uL (0-0.2); Basophils % (auto) 0.4 %; Eosinophils # (auto) 0.06 K/uL (0-0.50); Eosinophils % (auto) 0.8 %; Hematocrit (blood only) 34.6 % (34.1-44.9); Hemoglobin 10.9 g/dl (12.0-16.0); Immature Granulocytes # (auto) 0.03 K/uL (0.00-0.02); Immature Granulocytes % (auto) 0.4 %; Mean Corpuscular Hgb Conc 31.5 g/dL (32.0-36.0); Mean Corpuscular Volume 98.3 fL (80.0-100.0); Mean Platelet Volume 9.3 fL (9.4-12.3); Monocytes # (auto) 0.48 K/uL (0.24-0.82); Monocytes % (auto) 6.6 %; Neutrophils # (auto) 5.32 K/uL (1.4-6.5); Neutrophils % (auto) 73.8 %; Platelet Count 318 K/uL (130-400); RDW Coefficient of Variation 14.9 % (11.5-14.5); RDW Standard Deviation 53.6 fL (36.4-46.3); Red Blood Count 3.52 M/uL (3.93-5.22); White Blood Count 7.22 K/ul (4.8-10.8)
[2022-08-03 19:35] LABS: Partial Thromboplastin Ratio 1.4; Partial Thromboplastin Time 39.3 Seconds (21.0-31.0); Prothrombin Time 39.1 Seconds (9.0-12.0)
[2022-08-03 19:43] LABS: Troponin I High Sensitivity 22.5 pg/ml (0-14)
[2022-08-03 19:44] LABS: Alanine Aminotransferase 24 U/L (7-52); Albumin Globulin Ratio 1.4 (0.9-2); Albumin Level 3.8 gm/dl (3.4-5.0); Alkaline Phosphatase 52 U/L (34-104); Anion Gap 9 (3-11); Aspartate Aminotransferase 21 U/L (13-39); BUN Creatinine Ratio 27.8 (10-20); Bilirubin,Total 0.5 mg/dl (0.2-1.0); Blood Urea Nitrogen 25 mg/dl (6-23); Calcium 9.1 mg/dl (8.5-10.1); Carbon Dioxide 29 mmol/L (21-32); Chloride 104 mmol/L (98-107); Est GFR (Non-African American) 59.5 ml/min; Globulin 2.8 gm/dl (2.5-4.0); Glucose 136 mg/dl (70-99(Fasting)); Potassium 4.6 mmol/L (3.5-5.1); Sodium 142 mmol/L (136-145); Total Protein 6.6 gm/dl (6.0-8.3)
--- NOTE | 2022-08-03 20:07 | XRay Report ---
XR chest 1V portable CLINICAL HISTORY: Dyspnea TECHNIQUE: Single frontal radiograph of the chest was obtained. Comparison: Comparison is made to chest radiograph 07/14/2022 FINDINGS: Dual lead pacemaker is seen. Cardiomegaly is noted. The aortic arch is calcified. Reticular interstit ial opacities are seen. There is blunting of the costophrenic angle on the left. IMPRESSION: Blunting of the left costophrenic angle may represent a small pleural effusion. Otherwise no airspace opacities are seen. Stable cardiomegaly. ACT 112: Negative or not required by law. Electronically signed by: Chandler Viera M.D. 08/03/2022 8:06 PM
[2022-08-03] MEDS ORDERED: FUROSEMIDE 40 MG/4 ML VIAL IV ONE (20:27)
--- NOTE | 2022-08-03 20:28 | Emergency Department Note ---
Impression & Plan Pulmonary edema, Hypoxia ED Provider Note NAME: MARJORIE BLAKE AGE: 82 SEX: F : 1940 ARRIVES VIA: Walk-In INFORMANT: Patient, ED PROVIDER(S): Toi Smith DO CHIEF COMPLAINT: Shortness of breath HPI: The patient is an 82-year-old female who presented to the emergency department for an evaluation of shortness of breath. The patient has had ongoing and worsening symptoms over the last 2 weeks. She notices a 4 pound w eight gain. She has been compliant with her outpatient medications which include Lasix. She denies having any fever. She has had no hemoptysis. She does complain of lower extremity swelling but no pain. The patient states that she has been having worsening shortness of breath throughout today. Her significant other put her on her outpatient supplemental oxygen. She normally wears this at night only but started wearing it throughout the day today. She states that this helped significantly. She denies having any recent trauma. ROS: See above HPI for pertinent positives & negatives. A total of 10 systems reviewed and were otherwise negative. PAST MEDICAL HISTORY: See Below PAST SURGICAL HISTORY: See Below FAMILY HISTORY: See Below SOCIAL HISTORY: See Below HOME MEDICATIONS: See Below ALLERGIES: See Below VITALS: See Below PHYSICAL EXAMINATION: GENERAL: Patient is awake alert in no acute distress patient is resting comfortably and showing no signs of anxiety EYES: The conjunctivae are clear. The pupils are round and reactive. EARS, NOSE, MOUTH AND THROAT: The nose is without any evidence of any deformity. Mucous membranes are moist. Tongue is midline. NECK: The neck is nontender and supple. RESPIRATORY: Diminished breath sounds are noted throughout. There were rales in both lung mello. Mild conversational dyspnea was appreciated. CARDIOVASCULAR: Regular rate and rhythm noted there no murmurs rubs or gallops normal S1 normal S2. GASTROINTESTINAL: The abdomen is soft. Abdomen is nontender. MUSCULOSKELETAL/EXTREMITIES: There is no evidence of gross deformity full range of motion is noted in the hips and shoulders. SKIN: Skin is warm and dry. There is trace pedal edema noted bilaterally. NEUROLOGIC: Patient is awake alert and oriented x3 MEDICAL DECISION MAKING: The patient is an 82-year-old female who has a history of CHF who presented to the emergency department at the request of her primary care physician for an evaluation of shortness of breath weight gain and orthopnea. The patient's history and physical exam appear to be consistent with CHF. She was treated with IV Lasix. She was placed on supplemental oxygen. She was feeling much better on subsequent reevaluation. The patient does not normally wear oxygen through the day. I discussed her condition with the on-call hospitalist. They have agreed to evaluate the patient in the emergency department for further man agement and disposition. Triage Nursing notes reviewed. Prior medical records reviewed Vital Signs: reviewed and remarkable for hypoxia on room air. Differential diagnosis: Reactive airway disease, pneumonia, pneumothorax, COPD, CHF, infections, cardiac ischemia, pulmonary embolism, musculoskeletal, gastrointestinal, as well as other pathologies. ER treatment provided: See below Diagnostics interpreted by me: ECG: EKG was obtained in the emergency department. My interpretation is atrial sensing with ventricular paced rhythm at 96 bpm. A right bundle branch block pattern was noted. There were no PVCs or diomede beats noted. This was compared to a tracing from July 12, 2022. No changes were noted. Cardiac Monitoring: An order was placed for continuous cardiac monitoring. The monitor shows a rate of 89 bpm with paced rhythm. Laboratory studies: As stated above and show below. Imaging studies: See below Consultation(s): I discussed this case with Dr. Aguilar who is on-call for the [facility] group. Past Med/Surg History Medical History (Updated 08/03/22 @ 22:00 by Emmanuelle Post PA-C) Cardiac murmur no longer since heart valve surgery 02/2019 Chronic back pain Chronic combined systolic and diastolic heart failure Diabetes mellitus, type 2 GERD (gastroesophageal reflux disease) Glaucoma History of transcatheter aortic valve replacement (TAVR) Hyperlipidemia Hypertension Hypothyroidism Hypoxia, sleep related uses oxygen at hs 2.5 Laryngeal spasm On anticoagulant therapy on plavix daily On home oxygen therapy 2.5 LITER AT HS Osteoarthritis Restless leg syndrome Tachy-tanner syndrome Surgical History History of abdominal surgery for bowel obstruction History of aortic valve [place] [facility] [place]follow[place] Dr. Arredondo History of appendectomy History of cardiac cath x4 with a total of 4 stents--last--12/2018 [place] [facility] [place] DR[place]UTING STENT History of colonoscopy History of esophagogastroduodenoscopy (EGD) History of heart artery stent a total of 4 stents--last--12/2018 [place] [facility] [place] DRUG ELUTING STENT History of hip surgery left 2 screws placed after total hip replacement History of lumbar laminectomy for spinal cord decompression x2 History of right cataract surgery History of tonsillectomy History of tooth extraction all teeth removed History of total hysterectomy with bilateral salpingo-oophorectomy (BSO) History of total left hip replacement History of total left knee replacement (TKR) History of total right knee replacement (TKR) S/P placement of cardiac pacemaker Aug 2021 Status post glaucoma surgery right eye Status post trigger finger release left hand Family History Mother Diabetes Osteoporosis Heart disease Grandmother (Maternal) Diabetes Father Heart disease Other Asthma No family history of adverse response to anesthesia Social History Smoking Status: Never smoker Tobacco Type: Cigarettes Second Hand Exposure: No; Do You Dip or Chew Tobacco: No; Hx Alcohol Use: No Hx Substance Use: No Preferred Language: Dutch Communication Ability: Effective Ad Operations Intern Required: No Beliefs That Will Affect Care: None marital status: Current Living Situation: Spouse Current Living Situation Comment: Lives with Feels Safe at Home: Yes Assistive Devices: Cane, Denture - Upper, Denture - Lower, Glasses, Hearing Aid - Left, Hearing Aid - Right, Oxygen - at Night and Walker Allergies Allergies Allergy/AdvReac Type Severity Reaction Status Date / Time empagliflozin Allergy Intermediate BLOOD IN Verified 08/03/22 21:31 [From Jardiance] URINE, BLADDER INFECTION carbamazepine Allergy Mild RASH Verified 08/03/22 21:31 oxaprozin Allergy Mild RASH/HIVES Verified 08/03/22 21:31 valproic acid Allergy Mild HEAD-TOE Verified 08/03/22 21:31 RASH ranolazine [From Ranexa] AdvReac Dizziness Verified 08/04/22 03:12 Home Meds Home Medications Medication Instructions Recorded Confirmed atorvastatin 80 mg tablet 80 mg PO HS 06/12/19 08/03/22 bimatoprost 0.01 % eye drops 1 drp OPB HS 06/12/19 08/03/22 (Marion) clopidogrel 75 mg tablet 75 mg PO QAM 06/12/19 08/03/22 fluticasone propionate 50 2 spray intranasal DAILY 06/12/19 08/03/22 mcg/actuation nasal spray,suspension (Flonase Allergy Relief) levothyroxine 25 mcg tablet 25 mcg PO DAILYBB 06/12/19 08/03/22 multivitamin 1 tab PO QAM 06/12/19 08/03/22 nitroglycerin 0.4 mg sublingual 0.4 mg sublingual DIRECTED PRN 06/12/19 08/03/22 tablet Angina omeprazole 20 mg tablet,delayed 20 mg PO DAILY 06/12/19 08/03/22 release ropinirole 0.25 mg tablet 0.25 mg PO HS 06/12/19 08/03/22 metformin 500 mg tablet 500 mg PO BIDM 07/13/20 08/03/22 docusate sodium 100 mg tablet 100 mg PO BID PRN Constipation 11/11/20 08/03/22 (Stool Softener) magnesium oxide 400 mg PO DAILY 11/11/20 08/03/22 netarsudil 0.02 % eye drops 1 drp OPB HS 11/11/20 08/03/22 (Rhopressa) evolocumab 140 mg/mL subcutaneous 140 mg subcut .Q14 DAYS 02/27/21 08/03/22 pen injector (Brad Mcfarlane) glipizide 5 mg tablet 5 - 10 mg PO DAILY 02/27/21 08/03/22 isosorbide mononitrate 60 mg 120 mg PO DAILY 02/27/21 08/03/22 tablet,extended release 24 hr warfarin 5 mg tablet 5 mg PO DAILY@1600 02/27/21 08/03/22 Cranberry Caps 360 mg PO DAILY 08/29/21 08/03/22 diphenhydramine 25 2 tab PO HS PRN Pain-sleep 08/29/21 08/03/22 mg-acetaminophen 500 mg tablet (Tylenol PM Extra Strength) montelukast 10 mg tablet 10 mg PO DAILY 08/29/21 08/03/22 iron,carbonyl 65 mg-vitamin C 125 1 tab PO DAILY 07/12/22 08/03/22 mg tablet,delayed release (Vitron-C) acetaminophen 500 mg tablet 1,000 mg PO Q6H PRN Pain 08/03/22 08/03/22 (Tylenol Extra Strength) furosemide 20 mg tablet (Lasix) 20 mg PO DAILY 08/03/22 08/03/22 gabapentin 300 mg capsule 600 mg PO HS 08/03/22 08/03/22 metoprolol succinate 100 mg 100 mg PO HS 08/03/22 08/03/22 tablet,extended release 24 hr metoprolol succinate 100 mg 150 mg PO QAM 08/03/22 08/03/22 tablet,extended release 24 hr Results & Data (ED) Vital Signs Vital Signs - 24 hr 08/03/22 17:44 08/03/22 19:53 08/03/22 20:00 Temperature 36.8 C Temperature Source Temporal Artery Scan Pulse Rate 95 H Pulse Rate [Apical] 89 Pulse Rhythm [Apical] Regular Pulse Strength [Apical] Normal Respiratory Rate 16 28 H Respiratory Effort / Characteristics Labored Respiratory Depth Shallow Respiratory Pattern Tachypnea Blood Pressure 148/81 H Blood Pressure [Right Arm] 152/75 H Blood Pressure Mean 103 Blood Pressure Mean [Right Arm] 100 Blood Pressure Position [Right Arm] Lying Pulse Oximetry 92 86 L Oxygen Delivery Method Room Air Room Air Room Air Oxygen Flow Rate Sepsis Recent Fever Within 48 Hours No Sepsis New/Unexplained Change in Mental Status N/A Sepsis Action Taken by Nursing No Action Required 08/03/22 22:00 Temperature Temperature Source Pulse Rate Pulse Rate [Apical] 89 Pulse Rhythm [Apical] Regular Pulse Strength [Apical] Normal Respiratory Rate 26 H Respiratory Effort / Characteristics Labored Respiratory Depth Shallow Respiratory Pattern Tachypnea Blood Pressure Blood Pressure [Right Arm] 137/97 Blood Pressure Mean Blood Pressure Mean [Right Arm] 110 Blood Pressure Position [Right Arm] Pulse Oximetry 96 Oxygen Delivery Method Oxygen Flow Rate 2.5 Sepsis Recent Fever Within 48 Hours Sepsis New/Unexplained Change in Mental Status Sepsis Action Taken by Assisted Medications Current Medication List: was personally reviewed by me Laboratory Data Attestation: I reviewed the patient's lab results. Result diagrams: 08/04/22 05:34 08/04/22 05:34 Lab Results 08/03/22 08/03/22 08/03/22 Range/Units 19:05 19:05 19:05 WBC 7.22 (4.8-10.8) K/ul RBC 3.52 L (3.93-5.22) M/uL Hgb 10.9 L (12.0-16.0) g/dl Hct 34.6 (34.1-44.9) % MCV 98.3 (80.0-100.0) fL MCH 31.0 (25.0-34.0) pg MCHC 31.5 L (32.0-36.0) g/dL RDW Std Deviation 53.6 H (36.4-46.3) fL RDW Coeff of Omid 14.9 H (11.5-14.5) % Plt Count 318 (130-400) K/uL MPV 9.3 L (9.4-12.3) fL Immature Gran % (Auto) 0.4 % Neut % (Auto) 73.8 % Lymph % (Auto) 18.0 % [place] % (Auto) 6.6 % Eos % (Auto) 0.8 % Baso % (Auto) 0.4 % Neut # (Auto) 5.32 (1.4-6.5) K/uL Lymph # (Auto) 1.30 (1.2-3.4) K/uL [place] # (Auto) 0.48 (0.24-0.82) K/uL Eos # (Auto) 0.06 (0-0.50) K/uL Baso # (Auto) 0.03 (0-0.2) K/uL Immature Gran # (Auto) 0.03 H (0.00-0.02) K/uL PT 39.1 H (9.0-12.0) Seconds INR 4.0 H (0.9-1.1) APTT 39.3 H (21.0-31.0) Seconds PTT Ratio 1.4 ABG pH (7.35-7.45) ABG pCO2 (35-46) mmHg ABG pO2 (80-95) mmHg ABG HCO3 (19-24) mmol/L ABG O2 Saturation (90-95) % ABG Base Excess (-9-1.8) mEq/L Manolo Test (Pos) Oxygen Given Sodium 142 (136-145) mmol/L Potassium 4.6 (3.5-5.1) mmol/L Chloride 104 (98-107) mmol/L Carbon Dioxide 29 (21-32) mmol/L Anion Gap 9 (3-11) BUN 25 H (6-23) mg/dl Creatinine 0.90 (0.6-1.2) mg/dl Est Cr Clr Drug Dosing Not Reportable Est GFR ( Amer) 69.0 ml/min Est GFR (Non-Af Amer) 59.5 ml/min BUN/Creatinine Ratio 27.8 H (10-20) Glucose 136 H (70-99(Fasting)) mg/dl Calcium 9.1 (8.5-10.1) mg/dl Magnesium (1.7-2.4) mg/dl Total Bilirubin 0.5 (0.2-1.0) mg/dl AST 21 (13-39) U/L ALT 24 (7-52) U/L Alkaline Phosphatase 52 (34-104) U/L Troponin I High Sens 22.5 H (0-14) pg/ml B-Natriuretic Peptide (0-100) pg/ml Total Protein 6.6 (6.0-8.3) gm/dl Albumin 3.8 (3.4-5.0) gm/dl Globulin 2.8 (2.5-4.0) gm/dl Albumin/Globulin Ratio 1.4 (0.9-2) SARS-CoV-2, RNA, NAAT (NEGATIVE) 08/03/22 08/03/22 08/03/22 Range/Units 19:05 19:05 19:05 WBC (4.8-10.8) K/ul RBC (3.93-5.22) M/uL Hgb (12.0-16.0) g/dl Hct (34.1-44.9) % MCV (80.0-100.0) fL MCH (25.0-34.0) pg MCHC (32.0-36.0) g/dL RDW Std Deviation (36.4-46.3) fL RDW Coeff of Omid (11.5-14.5) % Plt Count (130-400) K/uL MPV (9.4-12.3) fL Immature Gran % (Auto) % Neut % (Auto) % Lymph % (Auto) % [place] % (Auto) % Eos % (Auto) % Baso % (Auto) % Neut # (Auto) (1.4-6.5) K/uL Lymph # (Auto) (1.2-3.4) K/uL [place] # (Auto) (0.24-0.82) K/uL Eos # (Auto) (0-0.50) K/uL Baso # (Auto) (0-0.2) K/uL Immature Gran # (Auto) (0.00-0.02) K/uL PT (9.0-12.0) Seconds INR (0.9-1.1) APTT (21.0-31.0) Seconds PTT Ratio ABG pH (7.35-7.45) ABG pCO2 (35-46) mmHg ABG pO2 (80-95) mmHg ABG HCO3 (19-24) mmol/L ABG O2 Saturation (90-95) % ABG Base Excess (-9-1.8) mEq/L Manolo Test (Pos) Oxygen Given Sodium (136-145) mmol/L Potassium (3.5-5.1) mmol/L Chloride (98-107) mmol/L Carbon Dioxide (21-32) mmol/L Anion Gap (3-11) BUN (6-23) mg/dl Creatinine (0.6-1.2) mg/dl Est Cr Clr Drug Dosing Est GFR ( Amer) ml/min Est GFR (Non-Af Amer) ml/min BUN/Creatinine Ratio (10-20) Glucose (70-99(Fasting)) mg/dl Calcium (8.5-10.1) mg/dl Magnesium 1.1 L (1.7-2.4) mg/dl Total Bilirubin (0.2-1.0) mg/dl AST (13-39) U/L ALT (7-52) U/L Alkaline Phosphatase (34-104) U/L Troponin I High Sens (0-14) pg/ml B-Natriuretic Peptide 1996 H (0-100) pg/ml Total Protein (6.0-8.3) gm/dl Albumin (3.4-5.0) gm/dl Globulin (2.5-4.0) gm/dl Albumin/Globulin Ratio (0.9-2) SARS-CoV-2, RNA, NAAT NEGATIVE (NEGATIVE) 08/03/22 08/03/22 Range/Units 21:59 21:59 WBC (4.8-10.8) K/ul RBC (3.93-5.22) M/uL Hgb (12.0-16.0) g/dl Hct (34.1-44.9) % MCV (80.0-100.0) fL MCH (25.0-34.0) pg MCHC (32.0-36.0) g/dL RDW Std Deviation (36.4-46.3) fL RDW Coeff of Omid (11.5-14.5) % Plt Count (130-400) K/uL MPV (9.4-12.3) fL Immature Gran % (Auto) % Neut % (Auto) % Lymph % (Auto) % [place] % (Auto) % Eos % (Auto) % Baso % (Auto) % Neut # (Auto) (1.4-6.5) K/uL Lymph # (Auto) (1.2-3.4) K/uL [place] # (Auto) (0.24-0.82) K/uL Eos # (Auto) (0-0.50) K/uL Baso # (Auto) (0-0.2) K/uL Immature Gran # (Auto) (0.00-0.02) K/uL PT (9.0-12.0) Seconds INR (0.9-1.1) APTT (21.0-31.0) Seconds PTT Ratio ABG pH 7.43 (7.35-7.45) ABG pCO2 42 (35-46) mmHg ABG pO2 117 H (80-95) mmHg ABG HCO3 28 H (19-24) mmol/L ABG O2 Saturation 98.2 H (90-95) % ABG Base Excess 3.2 H (-9-1.8) mEq/L Manolo Test Pos (Pos) Oxygen Given ROOM AIR Sodium (136-145) mmol/L Potassium (3.5-5.1) mmol/L Chloride (98-107) mmol/L Carbon Dioxide (21-32) mmol/L Anion Gap (3-11) BUN (6-23) mg/dl Creatinine (0.6-1.2) mg/dl Est Cr Clr Drug Dosing Est GFR ( Amer) ml/min Est GFR (Non-Af Amer) ml/min BUN/Creatinine Ratio (10-20) Glucose (70-99(Fasting)) mg/dl Calcium (8.5-10.1) mg/dl Magnesium (1.7-2.4) mg/dl Total Bilirubin (0.2-1.0) mg/dl AST (13-39) U/L ALT (7-52) U/L Alkaline Phosphatase (34-104) U/L Troponin I High Sens 24.0 H (0-14) pg/ml B-Natriuretic Peptide (0-100) pg/ml Total Protein (6.0-8.3) gm/dl Albumin (3.4-5.0) gm/dl Globulin (2.5-4.0) gm/dl Albumin/Globulin Ratio (0.9-2) SARS-CoV-2, RNA, NAAT (NEGATIVE) Administered Medications Clopidogrel Bisulfate (Clopidogrel Bisulfate 75 Mg Tab) 75 mg PO QAM [facility] Stop: 09/03/22 08:59 Last Admin: 08/04/22 09:48 Dose: 75 mg Documented By: DAYNE Fluticasone Propionate (Fluticasone Propionate Na Spr 16 Gm Btl) 2 sprays NA DAILY PRIMO Stop: 09/03/22 08:59 Last Admin: 08/04/22 09:48 Dose: 2 sprays Documented By: DAYNE Furosemide (Furosemide Inj 20 Mg/2 Ml Vial) 20 mg IV BID PRIMO Stop: 09/03/22 08:59 Last Admin: 08/04/22 09:48 Dose: 20 mg Documented By: DAYNE Insulin Aspart (Insulin Aspart Per Unit) 0 units SC ACHS [facility] Stop: 09/03/22 01:01 Last Admin: 08/04/22 08:17 Dose: 1 units Documented By: DAYNE Co-signed By: YUN Admin: 08/04/22 01:38 Dose: 2 units Documented By: RICKIE Co-signed By: DEBBIE Insulin Glargine (Lantus Per Unit Charge) 10 units SQ HS [facility] Stop: 09/03/22 02:49 Last Admin: 08/04/22 03:43 Dose: 10 units Documented By: RICKIE Co-signed By: DEBBIE Isosorbide Mononitrate (Isosorbide [place] Extended Rel 60 Mg Tabcr) 120 mg PO DAILY [facility] Stop: 09/03/22 08:59 Last Admin: 08/04/22 09:47 Dose: 120 mg Documented By: DAYNE Levothyroxine Sodium ([facility]othyroxine Sodium 25 Mcg Tablet) [facility] Stop: 09/03/22 06:29 Last Admin: 08/04/22 04:47 Dose: 25 mcg Documented By: [facility] Metoprolol Succinate (Metoprolol Succ 50mg Ext Rel Tab) 150 mg PO QAM [facility]IMO Stop: 09/03/22 08:59 Last Admin: 08/04/22 09:48 Dose: 150 mg Documented By: DAYNE Multivitamins (Multivitamin Tab) 1 tab PO QAM [facility] Stop: 09/03/22 08:59 Last Admin: 08/04/22 09:47 Dose: 1 tab Documented By: NMS Pantoprazole Sodium (Pantoprazole 40 Mg Tab) 40 mg PO DAILY [facility] Stop: 09/03/22 08:59 Last Admin: 08/04/22 09:47 Dose: 40 mg Documented By: DAYNE Discontinued Medications Furosemide (Furosemide 40 Mg/4 Ml Vial) 40 mg IV ONE ONE Stop: 08/03/22 20:28 Last Admin: 08/03/22 20:34 Dose: 40 mg Documented By: RSL Magnesium Sulfate/Dextrose (Magnesium Sulfate / D5w) 1 gm in 100 mls @ 50 mls/hr IV Q2H [facility]IMO Stop: 08/04/22 06:29 Last Infusion: 08/04/22 06:46 Dose: 0 mls/hr Documented By: Admin: 08/04/22 04:46 Dose: 50 mls/hr Documented By: [facility] Infusion: 08/04/22 04:46 Dose: 50 mls/hr Documented By: [facility] Admin: 08/04/22 03:45 Dose: 50 mls/hr Documented By: [facility] Infusion: 08/04/22 03:36 Dose: 50 mls/hr Documented By: [facility] Admin: 08/04/22 01:36 Dose: 50 mls/hr Documented By: [facility] Infusion: 08/04/22 00:49 Dose: 50 mls/hr Documented By: [facility] Admin: 08/03/22 22:49 Dose: 50 mls/hr Documented By: RSL Ipratropium Mallory (Ipratropium Mallory Neb Soln 0.02% 2.5 Ml Vial) 0.5 mg INH NOW STA Stop: 08/03/22 20:38 Last Admin: 08/03/22 22:33 Dose: 0.5 mg Documented By: RSL Levalbuterol HCl (Levalbuterol 1.25mg/0.5ml Neb) 1.25 mg INH NOW STA Stop: 08/03/22 20:38 Last Admin: 08/03/22 22:33 Dose: 1.25 mg Documented By: RSL Metoprolol Tartrate (Metoprolol Tartrate 1 Mg/Ml Vial) 2.5 mg IV NOW STA Stop: 08/04/22 01:00 Last Admin: 08/04/22 01:37 Dose: 2.5 mg Documented By: [facility] Imaging Data Radiologist's Impression: Chest X-Ray 08/03/22 17:50 XR chest 1V portable CLINICAL HISTORY: Dyspnea TECHNIQUE: Single frontal radiograph of the chest was obtained. Comparison: Comparison is made to chest radiograph 07/14/2022 FINDINGS: Dual lead pacemaker is seen. Cardiomegaly is noted. The aortic arch is calcified. Reticular interstitial opacities are seen. There is blunting of the costophrenic angle on the left. IMPRESSION: Blunting of the left costophrenic angle may represent a small pleural effusion. Otherwise no airspace opacities are seen. Stable cardiomegaly. ACT 112: Negative or not required by law. Electronically signed by: Chandler Viera M.D. 08/03/2022 8:06 PM Discharge Plan Visit Data Chief Complaint: Shortness of Breath/Dyspnea Stated Complaint: SOB,CHEST PAIN, ED Provider: Toi Smith Discharge Problem: Pulmonary edema, Hypoxia Patient Disposition: Admitted As Inpatient Discharge Instructions Interventions: ED Discharge Assessment Last Done: 08/04/22 00:46 : Pulmonary edema Qualifiers: Chronicity: acute Qualified Code(s): J81.0 - Acute pulmonary edema
[2022-08-03] MEDS ORDERED: XOPENEX/ATROVENT 1.25mg/0.5MG NEB COMBO NEB STA (20:34)
[2022-08-03] MEDS ORDERED: LEVALBUTEROL 1.25MG/0.5ML NEB INH STA (20:37)
[2022-08-03] MEDS ORDERED: IPRATROPIUM BROMIDE NEB SOLN 0.02% 2.5 ML VIAL INH STA (20:37)
--- NOTE | 2022-08-03 20:44 | History & Physical Report ---
Date of Service August 03, 2022 Assessment & Plan (1) Shortness of breath: (2) Angina pectoris: (3) Chronic combined systolic and diastolic heart failure: (4) Hypoxia: (5) Hypomagnesemia: (6) Tachy-tanner syndrome: (7) S/P placement of cardiac pacemaker: (8) CAD (coronary artery disease): (9) S/P TAVR (transcatheter aortic valve replacement): (10) Afib: (11) Hypertension: (12) Diabetes mellitus, type II: (13) Carotid stenosis: (14) Hypothyroidism: Plan: This is an 82 yo F with extensive PMH of diastolic, systolic heart failure, aortic stenosis s/p TAVR, paravalvular aortic prosthesis regurgitation, 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 Assessment and Plan per Dr Becker. See addendum. History of Present Illness Chief Complaint: SOB Primary Care Provider: Natalio Moseley MD This is an 82 yo F with extensive PMH of diastolic, systolic heart failure, aortic stenosis s/p TAVR, paravalvular aortic prosthesis regurgitation, tachy tanner syndrome s/p PM placement Aug 2021, CAD s/p stents, carotid stenosis s/p bilateral endarterectomies, PVD, PAF on coumadin, HTN, HLD, pulmonary HTN, DM II, hypothyroidism, chronic anemia, history of laryngospasm presented to ER with complaint of SOB. History obtained from patient and from chart review. History hospitalization 07/12/2022-07/17/2022 for acute on chronic combined heart failure. Had diuresis with IV Lasix. Discharged on Lasix 20 mg daily. Ranexa was added for chronic angina symptoms. Diltiazem discontinued, metoprolol succinate changed to 150 mg in a.m. and 100 mg in p.m. Urine culture positive E. coli treated IV Rocephin and discharged on Keflex. Patient states was feeling well at time of hospital discharge and then home for couple of days and started having SOB with associated chest pressure that radiates up bilateral neck with exertion. Occurs with getting dressed and walking in the house. Patient states has been taking SL nitro 2-3 times a day with relief of symptoms for the past couple of weeks. She states doesn't weigh herself daily but thinks is up 6 pounds in past 1-2 months. Notices BLE with right being worse than left and thinks this is her baseline. Denies fever/chills, diaphoresis, N/V/D/C, CARRAS[place], dizziness, syncope, vision changes, orthopnea, palpitations, cough, sore throat, choking, otalgia, rhinorrhea, abdominal pain, paresthesias, weakness, extremity weakness, rashes, urinary symptoms. Allergies Allergy/AdvReac Type Severity Reaction Status Date / Time empagliflozin Allergy Intermediate BLOOD IN Verified 08/03/22 21:31 [From Jardiance] URINE, BLADDER INFECTION carbamazepine Allergy Mild RASH Verified 08/03/22 21:31 oxaprozin Allergy Mild RASH/HIVES Verified 08/03/22 21:31 valproic acid Allergy Mild HEAD-TOE Verified 08/03/22 21:31 RASH ranolazine [From Ranexa] AdvReac Dizziness Verified 08/04/22 03:12 Home Medications Medication Instructions Recorded Confirmed Type atorvastatin 80 mg tablet 80 mg PO HS 06/12/19 08/03/22 History bimatoprost 0.01 % eye drops 1 drp OPB HS 06/12/19 08/03/22 History (Marion) clopidogrel 75 mg tablet 75 mg PO QAM 06/12/19 08/03/22 History fluticasone propionate 50 2 spray intranasal DAILY 06/12/19 08/03/22 History mcg/actuation nasal spray,suspension (Flonase Allergy Relief) levothyroxine 25 mcg tablet 25 mcg PO DAILYBB 06/12/19 08/03/22 History multivitamin 1 tab PO QAM 06/12/19 08/03/22 History nitroglycerin 0.4 mg sublingual 0.4 mg sublingual DIRECTED PRN 06/12/19 08/03/22 History tablet Angina omeprazole 20 mg tablet,delayed 20 mg PO DAILY 06/12/19 08/03/22 History release ropinirole 0.25 mg tablet 0.25 mg PO HS 06/12/19 08/03/22 History metformin 500 mg tablet 500 mg PO BIDM 07/13/20 08/03/22 History docusate sodium 100 mg tablet 100 mg PO BID PRN Constipation 11/11/20 08/03/22 History (Stool Softener) magnesium oxide 400 mg PO DAILY 11/11/20 08/03/22 History netarsudil 0.02 % eye drops 1 drp OPB HS 11/11/20 08/03/22 History (Rhopressa) evolocumab 140 mg/mL subcutaneous 140 mg subcut .Q14 DAYS 02/27/21 08/03/22 History pen injector (Repatha Denys) glipizide 5 mg tablet 5 - 10 mg PO DAILY 02/27/21 08/03/22 History isosorbide mononitrate 60 mg 120 mg PO DAILY 02/27/21 08/03/22 History tablet,extended release 24 hr warfarin 5 mg tablet 5 mg PO DAILY@1600 02/27/21 08/03/22 History Cranberry Caps 360 mg PO DAILY 08/29/21 08/03/22 History diphenhydramine 25 2 tab PO HS PRN Pain-sleep 08/29/21 08/03/22 History mg-acetaminophen 500 mg tablet (Tylenol PM Extra Strength) montelukast 10 mg tablet 10 mg PO DAILY 08/29/21 08/03/22 History iron,carbonyl 65 mg-vitamin C 125 1 tab PO DAILY 07/12/22 08/03/22 History mg tablet,delayed release (Vitron-C) acetaminophen 500 mg tablet 1,000 mg PO Q6H PRN Pain 08/03/22 08/03/22 History (Tylenol Extra Strength) furosemide 20 mg tablet (Lasix) 20 mg PO DAILY 08/03/22 08/03/22 History gabapentin 300 mg capsule 600 mg PO HS 08/03/22 08/03/22 History metoprolol succinate 100 mg 100 mg PO HS 08/03/22 08/03/22 History tablet,extended release 24 hr metoprolol succinate 100 mg 150 mg PO QAM 08/03/22 08/03/22 History tablet,extended release 24 hr Past Med/Surg History Medical History (Updated 08/03/22 @ 22:00 by Emmanuelle Post PA-C) Cardiac murmur no longer since heart valve surgery 02/2019 Chronic back pain Chronic combined systolic and diastolic heart failure Diabetes mellitus, type 2 GERD (gastroesophageal reflux disease) Glaucoma History of transcatheter aortic valve replacement (TAVR) Hyperlipidemia Hypertension Hypothyroidism Hypoxia, sleep related uses oxygen at hs 2.5 Laryngeal spasm On anticoagulant therapy on plavix daily On home oxygen therapy 2.5 LITER AT HS Osteoarthritis Restless leg syndrome Tachy-tanner syndrome Surgical History History of abdominal surgery for bowel obstruction History of aortic valve replacement 02/26/19 @ [facility] [place]--follows with Dr. Arredondo History of appendectomy History of cardiac cath x4 with a total of 4 stents--last--12/2018 @ [facility] [place] x1 DRUG ELUTING STENT History of colonoscopy History of esophagogastroduodenoscopy (EGD) History of heart artery stent a total of 4 stents--last--12/2018 @ [facility] [place] x1 DRUG ELUTING STENT History of hip surgery left 2 screws placed after total hip replacement History of lumbar laminectomy for spinal cord decompression x2 History of right cataract surgery History of tonsillectomy History of tooth extraction all teeth removed History of total hysterectomy with bilateral salpingo-oophorectomy (BSO) History of total left hip replacement History of total left knee replacement (TKR) History of total right knee replacement (TKR) S/P placement of cardiac pacemaker Aug 2021 Status post glaucoma surgery right eye Status post trigger finger release left hand Family History Mother Diabetes Osteoporosis Heart disease Grandmother (Maternal) Diabetes Father Heart disease Other Asthma No family history of adverse response to anesthesia Social History Smoking Status: Never smoker Tobacco Type: Cigarettes Second Hand Exposure: No; Do You Dip or Chew Tobacco: No; Hx Alcohol Use: No Hx Substance Use: No Preferred Language: Irish Communication Ability: Effective Conference And Event Organiser Required: No Beliefs That Will Affect Care: None marital status: Current Living Situation: Spouse Current Living Situation Comment: Lives with Feels Safe at Home: Yes Assistive Devices: Cane, Denture - Upper, Denture - Lower, Glasses, Hearing Aid - Left, Hearing Aid - Right, Oxygen - at Night and Walker Review of Systems Review of Systems: All systems reviewed & are unremarkable except as noted in HPI & below Physical Exam Physical Exam: General: no distress, WDWN Head: normocephalic, atraumatic Eyes: conjunctiva non-injected, anicteric ENT: normal inspection external ears, nose, mucous membranes moist Neck: supple, trachea midline Lungs: no respiratory distress,+rales bilateral bases CV: RRR, + murmur, 1+ pretibial edema Abd: normal BS, soft, non-tender Ext: no cyanosis, no calf tenderness Neuro: A&O x 3, no focal deficits noted, normal affect Skin: warm, dry Results & Data Results & Data ([facility]) Vital Signs (Past 12 Hours) Vital Signs Temp Pulse Pulse Resp BP BP Pulse Ox 08/03/22 20:00 89 28 H 152/75 H 86 L 08/03/22 19:53 08/03/22 17:44 36.8 C 95 H 16 148/81 H 92 O2 Del Method 08/03/22 20:00 Room Air 08/03/22 19:53 Room Air 08/03/22 17:44 Room Air Laboratory Results Short CBC 08/03/22 Range/Units 19:05 WBC 7.22 (4.8-10.8) K/ul Hgb 10.9 L (12.0-16.0) g/dl Hct 34.6 (34.1-44.9) % Plt Count 318 (130-400) K/uL BMP 08/03/22 19:05 Sodium 142 Potassium 4.6 Chloride 104 Carbon Dioxide 29 BUN 25 H Creatinine 0.90 Glucose 136 H Calcium 9.1 Liver Function 08/03/22 Range/Units 19:05 Total Bilirubin 0.5 (0.2-1.0) mg/dl AST 21 (13-39) U/L ALT 24 (7-52) U/L Alkaline Phosphatase 52 (34-104) U/L Albumin 3.8 (3.4-5.0) gm/dl Diagnostic Findings Chest X-Ray 08/03/22 17:50 XR chest 1V portable CLINICAL HISTORY: Dyspnea TECHNIQUE: Single frontal radiograph of the chest was obtained. Comparison: Comparison is made to chest radiograph 07/14/2022 FINDINGS: Dual lead pacemaker is seen. Cardiomegaly is noted. The aortic arch is calcified. Reticular interstitial opacities are seen. There is blunting of the costophrenic angle on the left. IMPRESSION: Blunting of the left costophrenic angle may represent a small pleural effusion. Otherwise no airspace opacities are seen. Stable cardiomegaly. ACT 112: Negative or not required by law. Electronically signed by: Chandler Viera M.D. 08/03/2022 8:06 PM ECG Findings: + paced rhythm Supervising Physician Co-Signing Physician Notes IM ATTENDING : Patient seen and examined. History obtained from patient and records. Preceding documentation by Ms. Emmanuelle Post PA-C reviewed. In addition, patient did not tolerate Ranexa Rx prescribed on discharge following last confinement. Patient cited dizziness, fatigue, confusion symptoms recent outpatient PCP visit from 2 weeks ago. FINAL ASSESSMENT AND PLAN as follows : Acute hypoxemic respiratory failure Underlying pulmonary hypertension/COPD/ILD as per records secondary to decompensated heart failure secondary to unstable angina over the last 2 weeks (Ranolazine intolerance) hx chronic systolic heart failure (EF 35 to 40%, TTE 2021) Valvular heart disease (history AF status post TAVR, hx mild paravalvular aortic valve prosthesis regurgitation, moderate MS/TR, mild MR) History CAD status post stent SSS status post PPM, paced rhythm, INR supratherapeutic hx PVD status post surgery hypertension, slightly elevated hyperlipidemia on statin Rx DM2 on oral medications, suboptimal control as of recent recent hemoglobin A1c of 8.3 last June 2022 6.02 May 2021 hypothyroidism, euthyroid as of recent outpatient TSH last month chronic anemia, hemoglobin at baseline PCU Supplemental O2 Baseline ABG Stat nebs now Strict I/Os, daily weights, CHF education diuretic Rx as per Cardiology Follow troponin N.p.o. 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 status, ISS BG goal 1 10-1 40 DVT prophylaxis. Coumadin INR goal between 2 and 3 if no procedural intervention from Cardiology Full code Text document was generated using [employer] recognition software. It may contain grammatical or spelling errors. Kindly contact undersigned for clarification of any documentation item in question.
[2022-08-03 22:13] LABS: Base Excess ABG 3.2 mEq/L (-9-1.8); HCO3 ABG 28 mmol/L (19-24); Oxygen Saturation ABG 98.2 % (90-95); PCO2 ABG 42 mmHg (35-46); PO2 ABG 117 mmHg (80-95); pH ABG 7.43 (7.35-7.45)
[2022-08-03 22:16] LABS: Allen Test Pos (Pos)
[2022-08-03 22:41] LABS: Appearance Urine Clear (Clear); Bilirubin Urine Negative (Negative); Blood Urine Negative (Negative); Color Urine Yellow; Glucose Urine UA Negative (Negative); Ketones Urine Negative (Negative); Leukocyte Esterase Urine Negative (Negative); Nitrite Urine Negative (Negative); Protein Urine Negative (Negative); Specific Gravity Urine > 1.045 (1.000-1.030); Urobilinogen Urine Negative (Negative); pH Urine 7.5 (4.5-7.5)
[2022-08-03] MEDS: MAGNESIUM SULFATE / D5W 1 GM/100 ML BAG IV SCH (22:49)
[2022-08-04] MEDS ORDERED: METOPROLOL TARTRATE 1 MG/ML VIAL IV STA (00:59)
[2022-08-04] MEDS ORDERED: traMADol HCL 50 MG TABLET PO PRN (01:02)
[2022-08-04] MEDS ORDERED: CARBOHYDRATES FOR HYPOGLYCEMIA PO PRN (01:02)
[2022-08-04] MEDS ORDERED: GLUCAGON FOR INJ 1 MG VIAL SQ PRN (01:02)
[2022-08-04] MEDS ORDERED: NITROGLYCERIN SL 0.4 MG/TAB TAB SL PRN (01:02)
[2022-08-04] MEDS ORDERED: PROMETHAZINE HCL 12.5 MG in SODIUM CHLORIDE 0.9% 50 ML IV PRN (01:02)
[2022-08-04] MEDS ORDERED: ACETAMINOPHEN 325 MG TAB PO PRN (01:02)
[2022-08-04] MEDS ORDERED: DEXTROSE 50% 50 ML SYRINGE IV PRN (01:02)
[2022-08-04] MEDS ORDERED: GLUCOSE 40% GEL 15 GM TUBE PO PRN (01:02)
[2022-08-04] MEDS ORDERED: GLUCOSE 10 TAB/TUBE PO PRN (01:02)
[2022-08-04] MEDS ORDERED: DOCUSATE SODIUM 100 MG CAP PO PRN (01:18)
[2022-08-04] MEDS: MAGNESIUM SULFATE / D5W 1 GM/100 ML BAG IV SCH ×3 (01:36→04:46)
[2022-08-04] MEDS: INSULIN ASPART PER UNIT SC SCH ×6 (01:38→21:02)
[2022-08-04] MEDS: LANTUS PER UNIT CHARGE SQ SCH ×2 (03:43→21:02)
[2022-08-04] MEDS: LEVOTHYROXINE SODIUM 25 MCG TABLET PO SCH (04:47)
[2022-08-04 06:08] LABS: Basophils # (auto) 0.02 K/uL (0-0.2); Basophils % (auto) 0.4 %; Eosinophils # (auto) 0.06 K/uL (0-0.50); Eosinophils % (auto) 1.1 %; Hematocrit (blood only) 30.8 % (34.1-44.9); Hemoglobin 9.9 g/dl (12.0-16.0); Immature Granulocytes # (auto) 0.03 K/uL (0.00-0.02); Immature Granulocytes % (auto) 0.5 %; Lymphocytes # (auto) 1.14 K/uL (1.2-3.4); Mean Corpuscular Hemoglobin 31.3 pg (25.0-34.0); Mean Corpuscular Hgb Conc 32.1 g/dL (32.0-36.0); Mean Corpuscular Volume 97.5 fL (80.0-100.0); Mean Platelet Volume 9.7 fL (9.4-12.3); Monocytes # (auto) 0.45 K/uL (0.24-0.82); Monocytes % (auto) 7.9 %; Neutrophils # (auto) 4.01 K/uL (1.4-6.5); Neutrophils % (auto) 70.1 %; Platelet Count 294 K/uL (130-400); RDW Coefficient of Variation 14.8 % (11.5-14.5); Red Blood Count 3.16 M/uL (3.93-5.22); White Blood Count 5.71 K/ul (4.8-10.8)
[2022-08-04 06:25] LABS: INR 3.4 (0.9-1.1); Prothrombin Time 33.5 Seconds (9.0-12.0)
[2022-08-04 06:36] LABS: Troponin I High Sensitivity 22.4 pg/ml (0-14)
[2022-08-04 06:40] LABS: Calcium 8.8 mg/dl (8.5-10.1); Creatinine Clr Calc Pharmacy 47.2 ml/min; Est GFR (Non-African American) 60.4 ml/min; Magnesium 2.2 mg/dl (1.7-2.4); Potassium 3.9 mmol/L (3.5-5.1)
[2022-08-04] MEDS ORDERED: CRANBERRY PO SCH (09:00)
[2022-08-04] MEDS ORDERED: LANTUS PER UNIT CHARGE SQ SCH (09:00)
--- NOTE | 2022-08-04 09:08 | Cardiology Consultation ---
Date of Consultation August 04, 2022 Assessment & Plan (1) Acute on chronic heart failure with reduced ejection fraction and diastolic dysfunction: (2) Coronary artery disease with angina pectoris: (3) Pulmonary edema: (4) Hypoxia: (5) Hypomagnesemia: Plan Patient with complex cardiovascular history, as above, presenting with signs/symptoms of acute on chronic HFrEF exacerbation with evidence of volume overload on exam. Patient was non compliant with outpatient diuretics over the last week, likely contributing. She was to take furosemide 20 mg daily, and admits to only taking 2 x per week as stated on furosemide bottle (old prescription). Proceed with IV furosemide 20 mg BID. She tolerated this dose last admission with good response. Monitor I+O's. 1500 ml fluid restriction Daily weight with standing scale. Monitor renal function and electrolytes. replace magnesium. Resume home dose of metoprolol 150 mg in AM and 100 mg in PM (was not ordered on admission) Continue ASA, plavix, atorvastatin, isosorbide. Patient has inoperable coronary artery disease and angina managed medically. Consider retrial of Ranexa 500 mg BID after fluid status improves. Patient is unsure why she stopped medication. Could also consider transitioning from high dose isosorbide to nitro patch? She was previously intolerant to Jardiance. Per chart review, patient is not on ERNST/ARB due to hyperkalemia. Will not trial spironolactone Case discussed with Dr. Arredondo. Will follow. Supervising Physician Co-Signing Physician Notes Patient was seen and personally examined. History and issues as well outlined above. 82-year-old female with complex coronary and valvular heart disease and chronic heart failure with reduced ejection fraction presents with signs and symptoms of volume overload with increasing dyspnea weight gain and edema. Patient has had lapse in diuretic dosing post recent hospital discharge Once again we will optimize medical therapies after course of diuresis. Already improved this morning historically though exam reflects lower extremity edema and rales at the bases Will follow in hospital History of Present Illness Reason for Consultation: SOB; CHF Requesting Physician: Dr. Becker Attending Physician: Dr. Arredondo History of Present Illness Patient is a complex 82 year old female, known to [facility] (Dr. Arredondo/Jesse Cole PA-C). History includes: 1. ASCVD 1. Status post PCI of the proximal LAD with a DENISE on on May 19, 2017 2. Status post PCI of the mid LAD with a 2.75 x 26 mm Resolute Segundo drug eluting stent (overlapping with the previously placed Xience drug eluting) on 01/25/2019 3. Presentation in November 2020 with crescendo angina. Diagnostic cardiac catheterization demonstrating a 95% mid LAD stenosis distal to the prior stent with intervention complicated by significant dissection of the left main coronary artery extending into the left circumflex and left anterior descending. The mid LCX into the OM3 was stented with a drug eluting stent with resultant KHARI grade III flow, residual nonflow limiting dissection in the proximal LCX. Attempts to cross the LAD occlusion were unsuccessful. 4. Class 3 angina pectoris with low level exertional tolerance 2. Paroxysmal atrial fibrillation with a rapid ventricular response first documented while hospitalized at [facility] in November 2020, highly symptomatic, significant angina symptoms 3. Severe aortic valve stenosis status post February 26, 2019 TAVR with a #23 mm Najera Sade S3 Valve on 02/26/2019. 4. Calcific mitral stenosis, moderate or greater. 5. Carotid occlusive disease. Status post left carotid endarterectomy in 05/2013. Status post June 2016 right carotid endarterectomy . 6. Chronic obstructive and restrictive pulmonary disease, asthma 7. Hypertension. 8. Hyperlipidemia. 9. Diabetes mellitus with neuropathy. 10. Chronic laryngospasm. 11. Hiatal hernia. 12. Esophageal reflux. 13. Hypothyroidism. 14. RLS. 15. Mechanical fall February 27, 2021 multiple right posterior rib fractures, small hemothorax admitted to [facility] [place] trauma alert 16. 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 Echo revealed moderately LV dysfunction, 35-40%, appropriate function of TAVR, moderate mitral stenosis and severe pulm hypertension. Symptoms improved with aggressive IV diuretics. On discharge, metoprolol was increased to 150 mg in AM and 100 mg in PM. Furosemide 20 mg daily was recommended (as she was previously only taking 20 mg several times per week). Ranexa 500 mg BID also initiated to assist with angina. Upon returning home, patient felt well. Reports her chest heaviness and SOB were greatly improved. She was taking meds as prescribed. About 1 week after discharge, patient reports she stopped taking Ranexa but she is unsure why. She also thought she was to take lasix 20 mg daily for only 1 week, then reduce dose back to 20 mg - 2 days per week. After making this change, patient began to exerpience worsening SOB, with chest heaviness and radiation to her neck. Symptoms would resolve with intermittent SL nitro. She does not weigh herself daily but admits to possible 6 lb weight gain over the last few weeks. She reports worsening "wheeze" and cough with orthopnea. Increased edema also noted. Due to her progressive SOB, edema, cough and chest heaviness, she came to ER for evaluation. Chest xray with pulm vascular congestion, small pleural effusion. BNP elevated. HS troponin not significantly elevated, improved from last admission and consistent with CHF exacerbation. EKG demonstrated paced rhythm without acute changes. She was started on IV lasix on admission. Patient reports ongoing SOB this morning with cough and wheeze. Ongoing edema reported. Tolerating furosemide. BP elevated this morning. it appears she did not receive PM dose of metoprolol last night. not ordered on admission. No chest pain overnight. Notes mild chest heaviness. No dizziness or lightheadedness. Allergies Allergy/AdvReac Type Severity Reaction Status Date / Time empagliflozin Allergy Intermediate BLOOD IN Verified 08/03/22 21:31 [From Jardiance] URINE, BLADDER INFECTION carbamazepine Allergy Mild RASH Verified 08/03/22 21:31 oxaprozin Allergy Mild RASH/HIVES Verified 08/03/22 21:31 valproic acid Allergy Mild HEAD-TOE Verified 08/03/22 21:31 RASH ranolazine [From Ranexa] AdvReac Dizziness Verified 08/04/22 03:12 Home Medications Medication Instructions Recorded Confirmed Type atorvastatin 80 mg tablet 80 mg PO HS 06/12/19 08/03/22 History bimatoprost 0.01 % eye drops 1 drp OPB HS 06/12/19 08/03/22 History (Marion) clopidogrel 75 mg tablet 75 mg PO QAM 06/12/19 08/03/22 History fluticasone propionate 50 2 spray intranasal DAILY 06/12/19 08/03/22 History mcg/actuation nasal spray,suspension (Flonase Allergy Relief) levothyroxine 25 mcg tablet 25 mcg PO DAILYBB 06/12/19 08/03/22 History multivitamin 1 tab PO QAM 06/12/19 08/03/22 History nitroglycerin 0.4 mg sublingual 0.4 mg sublingual DIRECTED PRN 06/12/19 08/03/22 History tablet Angina omeprazole 20 mg tablet,delayed 20 mg PO DAILY 06/12/19 08/03/22 History release ropinirole 0.25 mg tablet 0.25 mg PO HS 06/12/19 08/03/22 History metformin 500 mg tablet 500 mg PO BIDM 07/13/20 08/03/22 History docusate sodium 100 mg tablet 100 mg PO BID PRN Constipation 11/11/20 08/03/22 History (Stool Softener) magnesium oxide 400 mg PO DAILY 11/11/20 08/03/22 History netarsudil 0.02 % eye drops 1 drp OPB HS 11/11/20 08/03/22 History (Rhopressa) evolocumab 140 mg/mL subcutaneous 140 mg subcut .Q14 DAYS 02/27/21 08/03/22 History pen injector (Brad Mcfarlane) glipizide 5 mg tablet 5 - 10 mg PO DAILY 02/27/21 08/03/22 History isosorbide mononitrate 60 mg 120 mg PO DAILY 02/27/21 08/03/22 History tablet,extended release 24 hr warfarin 5 mg tablet 5 mg PO DAILY@1600 02/27/21 08/03/22 History Cranberry Caps 360 mg PO DAILY 08/29/21 08/03/22 History diphenhydramine 25 2 tab PO HS PRN Pain-sleep 08/29/21 08/03/22 History mg-acetaminophen 500 mg tablet (Tylenol PM Extra Strength) montelukast 10 mg tablet 10 mg PO DAILY 08/29/21 08/03/22 History iron,carbonyl 65 mg-vitamin C 125 1 tab PO DAILY 07/12/22 08/03/22 History mg tablet,delayed release (Vitron-C) acetaminophen 500 mg tablet 1,000 mg PO Q6H PRN Pain 08/03/22 08/03/22 History (Tylenol Extra Strength) furosemide 20 mg tablet (Lasix) 20 mg PO DAILY 08/03/22 08/03/22 History gabapentin 300 mg capsule 600 mg PO HS 08/03/22 08/03/22 History metoprolol succinate 100 mg 100 mg PO HS 08/03/22 08/03/22 History tablet,extended release 24 hr metoprolol succinate 100 mg 150 mg PO QAM 08/03/22 08/03/22 History tablet,extended release 24 hr Patient History Medical History (Updated 08/03/22 @ 22:00 by Emmanuelle Post PA-C) Cardiac murmur no longer since heart valve surgery 02/2019 Chronic back pain Chronic combined systolic and diastolic heart failure Diabetes mellitus, type 2 GERD (gastroesophageal reflux disease) Glaucoma History of transcatheter aortic valve replacement (TAVR) Hyperlipidemia Hypertension Hypothyroidism Hypoxia, sleep related uses oxygen at hs 2.5 Laryngeal spasm On anticoagulant therapy on plavix daily On home oxygen therapy 2.5 LITER AT HS Osteoarthritis Restless leg syndrome Tachy-tanner syndrome Surgical History History of abdominal surgery for bowel obstruction History of aortic valve replacement 02/26/19 @ [facility] [place]--follows with Dr. Arredondo History of appendectomy History of cardiac cath x4 with a total of 4 stents--last--12/2018 @ [facility] [place] x1 DRUG ELUTING STENT History of colonoscopy History of esophagogastroduodenoscopy (EGD) History of heart artery stent a total of 4 stents--last--12/2018 @ [facility] [place] x1 DRUG ELUTING STENT History of hip surgery left 2 screws placed after total hip replacement History of lumbar laminectomy for spinal cord decompression x2 History of right cataract surgery History of tonsillectomy History of tooth extraction all teeth removed History of total hysterectomy with bilateral salpingo-oophorectomy (BSO) History of total left hip replacement History of total left knee replacement (TKR) History of total right knee replacement (TKR) S/P placement of cardiac pacemaker Aug 2021 Status post glaucoma surgery right eye Status post trigger finger release left hand Family History Mother Diabetes Osteoporosis Heart disease Grandmother (Maternal) Diabetes Father Heart disease Other Asthma No family history of adverse response to anesthesia Social History Smoking Status: Never smoker Tobacco Type: Cigarettes Second Hand Exposure: No; Do You Dip or Chew Tobacco: No; Hx Alcohol Use: No Hx Substance Use: No Preferred Language: Citizen Of [place] Communication Ability: Effective Dispatcher Chief [employer] Sl[employer] Required: No Beliefs That Will Affect Care: None marital status: Current Living Situation: Spouse Current Living Situation Comment: Lives with Feels Safe at Home: Yes Assistive Devices: Cane, Denture - Upper, Denture - Lower, Glasses, Hearing Aid - Left, Hearing Aid - Right, Oxygen - at Night and Walker Review of Systems Review of Systems: All systems reviewed & are unremarkable except as noted in HPI & below Physical Exam Constitutional: WD/WN, vitals as above + ill appearing; no acute distress Neck: normal visual inspection Respiratory: + cough and + audible wheezes Auscultation: + diminished lung sounds, + crackles and + wheezes Cardiovascular: Rate/Rhythm: regular rate and regular rhythm Heart Sounds: + murmur (II/ systolic murmur LSB) Vessels: + JVD Extremities: + edema (1-2+ b/l) Gastrointestinal (Abdomen): normal bowel sounds, soft, nontender, no hepatosplenomegaly Neurologic: PERRL, EOMI, accommodation nl, no face palsy, no dysarthria Psychiatric: A+Ox3, euthymic affect Results & Data ([facility]) Vital Signs (Past 12 Hours) Vital Signs Temp Pulse Pulse Resp BP Pulse Ox Pulse Ox 08/04/22 08:17 36.4 C L 89 17 166/77 H 98 08/04/22 03:12 36.8 C 83 18 125/78 98 08/04/22 01:53 88 08/04/22 01:19 08/04/22 01:06 36.6 C 80 20 149/68 H 96 08/04/22 01:02 36.6 C 80 20 149/68 H 96 08/04/22 01:02 96 08/04/22 00:46 08/04/22 00:00 83 20 170/81 H 98 08/03/22 22:00 89 26 H 137/97 96 O2 Del Method O2 Del Method O2 Flow Rate O2 Flow Rate 08/04/22 08:17 Nasal Cannula 2 08/04/22 03:12 Nasal Cannula 2.5 08/04/22 01:53 08/04/22 01:19 Nasal Cannula 2.5 08/04/22 01:06 Nasal Cannula 2.5 08/04/22 01:02 Nasal Cannula 2.5 08/04/22 01:02 Nasal Cannula 2.5 08/04/22 00:46 Nasal Cannula 2.5 08/04/22 00:00 Nasal Cannula 2.5 08/03/22 22:00 2.5 Laboratory Results Cardiac Enzymes 08/03/22 08/03/22 08/03/22 Range/Units 19:05 19:05 21:59 AST 21 (13-39) U/L Troponin I High Sens 22.5 H 24.0 H (0-14) pg/ml B-Natriuretic Peptide 1996 H (0-100) pg/ml 08/04/22 Range/Units 05:34 AST (13-39) U/L Troponin I High Sens 22.4 H (0-14) pg/ml B-Natriuretic Peptide (0-100) pg/ml Coagulation 08/03/22 08/03/22 08/04/22 Range/Units 19:05 19:05 05:34 PT 39.1 H 33.5 H (9.0-12.0) Seconds APTT 39.3 H (21.0-31.0) Seconds B-Natriuretic Peptide 1996 H (0-100) pg/ml CBC 08/03/22 08/04/22 Range/Units 19:05 05:34 WBC 7.22 5.71 (4.8-10.8) K/ul RBC 3.52 L 3.16 L (3.93-5.22) M/uL Hgb 10.9 L 9.9 L (12.0-16.0) g/dl Hct 34.6 30.8 L (34.1-44.9) % Plt Count 318 294 (130-400) K/uL Neut # (Auto) 5.32 4.01 (1.4-6.5) K/uL Lymph # (Auto) 1.30 1.14 L (1.2-3.4) K/uL Clare # (Auto) 0.48 0.45 (0.24-0.82) K/uL Eos # (Auto) 0.06 0.06 (0-0.50) K/uL Baso # (Auto) 0.03 0.02 (0-0.2) K/uL Comprehensive Metabolic Panel 08/03/22 08/04/22 Range/Units 19:05 05:34 Sodium 142 141 (136-145) mmol/L Potassium 4.6 3.9 (3.5-5.1) mmol/L Chloride 104 101 (98-107) mmol/L Carbon Dioxide 29 32 (21-32) mmol/L BUN 25 H 24 H (6-23) mg/dl Creatinine 0.90 0.89 (0.6-1.2) mg/dl Glucose 136 H 142 H (70-99(Fasting)) mg/dl Calcium 9.1 8.8 (8.5-10.1) mg/dl AST 21 (13-39) U/L ALT 24 (7-52) U/L Alkaline Phosphatase 52 (34-104) U/L Total Protein 6.6 (6.0-8.3) gm/dl Albumin 3.8 (3.4-5.0) gm/dl Intake and Output 08/03/22 08/04/22 08/04/22 22:59 06:59 14:59 Intake Total 400.833 / 400.833 Balance 400.833 / 400.833 Intake: IV 350.833 / 350.833 Magnesium Sulfate / D5w 1 gm In 350.833 / 350.833 100 ml @ 50 mls/hr IV Q2H [facility] Rx#:[id number] Oral 50 / 50 Other: Weight 74.7 kg Weight Measurement Method Standing Scale Diagnostic Findings telemetry reviewed: atrial sensed, likely ventricular paced (chronic) but not able to be viewed on telemetry. HR's in the 80-90 bpm range this morning EKG - Atrial-sensed ventricular-paced rhythm Chest X-Ray 08/03/22 17:50 XR chest 1V portable CLINICAL HISTORY: Dyspnea TECHNIQUE: Single frontal radiograph of the chest was obtained. Comparison: Comparison is made to chest radiograph 07/14/2022 FINDINGS: Dual lead pacemaker is seen. Cardiomegaly is noted. The aortic arch is calcified. Reticular interstitial opacities are seen. There is blunting of the costophrenic angle on the left. IMPRESSION: Blunting of the left costophrenic angle may represent a small pleural effusion. Otherwise no airspace opacities are seen. Stable cardiomegaly. echo report reviewed from last admission, Jun 2022: Mild concentric LVH large sized septal, apical, lateral and inferior wall motion abnormality. LV systolic function moderately reduced at 35-40% Post TAVR with normal function. Mild intraprosthetic AI severe MAC with moderate mitral stenosis, mild MR Moderate TR Severe pulm hypertension Diastolic dysfunction, grade II Medications Administered Current Inpatient Medications Acetaminophen (Acetaminophen 325 Mg Tab) 650 mg PO Q4H PRN PRN Reason: Pain or Fever Stop: 09/03/22 01:01 Atorvastatin Calcium (Atorvastatin 40 Mg Tab) 80 mg PO HS [facility] Stop: 09/03/22 20:59 Bimatoprost (Bimatoprost 0.01% Op Soln 2.5 Ml Btl) 1 drops OP HS PRIMO Stop: 09/03/22 20:59 Clopidogrel Bisulfate (Clopidogrel Bisulfate 75 Mg Tab) 75 mg PO QAM [facility] Stop: 09/03/22 08:59 Last Admin: 08/04/22 09:48 Dose: 75 mg Dextrose (Dextrose 50% 50 Ml Syringe) 25 - 50 ml IV UD PRN; Protocol PRN Reason: Hypoglycemia Protocol Stop: 09/03/22 01:01 Docusate Sodium (Docusate Sodium 100 Mg Cap) 100 mg PO BID PRN PRN Reason: Constipation Stop: 09/03/22 01:17 Fluticasone Propionate (Fluticasone Propionate Na Spr 16 Gm Btl) 2 sprays NA DAILY [facility] Stop: 09/03/22 08:59 Last Admin: 08/04/22 09:48 Dose: 2 sprays Furosemide (Furosemide Inj 20 Mg/2 Ml Vial) 20 mg IV BID PRIMO Stop: 09/03/22 08:59 Last Admin: 08/04/22 09:48 Dose: 20 mg Gabapentin (Gabapentin 600 Mg Tab) 600 mg PO HS [facility] Stop: 09/03/22 20:59 Glucagon (Glucagon For Inj 1 Mg Vial) 1 mg SQ UD PRN; Protocol PRN Reason: Hypoglycemia Protocol Stop: 09/03/22 01:01 Glucose (Glucose 40% Gel 15 Gm Tube) 15 - 30 gm PO UD PRN; Protocol PRN Reason: Hypoglycemia Protocol Stop: 09/03/22 01:01 Glucose (Glucose 10 Tab/Tube) 4 - 8 tab PO UD PRN; Protocol PRN Reason: Hypoglycemia Treatment Stop: 09/03/22 01:01 Promethazine HCl 12.5 mg/ (Sodium Chloride) 50.5 mls @ 202 mls/hr IV Q6H PRN PRN Reason: Nausea And Vomiting Stop: 09/03/22 01:01 Insulin Aspart (Insulin Aspart Per Unit) 0 units SC ACHS [facility] Stop: 09/03/22 01:01 Last Admin: 08/04/22 08:17 Dose: 1 units Insulin Glargine (Lantus Per Unit Charge) 10 units SQ HS [facility] Stop: 09/03/22 02:49 Last Admin: 08/04/22 03:43 Dose: 10 units Isosorbide Mononitrate (Isosorbide Clare Extended Rel 60 Mg Tabcr) 120 mg PO DAILY [facility] Stop: 09/03/22 08:59 Last Admin: 08/04/22 09:47 Dose: 120 mg Levothyroxine Sodium (Levothyroxine Sodium 25 Mcg Tablet) 25 mcg PO DAILYBB [facility] Stop: 09/03/22 06:29 Last Admin: 08/04/22 04:47 Dose: 25 mcg Metoprolol Succinate (Metoprolol Succ 50mg Ext Rel Tab) 150 mg PO QAM [facility] Stop: 09/03/22 08:59 Last Admin: 08/04/22 09:48 Dose: 150 mg Metoprolol Succinate (Metoprolol Succ 50mg Ext Rel Tab) 100 mg PO QPM [facility] Stop: 09/03/22 20:59 Miscellaneous (Netarsudil [Rhopressa] - Order Awaiting Action) 1 each N/A QS [facility] Stop: 09/03/22 07:59 Miscellaneous (Carbohydrates For Hypoglycemia ) 15 - 30 gm PO UD PRN PRN Reason: Hypoglycemia Protocol Stop: 09/03/22 01:01 Montelukast Sodium (Montelukast Sodium 10 Mg Tablet) 10 mg PO PM [facility] Stop: 09/03/22 20:59 Multivitamins (Multivitamin Tab) 1 tab PO QAM [facility] Stop: 09/03/22 08:59 Last Admin: 08/04/22 09:47 Dose: 1 tab Nitroglycerin (Nitroglycerin Sl 0.4 Mg/Tab Tab) 0.4 mg SL UD PRN PRN Reason: Angina Stop: 09/03/22 01:01 Pantoprazole Sodium (Pantoprazole 40 Mg Tab) 40 mg PO DAILY [facility] Stop: 09/03/22 08:59 Last Admin: 08/04/22 09:47 Dose: 40 mg Tramadol HCl (Tramadol Hcl 50 Mg Tablet) 25 - 50 mg PO Q4H PRN PRN Reason: Pain Stop: 09/03/22 01:01 (1) Pulmonary edema Chronicity: acute Qualified Code(s): J81.0 - Acute pulmonary edema
[2022-08-04] MEDS: ISOSORBIDE MONO EXTENDED REL 60 MG TABCR PO SCH (09:47)
[2022-08-04] MEDS: PANTOprazole 40 MG TAB PO SCH (09:47)
[2022-08-04] MEDS: MULTIVITAMIN TAB PO SCH (09:47)
[2022-08-04] MEDS: FUROSEMIDE INJ 20 MG/2 ML VIAL IV SCH ×2 (09:48→20:45)
[2022-08-04] MEDS: CLOPIDOGREL BISULFATE 75 MG TAB PO SCH (09:48)
[2022-08-04] MEDS: METOPROLOL SUCC 50MG EXT REL TAB PO SCH ×2 (09:48→20:47)
[2022-08-04] MEDS: FLUTICASONE PROPIONATE NA SPR 16 GM BTL SCH (09:48)
--- NOTE | 2022-08-04 13:11 | Hospitalist Progress Note ---
Date of Service August 04, 2022 Assessment & Plan (1) Shortness of breath: (2) Angina pectoris: (3) Chronic combined systolic and diastolic heart failure: (4) Hypoxia: (5) Hypomagnesemia: (6) Tachy-tanner syndrome: (7) S/P placement of cardiac pacemaker: (8) CAD (coronary artery disease): (9) S/P TAVR (transcatheter aortic valve replacement): (10) Afib: (11) Hypertension: (12) Diabetes mellitus, type II: (13) Carotid stenosis: (14) Hypothyroidism: Plan: This is an 82 yo F with extensive PMH of diastolic, systolic heart failure, aortic stenosis s/p TAVR, paravalvular aortic prosthesis regurgitation, 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 Acute hypoxic respiratory failure Acute on chronic systolic heart failure Tachybradycardia syndrome status post pacemaker placement in August 2021 History of TAVR Admitted with shortness of breath. Noncompliant with outpatient diuretics. History of inoperable coronary artery disease and angina Camilo is medically. Normotensive, saturating well at 2 L/min via nasal cannula. Afebrile BNP elevated to 1900 Chest x-ray consistent with pulmonary edema PT/INR3.4 High-sensitivity troponin in 20s; similar to previous admission. Echo done during last admission of 35 to 40%; large sized apical, septal, lateral and inferior wall motion abnormality. Severe pulmonary hypertension present. Plan; Continue diuresis with Lasix 20 mg IV twice daily. Strict input and output, daily standing weight.Continue on Continue on metoprolol 150 mg in a.m. and 100 mg in p.m. Continue on aspirin, Plavix, Lipitor and isosorbide for angina. Patient to be restarted on Ranexa after fluid status improves. Chronic conditions; Atrial fibrillation-continue on metoprolol. Coumadin on hold given supratherapeutic INR. PT/INR daily Type 2 diabetes mellituscontinue on Lantus and sliding scale while inpatient. Hypothyroidismcontinue home dose of levothyroxine Full code DVT prophylaxiswarfarin on hold given supratherapeutic INR Admission and Anticipated Discharge Date Admission Date: August 03, 2022 Subjective Patient seen and examined at bedside. She reports shortness of breath; slightly improved compared to admission. Review of Systems Review of Systems: All systems reviewed & are unremarkable except as noted in Subjective Physical Exam Physical Exam: Constitutional: WD/WN, vitals as above, NAD, sitting up in bed, pleasant, conversing easily Respiratory: Bibasilar crackle heard. Cardiovascular: RRR, no murmur, no edema Vessels: no JVD or carotid bruit Chest: normal inspection of chest Abdomen: normal bowel sounds, soft, nontender, no hepatosplenomegaly Musculoskeletal: no cyanosis or clubbing, extremities motor strength 5/5 Skin: Has bruises in bilateral lower extremity. 1+ pitting edema present. Neurologic: PERRL, EOMI, accommodation nl, no face palsy, no dysarthria CN's II- XI intact bilaterally and moves all extremities Psychiatric: A+Ox3, euthymic affect Lymphatic: no cervical or axillary lymphadenopathy : deferred Results & Data Results & Data ([facility]) Vital Signs (Past 12 Hours) Vital Signs Temp Pulse Pulse Resp BP Pulse Ox O2 Del Method 08/04/22 11:29 36.6 C 84 17 125/78 96 Nasal Cannula 08/04/22 08:17 36.4 C L 89 17 166/77 H 98 Nasal Cannula 08/04/22 03:12 36.8 C 83 18 125/78 98 Nasal Cannula 08/04/22 01:53 88 08/04/22 01:19 Nasal Cannula O2 Flow Rate 08/04/22 11:29 2 08/04/22 08:17 2 08/04/22 03:12 2.5 08/04/22 01:53 08/04/22 01:19 2.5 Laboratory Results Laboratory Results WBC 5.71 K/ul (4.8-10.8) 08/04/22 05:34 RBC 3.16 M/uL (3.93-5.22) L 08/04/22 05:34 Hgb 9.9 g/dl (12.0-16.0) L 08/04/22 05:34 Hct 30.8 % (34.1-44.9) L 08/04/22 05:34 MCV 97.5 fL (80.0-100.0) 08/04/22 05:34 MCH 31.3 pg (25.0-34.0) 08/04/22 05:34 MCHC 32.1 g/dL (32.0-36.0) 08/04/22 05:34 RDW Std Deviation 53.0 fL (36.4-46.3) H 08/04/22 05:34 RDW Coeff of Omid 14.8 % (11.5-14.5) H 08/04/22 05:34 Plt Count 294 K/uL (130-400) 08/04/22 05:34 MPV 9.7 fL (9.4-12.3) 08/04/22 05:34 Immature Gran % (Auto) 0.5 % 08/04/22 05:34 Neut % (Auto) 70.1 % 08/04/22 05:34 Lymph % (Auto) 20.0 % 08/04/22 05:34 [place] % (Auto) 7.9 % 08/04/22 05:34 Eos % (Auto) 1.1 % 08/04/22 05:34 Baso % (Auto) 0.4 % 08/04/22 05:34 Neut # (Auto) 4.01 K/uL (1.4-6.5) 08/04/22 05:34 Lymph # (Auto) 1.14 K/uL (1.2-3.4) L 08/04/22 05:34 [place] # (Auto) 0.45 K/uL (0.24-0.82) 08/04/22 05:34 Eos # (Auto) 0.06 K/uL (0-0.50) 08/04/22 05:34 Baso # (Auto) 0.02 K/uL (0-0.2) 08/04/22 05:34 Immature Gran # (Auto) 0.03 K/uL (0.00-0.02) H 08/04/22 05:34 PT 33.5 Seconds (9.0-12.0) H 08/04/22 05:34 INR 3.4 (0.9-1.1) H 08/04/22 05:34 APTT 39.3 Seconds (21.0-31.0) H 08/03/22 19:05 PTT Ratio 1.4 08/03/22 19:05 ABG pH 7.43 (7.35-7.45) 08/03/22 21:59 ABG pCO2 42 mmHg (35-46) 08/03/22 21:59 ABG pO2 117 mmHg (80-95) H 08/03/22 21:59 ABG HCO3 28 mmol/L (19-24) H 08/03/22 21:59 ABG O2 Saturation 98.2 % (90-95) H 08/03/22 21:59 ABG Base Excess 3.2 mEq/L (-9-1.8) H 08/03/22 21:59 Manolo Test Pos (Pos) 08/03/22 21:59 Oxygen Given ROOM AIR 08/03/22 21:59 Sodium 141 mmol/L (136-145) 08/04/22 05:34 Potassium 3.9 mmol/L (3.5-5.1) 08/04/22 05:34 Chloride 101 mmol/L (98-107) 08/04/22 05:34 Carbon Dioxide 32 mmol/L (21-32) 08/04/22 05:34 Anion Gap 8 (3-11) 08/04/22 05:34 BUN 24 mg/dl (6-23) H 08/04/22 05:34 Creatinine 0.89 mg/dl (0.6-1.2) 08/04/22 05:34 Est Cr Clr Drug Dosing 47.2 ml/min 08/04/22 05:34 Est GFR ( Amer) 70.0 ml/min 08/04/22 05:34 Est GFR (Non-Af Amer) 60.4 ml/min 08/04/22 05:34 BUN/Creatinine Ratio 27.0 (10-20) H 08/04/22 05:34 Glucose 142 mg/dl (70-99(Fasting)) H 08/04/22 05:34 POC Glucose 198 mg/dl (70-99) H 08/04/22 11:26 Calcium 8.8 mg/dl (8.5-10.1) 08/04/22 05:34 Magnesium 2.2 mg/dl (1.7-2.4) 08/04/22 05:34 Total Bilirubin 0.5 mg/dl (0.2-1.0) 08/03/22 19:05 AST 21 U/L (13-39) 08/03/22 19:05 ALT 24 U/L (7-52) 08/03/22 19:05 Alkaline Phosphatase 52 U/L (34-104) 08/03/22 19:05 Troponin I High Sens 22.4 pg/ml (0-14) H 08/04/22 05:34 B-Natriuretic Peptide 1996 pg/ml (0-100) H 08/03/22 19:05 Total Protein 6.6 gm/dl (6.0-8.3) 08/03/22 19:05 Albumin 3.8 gm/dl (3.4-5.0) 08/03/22 19:05 Globulin 2.8 gm/dl (2.5-4.0) 08/03/22 19:05 Albumin/Globulin Ratio 1.4 (0.9-2) 08/03/22 19:05 Urine Color Yellow 08/03/22 22:27 Urine Appearance Clear (Clear) 08/03/22 22:27 Urine pH 7.5 (4.5-7.5) 08/03/22 22:27 Ur Specific [place] > 1.045 (1.000-1.030) H 08/03/22 22:27 Urine Protein Negative (Negative) 08/03/22 22:27 Urine Glucose (UA) Negative (Negative) 08/03/22 22:27 Urine Ketones Negative (Negative) 08/03/22 22:27 Urine Blood Negative (Negative) 08/03/22 22:27 Urine Nitrite Negative (Negative) 08/03/22 22: Urine Bilirubin Negative (Negative) 08/03/22 22:27 Urine Urobilinogen Negative (Negative) 08/03/22 22:27 Ur Leukocyte Esterase Negative (Negative) 08/03/22 22:27 SARS-CoV-2, RNA, NAAT NEGATIVE (NEGATIVE) 08/03/22 19:05 Impressions Chest X-Ray 08/03/22 17:50 XR chest 1V portable CLINICAL HISTORY: Dyspnea TECHNIQUE: Single frontal radiograph of the chest was obtained. Comparison: Comparison is made to chest radiograph 07/14/2022 FINDINGS: Dual lead pacemaker is seen. Cardiomegaly is noted. The aortic arch is calcified. Reticular interstitial opacities are seen. There is blunting of the costophrenic angle on the left. IMPRESSION: Blunting of the left costophrenic angle may represent a small pleural effusion. Otherwise no airspace opacities are seen. Stable cardiomegaly. ACT 112: Negative or not required by law. Electronically signed by: Chandler Viera M.D. 08/03/2022 8:06 PM
[2022-08-04] MEDS: ATORVASTATIN 40 MG TAB PO SCH (20:45)
[2022-08-04] MEDS: MONTELUKAST SODIUM 10 MG TABLET PO SCH (20:48)
[2022-08-04] MEDS: BIMATOPROST 0.01% OP SOLN 2.5 ML BTL OP SCH (20:49)
[2022-08-04] MEDS: GABAPENTIN 600 MG TAB PO SCH (21:08)
[2022-08-04] MEDS: MELATONIN 3 MG TAB PO PRN (22:43)
[2022-08-05] MEDS: LEVOTHYROXINE SODIUM 25 MCG TABLET PO SCH (05:15)
--- NOTE | 2022-08-05 06:16 | Electrocardiogram Report ---
Test Reason : Blood Pressure : / mmHG Vent. Rate : 096 BPM Atrial Rate : 096 BPM P-R Int : 174 ms QRS Dur : 110 ms QT Int : 364 ms P-R-T Axes : 020 107 061 degrees QTc Int : 459 ms Atrial-sensed ventricular-paced rhythm Abnormal ECG When compared with ECG of 12-JUL-2022 10:57, Vent. rate has increased BY 9 BPM Confirmed by Jose L Jason ([id number]) on 08/05/2022 6:16:00 AM Referred By: REFERRED SELF Confirmed By:Jose L Jason
[2022-08-05 06:33] LABS: Basophils # (auto) 0.02 K/uL (0-0.2); Basophils % (auto) 0.4 %; Eosinophils # (auto) 0.06 K/uL (0-0.50); Eosinophils % (auto) 1.3 %; Hematocrit (blood only) 29.9 % (34.1-44.9); Hemoglobin 9.5 g/dl (12.0-16.0); Immature Granulocytes # (auto) 0.03 K/uL (0.00-0.02); Immature Granulocytes % (auto) 0.6 %; Lymphocytes # (auto) 1.15 K/uL (1.2-3.4); Lymphocytes % (auto) 24.8 %; Mean Corpuscular Hgb Conc 31.8 g/dL (32.0-36.0); Mean Corpuscular Volume 97.7 fL (80.0-100.0); Mean Platelet Volume 9.5 fL (9.4-12.3); Monocytes # (auto) 0.51 K/uL (0.24-0.82); Neutrophils # (auto) 2.86 K/uL (1.4-6.5); Neutrophils % (auto) 61.9 %; Platelet Count 265 K/uL (130-400); RDW Coefficient of Variation 14.7 % (11.5-14.5); Red Blood Count 3.06 M/uL (3.93-5.22); White Blood Count 4.63 K/ul (4.8-10.8)
[2022-08-05 06:57] LABS: Calcium 8.6 mg/dl (8.5-10.1); Creatinine Clr Calc Pharmacy 39.2 ml/min; Est GFR (African American) 57.3 ml/min; Est GFR (Non-African American) 49.4 ml/min; Magnesium 1.6 mg/dl (1.7-2.4)
[2022-08-05] MEDS: METOPROLOL SUCC 50MG EXT REL TAB PO SCH ×2 (09:01→19:50)
[2022-08-05] MEDS: CLOPIDOGREL BISULFATE 75 MG TAB PO SCH (09:01)
[2022-08-05] MEDS: ISOSORBIDE MONO EXTENDED REL 60 MG TABCR PO SCH (09:01)
[2022-08-05] MEDS: MULTIVITAMIN TAB PO SCH (09:01)
[2022-08-05] MEDS: INSULIN ASPART PER UNIT SC SCH ×4 (09:01→20:26)
[2022-08-05] MEDS: PANTOprazole 40 MG TAB PO SCH (09:01)
[2022-08-05] MEDS: FLUTICASONE PROPIONATE NA SPR 16 GM BTL SCH (09:02)
[2022-08-05] MEDS: FUROSEMIDE INJ 20 MG/2 ML VIAL IV SCH (09:02)
[2022-08-05] MEDS: MAGNESIUM SULFATE / D5W 1 GM/100 ML BAG IV SCH ×2 (09:09→11:22)
--- NOTE | 2022-08-05 10:16 | Cardiology Progress Note ---
Date of Service August 05, 2022 Assessment & Plan (1) Acute on chronic heart failure with reduced ejection fraction and diastolic dysfunction: (2) Coronary artery disease with angina pectoris: (3) Pulmonary edema: (4) Hypoxia: (5) Hypomagnesemia: Plan Patient with complex cardiovascular history, as above, presenting with signs/symptoms of acute on chronic HFrEF exacerbation with evidence of volume overload on exam. Patient was non compliant with outpatient diuretics over the last week, likely contributing. She was to take furosemide 20 mg daily, and admits to only taking 2 x per week as stated on furosemide bottle (old prescription). Symptoms improving over the last 24 hours. Improved SOB/dysppnea/chest tightness. Outputs likely not accurate. Patient down approx 3 kg. Continue IV furosemide 20 mg BID today. Monitor I+O's. 1500 ml fluid restriction Daily weight with standing scale. Monitor renal function and electrolytes. replace magnesium. Consider transitioning to oral furosemide 20 mg daily in the next 1-2 days. We discussed continuing daily dose on discharge. Resume home dose of metoprolol 150 mg in AM and 100 mg in PM (was not ordered on admission) Continue ASA, plavix, atorvastatin, isosorbide. Patient has inoperable coronary artery disease and angina managed medically. Consider retrial of Ranexa 500 mg BID after fluid status improves. Patient is unsure why she stopped medication. She was previously intolerant to Jardiance. Per chart review, patient is not on ERNST/ARB due to hyperkalemia. Will not trial spironolactone Case discussed with Dr. Arredondo. Will follow. Admission and Anticipated Discharge Date Admission Date: August 03, 2022 Supervising Physician Co-Signing Physician Notes Patient seen and examined, chart, medications, telemetry reviewed. No arrhythmias. Symptoms substantially improved with diuresis. Assessment as above. Physical exam demonstrates improved respiratory status and lower extremity edema Plan Continue IV diuretics additional day discontinued tonight and resume furosemide 20 mg on a daily basis post discharge Will consider reinstitution of Ranexa post hospital discharge Patient has follow-up appoint with cardiology Monday Subjective Patient resting in chair comfortably. reports her dyspnea/SOB has greatly improved from admission. No longer requiring supplemental O2. Improved conversational dyspnea. Slept better last night. Cough also improved. Edema improving as well. Chest tightness resolved Review of Systems Review of Systems: All systems reviewed & are unremarkable except as noted in HPI & below Physical Exam Constitutional: WD/WN, vitals as above no acute distress Neck: normal visual inspection Respiratory: Auscultation: + diminished lung sounds and + crackles (faint at bases, but improved) Cardiovascular: Rate/Rhythm: regular rate and regular rhythm Heart Sounds: + murmur (II/ systolic murmur LSB) Vessels: + JVD Extremities: + edema (1 + pretibial) Gastrointestinal (Abdomen): normal bowel sounds, soft, nontender, no hepatosplenomegaly Neurologic: PERRL, EOMI, accommodation nl, no face palsy, no dysarthria Psychiatric: A+Ox3, euthymic affect Results & Data ([facility]) Vital Signs (Past 12 Hours) Vital Signs Temp Pulse Pulse Resp BP Pulse Ox O2 Del Method 08/05/22 07:55 36.6 C 72 16 126/64 98 Room Air 08/05/22 07:33 74 08/05/22 01:02 08/05/22 03:10 36.4 C L 59 L 18 132/73 99 Nasal Cannula 08/05/22 00:14 77 08/04/22 23:04 36.7 C 77 18 87/56 L 97 Nasal Cannula 08/04/22 23:01 Room Air O2 Del Method O2 Flow Rate 08/05/22 07:55 1 08/05/22 07:33 08/05/22 01:02 Room Air 08/05/22 03:10 2 08/05/22 00:14 08/04/22 23:04 2.0 08/04/22 23:01 Laboratory Results CBC 08/05/22 Range/Units 06:10 WBC 4.63 L (4.8-10.8) K/ul RBC 3.06 L (3.93-5.22) M/uL Hgb 9.5 L (12.0-16.0) g/dl Hct 29.9 L (34.1-44.9) % Plt Count 265 (130-400) K/uL Neut # (Auto) 2.86 (1.4-6.5) K/uL Lymph # (Auto) 1.15 L (1.2-3.4) K/uL [place] # (Auto) 0.51 (0.24-0.82) K/uL Eos # (Auto) 0.06 (0-0.50) K/uL Baso # (Auto) 0.02 (0-0.2) K/uL Comprehensive Metabolic Panel 08/05/22 Range/Units 06:10 Sodium 141 (136-145) mmol/L Potassium 4.0 (3.5-5.1) mmol/L Chloride 101 (98-107) mmol/L Carbon Dioxide 35 H (21-32) mmol/L BUN 22 (6-23) mg/dl Creatinine 1.05 (0.6-1.2) mg/dl Glucose 142 H (70-99(Fasting)) mg/dl Calcium 8.6 (8.5-10.1) mg/dl Intake and Output 08/04/22 08/05/22 08/05/22 22:59 06:59 14:59 Output Total 450 / 1050 100 / 1050 Balance -450 / -300 -100 / -300 Output: Urine 450 / 1050 100 / 1050 Other: Weight 71.7 kg Weight Measurement Method Standing Scale Diagnostic Findings Telemetry - Appears NSR in the 60's with intermittent pacing Medications Administered Current Inpatient Medications Acetaminophen (Acetaminophen 325 Mg Tab) 650 mg PO Q4H PRN PRN Reason: Pain or Fever Stop: 09/03/22 01:01 Atorvastatin Calcium (Atorvastatin 40 Mg Tab) 80 mg PO HS [facility] Stop: 09/03/22 20:59 Last Admin: 08/04/22 20:45 Dose: 80 mg Bimatoprost (Bimatoprost 0.01% Op Soln 2.5 Ml Btl) 1 drops OP HS [facility] Stop: 09/03/22 20:59 Last Admin: 08/04/22 20:49 Dose: 1 drops Clopidogrel Bisulfate (Clopidogrel Bisulfate 75 Mg Tab) 75 mg PO QAM [facility] Stop: 09/03/22 08:59 Last Admin: 08/05/22 09:01 Dose: 75 mg Dextrose (Dextrose 50% 50 Ml Syringe) 25 - 50 ml IV UD PRN; Protocol PRN Reason: Hypoglycemia Protocol Stop: 09/03/22 01:01 Docusate Sodium (Docusate Sodium 100 Mg Cap) 100 mg PO BID PRN PRN Reason: Constipation Stop: 09/03/22 01:17 Fluticasone Propionate (Fluticasone Propionate Na Spr 16 Gm Btl) 2 sprays NA DAILY [facility] Stop: 09/03/22 08:59 Last Admin: 08/05/22 09:02 Dose: 2 sprays Furosemide (Furosemide Inj 20 Mg/2 Ml Vial) 20 mg IV BID [facility] Stop: 09/03/22 08:59 Last Admin: 08/05/22 09:02 Dose: 20 mg Gabapentin (Gabapentin 600 Mg Tab) 600 mg PO HS [facility] Stop: 09/03/22 20:59 Last Admin: 08/04/22 21:08 Dose: 600 mg Glucagon (Glucagon For Inj 1 Mg Vial) 1 mg SQ UD PRN; Protocol PRN Reason: Hypoglycemia Protocol Stop: 09/03/22 01:01 Glucose (Glucose 40% Gel 15 Gm Tube) 15 - 30 gm PO UD PRN; Protocol PRN Reason: Hypoglycemia Protocol Stop: 09/03/22 01:01 Glucose (Glucose 10 Tab/Tube) 4 - 8 tab PO UD PRN; Protocol PRN Reason: Hypoglycemia Treatment Stop: 09/03/22 01:01 Promethazine HCl 12.5 mg/ (Sodium Chloride) 50.5 mls @ 202 mls/hr IV Q6H PRN PRN Reason: Nausea And Vomiting Stop: 09/03/22 01:01 Magnesium Sulfate/Dextrose (Magnesium Sulfate / D5w) 1 gm in 100 mls @ 50 mls/hr IV Q2H [facility] Stop: 08/05/22 11:59 Last Admin: 08/05/22 09:09 Dose: 50 mls/hr Insulin Aspart (Insulin Aspart Per Unit) 0 units SC ACHS [facility] Stop: 09/03/22 01:01 Last Admin: 08/05/22 09:01 Dose: 1 units Insulin Glargine (Lantus Per Unit Charge) 10 units SQ HS [facility] Stop: 09/03/22 02:49 Last Admin: 08/04/22 21:02 Dose: 10 units Isosorbide Mononitrate (Isosorbide [place] Extended Rel 60 Mg Tabcr) 120 mg PO DAILY [facility] Stop: 09/03/22 08:59 Last Admin: 08/05/22 09:01 Dose: 120 mg Levothyroxine Sodium (Levothyroxine Sodium 25 Mcg Tablet) 25 mcg PO DAILYBB [facility] Stop: 09/03/22 06:29 Last Admin: 08/05/22 05:15 Dose: 25 mcg Melatonin (Melatonin 3 Mg Tab) 3 mg PO HS PRN PRN Reason: Sleep Stop: 09/03/22 21:48 Last Admin: 08/04/22 22:43 Dose: 3 mg Metoprolol Succinate (Metoprolol Succ 50mg Ext Rel Tab) 150 mg PO QAM [facility] Stop: 09/03/22 08:59 Last Admin: 08/05/22 09:01 Dose: 150 mg Metoprolol Succinate (Metoprolol Succ 50mg Ext Rel Tab) 100 mg PO QPM [facility] Stop: 09/03/22 20:59 Last Admin: 08/04/22 20:47 Dose: 100 mg Miscellaneous (Netarsudil [Rhopressa] - Order Awaiting Action) 1 each N/A QS [facility] Stop: 09/03/22 07:59 Last Admin: 08/05/22 07:35 Dose: Not Given Miscellaneous (Carbohydrates For Hypoglycemia ) 15 - 30 gm PO UD PRN PRN Reason: Hypoglycemia Protocol Stop: 09/03/22 01:01 Montelukast Sodium (Montelukast Sodium 10 Mg Tablet) 10 mg PO PM [facility] Stop: 09/03/22 20:59 Last Admin: 08/04/22 20:48 Dose: 10 mg Multivitamins (Multivitamin Tab) 1 tab PO QAM [facility] Stop: 09/03/22 08:59 Last Admin: 08/05/22 09:01 Dose: 1 tab Nitroglycerin (Nitroglycerin Sl 0.4 Mg/Tab Tab) 0.4 mg SL UD PRN PRN Reason: Angina Stop: 09/03/22 01:01 Pantoprazole Sodium (Pantoprazole 40 Mg Tab) 40 mg PO DAILY [facility] Stop: 09/03/22 08:59 Last Admin: 08/05/22 09:01 Dose: 40 mg Tramadol HCl (Tramadol Hcl 50 Mg Tablet) 25 - 50 mg PO Q4H PRN PRN Reason: Pain Stop: 09/03/22 01:01 (1) Pulmonary edema Chronicity: acute Qualified Code(s): J81.0 - Acute pulmonary edema
--- NOTE | 2022-08-05 10:24 | Hospitalist Progress Note ---
Date of Service August 05, 2022 Assessment & Plan (1) Shortness of breath: (2) Angina pectoris: (3) Chronic combined systolic and diastolic heart failure: (4) Hypoxia: (5) Hypomagnesemia: (6) Tachy-tanner syndrome: (7) S/P placement of cardiac pacemaker: (8) CAD (coronary artery disease): (9) S/P TAVR (transcatheter aortic valve replacement): (10) Afib: (11) Hypertension: (12) Diabetes mellitus, type II: (13) Carotid stenosis: (14) Hypothyroidism: Plan: This is an 82 yo F with extensive PMH of diastolic, systolic heart failure, aortic stenosis s/p TAVR, paravalvular aortic prosthesis regurgitation, 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 Acute hypoxic respiratory failure Acute on chronic combined systolic and diastolic heart fail Tachybradycardia syndrome status post pacemaker placement in August 2021 History of TAVR Admitted with shortness of breath. Noncompliant with outpatient diuretics. History of inoperable coronary artery disease and angina Camilo is medically. Normotensive, saturating well at 2 L/min via nasal cannula on admission. Currently on RA. BNP elevated to 1900 Chest x-ray consistent with pulmonary edema PT/INR3.4 High-sensitivity troponin in 20s; similar to previous admission. Echo done during last admission of 35 to 40%; large sized apical, septal, lateral and inferior wall motion abnormality. Severe pulmonary hypertension present. Plan; Continue diuresis with Lasix 20 mg IV twice daily. Strict input and output, daily standing weight. weight decreased by 3 kgs. Continue on metoprolol 150 mg in a.m. and 100 mg in p.m. Continue on aspirin, Plavix, Lipitor and isosorbide for angina. Patient to be restarted on Ranexa after fluid status improves. Chronic conditions; Atrial fibrillation-continue on metoprolol. Coumadin on hold given supratherapeutic INR. PT/INR daily Type 2 diabetes mellituscontinue on Lantus and sliding scale while inpatient. Hypothyroidismcontinue home dose of levothyroxine Full code DVT prophylaxiswarfarin on hold given supratherapeutic INR Admission and Anticipated Discharge Date Admission Date: August 03, 2022 Subjective Patient seen and examined at bedside. She is sitting at the side of the bed. She reports improvement Physical Exam Physical Exam: Constitutional: WD/WN, vitals as above, NAD, sitting up in bed, pleasant, conversing easily Respiratory: Bibasilar crackle heard. Cardiovascular: RRR, no murmur, no edema Vessels: no JVD or carotid bruit Chest: normal inspection of chest Abdomen: normal bowel sounds, soft, nontender, no hepatosplenomegaly Musculoskeletal: no cyanosis or clubbing, extremities motor strength 5/5 Skin: Has bruises in bilateral lower extremity. 1+ pitting edema present. Neurologic: PERRL, EOMI, accommodation nl, no face palsy, no dysarthria CN's II- XI intact bilaterally and moves all extremities Psychiatric: A+Ox3, euthymic affect Lymphatic: no cervical or axillary lymphadenopathy : deferred Results & Data Results & Data ([facility]) Vital Signs (Past 12 Hours) Vital Signs Temp Pulse Pulse Resp BP Pulse Ox O2 Del Method 08/05/22 07:55 36.6 C 72 16 126/64 98 Room Air 08/05/22 07:33 74 08/05/22 01:02 08/05/22 03:10 36.4 C L 59 L 18 132/73 99 Nasal Cannula 08/05/22 00:14 77 08/04/22 23:04 36.7 C 77 18 87/56 L 97 Nasal Cannula 08/04/22 23:01 Room Air O2 Del Method O2 Flow Rate 08/05/22 07:55 1 08/05/22 07:33 08/05/22 01:02 Room Air 08/05/22 03:10 2 08/05/22 00:14 08/04/22 23:04 2.0 08/04/22 23:01
[2022-08-05] MEDS: ATORVASTATIN 40 MG TAB PO SCH (20:21)
[2022-08-05] MEDS: GABAPENTIN 600 MG TAB PO SCH (20:21)
[2022-08-05] MEDS: MONTELUKAST SODIUM 10 MG TABLET PO SCH (20:22)
[2022-08-05] MEDS: BIMATOPROST 0.01% OP SOLN 2.5 ML BTL OP SCH (20:22)
[2022-08-05] MEDS: LANTUS PER UNIT CHARGE SQ SCH (20:26)
[2022-08-05] MEDS: MELATONIN 3 MG TAB PO PRN (21:51)
[2022-08-06] MEDS: LEVOTHYROXINE SODIUM 25 MCG TABLET PO SCH (05:31)
[2022-08-06 07:16] LABS: Basophils # (auto) 0.02 K/uL (0-0.2); Basophils % (auto) 0.4 %; Eosinophils # (auto) 0.09 K/uL (0-0.50); Eosinophils % (auto) 1.9 %; Hematocrit (blood only) 28.5 % (34.1-44.9); Hemoglobin 9.3 g/dl (12.0-16.0); Immature Granulocytes # (auto) 0.01 K/uL (0.00-0.02); Immature Granulocytes % (auto) 0.2 %; Lymphocytes # (auto) 1.17 K/uL (1.2-3.4); Mean Corpuscular Hemoglobin 31.2 pg (25.0-34.0); Mean Corpuscular Hgb Conc 32.6 g/dL (32.0-36.0); Mean Corpuscular Volume 95.6 fL (80.0-100.0); Mean Platelet Volume 9.3 fL (9.4-12.3); Monocytes # (auto) 0.52 K/uL (0.24-0.82); Monocytes % (auto) 11.1 %; Neutrophils # (auto) 2.87 K/uL (1.4-6.5); Neutrophils % (auto) 61.4 %; Platelet Count 264 K/uL (130-400); RDW Coefficient of Variation 14.6 % (11.5-14.5); RDW Standard Deviation 50.9 fL (36.4-46.3); Red Blood Count 2.98 M/uL (3.93-5.22); White Blood Count 4.68 K/ul (4.8-10.8)
[2022-08-06 07:28] LABS: INR 1.4 (0.9-1.1); Prothrombin Time 14.6 Seconds (9.0-12.0)
[2022-08-06 07:36] LABS: BUN Creatinine Ratio 27.2 (10-20); Calcium 8.3 mg/dl (8.5-10.1); Creatinine Clr Calc Pharmacy 45.8 ml/min; Est GFR (African American) 67.2 ml/min; Potassium 4.1 mmol/L (3.5-5.1)
[2022-08-06] MEDS: FLUTICASONE PROPIONATE NA SPR 16 GM BTL SCH (08:45)
[2022-08-06] MEDS: PANTOprazole 40 MG TAB PO SCH (08:45)
[2022-08-06] MEDS: INSULIN ASPART PER UNIT SC SCH ×2 (08:45→12:07)
[2022-08-06] MEDS: METOPROLOL SUCC 50MG EXT REL TAB PO SCH (08:45)
[2022-08-06] MEDS: ISOSORBIDE MONO EXTENDED REL 60 MG TABCR PO SCH (08:45)
[2022-08-06] MEDS: MULTIVITAMIN TAB PO SCH (08:45)
[2022-08-06] MEDS: CLOPIDOGREL BISULFATE 75 MG TAB PO SCH (08:45)
--- NOTE | 2022-08-06 11:22 | Discharge Summary ---
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 History obtained from patient and from chart review. History hospitalization 07/12/2022-07/17/2022 for acute on chronic combined heart failure. Had diuresis with IV Lasix. Discharged on Lasix 20 mg daily. Ranexa was added for chronic angina symptoms. Diltiazem discontinued, metoprolol succinate changed to 150 mg in a.m. and 100 mg in p.m. Urine culture positive E. coli treated IV Rocephin and discharged on Keflex. Patient states was feeling well at time of hospital discharge and then home for couple of days and started having SOB with associated chest pressure that radiates up bilateral neck with exertion. Occurs with getting dressed and walking in the house. Patient states has been taking SL nitro 2-3 times a day with relief of symptoms for the past couple of weeks. She states doesn't weigh herself daily but thinks is up 6 pounds in past 1-2 months. Notices BLE with right being worse than left and thinks this is her baseline. Denies fever/chills, diaphoresis, N/V/D/C, CARRASCO, dizziness, syncope, vision changes, orthopnea, palpitations, cough, sore throat, choking, otalgia, rhinorrhea, abdominal pain, paresthesias, weakness, extremity weakness, rashes, urinary symptoms. Admission Exam Per Admitting Provider Constitutional: WD/WN, vitals as above, NAD, sitting up in bed, pleasant, conversing easily Respiratory: Bibasilar crackle heard. Cardiovascular: RRR, no murmur, no edema Vessels: no JVD or carotid bruit Chest: normal inspection of chest Abdomen: normal bowel sounds, soft, nontender, no hepatosplenomegaly Musculoskeletal: no cyanosis or clubbing, extremities motor strength 5/5 Skin: Has bruises in bilateral lower extremity. 1+ pitting edema present. Neurologic: PERRL, EOMI, accommodation nl, no face palsy, no dysarthria CN's II- XI intact bilaterally and moves all extremities Psychiatric: A+Ox3, euthymic affect Lymphatic: no cervical or axillary lymphadenopathy : deferred Principal Diagnosis Acute hypoxic respiratory failure Acute on chronic combined systolic and diastolic heart fail Tachybradycardia syndrome status post pacemaker placement in August 2021 History of TAVR Discharge Exam Constitutional: WD/WN, vitals as above, NAD, sitting up in bed, pleasant, conversing easily Respiratory: Bibasilar crackle heard. Cardiovascular: RRR, no murmur, no edema Vessels: no JVD or carotid bruit Chest: normal inspection of chest Abdomen: normal bowel sounds, soft, nontender, no hepatosplenomegaly Musculoskeletal: no cyanosis or clubbing, extremities motor strength 5/5 Skin: Has bruises in bilateral lower extremity. 1+ pitting edema present. Neurologic: PERRL, EOMI, accommodation nl, no face palsy, no dysarthria CN's II- XI intact bilaterally and moves all extremities Psychiatric: A+Ox3, euthymic affect Lymphatic: no cervical or axillary lymphadenopathy : deferred Discharge Data Allergies Allergy/AdvReac Type Severity Reaction Status Date / Time empagliflozin Allergy Intermediate BLOOD IN Verified 08/03/22 21:31 [From Jardiance] URINE, BLADDER INFECTION carbamazepine Allergy Mild RASH Verified 08/03/22 21:31 oxaprozin Allergy Mild RASH/HIVES Verified 08/03/22 21:31 valproic acid Allergy Mild HEAD-TOE Verified 08/03/22 21:31 RASH ranolazine [From Ranexa] AdvReac Dizziness Verified 08/04/22 03:12 Consultations 08/03/22 20:30 ED Decision to Admit Stat 08/04/22 01:02 Consult Cardiology Routine Hospital Course (1) Shortness of breath: (2) Angina pectoris: (3) Chronic combined systolic and diastolic heart failure: (4) Hypoxia: (5) Hypomagnesemia: (6) Tachy-tanner syndrome: (7) S/P placement of cardiac pacemaker: (8) CAD (coronary artery disease): (9) S/P TAVR (transcatheter aortic valve replacement): (10) Afib: (11) Hypertension: (12) Diabetes mellitus, type II: (13) Carotid stenosis: (14) Hypothyroidism: Acute hypoxic respiratory failure Acute on chronic combined systolic and diastolic heart fail Tachybradycardia syndrome status post pacemaker placement in August 2021 History of TAVR This is an 82 yo F with extensive PMH of diastolic, systolic heart failure, aortic stenosis s/p TAVR, paravalvular aortic prosthesis regurgitation, 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 Patient was admitted for acute on chronic combined systolic and diastolic heart failure. Patient was reported not to be compliant with her diuretics. Her BNP was elevated to 1900. Patient was diuresed with 20 mg of Lasix IV twice daily during the hospitalization. Patient reported improvement in the symptoms; was off oxygen and in room air. Cardiology recommended patient to be started on Lasix 20 mg once daily on discharge. Patient will be seeing cardiology as outpatient on Monday. Her warfarin was kept on hold during the hospitalization due to supratherapeutic INR. Patient was asked to resume her warfarin on discharge and get follow-up PT/INR as outpatient. Outpatient follow-up with her primary care was also set up. Total Time Total Time Spent Total Time Spent (In Minutes): 35 Total Time Includes: Examination of the Patient, Discharge Planning, Medication Reconciliation, Communication With Other Providers and Other Discharge Plan Discharge Items Patient Disposition: Home - Self-Care Reason For Visit: RESP FAILURE Discharge Diagnosis: Acute on chronic combined systolic and diastolic heart fail Activity: Resume your previous activity Non-emergency contact: Primary Care Provider Call non-emergency contact if: you have any medication questions and your symptoms worsen Follow-up/Referrals: Natalio Moseley MD [Primary Care Provider] - (Date & Time 08/12/2022 12:00 PM Provider Natalio Moseley MD Department General Internal Medicine [facility] ) Diet: Regular Addtl Attending Provider Instructions: You were admitted to the hospital with heart failure. You were given diuretics to improve the congestion. Please take Lasix 20 mg once daily every morning. Please weigh yourself daily at the same time in the morning and keep a record. If you notice increase weight gain of 3 to 4 pounds along with leg swelling; take extra dose of Lasix 20 till your weight decreases back to her dry weight. Also informed your primary care doctor. Please restart warfarin at the regular dose. Your INR today was 1.4. You will need to have INR checked sometime next week to make sure it is within therapeutic range. You have appointment with cardiology on Monday. You also have an appointment with Dr. Moseley next Monday on the 12 August at 12 pm. Pending Studies at Discharge: No Stand-Alone Forms: My [facility], Smoking Cessation Medications and DC Order Prescriptions: New magnesium 200 mg tablet 200 mg PO DAILY Qty: 30 0RF Continued multivitamin Tablet 1 tab PO QAM atorvastatin 80 mg Tablet 80 mg PO HS clopidogrel 75 mg Tablet 75 mg PO QAM levothyroxine 25 mcg Tablet 25 mcg PO DAILYBB ropinirole 0.25 mg Tablet 0.25 mg PO HS Rx Instructions: TAKE AT HS WITH FOOD. nitroglycerin 0.4 mg Tablet, Sublingual 0.4 mg sublingual DIRECTED PRN (Reason: Angina) fluticasone propionate [Flonase Allergy Relief] 50 mcg/actuation Spr ay,Suspension 2 spray INTRANASAL DAILY omeprazole 20 mg Tablet,Delayed Release (Dr/Ec) 20 mg PO DAILY Lumigan 0.01 % Drops 1 drp OPB HS metformin 500 mg Tablet 500 mg PO BIDM docusate sodium [Stool Softener] 100 mg Tablet 100 mg PO BID PRN (Reason: Constipation) magnesium oxide 400 mg magnesium Capsule 400 mg PO DAILY Rhopressa 0.02 % Drops 1 drp OPB HS isosorbide mononitrate 60 mg Tablet Extended Release 24 Hr 120 mg PO DAILY warfarin 5 mg tablet 5 mg PO DAILY@1600 glipizide 5 mg tablet 5 - 10 mg PO DAILY Repatha SureClick 140 mg/mL pen injector 140 mg SUBCUT .Q14 DAYS montelukast 10 mg tablet 10 mg PO DAILY diphenhydramine-acetaminophen [Tylenol PM Extra Strength] 25-500 mg Tablet 2 tab PO HS PRN (Reason: Pain-sleep) Cranberry Caps 360 mg PO DAILY Rx Instructions: take two 180 mg caps Vitron-C 65 mg iron- 125 mg Tablet,Delayed Release (Dr/Ec) 1 tab PO DAILY metoprolol succinate 100 mg tablet extended release 24 hr 100 mg PO HS metoprolol succinate 100 mg tablet extended release 24 hr 150 mg PO QAM gabapentin 300 mg capsule 600 mg PO HS acetaminophen [Tylenol Extra Strength] 500 mg Tablet 1,000 mg PO Q6H PRN (Reason: Pain) furosemide [Lasix] 20 mg tablet 20 mg PO DAILY Qty: 30 0RF Discharge Orders: Discharge Order (Routine); Ordered 08/06/22 Ordered By: Juan Martinez Admission Data Admit Date/Time: 08/03/22 22:09 Attending Provider: Juan Martinez Admit Provider: Ky Becker Primary Care Provider: Natalio Moseley Other Providers: Ky Becker ; Abhi Rose ; Jay Carter ; Meng Arredondo ; Bernard Llamas ; Evert Hamilton ; Thaddeus Cole ; Kim Evans ; Alesia Baxter ; Cathryn Griffin ; Castillo Sheikh Other Interventions: Discharge Summary Assessment (RN) Last Done: 08/06/22 10:07
[2022-08-06] MEDS ORDERED: WARFARIN SOD 5 MG TAB PO SCH (16:00)
== END 2022-08-06 12:28 | disposition home or self-care (01) | DRG 291 ==
LOC: ED 17:32 → 2S 22:09

== ENCOUNTER 2022-09-12 13:40 | Inpatient (IN) ==
--- NOTE | 2022-09-12 14:17 | Emergency Department Note ---
Impression & Plan Pulmonary edema, Hypoxia, MARY (acute kidney injury), Acute hyperkalemia, Pleural effusion, Angina pectoris, Elevated troponin I level ED Provider Note NAME: MARJORIE BLAKE AGE: 82 SEX: F : 1940 ARRIVES VIA: Walk-In INFORMANT: Patient, the patient's family member ED PROVIDER(S): Toi Smith DO CHIEF COMPLAINT: Chest pain HPI: The patient is an 82-year-old female who presented to the emergency department for an evaluation of chest pain. The patient describes anterior chest pain as well as shortness of breath. She does wear oxygen at home but usually only at night. She has a history of congestive heart failure. The patient states that she has been noticing more difficulty breathing as well as a slight cough. She notices no fever. She is recently been changed from Lasix to furosemide. She is been compliant with her outpatient medications. Her family member noted that she was having significant shortness of breath and appeared to be having chest pain as well as dyspnea with even slight exertion. For this reason she brought her to the emergency department. ROS: See above HPI for pertinent positives & negatives. A total of 10 systems reviewed and were otherwise negative. PAST MEDICAL HISTORY: See Below PAST SURGICAL HISTORY: See Below FAMILY HISTORY: See Below SOCIAL HISTORY: See Below HOME MEDICATIONS: See Below ALLERGIES: See Below VITALS: See Below PHYSICAL EXAMINATION: GENERAL: Patient is awake alert in no acute distress patient is resting comfortably and showing no signs of anxiety EYES: The conjunctivae are clear. The pupils are round and reactive. EARS, NOSE, MOUTH AND THROAT: The nose is without any evidence of any deformity. Mucous membranes are moist. Tongue is midline. NECK: The neck is nontender and supple. RESPIRATORY: Diminished breath sounds are noted throughout. There was poor air movement. Conversational dyspnea was noted. CARDIOVASCULAR: Regular rate and rhythm noted there no murmurs rubs or gallops normal S1 normal S2. GASTROINTESTINAL: The abdomen is soft. Abdomen is nontender. MUSCULOSKELETAL/EXTREMITIES: There is no evidence of gross deformity full range of motion is noted in the hips and shoulders. SKIN: Skin was warm and dry. Pedal edema was noted bilaterally. NEUROLOGIC: Patient is awake alert and oriented x3 MEDICAL DECISION MAKING: The patient is an 82-year-old female who presented to the emergency department for an evaluation of difficulty breathing. The patient does have a history of CHF. She has very difficult to manage fluid status and has had some changes to her medications recently. She was started on Bumex recently. I discussed patient's laboratory and radiographic studies with her and her family member. The patient appears to have an acute elevation in her creatinine compared to baseline. This likely is a result of her diuresis. The patient may not do well with further diuresis in the ER. She was treated with a very small fluid bolus. She was found to have an elevation in her lactic acid. I do not feel this necessarily represents sepsis but since she was hypotensive this has to be addressed and I do not feel the patient would do well with a large fluid bolus therefore fluid was kept to a minimum for rehydration. I discussed the patient's condition with the on-call [facility] hospitalist. They have agreed to evaluate the patient in the emergency department for further management and disposition Triage Nursing notes reviewed. Prior medical records reviewed Vital Signs: reviewed and remarkable for initial hypotension and hypoxia. Differential diagnosis: Reactive airway disease, pneumonia, pneumothorax, COPD, CHF, infections, cardiac ischemia, pulmonary embolism, musculoskeletal, gastrointestinal, as well as other pathologies. ER treatment provided: See below Diagnostics interpreted by me: ECG: EKG was obtained in the emergency department. My interpretation is ventricular paced rhythm with atrial sensing at 84 bpm. PVCs were noted. Inferior Q waves as well as a left bundle branch block was noted. This was com pared to a tracing from August 03, 2022. No significant changes were noted. Cardiac Monitoring: An order was placed for continuous cardiac monitoring. The monitor shows a rate of 82 bpm with paced rhythm. Laboratory studies: As stated above and show below. Imaging studies: See below. Radiographic imaging was reviewed by myself Consultation(s): I discussed this case with Gabbi who is on-call for the [facility]. 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 Arredondo History of appendectomy History of cardiac cath x4 with a total of 4 stents--last--12/2018 @ [facility] [place] x1 DRUG ELUTING STENT History of colonoscopy History of esophagogastroduodenoscopy (EGD) History of heart artery stent a total of 4 stents--last--12/2018 @ [facility] [place] x1 DRUG ELUTING STENT History of hip surgery left 2 screws placed after total hip replacement History of lumbar laminectomy for spinal cord decompression x2 History of right cataract surgery History of tonsillectomy History of tooth extraction all teeth removed History of total hysterectomy with bilateral salpingo-oophorectomy (BSO) History of total left hip replacement History of total left knee replacement (TKR) History of total right knee replacement (TKR) S/P placement of cardiac pacemaker Aug 2021 S/P TAVR (transcatheter aortic valve replacement) Status post glaucoma surgery right eye Status post trigger finger release left hand Family History Mother Diabetes Osteoporosis Heart disease Grandmother (Maternal) Diabetes Father Heart disease Other Asthma No family history of adverse response to anesthesia Social History Smoking Status: Never smoker Tobacco Type: Cigarettes Second Hand Exposure: No; Hx Alcohol Use: No Hx Substance Use: No Preferred Language: Indonesian Communication Ability: Effective Manager Pacu Required: No Beliefs That Will Affect Care: None marital status: Current Living Situation: Spouse Current Living Situation Comment: Lives with Feels Safe at Home: Yes Assistive Devices: Cane, Oxygen - at Night and Walker Allergies Allergies Allergy/AdvReac Type Severity Reaction Status Date / Time empagliflozin Allergy Intermediate BLOOD IN Verified 08/03/22 21:31 [From Jardiance] URINE, BLADDER INFECTION carbamazepine Allergy Mild RASH Verified 08/03/22 21:31 oxaprozin Allergy Mild RASH/HIVES Verified 08/03/22 21:31 valproic acid Allergy Mild HEAD-TOE Verified 08/03/22 21:31 RASH ranolazine [From Ranexa] AdvReac Dizziness Verified 08/04/22 03:12 Home Meds Home Medications Medication Instructions Recorded Confirmed atorvastatin 80 mg tablet 80 mg PO QAM 06/12/19 09/12/22 clopidogrel 75 mg tablet 75 mg PO QAM 06/12/19 09/12/22 fluticasone propionate 50 2 spray intranasal DAILY 06/12/19 09/12/22 mcg/actuation nasal spray,suspension (Flonase Allergy Relief) levothyroxine 25 mcg tablet 25 mcg PO DAILYBB 06/12/19 09/12/22 nitroglycerin 0.4 mg sublingual 0.4 mg sublingual DIRECTED PRN 06/12/19 09/12/22 tablet Chest Pain omeprazole 20 mg tablet,delayed 20 mg PO DAILY 06/12/19 09/12/22 release ropinirole 0.25 mg tablet 0.25 mg PO HS 06/12/19 09/12/22 metformin 500 mg tablet 500 mg PO BIDM 07/13/20 09/12/22 netarsudil 0.02 % eye drops 1 drp OPB HS 11/11/20 09/12/22 (Rhopressa) evolocumab 140 mg/mL subcutaneous 140 mg subcut .Q14 DAYS 02/27/21 09/12/22 pen injector (Brad Mcfarlane) glipizide 5 mg tablet 10 mg PO DAILYBB 02/27/21 09/12/22 isosorbide mononitrate 60 mg 120 mg PO QAM 02/27/21 09/12/22 tablet,extended release 24 hr warfarin 5 mg tablet 5 mg PO DAILY@1600 02/27/21 09/12/22 Cranberry Caps 360 mg PO DAILY 08/29/21 09/12/22 diphenhydramine 25 2 tab PO HS 08/29/21 09/12/22 mg-acetaminophen 500 mg tablet (Tylenol PM Extra Strength) iron,carbonyl 65 mg-vitamin C 125 1 tab PO QAM 07/12/22 09/12/22 mg tablet,delayed release (Vitron-C) gabapentin 300 mg capsule 600 mg PO HS 08/03/22 09/12/22 metoprolol succinate 100 mg 100 mg PO HS 08/03/22 09/12/22 tablet,extended release 24 hr metoprolol succinate 100 mg 150 mg PO QAM 08/03/22 09/12/22 tablet,extended release 24 hr latanoprost 0.005 % eye drops 1 drp OPB HS 09/12/22 09/12/22 magnesium 200 mg tablet 200 mg PO AMHS 09/12/22 09/12/22 multivitamin with minerals 1 tab PO DAILY 09/12/22 09/12/22 (Multiple Vitamin-Minerals tablet) nitroglycerin 0.2 mg/hr 1 patch topical QAM 09/12/22 09/12/22 transdermal 24 hour patch torsemide 20 mg tablet 40 mg PO QAM 09/12/22 09/12/22 Results & Data (ED) Vital Signs Vital Signs - 24 hr 09/12/22 13:41 09/12/22 14:34 09/12/22 14:34 Temperature 36.9 C Temperature Source Temporal Artery Scan Pulse Rate 78 Pulse Rate [Apical] 82 Respiratory Rate 18 16 Respiratory Effort / Characteristics Spontaneous Respiratory Pattern Regular Blood Pressure 98/51 L Blood Pressure [Left Arm] 110/57 L Blood Pressure Mean 66 Blood Pressure Mean [Left Arm] 74 Blood Pressure Position Sitting Pulse Oximetry 90 77 L 96 Oxygen Delivery Method Room Air Room Air Nasal Cannula Oxygen Flow Rate 0 3 Sepsis Recent Fever Within 48 Hours No Sepsis New/Unexplained Change in Mental Status No Sepsis Action Taken by Nursing No Action Required 09/12/22 14:34 09/12/22 14:36 Temperature Temperature Source Pulse Rate 80 Pulse Rate [Apical] 80 Respiratory Rate 16 17 Respiratory Effort / Characteristics Respiratory Pattern Blood Pressure Blood Pressure [Left Arm] Blood Pressure Mean Blood Pressure Mean [Left Arm] Blood Pressure Position Pulse Oximetry 96 96 Oxygen Delivery Method Nasal Cannula Nasal Cannula Oxygen Flow Rate 3 3 Sepsis Recent Fever Within 48 Hours Sepsis New/Unexplained Change in Mental Status Sepsis Action Taken by Skilled Nursing Medications Current Medication List: was personally reviewed by me Laboratory Data Attestation: I reviewed the patient's lab results. 09/12/22 14:17 09/12/22 14:17 Lab Results 09/12/22 09/12/22 09/12/22 Range/Units 14:17 14:17 14:17 WBC 7.15 (4.8-10.8) K/ul RBC 3.67 L (3.93-5.22) M/uL Hgb 11.1 L (12.0-16.0) g/dl Hct 35.5 (34.1-44.9) % MCV 96.7 (80.0-100.0) fL MCH 30.2 (25.0-34.0) pg MCHC 31.3 L (32.0-36.0) g/dL RDW Std Deviation 52.4 H (36.4-46.3) fL RDW Coeff of Omid 14.9 H (11.5-14.5) % Plt Count 305 (130-400) K/uL MPV 9.9 (9.4-12.3) fL Immature Gran % (Auto) 0.6 % Neut % (Auto) 72.7 % Lymph % (Auto) 16.5 % [place] % (Auto) 9.4 % Eos % (Auto) 0.4 % Baso % (Auto) 0.4 % Neut # (Auto) 5.20 (1.4-6.5) K/uL Lymph # (Auto) 1.18 L (1.2-3.4) K/uL [place] # (Auto) 0.67 (0.24-0.82) K/uL Eos # (Auto) 0.03 (0-0.50) K/uL Baso # (Auto) 0.03 (0-0.2) K/uL Immature Gran # (Auto) 0.04 H (0.00-0.02) K/uL Absolute Nucleated RBC 0.02 H (0-0) K/uL Nucleated RBC % (auto) 0.3 % PT 35.0 H (9.0-12.0) Seconds INR 3.5 H (0.9-1.1) APTT 35.6 H (21.0-31.0) Seconds PTT Ratio 1.3 VBG pH (7.36-7.41) VBG pCO2 (38-50) mmHg VBG pO2 mmHg VBG HCO3 mmol/L VBG O2 Saturation % VBG Base Excess mEq/L Methemoglobin (0.0-1.5) % Sodium 139 (136-145) mmol/L Potassium 5.3 H (3.5-5.1) mmol/L Chloride 92 L (98-107) mmol/L Carbon Dioxide 36 H (21-32) mmol/L Anion Gap 11 (3-11) BUN 66 H (6-23) mg/dl Creatinine 2.15 H (0.6-1.2) mg/dl Est Cr Clr Drug Dosing Not Reportable Est GFR ( Amer) 24.1 ml/min Est GFR (Non-Af Amer) 20.8 ml/min BUN/Creatinine Ratio 30.7 H (10-20) Glucose 235 H (70-99(Fasting)) mg/dl Lactate (0.4-2.0) mmol/L Calcium 9.8 (8.5-10.1) mg/dl Magnesium 1.8 (1.7-2.4) mg/dl Total Bilirubin 0.7 (0.2-1.0) mg/dl Direct Bilirubin 0.3 H (0-0.2) mg/dl AST 27 (13-39) U/L ALT 18 (7-52) U/L Alkaline Phosphatase 62 (34-104) U/L Troponin I High Sens 575.3 H* (0-14) pg/ml B-Natriuretic Peptide (0-100) pg/ml Total Protein 6.7 (6.0-8.3) gm/dl Albumin 3.8 (3.4-5.0) gm/dl Procalcitonin (0-0.5) ng/ml 09/12/22 09/12/22 09/12/22 Range/Units 14:17 14:17 14:17 WBC (4.8-10.8) K/ul RBC (3.93-5.22) M/uL Hgb (12.0-16.0) g/dl Hct (34.1-44.9) % MCV (80.0-100.0) fL MCH (25.0-34.0) pg MCHC (32.0-36.0) g/dL RDW Std Deviation (36.4-46.3) fL RDW Coeff of Omid (11.5-14.5) % Plt Count (130-400) K/uL MPV (9.4-12.3) fL Immature Gran % (Auto) % Neut % (Auto) % Lymph % (Auto) % [place] % (Auto) % Eos % (Auto) % Baso % (Auto) % Neut # (Auto) (1.4-6.5) K/uL Lymph # (Auto) (1.2-3.4) K/uL [place] # (Auto) (0.24-0.82) K/uL Eos # (Auto) (0-0.50) K/uL Baso # (Auto) (0-0.2) K/uL Immature Gran # (Auto) (0.00-0.02) K/uL Absolute Nucleated RBC (0-0) K/uL Nucleated RBC % (auto) % PT (9.0-12.0) Seconds INR (0.9-1.1) APTT (21.0-31.0) Seconds PTT Ratio VBG pH 7.38 (7.36-7.41) VBG pCO2 62 H (38-50) mmHg VBG pO2 25 mmHg VBG HCO3 37 mmol/L VBG O2 Saturation < 60.0 % VBG Base Excess 9.2 mEq/L Methemoglobin (0.0-1.5) % Sodium (136-145) mmol/L Potassium (3.5-5.1) mmol/L Chloride (98-107) mmol/L Carbon Dioxide (21-32) mmol/L Anion Gap (3-11) BUN (6-23) mg/dl Creatinine (0.6-1.2) mg/dl Est Cr Clr Drug Dosing Est GFR ( Amer) ml/min Est GFR (Non-Af Amer) ml/min BUN/Creatinine Ratio (10-20) Glucose (70-99(Fasting)) mg/dl Lactate 3.8 H* (0.4-2.0) mmol/L Calcium (8.5-10.1) mg/dl Magnesium (1.7-2.4) mg/dl Total Bilirubin (0.2-1.0) mg/dl Direct Bilirubin (0-0.2) mg/dl AST (13-39) U/L ALT (7-52) U/L Alkaline Phosphatase (34-104) U/L Troponin I High Sens (0-14) pg/ml B-Natriuretic Peptide (0-100) pg/ml Total Protein (6.0-8.3) gm/dl Albumin (3.4-5.0) gm/dl Procalcitonin < 0.05 (0-0.5) ng/ml 09/12/22 09/12/22 Range/Units 14:17 14:17 WBC (4.8-10.8) K/ul RBC (3.93-5.22) M/uL Hgb (12.0-16.0) g/dl Hct (34.1-44.9) % MCV (80.0-100.0) fL MCH (25.0-34.0) pg MCHC (32.0-36.0) g/dL RDW Std Deviation (36.4-46.3) fL RDW Coeff of Omid (11.5-14.5) % Plt Count (130-400) K/uL MPV (9.4-12.3) fL Immature Gran % (Auto) % Neut % (Auto) % Lymph % (Auto) % [place] % (Auto) % Eos % (Auto) % Baso % (Auto) % Neut # (Auto) (1.4-6.5) K/uL Lymph # (Auto) (1.2-3.4) K/uL [place] # (Auto) (0.24-0.82) K/uL Eos # (Auto) (0-0.50) K/uL Baso # (Auto) (0-0.2) K/uL Immature Gran # (Auto) (0.00-0.02) K/uL Absolute Nucleated RBC (0-0) K/uL Nucleated RBC % (auto) % PT (9.0-12.0) Seconds INR (0.9-1.1) APTT (21.0-31.0) Seconds PTT Ratio VBG pH (7.36-7.41) VBG pCO2 (38-50) mmHg VBG pO2 mmHg VBG HCO3 mmol/L VBG O2 Saturation % VBG Base Excess mEq/L Methemoglobin < 0.7 (0.0-1.5) % Sodium (136-145) mmol/L Potassium (3.5-5.1) mmol/L Chloride (98-107) mmol/L Carbon Dioxide (21-32) mmol/L Anion Gap (3-11) BUN (6-23) mg/dl Creatinine (0.6-1.2) mg/dl Est Cr Clr Drug Dosing Est GFR ( Amer) ml/min Est GFR (Non-Af Amer) ml/min BUN/Creatinine Ratio (10-20) Glucose (70-99(Fasting)) mg/dl Lactate (0.4-2.0) mmol/L Calcium (8.5-10.1) mg/dl Magnesium (1.7-2.4) mg/dl Total Bilirubin (0.2-1.0) mg/dl Direct Bilirubin (0-0.2) mg/dl AST (13-39) U/L ALT (7-52) U/L Alkaline Phosphatase (34-104) U/L Troponin I High Sens (0-14) pg/ml B-Natriuretic Peptide 4287 H (0-100) pg/ml Total Protein (6.0-8.3) gm/dl Albumin (3.4-5.0) gm/dl Procalcitonin (0-0.5) ng/ml Administered Medications Discontinued Medications Furosemide (Furosemide 40 Mg/4 Ml Vial) 60 mg IV ONE ONE Stop: 09/12/22 17:39 Last Admin: 09/12/22 18:45 Dose: 60 mg Documented By: HERNAN Sodium Chloride (Nss) 250 mls @ 999 mls/hr IV .Q16M ONE Stop: 09/12/22 15:33 Last Infusion: 09/12/22 16:50 Dose: 0 mls/hr Documented By: Admin: 09/12/22 15:30 Dose: 999 mls/hr Documented By: HERNAN Imaging Data Radiologist's Impression: Chest X-Ray 09/12/22 13:58 XR chest 1V portable HISTORY: dyspnea COMPARISON: Chest 08/03/2022. FINDINGS: No pneumothorax. The heart remains mildly enlarged. There is left-side d pacemaker and a cardiac valve prosthesis. Mitral annulus calcifications again noted. Small bilateral pleural effusions and bibasilar densities persist. Mild congestive change again noted. IMPRESSION: No significant change in the mild congestive change, small bilateral pleural effusions, and bibasilar densities ACT 112: Negative or not required by law. Electronically signed by: Axel Patel M.D. 09/12/2022 2:27 PM Discharge Plan Visit Data Chief Complaint: Weakness Stated Complaint: SHAKINESS, WEAKNESS ED Provider: Toi Smith Discharge Problem: Pulmonary edema, Hypoxia, MARY (acute kidney injury), Acute hyperkalemia, Pleural effusion, Angina pectoris, Elevated troponin I level Patient Disposition: Admitted As Inpatient Discharge Instructions Interventions: ED Discharge Assessment Last Done: 09/12/22 17:19 : Pulmonary edema Qualifiers: Chronicity: acute Qualified Code(s): J81.0 - Acute pulmonary edema
--- NOTE | 2022-09-12 14:29 | XRay Report ---
XR chest 1V portable HISTORY: dyspnea COMPARISON: Chest 08/03/2022. FINDINGS: No pneumothorax. The heart remains mildly enlarged. There is left-sided pacemaker and a car diac valve prosthesis. Mitral annulus calcifications again noted. Small bilateral pleural effusions a nd bibasilar densities persist. Mild congestive change again noted. IMPRESSION: No significant change in the mild congestive change, small bilateral pleural effusions, and bibasilar densities ACT 112: Negative or not required by law. Electronically signed by: Axel Patel M.D. 09/12/2022 2:27 PM
[2022-09-12 14:36] LABS: Base Excess VBG 9.2 mEq/L; HCO3 VBG 37 mmol/L; Oxygen Saturation VBG < 60.0 %; PCO2 VBG 62 mmHg (38-50); PO2 VBG 25 mmHg; pH VBG 7.38 (7.36-7.41)
[2022-09-12 14:51] LABS: Basophils # (auto) 0.03 K/uL (0-0.2); Basophils % (auto) 0.4 %; Eosinophils # (auto) 0.03 K/uL (0-0.50); Eosinophils % (auto) 0.4 %; Hematocrit (blood only) 35.5 % (34.1-44.9); Hemoglobin 11.1 g/dl (12.0-16.0); Immature Granulocytes # (auto) 0.04 K/uL (0.00-0.02); Immature Granulocytes % (auto) 0.6 %; Lymphocytes # (auto) 1.18 K/uL (1.2-3.4); Lymphocytes % (auto) 16.5 %; Mean Corpuscular Hemoglobin 30.2 pg (25.0-34.0); Mean Corpuscular Hgb Conc 31.3 g/dL (32.0-36.0); Mean Corpuscular Volume 96.7 fL (80.0-100.0); Mean Platelet Volume 9.9 fL (9.4-12.3); Monocytes # (auto) 0.67 K/uL (0.24-0.82); Monocytes % (auto) 9.4 %; Neutrophils % (auto) 72.7 %; Nucleated RBC # (auto) 0.02 K/uL (0-0); Nucleated RBC % (auto) 0.3 %; Platelet Count 305 K/uL (130-400); RDW Coefficient of Variation 14.9 % (11.5-14.5); RDW Standard Deviation 52.4 fL (36.4-46.3); Red Blood Count 3.67 M/uL (3.93-5.22); White Blood Count 7.15 K/ul (4.8-10.8)
[2022-09-12 15:03] LABS: Alanine Aminotransferase 18 U/L (7-52); Albumin Level 3.8 gm/dl (3.4-5.0); Alkaline Phosphatase 62 U/L (34-104); Anion Gap 11 (3-11); Aspartate Aminotransferase 27 U/L (13-39); BUN Creatinine Ratio 30.7 (10-20); Bilirubin Direct 0.3 mg/dl (0-0.2); Bilirubin,Total 0.7 mg/dl (0.2-1.0); Blood Urea Nitrogen 66 mg/dl (6-23); Calcium 9.8 mg/dl (8.5-10.1); Carbon Dioxide 36 mmol/L (21-32); Chloride 92 mmol/L (98-107); Est GFR (African American) 24.1 ml/min; Est GFR (Non-African American) 20.8 ml/min; Glucose 235 mg/dl (70-99(Fasting)); Magnesium 1.8 mg/dl (1.7-2.4); Potassium 5.3 mmol/L (3.5-5.1); Sodium 139 mmol/L (136-145); Total Protein 6.7 gm/dl (6.0-8.3)
[2022-09-12 15:15] LABS: INR 3.5 (0.9-1.1); Partial Thromboplastin Ratio 1.3; Partial Thromboplastin Time 35.6 Seconds (21.0-31.0)
[2022-09-12] MEDS ORDERED: SODIUM CHLORIDE 0.9% 250 ML IV ONE (15:18)
--- NOTE | 2022-09-12 15:40 | History & Physical Report ---
Date of Service September 12, 2022 Assessment & Plan (1) Acute on chronic combined systolic and diastolic heart failure: Plan: 82 y/o female with complex PMH including acute on chronic HFrEF with diastolic dysfunction, CAD w/ class 3-4 angina, PAF, tachy-tanner syndrome s/p PPM placement, aortic stenosis s/p TAVR, chronic AC, mitral stenosis, pulmonary HTN, DM2 with neuropathy, carotid stenosis s/o bilateral carotid endarterectomies, PVD, HTN, hypothyroidism, hyperlipidemia, GERD, chronic laryngospasm, RLS, glaucoma, and depression who presented today with progressive weakness and worsening respiratory status. Found to by hypoxic on presentation with a pulseox in the 70s, has responded to supplemental O2. Clinical picture c/w acute decompensation of chronic HFrEF with resultant hypoxia. Also noted to have an MARY, likely related to more aggressive diuretic regimen outpatient. Troponin noted to be elevated, likely due to demand ischemic from known CAD with class 4 angina, worsened by hypoxia, and current MARY. - Admit to PCU - Continue supplemental O2 - Aggressive diuresis due to fluid overload (as tolerated) - spoke with nephrology on-call (Dr. Echevarria) who recommended furosemide 60 mg IV x 1 dose now with additional overnight as needed - Joyner catheter, Is and Os, daily weights - Follow labs and replete electrolytes PRN - currently with mild hyperkalemia but suspect will improve with furosemide, will monitor - Repeat ECHO - Portable chest ultrasound to quantify pleural effusions - Repeat CXR in AM - Repeat EKG in AM, trend troponin - Continue nitro patch, other cardiac meds - Consult cardiology for additional recommendations - NPO at midnight in case intervention needed tomorrow (2) Hypoxia: (3) MARY (acute kidney injury): Plan: See plan for #1 - Consult nephrology - spoke with on-call provider as discussed. Appreciate input - Labs in AM - Monitor urine output and adjust diuresis as needed (4) Acute hyperkalemia: (5) Pleural effusion: (6) Elevated troponin I level: (7) Chronic anticoagulation: Plan: Outpatient coag clinic notes reviewed - target INR 2.0-3.0. INR today is 3.5. - Hold warfarin today - Dosing per INR - daily INR ordered (8) Angina pectoris: (9) ASCVD (arteriosclerotic cardiovascular disease): (10) Diabetes mellitus, type 2: Plan: Holding outpatient regimen. A1c 07/13/22 was 8.3 - Sliding scale insulin - Diabetic diet, BSG ACHS (11) Diabetic neuropathy: Plan: Continue gabapentin (12) GERD (gastroesophageal reflux disease): Plan: Continue PPI therapy (13) Hyperlipidemia: Plan: Continue statin (14) Hypertension: (15) Glaucoma: Plan Pt's prior records were extensively reviewed to assist with medical history. Case discussed with specialist as above. Pt seen and reviewed with attending physician, Dr. Werner. Plan of care discussed and as outlined above. Code Status: Full Code DVT Prophylaxis: on chronic warfarin Daughter updated at the bedside. She is concerned with pt's progressive weakness and would like to consider potential short-term rehab placement at discharge, instead of going directly home. Will order PT/OT evals once pt medically stable but for now, complete bedrest to minimize exertional demand. Gloria Patricio PA-C History of Present Illness Chief Complaint: progressive weaknes, worsening dyspnea Primary Care Provider: Natalio Moseley MD This is an 82 y/o female with a complicated PMH including acute on chronic HFrEF with diastolic dysfunction, CAD w/ class 3-4 angina, PAF, tachy-tanner syndrome s/p PPM placement, aortic stenosis s/p TAVR, chronic AC, mitral stenosis, pulmonary HTN, DM2 with neuropathy, carotid stenosis s/o bilateral carotid endarterectomies, PVD, HTN, hypothyroidism, hyperlipidemia, GERD, chronic laryngospasm, RLS, glaucoma, and depression who presents to the ED today with worsening weakness and trouble breathing with any exertion. Pt was admitted to this facility 07/12-07/17/22 with acute on chronic heart failure, managed with IV diuresis then transitioned to oral. Ranexa added but pt did not tolerate. Also treated for UTI with Rocephin then Keflex. Did well at home for a few days then gradual return of symptoms. Readmitted 08/03-08/06/22 with hypoxia due to acute on chronic combined heart failure. Again treated with IV diuresis, then transitioned to oral furosemide and discharged home. Pt and family felt like she never got back to baseline and gradually declined again at home. She has been following with cardiology closely - furosemide changed to torsemide 60 mg daily with improvement in fluid overload. However, creatinine increased from ~0.9 to 1.9 on 09/01/22 so torsemide decreased to 40 mg daily. Massimo burr notes pt with increased tremulousness since being on the torsemide. Over the last few days, she has been worsening again with increased LERNER and exertional chest pain. She was started on a nitro patch for class 4 angina earlier this month, which pt feels has helped somewhat. However, she is still taking a sublingual nitro before bed most evenings for chest pain, which seems to help. She has become more short of breath with exertion - was using O2 only at night but started using more frequently yesterday. Pulseox at home has been low but they attributed to machine malfunction. Presenting pulseox in the ED today was apparently in the 70s and daughter noted some perioral cyanosis. She is feeling somewhat better on oxygen in the ED. However, she continues to have chest pain with any exertion, including going to the bathroom, and associated dyspnea. Takes a few minutes to note improvement with rest. When evaluated, she had just returned from the bathroom and noted some mild residual chest burning at present. Daughter also noted that pt seemed more confused today than she had been. Peripheral edema has been improved from prior with change to torsemide. She does not note significant weight gain. Appetite is decreased but denies N/V/D. Mild cough yesterday but denies fevers, chills, sweats, sore throat, congestion. Chronic rhinorrhea related to allergies. Does take her blood sugars daily at home - notes sugars in the mornings are in the 120s, which is unchanged from usual for her. Allergies Allergy/AdvReac Type Severity Reaction Status Date / Time empagliflozin Allergy Intermediate BLOOD IN Verified 08/03/22 21:31 [From Jardiance] URINE, BLADDER INFECTION carbamazepine Allergy Mild RASH Verified 08/03/22 21:31 oxaprozin Allergy Mild RASH/HIVES Verified 08/03/22 21:31 valproic acid Allergy Mild HEAD-TOE Verified 08/03/22 21:31 RASH ranolazine [From Ranexa] AdvReac Dizziness Verified 08/04/22 03:12 Home Medications Medication Instructions Recorded Confirmed Type atorvastatin 80 mg tablet 80 mg PO QAM 06/12/19 09/12/22 History clopidogrel 75 mg tablet 75 mg PO QAM 06/12/19 09/12/22 History fluticasone propionate 50 2 spray intranasal DAILY 06/12/19 09/12/22 History mcg/actuation nasal spray,suspension (Flonase Allergy Relief) levothyroxine 25 mcg tablet 25 mcg PO DAILYBB 06/12/19 09/12/22 History nitroglycerin 0.4 mg sublingual 0.4 mg sublingual DIRECTED PRN 06/12/19 09/12/22 History tablet Chest Pain omeprazole 20 mg tablet,delayed 20 mg PO DAILY 06/12/19 09/12/22 History release ropinirole 0.25 mg tablet 0.25 mg PO HS 06/12/19 09/12/22 History metformin 500 mg tablet 500 mg PO BIDM 07/13/20 09/12/22 History netarsudil 0.02 % eye drops 1 drp OPB HS 11/11/20 09/12/22 History (Rhopressa) evolocumab 140 mg/mL subcutaneous 140 mg subcut .Q14 DAYS 02/27/21 09/12/22 History pen injector (Brad Mcfarlane) glipizide 5 mg tablet 10 mg PO DAILYBB 02/27/21 09/12/22 History isosorbide mononitrate 60 mg 120 mg PO QAM 02/27/21 09/12/22 History tablet,extended release 24 hr warfarin 5 mg tablet 5 mg PO DAILY@1600 02/27/21 09/12/22 History Cranberry Caps 360 mg PO DAILY 08/29/21 09/12/22 History diphenhydramine 25 2 tab PO HS 08/29/21 09/12/22 History mg-acetaminophen 500 mg tablet (Tylenol PM Extra Strength) iron,carbonyl 65 mg-vitamin C 125 1 tab PO QAM 07/12/22 09/12/22 History mg tablet,delayed release (Vitron-C) gabapentin 300 mg capsule 600 mg PO HS 08/03/22 09/12/22 History metoprolol succinate 100 mg 100 mg PO HS 08/03/22 09/12/22 History tablet,extended release 24 hr metoprolol succinate 100 mg 150 mg PO QAM 08/03/22 09/12/22 History tablet,extended release 24 hr latanoprost 0.005 % eye drops 1 drp OPB HS 09/12/22 09/12/22 History magnesium 200 mg tablet 200 mg PO AMHS 09/12/22 09/12/22 History multivitamin with minerals 1 tab PO DAILY 09/12/22 09/12/22 History (Multiple Vitamin-Minerals tablet) nitroglycerin 0.2 mg/hr 1 patch topical QAM 09/12/22 09/12/22 History transdermal 24 hour patch torsemide 20 mg tablet 40 mg PO QAM 09/12/22 09/12/22 History Past Med/Surg History Medical History Acute on chronic heart failure with reduced ejection fraction and diastolic dysfunction Afib CAD (coronary artery disease) Cardiac murmur no longer since heart valve surgery 02/2019 Carotid stenosis Chronic anticoagulation Chronic back pain 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 Decompensated heart failure Diabetes mellitus, type 2 GERD (gastroesophageal reflux disease) Glaucoma History of transcatheter aortic valve replacement (TAVR) Hyperlipidemia Hypertension Hypothyroidism Hypoxia, sleep related uses oxygen at hs 2.5 Laryngeal spasm Mitral stenosis On anticoagulant therapy on warfarin On home oxygen therapy 2.5 LITER AT HS Osteoarthritis Restless leg syndrome Tachy-tanner syndrome Surgical History History of abdominal surgery for bowel obstruction History of aortic valve replacement 02/26/19 @ [facility] [place]follows with Dr. Arredondo History of appendectomy History of cardiac cath x4 with a total of 4 stents--last--12/2018 @ [facility] [place] x1 DRUG ELUTING STENT History of colonoscopy History of esophagogastroduodenoscopy (EGD) History of heart artery stent a total of 4 stents--last--12/2018 @ [facility] [place] x1 DRUG ELUTING STENT History of hip surgery left 2 screws placed after total hip replacement History of lumbar laminectomy for spinal cord decompression x2 History of right cataract surgery History of tonsillectomy History of tooth extraction all teeth removed History of total hysterectomy with bilateral salpingo-oophorectomy (BSO) History of total left hip replacement History of total left knee replacement (TKR) History of total right knee replacement (TKR) S/P placement of cardiac pacemaker Aug 2021 S/P TAVR (transcatheter aortic valve replacement) Status post glaucoma surgery right eye Status post trigger finger release left hand Family History Mother Diabetes Osteoporosis Heart disease Grandmother (Maternal) Diabetes Father Heart disease Other Asthma No family history of adverse response to anesthesia Social History Smoking Status: Never smoker Tobacco Type: Cigarettes Second Hand Exposure: No; Hx Alcohol Use: No Hx Substance Use: No Preferred Language: Kyrgyz Communication Ability: Effective Pump Tender Required: No Beliefs That Will Affect Care: None marital status: Current Living Situation: Spouse Current Living Situation Comment: Lives with Other Information That Helps Us Care for You: Yes Feels Safe at Home: Yes Safety Concerns: Feels Safe At This Time Assistive Devices: Cane, Oxygen - Continuous and Walker Review of Systems Review of Systems: All systems reviewed & are unremarkable except as noted in HPI & below Constitutional: + fatigue, + weakness and + anorexia; no fever, no chills and no sweats Eyes: + worsening vision Ear, Nose, Mouth, Throat: + nasal discharge; no nasal congestion and no sore throat Respiratory: as per Subjective / HPI Cardiovascular: as per Subjective / HPI; no palpitations and no syncope Gastrointestinal: no abdominal pain, no nausea, no vomiting and no diarrhea/loose stools Genitourinary: no dysuria and no hematuria Musculoskeletal: + muscle weakness Integumentary: + problem reported (easy bruising related to anticoagulation) Neurologic: + generalized weakness and + confusion; no syncope and no headache(s) Psychiatric: + depression (related to worsening medical condition) Physical Exam Constitutional: + frail appearing and cooperative; no acute distress Eyes: PERRL, conjunctivae normal, anicteric sclerae ENMT: external ear and nose normal, oropharynx normal Neck: trachea midline Respiratory: no respiratory distress and does not use accessory muscles Auscultation: + diminished lung sounds mildly increased work of breathing after exertion to bathroom Cardiovascular: Rate/Rhythm: regular rate and regular rhythm Heart Sounds: + murmur Vessels: radial pulses present Extremities: + edema (1+ bilateral LE) Gastrointestinal (Abdomen): Inspection/Auscultation: normal bowel sounds; abdomen not distended Percussion/Palpation: abdomen soft; abdomen nontender Musculoskeletal: Head/Neck/Chest: normocephalic, head atraumatic and neck supple Skin: few areas of ecchymosis on arms Neurologic: moves all extremities; no focal motor deficits Psychiatric: A+Ox3, euthymic affect Results & Data Results & Data ([facility]) Vital Signs (Past 12 Hours) Vital Signs Temp Pulse Pulse Resp BP BP Pulse Ox 09/12/22 14:36 80 17 96 09/12/22 14:34 80 16 96 09/12/22 14:34 82 16 110/57 L 96 09/12/22 14:34 77 L 09/12/22 13:41 36.9 C 78 18 98/51 L 90 O2 Del Method O2 Flow Rate 09/12/22 14:36 Nasal Cannula 3 09/12/22 14:34 Nasal Cannula 3 09/12/22 14:34 Nasal Cannula 3 09/12/22 14:34 Room Air 0 09/12/22 13:41 Room Air Laboratory Results Laboratory Results - last 24 hr 09/12/22 09/12/22 09/12/22 14:17 14:17 14:17 WBC 7.15 RBC 3.67 L Hgb 11.1 L Hct 35.5 MCV 96.7 MCH 30.2 MCHC 31.3 L RDW Std Deviation 52.4 H RDW Coeff of Omid 14.9 H Plt Count 305 MPV 9.9 Immature Gran % (Auto) 0.6 Neut % (Auto) 72.7 Lymph % (Auto) 16.5 [place] % (Auto) 9.4 Eos % (Auto) 0.4 Baso % (Auto) 0.4 Neut # (Auto) 5.20 Lymph # (Auto) 1.18 L [place] # (Auto) 0.67 Eos # (Auto) 0.03 Baso # (Auto) 0.03 Immature Gran # (Auto) 0.04 H Absolute Nucleated RBC 0.02 H Nucleated RBC % (auto) 0.3 PT 35.0 H INR 3.5 H APTT 35.6 H PTT Ratio 1.3 VBG pH VBG pCO2 VBG pO2 VBG HCO3 VBG O2 Saturation VBG Base Excess Methemoglobin Sodium 139 Potassium 5.3 H Chloride 92 L Carbon Dioxide 36 H Anion Gap 11 BUN 66 H Creatinine 2.15 H Est Cr Clr Drug Dosing Not Reportable Est GFR ( Amer) 24.1 Est GFR (Non-Af Amer) 20.8 BUN/Creatinine Ratio 30.7 H Glucose 235 H Lactate Calcium 9.8 Magnesium 1.8 Total Bilirubin 0.7 Direct Bilirubin 0.3 H AST 27 ALT 18 Alkaline Phosphatase 62 Troponin I High Sens Pending B-Natriuretic Peptide Total Protein 6.7 Albumin 3.8 Procalcitonin 09/12/22 09/12/22 09/12/22 14:17 14:17 14:17 WBC RBC Hgb Hct MCV MCH MCHC RDW Std Deviation RDW Coeff of Omid Plt Count MPV Immature Gran % (Auto) Neut % (Auto) Lymph % (Auto) [place] % (Auto) Eos % (Auto) Baso % (Auto) Neut # (Auto) Lymph # (Auto) [place] # (Auto) Eos # (Auto) Baso # (Auto) Immature Gran # (Auto) Absolute Nucleated RBC Nucleated RBC % (auto) PT INR APTT PTT Ratio VBG pH 7.38 VBG pCO2 62 H VBG pO2 25 VBG HCO3 37 VBG O2 Saturation < 60.0 VBG Base Excess 9.2 Methemoglobin Sodium Potassium Chloride Carbon Dioxide Anion Gap BUN Creatinine Est Cr Clr Drug Dosing Est GFR ( Amer) Est GFR (Non-Af Amer) BUN/Creatinine Ratio Glucose Lactate Pending Calcium Magnesium Total Bilirubin Direct Bilirubin AST ALT Alkaline Phosphatase Troponin I High Sens B-Natriuretic Peptide Total Protein Albumin Procalcitonin < 0.05 09/12/22 09/12/22 14:17 14:17 WBC RBC Hgb Hct MCV MCH MCHC RDW Std Deviation RDW Coeff of Omid Plt Count MPV Immature Gran % (Auto) Neut % (Auto) Lymph % (Auto) [place] % (Auto) Eos % (Auto) Baso % (Auto) Neut # (Auto) Lymph # (Auto) [place] # (Auto) Eos # (Auto) Baso # (Auto) Immature Gran # (Auto) Absolute Nucleated RBC Nucleated RBC % (auto) PT INR APTT PTT Ratio VBG pH VBG pCO2 VBG pO2 VBG HCO3 VBG O2 Saturation VBG Base Excess Methemoglobin < 0.7 Sodium Potassium Chloride Carbon Dioxide Anion Gap BUN Creatinine Est Cr Clr Drug Dosing Est GFR ( Amer) Est GFR (Non-Af Amer) BUN/Creatinine Ratio Glucose Lactate Calcium Magnesium Total Bilirubin Direct Bilirubin AST ALT Alkaline Phosphatase Troponin I High Sens B-Natriuretic Peptide 4287 H Total Protein Albumin Procalcitonin Diagnostic Findings Chest X-ray 09/12/22 - IMPRESSION: No significant change in the mild congestive change, small bilateral pleural effusions, and bibasilar densities Medications Administered Discontinued Medications Sodium Chloride (Nss) 250 mls @ 999 mls/hr IV .Q16M ONE Stop: 09/12/22 15:33 Last Admin: 09/12/22 15:30 Dose: 999 mls/hr Documented By: AY Supervising Physician Co-Signing Physician Notes delayed entry date of service noted above Attending Addendum: care coordinated with STUART Patricio please refer to her notes for full details, I agree with her notes patient seen and examined, records reviewed by myself as well on exam, patient seen resting in bed, comfortable on 2 L NC no active chest pain, dyspnea, dizziness on exam no other symptoms VS noted and reviewed oriented x 3, not in distress, speaks in sentences with no effort nor accessory muscle use normal rate, regular rhythm, no murmurs (+) mild rales bilateral bases non distended, soft, nontender milf bipedal edema, erythema, warmth no neuro deficits all labs noted and reviewed including below ASSESSMENT AND PLAN> ACUTE ON CHRONIC CHF EXACERBATION WITH HYPOXIA ACUTE RENAL FAILURE Lasix 60mg IV one dose Nephro consulted Acid Pumper consulted other diagnoses and plan of care as per STUART Patricio's notes Nick Werner MD
[2022-09-12 15:47] LABS: Troponin I High Sensitivity 575.3 pg/ml (0-14)
[2022-09-12] MEDS ORDERED: FUROSEMIDE 40 MG/4 ML VIAL IV ONE (17:38)
[2022-09-12 18:20] LABS: Appearance Urine Cloudy (Clear); Bacteria Urine Automated 4+ (Negative); Bilirubin Urine Negative (Negative); Blood Urine Trace (Negative); Color Urine Yellow; Epithelial Cell Urine Auto 0-5 /lpf (0-5); Glucose Urine UA Negative (Negative); Ketones Urine Negative (Negative); Leukocyte Esterase Urine 2+ (Negative); Nitrite Urine Positive (Negative); Protein Urine Negative (Negative); RBC Urine Automated 0-4 /hpf (0-4); Urobilinogen Urine Negative (Negative); WBC Urine Automated >30 /hpf (0-5)
[2022-09-12 22:03] LABS: Anion Gap 10 (3-11); BUN Creatinine Ratio 33.8 (10-20); Blood Urea Nitrogen 69 mg/dl (6-23); Calcium 9.2 mg/dl (8.5-10.1); Carbon Dioxide 37 mmol/L (21-32); Chloride 93 mmol/L (98-107); Est GFR (African American) 25.7 ml/min; Est GFR (Non-African American) 22.1 ml/min; Glucose 160 mg/dl (70-99(Fasting)); Potassium 4.6 mmol/L (3.5-5.1); Sodium 140 mmol/L (136-145)
[2022-09-13] MEDS ORDERED: DEXTROSE 50% 50 ML SYRINGE IV PRN (03:10)
[2022-09-13] MEDS ORDERED: CARBOHYDRATES FOR HYPOGLYCEMIA PO PRN (03:10)
[2022-09-13] MEDS ORDERED: NETARSUDIL 0.02% OPB SCH (03:10)
[2022-09-13] MEDS ORDERED: GLUCOSE 10 TAB/TUBE PO PRN (03:10)
[2022-09-13] MEDS ORDERED: GLUCOSE 40% GEL 15 GM TUBE PO PRN (03:10)
[2022-09-13] MEDS ORDERED: NON-FORMULARY MEDICATION (Magnesium 200 mg tablet) PO SCH (03:10)
[2022-09-13] MEDS ORDERED: GLUCAGON FOR INJ 1 MG VIAL SQ PRN (03:10)
[2022-09-13] MEDS: GABAPENTIN 300 MG CAP PO SCH ×2 (04:44→20:48)
[2022-09-13] MEDS: LATANOPROST 0.005% OP SOLN 2.5 ML BTL OPB SCH ×2 (04:44→20:49)
[2022-09-13] MEDS: INSULIN ASPART PER UNIT SC SCH ×5 (04:44→20:59)
[2022-09-13] MEDS: METOPROLOL SUCC 50MG EXT REL TAB PO SCH ×3 (04:45→20:49)
[2022-09-13] MEDS: rOPINIRole HCL 0.25 MG TABLET PO SCH ×2 (04:45→20:48)
--- NOTE | 2022-09-13 06:20 | Electrocardiogram Report ---
Test Reason : Blood Pressure : / mmHG Vent. Rate : 084 BPM Atrial Rate : 084 BPM P-R Int : 000 ms QRS Dur : 152 ms QT Int : 434 ms P-R-T Axes : 035 117 036 degrees QTc Int : 512 ms Atrial-sensed ventricular-paced rhythm with occasional Premature ventricular complexes Abnormal ECG When compared with ECG of 03-AUG-2022 19:00, Premature ventricular complexes are now Present Vent. rate has decreased BY 12 BPM Confirmed by Jose L Jason ([id number]) on 09/13/2022 6:20:24 AM Referred By: REFERRED SELF Confirmed By:Jose L Jason
[2022-09-13] MEDS: FUROSEMIDE 40 MG/4 ML VIAL IV SCH ×2 (06:53→17:53)
--- NOTE | 2022-09-13 07:07 | Ultrasound Report ---
US effusion-chest/mediastinum HISTORY: 82 years-old Female bilateral - quantify pleural effusions STUDY in a patient with pleural effusions COMPARISON: Chest radiograph 09/12/2022 TECHNIQUE: Multiple real-time sonographic images of the chest were obtained assessing grayscale appea diaz FINDINGS: Limited exam secondary to lack of patient cooperation. Bilateral pleural effusions are redemonstrated . The right pleural effusion demonstrates a volume of approximately 174 mL. The left pleural effusion demonstrates a volume of approximately 279 mL. IMPRESSION: Bilateral pleural effusions as above, left greater than right. ACT 112: Negative or not required by law. The above report was generated using voice recognition software. It may contain grammatical, syntax o r spelling errors. Electronically signed by: Lorenzo Calabrese M.D. 09/13/2022 7:05 AM
--- NOTE | 2022-09-13 07:25 | XRay Report ---
XR chest 1V portable HISTORY: 82 years-old Female f/u pleural effusions follow-up study in a patient with pleural effusio ns COMPARISON: Chest radiograph September 12, 2022 TECHNIQUE: AP view of the chest FINDINGS: Cardiac silhouette is enlarged. Left subclavian pacer. Aortic endograft with dense calcifications of the mitral valve. Pulmonary vascular congestion with interstitial coarsening. Left greater than right pleural effusions appear stable on with bibasilar consolidation. Degenerative changes of the shoulde rs and spine with probable rotator cuff calcific tendinosis. IMPRESSION: 1. Cardiomegaly with unchanged pulmonary edema. 2. Stable left greater than right pleural effusions and mild bibasilar consolidation. ACT 112: Negative or not required by law. The above report was generated using voice recognition software. It may contain grammatical, syntax o r spelling errors. Electronically signed by: Lorenzo Calabrese M.D. 09/13/2022 7:23 AM
[2022-09-13] MEDS: CLOPIDOGREL BISULFATE 75 MG TAB PO SCH (07:52)
[2022-09-13] MEDS: ISOSORBIDE MONO EXTENDED REL 60 MG TABCR PO SCH (07:52)
[2022-09-13] MEDS: FERROUS SULFATE 325 MG TAB PO SCH (07:52)
[2022-09-13] MEDS: ATORVASTATIN 40 MG TAB PO SCH (07:52)
[2022-09-13] MEDS: LEVOTHYROXINE SODIUM 25 MCG TABLET PO SCH (07:52)
[2022-09-13] MEDS: ASCORBIC ACID 500 MG TAB PO SCH (07:52)
[2022-09-13] MEDS: FLUTICASONE PROPIONATE NA SPR 16 GM BTL NAE SCH (07:53)
[2022-09-13] MEDS: PANTOprazole 40 MG TAB PO SCH (07:53)
[2022-09-13] MEDS: NITROGLYCERIN 0.2 MG/HR PATCH TD SCH (07:54)
[2022-09-13] MEDS: MAGNESIUM OXIDE 400 MG TAB PO SCH ×2 (08:01→20:54)
--- NOTE | 2022-09-13 08:13 | Nephrology Consultation ---
Date of Consultation September 13, 2022 Assessment & Plan (1) MARY (acute kidney injury): stage 1 MARY w/ improved creatinine this am compared to arrival > likeliest cause is ischemic ATN d/t obligate diuretics to manage heart failure; given her obligate diuretic needs which are increaseing, suspect she will never again have normal renal function for long if ever adn that some of this admission will involve establishing new baseline renal function. -she is still overlaoded but bicarb elevated so will leave on lasix 40 mg IV bid >if respiratory distress/compensation may use one time 40-60 mg iv lasix >may need diamoxx depending on lab trends -daily bmp, mag, phos -treat UTI though not sure if this is uti versus asx bacteriuria -continue nephrotoxin avoidance History of Present Illness Reason for Consultation: MARY Requesting Physician: Dr Werner Attending Physician: Nick Werner MD History of Present Illness 82 y/o F whom I'm asked to see for acute renal failure was admitted yesterday afternoon w/ acute on chronic combined heart failure exacerbation and MARY after presenting w/ worsening weakness and exertional dyspnea. Her presenting creatinine was 2.2; creatinine is 1.9 this AM and 0.9 at baseline through May 2022. Her creatinine ran 1.1-1.2 in July. Then on September 01 (her last outpatient creatinine) her creatinine was 1.9. 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 She has had multiple admissions here recently for volume management including June 2022, July 2022, and now. She was d/c home last month and has in the interim needed an intensified diuretic regimen. She was on torsemide 60 mg daily initially but w/ creatinine going from 0.9 > 1.9 her dose was lowered to 40 mg daily. She has been having significant chest pain and exertional dyspnea > started on nitro patch past few weeks and taking SL NTG hs most nights. She had 60 mg IV lasix last evening and this am started on 40 mg IV bid. She tells me she feels much better this am in terms of breathing and has not had chest discomfort today. Yesterday she did have chest discomfort radiating to BL jaws. She does note ongoing limb tremors and wonders if this is from torsemide, of which her last dose was yesterday AM. feels her edema is a bit better. no n/v/d; no bm this admission so far. denies voiding concerns now or prior to admission. Daughter and enter during evaluation: daughter feels pt shoudl be d/c to rehab instead of home to "get her strength back" somewhat before returning home. Allergies Allergy/AdvReac Type Severity Reaction Status Date / Time empagliflozin Allergy Intermediate BLOOD IN Verified 08/03/22 21:31 [From Jardiance] URINE, BLADDER INFECTION carbamazepine Allergy Mild RASH Verified 08/03/22 21:31 oxaprozin Allergy Mild RASH/HIVES Verified 08/03/22 21:31 valproic acid Allergy Mild HEAD-TOE Verified 08/03/22 21:31 RASH ranolazine [From Ranexa] AdvReac Dizziness Verified 08/04/22 03:12 Home Medications Medication Instructions Recorded Confirmed Type atorvastatin 80 mg tablet 80 mg PO QAM 06/12/19 09/12/22 History clopidogrel 75 mg tablet 75 mg PO QAM 06/12/19 09/12/22 History fluticasone propionate 50 2 spray intranasal DAILY 06/12/19 09/12/22 History mcg/actuation nasal spray,suspension (Flonase Allergy Relief) levothyroxine 25 mcg tablet 25 mcg PO DAILYBB 06/12/19 09/12/22 History nitroglycerin 0.4 mg sublingual 0.4 mg sublingual DIRECTED PRN 06/12/19 09/12/22 History tablet Chest Pain omeprazole 20 mg tablet,delayed 20 mg PO DAILY 06/12/19 09/12/22 History release ropinirole 0.25 mg tablet 0.25 mg PO HS 06/12/19 09/12/22 History metformin 500 mg tablet 500 mg PO BIDM 07/13/20 09/12/22 History netarsudil 0.02 % eye drops 1 drp OPB HS 11/11/20 09/12/22 History (Rhopressa) evolocumab 140 mg/mL subcutaneous 140 mg subcut .Q14 DAYS 02/27/21 09/12/22 H istory pen injector (Brad Mcfarlane) glipizide 5 mg tablet 10 mg PO DAILYBB 02/27/21 09/12/22 History isosorbide mononitrate 60 mg 120 mg PO QAM 02/27/21 09/12/22 History tablet,extended release 24 hr warfarin 5 mg tablet 5 mg PO DAILY@1600 02/27/21 09/12/22 History Cranberry Caps 360 mg PO DAILY 08/29/21 09/12/22 History diphenhydramine 25 2 tab PO HS 08/29/21 09/12/22 History mg-acetaminophen 500 mg tablet (Tylenol PM Extra Strength) iron,carbonyl 65 mg-vitamin C 125 1 tab PO QAM 07/12/22 09/12/22 History mg tablet,delayed release (Vitron-C) gabapentin 300 mg capsule 600 mg PO HS 08/03/22 09/12/22 History metoprolol succinate 100 mg 100 mg PO HS 08/03/22 09/12/22 History tablet,extended release 24 hr metoprolol succinate 100 mg 150 mg PO QAM 08/03/22 09/12/22 History tablet,extended release 24 hr latanoprost 0.005 % eye drops 1 drp OPB HS 09/12/22 09/12/22 History magnesium 200 mg tablet 200 mg PO AMHS 09/12/22 09/12/22 History multivitamin with minerals 1 tab PO DAILY 09/12/22 09/12/22 History (Multiple Vitamin-Minerals tablet) nitroglycerin 0.2 mg/hr 1 patch topical QAM 09/12/22 09/12/22 History transdermal 24 hour patch torsemide 20 mg tablet 40 mg PO QAM 09/12/22 09/12/22 History Patient History Medical History Acute on chronic heart failure with reduced ejection fraction and diastolic dysfunction Afib CAD (coronary artery disease) Cardiac murmur no longer since heart valve surgery 02/2019 Carotid stenosis Chronic anticoagulation Chronic back pain 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 Decompensated heart failure Diabetes mellitus, type 2 GERD (gastroesophageal reflux disease) Glaucoma History of transcatheter aortic valve replacement (TAVR) Hyperlipidemia Hypertension Hypothyroidism Hypoxia, sleep related uses oxygen at hs 2.5 Laryngeal spasm Mitral stenosis On anticoagulant therapy on warfarin On home oxygen therapy 2.5 LITER AT HS Osteoarthritis Restless leg syndrome Tachy-tanner syndrome Surgical History History of abdominal surgery for bowel obstruction History of aortic valve replacement 02/26/19 @ [facility] [place]follows with Dr. Arredondo History of appendectomy History of cardiac cath x4 with a total of 4 stents--last--12/2018 @ [facility] [place] DRUG ELUTING STENT History of colonoscopy History of esophagogastroduodenoscopy (EGD) History of heart artery stent a total of 4 stents--last--12/2018 @ [facility] [place] DRUG ELUTING STENT History of hip surgery left 2 screws placed after total hip replacement History of lumbar laminectomy for spinal cord decompression x2 History of right cataract surgery History of tonsillectomy History of tooth extraction all teeth removed History of total hysterectomy with bilateral salpingo-oophorectomy (BSO) History of total left hip replacement History of total left knee replacement (TKR) History of total right knee replacement (TKR) S/P placement of cardiac pacemaker Aug 2021 S/P TAVR (transcatheter aortic valve replacement) Status post glaucoma surgery right eye Status post trigger finger release left hand Family History Mother Diabetes Osteoporosis Heart disease Grandmother (Maternal) Diabetes Father Heart disease Other Asthma No family history of adverse response to anesthesia Social History Smoking Status: Never smoker Tobacco Type: Cigarettes Second Hand Exposure: No; Hx Alcohol Use: No Hx Substance Use: No Preferred Language: Algerian Communication Ability: Effective Welfare Supervisor Required: No Beliefs That Will Affect Care: None marital status: Current Living Situation: Spouse Current Living Situation Comment: Lives with Other Information That Helps Us Care for You: Yes Feels Safe at Home: Yes Safety Concerns: Feels Safe At This Time Assistive Devices: Cane, Oxygen - Continuous and Walker Review of Systems Review of Systems: All systems reviewed & are unremarkable except as noted in HPI & below Physical Exam Constitutional: well developed, well nourished, + frail appearing and cooperative; no acute distress Eyes: EOM intact bilaterally ENMT: Ears: no external ear abnormality Nose: no external nose abnormality Mouth: + dry oral mucous membranes Neck: no nuchal rigidity Respiratory: normal respiratory effort (at rest), + labored breathing (with exam maneuvers -- w/ rolling to one side in bed for lung exam), able to speak in complete sentences and + paradoxical thoraco-abdominal movement (with exam maneuvers); no cough Auscultation: + diminished lung sounds and + crackles (throughout lower posterior mello) Cardiovascular: Rate/Rhythm: regular rate and regular rhythm Extremities: + edema (1++) Gastrointestinal (Abdomen): Inspection/Auscultation: normal bowel sounds Percussion/Palpation: abdomen soft; abdomen nontender Musculoskeletal: Extremities: strength 5/5 throughout Skin: no rashes, warm and dry Neurologic: randall, fluent speech, no tremor but some myoclonic jerks ([place]) Psychiatric: Orientation: oriented x 3 Genitourinary: ruiz w/ ample urine Results & Data ([facility]) Vital Signs (Past 12 Hours) Vital Signs Temp Pulse Pulse Resp BP BP Pulse Ox 09/13/22 07:54 36.7 C 74 18 124/59 L 98 09/13/22 04:26 09/13/22 03:10 36.6 C 75 18 136/72 95 09/13/22 03:10 09/13/22 03:40 09/13/22 03:36 36.5 C 76 16 102/80 98 09/13/22 02:30 68 14 98 09/13/22 02:30 108/47 L 09/13/22 02:20 68 15 99 09/13/22 02:10 69 18 99 09/13/22 02:00 70 17 98 09/13/22 02:00 129/64 09/13/22 01:50 70 21 99 09/13/22 01:40 69 13 100 09/13/22 01:30 69 12 99 09/13/22 01:30 103/55 L 09/13/22 01:20 69 13 99 09/13/22 01:10 71 15 99 09/13/22 01:00 74 15 100 09/13/22 01:00 133/73 09/13/22 00:50 74 16 99 09/13/22 00:40 74 18 09/13/22 00:30 74 16 09/13/22 00:30 138/101 H 09/13/22 00:29 132/67 09/13/22 00:29 73 18 09/13/22 00:24 83 24 09/13/22 00:10 66 13 99 09/13/22 00:00 68 17 99 09/13/22 00:00 98/50 L 09/12/22 23:50 69 14 99 09/12/22 23:40 69 19 99 09/12/22 23:30 70 16 99 09/12/22 23:30 111/55 L 09/12/22 23:20 71 13 100 09/12/22 23:10 73 17 97 09/12/22 23:00 72 20 100 09/12/22 23:00 123/53 L 09/12/22 22:50 72 16 99 09/12/22 22:40 70 12 99 09/12/22 22:30 71 13 99 09/12/22 22:30 108/53 L 09/12/22 22:20 72 14 99 09/12/22 22:10 72 15 99 09/12/22 22:00 73 15 09/12/22 22:00 113/61 09/12/22 21:50 74 14 90 09/12/22 21:40 74 19 99 09/12/22 21:30 76 16 99 09/12/22 21:30 111/54 L 09/12/22 21:20 75 15 98 09/12/22 21:10 75 15 99 09/12/22 21:00 77 18 98 09/12/22 21:00 115/57 L 09/12/22 20:50 78 18 98 09/12/22 20:40 81 23 100 09/13/22 02:36 09/12/22 22:28 71 18 113/61 99 Pulse Ox O2 Del Method O2 Flow Rate 09/13/22 07:54 Nasal Cannula 2 09/13/22 04:26 Nasal Cannula 2 09/13/22 03:10 Nasal Cannula 4 09/13/22 03:10 94 09/13/22 03:40 Nasal Cannula 3 09/13/22 03:36 Nasal Cannula 2 09/13/22 02:30 09/13/22 02:30 09/13/22 02:20 09/13/22 02:10 09/13/22 02:00 09/13/22 02:00 09/13/22 01:50 09/13/22 01:40 09/13/22 01:30 09/13/22 01:30 09/13/22 01:20 09/13/22 01:10 09/13/22 01:00 09/13/22 01:00 09/13/22 00:50 09/13/22 00:40 09/13/22 00:30 09/13/22 00:30 09/13/22 00:29 09/13/22 00:29 09/13/22 00:24 09/13/22 00:10 09/13/22 00:00 09/13/22 00:00 09/12/22 23:50 09/12/22 23:40 09/12/22 23:30 09/12/22 23:30 09/12/22 23:20 09/12/22 23:10 09/12/22 23:00 09/12/22 23:00 09/12/22 22:50 09/12/22 22:40 09/12/22 22:30 09/12/22 22:30 09/12/22 22:20 09/12/22 22:10 09/12/22 22:00 09/12/22 22:00 09/12/22 21:50 09/12/22 21:40 09/12/22 21:30 09/12/22 21:30 09/12/22 21:20 09/12/22 21:10 09/12/22 21:00 09/12/22 21:00 09/12/22 20:50 09/12/22 20:40 3 09/13/22 02:36 Room Air 09/12/22 22:28 Nasal Cannula 2 Laboratory Results 09/12/22 14:17 09/13/22 07:50 ua reviewed and urine cxs > likely E Coli UTI given cx hx; for now GNR in urine; blood cxs ngtd Diagnostic Findings TTE June 2022 EF 35-40%, appropriate TAVR function, moderate mitral stenosis, severe pulm hypertension chest u/s Bilateral pleural effusions are redemonstrated. The right pleural effusion demonstrates a volume of approximately 174 mL. The left pleural effusion demonstrates a volume of approximately 279 mL. IMPRESSION: Bilateral pleural effusions as above, left greater than right. cxr this am 1. Cardiomegaly with unchanged pulmonary edema. 2. Stable left greater than right pleural effusions and mild bibasilar consolidation.
[2022-09-13 08:16] LABS: INR 2.6 (0.9-1.1); Prothrombin Time 26.2 Seconds (9.0-12.0)
--- NOTE | 2022-09-13 08:38 | Cardiology Consultation ---
Date of Consultation September 13, 2022 Assessment & Plan (1) Acute on chronic combined systolic and diastolic heart failure: (2) Hypoxia: (3) Pulmonary edema: (4) Troponin level elevated: (5) CKD (chronic kidney disease): Plan Nephrology's help for appreciated and agree with the diuretic and plan. Clinically she looks good this morning and I do not believe that she is in acute congestive heart failure at this time. Once she has improved and is ready for discharge, then consideration should be given to short-term placement either in a retirement home or rehab center prior to returning home. History of Present Illness Attending Physician: Nick Werner MD History of Present Illness This is an 82-year-old female with a very complex cardiac history as outlined below. She has had several hospital admissions over the past few months for volume overload. She lives independently with her . She states that he is not well and where she had previously cared for him the past 2 to 3 years more recently he has been trying to care for her and it has not been going well. As outlined in the nephrology consult. The patient has had difficulty recently maintaining fluid balance. Despite efforts by Thaddeus Cole and our clinic with increases and changes in her loop diuretics she presented with volume overload and congestive heart failure. Past medical history: 1.ASCVD 1.Status post PCI of the proximal LAD with a DENISE on on May 19, 2017 2.Status post PCI of the mid LAD with a 2.75 x 26 mm Resolute Segundo drug eluting stent (overlapping with the previously placed Xience drug eluting) on 01/25/2019 3.Presentation in November 2020 with cescendo angina. Diagnostic cardiac catheterization demonstrating a 95% mid LAD stenosis distal to the prior stent with intervention complicated by significant dissection of the left main coronary artery extending into the left circumflex and left anterior descending. The mid LCX into the OM3 was stented with a drug eluting stent with resultant KHARI grade III flow, residual nonflow limiting dissection in the proximal LCX. Attempts to cross the LAD occlusion were unsuccessful. 4.Class 3 angina pectoris with low level exertional tolerance 5.Ischemic cardiomyopathy with resting echocardiography in June 2022 revealing mild to moderate reduction in LV systolic function, ejection fraction 35 to 40% 2.Paroxysmal atrial fibrillation with a rapid ventricular response first documented while hospitalized at [facility] in November 2020, highly symptomatic, significant angina symptoms 3.Severe aortic valve stenosis status post February 26, 2019 TAVR with a #23 mm Najera Sade S3 Valve on 02/26/2019. 4.Calcific mitral stenosis, moderate or greater. 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 6.Carotid occlusive disease. Status post left carotid endarterectomy in 05/2013. Status post June 2016 right carotid endarterectomy by Dr. Jose. 7.Chronic obstructive and restrictive pulmonary disease, asthma 8.Hypertension. 9.Hyperlipidemia. 10.Diabetes mellitus with neuropathy. Allergies Allergy/AdvReac Type Severity Reaction Status Date / Time empagliflozin Allergy Intermediate BLOOD IN Verified 08/03/22 21:31 [From Jardiance] URINE, BLADDER INFECTION carbamazepine Allergy Mild RASH Verified 08/03/22 21:31 oxaprozin Allergy Mild RASH/HIVES Verified 08/03/22 21:31 valproic acid Allergy Mild HEAD-TOE Verified 08/03/22 21:31 RASH ranolazine [From Ranexa] AdvReac Dizziness Verified 08/04/22 03:12 Home Medications Medication Instructions Recorded Confirmed Type atorvastatin 80 mg tablet 80 mg PO QAM 06/12/19 09/12/22 History clopidogrel 75 mg tablet 75 mg PO QAM 06/12/19 09/12/22 History fluticasone propionate 50 2 spray intranasal DAILY 06/12/19 09/12/22 History mcg/actuation nasal spray,suspension (Flonase Allergy Relief) levothyroxine 25 mcg tablet 25 mcg PO DAILYBB 06/12/19 09/12/22 History nitroglycerin 0.4 mg sublingual 0.4 mg sublingual DIRECTED PRN 06/12/19 09/12/22 History tablet Chest Pain omeprazole 20 mg tablet,delayed 20 mg PO DAILY 06/12/19 09/12/22 History release ropinirole 0.25 mg tablet 0.25 mg PO HS 06/12/19 09/12/22 History metformin 500 mg tablet 500 mg PO BIDM 07/13/20 09/12/22 History netarsudil 0.02 % eye drops 1 drp OPB HS 11/11/20 09/12/22 History (Rhopressa) evolocumab 140 mg/mL subcutaneous 140 mg subcut .Q14 DAYS 02/27/21 09/12/22 History pen injector (Brad Mcfarlane) glipizide 5 mg tablet 10 mg PO DAILYBB 02/27/21 09/12/22 History isosorbide mononitrate 60 mg 120 mg PO QAM 02/27/21 09/12/22 History tablet,extended release 24 hr warfarin 5 mg tablet 5 mg PO DAILY@1600 02/27/21 09/12/22 History Cranberry Caps 360 mg PO DAILY 08/29/21 09/12/22 History diphenhydramine 25 2 tab PO HS 08/29/21 09/12/22 History mg-acetaminophen 500 mg tablet (Tylenol PM Extra Strength) iron,carbonyl 65 mg-vitamin C 125 1 tab PO QAM 07/12/22 09/12/22 History mg tablet,delayed release (Vitron-C) gabapentin 300 mg capsule 600 mg PO HS 08/03/22 09/12/22 History metoprolol succinate 100 mg 100 mg PO HS 08/03/22 09/12/22 History tablet,extended release 24 hr metoprolol succinate 100 mg 150 mg PO QAM 08/03/22 09/12/22 History tablet,extended release 24 hr latanoprost 0.005 % eye drops 1 drp OPB HS 09/12/22 09/12/22 History magnesium 200 mg tablet 200 mg PO AMHS 09/12/22 09/12/22 History multivitamin with minerals 1 tab PO DAILY 09/12/22 09/12/22 History (Multiple Vitamin-Minerals tablet) nitroglycerin 0.2 mg/hr 1 patch topical QA 09/12/22 09/12/22 History transdermal 24 hour patch torsemide 20 mg tablet 40 mg PO QAM 09/12/22 09/12/22 History Patient History Medical History Acute on chronic heart failure with reduced ejection fraction and diastolic dysfunction Afib CAD (coronary artery disease) Cardiac murmur no longer since heart valve surgery 02/2019 Carotid stenosis Chronic anticoagulation Chronic back pain 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 Decompensated heart failure Diabetes mellitus, type 2 GERD (gastroesophageal reflux disease) Glaucoma History of transcatheter aortic valve replacement (TAVR) Hyperlipidemia Hypertension Hypothyroidism Hypoxia, sleep related uses oxygen at hs 2.5 Laryngeal spasm Mitral stenosis On anticoagulant therapy on warfarin On home oxygen therapy 2.5 LITER AT HS Osteoarthritis Restless leg syndrome Tachy-reza syndrome Surgical History History of abdominal surgery for bowel obstruction History of aortic valve replacement 02/26/19 @ [facility] [place]--follows with Dr. Arredondo History of appendectomy History of cardiac cath x4 with a total of 4 stents--last--12/2018 @ [facility] [place] x1 DRUG ELUTING STENT History of colonoscopy History of esophagogastroduodenoscopy (EGD) History of heart artery stent a total of 4 stents--last--12/2018 @ [facility] [place] x1 DRUG ELUTING STENT History of hip surgery left 2 screws placed after total hip replacement History of lumbar laminectomy for spinal cord decompression x2 History of right cataract surgery History of tonsillectomy History of tooth extraction all teeth removed History of total hysterectomy with bilateral salpingo-oophorectomy (BSO) History of total left hip replacement History of total left knee replacement (TKR) History of total right knee replacement (TKR) S/P placement of cardiac pacemaker Aug 2021 S/P TAVR (transcatheter aortic valve replacement) Status post glaucoma surgery right eye Status post trigger finger release left hand Family History Mother Diabetes Osteoporosis Heart disease Grandmother (Maternal) Diabetes Father Heart disease Other Asthma No family history of adverse response to anesthesia Social History Smoking Status: Never smoker Tobacco Type: Cigarettes Second Hand Exposure: No; Hx Alcohol Use: No Hx Substance Use: No Preferred Language: Cymraes Communication Ability: Effective Academic Assistant Required: No Beliefs That Will Affect Care: None marital status: Current Living Situation: Spouse Current Living Situation Comment: Lives with Other Information That Helps Us Care for You: Yes Feels Safe at Home: Yes Safety Concerns: Feels Safe At This Time Assistive Devices: Cane, Oxygen - Continuous and Walker Review of Systems Review of Systems: Review of Systems: See HPI for pertinent positives. All other 10 point review of systems are negative. Physical Exam Physical Exam: General: no acute distress and stated age Head: normocephalic, no masses, lesions, tenderness or abnormalities Eyes: conjunctiva are pink and non-injected, sclera clear Neck: supple, no adenopathy, no bruits, normal jugular venous pulse, no hepatojugular reflux Chest: normal shape and normal respiratory effort Lungs: clear to auscultation and percussion Cardiac Exam: - regular rate & rhythm, no murmurs gallops or rubs - normal S1, normal S2 Pulses: 2(+) throughout Abdomen: abdomen soft, non-tender, no abnormal masses and no hepatosplenomegaly Musculoskeletal: no gait disturbance, no joint inflammation, no deforming arthritis Extremities: no edema and no cyanosis Neuro: grossly normal exam Results & Data ([facility]) Vital Signs (Past 12 Hours) Vital Signs Temp Pulse Pulse Resp BP BP Pulse Ox 09/13/22 08:00 09/13/22 07:54 36.7 C 74 18 124/59 L 98 09/13/22 04:26 09/13/22 03:10 36.6 C 75 18 136/72 95 09/13/22 03:10 09/13/22 03:40 09/13/22 03:36 36.5 C 76 16 102/80 98 09/13/22 02:30 68 14 98 09/13/22 02:30 108/47 L 09/13/22 02:20 68 15 99 09/13/22 02:10 69 18 99 09/13/22 02:00 70 17 98 09/13/22 02:00 129/64 09/13/22 01:50 70 21 99 09/13/22 01:40 69 13 100 09/13/22 01:30 69 12 99 09/13/22 01:30 103/55 L 09/13/22 01:20 69 13 99 09/13/22 01:10 71 15 99 09/13/22 01:00 74 15 100 09/13/22 01:00 133/73 09/13/22 00:50 74 16 99 09/13/22 00:40 74 18 09/13/22 00:30 74 16 09/13/22 00:30 138/101 H 09/13/22 00:29 132/67 09/13/22 00:29 73 18 09/13/22 00:24 83 24 09/13/22 00:10 66 13 99 09/13/22 00:00 68 17 99 09/13/22 00:00 98/50 L 09/12/22 23:50 69 14 99 09/12/22 23:40 69 19 99 09/12/22 23:30 70 16 99 09/12/22 23:30 111/55 L 09/12/22 23:20 71 13 100 09/12/22 23:10 73 17 97 09/12/22 23:00 72 20 100 09/12/22 23:00 123/53 L 09/12/22 22:50 72 16 99 09/12/22 22:40 70 12 99 09/12/22 22:30 71 13 99 09/12/22 22:30 108/53 L 09/12/22 22:20 72 14 99 09/12/22 22:10 72 15 99 09/12/22 22:00 73 15 09/12/22 22:00 113/61 09/12/22 21:50 74 14 90 09/12/22 21:40 74 19 99 09/12/22 21:30 76 16 99 09/12/22 21:30 111/54 L 09/12/22 21:20 75 15 98 09/12/22 21:10 75 15 99 09/12/22 21:00 77 18 98 09/12/22 21:00 115/57 L 09/12/22 20:50 78 18 98 09/12/22 20:40 81 23 100 09/13/22 02:36 09/12/22 22:28 71 18 113/61 99 Pulse Ox O2 Del Method O2 Del Method O2 Flow Rate O2 Flow Rate 09/13/22 08:00 98 Nasal Cannula 2 09/13/22 07:54 Nasal Cannula 2 09/13/22 04:26 Nasal Cannula 2 09/13/22 03:10 Nasal Cannula 4 09/13/22 03:10 94 09/13/22 03:40 Nasal Cannula 3 09/13/22 03:36 Nasal Cannula 2 09/13/22 02:30 09/13/22 02:30 09/13/22 02:20 09/13/22 02:10 09/13/22 02:00 09/13/22 02:00 09/13/22 01:50 09/13/22 01:40 09/13/22 01:30 09/13/22 01:30 09/13/22 01:20 09/13/22 01:10 09/13/22 01:00 09/13/22 01:00 09/13/22 00:50 09/13/22 00:40 09/13/22 00:30 09/13/22 00:30 09/13/22 00:29 09/13/22 00:29 09/13/22 00:24 09/13/22 00:10 09/13/22 00:00 09/13/22 00:00 09/12/22 23:50 09/12/22 23:40 09/12/22 23:30 09/12/22 23:30 09/12/22 23:20 09/12/22 23:10 09/12/22 23:00 09/12/22 23:00 09/12/22 22:50 09/12/22 22:40 09/12/22 22:30 09/12/22 22:30 09/12/22 22:20 09/12/22 22:10 09/12/22 22:00 09/12/22 22:00 09/12/22 21:50 09/12/22 21:40 09/12/22 21:30 09/12/22 21:30 09/12/22 21:20 09/12/22 21:10 09/12/22 21:00 09/12/22 21:00 09/12/22 20:50 09/12/22 20:40 3 09/13/22 02:36 Room Air 09/12/22 22:28 Nasal Cannula 2 Laboratory Results Laboratory Results - last 24 hr 09/12/22 09/12/22 09/12/22 14:17 14:17 14:17 WBC 7.15 RBC 3.67 L Hgb 11.1 L Hct 35.5 MCV 96.7 MCH 30.2 MCHC 31.3 L RDW Std Deviation 52.4 H RDW Coeff of Moid 14.9 H Plt Count 305 MPV 9.9 Immature Gran % (Auto) 0.6 Neut % (Auto) 72.7 Lymph % (Auto) 16.5 [place] % (Auto) 9.4 Eos % (Auto) 0.4 Baso % (Auto) 0.4 Neut # (Auto) 5.20 Lymph # (Auto) 1.18 L [place] # (Auto) 0.67 Eos # (Auto) 0.03 Baso # (Auto) 0.03 Immature Gran # (Auto) 0.04 H Absolute Nucleated RBC 0.02 H Nucleated RBC % (auto) 0.3 PT 35.0 H INR 3.5 H APTT 35.6 H PTT Ratio 1.3 VBG pH VBG pCO2 VBG pO2 VBG HCO3 VBG O2 Saturation VBG Base Excess Methemoglobin Sodium 139 Potassium 5.3 H Chloride 92 L Carbon Dioxide 36 H Anion Gap 11 BUN 66 H Creatinine 2.15 H Est Cr Clr Drug Dosing Not Reportable Est GFR ( Amer) 24.1 Est GFR (Non-Af Amer) 20.8 BUN/Creatinine Ratio 30.7 H Glucose 235 H POC Glucose Lactate Calcium 9.8 Magnesium 1.8 Total Bilirubin 0.7 Direct Bilirubin 0.3 H AST 27 ALT 18 Alkaline Phosphatase 62 Troponin I High Sens 575.3 H* B-Natriuretic Peptide Total Protein 6.7 Albumin 3.8 Procalcitonin Urine Color Urine Appearance Urine pH Ur Specific [place] Urine Protein Urine Glucose (UA) Urine Ketones Urine Blood Urine Nitrite Urine Bilirubin Urine Urobilinogen Ur Leukocyte Esterase Urine WBC (Auto) Urine RBC (Auto) U Hyaline Cast (Auto) U Epithel Cells (Auto) Urine Bacteria (Auto) SARS-CoV-2, RNA, NAAT 09/12/22 09/12/22 09/12/22 14:17 14:17 14:17 WBC RBC Hgb Hct MCV MCH MCHC RDW Std Deviation RDW Coeff of Omid Plt Count MPV Immature Gran % (Auto) Neut % (Auto) Lymph % (Auto) [place] % (Auto) Eos % (Auto) Baso % (Auto) Neut # (Auto) Lymph # (Auto) [place] # (Auto) Eos # (Auto) Baso # (Auto) Immature Gran # (Auto) Absolute Nucleated RBC Nucleated RBC % (auto) PT INR APTT PTT Ratio VBG pH 7.38 VBG pCO2 62 H VBG pO2 25 VBG HCO3 37 VBG O2 Saturation < 60.0 VBG Base Excess 9.2 Methemoglobin Sodium Potassium Chloride Carbon Dioxide Anion Gap BUN Creatinine Est Cr Clr Drug Dosing Est GFR ( Amer) Est GFR (Non-Af Amer) BUN/Creatinine Ratio Glucose POC Glucose Lactate 3.8 H* Calcium Magnesium Total Bilirubin Direct Bilirubin AST ALT Alkaline Phosphatase Troponin I High Sens B-Natriuretic Peptide Total Protein Albumin Procalcitonin < 0.05 Urine Color Urine Appearance Urine pH Ur Specific [place] Urine Protein Urine Glucose (UA) Urine Ketones Urine Blood Urine Nitrite Urine Bilirubin Urine Urobilinogen Ur Leukocyte Esterase Urine WBC (Auto) Urine RBC (Auto) U Hyaline Cast (Auto) U Epithel Cells (Auto) Urine Bacteria (Auto) SARS-CoV-2, RNA, NAAT 09/12/22 09/12/22 09/12/22 14:17 14:17 16:17 WBC RBC Hgb Hct MCV MCH MCHC RDW Std Deviation RDW Coeff of Omid Plt Count MPV Immature Gran % (Auto) Neut % (Auto) Lymph % (Auto) [place] % (Auto) Eos % (Auto) Baso % (Auto) Neut # (Auto) Lymph # (Auto) [place] # (Auto) Eos # (Auto) Baso # (Auto) Immature Gran # (Auto) Absolute Nucleated RBC Nucleated RBC % (auto) PT INR APTT PTT Ratio VBG pH VBG pCO2 VBG pO2 VBG HCO3 VBG O2 Saturation VBG Base Excess Methemoglobin < 0.7 Sodium Potassium Chloride Carbon Dioxide Anion Gap BUN Creatinine Est Cr Clr Drug Dosing Est GFR ( Amer) Est GFR (Non-Af Amer) BUN/Creatinine Ratio Glucose POC Glucose Lactate 3.5 H* Calcium Magnesium Total Bilirubin Direct Bilirubin AST ALT Alkaline Phosphatase Troponin I High Sens B-Natriuretic Peptide 4287 H Total Protein Albumin Procalcitonin Urine Color Urine Appearance Urine pH Ur Specific [place] Urine Protein Urine Glucose (UA) Urine Ketones Urine Blood Urine Nitrite Urine Bilirubin Urine Urobilinogen Ur Leukocyte Esterase Urine WBC (Auto) Urine RBC (Auto) U Hyaline Cast (Auto) U Epithel Cells (Auto) Urine Bacteria (Auto) SARS-CoV-2, RNA, NAAT 09/12/22 09/12/22 09/12/22 17:22 20:39 20:39 WBC RBC Hgb Hct MCV MCH MCHC RDW Std Deviation RDW Coeff of Omid Plt Count MPV Immature Gran % (Auto) Neut % (Auto) Lymph % (Auto) [place] % (Auto) Eos % (Auto) Baso % (Auto) Neut # (Auto) Lymph # (Auto) [place] # (Auto) Eos # (Auto) Baso # (Auto) Immature Gran # (Auto) Absolute Nucleated RBC Nucleated RBC % (auto) PT INR APTT PTT Ratio VBG pH VBG pCO2 VBG pO2 VBG HCO3 VBG O2 Saturation VBG Base Excess Methemoglobin Sodium 140 Potassium 4.6 Chloride 93 L Carbon Dioxide 37 H Anion Gap 10 BUN 69 H Creatinine 2.04 H Est Cr Clr Drug Dosing Not Reportable Est GFR ( Amer) 25.7 Est GFR (Non-Af Amer) 22.1 BUN/Creatinine Ratio 33.8 H Glucose 160 H POC Glucose Lactate Calcium 9.2 Magnesium Total Bilirubin Direct Bilirubin AST ALT Alkaline Phosphatase Troponin I High Sens 503.5 H* B-Natriuretic Peptide Total Protein Albumin Procalcitonin Urine Color Yellow Urine Appearance Cloudy A Urine pH 6.0 Ur Specific [place] 1.010 Urine Protein Negative Urine Glucose (UA) Negative Urine Ketones Negative Urine Blood Trace H Urine Nitrite Positive A Urine Bilirubin Negative Urine Urobilinogen Negative Ur Leukocyte Esterase 2+ H Urine WBC (Auto) >30 H Urine RBC (Auto) 0-4 U Hyaline Cast (Auto) 10-30 H U Epithel Cells (Auto) 0-5 Urine Bacteria (Auto) 4+ H SARS-CoV-2, RNA, NAAT 09/12/22 09/13/22 09/13/22 Unknown 01:50 06:50 WBC RBC Hgb Hct MCV MCH MCHC RDW Std Deviation RDW Coeff of Omid Plt Count MPV Immature Gran % (Auto) Neut % (Auto) Lymph % (Auto) [place] % (Auto) Eos % (Auto) Baso % (Auto) Neut # (Auto) Lymph # (Auto) [place] # (Auto) Eos # (Auto) Baso # (Auto) Immature Gran # (Auto) Absolute Nucleated RBC Nucleated RBC % (auto) PT INR APTT PTT Ratio VBG pH VBG pCO2 VBG pO2 VBG HCO3 VBG O2 Saturation VBG Base Excess Methemoglobin Sodium Potassium Chloride Carbon Dioxide Anion Gap BUN Creatinine Est Cr Clr Drug Dosing Est GFR ( Amer) Est GFR (Non-Af Amer) BUN/Creatinine Ratio Glucose POC Glucose 76 Lactate Calcium Magnesium Total Bilirubin Direct Bilirubin AST ALT Alkaline Phosphatase Troponin I High Sens 384.2 H* D B-Natriuretic Peptide Total Protein Albumin Procalcitonin Urine Color Urine Appearance Urine pH Ur Specific [place] Urine Protein Urine Glucose (UA) Urine Ketones Urine Blood Urine Nitrite Urine Bilirubin Urine Urobilinogen Ur Leukocyte Esterase Urine WBC (Auto) Urine RBC (Auto) U Hyaline Cast (Auto) U Epithel Cells (Auto) Urine Bacteria (Auto) SARS-CoV-2, RNA, NAAT NEGATIVE 09/13/22 09/13/22 09/13/22 07:50 07:50 07:50 WBC RBC Hgb Hct MCV MCH MCHC RDW Std Deviation RDW Coeff of Omid Plt Count MPV Immature Gran % (Auto) Neut % (Auto) Lymph % (Auto) [place] % (Auto) Eos % (Auto) Baso % (Auto) Neut # (Auto) Lymph # (Auto) [place] # (Auto) Eos # (Auto) Baso # (Auto) Immature Gran # (Auto) Absolute Nucleated RBC Nucleated RBC % (auto) PT 26.2 H INR 2.6 H APTT PTT Ratio VBG pH VBG pCO2 VBG pO2 VBG HCO3 VBG O2 Saturation VBG Base Excess Methemoglobin Sodium 143 Potassium 4.1 Chloride 95 L Carbon Dioxide 43 H* Anion Gap 5 BUN 66 H Creatinine 1.92 H Est Cr Clr Drug Dosing 21.9 Est GFR ( Amer) 27.6 Est GFR (Non-Af Amer) 23.8 BUN/Creatinine Ratio 34.4 H Glucose 94 POC Glucose Lactate Calcium 9.3 Magnesium 1.8 Total Bilirubin Direct Bilirubin AST ALT Alkaline Phosphatase Troponin I High Sens 253.3 H* D B-Natriuretic Peptide Total Protein Albumin Procalcitonin Urine Color Urine Appearance Urine pH Ur Specific [place] Urine Protein Urine Glucose (UA) Urine Ketones Urine Blood Urine Nitrite Urine Bilirubin Urine Urobilinogen Ur Leukocyte Esterase Urine WBC (Auto) Urine RBC (Auto) U Hyaline Cast (Auto) U Epithel Cells (Auto) Urine Bacteria (Auto) SARS-CoV-2, RNA, NAAT Medications Administered Current Inpatient Medications Acetaminophen (Acetaminophen 325 Mg Tab) 650 mg PO Q4H PRN PRN Reason: Pain or Fever Stop: 10/13/22 03:09 Ascorbic Acid (Ascorbic Acid 500 Mg Tab) [address] [facility] Stop: 10/13/22 08:59 Last Admin: 09/13/22 07:52 Dose: 250 mg Atorvastatin Calcium (Atorvastatin 40 Mg Tab) [facility] Stop: 10/13/22 08:59 Last Admin: 09/13/22 07:52 Dose: 80 mg Clopidogrel Bisulfate (Clopidogrel Bisulfate 75 Mg Tab) 75 mg PO QAM [facility] Stop: 10/13/22 08:59 Last Admin: 09/13/22 07:52 Dose: 75 mg Dextrose (Dextrose 50% 50 Ml Syringe) 25 - 50 ml IV UD PRN; Protocol PRN Reason: Hypoglycemia Protocol Stop: 10/13/22 03:09 Ferrous Sulfate (Ferrous Sulfate 325 Mg Tab) 325 mg PO QAM [facility] Stop: 10/13/22 08:59 Last Admin: 09/13/22 07:52 Dose: 325 mg Fluticasone Propionate (Fluticasone Propionate Na Spr 16 Gm Btl) 2 sprays JAQUELIN DAILY [facility] Stop: 10/13/22 08:59 Last Admin: 09/13/22 07:53 Dose: 2 sprays Furosemide (Furosemide 40 Mg/4 Ml Vial) 40 mg IV Q12H [facility] Stop: 10/13/22 05:59 Last Admin: 09/13/22 06:53 Dose: 40 mg Gabapentin (Gabapentin 300 Mg Cap) 600 mg PO [facility] Stop: 10/13/22 03:09 Last Admin: 09/13/22 04:44 Dose: Not Given Glucagon (Glucagon For Inj 1 Mg Vial) 1 mg SQ UD PRN; Protocol PRN Reason: Hypoglycemia Protocol Stop: 10/13/22 03:09 Glucose (Glucose 40% Gel 15 Gm Tube) 15 - 30 gm PO UD PRN; Protocol PRN Reason: Hypoglycemia Protocol Stop: 10/13/22 03:09 Glucose (Glucose 10 Tab/Tube) 4 - 8 tab PO UD PRN; Protocol PRN Reason: Hypoglycemia Treatment Stop: 10/13/22 03:09 Insulin Aspart (Insulin Aspart Per Unit) 0 units SC Q6 [facility] Stop: 10/13/22 03:09 Last Admin: 09/13/22 06:53 Dose: Not Given Isosorbide Mononitrate (Isosorbide [place] Extended Rel 60 Mg Tabcr) 120 [facility] Stop: 10/13/22 08:59 Last Admin: 09/13/22 07:52 Dose: 120 mg Latanoprost (Latanoprost 0.005% Op Soln 2.5 Ml Btl) 1 drops OPB HS [facility] Stop: 10/13/22 03:09 Last Admin: 09/13/22 04:44 Dose: Not Given Levothyroxine Sodium (Levothyroxine Sodium 25 Mcg Tablet) 25 mcg PO DAILYBB [facility] Stop: 10/13/22 06:29 Last Admin: 09/13/22 07:52 Dose: 25 mcg Magnesium Oxide (Magnesium Oxide 400 Mg Tab) 400 mg PO AMHS [facility] Stop: 10/13/22 05:59 Last Admin: 09/13/22 08:01 Dose: 400 mg Metoprolol Succinate (Metoprolol Succ 50mg Ext Rel Tab) 100 mg PO [facility] Stop: 10/13/22 03:09 Last Admin: 09/13/22 04:45 Dose: Not Given Metoprolol Succinate (Metoprolol Succ 50mg Ext Rel Tab) 150 [facility] Stop: 10/13/22 08:59 Last Admin: 09/13/22 07:53 Dose: 150 mg Miscellaneous (Carbohydrates For Hypoglycemia ) 15 - 30 gm PO UD PRN PRN Reason: Hypoglycemia Protocol Stop: 10/13/22 03:09 Miscellaneous (Netarsudil [Rhopressa] - Order Awaiting Action) 1 each N/A QS [facility] Stop: 10/13/22 07:59 Last Admin: 09/13/22 07:17 Dose: Not Given Miscellaneous (Remove Nitro-Dur Patch) 1 each N/A DAILY@2100 [facility] Stop: 10/13/22 20:59 Nitroglycerin (Nitroglycerin 0.2 Mg/Hr Patch) [address] [facility] Stop: 10/13/22 08:59 Last Admin: 09/13/22 07:54 Dose: 1 patch Pantoprazole Sodium (Pantoprazole 40 Mg Tab) [address] [facility] Stop: 10/13/22 08:59 Last Admin: 09/13/22 07:53 Dose: 40 mg Ropinirole HCl (Ropinirole Hcl 0.25 Mg Tablet) 0.25 mg PO [facility] Stop: 10/13/22 03:09 Last Admin: 09/13/22 04:45 Dose: Not Given (1) Pulmonary edema Chronicity: acute Qualified Code(s): J81.0 - Acute pulmonary edema
[2022-09-13 08:41] LABS: BUN Creatinine Ratio 34.4 (10-20); Calcium 9.3 mg/dl (8.5-10.1); Creatinine Clr Calc Pharmacy 21.9 ml/min; Est GFR (African American) 27.6 ml/min; Est GFR (Non-African American) 23.8 ml/min; Magnesium 1.8 mg/dl (1.7-2.4); Potassium 4.1 mmol/L (3.5-5.1)
[2022-09-13] MEDS: cefTRIAXone SODIUM 1,000 MG in DEXTROSE 5% AD-VAN 50 ML IV SCH (12:11)
--- NOTE | 2022-09-13 13:24 | Hospitalist Progress Note ---
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 Found to by hypoxic on presentation with a pulseox in the 70s, has responded to supplemental O2. Clinical picture c/w acute decompensation of chronic HFrEF with resultant hypoxia. Also noted to have an MARY, likely related to more aggressive diuretic regimen outpatient. Troponin noted to be elevated, likely due to demand ischemic from known CAD with class 4 angina, worsened by hypoxia, and current MARY. 09/13 negative 500cc fluid balance so far repeat CXR: similar to yesterday 1. Cardiomegaly with unchanged pulmonary edema. 2. Stable left greater than right pleural effusions and mild bibasilar consolidation. Chest US: Limited exam secondary to lack of patient cooperation. Bilateral pleural effusions are redemonstrated. The right pleural effusion demonstrates a volume of approximately 174 mL. The left pleural effusion demonstrates a volume of approximately 279 mL. Echo: EF 35-40%, grade 3 Diastolic Dysfunction, otherwise unchanged compared to 06/2022 remains on 2 L nasal cannula crea 2.0 --> 1.9 continue Lasix 40mg IV BID Nephro and Plate Grinder on board (2) Hypoxia: Plan: secondary to above wean off oxygen accordingly (3) MARY (acute kidney injury): Plan: cardiorenal syndrome? Sales Promoter consulted management per above (4) Acute hyperkalemia: Plan: 5.2 --> 4.1 (5) Chronic anticoagulation: Plan: INR 2.6 resume coumadin (6) Angina pectoris: Plan: medically managed inoperable CAD lesions per last Cardiac cath continue usual NitroDur patch, Imdur, Metoprolol management per Cardiology service (7) ASCVD (arteriosclerotic cardiovascular disease): (8) Diabetes mellitus, type 2: Plan: Holding outpatient regimen. A1c 11/16/22 was 8.3 - Sliding scale insulin - Diabetic diet, BSG ACHS (9) Diabetic neuropathy: Plan: Continue gabapentin (10) GERD (gastroesophageal reflux disease): Plan: Continue PPI therapy (11) Hyperlipidemia: Plan: Continue statin (12) Hypertension: (13) Glaucoma: Plan Code Status: Full Code DVT Prophylaxis: on chronic warfarin Disposition patient's daughter prefers patient to transition to SNF Admission and Anticipated Discharge Date Admission Date: September 12, 2022 Subjective ff up for acute on chronic systolic CHF exacerbation, etc seen resting in bed, comfortable on [address] states she feels better today compared to yesterday no chest pain, dyspnea, palpitations, dizziness no cough, fever/chills no other symptoms Review of Systems Review of Systems: all noted and negative except for above Physical Exam Physical Exam: General- oriented x 3, not in distress, speaks in sentences with no effort or accessory muscle use Eyes- anicteric Neck- no JVD Lungs- mild rales at the bases Heart- normal rate, regular rhythm; no murmurs Abdomen- normal bowel sounds, nondistended, soft, nontender Extremities- mild pretibial edema, no calf tenderness Neuro- alert, oriented x 3; no gross focal neurologic deficits Skin- warm & dry Results & Data Results & Data ([facility]) Vital Signs (Past 12 Hours) Vital Signs Temp Pulse Pulse Resp BP BP Pulse Ox 09/13/22 12:25 36.4 C L 78 16 101/44 L 96 09/13/22 08:38 09/13/22 08:00 09/13/22 07:54 36.7 C 74 18 124/59 L 98 09/13/22 04:26 09/13/22 03:10 36.6 C 75 18 136/72 95 09/13/22 03:10 09/13/22 03:40 09/13/22 03:36 36.5 C 76 16 102/80 98 09/13/22 02:30 68 14 98 09/13/22 02:30 108/47 L 09/13/22 02:20 68 15 99 09/13/22 02:10 69 18 99 09/13/22 02:00 70 17 98 09/13/22 02:00 129/64 09/13/22 01:50 70 21 99 09/13/22 01:40 69 13 100 09/13/22 01:30 69 12 99 09/13/22 01:30 103/55 L 09/13/22 01:20 69 13 99 09/13/22 02:36 Pulse Ox O2 Del Method O2 Del Method O2 Flow Rate O2 Flow Rate 09/13/22 12:25 Nasal Cannula 2 09/13/22 08:38 Nasal Cannula 2 09/13/22 08:00 98 Nasal Cannula 2 09/13/22 07:54 Nasal Cannula 2 09/13/22 04:26 Nasal Cannula 2 09/13/22 03:10 Nasal Cannula 4 09/13/22 03:10 94 09/13/22 03:40 Nasal Cannula 3 09/13/22 03:36 Nasal Cannula 2 09/13/22 02:30 09/13/22 02:30 09/13/22 02:20 09/13/22 02:10 09/13/22 02:00 09/13/22 02:00 09/13/22 01:50 09/13/22 01:40 09/13/22 01:30 09/13/22 01:30 09/13/22 01:20 09/13/22 02:36 Room Air all noted and reviewed including below
[2022-09-13] MEDS: WARFARIN SOD 5 MG TAB PO SCH (16:35)
[2022-09-13] MEDS: MELATONIN 3 MG TAB PO PRN (22:15)
[2022-09-14] MEDS: FUROSEMIDE 40 MG/4 ML VIAL IV SCH (05:58)
[2022-09-14] MEDS: LEVOTHYROXINE SODIUM 25 MCG TABLET PO SCH (05:58)
[2022-09-14] MEDS: METOPROLOL SUCC 50MG EXT REL TAB PO SCH ×2 (07:52→21:36)
[2022-09-14] MEDS: ASCORBIC ACID 500 MG TAB PO SCH (07:52)
[2022-09-14] MEDS: ATORVASTATIN 40 MG TAB PO SCH (07:52)
[2022-09-14] MEDS: CLOPIDOGREL BISULFATE 75 MG TAB PO SCH (07:52)
[2022-09-14] MEDS: FERROUS SULFATE 325 MG TAB PO SCH (07:52)
[2022-09-14] MEDS: PANTOprazole 40 MG TAB PO SCH (07:52)
[2022-09-14] MEDS: ISOSORBIDE MONO EXTENDED REL 60 MG TABCR PO SCH (07:53)
[2022-09-14] MEDS: NITROGLYCERIN 0.2 MG/HR PATCH TD SCH (08:02)
[2022-09-14] MEDS: FLUTICASONE PROPIONATE NA SPR 16 GM BTL NAE SCH (08:03)
[2022-09-14 08:14] LABS: INR 3.1 (0.9-1.1); Prothrombin Time 31.1 Seconds (9.0-12.0)
[2022-09-14] MEDS: INSULIN ASPART PER UNIT SC SCH ×4 (08:34→22:16)
[2022-09-14 08:42] LABS: BUN Creatinine Ratio 31.5 (10-20); Calcium 9.1 mg/dl (8.5-10.1); Creatinine Clr Calc Pharmacy 23.7 ml/min; Est GFR (African American) 30.3 ml/min; Est GFR (Non-African American) 26.1 ml/min; Magnesium 1.8 mg/dl (1.7-2.4); Potassium 3.9 mmol/L (3.5-5.1)
[2022-09-14] MEDS: MAGNESIUM OXIDE 400 MG TAB PO SCH ×2 (09:06→21:38)
--- NOTE | 2022-09-14 09:15 | Hospitalist Progress Note ---
Date of Service September 14, 2022 Assessment & Plan (1) Acute on chronic combined systolic and diastolic heart failure: Plan: 82 y/o female with complex PMH including acute on chronic HFrEF with diastolic dysfunction, CAD w/ class 3-4 angina, PAF, tachy-tanner syndrome s/p PPM placement, aortic stenosis s/p TAVR, chronic AC, mitral stenosis, pulmonary HTN, DM2 with neuropathy, carotid stenosis s/o bilateral carotid endarterectomies, PVD, HTN, hypothyroidism, hyperlipidemia, GERD, chronic laryngospasm, RLS, glaucoma, and depression who presented today with progressive weakness and worsening respiratory status. Found to by hypoxic on presentation with a pulseox in the 70s, has responded to supplemental O2. Clinical picture c/w acute decompensation of chronic HFrEF with resultant hypoxia. Also noted to have an MARY, likely related to more aggressive diuretic regimen outpatient. Troponin noted to be elevated, likely due to demand ischemic from known CAD with class 4 angina, worsened by hypoxia, and current MARY., and UTI. repeat CXR: similar to previous 1. Cardiomegaly with unchanged pulmonary edema. 2. Stable left greater than right pleural effusions and mild bibasilar consolidation. Chest US: Limited exam secondary to lack of patient cooperation. Bilateral pleural effusions are redemonstrated. The right pleural effusion demonstrates a volume of approximately 174 mL. The left pleural effusion demonstrates a volume of approximately 279 mL. Echo: EF 35-40%, grade 3 Diastolic Dysfunction, otherwise unchanged compared to 06/2022 remains on 1-2 L nasal cannula crea 2.0 --> 1.8 Switch from Lasix 40mg IV BID -> PO lasix (09/14/22) Nephrology and Cardiology following UTI urine culture: E.coli, pansensitive empiric Ceftriaxone 1g IV daily (2) Hypoxia: Plan: secondary to above wean off oxygen accordingly (3) MARY (acute kidney injury): Plan: cardiorenal syndrome? Utility Locate Technician consulted management per above (4) Acute hyperkalemia: Plan: 5.2 --> 4.1, now 3.9 (5) Chronic anticoagulation: Plan: INR 2.6 resumed coumadin (6) Angina pectoris: Plan: medically managed inoperable CAD lesions per last Cardiac cath continue usual NitroDur patch, Imdur, Metoprolol management per Cardiology service (7) ASCVD (arteriosclerotic cardiovascular disease): (8) Diabetes mellitus, type 2: Plan: Holding outpatient regimen. A1c 07/13/22 was 8.3% - Sliding scale insulin - Diabetic diet, BSG ACHS (9) Diabetic neuropathy: Plan: Continue gabapentin (10) GERD (gastroesophageal reflux disease): Plan: Continue PPI therapy (11) Hyperlipidemia: Plan: Continue statin (12) Hypertension: (13) Glaucoma: Plan Code Status: Full Code DVT Prophylaxis: on chronic warfarin Disposition patient's daughter prefers patient to transition to SNF Admission and Anticipated Discharge Date Admission Date: September 12, 2022 Subjective Pt seen in follow up for acute on chronic systolic CHF exacerbation, MARY, UTI seen resting in bed, comfortable on 1-2 L NC states she feels better overall no chest pain, dyspnea, palpitations, dizziness no cough, fever/chills no other symptoms Family present at the bedside Cardiology and nephrology following. Review of Systems Review of Systems: All systems reviewed & are unremarkable except as noted in Subjective Physical Exam Physical Exam: General- oriented x 3, not in distress, speaks in sentences with no effort or accessory muscle use Eyes- anicteric Neck- no JVD Lungs- mild rales at the bases Heart- normal rate, regular rhythm; no murmurs Abdomen- normal bowel sounds, nondistended, soft, nontender Extremities- mild pretibial edema, no calf tenderness Neuro- alert, oriented x 3; no gross focal neurologic deficits Skin- warm & dry Results & Data Results & Data ([facility]) Vital Signs (Past 12 Hours) Vital Signs Temp Pulse Pulse Resp BP Pulse Ox Pulse Ox 09/14/22 08:04 104/56 L 09/14/22 07:10 36.8 C 77 15 89/50 L 96 09/14/22 05:32 76 09/14/22 02:46 36.8 C 75 18 96/54 L 98 09/14/22 00:00 96 09/13/22 23:17 36.9 C 78 16 115/57 L 97 O2 Del Method O2 Del Method O2 Flow Rate O2 Flow Rate 09/14/22 08:04 09/14/22 07:10 Nasal Cannula 1 09/14/22 05:32 09/14/22 02:46 Nasal Cannula 09/14/22 00:00 Nasal Cannula 2 09/13/22 23:17 Nasal Cannula Laboratory Results 0109/14/22 09/14/22 Range/Units 07:36 07:36 07:35 PT 31.1 H (9.0-12.0) Seconds INR 3.1 H (0.9-1.1) Sodium 143 (136-145) mmol/L Potassium 3.9 (3.5-5.1) mmol/L Chloride 95 L (98-107) mmol/L Carbon Dioxide 42 H* (21-32) mmol/L Anion Gap 6 (3-11) BUN 56 H (6-23) mg/dl Creatinine 1.78 H (0.6-1.2) mg/dl Est Cr Clr Drug Dosing 23.7 ml/min Est GFR ( Amer) 30.3 ml/min Est GFR (Non-Af Amer) 26.1 ml/min BUN/Creatinine Ratio 31.5 H (10-20) Glucose 132 H (70-99(Fasting)) mg/dl POC Glucose 153 H (70-99) mg/dl Calcium 9.1 (8.5-10.1) mg/dl Magnesium 1.8 (1.7-2.4) mg/dl 09/13/22 09/13/22 09/13/22 Range/Units 20:09 16:24 11:20 PT (9.0-12.0) Seconds INR (0.9-1.1) Sodium (136-145) mmol/L Potassium (3.5-5.1) mmol/L Chloride (98-107) mmol/L Carbon Dioxide (21-32) mmol/L Anion Gap (3-11) BUN (6-23) mg/dl Creatinine (0.6-1.2) mg/dl Est Cr Clr Drug Dosing ml/min Est GFR ( Amer) ml/min Est GFR (Non-Af Amer) ml/min BUN/Creatinine Ratio (10-20) Glucose (70-99(Fasting)) mg/dl POC Glucose 186 H 115 H 79 (70-99) mg/dl Calcium (8.5-10.1) mg/dl Magnesium (1.7-2.4) mg/dl Medications Administered Current Inpatient Medications Acetaminophen (Acetaminophen 325 Mg Tab) 650 mg PO Q4H PRN PRN Reason: Pain or Fever Stop: 10/13/22 03:09 Ascorbic Acid (Ascorbic Acid 500 Mg Tab) 250 mg PO QAM [facility] Stop: 10/13/22 08:59 Last Admin: 09/14/22 07:52 Dose: 250 mg Atorvastatin Calcium (Atorvastatin 40 Mg Tab) 80 mg PO QAM [facility] Stop: 10/13/22 08:59 Last Admin: 09/14/22 07:52 Dose: 80 mg Clopidogrel Bisulfate (Clopidogrel Bisulfate 75 Mg Tab) 75 mg PO QAM [facility] Stop: 10/13/22 08:59 Last Admin: 09/14/22 07:52 Dose: 75 mg Dextrose (Dextrose 50% 50 Ml Syringe) 25 - 50 ml IV UD PRN; Protocol PRN Reason: Hypoglycemia Protocol Stop: 10/13/22 03:09 Ferrous Sulfate (Ferrous Sulfate 325 Mg Tab) 325 mg PO [facility] Stop: 10/13/22 08:59 Last Admin: 09/14/22 07:52 Dose: 325 mg Fluticasone Propionate (Fluticasone Propionate Na Spr 16 Gm Btl) 2 sprays JAQUELIN DAILY [facility] Stop: 10/13/22 08:59 Last Admin: 09/14/22 08:03 Dose: 2 sprays Furosemide (Furosemide 40 Mg/4 Ml Vial) 40 mg IV Q12H [facility] Stop: 10/13/22 05:59 Last Admin: 09/14/22 05:58 Dose: 40 mg Gabapentin (Gabapentin 300 Mg Cap) 600 mg PO HS [facility] Stop: 10/13/22 03:09 Last Admin: 09/13/22 20:48 Dose: 600 mg Glucagon (Glucagon For Inj 1 Mg Vial) 1 mg SQ UD PRN; Protocol PRN Reason: Hypoglycemia Protocol Stop: 10/13/22 03:09 Glucose (Glucose 40% Gel 15 Gm Tube) 15 - 30 gm PO UD PRN; Protocol PRN Reason: Hypoglycemia Protocol Stop: 10/13/22 03:09 Glucose (Glucose 10 Tab/Tube) 4 - 8 tab PO UD PRN; Protocol PRN Reason: Hypoglycemia Treatment Stop: 10/13/22 03:09 Ceftriaxone Sodium 1,000 mg/ (Dextrose) 50 mls @ 100 mls/hr IV Q24H [facility]; Protocol Stop: 09/20/22 11:29 Last Infusion: 09/13/22 13:09 Dose: Infused Insulin Aspart (Insulin Aspart Per Unit) 0 units SC [facility] Stop: 10/13/22 11:29 Last Admin: 09/14/22 08:34 Dose: 3 units Isosorbide Mononitrate (Isosorbide [place] Extended Rel 60 Mg Tabcr) 120 mg PO QAM [facility] Stop: 10/13/22 08:59 Last Admin: 09/14/22 07:53 Dose: 120 mg Latanoprost (Latanoprost 0.005% Op Soln 2.5 Ml Btl) 1 drops OPB HS [facility] Stop: 10/13/22 03:09 Last Admin: 09/13/22 20:49 Dose: 1 drops Levothyroxine Sodium (Levothyroxine Sodium 25 Mcg Tablet) 25 mcg PO DAILYBB [facility] Stop: 10/13/22 06:29 Last Admin: 09/14/22 05:58 Dose: 25 mcg Magnesium Oxide (Magnesium Oxide 400 Mg Tab) 400 mg PO AMHS [facility] Stop: 10/13/22 05:59 Last Admin: 09/14/22 09:06 Dose: 400 mg Melatonin (Melatonin 3 Mg Tab) 3 mg PO HS PRN PRN Reason: Sleep Stop: 10/13/22 21:59 Last Admin: 09/13/22 22:15 Dose: 3 mg Metoprolol Succinate (Metoprolol Succ 50mg Ext Rel Tab) 100 mg PO HS [facility] Stop: 10/13/22 03:09 Last Admin: 09/13/22 20:49 Dose: Not Given Metoprolol Succinate (Metoprolol Succ 50mg Ext Rel Tab) [facility] Stop: 10/13/22 08:59 Last Admin: 09/14/22 07:52 Dose: 150 mg Miscellaneous (Carbohydrates For Hypoglycemia ) 15 - 30 gm PO UD PRN PRN Reason: Hypoglycemia Protocol Stop: 10/13/22 03:09 Miscellaneous (Netarsudil [Rhopressa] - Order Awaiting Action) 1 each N/A QS [facility] Stop: 10/13/22 07:59 Last Admin: 09/14/22 07:25 Dose: Not Given Miscellaneous (Remove Nitro-Dur Patch) 1 each N/A DAILY@2100 [facility] Stop: 10/13/22 20:59 Last Admin: 09/13/22 20:49 Dose: 1 each Nitroglycerin (Nitroglycerin 0.2 Mg/Hr Patch) 1 patch TD QAM [facility] Stop: 10/13/22 08:59 Last Admin: 09/14/22 08:02 Dose: 1 patch Pantoprazole Sodium (Pantoprazole 40 Mg Tab) 40 mg PO QAM [facility] Stop: 10/13/22 08:59 Last Admin: 09/14/22 07:52 Dose: 40 mg Ropinirole HCl (Ropinirole Hcl 0.25 Mg Tablet) 0.25 mg PO HS [facility] Stop: 10/13/22 03:09 Last Admin: 09/13/22 20:48 Dose: 0.25 mg Warfarin Sodium (Warfarin Sod 5 Mg Tab) 5 mg PO DAILY@1600 [facility] Stop: 10/13/22 15:59 Last Admin: 09/13/22 16:35 Dose: 5 mg
--- NOTE | 2022-09-14 10:35 | Cardiology Progress Note ---
Date of Service September 14, 2022 Assessment & Plan (1) Acute on chronic combined systolic and diastolic heart failure: (2) Hypoxia: (3) Pulmonary edema: (4) Troponin level elevated: (5) CKD (chronic kidney disease): Plan They have the patient is no longer in heart failure and I believe she is euvolemic. I think we can back down on her diuretic for now. She has a metabolic alkalosis. I let the use of Diamox up to nephrology. Admission and Anticipated Discharge Date Admission Date: September 12, 2022 Subjective The patient is comfortable and had an uneventful night. Review of Systems Review of Systems: Review of Systems: See HPI for pertinent positives. All other 10 point review of systems are negative. Physical Exam Physical Exam: General: no acute distress and stated age Head: normocephalic, no masses, lesions, tenderness or abnormalities Eyes: conjunctiva are pink and non-injected, sclera clear Neck: supple, no adenopathy, no bruits, normal jugular venous pulse, no hepatojugular reflux Chest: normal shape and normal respiratory effort Lungs: clear to auscultation and percussion Cardiac Exam: - regular rate & rhythm, no murmurs gallops or rubs - normal S1, normal S2 Pulses: 2(+) throughout Abdomen: abdomen soft, non-tender, no abnormal masses and no hepatosplenomegaly Musculoskeletal: no gait disturbance, no joint inflammation, no deforming arthritis Extremities: no edema and no cyanosis Neuro: grossly normal exam Results & Data ([facility]) Vital Signs (Past 12 Hours) Vital Signs Temp Pulse Pulse Resp BP Pulse Ox Pulse Ox 09/14/22 08:00 80 09/14/22 08:00 09/14/22 08:04 104/56 L 09/14/22 07:10 36.8 C 77 15 89/50 L 96 09/14/22 05:32 76 09/14/22 02:46 36.8 C 75 18 96/54 L 98 09/14/22 00:00 96 09/13/22 23:17 36.9 C 78 16 115/57 L 97 O2 Del Method O2 Del Method O2 Flow Rate O2 Flow Rate 09/14/22 08:00 09/14/22 08:00 Nasal Cannula 2 09/14/22 08:04 09/14/22 07:10 Nasal Cannula 1 09/14/22 05:32 09/14/22 02:46 Nasal Cannula 09/14/22 00:00 Nasal Cannula 2 09/13/22 23:17 Nasal Cannula Laboratory Results Laboratory Results - last 24 hr 09/13/22 09/13/22 09/13/22 11:20 16:24 20:09 PT INR Sodium Potassium Chloride Carbon Dioxide Anion Gap BUN Creatinine Est Cr Clr Drug Dosing Est GFR ( Amer) Est GFR (Non-Af Amer) BUN/Creatinine Ratio Glucose POC Glucose 79 115 H 186 H Calcium Magnesium 09/14/22 09/14/22 09/14/22 07:35 07:36 07:36 PT 31.1 H INR 3.1 H Sodium 143 Potassium 3.9 Chloride 95 L Carbon Dioxide 42 H* Anion Gap 6 BUN 56 H Creatinine 1.78 H Est Cr Clr Drug Dosing 23.7 Est GFR ( Amer) 30.3 Est GFR (Non-Af Amer) 26.1 BUN/Creatinine Ratio 31.5 H Glucose 132 H POC Glucose 153 H Calcium 9.1 Magnesium 1.8 Medications Administered Current Inpatient Medications Acetaminophen (Acetaminophen 325 Mg Tab) 650 mg PO Q4H PRN PRN Reason: Pain or Fever Stop: 10/13/22 03:09 Ascorbic Acid (Ascorbic Acid 500 Mg Tab) [facility] Stop: 10/13/22 08:59 Last Admin: 09/14/22 07:52 Dose: 250 mg Atorvastatin Calcium (Atorvastatin 40 Mg Tab) 80 mg PO QAM [facility] Stop: 10/13/22 08:59 Last Admin: 09/14/22 07:52 Dose: 80 mg Clopidogrel Bisulfate (Clopidogrel Bisulfate 75 Mg Tab) 75 mg PO QAM [facility] Stop: 10/13/22 08:59 Last Admin: 09/14/22 07:52 Dose: 75 mg Dextrose (Dextrose 50% 50 Ml Syringe) 25 - 50 ml IV UD PRN; Protocol PRN Reason: Hypoglycemia Protocol Stop: 10/13/22 03:09 Ferrous Sulfate (Ferrous Sulfate 325 Mg Tab) [facility] [place] Stop: 10/13/22 08:59 Last Admin: 09/14/22 07:52 Dose: 325 mg Fluticasone Propionate (Fluticasone Propionate Na Spr 16 Gm Btl) 2 sprays JAQUELIN DAILY [facility] Stop: 10/13/22 08:59 Last Admin: 09/14/22 08:03 Dose: 2 sprays Furosemide (Furosemide 40 Mg/4 Ml Vial) 40 mg IV Q12H [facility] Stop: 10/13/22 05:59 Last Admin: 09/14/22 05:58 Dose: 40 mg Gabapentin (Gabapentin 300 Mg Cap) 600 mg PO HS [facility] Stop: 10/13/22 03:09 Last Admin: 09/13/22 20:48 Dose: 600 mg Glucagon (Glucagon For Inj 1 Mg Vial) 1 mg SQ UD PRN; Protocol PRN Reason: Hypoglycemia Protocol Stop: 10/13/22 03:09 Glucose (Glucose 40% Gel 15 Gm Tube) 15 - 30 gm PO UD PRN; Protocol PRN Reason: Hypoglycemia Protocol Stop: 10/13/22 03:09 Glucose (Glucose 10 Tab/Tube) 4 - 8 tab PO UD PRN; Protocol PRN Reason: Hypoglycemia Treatment Stop: 10/13/22 03:09 Ceftriaxone Sodium 1,000 mg/ (Dextrose) 50 mls @ 100 mls/hr IV Q24H [facility]; Protocol Stop: 09/20/22 11:29 Last Infusion: 09/13/22 13:09 Dose: Infused Insulin Aspart (Insulin Aspart Per Unit) 0 units SC ACHS [facility] Stop: 10/13/22 11:29 Last Admin: 09/14/22 08:34 Dose: 3 units Isosorbide Mononitrate (Isosorbide [place] Extended Rel 60 Mg Tabcr) 120 mg PO QAM [facility] Stop: 10/13/22 08:59 Last Admin: 09/14/22 07:53 Dose: 120 mg Latanoprost (Latanoprost 0.005% Op Soln 2.5 Ml Btl) 1 drops OPB HS [facility] Stop: 10/13/22 03:09 Last Admin: 09/13/22 20:49 Dose: 1 drops Levothyroxine Sodium (Levothyroxine Sodium 25 Mcg Tablet) 25 mcg PO DAILYBB [facility] Stop: 10/13/22 06:29 Last Admin: 09/14/22 05:58 Dose: 25 mcg Magnesium Oxide (Magnesium Oxide 400 Mg Tab) 400 mg PO AMHS [facility] Stop: 10/13/22 05:59 Last Admin: 09/14/22 09:06 Dose: 400 mg Melatonin (Melatonin 3 Mg Tab) 3 mg PO HS PRN PRN Reason: Sleep Stop: 10/13/22 21:59 Last Admin: 09/13/22 22:15 Dose: 3 mg Metoprolol Succinate (Metoprolol Succ 50mg Ext Rel Tab) 100 mg PO [facility] Stop: 10/13/22 03:09 Last Admin: 09/13/22 20:49 Dose: Not Given Metoprolol Succinate (Metoprolol Succ 50mg Ext Rel Tab) [facility] Stop: 10/13/22 08:59 Last Admin: 09/14/22 07:52 Dose: 150 mg Miscellaneous (Carbohydrates For Hypoglycemia ) 15 - 30 gm PO UD PRN PRN Reason: Hypoglycemia Protocol Stop: 10/13/22 03:09 Miscellaneous (Netarsudil [Rhopressa] - Order Awaiting Action) 1 each N/A QS [facility] Stop: 10/13/22 07:59 Last Admin: 09/14/22 07:25 Dose: Not Given Miscellaneous (Remove Nitro-Dur Patch) 1 each N/A DAILY@2100 [facility] Stop: 10/13/22 20:59 Last Admin: 09/13/22 20:49 Dose: 1 each Nitroglycerin (Nitroglycerin 0.2 Mg/Hr Patch) 1 patch TD [facility] Stop: 10/13/22 08:59 Last Admin: 09/14/22 08:02 Dose: 1 patch Pantoprazole Sodium (Pantoprazole 40 Mg Tab) 40 mg PO [facility] Stop: 10/13/22 08:59 Last Admin: 09/14/22 07:52 Dose: 40 mg Ropinirole HCl (Ropinirole Hcl 0.25 Mg Tablet) 0.25 mg PO [facility] Stop: 10/13/22 03:09 Last Admin: 09/13/22 20:48 Dose: 0.25 mg Warfarin Sodium (Warfarin Sod 5 Mg Tab) 5 mg PO DAILY@1600 [facility] Stop: 10/13/22 15:59 Last Admin: 09/13/22 16:35 Dose: 5 mg (1) Pulmonary edema Chronicity: acute Qualified Code(s): J81.0 - Acute pulmonary edema
[2022-09-14] MEDS: cefTRIAXone SODIUM 1,000 MG in DEXTROSE 5% AD-VAN 50 ML IV SCH (11:22)
--- NOTE | 2022-09-14 12:28 | Nephrology Progress Note ---
Date of Service September 14, 2022 Assessment & Plan (1) MARY (acute kidney injury): Plan: stage 1 MARY w/ further improved creatinine this am compared to arrival > likeli est cause is ischemic ATN d/t obligate diuretics to manage heart failure; given her obligate diuretic needs which are increasing, suspect she will never again have normal renal function for long if ever adn that some of this admission will involve establishing new baseline renal function. her prior baseline in july ahd abeen 1.1-1.2 and high ones in August. -she is still overloaded but bicarb elevated > may need to consider diamoxx depending on trend >lasix lowered to 40 mg po bid now >if respiratory distress/compensation may use one time 40-60 mg iv lasix -daily bmp, mag, phos -treat UTI though not sure if this is uti versus asx bacteriuria -continue nephrotoxin avoidance Admission and Anticipated Discharge Date Admission Date: September 12, 2022 Subjective no interval events clinically except changed to po lasix today; feels weak still but a bit better. no anginal sx but states these come only w/ exertion. Review of Systems Review of Systems: All systems reviewed & are unremarkable except as noted in Subjective Physical Exam Constitutional: well developed, well nourished, + frail appearing and co operative; no acute distress Eyes: EOM intact bilaterally ENMT: Ears: no external ear abnormality Nose: no external nose abnormality Mouth: + dry oral mucous membranes Neck: no nuchal rigidity Respiratory: normal respiratory effort (at rest), + labored breathing (with exam maneuvers -- w/ rolling to one side in bed ) and able to speak in complete sentences; no cough Auscultation: + diminished lung sounds and + crackles (throughout lower posterior mello) Cardiovascular: Rate/Rhythm: regular rate and regular rhythm Extremities: + edema (1++) Gastrointestinal (Abdomen): Inspection/Auscultation: normal bowel sounds Percussion/Palpation: abdomen soft; abdomen nontender Musculoskeletal: Extremities: strength 5/5 throughout Skin: no rashes, warm and dry Neurologic: nonfocal Psychiatric: Orientation: oriented x 3 Genitourinary: ruzi w/ ample light urine Results & Data ([facility]) Vital Signs (Past 12 Hours) Vital Signs Temp Pulse Pulse Resp BP Pulse Ox O2 Del Method 09/14/22 12:15 36.9 C 79 17 105/51 L 94 Nasal Cannula 09/14/22 08:00 80 09/14/22 08:00 Nasal Cannula 09/14/22 08:04 104/56 L 09/14/22 07:10 36.8 C 77 15 89/50 L 96 Nasal Cannula 09/14/22 05:32 76 09/14/22 02:46 36.8 C 75 18 96/54 L 98 Nasal Cannula O2 Flow Rate 09/14/22 12:15 09/14/22 08:00 09/14/22 08:00 2 09/14/22 08:04 09/14/22 07:10 1 09/14/22 05:32 09/14/22 02:46 Laboratory Results 09/12/22 14:17 09/14/22 07:36
[2022-09-14] MEDS: WARFARIN SOD 5 MG TAB PO SCH (17:10)
[2022-09-14] MEDS: FUROSEMIDE 40 MG TAB PO SCH (17:11)
[2022-09-14] MEDS: MELATONIN 3 MG TAB PO PRN (21:35)
[2022-09-14] MEDS: rOPINIRole HCL 0.25 MG TABLET PO SCH (21:36)
[2022-09-14] MEDS: GABAPENTIN 300 MG CAP PO SCH (21:36)
[2022-09-14] MEDS: LATANOPROST 0.005% OP SOLN 2.5 ML BTL OPB SCH (21:37)
[2022-09-15] MEDS: ACETAMINOPHEN 325 MG TAB PO PRN ×2 (04:31→16:24)
[2022-09-15] MEDS: LEVOTHYROXINE SODIUM 25 MCG TABLET PO SCH (05:40)
--- NOTE | 2022-09-15 06:04 | Electrocardiogram Report ---
Test Reason : Blood Pressure : / mmHG Vent. Rate : 073 BPM Atrial Rate : 073 BPM P-R Int : 178 ms QRS Dur : 124 ms QT Int : 422 ms P-R-T Axes : 036 119 059 degrees QTc Int : 464 ms Atrial-sensed ventricular-paced rhythm Abnormal ECG When compared with ECG of 12-SEP-2022 14:04, Premature ventricular complexes are no longer Present Vent. rate has decreased BY 11 BPM Confirmed by Jose L Jason ([id number]) on 09/15/2022 6:03:59 AM Referred By: REFERRED SELF Confirmed By:Jose L Jason
[2022-09-15 07:24] LABS: Hematocrit (blood only) 31.5 % (34.1-44.9); Mean Corpuscular Hemoglobin 30.3 pg (25.0-34.0); Mean Corpuscular Hgb Conc 31.7 g/dL (32.0-36.0); Mean Corpuscular Volume 95.5 fL (80.0-100.0); Mean Platelet Volume 9.8 fL (9.4-12.3); Platelet Count 264 K/uL (130-400); RDW Standard Deviation 51.4 fL (36.4-46.3); White Blood Count 6.28 K/ul (4.8-10.8)
[2022-09-15 07:27] LABS: INR 2.9 (0.9-1.1); Prothrombin Time 29.5 Seconds (9.0-12.0)
[2022-09-15 07:50] LABS: Calcium 8.7 mg/dl (8.5-10.1); Magnesium 1.8 mg/dl (1.7-2.4); Potassium 3.7 mmol/L (3.5-5.1)
[2022-09-15 07:55] LABS: BUN Creatinine Ratio 28.9 (10-20); Creatinine Clr Calc Pharmacy 28.1 ml/min; Est GFR (African American) 37.5 ml/min; Est GFR (Non-African American) 32.4 ml/min; Phosphorus 4.3 mg/dl (2.5-4.9)
--- NOTE | 2022-09-15 08:24 | Nephrology Progress Note ---
Date of Service September 15, 2022 Assessment & Plan (1) MARY (acute kidney injury): Plan: stage 1 MARY w/ again further improved creatinine this am compared to arrival > ischemic ATN d/t obligate diuretics to manage heart failure; given her obligate diuretic needs which are generally/subacutely increasing, suspect she will never again have normal renal function for long and that some of this admission will involve establishing new baseline renal function. her prior baseline in july had been 1.1-1.2 and high ones in August. -she is still overloaded but bicarb elevated > may need to consider diamoxx depending on trend >lasix lowered to 40 mg po bid now > 850 mL negative yesterday; defer further diuretics to cardiology in overall context of cardiac meds >if respiratory distress/compensation may use one time 40-60 mg iv lasix -daily bmp, mag, phos -on ceftriaxone for + urine culture -continue nephrotoxin avoidance >>likely to need steroids if tihs is acute gout attack R ankle given renal function Admission and Anticipated Discharge Date Admission Date: September 12, 2022 Subjective walking w/ PT >> c/o severe R ankle pain w/ ambulation; no worsened dyspnea or chest discomfort Review of Systems Review of Systems: All systems reviewed & are unremarkable except as noted in Subjective Physical Exam Constitutional: well developed, well nourished, + frail appearing and co operative; no acute distress Eyes: EOM intact bilaterally ENMT: Ears: no external ear abnormality Nose: no external nose abnormality Mouth: + dry oral mucous membranes Neck: no nuchal rigidity Respiratory: normal respiratory effort (while sittign in chair), + labored breathing (after walking), able to speak in complete sentences and + paradoxical thoraco-abdominal movement; no cough Auscultation: + diminished lung sounds and + crackles (throughout lower posterior mello) Cardiovascular: Rate/Rhythm: regular rate and regular rhythm Extremities: + edema (trace) Gastrointestinal (Abdomen): Inspection/Auscultation: normal bowel sounds Percussion/Palpation: abdomen soft; abdomen nontender Musculoskeletal: Extremities: strength 5/5 throughout R ankle tender to palpation Skin: no rashes, warm and dry Neurologic: randall, fleunt speech, no tremor Psychiatric: Orientation: oriented x 3 Results & Data ([facility]) Vital Signs (Past 12 Hours) Vital Signs Temp Pulse Pulse Pulse Resp BP Pulse Ox 09/15/22 07:04 36.5 C 76 20 101/52 L 98 09/15/22 06:26 80 09/15/22 03:47 36.8 C 76 18 99/56 L 99 09/14/22 22:58 37.2 C 77 20 102/58 L 97 09/14/22 22:30 O2 Del Method O2 Flow Rate 09/15/22 07:04 Nasal Cannula 2 09/15/22 06:26 09/15/22 03:47 Nasal Cannula 2 09/14/22 22:58 Nasal Cannula 2 09/14/22 22:30 Nasal Cannula 2 Laboratory Results 09/15/22 06:35 09/15/22 06:35 uric acid 12.9
[2022-09-15] MEDS: ATORVASTATIN 40 MG TAB PO SCH (08:25)
[2022-09-15] MEDS: FERROUS SULFATE 325 MG TAB PO SCH (08:25)
[2022-09-15] MEDS: FLUTICASONE PROPIONATE NA SPR 16 GM BTL NAE SCH (08:25)
[2022-09-15] MEDS: ASCORBIC ACID 500 MG TAB PO SCH (08:25)
[2022-09-15] MEDS: FUROSEMIDE 40 MG TAB PO SCH ×2 (08:25→17:22)
[2022-09-15] MEDS: CLOPIDOGREL BISULFATE 75 MG TAB PO SCH (08:25)
[2022-09-15] MEDS: METOPROLOL SUCC 50MG EXT REL TAB PO SCH ×2 (08:26→20:27)
[2022-09-15] MEDS: NITROGLYCERIN 0.2 MG/HR PATCH TD SCH (08:26)
[2022-09-15] MEDS: ISOSORBIDE MONO EXTENDED REL 60 MG TABCR PO SCH (08:26)
[2022-09-15] MEDS: PANTOprazole 40 MG TAB PO SCH (08:26)
[2022-09-15] MEDS: MAGNESIUM OXIDE 400 MG TAB PO SCH ×2 (08:27→20:28)
[2022-09-15] MEDS: INSULIN ASPART PER UNIT SC SCH ×4 (08:34→20:42)
--- NOTE | 2022-09-15 09:11 | Hospitalist Progress Note ---
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 Found to by hypoxic on presentation with a pulseox in the 70s, has responded to supplemental O2. Clinical picture c/w acute decompensation of chronic HFrEF with resultant hypoxia. Also noted to have an MARY, likely related to more aggressive diuretic regimen outpatient. Troponin noted to be elevated, likely due to demand ischemic from known CAD with class 4 angina, worsened by hypoxia, and current MARY., and UTI. repeat CXR: similar to previous 1. Cardiomegaly with unchanged pulmonary edema. 2. Stable left greater than right pleural effusions and mild bibasilar consolidation. Chest US: Limited exam secondary to lack of patient cooperation. Bilateral pleural effusions are redemonstrated. The right pleural effusion demonstrates a volume of approximately 174 mL. The left pleural effusion demonstrates a volume of approximately 279 mL. Echo: EF 35-40%, grade 3 Diastolic Dysfunction, otherwise unchanged compared to 06/2022 remains on 1-2 L nasal cannula crea 2.0 --> 1.8 -> 1.5 Switched from Lasix 40mg IV BID -> PO lasix (09/14/22) Nephrology and Cardiology following UTI urine culture: E.coli, pansensitive empiric Ceftriaxone 1g IV daily Ankle pain / poss. gout flare - discussed w/ nephrology - given renal function, steroids preferred - will start prednisone (2) Hypoxia: Plan: secondary to above wean off oxygen accordingly (3) MARY (acute kidney injury): Plan: cardiorenal syndrome? Move Coordinator consulted management per above (4) Acute hyperkalemia: Plan: 5.2 --> 4.1, now 3.9 (5) Chronic anticoagulation: Plan: INR 2.9 resumed coumadin (6) Angina pectoris: Plan: medically managed inoperable CAD lesions per last Cardiac cath continue usual NitroDur patch, Imdur, Metoprolol management per Cardiology service (7) ASCVD (arteriosclerotic cardiovascular disease): (8) Diabetes mellitus, type 2: Plan: Holding outpatient regimen. A1c 07/13/22 was 8.3% - Sliding scale insulin - Diabetic diet, BSG ACHS (9) Diabetic neuropathy: Plan: Continue gabapentin (10) GERD (gastroesophageal reflux disease): Plan: Continue PPI therapy (11) Hyperlipidemia: Plan: Continue statin (12) Hypertension: (13) Glaucoma: Plan Code Status: Full Code DVT Prophylaxis: on chronic warfarin Disposition patient's daughter prefers patient to transition to SNF Admission and Anticipated Discharge Date Admission Date: September 12, 2022 Subjective Pt seen in follow up for acute on chronic systolic CHF exacerbation, MARY, UTI seen resting in chair, comfortable on suppl. O2 via NC OT in the room Pt feels better overall, has some ankle pain no chest pain, dyspnea, palpitations, dizziness while at rest no cough, fever/chills no other symptoms Currently no family present at the bedside Cardiology and nephrology following. Review of Systems Review of Systems: All systems reviewed & are unremarkable except as noted in Subjective Physical Exam Physical Exam: General- oriented x 3, not in distress, speaks in sentences with no effort or accessory muscle use Eyes- anicteric Neck- no JVD Lungs- mild rales at the bases Heart- normal rate, regular rhythm; no murmurs Abdomen- normal bowel sounds, nondistended, soft, nontender Extremities- mild pretibial edema, no calf tenderness Neuro- alert, oriented x 3; no gross focal neurologic deficits Skin- warm & dry Results & Data Results & Data ([facility]) Vital Signs (Past 12 Hours) Vital Signs Temp Pulse Pulse Pulse Resp BP Pulse Ox 09/15/22 07:04 36.5 C 76 20 101/52 L 98 09/15/22 06:26 80 09/15/22 03:47 36.8 C 76 18 99/56 L 99 09/14/22 22:58 37.2 C 77 20 102/58 L 97 09/14/22 22:30 O2 Del Method O2 Flow Rate 09/15/22 07:04 Nasal Cannula 2 09/15/22 06:26 09/15/22 03:47 Nasal Cannula 2 09/14/22 22:58 Nasal Cannula 2 09/14/22 22:30 Nasal Cannula 2 Laboratory Results 09/15/22 09/15/22 09/15/22 Range/Units 07:25 06:35 06:35 WBC 6.28 (4.8-10.8) K/ul RBC 3.30 L (3.93-5.22) M/uL Hgb 10.0 L (12.0-16.0) g/dl Hct 31.5 L (34.1-44.9) % MCV 95.5 (80.0-100.0) fL MCH 30.3 (25.0-34.0) pg MCHC 31.7 L (32.0-36.0) g/dL RDW Std Deviation 51.4 H (36.4-46.3) fL RDW Coeff of Omid 15.0 H (11.5-14.5) % Plt Count 264 (130-400) K/uL MPV 9.8 (9.4-12.3) fL PT 29.5 H (9.0-12.0) Seconds INR 2.9 H (0.9-1.1) Sodium (136-145) mmol/L Potassium (3.5-5.1) mmol/L Chloride (98-107) mmol/L Carbon Dioxide (21-32) mmol/L Anion Gap (3-11) BUN (6-23) mg/dl Creatinine (0.6-1.2) mg/dl Est Cr Clr Drug Dosing ml/min Est GFR ( Amer) ml/min Est GFR (Non-Af Amer) ml/min BUN/Creatinine Ratio (10-20) Glucose (70-99(Fasting)) mg/dl POC Glucose 141 H (70-99) mg/dl Calcium (8.5-10.1) mg/dl Phosphorus (2.5-4.9) mg/dl Magnesium (1.7-2.4) mg/dl 09/15/22 09/14/22 09/14/22 Range/Units 06:35 19:43 16:04 WBC (4.8-10.8) K/ul RBC (3.93-5.22) M/uL Hgb (12.0-16.0) g/dl Hct (34.1-44.9) % MCV (80.0-100.0) fL MCH (25.0-34.0) pg MCHC (32.0-36.0) g/dL RDW Std Deviation (36.4-46.3) fL RDW Coeff of Omid (11.5-14.5) % Plt Count (130-400) K/uL MPV (9.4-12.3) fL PT (9.0-12.0) Seconds INR (0.9-1.1) Sodium 143 (136-145) mmol/L Potassium 3.7 (3.5-5.1) mmol/L Chloride 95 L (98-107) mmol/L Carbon Dioxide 42 H* (21-32) mmol/L Anion Gap 6 (3-11) BUN 43 H (6-23) mg/dl Creatinine 1.49 H (0.6-1.2) mg/dl Est Cr Clr Drug Dosing 28.1 ml/min Est GFR ( Amer) 37.5 ml/min Est GFR (Non-Af Amer) 32.4 ml/min BUN/Creatinine Ratio 28.9 H (10-20) Glucose 137 H (70-99(Fasting)) mg/dl POC Glucose 231 H 138 H (70-99) mg/dl Calcium 8.7 (8.5-10.1) mg/dl Phosphorus 4.3 (2.5-4.9) mg/dl Magnesium 1.8 (1.7-2.4) mg/dl 09/14/22 Range/Units 11:48 WBC (4.8-10.8) K/ul RBC (3.93-5.22) M/uL Hgb (12.0-16.0) g/dl Hct (34.1-44.9) % MCV (80.0-100.0) fL MCH (25.0-34.0) pg MCHC (32.0-36.0) g/dL RDW Std Deviation (36.4-46.3) fL RDW Coeff of Omid (11.5-14.5) % Plt Count (130-400) K/uL MPV (9.4-12.3) fL PT (9.0-12.0) Seconds INR (0.9-1.1) Sodium (136-145) mmol/L Potassium (3.5-5.1) mmol/L Chloride (98-107) mmol/L Carbon Dioxide (21-32) mmol/L Anion Gap (3-11) BUN (6-23) mg/dl Creatinine (0.6-1.2) mg/dl Est Cr Clr Drug Dosing ml/min Est GFR ( Amer) ml/min Est GFR (Non-Af Amer) ml/min BUN/Creatinine Ratio (10-20) Glucose (70-99(Fasting)) mg/dl POC Glucose 164 H (70-99) mg/dl Calcium (8.5-10.1) mg/dl Phosphorus (2.5-4.9) mg/dl Magnesium (1.7-2.4) mg/dl Medications Administered Current Inpatient Medications Acetaminophen (Acetaminophen 325 Mg Tab) 650 mg PO Q4H PRN PRN Reason: Pain or Fever Stop: 10/13/22 03:09 Last Admin: 09/15/22 04:31 Dose: 650 mg Ascorbic Acid (Ascorbic Acid 500 Mg Tab) [facility] [place] Stop: 10/13/22 08:59 Last Admin: 09/15/22 08:25 Dose: 250 mg Atorvastatin Calcium (Atorvastatin 40 Mg Tab) 80 [facility] [place] Stop: 10/13/22 08:59 Last Admin: 09/15/22 08:25 Dose: 80 mg Clopidogrel Bisulfate (Clopidogrel Bisulfate 75 Mg Tab) [facility] [place] [place] Stop: 10/13/22 08:59 Last Admin: 09/15/22 08:25 Dose: 75 mg Dextrose (Dextrose 50% 50 Ml Syringe) 25 - 50 ml IV UD PRN; Protocol PRN Reason: Hypoglycemia Protocol Stop: 10/13/22 03:09 Ferrous Sulfate (Ferrous Sulfate 325 Mg Tab) 325 [facility] [place] Stop: 10/13/22 08:59 Last Admin: 09/15/22 08:25 Dose: 325 mg Fluticasone Propionate (Fluticasone Propionate Na Spr 16 Gm Btl) 2 sprays JAQUELIN DAILY [facility] Stop: 10/13/22 08:59 Last Admin: 09/15/22 08:25 Dose: 2 sprays Furosemide (Furosemide 40 Mg Tab) 40 mg PO [id number] [facility] Stop: 10/14/22 16:59 Last Admin: 09/15/22 08:25 Dose: 40 mg Gabapentin (Gabapentin 300 Mg Cap) 600 mg PO HS [facility] Stop: 10/13/22 03:09 Last Admin: 09/14/22 21:36 Dose: 600 mg Glucagon (Glucagon For Inj 1 Mg Vial) 1 mg SQ UD PRN; Protocol PRN Reason: Hypoglycemia Protocol Stop: 10/13/22 03:09 Glucose (Glucose 40% Gel 15 Gm Tube) 15 - 30 gm PO UD PRN; Protocol PRN Reason: Hypoglycemia Protocol Stop: 10/13/22 03:09 Glucose (Glucose 10 Tab/Tube) 4 - 8 tab PO UD PRN; Protocol PRN Reason: Hypoglycemia Treatment Stop: 10/13/22 03:09 Ceftriaxone Sodium 1,000 mg/ (Dextrose) 50 mls @ 100 mls/hr IV Q24H [facility]IMO; Protocol Stop: 09/20/22 11:29 Last Infusion: 09/14/22 11:55 Dose: Infused Insulin Aspart (Insulin Aspart Per Unit) 0 units SC ACHS [facility] Stop: 10/13/22 11:29 Last Admin: 09/15/22 08:34 Dose: 4 units Isosorbide Mononitrate (Isosorbide Woodruff Extended Rel 60 Mg Tabcr) 120 mg PO QAM [facility] Stop: 10/13/22 08:59 Last Admin: 09/15/22 08:26 Dose: 120 mg Latanoprost (Latanoprost 0.005% Op Soln 2.5 Ml Btl) 1 drops OPB HS [facility] Stop: 10/13/22 03:09 Last Admin: 09/14/22 21:37 Dose: 1 drops Levothyroxine Sodium (Levothyroxine Sodium 25 Mcg Tablet) 25 mcg PO DAILYBB [facility] Stop: 10/13/22 06:29 Last Admin: 09/15/22 05:40 Dose: 25 mcg Magnesium Oxide (Magnesium Oxide 400 Mg Tab) 400 mg PO AMHS [facility] Stop: 10/13/22 05:59 Last Admin: 09/15/22 08:27 Dose: 400 mg Melatonin (Melatonin 3 Mg Tab) 3 mg PO HS PRN PRN Reason: Sleep Stop: 10/13/22 21:59 Last Admin: 09/14/22 21:35 Dose: 3 mg Metoprolol Succinate (Metoprolol Succ 50mg Ext Rel Tab) 100 mg PO HS [facility] Stop: 10/13/22 03:09 Last Admin: 01/18/23 21:36 Dose: 100 mg Metoprolol Succinate (Metoprolol Succ 50mg Ext Rel Tab) 150 mg PO [facility] Stop: 10/13/22 08:59 Last Admin: 09/15/22 08:26 Dose: 150 mg Miscellaneous (Carbohydrates For Hypoglycemia ) 15 - 30 gm PO UD PRN PRN Reason: Hypoglycemia Protocol Stop: 10/13/22 03:09 Miscellaneous (Netarsudil [Rhopressa] - Order Awaiting Action) 1 each N/A QS [facility] Stop: 10/13/22 07:59 Last Admin: 09/15/22 08:20 Dose: Not Given Miscellaneous (Remove Nitro-Dur Patch) 1 each N/A DAILY@2100 [facility] Stop: 10/13/22 20:59 Last Admin: 09/14/22 21:39 Dose: 1 each Nitroglycerin (Nitroglycerin 0.2 Mg/Hr Patch) 1 patch TD [facility] Stop: 10/13/22 08:59 Last Admin: 09/15/22 08:26 Dose: 1 patch Pantoprazole Sodium (Pantoprazole 40 Mg Tab) 40 mg PO [facility] Stop: 10/13/22 08:59 Last Admin: 09/15/22 08:26 Dose: 40 mg Ropinirole HCl (Ropinirole Hcl 0.25 Mg Tablet) 0.25 mg PO [facility] Stop: 10/13/22 03:09 Last Admin: 09/14/22 21:36 Dose: 0.25 mg Warfarin Sodium (Warfarin Sod 5 Mg Tab) 5 mg PO DAILY@1600 [facility] Stop: 10/13/22 15:59 Last Admin: 09/14/22 17:10 Dose: 5 mg
--- NOTE | 2022-09-15 10:04 | Cardiology Progress Note ---
Date of Service September 15, 2022 Assessment & Plan (1) Acute on chronic combined systolic and diastolic heart failure: (2) Hypoxia: (3) Pulmonary edema: (4) Troponin level elevated: (5) CKD (chronic kidney disease): Plan Tolerating lower dose of Lasix and metabolic alkalosis is improved. Added replacement potassium. I think we can DC her Joyner and have physical therapy work with her. Admission and Anticipated Discharge Date Admission Date: September 12, 2022 Subjective The patient has no new complaints and had an uneventful night. Review of Systems Review of Systems: Review of Systems: See HPI for pertinent positives. All other 10 point review of systems are negative. Physical Exam Physical Exam: General: no acute distress and stated age Head: normocephalic, no masses, lesions, tenderness or abnormalities Eyes: conjunctiva are pink and non-injected, sclera clear Neck: supple, no adenopathy, no bruits, normal jugular venous pulse, no hepatojugular reflux Chest: normal shape and normal respiratory effort Lungs: clear to auscultation and percussion Cardiac Exam: - regular rate & rhythm, no murmurs gallops or rubs - normal S1, normal S2 Pulses: 2(+) throughout Abdomen: abdomen soft, non-tender, no abnormal masses and no hepatosplenomegaly Musculoskeletal: no gait disturbance, no joint inflammation, no deforming arthritis Extremities: no edema and no cyanosis Neuro: grossly normal exam Results & Data ([facility]) Vital Signs (Past 12 Hours) Vital Signs Temp Pulse Pulse Pulse Resp BP Pulse Ox 09/15/22 07:04 36.5 C 76 20 101/52 L 98 09/15/22 06:26 80 09/15/22 03:47 36.8 C 76 18 99/56 L 99 09/14/22 22:58 37.2 C 77 20 102/58 L 97 09/14/22 22:30 O2 Del Method O2 Flow Rate 09/15/22 07:04 Nasal Cannula 2 09/15/22 06:26 09/15/22 03:47 Nasal Cannula 2 09/14/22 22:58 Nasal Cannula 2 09/14/22 22:30 Nasal Cannula 2 Laboratory Results Laboratory Results - last 24 hr 09/14/22 09/14/22 09/14/22 11:48 16:04 19:43 WBC RBC Hgb Hct MCV MCH MCHC RDW Std Deviation RDW Coeff of Omid Plt Count MPV PT INR Sodium Potassium Chloride Carbon Dioxide Anion Gap BUN Creatinine Est Cr Clr Drug Dosing Est GFR ( Amer) Est GFR (Non-Af Amer) BUN/Creatinine Ratio Glucose POC Glucose 164 H 138 H 231 H Calcium Phosphorus Magnesium 09/15/22 09/15/22 09/15/22 06:35 06:35 06:35 WBC 6.28 RBC 3.30 L Hgb 10.0 L Hct 31.5 L MCV 95.5 MCH 30.3 MCHC 31.7 L RDW Std Deviation 51.4 H RDW Coeff of Omid 15.0 H Plt Count 264 MPV 9.8 PT 29.5 H INR 2.9 H Sodium 143 Potassium 3.7 Chloride 95 L Carbon Dioxide 42 H* Anion Gap 6 BUN 43 H Creatinine 1.49 H Est Cr Clr Drug Dosing 28.1 Est GFR ( Amer) 37.5 Est GFR (Non-Af Amer) 32.4 BUN/Creatinine Ratio 28.9 H Glucose 137 H POC Glucose Calcium 8.7 Phosphorus 4.3 Magnesium 1.8 09/15/22 07:25 WBC RBC Hgb Hct MCV MCH MCHC RDW Std Deviation RDW Coeff of Omid Plt Count MPV PT INR Sodium Potassium Chloride Carbon Dioxide Anion Gap BUN Creatinine Est Cr Clr Drug Dosing Est GFR ( Amer) Est GFR (Non-Af Amer) BUN/Creatinine Ratio Glucose POC Glucose 141 H Calcium Phosphorus Magnesium Medications Administered Current Inpatient Medications Acetaminophen (Acetaminophen 325 Mg Tab) 650 mg PO Q4H PRN PRN Reason: Pain or Fever Stop: 10/13/22 03:09 Last Admin: 09/15/22 04:31 Dose: 650 mg Ascorbic Acid (Ascorbic Acid 500 Mg Tab) [facility] Stop: 10/13/22 08:59 Last Admin: 09/15/22 08:25 Dose: 250 mg Atorvastatin Calcium (Atorvastatin 40 Mg Tab) 80 mg PO [facility] Stop: 10/13/22 08:59 Last Admin: 09/15/22 08:25 Dose: 80 mg Clopidogrel Bisulfate (Clopidogrel Bisulfate 75 Mg Tab) 75 mg PO [facility] Stop: 10/13/22 08:59 Last Admin: 09/15/22 08:25 Dose: 75 mg Dextrose (Dextrose 50% 50 Ml Syringe) 25 - 50 ml IV UD PRN; Protocol PRN Reason: Hypoglycemia Protocol Stop: 10/13/22 03:09 Ferrous Sulfate (Ferrous Sulfate 325 Mg Tab) 325 mg PO QAM [facility] Stop: 10/13/22 08:59 Last Admin: 09/15/22 08:25 Dose: 325 mg Fluticasone Propionate (Fluticasone Propionate Na Spr 16 Gm Btl) 2 sprays JAQUELIN DAILY [facility] Stop: 10/13/22 08:59 Last Admin: 09/15/22 08:25 Dose: 2 sprays Furosemide (Furosemide 40 Mg Tab) 40 mg PO [id number] [facility] Stop: 10/14/22 16:59 Last Admin: 09/15/22 08:25 Dose: 40 mg Gabapentin (Gabapentin 300 Mg Cap) 600 mg PO HS [facility] Stop: 10/13/22 03:09 Last Admin: 09/14/22 21:36 Dose: 600 mg Glucagon (Glucagon For Inj 1 Mg Vial) 1 mg SQ UD PRN; Protocol PRN Reason: Hypoglycemia Protocol Stop: 10/13/22 03:09 Glucose (Glucose 40% Gel 15 Gm Tube) 15 - 30 gm PO UD PRN; Protocol PRN Reason: Hypoglycemia Protocol Stop: 10/13/22 03:09 Glucose (Glucose 10 Tab/Tube) 4 - 8 tab PO UD PRN; Protocol PRN Reason: Hypoglycemia Treatment Stop: 10/13/22 03:09 Ceftriaxone Sodium 1,000 mg/ (Dextrose) 50 mls @ 100 mls/hr IV Q24H [facility]; Protocol Stop: 09/20/22 11:29 Last Infusion: 09/14/22 11:55 Dose: Infused Insulin Aspart (Insulin Aspart Per Unit) 0 units SC ACHS [facility] Stop: 10/13/22 11:29 Last Admin: 09/15/22 08:34 Dose: 4 units Isosorbide Mononitrate (Isosorbide [place] Extended Rel 60 Mg Tabcr) 120 mg PO QAM [facility] Stop: 10/13/22 08:59 Last Admin: 09/15/22 08:26 Dose: 120 mg Latanoprost (Latanoprost 0.005% Op Soln 2.5 Ml Btl) 1 drops OPB HS [facility] Stop: 10/13/22 03:09 Last Admin: 09/14/22 21:37 Dose: 1 drops Levothyroxine Sodium (Levothyroxine Sodium 25 Mcg Tablet) 25 mcg PO DAILYBB [facility] Stop: 10/13/22 06:29 Last Admin: 09/15/22 05:40 Dose: 25 mcg Magnesium Oxide (Magnesium Oxide 400 Mg Tab) 400 mg PO AMHS [facility] Stop: 10/13/22 05:59 Last Admin: 09/15/22 08:27 Dose: 400 mg Melatonin (Melatonin 3 Mg Tab) 3 mg PO HS PRN PRN Reason: Sleep Stop: 10/13/22 21:59 Last Admin: 09/14/22 21:35 Dose: 3 mg Metoprolol Succinate (Metoprolol Succ 50mg Ext Rel Tab) 100 mg PO HS [facility] Stop: 10/13/22 03:09 Last Admin: 09/14/22 21:36 Dose: 100 mg Metoprolol Succinate (Metoprolol Succ 50mg Ext Rel Tab) 150 mg PO QAM [facility] Stop: 10/13/22 08:59 Last Admin: 09/15/22 08:26 Dose: 150 mg Miscellaneous (Carbohydrates For Hypoglycemia ) 15 - 30 gm PO UD PRN PRN Reason: Hypoglycemia Protocol Stop: 10/13/22 03:09 Miscellaneous (Netarsudil [Rhopressa] - Order Awaiting Action) 1 each N/A QS [facility] Stop: 10/13/22 07:59 Last Admin: 09/15/22 08:20 Dose: Not Given Miscellaneous (Remove Nitro-Dur Patch) 1 each N/A DAILY@2100 [facility] Stop: 10/13/22 20:59 Last Admin: 09/14/22 21:39 Dose: 1 each Nitroglycerin (Nitroglycerin 0.2 Mg/Hr Patch) 1 patch TD [facility] Stop: 10/13/22 08:59 Last Admin: 09/15/22 08:26 Dose: 1 patch Pantoprazole Sodium (Pantoprazole 40 Mg Tab) 40 mg PO [facility] Stop: 10/13/22 08:59 Last Admin: 09/15/22 08:26 Dose: 40 mg Potassium Chloride (Potassium Chloride Crtab 20 Meq Tabcr) 20 meq PO BID [facility] Stop: 10/15/22 09:59 Ropinirole HCl (Ropinirole Hcl 0.25 Mg Tablet) 0.25 mg PO HS [facility] Stop: 10/13/22 03:09 Last Admin: 09/14/22 21:36 Dose: 0.25 mg Warfarin Sodium (Warfarin Sod 5 Mg Tab) 5 mg PO DAILY@1600 [facility] Stop: 10/13/22 15:59 Last Admin: 09/14/22 17:10 Dose: 5 mg (1) Pulmonary edema Chronicity: acute Qualified Code(s): J81.0 - Acute pulmonary edema
[2022-09-15] MEDS: POTASSIUM CHLORIDE CRTAB 20 MEQ TABCR PO SCH ×2 (10:40→20:27)
[2022-09-15] MEDS ORDERED: predniSONE 20 MG TAB PO STA (12:29)
[2022-09-15] MEDS: cefTRIAXone SODIUM 1,000 MG in DEXTROSE 5% AD-VAN 50 ML IV SCH (12:35)
[2022-09-15] MEDS: SENNA 8.6 MG TAB PO SCH (13:19)
[2022-09-15] MEDS: WARFARIN SOD 5 MG TAB PO SCH (17:22)
[2022-09-15] MEDS: MELATONIN 3 MG TAB PO PRN (20:27)
[2022-09-15] MEDS: GABAPENTIN 300 MG CAP PO SCH (20:27)
[2022-09-15] MEDS: NETARSUDIL MESYLATE 37 DROPS/2.5 ML BTL OPB SCH (20:28)
[2022-09-15] MEDS: rOPINIRole HCL 0.25 MG TABLET PO SCH (20:28)
[2022-09-15] MEDS: LATANOPROST 0.005% OP SOLN 2.5 ML BTL OPB SCH (20:28)
[2022-09-16] MEDS: LEVOTHYROXINE SODIUM 25 MCG TABLET PO SCH (06:39)
[2022-09-16 07:26] LABS: Hematocrit (blood only) 33.5 % (34.1-44.9); Hemoglobin 10.3 g/dl (12.0-16.0); Mean Corpuscular Hemoglobin 29.9 pg (25.0-34.0); Mean Corpuscular Hgb Conc 30.7 g/dL (32.0-36.0); Mean Corpuscular Volume 97.1 fL (80.0-100.0); Mean Platelet Volume 9.5 fL (9.4-12.3); Platelet Count 270 K/uL (130-400); RDW Standard Deviation 52.6 fL (36.4-46.3); Red Blood Count 3.45 M/uL (3.93-5.22); White Blood Count 8.15 K/ul (4.8-10.8)
--- NOTE | 2022-09-16 08:28 | Hospitalist Progress Note ---
Date of Service September 16, 2022 Assessment & Plan (1) Acute on chronic combined systolic and diastolic heart failure: Plan: 82 y/o female with complex PMH including acute on chronic HFrEF with diastolic dysfunction, CAD w/ class 3-4 angina, PAF, tachy-tanner syndrome s/p PPM placement, aortic stenosis s/p TAVR, chronic AC, mitral stenosis, pulmonary HTN, DM2 with neuropathy, carotid stenosis s/o bilateral carotid endarterectomies, PVD, HTN, hypothyroidism, hyperlipidemia, GERD, chronic laryngospasm, RLS, glaucoma, and depression who presented today with progressive weakness and worsening respiratory status. Found to by hypoxic on presentation with a pulseox in the 70s, has responded to supplemental O2. Clinical picture c/w acute decompensation of chronic HFrEF with resultant hypoxia. Also noted to have an MARY, likely related to more aggressive diuretic regimen outpatient. Troponin noted to be elevated, likely due to demand ischemic from known CAD with class 4 angina, worsened by hypoxia, and current MARY., and UTI. repeat CXR: similar to previous 1. Cardiomegaly with unchanged pulmonary edema. 2. Stable left greater than right pleural effusions and mild bibasilar consolidation. Chest US: Limited exam secondary to lack of patient cooperation. Bilateral pleural effusions are redemonstrated. The right pleural effusion demonstrates a volume of approximately 174 mL. The left pleural effusion demonstrates a volume of approximately 279 mL. Echo: EF 35-40%, grade 3 Diastolic Dysfunction, otherwise unchanged compared to 06/2022 remains on 1-2 L nasal cannula crea 2.0 --> 1.8 -> 1.5 Switched from Lasix 40mg IV BID -> PO lasix (09/14/22) Nephrology and Cardiology following UTI urine culture: E.coli, pansensitive empiric Ceftriaxone 1g IV daily- switch to PO Ankle pain / poss. gout flare - discussed w/ nephrology - given renal function, steroids preferred - started prednisone - pt denies any more ankle pain (2) Hypoxia: Plan: secondary to above wean off oxygen accordingly (3) MARY (acute kidney injury): Plan: cardiorenal syndrome? 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 A1c 07/13/22 was 8.3% - Sliding scale insulin - Diabetic diet, BSG ACHS (9) Diabetic neuropathy: Plan: Continue gabapentin (10) GERD (gastroesophageal reflux disease): Plan: Continue PPI therapy (11) Hyperlipidemia: Plan: Continue statin (12) Hypertension: (13) Glaucoma: Plan Code Status: Full Code DVT Prophylaxis: on chronic warfarin Disposition patient's daughter prefers patient to transition to SNF Admission and Anticipated Discharge Date Admission Date: September 12, 2022 Subjective Pt seen in follow up for acute on chronic systolic CHF exacerbation, MARY, UTI seen resting in bed, comfortable, in NAD on suppl. O2 via NC Reports episode of chest pain overnight, now feels ok no chest pain, dyspnea, palpitations, dizziness while at rest no cough, fever/chills no other symptoms Currently no family present at the bedside Cardiology and nephrology following. Review of Systems Review of Systems: All systems reviewed & are unremarkable except as noted in Subjective Physical Exam Physical Exam: General- oriented x 3, not in distress, speaks in sentences with no effort or accessory muscle use Eyes- anicteric Neck- no JVD Lungs- mild rales at the bases Heart- normal rate, regular rhythm; no murmurs Abdomen- normal bowel sounds, nondistended, soft, nontender Extremities- mild pretibial edema, no calf tenderness Neuro- alert, oriented x 3; no gross focal neurologic deficits Skin- warm & dry Results & Data Results & Data ([facility]) Vital Signs (Past 12 Hours) Vital Signs Temp Pulse Pulse Pulse Resp BP Pulse Ox 09/16/22 07:30 37 C 85 20 114/81 98 09/16/22 02:24 36.5 C 70 16 95/48 L 97 09/15/22 23:38 77 09/15/22 22:46 37.0 C 76 17 90/53 L 98 O2 Del Method O2 Flow Rate 09/16/22 07:30 Nasal Cannula 2 09/16/22 02:24 Nasal Cannula 2 09/15/22 23:38 09/15/22 22:46 Nasal Cannula 2 Medications Administered Current Inpatient Medications Acetaminophen (Acetaminophen 325 Mg Tab) 650 mg PO Q4H PRN PRN Reason: Pain or Fever Stop: 10/13/22 03:09 Last Admin: 09/15/22 16:24 Dose: 650 mg Ascorbic Acid (Ascorbic Acid 500 Mg Tab) 250 mg PO QAM [facility] Stop: 10/13/22 08:59 Last Admin: 09/15/22 08:25 Dose: 250 mg Atorvastatin Calcium (Atorvastatin 40 Mg Tab) 80 mg PO [facility] Stop: 10/13/22 08:59 Last Admin: 09/15/22 08:25 Dose: 80 mg Clopidogrel Bisulfate (Clopidogrel Bisulfate 75 Mg Tab) [facility] Stop: 10/13/22 08:59 Last Admin: 09/15/22 08:25 Dose: 75 mg Dextrose (Dextrose 50% 50 Ml Syringe) 25 - 50 ml IV UD PRN; Protocol PRN Reason: Hypoglycemia Protocol Stop: 10/13/22 03:09 Ferrous Sulfate (Ferrous Sulfate 325 Mg Tab) 325 mg PO [facility] Stop: 10/13/22 08:59 Last Admin: 09/15/22 08:25 Dose: 325 mg Fluticasone Propionate (Fluticasone Propionate Na Spr 16 Gm Btl) 2 sprays JAQUELIN DAILY [facility] Stop: 10/13/22 08:59 Last Admin: 09/15/22 08:25 Dose: 2 sprays Furosemide (Furosemide 40 Mg Tab) 40 mg PO BID17 [facility] Stop: 10/14/22 16:59 Last Admin: 09/15/22 17:22 Dose: 40 mg Gabapentin (Gabapentin 300 Mg Cap) 600 mg PO HS [facility] Stop: 10/13/22 03:09 Last Admin: 09/15/22 20:27 Dose: 600 mg Glucagon (Glucagon For Inj 1 Mg Vial) 1 mg SQ UD PRN; Protocol PRN Reason: Hypoglycemia Protocol Stop: 10/13/22 03:09 Glucose (Glucose 40% Gel 15 Gm Tube) 15 - 30 gm PO UD PRN; Protocol PRN Reason: Hypoglycemia Protocol Stop: 10/13/22 03:09 Glucose (Glucose 10 Tab/Tube) 4 - 8 tab PO UD PRN; Protocol PRN Reason: Hypoglycemia Treatment Stop: 10/13/22 03:09 Ceftriaxone Sodium 1,000 mg/ (Dextrose) 50 mls @ 100 mls/hr IV Q24H [facility]; Protocol Stop: 09/20/22 11:29 Last Infusion: 09/15/22 13:10 Dose: Infused Insulin Aspart (Insulin Aspart Per Unit) 0 units SC ACHS [facility] Stop: 10/13/22 11:29 Last Admin: 09/15/22 20:42 Dose: 3 units Isosorbide Mononitrate (Isosorbide [place] Extended Rel 60 Mg Tabcr) 120 mg PO QAM [facility] Stop: 10/13/22 08:59 Last Admin: 09/15/22 08:26 Dose: 120 mg Latanoprost (Latanoprost 0.005% Op Soln 2.5 Ml Btl) 1 drops OPB [facility] Stop: 10/13/22 03:09 Last Admin: 09/15/22 20:28 Dose: 1 drops Levothyroxine Sodium (Levothyroxine Sodium 25 Mcg Tablet) [facility] Stop: 10/13/22 06:29 Last Admin: 09/16/22 06:39 Dose: 25 mcg Magnesium Oxide (Magnesium Oxide 400 Mg Tab) 400 mg PO [facility] Stop: 10/13/22 05:59 Last Admin: 09/15/22 20:28 Dose: 400 mg Melatonin (Melatonin 3 Mg Tab) 3 mg PO HS PRN PRN Reason: Sleep Stop: 10/13/22 21:59 Last Admin: 09/15/22 20:27 Dose: 3 mg Metoprolol Succinate (Metoprolol Succ 50mg Ext Rel Tab) 100 mg PO [facility] Stop: 10/13/22 03:09 Last Admin: 09/15/22 20:27 Dose: 100 mg Metoprolol Succinate (Metoprolol Succ 50mg Ext Rel Tab) 150 mg [facility] Stop: 10/13/22 08:59 Last Admin: 09/15/22 08:26 Dose: 150 mg Miscellaneous (Carbohydrates For Hypoglycemia ) 15 - 30 gm PO UD PRN PRN Reason: Hypoglycemia Protocol Stop: 10/13/22 03:09 Miscellaneous (Remove Nitro-Dur Patch) 1 each N/A DAILY@2100 [facility] Stop: 10/13/22 20:59 Last Admin: 09/15/22 20:28 Dose: 1 each Netarsudil (Netarsudil Mesylate 37 Drops/2.5 Ml Btl) 1 drops OPB [facility] Stop: 10/15/22 20:59 Last Admin: 09/15/22 20:28 Dose: 1 drops Nitroglycerin (Nitroglycerin 0.2 Mg/Hr Patch) 1 patch TD [facility] Stop: 10/13/22 08:59 Last Admin: 09/15/22 08:26 Dose: 1 patch Pantoprazole Sodium (Pantoprazole 40 Mg Tab) 40 mg [facility] Stop: 10/13/22 08:59 Last Admin: 09/15/22 08:26 Dose: 40 mg Potassium Chloride (Potassium Chloride Crtab 20 Meq Tabcr) 20 meq PO BID [facility] Stop: 10/15/22 09:59 Last Admin: 09/15/22 20:27 Dose: 20 meq Ropinirole HCl (Ropinirole Hcl 0.25 Mg Tablet) 0.25 mg PO HS [facility] Stop: 10/13/22 03:09 Last Admin: 09/15/22 20:28 Dose: 0.25 mg Sennosides (Senna 8.6 Mg Tab) 8.6 mg [facility] Stop: 10/15/22 12:44 Last Admin: 09/15/22 13:19 Dose: 8.6 mg Warfarin Sodium (Warfarin Sod 5 Mg Tab) 5 mg PO DAILY@1600 [facility] Stop: 10/13/22 15:59 Last Admin: 09/15/22 17:22 Dose: 5 mg
[2022-09-16] MEDS: INSULIN ASPART PER UNIT SC SCH ×4 (08:33→21:25)
[2022-09-16] MEDS: CLOPIDOGREL BISULFATE 75 MG TAB PO SCH (08:34)
[2022-09-16] MEDS: NITROGLYCERIN 0.2 MG/HR PATCH TD SCH (08:34)
[2022-09-16] MEDS: FERROUS SULFATE 325 MG TAB PO SCH (08:34)
[2022-09-16] MEDS: FUROSEMIDE 40 MG TAB PO SCH ×2 (08:34→17:52)
[2022-09-16] MEDS: ATORVASTATIN 40 MG TAB PO SCH (08:34)
[2022-09-16] MEDS: ASCORBIC ACID 500 MG TAB PO SCH (08:34)
[2022-09-16] MEDS: ISOSORBIDE MONO EXTENDED REL 60 MG TABCR PO SCH (08:34)
[2022-09-16] MEDS: METOPROLOL SUCC 50MG EXT REL TAB PO SCH ×2 (08:34→20:54)
[2022-09-16] MEDS: POTASSIUM CHLORIDE CRTAB 20 MEQ TABCR PO SCH (08:35)
[2022-09-16] MEDS: PANTOprazole 40 MG TAB PO SCH (08:35)
[2022-09-16] MEDS: FLUTICASONE PROPIONATE NA SPR 16 GM BTL NAE SCH (08:35)
[2022-09-16] MEDS: MAGNESIUM OXIDE 400 MG TAB PO SCH ×2 (08:35→20:54)
[2022-09-16] MEDS: SENNA 8.6 MG TAB PO SCH (08:35)
[2022-09-16 11:50] LABS: BUN Creatinine Ratio 25.3 (10-20); Calcium 9.3 mg/dl (8.5-10.1); Creatinine Clr Calc Pharmacy 26.3 ml/min; Est GFR (African American) 34.9 ml/min; Est GFR (Non-African American) 30.2 ml/min; Magnesium 2.1 mg/dl (1.7-2.4); Phosphorus 4.1 mg/dl (2.5-4.9); Potassium 4.7 mmol/L (3.5-5.1)
--- NOTE | 2022-09-16 12:28 | Nephrology Progress Note ---
Date of Service September 16, 2022 Assessment & Plan (1) MARY (acute kidney injury): Plan: stage 1 MARY w/ again further improved creatinine this am compared to arrival > ischemic ATN d/t obligate diuretics to manage heart failure; given her obligate diuretic needs which are generally/subacutely increasing, suspect she will never again have normal renal function for long and that some of this admission will involve establishing new baseline renal function. her prior baseline in july had been 1.1-1.2 and high ones in August. -she is still overloaded but bicarb elevated > may need to consider diamoxx depending on trend >lasix lowered to 40 mg po bid now > 850 mL negative 09/15; 500 mL neg 09/16; defer further diuretics to cardiology in overall context of cardiac meds but would recheck CXR -will lower K to 10 mEq bid >if respiratory distress/compensation may use one time 40-60 mg iv lasix -daily bmp, mag, phos -on ceftriaxone for + urine culture -continue nephrotoxin avoidance >>ankel pain resolved on my exam > low threshold to start allopurinol if no acitve gout attack care coordinated w/ Dr [place] Admission and Anticipated Discharge Date Admission Date: September 12, 2022 Subjective seen on rounds at 0650; endorses confusion overnight. some angina w/ getting up to void. else no c/o including no c/o ankle pain Review of Systems Review of Systems: All systems reviewed & are unremarkable except as noted in Subjective Physical Exam Constitutional: well developed, well nourished, + frail appearing and cooperative; no acute distress Eyes: EOM intact bilaterally ENMT: Ears: no external ear abnormality Nose: no external nose abnormality Mouth: + dry oral mucous membranes Neck: no nuchal rigidity Respiratory: normal respiratory effort (while sitting in bed), + cough, able to speak in complete sentences and + paradoxical thoraco-abdominal movement; no labored breathing Auscultation: + diminished lung sounds and + crackles (throughout lower posterior mello) Cardiovascular: Rate/Rhythm: regular rate and regular rhythm Extremities: + edema (trace) Gastrointestinal (Abdomen): Inspection/Auscultation: normal bowel sounds Percussion/Palpation: abdomen soft; abdomen nontender Musculoskeletal: Extremities: strength 5/5 throughout Skin: no rashes, warm and dry Neurologic: randall, fluent speech, no tremor Psychiatric: Orientation: oriented x 3 Genitourinary: ruiz out Results & Data ([facility]) Vital Signs (Past 12 Hours) Vital Signs Temp Pulse Pulse Pulse Pulse Pulse Pulse 09/16/22 12:06 83 90 89 92 H 09/16/22 11:37 36.9 C 81 09/16/22 11:15 09/16/22 07:30 37 C 85 09/16/22 02:24 36.5 C 70 Resp Resp Resp Resp Resp BP Pulse Ox 09/16/22 12:06 16 20 18 16 09/16/22 11:37 18 95/65 L 97 09/16/22 11:15 09/16/22 07:30 20 114/81 98 09/16/22 02:24 16 95/48 L 97 Pulse Ox Pulse Ox Pulse Ox Pulse Ox O2 Del Method O2 Flow Rate O2 Flow Rate 09/16/22 12:06 96 90 99 87 L 2 09/16/22 11:37 Nasal Cannula 2 09/16/22 11:15 Nasal Cannula 2 09/16/22 07:30 Nasal Cannula 2 09/16/22 02:24 Nasal Cannula 2 O2 Flow Rate O2 Flow Rate 09/16/22 12:06 2 2 09/16/22 11:37 09/16/22 11:15 09/16/22 07:30 09/16/22 02:24 Laboratory Results 09/16/22 06:53 09/16/22 06:53
--- NOTE | 2022-09-16 12:40 | XRay Report ---
XR chest 1V portable CLINICAL HISTORY: follow up TECHNIQUE: Single frontal radiograph of the chest was obtained. Comparison: Comparison is made to chest radiograph 09/13/2022 FINDINGS: Dual lead pacemaker is seen. Cardiomegaly is noted. The aortic arch is calcified. Left retrocardiac o pacity is noted. Small left pleural effusion. IMPRESSION: Small left pleural effusion is seen. Left retrocardiac opacity may represent atelectasis, pneumonia, and/or aspiration. Stable cardiomegaly. ACT 112: Negative or not required by law. Electronically signed by: Chandler Viera M.D. 09/16/2022 12:38 PM
[2022-09-16] MEDS: predniSONE 20 MG TAB PO SCH ×2 (13:16→20:54)
[2022-09-16] MEDS: cefUROXime axetil 500 MG TAB PO SCH (13:47)
[2022-09-16] MEDS: WARFARIN SOD 5 MG TAB PO SCH (17:52)
[2022-09-16] MEDS: GABAPENTIN 300 MG CAP PO SCH (20:52)
[2022-09-16] MEDS: LATANOPROST 0.005% OP SOLN 2.5 ML BTL OPB SCH (20:53)
[2022-09-16] MEDS: guaiFENesin 600 MG TABCR PO SCH (20:53)
[2022-09-16] MEDS: NETARSUDIL MESYLATE 37 DROPS/2.5 ML BTL OPB SCH (20:54)
[2022-09-16] MEDS: POTASSIUM CHLORIDE 10 MEQ TABCR PO SCH (20:55)
[2022-09-16] MEDS: rOPINIRole HCL 0.25 MG TABLET PO SCH (20:56)
[2022-09-16] MEDS: MELATONIN 3 MG TAB PO PRN (21:43)
[2022-09-17] MEDS: NITROGLYCERIN SL 0.4 MG/TAB TAB SL PRN ×2 (03:25→23:19)
[2022-09-17] MEDS: LEVOTHYROXINE SODIUM 25 MCG TABLET PO SCH (05:17)
[2022-09-17 06:27] LABS: Hematocrit (blood only) 35.2 % (34.1-44.9); Hemoglobin 10.9 g/dl (12.0-16.0); Mean Corpuscular Hemoglobin 29.8 pg (25.0-34.0); Mean Corpuscular Volume 96.2 fL (80.0-100.0); Mean Platelet Volume 10.1 fL (9.4-12.3); Platelet Count 308 K/uL (130-400); RDW Coefficient of Variation 14.9 % (11.5-14.5); Red Blood Count 3.66 M/uL (3.93-5.22)
[2022-09-17 06:54] LABS: BUN Creatinine Ratio 28.5 (10-20); Calcium 9.4 mg/dl (8.5-10.1); Creatinine Clr Calc Pharmacy 24.5 ml/min; Est GFR (African American) 31.5 ml/min; Est GFR (Non-African American) 27.2 ml/min; Magnesium 2.2 mg/dl (1.7-2.4); Phosphorus 5.4 mg/dl (2.5-4.9); Potassium 5.9 mmol/L (3.5-5.1)
[2022-09-17] MEDS: INSULIN ASPART PER UNIT SC SCH ×4 (08:10→20:18)
[2022-09-17] MEDS: guaiFENesin 600 MG TABCR PO SCH ×2 (08:11→20:27)
[2022-09-17] MEDS: FUROSEMIDE 40 MG TAB PO SCH ×2 (08:11→17:34)
[2022-09-17] MEDS: PANTOprazole 40 MG TAB PO SCH (08:11)
[2022-09-17] MEDS: ASCORBIC ACID 500 MG TAB PO SCH (08:11)
[2022-09-17] MEDS: ISOSORBIDE MONO EXTENDED REL 60 MG TABCR PO SCH (08:11)
[2022-09-17] MEDS: MAGNESIUM OXIDE 400 MG TAB PO SCH ×2 (08:11→20:27)
[2022-09-17] MEDS: NITROGLYCERIN 0.2 MG/HR PATCH TD SCH (08:11)
[2022-09-17] MEDS: ATORVASTATIN 40 MG TAB PO SCH (08:11)
[2022-09-17] MEDS: CLOPIDOGREL BISULFATE 75 MG TAB PO SCH (08:11)
[2022-09-17] MEDS: FERROUS SULFATE 325 MG TAB PO SCH (08:11)
[2022-09-17] MEDS: METOPROLOL SUCC 50MG EXT REL TAB PO SCH ×2 (08:11→20:27)
[2022-09-17] MEDS: predniSONE 20 MG TAB PO SCH ×2 (08:12→20:28)
[2022-09-17] MEDS: POTASSIUM CHLORIDE 10 MEQ TABCR PO SCH (08:12)
[2022-09-17] MEDS: FLUTICASONE PROPIONATE NA SPR 16 GM BTL NAE SCH (08:12)
[2022-09-17] MEDS: SENNA 8.6 MG TAB PO SCH (08:12)
--- NOTE | 2022-09-17 08:50 | Hospitalist Progress Note ---
Date of Service September 17, 2022 Assessment & Plan (1) Acute on chronic combined systolic and diastolic heart failure: Plan: 82 y/o female with complex PMH including acute on chronic HFrEF with diastolic dysfunction, CAD w/ class 3-4 angina, PAF, tachy-tanner syndrome s/p PPM placement, aortic stenosis s/p TAVR, chronic AC, mitral stenosis, pulmonary HTN, DM2 with neuropathy, carotid stenosis s/o bilateral carotid endarterectomies, PVD, HTN, hypothyroidism, hyperlipidemia, GERD, chronic laryngospasm, RLS, glaucoma, and depression who presented today with progressive weakness and worsening respiratory status. Found to by hypoxic on presentation with a pulseox in the 70s, has responded to supplemental O2. Clinical picture c/w acute decompensation of chronic HFrEF with resultant hypoxia. Also noted to have an MARY, likely related to more aggressive diuretic regimen outpatient. Troponin noted to be elevated, likely due to demand ischemic from known CAD with class 4 angina, worsened by hypoxia, and current MARY., and UTI. repeat CXR: similar to previous 1. Cardiomegaly with unchanged pulmonary edema. 2. Stable left greater than right pleural effusions and mild bibasilar consolidation. Chest US: Limited exam secondary to lack of patient cooperation. Bilateral pleural effusions are redemonstrated. The right pleural effusion demonstrates a volume of approximately 174 mL. The left pleural effusion demonstrates a volume of approximately 279 mL. Echo: EF 35-40%, grade 3 Diastolic Dysfunction, otherwise unchanged compared to 06/2022 remains on 1-2 L nasal cannula crea 2.0 --> 1.8 -> 1.5 Switched from Lasix 40mg IV BID -> PO lasix (09/14/22) Nephrology and Cardiology following UTI urine culture: E.coli, pansensitive empiric Ceftriaxone 1g IV daily - switch to PO Ankle pain / poss. gout flare - discussed w/ nephrology - given renal function, steroids preferred - started prednisone - pt denies any more ankle pain (2) Hypoxia: Plan: secondary to above wean off oxygen accordingly (3) MARY (acute kidney injury): Plan: cardiorenal syndrome? [employer] Systems [employer]st consulted management per above (4) Acute hyperkalemia: Plan: 5.2 --> 4.1 -> 3.9 ->4.7 -> 5.9 - stopped potassium supplement - gave aris (5) Chronic anticoagulation: Plan: INR 3.8 hold coumadin (6) Angina pectoris: Plan: medically managed inoperable CAD lesions per last Cardiac cath continue usual NitroDur patch, Imdur, Metoprolol management per Cardiology service (7) ASCVD (arteriosclerotic cardiovascular disease): (8) Diabetes mellitus, type 2: Plan: Holding outpatient regimen. A1c 07/13/22 was 8.3% - Sliding scale insulin - Diabetic diet, BSG ACHS (9) Diabetic neuropathy: Plan: Continue gabapentin (10) GERD (gastroesophageal reflux disease): Plan: Continue PPI therapy (11) Hyperlipidemia: Plan: Continue statin (12) Hypertension: (13) Glaucoma: Plan Code Status: Full Code DVT Prophylaxis: on chronic warfarin Disposition - patient's daughter prefers patient to transition to SNF Admission and Anticipated Discharge Date Admission Date: September 12, 2022 Subjective Pt seen in follow up for acute on chronic systolic CHF exacerbation, MARY, UTI seen resting in bed, comfortable, in NAD Overnight, again had episode of chest pain on suppl. O2 via NC Currently feels comfortable no chest pain, dyspnea, palpitations, dizziness while at rest no cough, fever/chills no other symptoms Currently no family present at the bedside Cardiology and nephrology following. Potassium elevated this AM - hold supplement, repeat BMP, gave K binder Review of Systems Review of Systems: All systems reviewed & are unremarkable except as noted in Subjective Physical Exam Physical Exam: General- oriented x 3, not in distress, speaks in sentences with no effort or accessory muscle use Eyes- anicteric Neck- no JVD Lungs- mild rales at the bases Heart- normal rate, regular rhythm; no murmurs Abdomen- normal bowel sounds, nondistended, soft, nontender Extremities- mild pretibial edema, no calf tenderness Neuro- alert, oriented x 3; no gross focal neurologic deficits Skin- warm & dry Results & Data Results & Data ([facility]) Vital Signs (Past 12 Hours) Vital Signs Temp Pulse Pulse Pulse Resp BP Pulse Ox 09/17/22 07:16 36.6 C 87 18 122/80 97 09/17/22 05:31 78 09/17/22 02:43 36.4 C L 77 19 118/66 92 09/16/22 23:02 36.5 C 79 20 103/75 98 O2 Del Method O2 Flow Rate 01/21/23 07:16 Nasal Cannula 2 09/17/22 05:31 09/17/22 02:43 Nasal Cannula 2 09/16/22 23:02 Nasal Cannula 2 Laboratory Results 09/17/22 09/17/22 09/17/22 Range/Units 07:15 05:21 05:21 WBC 8.20 (4.8-10.8) K/ul RBC 3.66 L (3.93-5.22) M/uL Hgb 10.9 L (12.0-16.0) g/dl Hct 35.2 (34.1-44.9) % MCV 96.2 (80.0-100.0) fL MCH 29.8 (25.0-34.0) pg MCHC 31.0 L (32.0-36.0) g/dL RDW Std Deviation 52.0 H (36.4-46.3) fL RDW Coeff of Omid 14.9 H (11.5-14.5) % Plt Count 308 (130-400) K/uL MPV 10.1 (9.4-12.3) fL Sodium 139 (136-145) mmol/L Potassium 5.9 H D (3.5-5.1) mmol/L Chloride 95 L (98-107) mmol/L Carbon Dioxide 36 H (21-32) mmol/L Anion Gap 8 (3-11) BUN 49 H (6-23) mg/dl Creatinine 1.72 H (0.6-1.2) mg/dl Est Cr Clr Drug Dosing 24.5 ml/min Est GFR ( Amer) 31.5 ml/min Est GFR (Non-Af Amer) 27.2 ml/min BUN/Creatinine Ratio 28.5 H (10-20) Glucose 259 H (70-99(Fasting)) mg/dl POC Glucose 219 H (70-99) mg/dl Calcium 9.4 (8.5-10.1) mg/dl Phosphorus 5.4 H (2.5-4.9) mg/dl Magnesium 2.2 (1.7-2.4) mg/dl 09/16/22 09/16/22 09/16/22 Range/Units 20:51 16:22 11:19 WBC (4.8-10.8) K/ul RBC (3.93-5.22) M/uL Hgb (12.0-16.0) g/dl Hct (34.1-44.9) % MCV (80.0-100.0) fL MCH (25.0-34.0) pg MCHC (32.0-36.0) g/dL RDW Std Deviation (36.4-46.3) fL RDW Coeff of Omid (11.5-14.5) % Plt Count (130-400) K/uL MPV (9.4-12.3) fL Sodium (136-145) mmol/L Potassium (3.5-5.1) mmol/L Chloride (98-107) mmol/L Carbon Dioxide (21-32) mmol/L Anion Gap (3-11) BUN (6-23) mg/dl Creatinine (0.6-1.2) mg/dl Est Cr Clr Drug Dosing ml/min Est GFR ( Amer) ml/min Est GFR (Non-Af Amer) ml/min BUN/Creatinine Ratio (10-20) Glucose (70-99(Fasting)) mg/dl POC Glucose 231 H 124 H 203 H (70-99) mg/dl Calcium (8.5-10.1) mg/dl Phosphorus (2.5-4.9) mg/dl Magnesium (1.7-2.4) mg/dl 09/16/22 Range/Units 06:53 WBC (4.8-10.8) K/ul RBC (3.93-5.22) M/uL Hgb (12.0-16.0) g/dl Hct (34.1-44.9) % MCV (80.0-100.0) fL MCH (25.0-34.0) pg MCHC (32.0-36.0) g/dL RDW Std Deviation (36.4-46.3) fL RDW Coeff of Omid (11.5-14.5) % Plt Count (130-400) K/uL MPV (9.4-12.3) fL Sodium 145 (136-145) mmol/L Potassium 4.7 D (3.5-5.1) mmol/L Chloride 97 L (98-107) mmol/L Carbon Dioxide 39 H (21-32) mmol/L Anion Gap 9 (3-11) BUN 40 H (6-23) mg/dl Creatinine 1.58 H (0.6-1.2) mg/dl Est Cr Clr Drug Dosing 26.3 ml/min Est GFR ( Amer) 34.9 ml/min Est GFR (Non-Af Amer) 30.2 ml/min BUN/Creatinine Ratio 25.3 H (10-20) Glucose 159 H (70-99(Fasting)) mg/dl POC Glucose (70-99) mg/dl Calcium 9.3 (8.5-10.1) mg/dl Phosphorus 4.1 (2.5-4.9) mg/dl Magnesium 2.1 (1.7-2.4) mg/dl Medications Administered Current Inpatient Medications Acetaminophen (Acetaminophen 325 Mg Tab) 650 mg PO Q4H PRN PRN Reason: Pain or Fever Stop: 10/13/22 03:09 Last Admin: 09/15/22 16:24 Dose: 650 mg Ascorbic Acid (Ascorbic Acid 500 Mg Tab) 250 mg PO [facility] Stop: 10/13/22 08:59 Last Admin: 09/17/22 08:11 Dose: 250 mg Atorvastatin Calcium (Atorvastatin 40 Mg Tab) [facility] Stop: 10/13/22 08:59 Last Admin: 09/17/22 08:11 Dose: 80 mg Cefuroxime Axetil (Cefuroxime Axetil 500 Mg Tab) 500 mg PO Q24H [facility] Stop: 09/23/22 12:59 Last Admin: 09/16/22 13:47 Dose: 500 mg Clopidogrel Bisulfate (Clopidogrel Bisulfate 75 Mg Tab) 75 mg PO [facility] Stop: 10/13/22 08:59 Last Admin: 09/17/22 08:11 Dose: 75 mg Dextrose (Dextrose 50% 50 Ml Syringe) 25 - 50 ml IV UD PRN; Protocol PRN Reason: Hypoglycemia Protocol Stop: 10/13/22 03:09 Ferrous Sulfate (Ferrous Sulfate 325 Mg Tab) 325 mg [facility] [place] Stop: 10/13/22 08:59 Last Admin: 09/17/22 08:11 Dose: 325 mg Fluticasone Propionate (Fluticasone Propionate Na Spr 16 Gm Btl) 2 sprays JAQUELIN DAILY [facility] Stop: 10/13/22 08:59 Last Admin: 09/17/22 08:12 Dose: 2 sprays Furosemide (Furosemide 40 Mg Tab) 40 mg PO BID17 [facility] Stop: 10/14/22 16:59 Last Admin: 09/17/22 08:11 Dose: 40 mg Gabapentin (Gabapentin 300 Mg Cap) 600 mg PO HS [facility] Stop: 10/13/22 03:09 Last Admin: 09/16/22 20:52 Dose: 600 mg Glucagon (Glucagon For Inj 1 Mg Vial) 1 mg SQ UD PRN; Protocol PRN Reason: Hypoglycemia Protocol Stop: 10/13/22 03:09 Glucose (Glucose 40% Gel 15 Gm Tube) 15 - 30 gm PO UD PRN; Protocol PRN Reason: Hypoglycemia Protocol Stop: 10/13/22 03:09 Glucose (Glucose 10 Tab/Tube) 4 - 8 tab PO UD PRN; Protocol PRN Reason: Hypoglycemia Treatment Stop: 10/13/22 03:09 Guaifenesin (Guaifenesin 600 Mg Tabcr) 600 mg PO Q12 [facility] Stop: 10/16/22 20:59 Last Admin: 09/17/22 08:11 Dose: 600 mg Insulin Aspart (Insulin Aspart Per Unit) 0 units SC ACHS [facility] Stop: 10/13/22 11:29 Last Admin: 09/17/22 08:10 Dose: 8 units Isosorbide Mononitrate (Isosorbide [place] Extended Rel 60 Mg Tabcr) 120 mg PO QAM [facility] Stop: 10/13/22 08:59 Last Admin: 09/17/22 08:11 Dose: 120 mg Latanoprost (Latanoprost 0.005% Op Soln 2.5 Ml Btl) 1 drops OPB HS [facility] Stop: 10/13/22 03:09 Last Admin: 09/16/22 20:53 Dose: 1 drops Levothyroxine Sodium (Levothyroxine Sodium 25 Mcg Tablet) 25 mcg PO DAILYBB [facility] Stop: 10/13/22 06:29 Last Admin: 09/17/22 05:17 Dose: 25 mcg Magnesium Oxide (Magnesium Oxide 400 Mg Tab) 400 mg PO AMHS [facility] Stop: 10/13/22 05:59 Last Admin: 09/17/22 08:11 Dose: 400 mg Melatonin (Melatonin 3 Mg Tab) 3 mg PO HS PRN PRN Reason: Sleep Stop: 10/13/22 21:59 Last Admin: 09/16/22 21:43 Dose: 3 mg Metoprolol Succinate (Metoprolol Succ 50mg Ext Rel Tab) 100 mg PO [facility] Stop: 10/13/22 03:09 Last Admin: 09/16/22 20:54 Dose: 100 mg Metoprolol Succinate (Metoprolol Succ 50mg Ext Rel Tab) 150 mg [facility] [place] Stop: 10/13/22 08:59 Last Admin: 09/17/22 08:11 Dose: 150 mg Miscellaneous (Carbohydrates For Hypoglycemia ) 15 - 30 gm PO UD PRN PRN Reason: Hypoglycemia Protocol Stop: 10/13/22 03:09 Miscellaneous (Remove Nitro-Dur Patch) 1 each N/A DAILY@2100 [facility] Stop: 10/13/22 20:59 Last Admin: 09/16/22 20:55 Dose: 1 each Netarsudil (Netarsudil Mesylate 37 Drops/2.5 Ml Btl) 1 drops OPB [facility] Stop: 10/15/22 20:59 Last Admin: 09/16/22 20:54 Dose: 1 drops Nitroglycerin (Nitroglycerin 0.2 Mg/Hr Patch) 1 patch TD [facility] Stop: 10/13/22 08:59 Last Admin: 09/17/22 08:11 Dose: 1 patch Nitroglycerin (Nitroglycerin Sl 0.4 Mg/Tab Tab) 0.4 mg SL PRN PRN PRN Reason: Chest Pain Stop: 10/17/22 03:19 Last Admin: 09/17/22 03:25 Dose: 0.4 mg Pantoprazole Sodium (Pantoprazole 40 Mg Tab) 40 mg PO [facility] Stop: 10/13/22 08:59 Last Admin: 09/17/22 08:11 Dose: 40 mg Potassium Chloride (Potassium Chloride 10 Meq Tabcr) 10 meq PO BID [facility] Stop: 10/16/22 20:59 Last Admin: 09/17/22 08:12 Dose: 10 meq Prednisone (Prednisone 20 Mg Tab) 20 mg PO BID [facility] Stop: 10/16/22 12:44 Last Admin: 09/17/22 08:12 Dose: 20 mg Ropinirole HCl (Ropinirole Hcl 0.25 Mg Tablet) 0.25 mg PO [facility] Stop: 10/13/22 03:09 Last Admin: 09/16/22 20:56 Dose: 0.25 mg Sennosides (Senna 8.6 Mg Tab) 8.6 mg PO QAM [facility] Stop: 10/15/22 12:44 Last Admin: 09/17/22 08:12 Dose: 8.6 mg Sodium Zirconium Cyclosilicate (Sodium Zirconium Cyclosilicate 10 Gm Packet) 10 gm PO 0700,1500,2300 [facility] Stop: 09/18/22 23:01 Warfarin Sodium (Warfarin Sod 5 Mg Tab) 5 mg PO DAILY@1600 [facility] Stop: 10/13/22 15:59 Last Admin: 09/16/22 17:52 Dose: 5 mg
[2022-09-17 09:58] LABS: INR 3.8 (0.9-1.1); Prothrombin Time 37.7 Seconds (9.0-12.0)
[2022-09-17] MEDS: SODIUM ZIRCONIUM CYCLOSILICATE 10 GM PACKET PO SCH ×3 (10:11→23:17)
[2022-09-17] MEDS: cefUROXime axetil 500 MG TAB PO SCH (12:41)
--- NOTE | 2022-09-17 13:17 | Cardiology Progress Note ---
Date of Service September 17, 2022 Assessment & Plan (1) Acute on chronic combined systolic and diastolic heart failure: (2) Hypoxia: (3) Pulmonary edema: (4) Troponin level elevated: (5) CKD (chronic kidney disease): Plan The patient has severe coronary artery disease which is medical management only. She frequently has chest pain and takes sublingual nitroglycerin for relief. She is having some breakthrough angina it seems like at night here in the hospital. Sublingual nitroglycerin has been ordered for her on a as needed basis but she may benefit if she can have the nitroglycerin at her bedside so she can take it herself and not have to call the nurse and wait for it to be given to her. I believe her heart failure has resolved. Her potassium is a little elevated today and her supplements have been held by nephrology. Admission and Anticipated Discharge Date Admission Date: September 12, 2022 Subjective The patient is sitting comfortably in a chair. Her family is visiting her. Unfortunately she is having breakthrough angina at night. She takes frequent sublingual nitroglycerin at home. I think the best option is for her to have gonzalez blingual nitroglycerin at her bedside that she can take as needed on her own. Review of Systems Review of Systems: Review of Systems: See HPI for pertinent positives. All other 10 point review of systems are negative. Physical Exam Physical Exam: General: no acute distress and stated age Head: normocephalic, no masses, lesions, tenderness or abnormalities Eyes: conjunctiva are pink and non-injected, sclera clear Neck: supple, no adenopathy, no bruits, normal jugular venous pulse, no hepatojugular reflux Chest: normal shape and normal respiratory effort Lungs: clear to auscultation and percussion Cardiac Exam: - regular rate & rhythm, no murmurs gallops or rubs - normal S1, normal S2 Pulses: 2(+) throughout Abdomen: abdomen soft, non-tender, no abnormal masses and no hepatosplenomegaly Musculoskeletal: no gait disturbance, no joint inflammation, no deforming arthritis Extremities: no edema and no cyanosis Neuro: grossly normal exam Results & Data ([facility]) Vital Signs (Past 12 Hours) Vital Signs Temp Pulse Pulse Resp BP Pulse Ox O2 Del Method 09/17/22 07:16 36.6 C 87 18 122/80 97 Nasal Cannula 09/17/22 05:31 78 09/17/22 02:43 36.4 C L 77 19 118/66 92 Nasal Cannula O2 Flow Rate 09/17/22 07:16 2 09/17/22 05:31 09/17/22 02:43 2 Laboratory Results Laboratory Results - last 24 hr 09/16/22 09/16/22 09/17/22 16:22 20:51 05:21 WBC 8.20 RBC 3.66 L Hgb 10.9 L Hct 35.2 MCV 96.2 MCH 29.8 MCHC 31.0 L RDW Std Deviation 52.0 H RDW Coeff of Omid 14.9 H Plt Count 308 MPV 10.1 PT INR Sodium Potassium Chloride Carbon Dioxide Anion Gap BUN Creatinine Est Cr Clr Drug Dosing Est GFR ( Amer) Est GFR (Non-Af Amer) BUN/Creatinine Ratio Glucose POC Glucose 124 H 231 H Calcium Phosphorus Magnesium 09/17/22 09/17/22 09/17/22 05:21 07:15 09:22 WBC RBC Hgb Hct MCV MCH MCHC RDW Std Deviation RDW Coeff of Omid Plt Count MPV PT 37.7 H INR 3.8 H Sodium 139 Potassium 5.9 H D Chloride 95 L Carbon Dioxide 36 H Anion Gap 8 BUN 49 H Creatinine 1.72 H Est Cr Clr Drug Dosing 24.5 Est GFR ( Amer) 31.5 Est GFR (Non-Af Amer) 27.2 BUN/Creatinine Ratio 28.5 H Glucose 259 H POC Glucose 219 H Calcium 9.4 Phosphorus 5.4 H Magnesium 2.2 09/17/22 11:13 WBC RBC Hgb Hct MCV MCH MCHC RDW Std Deviation RDW Coeff of Omid Plt Count MPV PT INR Sodium Potassium Chloride Carbon Dioxide Anion Gap BUN Creatinine Est Cr Clr Drug Dosing Est GFR ( Amer) Est GFR (Non-Af Amer) BUN/Creatinine Ratio Glucose POC Glucose 225 H Calcium Phosphorus Magnesium Medications Administered Current Inpatient Medications Acetaminophen (Acetaminophen 325 Mg Tab) 650 mg PO Q4H PRN PRN Reason: Pain or Fever Stop: 10/13/22 03:09 Last Admin: 09/15/22 16:24 Dose: 650 mg Ascorbic Acid (Ascorbic Acid 500 Mg Tab) 250 mg PO [facility] Stop: 10/13/22 08:59 Last Admin: 09/17/22 08:11 Dose: 250 mg Atorvastatin Calcium (Atorvastatin 40 Mg Tab) 80 mg PO [facility] Stop: 10/13/22 08:59 Last Admin: 09/17/22 08:11 Dose: 80 mg Cefuroxime Axetil (Cefuroxime Axetil 500 Mg Tab) 500 mg PO Q24H [facility] Stop: 09/23/22 12:59 Last Admin: 09/17/22 12:41 Dose: 500 mg Clopidogrel Bisulfate (Clopidogrel Bisulfate 75 Mg Tab) 75 mg PO QAM [facility] Stop: 10/13/22 08:59 Last Admin: 09/17/22 08:11 Dose: 75 mg Dextrose (Dextrose 50% 50 Ml Syringe) 25 - 50 ml IV UD PRN; Protocol PRN Reason: Hypoglycemia Protocol Stop: 10/13/22 03:09 Ferrous Sulfate (Ferrous Sulfate 325 Mg Tab) [facility] [place]: 10/13/22 08:59 Last Admin: 09/17/22 08:11 Dose: 325 mg Fluticasone Propionate (Fluticasone Propionate Na Spr 16 Gm Btl) 2 sprays JAQUELIN DAILY [facility] Stop: 10/13/22 08:59 Last Admin: 09/17/22 08:12 Dose: 2 sprays Furosemide (Furosemide 40 Mg Tab) 40 mg PO BID17 [facility] Stop: 10/14/22 16:59 Last Admin: 09/17/22 08:11 Dose: 40 mg Gabapentin (Gabapentin 300 Mg Cap) 600 mg PO HS [facility] Stop: 10/13/22 03:09 Last Admin: 09/16/22 20:52 Dose: 600 mg Glucagon (Glucagon For Inj 1 Mg Vial) 1 mg SQ UD PRN; Protocol PRN Reason: Hypoglycemia Protocol Stop: 10/13/22 03:09 Glucose (Glucose 40% Gel 15 Gm Tube) 15 - 30 gm PO UD PRN; Protocol PRN Reason: Hypoglycemia Protocol Stop: 10/13/22 03:09 Glucose (Glucose 10 Tab/Tube) 4 - 8 tab PO UD PRN; Protocol PRN Reason: Hypoglycemia Treatment Stop: 10/13/22 03:09 Guaifenesin (Guaifenesin 600 Mg Tabcr) 600 mg PO Q12 [facility] Stop: 10/16/22 20:59 Last Admin: 09/17/22 08:11 Dose: 600 mg Insulin Aspart (Insulin Aspart Per Unit) 0 units SC ACHS [facility] Stop: 10/13/22 11:29 Last Admin: 09/17/22 12:40 Dose: 5 units Isosorbide Mononitrate (Isosorbide [place] Extended Rel 60 Mg Tabcr) 120 mg PO QAM [facility] Stop: 10/13/22 08:59 Last Admin: 09/17/22 08:11 Dose: 120 mg Latanoprost (Latanoprost 0.005% Op Soln 2.5 Ml Btl) 1 drops OPB HS [facility] Stop: 10/13/22 03:09 Last Admin: 09/16/22 20:53 Dose: 1 drops Levothyroxine Sodium (Levothyroxine Sodium 25 Mcg Tablet) 25 mcg PO DAILYBB [facility] Stop: 10/13/22 06:29 Last Admin: 09/17/22 05:17 Dose: 25 mcg Magnesium Oxide (Magnesium Oxide 400 Mg Tab) 400 mg PO AMHS [facility] Stop: 10/13/22 05:59 Last Admin: 09/17/22 08:11 Dose: 400 mg Melatonin (Melatonin 3 Mg Tab) 3 mg PO HS PRN PRN Reason: Sleep Stop: 10/13/22 21:59 Last Admin: 09/16/22 21:43 Dose: 3 mg Metoprolol Succinate (Metoprolol Succ 50mg Ext Rel Tab) 100 mg PO HS [facility] Stop: 10/13/22 03:09 Last Admin: 09/16/22 20:54 Dose: 100 mg Metoprolol Succinate (Metoprolol Succ 50mg Ext Rel Tab) [facility] [place] Stop: 10/13/22 08:59 Last Admin: 09/17/22 08:11 Dose: 150 mg Miscellaneous (Carbohydrates For Hypoglycemia ) 15 - 30 gm PO UD PRN PRN Reason: Hypoglycemia Protocol Stop: 10/13/22 03:09 Netarsudil (Netarsudil Mesylate 37 Drops/2.5 Ml Btl) 1 drops OPB [facility] Stop: 10/15/22 20:59 Last Admin: 09/16/22 20:54 Dose: 1 drops Nitroglycerin (Nitroglycerin Sl 0.4 Mg/Tab Tab) 0.4 mg SL PRN PRN PRN Reason: Chest Pain Stop: 10/17/22 03:19 Last Admin: 09/17/22 03:25 Dose: 0.4 mg Pantoprazole Sodium (Pantoprazole 40 Mg Tab) [facility] [place]: 10/13/22 08:59 Last Admin: 09/17/22 08:11 Dose: 40 mg Potassium Chloride (Potassium Chloride 10 Meq Tabcr) 10 meq PO BID [facility] Stop: 10/16/22 20:59 Last Admin: 09/17/22 08:12 Dose: 10 meq Prednisone (Prednisone 20 Mg Tab) 20 mg PO BID [facility] Stop: 10/16/22 12:44 Last Admin: 09/17/22 08:12 Dose: 20 mg Ropinirole HCl (Ropinirole Hcl 0.25 Mg Tablet) 0.25 mg PO HS [facility] Stop: 10/13/22 03:09 Last Admin: 09/16/22 20:56 Dose: 0.25 mg Sennosides (Senna 8.6 Mg Tab) 8.6 mg PO QAM [facility] Stop: 10/15/22 12:44 Last Admin: 09/17/22 08:12 Dose: 8.6 mg Sodium Zirconium Cyclosilicate (Sodium Zirconium Cyclosilicate 10 Gm Packet) 10 gm PO 0700,1500,2300 [facility] Stop: 09/18/22 23:01 Last Admin: 09/17/22 10:11 Dose: 10 gm Warfarin Sodium (Warfarin Sod 5 Mg Tab) 5 mg PO DAILY@1600 [facility] Stop: 10/13/22 15:59 Last Admin: 09/16/22 17:52 Dose: 5 mg (1) Pulmonary edema Chronicity: acute Qualified Code(s): J81.0 - Acute pulmonary edema
[2022-09-17 17:03] LABS: Est GFR (African American) 35.5 ml/min; Est GFR (Non-African American) 30.6 ml/min; Potassium 5.3 mmol/L (3.5-5.1)
[2022-09-17] MEDS: GABAPENTIN 300 MG CAP PO SCH (20:27)
[2022-09-17] MEDS: NETARSUDIL MESYLATE 37 DROPS/2.5 ML BTL OPB SCH (20:27)
[2022-09-17] MEDS: LATANOPROST 0.005% OP SOLN 2.5 ML BTL OPB SCH (20:27)
[2022-09-17] MEDS: rOPINIRole HCL 0.25 MG TABLET PO SCH (20:28)
[2022-09-17] MEDS: MELATONIN 3 MG TAB PO PRN (23:17)
[2022-09-18] MEDS: NITROGLYCERIN SL 0.4 MG/TAB TAB SL PRN ×2 (03:34→10:27)
[2022-09-18] MEDS: LEVOTHYROXINE SODIUM 25 MCG TABLET PO SCH (05:56)
[2022-09-18 06:41] LABS: Prothrombin Time 39.8 Seconds (9.0-12.0)
[2022-09-18 07:16] LABS: Calcium 9.2 mg/dl (8.5-10.1); Magnesium 2.2 mg/dl (1.7-2.4); Potassium 4.4 mmol/L (3.5-5.1)
[2022-09-18 07:23] LABS: BUN Creatinine Ratio 35.8 (10-20); Creatinine Clr Calc Pharmacy 28.4 ml/min; Est GFR (African American) 37.8 ml/min; Est GFR (Non-African American) 32.6 ml/min; Phosphorus 4.2 mg/dl (2.5-4.9)
--- NOTE | 2022-09-18 07:44 | Hospitalist Progress Note ---
Date of Service September 18, 2022 Assessment & Plan (1) Acute on chronic combined systolic and diastolic heart failure: Plan: 82 y/o female with complex PMH including acute on chronic HFrEF with diastolic dysfunction, CAD w/ class 3-4 angina, PAF, tachy-tanner syndrome s/p PPM placement, aortic stenosis s/p TAVR, chronic AC, mitral stenosis, pulmonary HTN, DM2 with neuropathy, carotid stenosis s/o bilateral carotid endarterectomies, PVD, HTN, hypothyroidism, hyperlipidemia, GERD, chronic laryngospasm, RLS, glaucoma, and depression who presented today with progressive weakness and worsening respiratory status. Found to by hypoxic on presentation with a pulseox in the 70s, has responded to supplemental O2. Clinical picture c/w acute decompensation of chronic HFrEF with resultant hypoxia. Also noted to have an MARY, likely related to more aggressive diuretic regimen outpatient. Troponin noted to be elevated, likely due to demand ischemic from known CAD with class 4 angina, worsened by hypoxia, and current MARY., and UTI. repeat CXR: similar to previous 1. Cardiomegaly with unchanged pulmonary edema. 2. Stable left greater than right pleural effusions and mild bibasilar consolidation. Chest US: Limited exam secondary to lack of patient cooperation. Bilateral pleural effusions are redemonstrated. The right pleural effusion demonstrates a volume of approximately 174 mL. The left pleural effusion demonstrates a volume of approximately 279 mL. Echo: EF 35-40%, grade 3 Diastolic Dysfunction, otherwise unchanged compared to 06/2022 remains on 2 L nasal cannula crea 2.0 --> 1.8 -> 1.5 Switched from Lasix 40mg IV BID -> PO lasix (09/14/22) - plan to switch to torsemide Continues to have chest pain with ADLs - start Ranexa (09/18/22) Nephrology and Cardiology following UTI urine culture: E.coli, pansensitive empiric Ceftriaxone 1g IV daily - switched to PO Abx Ankle pain / poss. gout flare - discussed w/ nephrology - given renal function, steroids preferred - started prednisone - pt denies any more ankle pain (2) Hypoxia: Plan: secondary to above wean off oxygen accordingly 2 step obtained - needs 2L cont. (3) MARY (acute kidney injury): Plan: cardiorenal syndrome? Supervisor [employer] consulted management per above (4) Acute hyperkalemia: Plan: 5.2 --> 4.1 -> 3.9 ->4.7 -> 5.9 -> 4.4 - stopped potassium supplement - gave lokelma - cont. to monitor K level (5) Chronic anticoagulation: Plan: INR 3.8 hold coumadin (6) Angina pectoris: Plan: medically managed inoperable CAD lesions per last Cardiac cath continue usual NitroDur patch, Imdur, Metoprolol management per Cardiology service (7) ASCVD (arteriosclerotic cardiovascular disease): (8) Diabetes mellitus, type 2: Plan: Holding outpatient regimen. A1c 07/13/22 was 8.3% - Sliding scale insulin - Diabetic diet, BSG ACHS (9) Diabetic neuropathy: Plan: Continue gabapentin (10) GERD (gastroesophageal reflux disease): Plan: Continue PPI therapy (11) Hyperlipidemia: Plan: Continue statin (12) Hypertension: (13) Glaucoma: Plan Code Status: Full Code DVT Prophylaxis: on chronic warfarin Disposition - patient's daughter prefers patient to transition to SNF Admission and Anticipated Discharge Date Admission Date: September 12, 2022 Subjective Pt seen in follow up for acute on chronic systolic CHF exacerbation, MARY, UTI seen sitting up in chair this AM, comfortable, in NAD Overnight, again had episode of chest pain going back from bathroom, took nitro SL on suppl. O2 via NC Currently no chest pain, dyspnea, palpitations, dizziness while at rest no cough, fever/chills no other symptoms Cardiology following closely. Review of Systems Review of Systems: All systems reviewed & are unremarkable except as noted in Subjective Physical Exam Physical Exam: General- oriented x 3, not in distress, speaks in sentences with no effort or accessory muscle use, on 2 L O2 via NC Eyes- anicteric Neck- no JVD Lungs- mild rales at the bases Heart- normal rate, regular rhythm; no murmurs Abdomen- normal bowel sounds, nondistended, soft, nontender Extremities- mild pretibial edema, no calf tenderness Neuro- alert, oriented x 3; no gross focal neurologic deficits Skin- warm & dry Results & Data Results & Data ([facility]) Vital Signs (Past 12 Hours) Vital Signs Temp Pulse Pulse Pulse Resp BP Pulse Ox 09/18/22 02:55 37 C 74 16 143/70 H 99 09/18/22 00:03 77 09/17/22 22:55 36.6 C 74 17 101/46 L 99 09/17/22 21:06 O2 Del Method O2 Flow Rate 09/18/22 02:55 Nasal Cannula 2 09/18/22 00:03 09/17/22 22:55 Nasal Cannula 2 09/17/22 21:06 Nasal Cannula 2 Laboratory Results 09/18/22 09/18/22 09/18/22 Range/Units 10:55 07:16 05:17 PT 39.8 H (9.0-12.0) Seconds INR 4.0 H (0.9-1.1) Sodium (136-145) mmol/L Potassium (3.5-5.1) mmol/L Chloride (98-107) mmol/L Carbon Dioxide (21-32) mmol/L Anion Gap (3-11) BUN (6-23) mg/dl Creatinine (0.6-1.2) mg/dl Est Cr Clr Drug Dosing ml/min Est GFR ( Amer) ml/min Est GFR (Non-Af Amer) ml/min BUN/Creatinine Ratio (10-20) Glucose (70-99(Fasting)) mg/dl POC Glucose 274 H 182 H (70-99) mg/dl Calcium (8.5-10.1) mg/dl Phosphorus (2.5-4.9) mg/dl Magnesium (1.7-2.4) mg/dl 09/18/22 09/17/22 09/17/22 Range/Units 05:17 20:16 16:19 PT (9.0-12.0) Seconds INR (0.9-1.1) Sodium 139 (136-145) mmol/L Potassium 4.4 (3.5-5.1) mmol/L Chloride 95 L (98-107) mmol/L Carbon Dioxide 38 H (21-32) mmol/L Anion Gap 6 (3-11) BUN 53 H (6-23) mg/dl Creatinine 1.48 H (0.6-1.2) mg/dl Est Cr Clr Drug Dosing 28.4 ml/min Est GFR ( Amer) 37.8 ml/min Est GFR (Non-Af Amer) 32.6 ml/min BUN/Creatinine Ratio 35.8 H (10-20) Glucose 175 H (70-99(Fasting)) mg/dl POC Glucose 243 H 290 H (70-99) mg/dl Calcium 9.2 (8.5-10.1) mg/dl Phosphorus 4.2 D (2.5-4.9) mg/dl Magnesium 2.2 (1.7-2.4) mg/dl 09/17/22 Range/Units 16:07 PT (9.0-12.0) Seconds INR (0.9-1.1) Sodium 136 (136-145) mmol/L Potassium 5.3 H (3.5-5.1) mmol/L Chloride 93 L (98-107) mmol/L Carbon Dioxide 38 H (21-32) mmol/L Anion Gap 5 (3-11) BUN 53 H (6-23) mg/dl Creatinine 1.56 H (0.6-1.2) mg/dl Est Cr Clr Drug Dosing 27.0 ml/min Est GFR ( Amer) 35.5 ml/min Est GFR (Non-Af Amer) 30.6 ml/min BUN/Creatinine Ratio 34.0 H (10-20) Glucose 234 H (70-99(Fasting)) mg/dl POC Glucose (70-99) mg/dl Calcium 9.0 (8.5-10.1) mg/dl Phosphorus (2.5-4.9) mg/dl Magnesium (1.7-2.4) mg/dl Medications Administered Current Inpatient Medications Acetaminophen (Acetaminophen 325 Mg Tab) 650 mg PO Q4H PRN PRN Reason: Pain or Fever Stop: 10/13/22 03:09 Last Admin: 09/15/22 16:24 Dose: 650 mg Ascorbic Acid (Ascorbic Acid 500 Mg Tab) 250 mg PO [facility] Stop: 10/13/22 08:59 Last Admin: 09/17/22 08:11 Dose: 250 mg Atorvastatin Calcium (Atorvastatin 40 Mg Tab) [facility] Stop: 10/13/22 08:59 Last Admin: 09/17/22 08:11 Dose: 80 mg Cefuroxime Axetil (Cefuroxime Axetil 500 Mg Tab) 500 mg PO Q24H [facility] Stop: 09/23/22 12:59 Last Admin: 09/17/22 12:41 Dose: 500 mg Clopidogrel Bisulfate (Clopidogrel Bisulfate 75 Mg Tab) 75 mg PO [facility] Stop: 10/13/22 08:59 Last Admin: 09/17/22 08:11 Dose: 75 mg Dextrose (Dextrose 50% 50 Ml Syringe) 25 - 50 ml IV UD PRN; Protocol PRN Reason: Hypoglycemia Protocol Stop: 10/13/22 03:09 Ferrous Sulfate (Ferrous Sulfate 325 Mg Tab) 325 mg PO QAM [facility] Stop: 10/13/22 08:59 Last Admin: 09/17/22 08:11 Dose: 325 mg Fluticasone Propionate (Fluticasone Propionate Na Spr 16 Gm Btl) 2 sprays JAQUELIN DAILY [facility] Stop: 10/13/22 08:59 Last Admin: 09/17/22 08:12 Dose: 2 sprays Furosemide (Furosemide 40 Mg Tab) 40 mg PO BID17 [facility] Stop: 10/14/22 16:59 Last Admin: 09/17/22 17:34 Dose: 40 mg Gabapentin (Gabapentin 300 Mg Cap) 600 mg PO HS [facility] Stop: 10/13/22 03:09 Last Admin: 09/17/22 20:27 Dose: 600 mg Glucagon (Glucagon For Inj 1 Mg Vial) 1 mg SQ UD PRN; Protocol PRN Reason: Hypoglycemia Protocol Stop: 10/13/22 03:09 Glucose (Glucose 40% Gel 15 Gm Tube) 15 - 30 gm PO UD PRN; Protocol PRN Reason: Hypoglycemia Protocol Stop: 10/13/22 03:09 Glucose (Glucose 10 Tab/Tube) 4 - 8 tab PO UD PRN; Protocol PRN Reason: Hypoglycemia Treatment Stop: 10/13/22 03:09 Guaifenesin (Guaifenesin 600 Mg Tabcr) 600 mg PO Q12 [facility] Stop: 10/16/22 20:59 Last Admin: 09/17/22 20:27 Dose: 600 mg Insulin Aspart (Insulin Aspart Per Unit) 0 units SC ACHS [facility] Stop: 10/13/22 11:29 Last Admin: 09/17/22 20:18 Dose: 4 units Isosorbide Mononitrate (Isosorbide [place] Extended Rel 60 Mg Tabcr) 120 mg PO QAM [facility] Stop: 10/13/22 08:59 Last Admin: 09/17/22 08:11 Dose: 120 mg Latanoprost (Latanoprost 0.005% Op Soln 2.5 Ml Btl) 1 drops OPB HS [facility] Stop: 10/13/22 03:09 Last Admin: 09/17/22 20:27 Dose: 1 drops Levothyroxine Sodium (Levothyroxine Sodium 25 Mcg Tablet) 25 mcg PO DAILYBB [facility] Stop: 10/13/22 06:29 Last Admin: 09/18/22 05:56 Dose: 25 mcg Magnesium Oxide (Magnesium Oxide 400 Mg Tab) 400 mg PO AMHS [facility] Stop: 10/13/22 05:59 Last Admin: 09/17/22 20:27 Dose: 400 mg Melatonin (Melatonin 3 Mg Tab) 3 mg PO HS PRN PRN Reason: Sleep Stop: 10/13/22 21:59 Last Admin: 09/17/22 23:17 Dose: 3 mg Metoprolol Succinate (Metoprolol Succ 50mg Ext Rel Tab) 100 mg PO HS [facility] Stop: 10/13/22 03:09 Last Admin: 09/17/22 20:27 Dose: Not Given Metoprolol Succinate (Metoprolol Succ 50mg Ext Rel Tab) 150 mg PO QAM [facility] Stop: 10/13/22 08:59 Last Admin: 09/17/22 08:11 Dose: 150 mg Miscellaneous (Carbohydrates For Hypoglycemia ) 15 - 30 gm PO UD PRN PRN Reason: Hypoglycemia Protocol Stop: 10/13/22 03:09 Netarsudil (Netarsudil Mesylate 37 Drops/2.5 Ml Btl) 1 drops OPB HS [facility] Stop: 10/15/22 20:59 Last Admin: 09/17/22 20:27 Dose: 1 drops Nitroglycerin (Nitroglycerin Sl 0.4 Mg/Tab Tab) 0.4 mg SL PRN PRN PRN Reason: Chest Pain Stop: 10/17/22 03:19 Last Admin: 09/18/22 03:34 Dose: 0.4 mg Pantoprazole Sodium (Pantoprazole 40 Mg Tab) 40 mg PO QAM [facility] Stop: 10/13/22 08:59 Last Admin: 09/17/22 08:11 Dose: 40 mg Potassium Chloride (Potassium Chloride 10 Meq Tabcr) 10 meq PO BID [facility] Stop: 10/16/22 20:59 Last Admin: 09/17/22 08:12 Dose: 10 meq Prednisone (Prednisone 20 Mg Tab) 20 mg PO BID [facility] Stop: 10/16/22 12:44 Last Admin: 09/17/22 20:28 Dose: 20 mg Ropinirole HCl (Ropinirole Hcl 0.25 Mg Tablet) 0.25 mg PO HS [facility] Stop: 10/13/22 03:09 Last Admin: 09/17/22 20:28 Dose: 0.25 mg Sennosides (Senna 8.6 Mg Tab) 8.6 mg PO QAM [facility] Stop: 10/15/22 12:44 Last Admin: 09/17/22 08:12 Dose: 8.6 mg Sodium Zirconium Cyclosilicate (Sodium Zirconium Cyclosilicate 10 Gm Packet) 10 gm PO 0700,1500,2300 [facility] Stop: 09/18/22 23:01 Last Admin: 09/17/22 23:17 Dose: 10 gm Warfarin Sodium (Warfarin Sod 5 Mg Tab) 5 mg PO DAILY@1600 [facility] Stop: 10/13/22 15:59 Last Admin: 09/16/22 17:52 Dose: 5 mg
[2022-09-18] MEDS: SODIUM ZIRCONIUM CYCLOSILICATE 10 GM PACKET PO SCH (08:19)
[2022-09-18] MEDS: FERROUS SULFATE 325 MG TAB PO SCH (08:19)
[2022-09-18] MEDS: MAGNESIUM OXIDE 400 MG TAB PO SCH ×2 (08:19→20:15)
[2022-09-18] MEDS: guaiFENesin 600 MG TABCR PO SCH ×2 (08:19→20:13)
[2022-09-18] MEDS: ISOSORBIDE MONO EXTENDED REL 60 MG TABCR PO SCH (08:19)
[2022-09-18] MEDS: ASCORBIC ACID 500 MG TAB PO SCH (08:19)
[2022-09-18] MEDS: INSULIN ASPART PER UNIT SC SCH ×4 (08:19→20:17)
[2022-09-18] MEDS: FUROSEMIDE 40 MG TAB PO SCH (08:19)
[2022-09-18] MEDS: CLOPIDOGREL BISULFATE 75 MG TAB PO SCH (08:19)
[2022-09-18] MEDS: ATORVASTATIN 40 MG TAB PO SCH (08:19)
[2022-09-18] MEDS: predniSONE 20 MG TAB PO SCH ×2 (08:20→20:14)
[2022-09-18] MEDS: METOPROLOL SUCC 50MG EXT REL TAB PO SCH ×2 (08:20→20:12)
[2022-09-18] MEDS: FLUTICASONE PROPIONATE NA SPR 16 GM BTL NAE SCH (08:20)
[2022-09-18] MEDS: SENNA 8.6 MG TAB PO SCH (08:20)
[2022-09-18] MEDS: PANTOprazole 40 MG TAB PO SCH (08:20)
--- NOTE | 2022-09-18 10:40 | Cardiology Progress Note ---
Date of Service September 18, 2022 Assessment & Plan (1) Acute on chronic combined systolic and diastolic heart failure: (2) Hypoxia: (3) Pulmonary edema: (4) Troponin level elevated: (5) CKD (chronic kidney disease): (6) Angina pectoris: (7) CAD (coronary artery disease): Plan This is a complex patient and I refer you to my original consultation for details. She has severe coronary artery disease which is deemed medical management only. By history she has class III angina with minimal exertion. She is on a good dose of antianginal's including isosorbide mononitrate at 120 mg daily. She seems to be having breakthrough angina. Today I started her on Ranexa to see if we can improve her angina enough that she can do her ADLs. Admission and Anticipated Discharge Date Admission Date: September 12, 2022 Subjective The patient had angina and received 1 sublingual nitroglycerin last night and now this morning she had additional jaw discomfort and was given another sublingual nitroglycerin. Of note is that she is sitting in the chair and appears comfortable during this event. Review of Systems Review of Systems: Review of Systems: See HPI for pertinent positives. All other 10 point review of systems are negative. Physical Exam Physical Exam: General: no acute distress and stated age Head: normocephalic, no masses, lesions, tenderness or abnormalities Eyes: conjunctiva are pink and non-injected, sclera clear Neck: supple, no adenopathy, no bruits, normal jugular venous pulse, no hepatojugular reflux Chest: normal shape and normal respiratory effort Lungs: clear to auscultation and percussion Cardiac Exam: - regular rate & rhythm, no murmurs gallops or rubs - normal S1, normal S2 Pulses: 2(+) throughout Abdomen: abdomen soft, non-tender, no abnormal masses and no hepatosplenomegaly Musculoskeletal: no gait disturbance, no joint inflammation, no deforming arthritis Extremities: no edema and no cyanosis Neuro: grossly normal exam Results & Data ([facility]) Vital Signs (Past 12 Hours) Vital Signs Temp Pulse Pulse Pulse Resp BP Pulse Ox 09/18/22 09:58 09/18/22 08:10 36.7 C 87 20 100/76 100 09/18/22 02:55 37 C 74 16 143/70 H 99 09/18/22 00:03 77 09/17/22 22:55 36.6 C 74 17 101/46 L 99 O2 Del Method O2 Flow Rate 09/18/22 09:58 Nasal Cannula 2 09/18/22 08:10 Nasal Cannula 2 09/18/22 02:55 Nasal Cannula 2 09/18/22 00:03 09/17/22 22:55 Nasal Cannula 2 Laboratory Results Laboratory Results - last 24 hr 09/17/22 09/17/22 09/17/22 11:13 16:07 16:19 PT INR Sodium 136 Potassium 5.3 H Chloride 93 L Carbon Dioxide 38 H Anion Gap 5 BUN 53 H Creatinine 1.56 H Est Cr Clr Drug Dosing 27.0 Est GFR ( Amer) 35.5 Est GFR (Non-Af Amer) 30.6 BUN/Creatinine Ratio 34.0 H Glucose 234 H POC Glucose 225 H 290 H Calcium 9.0 Phosphorus Magnesium 09/17/22 09/18/22 09/18/22 20:16 05:17 05:17 PT 39.8 H INR 4.0 H Sodium 139 Potassium 4.4 Chloride 95 L Carbon Dioxide 38 H Anion Gap 6 BUN 53 H Creatinine 1.48 H Est Cr Clr Drug Dosing 28.4 Est GFR ( Amer) 37.8 Est GFR (Non-Af Amer) 32.6 BUN/Creatinine Ratio 35.8 H Glucose 175 H POC Glucose 243 H Calcium 9.2 Phosphorus 4.2 D Magnesium 2.2 09/18/22 07:16 PT INR Sodium Potassium Chloride Carbon Dioxide Anion Gap BUN Creatinine Est Cr Clr Drug Dosing Est GFR ( Amer) Est GFR (Non-Af Amer) BUN/Creatinine Ratio Glucose POC Glucose 182 H Calcium Phosphorus Magnesium Medications Administered Current Inpatient Medications Acetaminophen (Acetaminophen 325 Mg Tab) 650 mg PO Q4H PRN PRN Reason: Pain or Fever Stop: 10/13/22 03:09 Last Admin: 09/15/22 16:24 Dose: 650 mg Ascorbic Acid (Ascorbic Acid 500 Mg Tab) [facility] Stop: 10/13/22 08:59 Last Admin: 09/18/22 08:19 Dose: 250 mg Atorvastatin Calcium (Atorvastatin 40 Mg Tab) 80 [facility] [place] Stop: 10/13/22 08:59 Last Admin: 09/18/22 08:19 Dose: 80 mg Cefuroxime Axetil (Cefuroxime Axetil 500 Mg Tab) 500 mg PO Q24H [facility] Stop: 09/23/22 12:59 Last Admin: 09/17/22 12:41 Dose: 500 mg Clopidogrel Bisulfate (Clopidogrel Bisulfate 75 Mg Tab) 75 mg PO QAM [facility] Stop: 10/13/22 08:59 Last Admin: 09/18/22 08:19 Dose: 75 mg Dextrose (Dextrose 50% 50 Ml Syringe) 25 - 50 ml IV UD PRN; Protocol PRN Reason: Hypoglycemia Protocol Stop: 10/13/22 03:09 Ferrous Sulfate (Ferrous Sulfate 325 Mg Tab) 325 mg PO QAM [facility] Stop: 10/13/22 08:59 Last Admin: 09/18/22 08:19 Dose: 325 mg Fluticasone Propionate (Fluticasone Propionate Na Spr 16 Gm Btl) 2 sprays JAQUELIN DAILY [facility] Stop: 10/13/22 08:59 Last Admin: 09/18/22 08:20 Dose: 2 sprays Gabapentin (Gabapentin 300 Mg Cap) 600 mg PO HS [facility] Stop: 10/13/22 03:09 Last Admin: 09/17/22 20:27 Dose: 600 mg Glucagon (Glucagon For Inj 1 Mg Vial) 1 mg SQ UD PRN; Protocol PRN Reason: Hypoglycemia Protocol Stop: 10/13/22 03:09 Glucose (Glucose 40% Gel 15 Gm Tube) 15 - 30 gm PO UD PRN; Protocol PRN Reason: Hypoglycemia Protocol Stop: 10/13/22 03:09 Glucose (Glucose 10 Tab/Tube) 4 - 8 tab PO UD PRN; Protocol PRN Reason: Hypoglycemia Treatment Stop: 10/13/22 03:09 Guaifenesin (Guaifenesin 600 Mg Tabcr) 600 mg PO Q12 [facility] Stop: 10/16/22 20:59 Last Admin: 09/18/22 08:19 Dose: 600 mg Insulin Aspart (Insulin Aspart Per Unit) 0 units SC ACHS [facility] Stop: 10/13/22 11:29 Last Admin: 09/18/22 08:19 Dose: 7 units Isosorbide Mononitrate (Isosorbide [place] Extended Rel 60 Mg Tabcr) 120 mg PO QAM [facility] Stop: 10/13/22 08:59 Last Admin: 09/18/22 08:19 Dose: 120 mg Latanoprost (Latanoprost 0.005% Op Soln 2.5 Ml Btl) 1 drops OPB [facility] Stop: 10/13/22 03:09 Last Admin: 09/17/22 20:27 Dose: 1 drops Levothyroxine Sodium (Levothyroxine Sodium 25 Mcg Tablet) 25 mcg PO DAILYBB [facility] Stop: 10/13/22 06:29 Last Admin: 09/18/22 05:56 Dose: 25 mcg Magnesium Oxide (Magnesium Oxide 400 Mg Tab) 400 mg PO AMHS [facility] Stop: 10/13/22 05:59 Last Admin: 09/18/22 08:19 Dose: 400 mg Melatonin (Melatonin 3 Mg Tab) 3 mg PO HS PRN PRN Reason: Sleep Stop: 10/13/22 21:59 Last Admin: 09/17/22 23:17 Dose: 3 mg Metoprolol Succinate (Metoprolol Succ 50mg Ext Rel Tab) 100 mg PO HS [facility] Stop: 10/13/22 03:09 Last Admin: 09/17/22 20:27 Dose: Not Given Metoprolol Succinate (Metoprolol Succ 50mg Ext Rel Tab) 150 mg PO QAM [facility] Stop: 10/13/22 08:59 Last Admin: 09/18/22 08:20 Dose: 150 mg Miscellaneous (Carbohydrates For Hypoglycemia ) 15 - 30 gm PO UD PRN PRN Reason: Hypoglycemia Protocol Stop: 10/13/22 03:09 Netarsudil (Netarsudil Mesylate 37 Drops/2.5 Ml Btl) 1 drops OPB [facility] Stop: 10/15/22 20:59 Last Admin: 09/17/22 20:27 Dose: 1 drops Nitroglycerin (Nitroglycerin Sl 0.4 Mg/Tab Tab) 0.4 mg SL PRN PRN PRN Reason: Chest Pain Stop: 10/17/22 03:19 Last Admin: 09/18/22 10:27 Dose: 0.4 mg Pantoprazole Sodium (Pantoprazole 40 Mg Tab) 40 mg PO QAM [facility] Stop: 10/13/22 08:59 Last Admin: 09/18/22 08:20 Dose: 40 mg Potassium Chloride (Potassium Chloride 10 Meq Tabcr) 10 meq PO BID [facility] Stop: 10/16/22 20:59 Last Admin: 09/17/22 08:12 Dose: 10 meq Prednisone (Prednisone 20 Mg Tab) 20 mg PO BID [facility] Stop: 10/16/22 12:44 Last Admin: 09/18/22 08:20 Dose: 20 mg Ranolazine (Ranolazine 500 Mg Er Tab) 500 mg PO BID [facility] Stop: 10/18/22 10:44 Ropinirole HCl (Ropinirole Hcl 0.25 Mg Tablet) 0.25 mg PO HS [facility] Stop: 10/13/22 03:09 Last Admin: 09/17/22 20:28 Dose: 0.25 mg Sennosides (Senna 8.6 Mg Tab) 8.6 mg PO QAM [facility] Stop: 10/15/22 12:44 Last Admin: 09/18/22 08:20 Dose: 8.6 mg Sodium Zirconium Cyclosilicate (Sodium Zirconium Cyclosilicate 10 Gm Packet) 10 gm PO 0700,1500,2300 [facility] Stop: 09/18/22 23:01 Last Admin: 09/18/22 08:19 Dose: 10 gm Torsemide (Torsemide 10 Mg Tab) 20 mg PO BID17 [facility] Stop: 10/18/22 16:59 Warfarin Sodium (Warfarin Sod 5 Mg Tab) 5 mg PO DAILY@1600 [facility] Stop: 10/13/22 15:59 Last Admin: 09/16/22 17:52 Dose: 5 mg (1) Pulmonary edema Chronicity: acute Qualified Code(s): J81.0 - Acute pulmonary edema
[2022-09-18] MEDS: RANOLAZINE 500 MG ER TAB PO SCH ×3 (10:49→20:15)
[2022-09-18] MEDS: cefUROXime axetil 500 MG TAB PO SCH (12:05)
[2022-09-18] MEDS: TORSEMIDE 10 MG TAB PO SCH (17:32)
[2022-09-18] MEDS: NETARSUDIL MESYLATE 37 DROPS/2.5 ML BTL OPB SCH (20:09)
[2022-09-18] MEDS: LATANOPROST 0.005% OP SOLN 2.5 ML BTL OPB SCH (20:10)
[2022-09-18] MEDS: GABAPENTIN 300 MG CAP PO SCH (20:14)
[2022-09-18] MEDS: rOPINIRole HCL 0.25 MG TABLET PO SCH (20:14)
[2022-09-19] MEDS: LEVOTHYROXINE SODIUM 25 MCG TABLET PO SCH (05:32)
[2022-09-19 07:19] LABS: INR 2.4 (0.9-1.1); Prothrombin Time 24.7 Seconds (9.0-12.0)
[2022-09-19 07:27] LABS: Calcium 9.4 mg/dl (8.5-10.1); Creatinine Clr Calc Pharmacy 30.5 ml/min; Est GFR (African American) 41.2 ml/min; Est GFR (Non-African American) 35.5 ml/min; Phosphorus 4.3 mg/dl (2.5-4.9)
[2022-09-19] MEDS: cefTRIAXone SODIUM 1,000 MG in DEXTROSE 5% AD-VAN 50 ML IV SCH (07:45)
--- NOTE | 2022-09-19 08:13 | Hospitalist Progress Note ---
Date of Service September 19, 2022 Assessment & Plan (1) Acute on chronic combined systolic and diastolic heart failure: Plan: 82 y/o female with complex PMH including acute on chronic HFrEF with diastolic dysfunction, CAD w/ class 3-4 angina, PAF, tachy-tanner syndrome s/p PPM placement, aortic stenosis s/p TAVR, chronic AC, mitral stenosis, pulmonary HTN, DM2 with neuropathy, carotid stenosis s/o bilateral carotid endarterectomies, PVD, HTN, hypothyroidism, hyperlipidemia, GERD, chronic laryngospasm, RLS, glaucoma, and depression who presented today with progressive weakness and worsening respiratory status. Found to by hypoxic on presentation with a pulseox in the 70s, has responded to supplemental O2. Clinical picture c/w acute decompensation of chronic HFrEF with resultant hypoxia. Also noted to have an MARY, likely related to more aggressive diuretic regimen outpatient. Troponin noted to be elevated, likely due to demand ischemic from known CAD with class 4 angina, worsened by hypoxia, and current MARY., and UTI. repeat CXR: similar to previous 1. Cardiomegaly with unchanged pulmonary edema. 2. Stable left greater than right pleural effusions and mild bibasilar consolidation. Chest US: Limited exam secondary to lack of patient cooperation. Bilateral pleural effusions are redemonstrated. The right pleural effusion demonstrates a volume of approximately 174 mL. The left pleural effusion demonstrates a volume of approximately 279 mL. Echo: EF 35-40%, grade 3 Diastolic Dysfunction, otherwise unchanged compared to 06/2022 remains on 2 L nasal cannula crea 2.0 --> 1.8 -> 1.5 Switched from Lasix 40mg IV BID -> PO lasix (09/14/22) - switched to torsemide - plan to likely add spironolactone - discussing w/ cardiology and nephrology given hx of htperkalemia (previously on K supplement) Continued to have chest pain with ADLs - started on Ranexa by cardiology (09/18/22) -currently patient feels improved, however she was tried on this medication previously and was not tolerant of it. Therefore,ranexa will be stopped and patient will be on Nitropatch again however increased dose. Nephrology and Cardiology following UTI urine culture: E.coli, pansensitive empiric Ceftriaxone 1g IV daily - switched to PO Abx Ankle pain / poss. gout flare - discussed w/ nephrology - given renal function, steroids preferred - started prednisone - pt denies any more ankle pain - will dc now (2) Hypoxia: Plan: secondary to above wean off oxygen accordingly 2 step obtained - needs 2L cont. (3) MARY (acute kidney injury): Plan: cardiorenal syndrome? [employer] consulted management per above (4) Acute hyperkalemia: Plan: 5.2 --> 4.1 -> 3.9 ->4.7 -> 5.9 -> 4.4 - stopped potassium supplement - gave lokelma - cont. to monitor K level (5) Chronic anticoagulation: Plan: INR 3.8 hold coumadin (6) Angina pectoris: Plan: medically managed inoperable CAD lesions per last Cardiac cath continue usual NitroDur patch, Imdur, Metoprolol management per Cardiology service (7) ASCVD (arteriosclerotic cardiovascular disease): (8) Diabetes mellitus, type 2: Plan: Holding outpatient regimen. A1c 07/13/22 was 8.3% - Sliding scale insulin - Diabetic diet, BSG ACHS (9) Diabetic neuropathy: Plan: Continue gabapentin (10) GERD (gastroesophageal reflux disease): Plan: Continue PPI therapy (11) Hyperlipidemia: Plan: Continue statin (12) Hypertension: (13) Glaucoma: Plan Code Status: Full Code DVT Prophylaxis: on chronic warfarin Disposition - patient's daughter prefers patient to transition to SNF Admission and Anticipated Discharge Date Admission Date: September 12, 2022 Subjective Pt seen in follow up for acute on chronic systolic CHF exacerbation, MARY, UTI seen sitting up in chair this AM, comfortable, in NAD She was started on Ranexa yesterday by cardiology, and reports feeling better/no chest pain episodes However she was tried on medication before and was not tolerant of it/had dizziness Currently not stopping medication, and starting Nitropatch again on suppl. O2 via NC Currently no chest pain, dyspnea, palpitations, dizziness while at rest no cough, fever/chills no other symptoms Cardiology/nephrology following. Review of Systems Review of Systems: All systems reviewed & are unremarkable except as noted in Subjective Physical Exam Physical Exam: General- oriented x 3, not in distress, speaks in sentences with no effort or accessory muscle use, on 2 L O2 via NC Eyes- anicteric Neck- no JVD Lungs- mild rales at the bases Heart- normal rate, regular rhythm; no murmurs Abdomen- normal bowel sounds, nondistended, soft, nontender Extremities- mild pretibial edema, no calf tenderness Neuro- alert, oriented x 3; no gross focal neurologic deficits Skin- warm & dry Results & Data Results & Data ([facility]) Vital Signs (Past 12 Hours) Vital Signs Temp Pulse Pulse Pulse Resp BP Pulse Ox 09/19/22 07:22 36.5 C 75 14 131/72 100 09/19/22 02:48 36.5 C 73 14 96/50 L 100 09/18/22 23:21 72 09/18/22 23:10 36.4 C L 71 17 131/67 99 09/18/22 20:10 36.7 C 75 17 105/59 L 99 O2 Del Method O2 Flow Rate 09/19/22 07:22 Nasal Cannula 2 09/19/22 02:48 Nasal Cannula 2 09/18/22 23:21 09/18/22 23:10 Nasal Cannula 2 09/18/22 20:10 Nasal Cannula 2 Laboratory Results 09/19/22 09/19/22 09/19/22 Range/Units 07:07 06:55 06:55 PT 24.7 H (9.0-12.0) Seconds INR 2.4 H (0.9-1.1) Sodium 140 (136-145) mmol/L Potassium 4.0 (3.5-5.1) mmol/L Chloride 95 L (98-107) mmol/L Carbon Dioxide 39 H (21-32) mmol/L Anion Gap 6 (3-11) BUN 58 H (6-23) mg/dl Creatinine 1.38 H (0.6-1.2) mg/dl Est Cr Clr Drug Dosing 30.5 ml/min Est GFR ( Amer) 41.2 ml/min Est GFR (Non-Af Amer) 35.5 ml/min BUN/Creatinine Ratio 42.0 H (10-20) Glucose 234 H (70-99(Fasting)) mg/dl POC Glucose 220 H (70-99) mg/dl Calcium 9.4 (8.5-10.1) mg/dl Phosphorus 4.3 (2.5-4.9) mg/dl Magnesium 2.0 (1.7-2.4) mg/dl 09/18/22 09/18/22 09/18/22 Range/Units 20:06 16:12 10:55 PT (9.0-12.0) Seconds INR (0.9-1.1) Sodium (136-145) mmol/L Potassium (3.5-5.1) mmol/L Chloride (98-107) mmol/L Carbon Dioxide (21-32) mmol/L Anion Gap (3-11) BUN (6-23) mg/dl Creatinine (0.6-1.2) mg/dl Est Cr Clr Drug Dosing ml/min Est GFR ( Amer) ml/min Est GFR (Non-Af Amer) ml/min BUN/Creatinine Ratio (10-20) Glucose (70-99(Fasting)) mg/dl POC Glucose 284 H 268 H 274 H (70-99) mg/dl Calcium (8.5-10.1) mg/dl Phosphorus (2.5-4.9) mg/dl Magnesium (1.7-2.4) mg/dl Medications Administered Current Inpatient Medications Acetaminophen (Acetaminophen 325 Mg Tab) 650 mg PO Q4H PRN PRN Reason: Pain or Fever Stop: 10/13/22 03:09 Last Admin: 09/15/22 16:24 Dose: 650 mg Ascorbic Acid (Ascorbic Acid 500 Mg Tab) [facility] [place] Stop: 10/13/22 08:59 Last Admin: 09/18/22 08:19 Dose: 250 mg Atorvastatin Calcium (Atorvastatin 40 Mg Tab) 80 mg PO QAM [facility] Stop: 10/13/22 08:59 Last Admin: 09/18/22 08:19 Dose: 80 mg Cefuroxime Axetil (Cefuroxime Axetil 500 Mg Tab) 500 mg PO Q24H [facility] Stop: 09/23/22 12:59 Last Admin: 09/18/22 12:05 Dose: 500 mg Clopidogrel Bisulfate (Clopidogrel Bisulfate 75 Mg Tab) 75 mg PO QAM [facility] Stop: 10/13/22 08:59 Last Admin: 09/18/22 08:19 Dose: 75 mg Dextrose (Dextrose 50% 50 Ml Syringe) 25 - 50 ml IV UD PRN; Protocol PRN Reason: Hypoglycemia Protocol Stop: 10/13/22 03:09 Ferrous Sulfate (Ferrous Sulfate 325 Mg Tab) 325 [facility] [place] Stop: 10/13/22 08:59 Last Admin: 09/18/22 08:19 Dose: 325 mg Fluticasone Propionate (Fluticasone Propionate Na Spr 16 Gm Btl) 2 sprays JAQUELIN DAILY [facility] Stop: 10/13/22 08:59 Last Admin: 09/18/22 08:20 Dose: 2 sprays Gabapentin (Gabapentin 300 Mg Cap) 600 mg PO HS [facility] Stop: 10/13/22 03:09 Last Admin: 09/18/22 20:14 Dose: 600 mg Glucagon (Glucagon For Inj 1 Mg Vial) 1 mg SQ UD PRN; Protocol PRN Reason: Hypoglycemia Protocol Stop: 10/13/22 03:09 Glucose (Glucose 40% Gel 15 Gm Tube) 15 - 30 gm PO UD PRN; Protocol PRN Reason: Hypoglycemia Protocol Stop: 10/13/22 03:09 Glucose (Glucose 10 Tab/Tube) 4 - 8 tab PO UD PRN; Protocol PRN Reason: Hypoglycemia Treatment Stop: 10/13/22 03:09 Guaifenesin (Guaifenesin 600 Mg Tabcr) 600 mg PO Q12 [facility] Stop: 10/16/22 20:59 Last Admin: 09/18/22 20:13 Dose: 600 mg Insulin Aspart (Insulin Aspart Per Unit) 0 units SC ACHS [facility] Stop: 10/13/22 11:29 Last Admin: 09/18/22 20:17 Dose: 7 units Isosorbide Mononitrate (Isosorbide [place] Extended Rel 60 Mg Tabcr) 120 mg PO QAM [facility] Stop: 10/13/22 08:59 Last Admin: 09/18/22 08:19 Dose: 120 mg Latanoprost (Latanoprost 0.005% Op Soln 2.5 Ml Btl) 1 drops OPB HS [facility] Stop: 10/13/22 03:09 Last Admin: 09/18/22 20:10 Dose: 1 drops Levothyroxine Sodium (Levothyroxine Sodium 25 Mcg Tablet) 25 mcg PO DAILYBB [facility] Stop: 10/13/22 06:29 Last Admin: 09/19/22 05:32 Dose: 25 mcg Magnesium Oxide (Magnesium Oxide 400 Mg Tab) 400 mg PO AMHS [facility] Stop: 10/13/22 05:59 Last Admin: 09/18/22 20:15 Dose: 400 mg Melatonin (Melatonin 3 Mg Tab) 3 mg PO HS PRN PRN Reason: Sleep Stop: 10/13/22 21:59 Last Admin: 09/17/22 23:17 Dose: 3 mg Metoprolol Succinate (Metoprolol Succ 50mg Ext Rel Tab) 100 mg PO [facility] Stop: 10/13/22 03:09 Last Admin: 09/18/22 20:12 Dose: 100 mg Metoprolol Succinate (Metoprolol Succ 50mg Ext Rel Tab) 150 mg PO QAM [facility] Stop: 10/13/22 08:59 Last Admin: 09/18/22 08:20 Dose: 150 mg Miscellaneous (Carbohydrates For Hypoglycemia ) 15 - 30 gm PO UD PRN PRN Reason: Hypoglycemia Protocol Stop: 10/13/22 03:09 Netarsudil (Netarsudil Mesylate 37 Drops/2.5 Ml Btl) 1 drops OPB [facility] Stop: 10/15/22 20:59 Last Admin: 09/18/22 20:09 Dose: 1 drops Nitroglycerin (Nitroglycerin Sl 0.4 Mg/Tab Tab) 0.4 mg SL PRN PRN PRN Reason: Chest Pain Stop: 10/17/22 03:19 Last Admin: 09/18/22 10:27 Dose: 0.4 mg Pantoprazole Sodium (Pantoprazole 40 Mg Tab) 40 mg PO [facility] Stop: 10/13/22 08:59 Last Admin: 09/18/22 08:20 Dose: 40 mg Potassium Chloride (Potassium Chloride 10 Meq Tabcr) 10 meq PO BID [facility] Stop: 10/16/22 20:59 Last Admin: 09/17/22 08:12 Dose: 10 meq Prednisone (Prednisone 20 Mg Tab) 20 mg PO BID [facility] Stop: 10/16/22 12:44 Last Admin: 09/18/22 20:14 Dose: 20 mg Ranolazine (Ranolazine 500 Mg Er Tab) 500 mg PO BID [facility] Stop: 10/18/22 10:44 Last Admin: 09/18/22 20:15 Dose: 500 mg Ropinirole HCl (Ropinirole Hcl 0.25 Mg Tablet) 0.25 mg PO [facility] Stop: 10/13/22 03:09 Last Admin: 09/18/22 20:14 Dose: 0.25 mg Sennosides (Senna 8.6 Mg Tab) 8.6 [facility] [place] Stop: 10/15/22 12:44 Last Admin: 09/18/22 08:20 Dose: 8.6 mg Torsemide (Torsemide 10 Mg Tab) 20 mg PO BID17 [facility] Stop: 10/18/22 16:59 Last Admin: 09/18/22 17:32 Dose: 20 mg Warfarin Sodium (Warfarin Sod 5 Mg Tab) 5 mg PO DAILY@1600 [facility] Stop: 10/13/22 15:59 Last Admin: 09/16/22 17:52 Dose: 5 mg
[2022-09-19] MEDS: ATORVASTATIN 40 MG TAB PO SCH (08:19)
[2022-09-19] MEDS: METOPROLOL SUCC 50MG EXT REL TAB PO SCH ×2 (08:19→20:15)
[2022-09-19] MEDS: FERROUS SULFATE 325 MG TAB PO SCH (08:21)
[2022-09-19] MEDS: CLOPIDOGREL BISULFATE 75 MG TAB PO SCH (08:21)
[2022-09-19] MEDS: ASCORBIC ACID 500 MG TAB PO SCH (08:21)
[2022-09-19] MEDS: predniSONE 20 MG TAB PO SCH (08:21)
[2022-09-19] MEDS: PANTOprazole 40 MG TAB PO SCH (08:21)
[2022-09-19] MEDS: TORSEMIDE 10 MG TAB PO SCH ×2 (08:21→17:06)
[2022-09-19] MEDS: MAGNESIUM OXIDE 400 MG TAB PO SCH ×2 (08:22→20:13)
[2022-09-19] MEDS: ISOSORBIDE MONO EXTENDED REL 60 MG TABCR PO SCH (08:22)
[2022-09-19] MEDS: FLUTICASONE PROPIONATE NA SPR 16 GM BTL NAE SCH (08:22)
[2022-09-19] MEDS: guaiFENesin 600 MG TABCR PO SCH ×2 (08:22→20:11)
[2022-09-19] MEDS: SENNA 8.6 MG TAB PO SCH (08:33)
[2022-09-19] MEDS: INSULIN ASPART PER UNIT SC SCH ×4 (08:38→20:19)
--- NOTE | 2022-09-19 09:15 | Cardiology Progress Note ---
Date of Service September 19, 2022 Assessment & Plan (1) Acute on chronic combined systolic and diastolic heart failure: (2) Hypoxia: (3) Pulmonary edema: (4) Troponin level elevated: (5) CKD (chronic kidney disease): (6) Angina pectoris: (7) CAD (coronary artery disease): Plan 1. ASACVD. Inoperable coronary artery disease. CCS Class III+ angina pectoris. Poor tolerance to Ranexa 2. Systolic and diastolic congestive heart failure. Moderate reduction in systolic function, EF 35-40% via 06/2022 TTE. NYHA Class III. Volume status: Hypervolemic, with bilateral pleural effusions. 3. Paroxysmal atrial fibrillation with a rapid ventricular response first documented while hospitalized at [facility] in November 2020, highly symptomatic, significant angina symptoms 4. 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 5. Severe aortic valve stenosis status post February 26, 2019 TAVR with a #23 mm Najera Sade S3 Valve on 02/26/2019. 6. Calcific mitral stenosis, moderate or greater. 7. Carotid occlusive disease. Status post left carotid endarterectomy in 05/2013. Status post June 2016 right carotid endarterectomy by Dr. Jose. 8. Chronic obstructive and restrictive pulmonary disease, asthma 9. Hypertension. 10. Hyperlipidemia. 11. Chronic laryngospasm 12. Diabetes mellitus with neuropathy. Discontinue Ranexa Add Nitro-Dur patch, 0.4 mg/hr. Continue Isosorbide PA and lateral chest x-ray today ? trial of low dose spironolactone (currently requiring supplemental potassium though with history of hyperkalemia with past use of low dose ACEI) Future considerations: Titration of metoprolol and/or the addition of low dose amlodipine if BP allows, renally dosed digoxin for the HFrEF Admission and Anticipated Discharge Date Admission Date: September 12, 2022 Supervising Physician Co-Signing Physician Notes I reviewed the medical record and examined the patient. I have discussed the case with Kelsey who actually follows the patient as an outpatient. Several weeks ago she was tried on Ranexa and developed an intolerance due to dizziness and this medication was stopped and his is listed as an allergy. Also according to Thaddeus she did find some relief with a combination of Imdur and her patch for her angina at least as an outpatient. So I agree that since she continues to have recurrent angina that we can try to combination of isosorbide mononitrate and a nitro Dur patch. I am plus minus on the spironolactone due to the hyperkalemia recently while on potassium supplements. Nephrology is still following and maybe they can have some input. Subjective Patient seen and examined. Chart, medications, and telemetry reviewed. Concerned about the retrial of Ranexa. Tried x 2 with intolerable side effects. + Chest pain aided by sublingual nitroglycerin. Slept in the chair. "I can't lay in bed. I get so short on breath." + Increased peripheral edema. No palpitations. No lightheadedness, dizziness, near syncope, or syncope. No fevers or chills. Telemetry: Ventricular paced in the 70's-80's. Review of Systems Review of Systems: Complete Review of Systems is as stated above, negative, or noncontributory. Physical Exam Physical Exam: General: A&Ox3. NAD. HENT: Normocephalic. Atraumatic. Eyes: PER. Conjunctiva pink, sclera clear. Neck: No carotid bruits. JVD. Heart: RRR, 80 bpm. Systolic murmur. No diastolic murmur. No rub. Lungs: Absent breath sound 1/3 up bilaterally. Abdomen: +BS. Soft. Nontender. No masses or organomegaly. Extremities: 1+ edema. No clubbing. No cyanosis. Limited neurological examination is without focal deficits. Pulses: radial=2/4, posterior tibial=1/4. Results & Data ([facility]) Vital Signs (Past 12 Hours) Vital Signs Temp Pulse Pulse Pulse Resp BP Pulse Ox 09/19/22 07:22 36.5 C 75 14 131/72 100 09/19/22 02:48 36.5 C 73 14 96/50 L 100 09/18/22 23:21 72 09/18/22 23:10 36.4 C L 71 17 131/67 99 O2 Del Method O2 Flow Rate 09/19/22 07:22 Nasal Cannula 2 09/19/22 02:48 Nasal Cannula 2 09/18/22 23:21 09/18/22 23:10 Nasal Cannula 2 Laboratory Results Coagulation 09/19/22 Range/Units 06:55 PT 24.7 H (9.0-12.0) Seconds Comprehensive Metabolic Panel 09/19/22 Range/Units 06:55 Sodium 140 (136-145) mmol/L Potassium 4.0 (3.5-5.1) mmol/L Chloride 95 L (98-107) mmol/L Carbon Dioxide 39 H (21-32) mmol/L BUN 58 H (6-23) mg/dl Creatinine 1.38 H (0.6-1.2) mg/dl Glucose 234 H (70-99(Fasting)) mg/dl Calcium 9.4 (8.5-10.1) mg/dl Intake and Output 09/18/22 09/19/22 09/19/22 22:59 06:59 14:59 Output Total 200 / 1100 700 / 1100 Balance -200 / -1100 -700 / -1100 Output: Urine 200 / 1100 700 / 1100 Other: Weight Measurement Method Built in [facility] (1) Pulmonary edema Chronicity: acute Qualified Code(s): J81.0 - Acute pulmonary edema
--- NOTE | 2022-09-19 10:51 | Nephrology Progress Note ---
Date of Service September 19, 2022 Assessment & Plan Admission and Anticipated Discharge Date Admission Date: September 12, 2022 Subjective Assessment & Plan (1) MARY (acute kidney injury): Plan: MARY w/ again further improved creatinine this am compared to arrival > ischemic ATN d/t obligate diuretics to manage heart failure; given her obligate diuretic needs which are generally/subacutely increasing, suspect she will never again have normal renal function for long and that some of this admission will involve establishing new baseline renal function. her prior baseline in July had been 1.1-1.2 and high ones in August. Rec: 1 Dr Hamilton Asked me to give opinion regarding aldactone use. She had high K on admission with ARF/ATN/ concomitant K supplement. has not got any k supplement since admission and K is normal currently. Creat still improving. I dont see why she cannot take Aldactone eventually. However will like to see her K as outpt with her home diet. Continue Current Diuretics and if K and Creat remains stable outpt she can be on Aldactone without K supplement. Bicarb is high but that is physiological compensation to account for her underly ing Lung Disease. her last ABG still showed Acidosis with ph of 7.33 so Do not give Diamox. her bicarb level should remain high Subjective seen on rounds at 0650; endorses confusion overnight. some angina w/ getting up to void. else no c/o including no c/o ankle pain Review of Systems Review of Systems: All systems reviewed & are unremarkable except as noted in Subjective Physical Exam Constitutional: well developed, well nourished, + frail appearing and cooperative; no acute distress Eyes: EOM intact bilaterally ENMT: Ears: no external ear abnormality Nose: no external nose abnormality Mouth: + dry oral mucous membranes Neck: no nuchal rigidity Respiratory: normal respiratory effort (while sitting in bed), + cough, able to speak in complete sentences and + paradoxical thoraco-abdominal movement; no labored breathing Auscultation: + diminished lung sounds and + crackles (throughout lower posterior mello) Cardiovascular: Rate/Rhythm: regular rate and regular rhythm Extremities: + edema (trace) Gastrointestinal (Abdomen): Inspection/Auscultation: normal bowel sounds Percussion/Palpation: abdomen soft; abdomen nontender Musculoskeletal: Extremities: strength 5/5 throughout Skin:L no rashes, warm and dry Neurologic: randall, fluent speech, no tremor Psychiatric: Orientation: oriented x 3 Genitourinary: ruiz out Results & Data ([facility]) Vital Signs (Past 12 Hours) Vital Signs Temp Pulse Pulse Pulse Resp BP Pulse Ox 09/19/22 07:22 36.5 C 75 14 131/72 100 09/19/22 02:48 36.5 C 73 14 96/50 L 100 09/18/22 23:21 72 09/18/22 23:10 36.4 C L 71 17 131/67 99 O2 Del Method O2 Flow Rate 09/19/22 07:22 Nasal Cannula 2 09/19/22 02:48 Nasal Cannula 2 09/18/22 23:21 09/18/22 23:10 Nasal Cannula 2
--- NOTE | 2022-09-19 11:05 | XRay Report ---
XR chest 2V PA/lateral CLINICAL HISTORY: chf. pleural effusions by exam TECHNIQUE: 2 views of the chest were obtained. Comparison: Comparison is made to chest radiograph 09/16/2022 FINDINGS: Dual lead pacemaker is seen. Cardiomegaly is noted. Valvular prosthesis is again seen. Airspace opaci ties in the lower lungs likely represent atelectasis. Moderate bilateral pleural effusions are slight ly increased from prior exam. IMPRESSION: 1. There are moderate bilateral pleural effusions, somewhat increased from the prior exam. 2. Airspace opacities compatible with atelectasis, superimposed pneumonia/aspiration cannot be entir kimberly excluded. 3. Stable cardiac megaly. ACT 112: Negative or not required by law. Electronically signed by: Chandler Viera M.D. 09/19/2022 11:04 AM
[2022-09-19] MEDS: NITROGLYCERIN 0.4 MG/HR PATCH TD SCH (11:24)
[2022-09-19] MEDS: cefUROXime axetil 500 MG TAB PO SCH ×2 (13:02→20:10)
[2022-09-19] MEDS: ADVANCED PROBIOTIC 1250 MG CAPSULE PO SCH (13:15)
[2022-09-19] MEDS: GABAPENTIN 300 MG CAP PO SCH (20:10)
[2022-09-19] MEDS: LATANOPROST 0.005% OP SOLN 2.5 ML BTL OPB SCH (20:12)
[2022-09-19] MEDS: rOPINIRole HCL 0.25 MG TABLET PO SCH (20:14)
[2022-09-19] MEDS: NETARSUDIL MESYLATE 37 DROPS/2.5 ML BTL OPB SCH (20:14)
[2022-09-19] MEDS ORDERED: INSULIN HUMAN REGULAR PER UNIT 4 UNITS in SYRINGE 3.96 ML IV ONE (20:45)
[2022-09-19] MEDS: MELATONIN 3 MG TAB PO PRN (22:17)
[2022-09-20] MEDS: LEVOTHYROXINE SODIUM 25 MCG TABLET PO SCH (06:08)
[2022-09-20 06:46] LABS: Hemoglobin 10.4 g/dl (12.0-16.0); Mean Corpuscular Hemoglobin 30.1 pg (25.0-34.0); Mean Corpuscular Hgb Conc 32.5 g/dL (32.0-36.0); Mean Corpuscular Volume 92.5 fL (80.0-100.0); Mean Platelet Volume 10.4 fL (9.4-12.3); Platelet Count 293 K/uL (130-400); RDW Coefficient of Variation 14.6 % (11.5-14.5); RDW Standard Deviation 49.1 fL (36.4-46.3); Red Blood Count 3.46 M/uL (3.93-5.22); White Blood Count 8.09 K/ul (4.8-10.8)
[2022-09-20 06:55] LABS: INR 1.8 (0.9-1.1); Prothrombin Time 18.7 Seconds (9.0-12.0)
[2022-09-20 07:44] LABS: BUN Creatinine Ratio 37.9 (10-20); Calcium 9.6 mg/dl (8.5-10.1); Creatinine Clr Calc Pharmacy 26.1 ml/min; Est GFR (African American) 34.2 ml/min; Est GFR (Non-African American) 29.5 ml/min; Magnesium 1.9 mg/dl (1.7-2.4); Phosphorus 3.5 mg/dl (2.5-4.9); Potassium 3.5 mmol/L (3.5-5.1)
[2022-09-20] MEDS: ADVANCED PROBIOTIC 1250 MG CAPSULE PO SCH (08:29)
[2022-09-20] MEDS: CLOPIDOGREL BISULFATE 75 MG TAB PO SCH (08:29)
[2022-09-20] MEDS: PANTOprazole 40 MG TAB PO SCH (08:29)
[2022-09-20] MEDS: TORSEMIDE 10 MG TAB PO SCH ×2 (08:29→20:20)
[2022-09-20] MEDS: guaiFENesin 600 MG TABCR PO SCH ×2 (08:29→20:20)
[2022-09-20] MEDS: ATORVASTATIN 40 MG TAB PO SCH (08:29)
[2022-09-20] MEDS: FERROUS SULFATE 325 MG TAB PO SCH (08:30)
[2022-09-20] MEDS: SENNA 8.6 MG TAB PO SCH (08:30)
[2022-09-20] MEDS: MAGNESIUM OXIDE 400 MG TAB PO SCH ×2 (08:30→20:20)
[2022-09-20] MEDS: METOPROLOL SUCC 50MG EXT REL TAB PO SCH ×2 (08:30→20:20)
[2022-09-20] MEDS: ISOSORBIDE MONO EXTENDED REL 60 MG TABCR PO SCH (08:31)
[2022-09-20] MEDS: ASCORBIC ACID 500 MG TAB PO SCH (08:31)
[2022-09-20] MEDS: NITROGLYCERIN 0.4 MG/HR PATCH TD SCH (08:31)
[2022-09-20] MEDS: cefUROXime axetil 500 MG TAB PO SCH (08:31)
[2022-09-20] MEDS: INSULIN ASPART PER UNIT SC SCH ×4 (08:32→20:41)
[2022-09-20] MEDS: FLUTICASONE PROPIONATE NA SPR 16 GM BTL NAE SCH (08:32)
[2022-09-20] MEDS ORDERED: POTASSIUM CHLORIDE CRTAB 20 MEQ TABCR PO ONE (08:38)
--- NOTE | 2022-09-20 08:50 | Hospitalist Progress Note ---
Date of Service September 20, 2022 Assessment & Plan (1) Acute on chronic combined systolic and diastolic heart failure: Plan: 82 y/o female with complex PMH including acute on chronic HFrEF with diastolic dysfunction, CAD w/ class 3-4 angina, PAF, tachy-tanner syndrome s/p PPM placement, aortic stenosis s/p TAVR, chronic AC, mitral stenosis, pulmonary HTN, DM2 with neuropathy, carotid stenosis s/o bilateral carotid endarterectomies, PVD, HTN, hypothyroidism, hyperlipidemia, GERD, chronic laryngospasm, RLS, glaucoma, and depression who presented today with progressive weakness and worsening respiratory status. Found to by hypoxic on presentation with a pulseox in the 70s, has responded to supplemental O2. Clinical picture c/w acute decompensation of chronic HFrEF with resultant hypoxia. Also noted to have an MARY, likely related to more aggressive diuretic regimen outpatient. Troponin noted to be elevated, likely due to demand ischemic from known CAD with class 4 angina, worsened by hypoxia, and current MARY., and UTI. repeat CXR: similar to previous 1. Cardiomegaly with unchanged pulmonary edema. 2. Stable left greater than right pleural effusions and mild bibasilar consolidation. Chest US: Limited exam secondary to lack of patient cooperation. Bilateral pleural effusions are redemonstrated. The right pleural effusion demonstrates a volume of approximately 174 mL. The left pleural effusion demonstrates a volume of approximately 279 mL. Echo: EF 35-40%, grade 3 Diastolic Dysfunction, otherwise unchanged compared to 06/2022 remains on 2 L nasal cannula crea 2.0 --> 1.8 -> 1.5 Switched from Lasix 40mg IV BID -> PO lasix (09/14/22) - switched to torsemide - plan to increase torsemide now and likely add spironolactone later - discussing w/ cardiology and nephrology given hx of hyperkalemia Continued to have chest pain with ADLs - started on Ranexa by cardiology (09/18/22) - patient felt improved, however she was tried on this medication previously and was not tolerant of it. Therefore,ranexa was stopped and patient will be on Nitropatch again however increased dose. Pt now chest pain free - continue to closely monitor. Plan to add digoxin as well (really dosed) MWF Nephrology and Cardiology following UTI urine culture: E.coli, pansensitive empiric Ceftriaxone 1g IV daily - switched to PO Abx - will DC now Ankle pain / poss. gout flare - discussed w/ nephrology - given renal function, steroids preferred - received prednisone (stopped now) - uric acid obtained and pt started on allopurinol - pt denies any more ankle pain (2) Hypoxia: Plan: secondary to above wean off oxygen accordingly 2 step obtained - needs 2L cont. (3) MARY (acute kidney injury): Plan: cardiorenal syndrome? [employer] consulted management per above (4) Acute hyperkalemia: Plan: 5.2 --> 4.1 -> 3.9 ->4.7 -> 5.9 -> 4.4 09/20 - resolved and given K supplement again - previously stopped potassium supplement and received lokelma - cont. to monitor K level closely (5) Chronic anticoagulation: Plan: INR 1.8 resumed coumadin - monitor INR (6) Angina pectoris: Plan: medically managed inoperable CAD lesions per last Cardiac cath continue usual NitroDur patch, Imdur, Metoprolol management per Cardiology service (7) ASCVD (arteriosclerotic cardiovascular disease): (8) Diabetes mellitus, type 2: Plan: Holding outpatient regimen. A1c 07/13/22 was 8.3% - Sliding scale insulin - Diabetic diet, BSG ACHS (9) Diabetic neuropathy: Plan: Continue gabapentin (10) GERD (gastroesophageal reflux disease): Plan: Continue PPI therapy (11) Hyperlipidemia: Plan: Continue statin (12) Hypertension: (13) Glaucoma: Plan Code Status: Full Code DVT Prophylaxis: on chronic warfarin Disposition - patient's daughter prefers patient to transition to SNF Admission and Anticipated Discharge Date Admission Date: September 12, 2022 Subjective Pt seen in follow up for acute on chronic systolic CHF exacerbation, MARY, UTI No chest pain overnight, however she has difficulty breathing/orthopnea/PND while laying in bed She feels comfortable when she is sitting up in chair on suppl. O2 via NC Currently no chest pain, dyspnea, palpitations, dizziness while at rest no cough, fever/chills no other symptoms Cardiology/nephrology following. Torsemide dose changed/increased, digoxin also started Discussed possible thoracentesis with cardiology and the patient, however patient declined. Discussed further plan with cardiology in detail. Plan to stay for few more days to see if we can diurese appropriately. Review of Systems Review of Systems: All systems reviewed & are unremarkable except as noted in Subjective Physical Exam Physical Exam: General- oriented x 3, not in distress, speaks in sentences with no effort or accessory muscle use, on 2 L O2 via NC Eyes- anicteric Neck- no JVD Lungs- +crackles, diminished breath sounds at bases Heart- normal rate, regular rhythm; no murmurs Abdomen- normal bowel sounds, nondistended, soft, nontender Extremities- mild pretibial edema, no calf tenderness Neuro- alert, oriented x 3; no gross focal neurologic deficits Skin- warm & dry Results & Data Results & Data ([facility]) Vital Signs (Past 12 Hours) Vital Signs Temp Pulse Pulse Resp BP Pulse Ox O2 Del Method 09/20/22 08:45 36.4 C L 72 18 128/67 100 Nasal Cannula 09/20/22 08:28 16 97 Nasal Cannula 09/20/22 08:28 18 82 L Room Air 09/20/22 02:15 36.7 C 71 17 120/53 L 100 Nasal Cannula 09/19/22 22:01 75 09/19/22 22:04 36.5 C 74 17 136/66 100 Nasal Cannula O2 Flow Rate 09/20/22 08:45 1 09/20/22 08:28 1 09/20/22 08:28 09/20/22 02:15 09/19/22 22:01 09/19/22 22:04 Laboratory Results 09/20/22 09/20/22 09/20/22 Range/Units 07:01 06:10 06:10 WBC 8.09 (4.8-10.8) K/ul RBC 3.46 L (3.93-5.22) M/uL Hgb 10.4 L (12.0-16.0) g/dl Hct 32.0 L (34.1-44.9) % MCV 92.5 (80.0-100.0) fL MCH 30.1 (25.0-34.0) pg MCHC 32.5 (32.0-36.0) g/dL RDW Std Deviation 49.1 H (36.4-46.3) fL RDW Coeff of Omid 14.6 H (11.5-14.5) % Plt Count 293 (130-400) K/uL MPV 10.4 (9.4-12.3) fL PT (9.0-12.0) Seconds INR (0.9-1.1) Sodium 143 (136-145) mmol/L Potassium 3.5 (3.5-5.1) mmol/L Chloride 95 L (98-107) mmol/L Carbon Dioxide 44 H* (21-32) mmol/L Anion Gap 4 (3-11) BUN 61 H (6-23) mg/dl Creatinine 1.61 H (0.6-1.2) mg/dl Est Cr Clr Drug Dosing 26.1 ml/min Est GFR ( Amer) 34.2 ml/min Est GFR (Non-Af Amer) 29.5 ml/min BUN/Creatinine Ratio 37.9 H (10-20) Glucose 149 H (70-99(Fasting)) mg/dl POC Glucose 161 H (70-99) mg/dl Calcium 9.6 (8.5-10.1) mg/dl Phosphorus 3.5 (2.5-4.9) mg/dl Magnesium 1.9 (1.7-2.4) mg/dl 09/20/22 09/19/22 09/19/22 Range/Units 06:10 23:31 20:06 WBC (4.8-10.8) K/ul RBC (3.93-5.22) M/uL Hgb (12.0-16.0) g/dl Hct (34.1-44.9) % MCV (80.0-100.0) fL MCH (25.0-34.0) pg MCHC (32.0-36.0) g/dL RDW Std Deviation (36.4-46.3) fL RDW Coeff of Omid (11.5-14.5) % Plt Count (130-400) K/uL MPV (9.4-12.3) fL PT 18.7 H (9.0-12.0) Seconds INR 1.8 H (0.9-1.1) Sodium (136-145) mmol/L Potassium (3.5-5.1) mmol/L Chloride (98-107) mmol/L Carbon Dioxide (21-32) mmol/L Anion Gap (3-11) BUN (6-23) mg/dl Creatinine (0.6-1.2) mg/dl Est Cr Clr Drug Dosing ml/min Est GFR ( Amer) ml/min Est GFR (Non-Af Amer) ml/min BUN/Creatinine Ratio (10-20) Glucose (70-99(Fasting)) mg/dl POC Glucose 192 H 325 H* (70-99) mg/dl Calcium (8.5-10.1) mg/dl Phosphorus (2.5-4.9) mg/dl Magnesium (1.7-2.4) mg/dl 09/19/22 09/19/22 09/19/22 Range/Units 16:15 16:14 11:08 WBC (4.8-10.8) K/ul RBC (3.93-5.22) M/uL Hgb (12.0-16.0) g/dl Hct (34.1-44.9) % MCV (80.0-100.0) fL MCH (25.0-34.0) pg MCHC (32.0-36.0) g/dL RDW Std Deviation (36.4-46.3) fL RDW Coeff of Omid (11.5-14.5) % Plt Count (130-400) K/uL MPV (9.4-12.3) fL PT (9.0-12.0) Seconds INR (0.9-1.1) Sodium (136-145) mmol/L Potassium (3.5-5.1) mmol/L Chloride (98-107) mmol/L Carbon Dioxide (21-32) mmol/L Anion Gap (3-11) BUN (6-23) mg/dl Creatinine (0.6-1.2) mg/dl Est Cr Clr Drug Dosing ml/min Est GFR ( Amer) ml/min Est GFR (Non-Af Amer) ml/min BUN/Creatinine Ratio (10-20) Glucose (70-99(Fasting)) mg/dl POC Glucose 373 H* 345 H* 276 H (70-99) mg/dl Calcium (8.5-10.1) mg/dl Phosphorus (2.5-4.9) mg/dl Magnesium (1.7-2.4) mg/dl Medications Administered Current Inpatient Medications Acetaminophen (Acetaminophen 325 Mg Tab) 650 mg PO Q4H PRN PRN Reason: Pain or Fever Stop: 10/13/22 03:09 Last Admin: 09/15/22 16:24 Dose: 650 mg Ascorbic Acid (Ascorbic Acid 500 Mg Tab) [facility] Stop: 10/13/22 08:59 Last Admin: 09/20/22 08:31 Dose: 250 mg Atorvastatin Calcium (Atorvastatin 40 Mg Tab) 80 mg PO QAM [facility] Stop: 10/13/22 08:59 Last Admin: 09/20/22 08:29 Dose: 80 mg Cefuroxime Axetil (Cefuroxime Axetil 500 Mg Tab) 500 mg PO BID [facility] Stop: 09/23/22 12:59 Last Admin: 09/20/22 08:31 Dose: 500 mg Clopidogrel Bisulfate (Clopidogrel Bisulfate 75 Mg Tab) [facility] [place] Stop: 10/13/22 08:59 Last Admin: 09/20/22 08:29 Dose: 75 mg Dextrose (Dextrose 50% 50 Ml Syringe) 25 - 50 ml IV UD PRN; Protocol PRN Reason: Hypoglycemia Protocol Stop: 10/13/22 03:09 Ferrous Sulfate (Ferrous Sulfate 325 Mg Tab) 325 mg PO [facility] Stop: 10/13/22 08:59 Last Admin: 09/20/22 08:30 Dose: 325 mg Fluticasone Propionate (Fluticasone Propionate Na Spr 16 Gm Btl) 2 sprays JAQUELIN DAILY [facility] Stop: 10/13/22 08:59 Last Admin: 09/20/22 08:32 Dose: 2 sprays Gabapentin (Gabapentin 300 Mg Cap) 600 mg PO HS [facility] Stop: 10/13/22 03:09 Last Admin: 09/19/22 20:10 Dose: 600 mg Glucagon (Glucagon For Inj 1 Mg Vial) 1 mg SQ UD PRN; Protocol PRN Reason: Hypoglycemia Protocol Stop: 10/13/22 03:09 Glucose (Glucose 40% Gel 15 Gm Tube) 15 - 30 gm PO UD PRN; Protocol PRN Reason: Hypoglycemia Protocol Stop: 10/13/22 03:09 Glucose (Glucose 10 Tab/Tube) 4 - 8 tab PO UD PRN; Protocol PRN Reason: Hypoglycemia Treatment Stop: 10/13/22 03:09 Guaifenesin (Guaifenesin 600 Mg Tabcr) 600 mg PO Q12 [facility] Stop: 10/16/22 20:59 Last Admin: 09/20/22 08:29 Dose: 600 mg Insulin Aspart (Insulin Aspart Per Unit) 0 units SC ACHS [facility] Stop: 10/13/22 11:29 Last Admin: 09/20/22 08:32 Dose: 6 units Isosorbide Mononitrate (Isosorbide Hettinger Extended Rel 60 Mg Tabcr) 120 mg PO QAM [facility] Stop: 10/13/22 08:59 Last Admin: 09/20/22 08:31 Dose: 120 mg Lactobacillus Acidophilus (Advanced Probiotic 1250 Mg Capsule) 2 cap PO DAILY [facility] Stop: 10/19/22 12:44 Last Admin: 09/20/22 08:29 Dose: 2 cap Latanoprost (Latanoprost 0.005% Op Soln 2.5 Ml Btl) 1 drops OPB HS [facility] Stop: 10/13/22 03:09 Last Admin: 09/19/22 20:12 Dose: 1 drops Levothyroxine Sodium (Levothyroxine Sodium 25 Mcg Tablet) 25 mcg PO DAILYBB [facility] Stop: 10/13/22 06:29 Last Admin: 09/20/22 06:08 Dose: 25 mcg Magnesium Oxide (Magnesium Oxide 400 Mg Tab) 400 mg PO AMHS [facility] Stop: 10/13/22 05:59 Last Admin: 09/20/22 08:30 Dose: 400 mg Melatonin (Melatonin 3 Mg Tab) 3 mg PO HS PRN PRN Reason: Sleep Stop: 10/13/22 21:59 Last Admin: 09/19/22 22:17 Dose: 3 mg Metoprolol Succinate (Metoprolol Succ 50mg Ext Rel Tab) 100 mg PO HS [facility] Stop: 10/13/22 03:09 Last Admin: 09/19/22 20:15 Dose: 100 mg Metoprolol Succinate (Metoprolol Succ 50mg Ext Rel Tab) 150 mg PO QAM [facility] Stop: 10/13/22 08:59 Last Admin: 09/20/22 08:30 Dose: 150 mg Miscellaneous (Carbohydrates For Hypoglycemia ) 15 - 30 gm PO UD PRN PRN Reason: Hypoglycemia Protocol Stop: 10/13/22 03:09 Miscellaneous (Remove Nitro-Dur Patch) 1 each N/A DAILY@2100 [facility] Stop: 10/19/22 20:59 Last Admin: 09/19/22 20:25 Dose: 1 each Netarsudil (Netarsudil Mesylate 37 Drops/2.5 Ml Btl) 1 drops OPB HS [facility] Stop: 10/15/22 20:59 Last Admin: 09/19/22 20:14 Dose: 1 drops Nitroglycerin (Nitroglycerin Sl 0.4 Mg/Tab Tab) 0.4 mg SL PRN PRN PRN Reason: Chest Pain Stop: 10/17/22 03:19 Last Admin: 09/18/22 10:27 Dose: 0.4 mg Nitroglycerin (Nitroglycerin 0.4 Mg/Hr Patch) 1 patch TD [facility] Stop: 10/19/22 09:14 Last Admin: 09/20/22 08:31 Dose: 1 patch Pantoprazole Sodium (Pantoprazole 40 Mg Tab) 40 mg PO [facility] Stop: 10/13/22 08:59 Last Admin: 09/20/22 08:29 Dose: 40 mg Ropinirole HCl (Ropinirole Hcl 0.25 Mg Tablet) 0.25 mg PO [facility] Stop: 10/13/22 03:09 Last Admin: 09/19/22 20:14 Dose: 0.25 mg Sennosides (Senna 8.6 Mg Tab) 8.6 mg PO [facility] Stop: 10/15/22 12:44 Last Admin: 09/20/22 08:30 Dose: 8.6 mg Torsemide (Torsemide 10 Mg Tab) 20 mg PO BID17 [facility] Stop: 10/18/22 16:59 Last Admin: 09/20/22 08:29 Dose: 20 mg Warfarin Sodium (Warfarin Sod 5 Mg Tab) 5 mg PO DAILY@1600 [facility] Stop: 10/13/22 15:59 Last Admin: 09/16/22 17:52 Dose: 5 mg
--- NOTE | 2022-09-20 09:10 | Cardiology Progress Note ---
Date of Service September 20, 2022 Assessment & Plan (1) Acute on chronic combined systolic and diastolic heart failure: (2) Hypoxia: (3) Pulmonary edema: (4) Troponin level elevated: (5) CKD (chronic kidney disease): (6) Angina pectoris: (7) CAD (coronary artery disease): Plan 1. Inoperable CAD. CCS Class III+ angina pectoris. Poor tolerance to Ranexa. No angina on Isosorbide and Nitro-Dur patches 2. Systolic and diastolic CHF. EF 35-40% via 06/2022 TTE. NYHA Class III. Volume status: Hypervolemic, with bilateral pleural effusions. 3. 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 Severe aortic valve stenosis status post February 26, 2019 TAVR with a #23 mm Najera Sade S3 Valve 5. Calcific mitral stenosis, moderate or greater. 6. Carotid occlusive disease. Status post left carotid endarterectomy in 05/2013. Status post June 2016 right carotid endarterectomy 7. Chronic obstructive and restrictive pulmonary disease, asthma 8. Hypertension. 9. Hyperlipidemia. 10. Chronic laryngospasm 11. Diabetes mellitus with neuropathy. Repeat chest ultrasound discussed along with possible referral for thoracentesis. Patient in opposition. Supplement potassium orally Increase Torsemide dosing to 30 mg in the AM and 20 mg in the PM Add renally dosed digoxin for HFrEF, 125 mcg MWF Admission and Anticipated Discharge Date Admission Date: September 12, 2022 Supervising Physician Co-Signing Physician Notes I have seen and examined the patient. I reviewed the medical record and discussed the case with Thaddeus Cole. I agree with the plan as outlined above. Subjective Patient seen and examined. Chart, medications, and telemetry reviewed. No episodes of angina over the last 24 hours Sleeping in the chair due to orthopnea and PND Breathing seems to be better this AM Chest x-ray on 09/19/2022 revealed increased bilateral pleural effusions I/O's are -350 mL on 09/18, -1,100 on 09/19/2022, and -1,735 on 09/20/2022. INR 1.8 this AM Potassium 3.5 mmol/L Telemetry: Sinus/paced in the 70's. Review of Systems Review of Systems: Complete Review of Systems is as stated above, negative, or noncontributory. Physical Exam Physical Exam: General: A&Ox3. NAD. HENT: Normocephalic. Atraumatic. Eyes: PER. Conjunctiva pink, sclera clear. Neck: No carotid bruits. JVD. Heart: RRR, 76 bpm. Systolic murmur. No diastolic murmur. No rub. Lungs: Absent breath sound 1/3 up bilaterally. Abdomen: +BS. Soft. Nontender. No masses or organomegaly. Extremities: 1+ edema. No clubbing. No cyanosis. Limited neurological examination is without focal deficits. Pulses: radial=2/4, posterior tibial=1/4. Results & Data ([facility]) Vital Signs (Past 12 Hours) Vital Signs Temp Pulse Pulse Resp BP Pulse Ox O2 Del Method 09/20/22 08:45 36.4 C L 72 18 128/67 100 Nasal Cannula 09/20/22 08:28 16 97 Nasal Cannula 09/20/22 08:28 18 82 L Room Air 09/20/22 02:15 36.7 C 71 17 120/53 L 100 Nasal Cannula 09/19/22 22:01 75 09/19/22 22:04 36.5 C 74 17 136/66 100 Nasal Cannula O2 Flow Rate 09/20/22 08:45 1 09/20/22 08:28 1 09/20/22 08:28 09/20/22 02:15 09/19/22 22:01 09/19/22 22:04 Laboratory Results Coagulation 09/20/22 Range/Units 06:10 PT 18.7 H (9.0-12.0) Seconds CBC 09/20/22 Range/Units 06:10 WBC 8.09 (4.8-10.8) K/ul RBC 3.46 L (3.93-5.22) M/uL Hgb 10.4 L (12.0-16.0) g/dl Hct 32.0 L (34.1-44.9) % Plt Count 293 (130-400) K/uL Comprehensive Metabolic Panel 09/20/22 Range/Units 06:10 Sodium 143 (136-145) mmol/L Potassium 3.5 (3.5-5.1) mmol/L Chloride 95 L (98-107) mmol/L Carbon Dioxide 44 H* (21-32) mmol/L BUN 61 H (6-23) mg/dl Creatinine 1.61 H (0.6-1.2) mg/dl Glucose 149 H (70-99(Fasting)) mg/dl Calcium 9.6 (8.5-10.1) mg/dl Intake and Output 09/19/22 09/20/22 09/20/22 22:59 06:59 14:59 Intake Total 150 / 590 Output Total 525 / 2325 1100 / 2325 Balance -375 / -1735 -1100 / -1735 Intake: Oral 150 / 590 Output: Urine 525 / 2325 1100 / 2325 (1) Pulmonary edema Chronicity: acute Qualified Code(s): J81.0 - Acute pulmonary edema
[2022-09-20] MEDS ORDERED: TORSEMIDE 10 MG TAB PO ONE (10:00)
[2022-09-20] MEDS ORDERED: POTASSIUM CHLORIDE 10 MEQ TABCR PO ONE (10:00)
[2022-09-20] MEDS: allopurinoL 100 MG TAB PO SCH (10:22)
--- NOTE | 2022-09-20 11:18 | Nephrology Progress Note ---
Date of Service September 20, 2022 Assessment & Plan Admission and Anticipated Discharge Date Admission Date: September 12, 2022 Subjective Assessment & Plan (1) MARY (acute kidney injury): Plan: MARY w/ again further improved creatinine this am compared to arrival > ischemic ATN d/t obligate diuretics to manage heart failure; given her obligate diuretic needs which are generally/subacutely increasing, suspect she will never again have normal renal function for long and that some of this admission will involve establishing new baseline renal function. her prior baseline in July had been 1.1-1.2 and high ones in August. Rec: 1 Dr Hamilton Asked me to give opinion regarding aldactone use. She had high K on admission with ARF/ATN/ concomitant K supplement. has not got any k supplement since admission and K is normal currently. Creat went up a bit today I dont see why she cannot take Aldactone eventually. However will like to see her K as outpt with her home diet. Continue Current Diuretics and if K and Creat remains stable outpt she can be on Aldactone without K supplement. Accept a higer baseline creat to achieve better volume status. Bicarb is high but that is physiological compensation to account for her underlying Lung Disease. her last ABG still showed Acidosis with ph of 7.33 so Do not give Diamox. her bicarb level should remain high Subjective No new issues. Feels about same. has SOB Review of Systems Review of Systems: All systems reviewed & are unremarkable except as noted in Subjective Physical Exam Constitutional: well developed, well nourished, + frail appearing and cooperative; no acute distress Eyes: EOM intact bilaterally ENMT: Ears: no external ear abnormality Nose: no external nose abnormality Mouth: + dry oral mucous membranes Neck: no nuchal rigidity Respiratory: normal respiratory effort (while sitting in bed), + cough, able to speak in complete sentences and + paradoxical thoraco-abdominal movement; no labored breathing Auscultation: + diminished lung sounds and + crackles (throughout lower posterior mello) Cardiovascular: Rate/Rhythm: regular rate and regular rhythm Extremities: + edema (trace) Gastrointestinal (Abdomen): Inspection/Auscultation: normal bowel sounds Percussion/Palpation: abdomen soft; abdomen nontender Musculoskeletal: Extremities: strength 5/5 throughout Skin: no rashes, warm and dry Neurologic: randall, fluent speech, no tremor Psychiatric: Orientation: oriented x 3 Genitourinary: ruiz out Results & Data ([facility]) Vital Signs (Past 12 Hours) Vital Signs Temp Pulse Pulse Resp BP Pulse Ox O2 Del Method 09/20/22 10:18 63 09/20/22 09:26 Nasal Cannula 09/20/22 08:45 36.4 C L 72 18 128/67 100 Nasal Cannula 09/20/22 08:28 16 97 Nasal Cannula 09/20/22 08:28 18 82 L Room Air 09/20/22 02:15 36.7 C 71 17 120/53 L 100 Nasal Cannula O2 Flow Rate 09/20/22 10:18 09/20/22 09:26 1 09/20/22 08:45 1 09/20/22 08:28 1 09/20/22 08:28 09/20/22 02:15
[2022-09-20] MEDS ORDERED: INSULIN HUMAN REGULAR PER UNIT 4 UNITS in SYRINGE 3.96 ML IV ONE (12:15)
[2022-09-20] MEDS ORDERED: LANTUS PER UNIT CHARGE SQ ONE (13:45)
[2022-09-20] MEDS: WARFARIN SOD 5 MG TAB PO SCH (17:04)
[2022-09-20] MEDS: rOPINIRole HCL 0.25 MG TABLET PO SCH (20:20)
[2022-09-20] MEDS: GABAPENTIN 300 MG CAP PO SCH (20:20)
[2022-09-20] MEDS: LATANOPROST 0.005% OP SOLN 2.5 ML BTL OPB SCH (20:21)
[2022-09-20] MEDS: NETARSUDIL MESYLATE 37 DROPS/2.5 ML BTL OPB SCH (20:21)
[2022-09-21] MEDS: LEVOTHYROXINE SODIUM 25 MCG TABLET PO SCH (04:37)
[2022-09-21] MEDS: INSULIN ASPART PER UNIT SC SCH ×4 (07:30→21:16)
[2022-09-21] MEDS: guaiFENesin 600 MG TABCR PO SCH ×2 (09:00→19:57)
[2022-09-21] MEDS: FERROUS SULFATE 325 MG TAB PO SCH (09:00)
[2022-09-21] MEDS: ADVANCED PROBIOTIC 1250 MG CAPSULE PO SCH (09:00)
[2022-09-21] MEDS: allopurinoL 100 MG TAB PO SCH (09:00)
[2022-09-21] MEDS: SENNA 8.6 MG TAB PO SCH (09:00)
[2022-09-21] MEDS: ASCORBIC ACID 500 MG TAB PO SCH (09:00)
[2022-09-21] MEDS: CLOPIDOGREL BISULFATE 75 MG TAB PO SCH (09:00)
[2022-09-21] MEDS: PANTOprazole 40 MG TAB PO SCH (09:00)
[2022-09-21] MEDS: ISOSORBIDE MONO EXTENDED REL 60 MG TABCR PO SCH (09:00)
[2022-09-21] MEDS: TORSEMIDE 10 MG TAB PO SCH ×2 (09:00→19:57)
[2022-09-21] MEDS: METOPROLOL SUCC 50MG EXT REL TAB PO SCH ×2 (09:00→19:57)
[2022-09-21] MEDS: ATORVASTATIN 40 MG TAB PO SCH (09:00)
[2022-09-21] MEDS: FLUTICASONE PROPIONATE NA SPR 16 GM BTL NAE SCH (09:00)
[2022-09-21] MEDS: MAGNESIUM OXIDE 400 MG TAB PO SCH ×2 (09:00→19:57)
[2022-09-21] MEDS: NITROGLYCERIN 0.4 MG/HR PATCH TD SCH (11:35)
[2022-09-21] MEDS: cefUROXime axetil 500 MG TAB PO SCH (11:37)
[2022-09-21 11:42] LABS: Calcium 9.6 mg/dl (8.5-10.1); Creatinine Clr Calc Pharmacy 29.9 ml/min; Est GFR (African American) 39.8 ml/min; Est GFR (Non-African American) 34.3 ml/min; Magnesium 1.8 mg/dl (1.7-2.4); Potassium 3.7 mmol/L (3.5-5.1)
[2022-09-21 12:11] LABS: INR 1.5 (0.9-1.1); Prothrombin Time 15.7 Seconds (9.0-12.0)
--- NOTE | 2022-09-21 12:36 | Cardiology Progress Note ---
Date of Service September 21, 2022 Assessment & Plan (1) Acute on chronic combined systolic and diastolic heart failure: (2) Hypoxia: (3) Pulmonary edema: (4) Troponin level elevated: (5) CKD (chronic kidney disease): (6) Angina pectoris: (7) CAD (coronary artery disease): Plan 1. Inoperable CAD. CCS Class III+ angina pectoris. Poor tolerance to Ranexa. No angina on Isosorbide and Nitro-Dur patches. Patient without angina x 2+ days. 2. Systolic and diastolic CHF. EF 35-40% via 06/2022 TTE. NYHA Class III. Volume status: Hypervolemic, with bilateral pleural effusions, improving. 3. 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 Severe aortic valve stenosis status post February 26, 2019 TAVR with a #23 mm Najera Sade S3 Valve 5. Calcific mitral stenosis, moderate or greater. 6. Carotid occlusive disease. Status post left carotid endarterectomy in 05/2013. Status post June 2016 right carotid endarterectomy 7. Chronic obstructive and restrictive pulmonary disease, asthma 8. Hypertension. 9. Hyperlipidemia. 10. Chronic laryngospasm 11. Diabetes mellitus with neuropathy. Await labs. Continue medications as prescribed for now. Increase activity as tolerated. Admission and Anticipated Discharge Date Admission Date: September 12, 2022 Supervising Physician Co-Signing Physician Notes I have reviewed the medical record and examined the patient. I discussed the case with Thaddeus Cole. I agree with the plan as outlined above. Subjective Patient seen and examined left around 9:15 AM. EMR down, no data available for review when patient was evaluated. Laboratory work remains unavailable at the time of dictation. Patient notes feeling better today than she has felt in some time. Her breathing is much improved. She has not had angina in 2 days. Slept better last night, still with recliner orthopnea. I/O's are -1,100 on 09/19/2022, -1,735 on 09/20/2022, and -1975 on 09/21/2022 Telemetry: Sinus/paced in the 70's Review of Systems Review of Systems: Complete review of systems is otherwise as stated above, negative, or noncontributory. Physical Exam Physical Exam: General: A&Ox3. NAD. HENT: Normocephalic. Atraumatic. Eyes: PER. Conjunctiva pink, sclera clear. Neck: No carotid bruits. JVD. Heart: RRR, 70 bpm. Systolic murmur. No diastolic murmur. No rub. Lungs: Absent breath sound 1/3 up bilaterally. Abdomen: +BS. Soft. Nontender. No masses or organomegaly. Extremities: 1+ edema. No clubbing. No cyanosis. Limited neurological examination is without focal deficits. Pulses: radial=2/4, posterior tibial=1/4. Results & Data ([facility]) Vital Signs (Past 12 Hours) Vital Signs Temp Pulse Resp BP Pulse Ox O2 Del Method O2 Flow Rate 09/21/22 11:27 36.5 C 65 18 104/41 L 99 Nasal Cannula 1 09/21/22 07:27 36.5 C 68 18 93/52 L 99 Room Air 09/21/22 02:23 36.4 C 75 18 129/53 L 95 Nasal Cannula Laboratory Results Intake and Output 09/20/22 09/21/22 09/21/22 22:59 06:59 14:59 Intake Total 100 / 300 Output Total 775 / 2275 800 / 2275 Balance - / -1974 - / -1974 Intake: Oral 100 / 300 Output: Urine 775 / 2275 800 / 2275 Other: Weight 76.2 kg Weight Measurement Method Built in [facility] (1) Pulmonary edema Chronicity: acute Qualified Code(s): J81.0 - Acute pulmonary edema
--- NOTE | 2022-09-21 12:45 | Nephrology Progress Note ---
Date of Service September 21, 2022 Assessment & Plan Admission and Anticipated Discharge Date Admission Date: September 12, 2022 Subjective Assessment & Plan (1) MARY (acute kidney injury): Plan: MARY w/ again further improved creatinine this am compared to arrival > ischemic ATN d/t obligate diuretics to manage heart failure; given her obligate diuretic needs which are generally/subacutely increasing, suspect she will never again have normal renal function for long and that some of this admission will involve establishing new baseline renal function. her prior baseline in July had been 1.1-1.2 and high ones in August. Rec: Continue Current Diuretics and if K and Creat remains stable outpt she can be on Aldactone without K supplement. Accept a higher baseline creat to achieve better volume status. Bicarb is high but that is physiological compensation to account for her underlying Lung Disease. Her last ABG still showed Acidosis with ph of 7.33 so Do not give Diamox. her bicarb level should remain high Subjective No new issues. Feels better and less SOB Review of Systems Review of Systems: All systems reviewed & are unremarkable except as noted in Subjective Physical Exam Constitutional: well developed, well nourished, + frail appearing and cooperative; no acute distress Eyes: EOM intact bilaterally ENMT: Ears: no external ear abnormality Nose: no external nose abnormality Mouth: + dry oral mucous membranes Neck: no nuchal rigidity Respiratory: normal respiratory effort (while sitting in bed), + cough, able to speak in complete sentences and + paradoxical thoraco-abdominal movement; no labored breathing Auscultation: + diminished lung sounds and + crackles (throughout lower posterior mello) Cardiovascular: Rate/Rhythm: regular rate and regular rhythm Extremities: + edema (trace) Gastrointestinal (Abdomen): Inspection/Auscultation: normal bowel sounds Percussion/Palpation: abdomen soft; abdomen nontender Musculoskeletal: Extremities: strength 5/5 throughout Skin: no rashes, warm and dry Neurologic: randall, fluent speech, no tremor Psychiatric: Orientation: oriented x 3 Genitourinary: ruiz out Results & Data ([facility]) Vital Signs (Past 12 Hours) Vital Signs Temp Pulse Resp BP Pulse Ox O2 Del Method O2 Flow Rate 09/21/22 11:27 36.5 C 65 18 104/41 L 99 Nasal Cannula 1 09/21/22 07:27 36.5 C 68 18 93/52 L 99 Room Air 09/21/22 02:23 36.4 C 75 18 129/53 L 95 Nasal Cannula
--- NOTE | 2022-09-21 14:20 | Hospitalist Progress Note ---
Date of Service September 21, 2022 Assessment & Plan (1) Acute on chronic combined systolic and diastolic heart failure: Plan: Patient is an 82 yr female with H/O chronic systolic and diastolic dysfunction, CAD w/ class 3-4 angina, PAF, tachy-tanner syndrome s/p PPM placement, aortic stenosis s/p TAVR, chronic AC, mitral stenosis, pulmonary HTN, DM2 with neuropathy, carotid stenosis s/o bilateral carotid endarterectomies, PVD, HTN, hypothyroidism, hyperlipidemia, GERD, chronic laryngospasm, RLS, glaucoma, and depression who presented today with progressive weakness and worsening respiratory status. Found to by hypoxic on presentation with a pulseox in the 70s, has responded to supplemental O2. Acute on chronic systolic and diastolic heart failure Acute on chronic respiratory failure with hypoxia Chronic oxygen dependency: On 2 L at bedtime at baseline Pulmonary edema secondary to above Severe arctic valve stenosis S/P TAVR in 2019 Chronic mitral stenosis Pulmonary hypertension --CXR: There are moderate bilateral pleural effusions, somewhat increased from the prior exam. Airspace opacities compatible with atelectasis, superimposed pneumonia/aspiration cannot be entirely excluded. Stable cardiomegaly. --ECHO: Normal LV chamber size with mild concentric LVH, EF 35 to 40%. Large sized septal, apical, lateral and inferior wall motion abnormality. Grade 2 diastolic dysfunction. Bioprosthetic aortic valve. Gradient is normal for the prosthetic aortic valve. Mild intra-abdominal aortic regurgitation. Severe mitral annular calcification. Mild mitral regurgitation. Moderate mitral stenosis. Moderate tricuspid regurgitation. Pulmonary artery hypertension present with PASP of 50 mmHg. Moderate size left pleural effusion. --Chest US:Limited exam secondary to lack of patient cooperation. Bilateral pleural effusions are redemonstrated. The right pleural effusion demonstrates a volume of approximately 174 mL. The left pleural effusion demonstrates a volume of approximately 279 mL. -- Offered thoracentesis: Patient refused --Monitor I's and O's, daily weight, volume status Continue torsemide as per cardiology/nephrology. Appreciate cardiology/nephrology input Wean off of supplemental oxygen during daytime as able Can continue supplemental oxygen 2 L at bedtime Angina pectoris Inoperable coronary artery disease Intolerance to Ranexa Continue Plavix, Lipitor, isosorbide, metoprolol, nitroglycerin Added digoxin Currently chest pain free UTI Urine culture: E.coli, pansensitive IV Ceftriaxone>> changed to Ceftin Ankle pain / poss. gout flare -Completed prednisone course Elevated uric acid levels Continue allopurinol (2) Hypoxia: Plan: secondary to above May need 2 step prior to discharge (3) MARY (acute kidney injury): Plan: MARY Likely Ischemic ATN Cr 1.4 today Monitor renal function Avoid nephrotoxic agents as able Appreciate Nephrology Input (4) Acute hyperkalemia: Plan: Resolved Potassium supplement discontinued Received Lokelma (5) Chronic anticoagulation: Plan: INR 1.5 today Increase Coumadin to 7.5 mg monitor INR (6) Angina pectoris: Plan: as above (7) ASCVD (arteriosclerotic cardiovascular disease): (8) Diabetes mellitus, type 2: Plan: Holding outpatient regimen. A1c 07/13/22 was 8.3% - Sliding scale insulin - Diabetic diet, BSG ACHS (9) Diabetic neuropathy: Plan: Continue gabapentin (10) GERD (gastroesophageal reflux disease): Plan: Continue PPI therapy (11) Hyperlipidemia: Plan: Continue statin (12) Hypertension: (13) Glaucoma: Plan Code Status: Full Code DVT Px: Warfarin Disposition Rehab as able Admission and Anticipated Discharge Date Admission Date: September 12, 2022 Subjective Patient is seen and examined at bedside " I was able to sleep better overnight" Dyspnea much improved Still has leg edema Denies any chest pain, dyspnea, dizziness, nausea, abdominal pain No other complaints Review of Systems Review of Systems: All systems reviewed & are unremarkable except as noted in Subjective Physical Exam Physical Exam: Physical Exam: Vitals signs as noted above General Appearance:Moderately built and nourished, no apparent distress Head: normocephalic, Atraumatic Eyes: normal inspection, EOMI Neck: supple, Trachea midline Respiratory/Chest: Normal breath sounds, CTA, No accessory muscle use Cardiovascular: S1, S2, + murmur Abdomen/GI:Soft, Non tender, Bowel sounds present Extremities/Musculoskeletal:normal inspection, B/L LE 2+ edema Neurologic/Psych:AAOX3, grossly no focal neurological deficits Skin: normal color, warm Results & Data Results & Data ([facility]) Vital Signs (Past 12 Hours) Vital Signs Temp Pulse Resp BP Pulse Ox O2 Del Method O2 Flow Rate 09/21/22 08:00 Nasal Cannula 2 09/21/22 11:27 36.5 C 65 18 104/41 L 99 Nasal Cannula 1 09/21/22 07:27 36.5 C 68 18 93/52 L 99 Room Air 09/21/22 02:23 36.4 C 75 18 129/53 L 95 Nasal Cannula Laboratory Results [facility] 09/21/22 07:48 Sodium 143 Potassium 3.7 Chloride 95 L Carbon Dioxide 43 H* BUN 54 H Creatinine 1.42 H Glucose 119 H Calcium 9.6
[2022-09-21] MEDS ORDERED: DIGOXIN 0.125 MG TAB PO SCH (16:00)
[2022-09-21] MEDS: WARFARIN SOD 7.5 MG TAB PO SCH (16:08)
[2022-09-21] MEDS: ACETAMINOPHEN 325 MG TAB PO PRN (19:56)
[2022-09-21] MEDS: LATANOPROST 0.005% OP SOLN 2.5 ML BTL OPB SCH (19:56)
[2022-09-21] MEDS: GABAPENTIN 300 MG CAP PO SCH (19:57)
[2022-09-21] MEDS: rOPINIRole HCL 0.25 MG TABLET PO SCH (19:57)
[2022-09-21] MEDS: NETARSUDIL MESYLATE 37 DROPS/2.5 ML BTL OPB SCH (19:59)
[2022-09-22] MEDS: LEVOTHYROXINE SODIUM 25 MCG TABLET PO SCH (04:00)
[2022-09-22] MEDS: MAGNESIUM OXIDE 400 MG TAB PO SCH ×2 (08:05→20:16)
[2022-09-22] MEDS: ATORVASTATIN 40 MG TAB PO SCH (08:05)
[2022-09-22] MEDS: guaiFENesin 600 MG TABCR PO SCH ×2 (08:06→20:16)
[2022-09-22] MEDS: METOPROLOL SUCC 50MG EXT REL TAB PO SCH ×2 (08:06→20:16)
[2022-09-22] MEDS: FERROUS SULFATE 325 MG TAB PO SCH (08:07)
[2022-09-22] MEDS: cefUROXime axetil 500 MG TAB PO SCH (08:07)
[2022-09-22] MEDS: SENNA 8.6 MG TAB PO SCH (08:07)
[2022-09-22] MEDS: PANTOprazole 40 MG TAB PO SCH (08:07)
[2022-09-22] MEDS: ADVANCED PROBIOTIC 1250 MG CAPSULE PO SCH (08:07)
[2022-09-22] MEDS: TORSEMIDE 10 MG TAB PO SCH ×2 (08:08→20:16)
[2022-09-22] MEDS: CLOPIDOGREL BISULFATE 75 MG TAB PO SCH (08:08)
[2022-09-22] MEDS: ASCORBIC ACID 500 MG TAB PO SCH (08:08)
[2022-09-22] MEDS: ISOSORBIDE MONO EXTENDED REL 60 MG TABCR PO SCH (08:08)
[2022-09-22] MEDS: NITROGLYCERIN 0.4 MG/HR PATCH TD SCH (08:09)
[2022-09-22] MEDS: allopurinoL 100 MG TAB PO SCH (08:09)
[2022-09-22] MEDS: INSULIN ASPART PER UNIT SC SCH ×4 (08:10→21:50)
[2022-09-22] MEDS: FLUTICASONE PROPIONATE NA SPR 16 GM BTL NAE SCH (08:10)
[2022-09-22 08:13] LABS: INR 1.6 (0.9-1.1); Prothrombin Time 17.1 Seconds (9.0-12.0)
[2022-09-22 08:37] LABS: BUN Creatinine Ratio 34.5 (10-20); Calcium 9.6 mg/dl (8.5-10.1); Creatinine Clr Calc Pharmacy 29.9 ml/min; Est GFR (African American) 39.8 ml/min; Est GFR (Non-African American) 34.3 ml/min
[2022-09-22 09:28] LABS: Hematocrit (blood only) 34.5 % (37.0-47.0); Hemoglobin 10.8 g/dl (12.0-16.0); Mean Corpuscular Hemoglobin 29.9 pg (25.0-34.0); Mean Corpuscular Hgb Conc 31.3 g/dL (32.0-36.0); Mean Corpuscular Volume 95.6 fL (80.0-100.0); Mean Platelet Volume 10.4 fL (9.4-12.4); Platelet Count 292 K/uL (130-400); RDW Coefficient of Variation 14.6 % (11.5-14.5); RDW Standard Deviation 51.1 fL (36.4-46.3); Red Blood Count 3.61 M/uL (4.20-5.40); White Blood Count 7.01 K/ul (4.8-10.8)
[2022-09-22] MEDS ORDERED: hydrOXYzine HCl 10 MG TAB PO PRN (09:50)
--- NOTE | 2022-09-22 10:07 | XRay Report ---
XR ankle RT min 3V routine CLINICAL HISTORY: R ankle pain/erythema TECHNIQUE: 3 views of the right ankle were obtained. Comparison: None available at the time of this dictation. FINDINGS: Partial visualization of proximal tibial hardware. No acute fractures are present. Degenerative monahan es are seen. Soft tissue swelling is seen about the ankle. Vascular calcifications are seen. IMPRESSION: Soft tissue swelling throughout the leg without evidence of acute fracture. ACT 112: Negative or not required by law. Electronically signed by: Chandler Viera M.D. 09/22/2022 10:06 AM
--- NOTE | 2022-09-22 10:34 | Nephrology Progress Note ---
Date of Service September 22, 2022 Assessment & Plan Admission and Anticipated Discharge Date Admission Date: September 12, 2022 Subjective Assessment & Plan (1) MARY (acute kidney injury): Plan: MARY w/ again further improved creatinine this am compared to arrival > ischemic ATN d/t obligate diuretics to manage heart failure; given her obligate diuretic needs which are generally/subacutely increasing, suspect she will never again have normal renal function for long and that some of this admission will involve establishing new baseline renal function. her prior baseline in July had been 1.1-1.2 and high ones in August. Rec: Continue Current Diuretics and if K and Creat remains stable outpt she can be on Aldactone without K supplement. Accept a higher baseline creat to achieve better volume status. Bicarb is high but that could be just physiological compensation to account for her underlying Lung Disease. Her last ABG still showed Acidosis with ph of 7.33. will do ABG . If she has significant metabolic Alkalosis would recommend to lower torsemide dose first rather than give Diamox. Subjective No new issues. Feels better and less SOB Review of Systems Review of Systems: All systems reviewed & are unremarkable except as noted in Subjective Physical Exam Constitutional: well developed, well nourished, + frail appearing and cooperative; no acute distress Eyes: EOM intact bilaterally ENMT: Ears: no external ear abnormality Nose: no external nose abnormality Mouth: + dry oral mucous membranes Neck: no nuchal rigidity Respiratory: normal respiratory effort (while sitting in bed), + cough, able to speak in complete sentences and + paradoxical thoraco-abdominal movement; no labored breathing Auscultation: + diminished lung sounds and + crackles (throughout lower posterior mello) Cardiovascular: Rate/Rhythm: regular rate and regular rhythm Extremities: + edema (trace) Gastrointestinal (Abdomen): Inspection/Auscultation: normal bowel sounds Percussion/Palpation: abdomen soft; abdomen nontender Musculoskeletal: Extremities: strength 5/5 throughout Skin: no rashes, warm and dry Neurologic: randall, fluent speech, no tremor Psychiatric: Orientation: oriented x 3 Genitourinary: ruiz out Results & Data ([facility]) Vital Signs (Past 12 Hours) Vital Signs Temp Pulse Pulse Resp BP BP Pulse Ox 09/22/22 09:16 09/22/22 07:10 36.7 C 70 16 122/47 L 94 09/22/22 02:35 36.9 C 70 18 126/58 L 97 09/22/22 00:00 66 09/21/22 23:50 36.9 C 65 18 106/58 L 99 O2 Del Method O2 Flow Rate 09/22/22 09:16 Nasal Cannula 1 09/22/22 07:10 Nasal Cannula 1 09/22/22 02:35 Nasal Cannula 1.0 09/22/22 00:00 09/21/22 23:50 Nasal Cannula 1.0
--- NOTE | 2022-09-22 11:23 | Cardiology Progress Note ---
Date of Service September 22, 2022 Assessment & Plan (1) Acute on chronic combined systolic and diastolic heart failure: (2) Hypoxia: (3) Pulmonary edema: (4) Troponin level elevated: (5) CKD (chronic kidney disease): (6) Angina pectoris: (7) CAD (coronary artery disease): Plan This is a patient with complex medical and cardiac disease. Nephrology's note is appreciated. As mentioned she has not had angina for 48 hours and that is good. She will be a chronic problem with fluid balance. Admission and Anticipated Discharge Date Admission Date: September 12, 2022 Subjective The patient has not had any additional angina for 48 hours. She is lying flat in bed. She currently has a compression ulcer on the top of her foot which is new. Review of Systems Review of Systems: Complete review of systems is otherwise as stated above, negative, or noncontributory. Physical Exam Physical Exam: General: no acute distress and stated age Head: normocephalic, no masses, lesions, tenderness or abnormalities Eyes: conjunctiva are pink and non-injected, sclera clear Neck: supple, no adenopathy, no bruits, normal jugular venous pulse, no hepatojugular reflux Chest: normal shape and normal respiratory effort Lungs: clear to auscultation and percussion Cardiac Exam: - irregular rate & rhythm, no murmurs gallops or rubs - normal S1, normal S2 Pulses: 2(+) throughout Abdomen: abdomen soft, non-tender, no abnormal masses and no hepatosplenomegaly Musculoskeletal: no gait disturbance, no joint inflammation, no deforming arthritis Extremities: Bilateral lower extremity edema. Bandage on the top of the right foot. Neuro: grossly normal exam Results & Data ([facility]) Vital Signs (Past 12 Hours) Vital Signs Temp Pulse Pulse Resp BP BP Pulse Ox 09/22/22 09:16 09/22/22 07:10 36.7 C 70 16 122/47 L 94 09/22/22 02:35 36.9 C 70 18 126/58 L 97 09/22/22 00:00 66 09/21/22 23:50 36.9 C 65 18 106/58 L 99 O2 Del Method O2 Flow Rate 09/22/22 09:16 Nasal Cannula 1 09/22/22 07:10 Nasal Cannula 1 09/22/22 02:35 Nasal Cannula 1.0 09/22/22 00:00 09/21/22 23:50 Nasal Cannula 1.0 Laboratory Results Laboratory Results - last 24 hr 09/21/22 09/21/22 09/21/22 07:48 08:08 11:26 WBC RBC Hgb Hct MCV MCH MCHC RDW Std Deviation RDW Coeff of Omid Plt Count MPV PT 15.7 H INR 1.5 H Sodium 143 Potassium 3.7 Chloride 95 L Carbon Dioxide 43 H* Anion Gap 5 BUN 54 H Creatinine 1.42 H Est Cr Clr Drug Dosing 29.9 Est GFR ( Amer) 39.8 Est GFR (Non-Af Amer) 34.3 BUN/Creatinine Ratio 38.0 H Glucose 119 H POC Glucose 276 H Calcium 9.6 Phosphorus 4.0 Magnesium 1.8 09/21/22 09/21/22 09/22/22 16:26 21:15 06:29 WBC RBC Hgb Hct MCV MCH MCHC RDW Std Deviation RDW Coeff of Omid Plt Count MPV PT 17.1 H INR 1.6 H Sodium Potassium Chloride Carbon Dioxide Anion Gap BUN Creatinine Est Cr Clr Drug Dosing Est GFR ( Amer) Est GFR (Non-Af Amer) BUN/Creatinine Ratio Glucose POC Glucose 213 H 156 H Calcium Phosphorus Magnesium 09/22/22 09/22/22 09/22/22 06:29 06:29 07:21 WBC 7.01 RBC 3.61 L Hgb 10.8 L Hct 34.5 L MCV 95.6 MCH 29.9 MCHC 31.3 L RDW Std Deviation 51.1 H RDW Coeff of Omid 14.6 H Plt Count 292 MPV 10.4 PT INR Sodium 142 Potassium 4.0 Chloride 95 L Carbon Dioxide 42 H* Anion Gap 5 BUN 49 H Creatinine 1.42 H Est Cr Clr Drug Dosing 29.9 Est GFR ( Amer) 39.8 Est GFR (Non-Af Amer) 34.3 BUN/Creatinine Ratio 34.5 H Glucose 129 H POC Glucose 141 H Calcium 9.6 Phosphorus Magnesium 09/22/22 11:11 WBC RBC Hgb Hct MCV MCH MCHC RDW Std Deviation RDW Coeff of Omid Plt Count MPV PT INR Sodium Potassium Chloride Carbon Dioxide Anion Gap BUN Creatinine Est Cr Clr Drug Dosing Est GFR ( Amer) Est GFR (Non-Af Amer) BUN/Creatinine Ratio Glucose POC Glucose 192 H Calcium Phosphorus Magnesium Medications Administered Current Inpatient Medications Acetaminophen (Acetaminophen 325 Mg Tab) 650 mg PO Q4H PRN PRN Reason: Pain or Fever Stop: 10/13/22 03:09 Last Admin: 09/21/22 19:56 Dose: 650 mg Allopurinol (Allopurinol 100 Mg Tab) 100 [facility] [place] Stop: 10/20/22 09:29 Last Admin: 09/22/22 08:09 Dose: 100 mg Ascorbic Acid (Ascorbic Acid 500 Mg Tab) 250 mg PO [facility] Stop: 10/13/22 08:59 Last Admin: 09/22/22 08:08 Dose: 250 mg Atorvastatin Calcium (Atorvastatin 40 Mg Tab) 80 mg PO [facility] Stop: 10/13/22 08:59 Last Admin: 09/22/22 08:05 Dose: 80 mg Cefuroxime Axetil (Cefuroxime Axetil 500 Mg Tab) 500 mg PO Q24H [facility]; Protocol Stop: 09/28/22 08:59 Last Admin: 09/22/22 08:07 Dose: 500 mg Clopidogrel Bisulfate (Clopidogrel Bisulfate 75 Mg Tab) 75 mg PO [facility] Stop: 10/13/22 08:59 Last Admin: 09/22/22 08:08 Dose: 75 mg Dextrose (Dextrose 50% 50 Ml Syringe) 25 - 50 ml IV UD PRN; Protocol PRN Reason: Hypoglycemia Protocol Stop: 10/13/22 03:09 Digoxin (Digoxin 0.125 Mg Tab) 0.125 mg PO MoWeFr [facility] Stop: 10/21/22 15:59 Last Admin: 09/21/22 16:06 Dose: 0.125 mg Ferrous Sulfate (Ferrous Sulfate 325 Mg Tab) 325 mg PO [facility] Stop: 10/13/22 08:59 Last Admin: 09/22/22 08:07 Dose: 325 mg Fluticasone Propionate (Fluticasone Propionate Na Spr 16 Gm Btl) 2 sprays JAQUELIN DAILY [facility] Stop: 10/13/22 08:59 Last Admin: 09/22/22 08:10 Dose: 2 sprays Gabapentin (Gabapentin 300 Mg Cap) 600 mg PO [facility] Stop: 10/13/22 03:09 Last Admin: 09/21/22 19:57 Dose: 600 mg Glucagon (Glucagon For Inj 1 Mg Vial) 1 mg SQ UD PRN; Protocol PRN Reason: Hypoglycemia Protocol Stop: 10/13/22 03:09 Glucose (Glucose 40% Gel 15 Gm Tube) 15 - 30 gm PO UD PRN; Protocol PRN Reason: Hypoglycemia Protocol Stop: 10/13/22 03:09 Glucose (Glucose 10 Tab/Tube) 4 - 8 tab PO UD PRN; Protocol PRN Reason: Hypoglycemia Treatment Stop: 10/13/22 03:09 Guaifenesin (Guaifenesin 600 Mg Tabcr) 600 mg PO Q12 [facility] Stop: 10/16/22 20:59 Last Admin: 09/22/22 08:06 Dose: 600 mg Hydroxyzine HCl (Hydroxyzine Hcl 10 Mg Tab) 10 mg PO Q6H PRN PRN Reason: Itching Stop: 10/22/22 09:49 Insulin Aspart (Insulin Aspart Per Unit) 0 units SC ACHS [facility] Stop: 10/13/22 11:29 Last Admin: 09/22/22 08:10 Dose: 9 units Isosorbide Mononitrate (Isosorbide [place] Extended Rel 60 Mg Tabcr) 120 mg PO QAM [facility] Stop: 10/13/22 08:59 Last Admin: 09/22/22 08:08 Dose: 120 mg Lactobacillus Acidophilus (Advanced Probiotic 1250 Mg Capsule) 2 cap PO DAILY [facility] Stop: 10/19/22 12:44 Last Admin: 09/22/22 08:07 Dose: 2 cap Latanoprost (Latanoprost 0.005% Op Soln 2.5 Ml Btl) 1 drops OPB HS [facility] Stop: 10/13/22 03:09 Last Admin: 09/21/22 19:56 Dose: 1 drops Levothyroxine Sodium (Levothyroxine Sodium 25 Mcg Tablet) 25 mcg PO DAILYBB [facility] Stop: 10/13/22 06:29 Last Admin: 09/22/22 04:00 Dose: 25 mcg Magnesium Oxide (Magnesium Oxide 400 Mg Tab) 400 mg PO AMHS [facility] Stop: 10/13/22 05:59 Last Admin: 09/22/22 08:05 Dose: 400 mg Melatonin (Melatonin 3 Mg Tab) 3 mg PO HS PRN PRN Reason: Sleep Stop: 10/13/22 21:59 Last Admin: 09/19/22 22:17 Dose: 3 mg Metoprolol Succinate (Metoprolol Succ 50mg Ext Rel Tab) 100 mg PO HS [facility] Stop: 10/13/22 03:09 Last Admin: 09/21/22 19:57 Dose: 100 mg Metoprolol Succinate (Metoprolol Succ 50mg Ext Rel Tab) 150 mg [facility] [place] Stop: 10/13/22 08:59 Last Admin: 09/22/22 08:06 Dose: 150 mg Miscellaneous (Carbohydrates For Hypoglycemia ) 15 - 30 gm PO UD PRN PRN Reason: Hypoglycemia Protocol Stop: 10/13/22 03:09 Miscellaneous (Remove Nitro-Dur Patch) 1 each N/A DAILY@2100 [facility] Stop: 10/19/22 20:59 Last Admin: 09/21/22 20:00 Dose: 1 each Netarsudil (Netarsudil Mesylate 37 Drops/2.5 Ml Btl) 1 drops OPB [facility] Stop: 10/15/22 20:59 Last Admin: 09/21/22 19:59 Dose: 1 drops Nitroglycerin (Nitroglycerin Sl 0.4 Mg/Tab Tab) 0.4 mg SL PRN PRN PRN Reason: Chest Pain Stop: 10/17/22 03:19 Last Admin: 09/18/22 10:27 Dose: 0.4 mg Nitroglycerin (Nitroglycerin 0.4 Mg/Hr Patch) 1 patch TD [facility] Stop: 10/19/22 09:14 Last Admin: 09/22/22 08:09 Dose: 1 patch Pantoprazole Sodium (Pantoprazole 40 Mg Tab) 40 mg PO [facility] [place] Stop: 10/13/22 08:59 Last Admin: 09/22/22 08:07 Dose: 40 mg Ropinirole HCl (Ropinirole Hcl 0.25 Mg Tablet) 0.25 mg PO [facility] Stop: 10/13/22 03:09 Last Admin: 09/21/22 19:57 Dose: 0.25 mg Sennosides (Senna 8.6 Mg Tab) 8.6 mg PO [facility] Stop: 10/15/22 12:44 Last Admin: 09/22/22 08:07 Dose: 8.6 mg Torsemide (Torsemide 10 Mg Tab) 20 mg PO QPM [facility] Stop: 10/20/22 20:59 Last Admin: 09/21/22 19:57 Dose: 20 mg Torsemide (Torsemide 10 Mg Tab) 30 mg PO [facility] [place] Stop: 10/21/22 08:59 Last Admin: 09/22/22 08:08 Dose: 30 mg Warfarin Sodium (Warfarin Sod 7.5 Mg Tab) 7.5 mg PO DAILY@1600 [facility] Stop: 10/21/22 15:59 Last Admin: 09/21/22 16:08 Dose: 7.5 mg (1) Pulmonary edema Chronicity: acute Qualified Code(s): J81.0 - Acute pulmonary edema
--- NOTE | 2022-09-22 15:03 | Hospitalist Progress Note ---
Date of Service September 22, 2022 Assessment & Plan (1) Acute on chronic combined systolic and diastolic heart failure: Plan: Patient is an 82 yr female with H/O chronic systolic and diastolic dysfunction, CAD w/ class 3-4 angina, PAF, tachy-tanner syndrome s/p PPM placement, aortic stenosis s/p TAVR, chronic AC, mitral stenosis, pulmonary HTN, DM2 with neuropathy, carotid stenosis s/o bilateral carotid endarterectomies, PVD, HTN, hypothyroidism, hyperlipidemia, GERD, chronic laryngospasm, RLS, glaucoma, and depression who presented today with progressive weakness and worsening respiratory status. Found to by hypoxic on presentation with a pulseox in the 70s, has responded to supplemental O2. Acute on chronic systolic and diastolic heart failure Acute on chronic respiratory failure with hypoxia Chronic oxygen dependency: On 2 L at bedtime at baseline Pulmonary edema secondary to above Severe arctic valve stenosis S/P TAVR in 2019 Chronic mitral stenosis Pulmonary hypertension Metabolic alkalosis --CXR: There are moderate bilateral pleural effusions, somewhat increased from the prior exam. Airspace opacities compatible with atelectasis, superimposed pneumonia/aspiration cannot be entirely excluded. Stable cardiomegaly. --ECHO: Normal LV chamber size with mild concentric LVH, EF 35 to 40%. Large sized septal, apical, lateral and inferior wall motion abnormality. Grade 2 diastolic dysfunction. Bioprosthetic aortic valve. Gradient is normal for the prosthetic aortic valve. Mild intra-abdominal aortic regurgitation. Severe mitral annular calcification. Mild mitral regurgitation. Moderate mitral stenosis. Moderate tricuspid regurgitation. Pulmonary artery hypertension present with PASP of 50 mmHg. Moderate size left pleural effusion. --Chest US:Limited exam secondary to lack of patient cooperation. Bilateral pleural effusions are redemonstrated. The right pleural effusion demonstrates a volume of approximately 174 mL. The left pleural effusion demonstrates a volume of approximately 279 mL. -- Offered thoracentesis: Patient refused --Monitor I's and O's, daily weight, volume status Continue torsemide as per cardiology/nephrology. Appreciate cardiology/nephrology input Wean off of supplemental oxygen during daytime as able Can continue supplemental oxygen 2 L at bedtime Continue current diuretic Needs follow-up with cardiology upon discharge Check VBG in AM Angina pectoris Inoperable coronary artery disease Intolerance to Ranexa Continue Plavix, Lipitor, isosorbide, metoprolol, nitroglycerin Added digoxin UTI Urine culture: E.coli, pansensitive IV Ceftriaxone>> changed to Ceftin Ankle pain / poss. gout flare -Completed prednisone course Elevated uric acid levels Continue allopurinol (2) Hypoxia: Plan: secondary to above May need 2 step prior to discharge (3) MARY (acute kidney injury): Plan: MARY Likely Ischemic ATN Cr 1.4 today Monitor renal function Avoid nephrotoxic agents as able Appreciate Nephrology Input (4) Acute hyperkalemia: Plan: Resolved Potassium supplement discontinued Received Lokelma (5) Chronic anticoagulation: Plan: INR 1.6 today Continue Coumadin to 7.5 mg today monitor INR (6) Angina pectoris: Plan: as above (7) ASCVD (arteriosclerotic cardiovascular disease): (8) Diabetes mellitus, type 2: Plan: Holding outpatient regimen. A1c 07/13/22 was 8.3% - Sliding scale insulin - Diabetic diet, BSG ACHS (9) Diabetic neuropathy: Plan: Continue gabapentin (10) GERD (gastroesophageal reflux disease): Plan: Continue PPI therapy (11) Hyperlipidemia: Plan: Continue statin (12) Hypertension: (13) Glaucoma: Plan Code Status: Full Code DVT Px: Warfarin Disposition Rehab as able Admission and Anticipated Discharge Date Admission Date: September 12, 2022 Subjective Patient is seen and examined at bedside Reports blister on Right foot which is itchy No other complaints Still has significant leg edema Denies any chest pain, dyspnea, dizziness, nausea, abdominal pain Saturating low 90s on room air Review of Systems Review of Systems: All systems reviewed & are unremarkable except as noted in Subjective Physical Exam Physical Exam: Physical Exam: Vitals signs as noted above General Appearance:Moderately built and nourished, no apparent distress Head: normocephalic, Atraumatic Eyes: normal inspection, EOMI Neck: supple, Trachea midline Respiratory/Chest: Normal breath sounds, CTA, No accessory muscle use Cardiovascular: S1, S2, + murmur Abdomen/GI:Soft, Non tender, Bowel sounds present Extremities/Musculoskeletal:normal inspection, B/L LE 2+ edema Neurologic/Psych:AAOX3, grossly no focal neurological deficits Skin: normal color, warm Results & Data Results & Data ([facility]) Vital Signs (Past 12 Hours) Vital Signs Temp Pulse Pulse Pulse Resp BP BP 09/22/22 08:00 72 09/22/22 12:56 09/22/22 11:21 36.7 C 70 18 113/51 L 115/53 L 09/22/22 09:16 09/22/22 07:10 36.7 C 70 16 122/47 L Pulse Ox O2 Del Method O2 Flow Rate 09/22/22 08:00 09/22/22 12:56 93 Room Air 09/22/22 11:21 99 Nasal Cannula 1 09/22/22 09:16 Nasal Cannula 1 09/22/22 07:10 94 Nasal Cannula 1 Laboratory Results Short CBC 09/22/22 Range/Units 06:29 WBC 7.01 (4.8-10.8) K/ul Hgb 10.8 L (12.0-16.0) g/dl Hct 34.5 L (37.0-47.0) % Plt Count 292 (130-400) K/uL BMP 09/22/22 06:29 Sodium 142 Potassium 4.0 Chloride 95 L Carbon Dioxide 42 H* BUN 49 H Creatinine 1.42 H Glucose 129 H Calcium 9.6
[2022-09-22] MEDS: WARFARIN SOD 7.5 MG TAB PO SCH (16:40)
[2022-09-22] MEDS: GABAPENTIN 300 MG CAP PO SCH (20:16)
[2022-09-22] MEDS: rOPINIRole HCL 0.25 MG TABLET PO SCH (20:17)
[2022-09-22] MEDS: LATANOPROST 0.005% OP SOLN 2.5 ML BTL OPB SCH (20:17)
[2022-09-22] MEDS: NETARSUDIL MESYLATE 37 DROPS/2.5 ML BTL OPB SCH (20:17)
[2022-09-22] MEDS: MELATONIN 3 MG TAB PO PRN (21:50)
[2022-09-23] MEDS: LEVOTHYROXINE SODIUM 25 MCG TABLET PO SCH (06:05)
[2022-09-23 07:12] LABS: Base Excess VBG 16.1 mEq/L; HCO3 VBG 43 mmol/L; Oxygen Saturation VBG < 60.0 %; PCO2 VBG 65 mmHg (38-50); PO2 VBG 17 mmHg; pH VBG 7.43 (7.36-7.41)
[2022-09-23 07:45] LABS: Calcium 9.5 mg/dl (8.5-10.1)
[2022-09-23 07:50] LABS: INR 1.9 (0.9-1.1); Prothrombin Time 19.4 Seconds (9.0-12.0)
[2022-09-23 07:53] LABS: BUN Creatinine Ratio 30.3 (10-20); Creatinine Clr Calc Pharmacy 27.2 ml/min; Est GFR (African American) 35.8 ml/min; Est GFR (Non-African American) 30.9 ml/min
[2022-09-23] MEDS: MAGNESIUM OXIDE 400 MG TAB PO SCH (07:59)
[2022-09-23] MEDS: guaiFENesin 600 MG TABCR PO SCH (07:59)
[2022-09-23] MEDS: FLUTICASONE PROPIONATE NA SPR 16 GM BTL NAE SCH (08:00)
[2022-09-23] MEDS: TORSEMIDE 10 MG TAB PO SCH (08:01)
[2022-09-23] MEDS: CLOPIDOGREL BISULFATE 75 MG TAB PO SCH (08:01)
[2022-09-23] MEDS: cefUROXime axetil 500 MG TAB PO SCH (08:01)
[2022-09-23] MEDS: ADVANCED PROBIOTIC 1250 MG CAPSULE PO SCH (08:01)
[2022-09-23] MEDS: ISOSORBIDE MONO EXTENDED REL 60 MG TABCR PO SCH (08:01)
[2022-09-23] MEDS: PANTOprazole 40 MG TAB PO SCH (08:01)
[2022-09-23] MEDS: ATORVASTATIN 40 MG TAB PO SCH (08:01)
[2022-09-23] MEDS: allopurinoL 100 MG TAB PO SCH (08:01)
[2022-09-23] MEDS: FERROUS SULFATE 325 MG TAB PO SCH (08:02)
[2022-09-23] MEDS: METOPROLOL SUCC 50MG EXT REL TAB PO SCH (08:02)
[2022-09-23] MEDS: SENNA 8.6 MG TAB PO SCH (08:02)
[2022-09-23] MEDS: NITROGLYCERIN 0.4 MG/HR PATCH TD SCH (08:02)
[2022-09-23] MEDS: ASCORBIC ACID 500 MG TAB PO SCH (08:02)
[2022-09-23] MEDS: INSULIN ASPART PER UNIT SC SCH ×2 (09:05→12:39)
--- NOTE | 2022-09-23 10:04 | Nephrology Progress Note ---
Date of Service September 23, 2022 Assessment & Plan Admission and Anticipated Discharge Date Admission Date: September 12, 2022 Subjective Subjective Assessment & Plan (1) MARY (acute kidney injury): Plan: MARY w/ again further improved creatinine this am compared to arrival > ischemic ATN d/t obligate diuretics to manage heart failure; given her obligate diuretic needs which are generally/subacutely increasing, suspect she will never again have normal renal function for long and that some of this admission will involve establishing new baseline renal function. her prior baseline in July had been 1.1-1.2 and high ones in August. Rec: Continue Current Diuretics and if K and Creat remains stable outpt she can be on Aldactone without K supplement. Accept a higher baseline creat to achieve better volume status. Bicarb is high. Could not do ABG so did VBG--pH is 7.43 so Not really Alkalotic for venous Sample. High bicarb is physiological compensation to account for her underlying Lung Disease. No need to give Diamox. Will sign off and call if any new issues. Subjective No new issues. Feels better and less SOB Review of Systems Review of Systems: All systems reviewed & are unremarkable except as noted in Subjective Physical Exam Constitutional: well developed, well nourished, + frail appearing and cooperative; no acute distress Eyes: EOM intact bilaterally ENMT: Ears: no external ear abnormality Nose: no external nose abnormality Mouth: + dry oral mucous membranes Neck: no nuchal rigidity Respiratory: normal respiratory effort (while sitting in bed), + cough, able to speak in complete sentences and + paradoxical thoraco-abdominal movement; no labored breathing Auscultation: + diminished lung sounds and + crackles (throughout lower posterior mello) Cardiovascular: Rate/Rhythm: regular rate and regular rhythm Extremities: + edema (trace) Gastrointestinal (Abdomen): Inspection/Auscultation: normal bowel sounds Percussion/Palpation: abdomen soft; abdomen nontender Musculoskeletal: Extremities: strength 5/5 throughout Skin: no rashes, warm and dry Neurologic: randall, fluent speech, no tremor Psychiatric: Orientation: oriented x 3 Genitourinary: ruiz out Results & Data ([facility]) Vital Signs (Past 12 Hours) Vital Signs Temp Pulse Pulse Resp BP Pulse Ox O2 Del Method 09/23/22 06:56 36.4 C L 68 18 110/42 L 96 Nasal Cannula 09/23/22 03:41 37.0 C 70 18 102/58 L 96 Nasal Cannula 09/22/22 23:52 72 09/22/22 22:28 37.1 C 72 16 117/64 99 Nasal Cannula O2 Flow Rate 09/23/22 06:56 09/23/22 03:41 09/22/22 23:52 09/22/22 22:28 1.0
--- NOTE | 2022-09-23 11:45 | Hospitalist Progress Note ---
Date of Service September 23, 2022 Assessment & Plan (1) Acute on chronic combined systolic and diastolic heart failure: Plan: Patient is an 82 yr female with H/O chronic systolic and diastolic dysfunction, CAD w/ class 3-4 angina, PAF, tachy-tanner syndrome s/p PPM placement, aortic stenosis s/p TAVR, chronic AC, mitral stenosis, pulmonary HTN, DM2 with neuropathy, carotid stenosis s/o bilateral carotid endarterectomies, PVD, HTN, hypothyroidism, hyperlipidemia, GERD, chronic laryngospasm, RLS, glaucoma, and depression who presented today with progressive weakness and worsening respiratory status. Found to by hypoxic on presentation with a pulseox in the 70s, has responded to supplemental O2. Acute on chronic systolic and diastolic heart failure Acute on chronic respiratory failure with hypoxia Chronic oxygen dependency: On 2 L at bedtime at baseline Pulmonary edema secondary to above Severe arctic valve stenosis S/P TAVR in 2019 Chronic mitral stenosis Pulmonary hypertension Metabolic alkalosis --CXR: There are moderate bilateral pleural effusions, somewhat increased from the prior exam. Airspace opacities compatible with atelectasis, superimposed pneumonia/aspiration cannot be entirely excluded. Stable cardiomegaly. --ECHO: Normal LV chamber size with mild concentric LVH, EF 35 to 40%. Large sized septal, apical, lateral and inferior wall motion abnormality. Grade 2 diastolic dysfunction. Bioprosthetic aortic valve. Gradient is normal for the prosthetic aortic valve. Mild intra-abdominal aortic regurgitation. Severe mitral annular calcification. Mild mitral regurgitation. Moderate mitral stenosis. Moderate tricuspid regurgitation. Pulmonary artery hypertension present with PASP of 50 mmHg. Moderate size left pleural effusion. --Chest US:Limited exam secondary to lack of patient cooperation. Bilateral pleural effusions are redemonstrated. The right pleural effusion demonstrates a volume of approximately 174 mL. The left pleural effusion demonstrates a volume of approximately 279 mL. -- Offered thoracentesis: Patient refused --Monitor I's and O's, daily weight, volume status Continue torsemide as per cardiology/nephrology. Appreciate cardiology/nephrology input Wean off of supplemental oxygen during daytime as able Needs follow-up with cardiology upon discharge 2 step : Continue 2L at rest and with activity Refused rehab placement Plan to discharge home with HH Angina pectoris Inoperable coronary artery disease Intolerance to Ranexa Continue Plavix, Lipitor, isosorbide, metoprolol, nitroglycerin Added digoxin UTI Urine culture: E.coli, pansensitive IV Ceftriaxone>> changed to Ceftin Ankle pain / poss. gout flare -Completed prednisone course Elevated uric acid levels Continue allopurinol (2) Hypoxia: Plan: secondary to above May need 2 step prior to discharge (3) MARY (acute kidney injury): Plan: MARY Likely Ischemic ATN Cr 1.5 today Monitor renal function Avoid nephrotoxic agents as able Appreciate Nephrology Input (4) Acute hyperkalemia: Plan: Resolved Potassium supplement discontinued Received Lokelma (5) Chronic anticoagulation: Plan: INR 1.6 today Continue Coumadin to 7.5 mg today monitor INR (6) Angina pectoris: Plan: as above (7) ASCVD (arteriosclerotic cardiovascular disease): (8) Diabetes mellitus, type 2: Plan: Holding outpatient regimen. A1c 07/13/22 was 8.3% - Sliding scale insulin - Diabetic diet, BSG ACHS (9) Diabetic neuropathy: Plan: Continue gabapentin (10) GERD (gastroesophageal reflux disease): Plan: Continue PPI therapy (11) Hyperlipidemia: Plan: Continue statin (12) Hypertension: (13) Glaucoma: Plan Code Status: Full Code DVT Px: Warfarin Disposition Refused Rehab Plan to discharge home with Admission and Anticipated Discharge Date Admission Date: September 12, 2022 Subjective Patient is seen and examined at bedside States feeling well today No new complaints Right foot itchiness resolved Not interested in Rehab placement Prefers to be discharged home Denies any chest pain, dyspnea, dizziness, nausea, abdominal pain Discussed with Cardiology and Nephrology today Review of Systems Review of Systems: All systems reviewed & are unremarkable except as noted in Subjective Physical Exam Physical Exam: Physical Exam: Vitals signs as noted above General Appearance:Moderately built and nourished, no apparent distress Head: normocephalic, Atraumatic Eyes: normal inspection, EOMI Neck: supple, Trachea midline Respiratory/Chest: Normal breath sounds, CTA, No accessory muscle use Cardiovascular: S1, S2, + murmur Abdomen/GI:Soft, Non tender, Bowel sounds present Extremities/Musculoskeletal:normal inspection, B/L LE 2+ edema Neurologic/Psych:AAOX3, grossly no focal neurological deficits Skin: normal color, warm Results & Data Results & Data ([facility]) Vital Signs (Past 12 Hours) Vital Signs Temp Pulse Pulse Resp BP Pulse Ox O2 Del Method 09/23/22 08:00 68 09/23/22 06:56 36.4 C L 68 18 110/42 L 96 Nasal Cannula 09/23/22 03:41 37.0 C 70 18 102/58 L 96 Nasal Cannula 09/22/22 23:52 72 Laboratory Results [facility] 09/23/22 07:01 Sodium 141 Potassium 4.0 Chloride 94 L Carbon Dioxide 41 H* BUN 47 H Creatinine 1.55 H Glucose 172 H Calcium 9.5
--- NOTE | 2022-09-23 12:19 | Discharge Summary ---
Date of Service September 23, 2022 Admission HPI Per Admitting Provider This is an 82 y/o female with a complicated PMH including acute on chronic HFrEF with diastolic dysfunction, CAD w/ class 3-4 angina, PAF, tachy-tanner syndrome s/p PPM placement, aortic stenosis s/p TAVR, chronic AC, mitral stenosis, pulmonary HTN, DM2 with neuropathy, carotid stenosis s/o bilateral carotid endarterectomies, PVD, HTN, hypothyroidism, hyperlipidemia, GERD, chronic laryngospasm, RLS, glaucoma, and depression who presents to the ED today with worsening weakness and trouble breathing with any exertion. Pt was admitted to this facility 07/12-07/17/22 with acute on chronic heart failure, managed with IV diuresis then transitioned to oral. Ranexa added but pt did not tolerate. Also treated for UTI with Rocephin then Keflex. Did well at home for a few days then gradual return of symptoms. Readmitted 08/03-08/06/22 with hypoxia due to acute on chronic combined heart failure. Again treated with IV diuresis, then transitioned to oral furosemide and discharged home. Pt and family felt like sh e never got back to baseline and gradually declined again at home. She has been following with cardiology closely - furosemide changed to torsemide 60 mg daily with improvement in fluid overload. However, creatinine increased from ~0.9 to 1.9 on 09/01/22 so torsemide decreased to 40 mg daily. Daughter notes pt with increased tremulousness since being on the torsemide. Over the last few days, she has been worsening again with increased LERNER and exertional chest pain. She was started on a nitro patch for class 4 angina earlier this month, which pt feels has helped somewhat. However, she is still taking a sublingual nitro before bed most evenings for chest pain, which seems to help. She has become more short of breath with exertion - was using O2 only at night but started using more frequently yesterday. Pulseox at home has been low but they attributed to machine malfunction. Presenting pulseox in the ED today was apparently in the 70s and daughter noted some perioral cyanosis. She is feeling somewhat better on oxygen in the ED. However, she continues to have chest pain with any exertion, including going to the bathroom, and associated dyspnea. Takes a few minutes to note improvement with rest. When evaluated, she had just returned from the bathroom and noted some mild residual chest burning at present. Daughter also noted that pt seemed more confused today than she had been. Peripheral edema has been improved from prior with change to torsemide. She does not note significant weight gain. Appetite is decreased but denies N/V/D. Mild cough yesterday but denies fevers, chills, sweats, sore throat, congestion. Chronic rhinorrhea related to allergies. Does take her blood sugars daily at home - notes sugars in the mornings are in the 120s, which is unchanged from usual for her. Admission Exam Per Admitting Provider Physical Exam Constitutional: + frail appearing and cooperative; no ac council distress Eyes: PERRL, conjunctivae normal, anicteric sclerae ENMT: external ear and nose normal, oropharynx normal Neck: trachea midline Respiratory: no respiratory distress and does not use accessory muscles Auscultation: + diminished lung sounds mildly increased work of breathing after exertion to bathroom Cardiovascular: Rate/Rhythm: regular rate and regular rhythm Heart Sounds: + murmur Vessels: radial pulses present Extremities: + edema (1+ bilateral LE) Gastrointestinal (Abdomen): Inspection/Auscultation: normal bowel sounds; abdomen not distended Percussion/Palpation: abdomen soft; abdomen nontender Musculoskeletal: Head/Neck/Chest: normocephalic, head atraumatic and neck supple Skin: few areas of ecchymosis on arms Neurologic: moves all extremities; no focal motor deficits Psychiatric: A+Ox3, euthymic affect Principal Diagnosis Acute on chronic systolic and diastolic heart failure Acute on chronic respiratory failure with hypoxia Angina pectoris Urinary tract infection Acute kidney injury Discharge Data Allergies Allergy/AdvReac Type Severity Reaction Status Date / Time empagliflozin Allergy Intermediate BLOOD IN Verified 08/03/22 21:31 [From Jardiance] URINE, BLADDER INFECTION carbamazepine Allergy Mild RASH Verified 08/03/22 21:31 oxaprozin Allergy Mild RASH/HIVES Verified 08/03/22 21:31 valproic acid Allergy Mild HEAD-TOE Verified 08/03/22 21:31 RASH ranolazine [From Ranexa] AdvReac Dizziness Verified 08/04/22 03:12 Consultations 09/12/22 15:31 ED Decision to Admit Stat 09/13/22 03:10 Consult Cardiology Routine Consult Nephrology Routine Procedures Performed Laboratory Results WBC 7.01 K/ul (4.8-10.8) 09/22/22 06: RBC 3.61 M/uL (4.20-5.40) L 09/22/22 06:29 Hgb 10.8 g/dl (12.0-16.0) L 09/22/22 06:29 Hct 34.5 % (37.0-47.0) L 09/22/22 06:29 MCV 95.6 fL (80.0-100.0) 09/22/22 06:29 MCH 29.9 pg (25.0-34.0) 09/22/22 06: MCHC 31.3 g/dL (32.0-36.0) L 09/22/22 06: RDW Std Deviation 51.1 fL (36.4-46.3) H 09/22/22 06: RDW Coeff of Omid 14.6 % (11.5-14.5) H 09/22/22 06: Plt Count 292 K/uL (130-400) 09/22/22 06:29 MPV 10.4 fL (9.4-12.4) 09/22/22 06:29 Immature Gran % (Auto) 0.6 % 09/12/22 14:17 Neut % (Auto) 72.7 % 09/12/22 14:17 Lymph % (Auto) 16.5 % 09/12/22 14:17 Traill % (Auto) 9.4 % 09/12/22 14:17 Eos % (Auto) 0.4 % 09/12/22 14:17 Baso % (Auto) 0.4 % 09/12/22 14:17 Neut # (Auto) 5.20 K/uL (1.4-6.5) 09/12/22 14:17 Lymph # (Auto) 1.18 K/uL (1.2-3.4) L 09/12/22 14:17 Traill # (Auto) 0.67 K/uL (0.24-0.82) 09/12/22 14:17 Eos # (Auto) 0.03 K/uL (0-0.50) 09/12/22 14:17 Baso # (Auto) 0.03 K/uL (0-0.2) 09/12/22 14:17 Immature Gran # (Auto) 0.04 K/uL (0.00-0.02) H 09/12/22 14:17 Absolute Nucleated RBC 0.02 K/uL (0-0) H 09/12/22 14:17 Nucleated RBC % (auto) 0.3 % 09/12/22 14:17 PT 19.4 Seconds (9.0-12.0) H 09/23/22 07:01 INR 1.9 (0.9-1.1) H 09/23/22 07:01 APTT 35.6 Seconds (21.0-31.0) H 09/12/22 14:17 PTT Ratio 1.3 09/12/22 14:17 VBG pH 7.43 (7.36-7.41) H 09/23/22 07:01 VBG pCO2 65 mmHg (38-50) H 09/23/22 07:01 VBG pO2 17 mmHg 09/23/22 07:01 VBG HCO3 43 mmol/L 09/23/22 07:01 VBG O2 Saturation < 60.0 % 09/23/22 07:01 VBG Base Excess 16.1 mEq/L 09/23/22 07:01 Methemoglobin < 0.7 % (0.0-1.5) 09/12/22 14:17 Sodium 141 mmol/L (136-145) 09/23/22 07:01 Potassium 4.0 mmol/L (3.5-5.1) 09/23/22 07:01 Chloride 94 mmol/L (98-107) L 09/23/22 07:01 Carbon Dioxide 41 mmol/L (21-32) H* 09/23/22 07:01 Anion Gap 6 (3-11) 09/23/22 07:01 BUN 47 mg/dl (6-23) H 09/23/22 07:01 Creatinine 1.55 mg/dl (0.6-1.2) H 09/23/22 07:01 Est Cr Clr Drug Dosing 27.2 ml/min 09/23/22 07:01 Est GFR ( Amer) 35.8 ml/min 09/23/22 07:01 Est GFR (Non-Af Amer) 30.9 ml/min 09/23/22 07:01 BUN/Creatinine Ratio 30.3 (10-20) H 09/23/22 07:01 Glucose 172 mg/dl (70-99(Fasting)) H 09/23/22 07:01 POC Glucose 229 mg/dl (70-99) H 09/23/22 11:09 Lactate 3.5 mmol/L (0.4-2.0) H* 09/12/22 16:17 Uric Acid 12.9 mg/dl (2.6-7.2) H 09/15/22 06:35 Calcium 9.5 mg/dl (8.5-10.1) 09/23/22 07:01 Phosphorus 4.0 mg/dl (2.5-4.9) 09/21/22 07:48 Magnesium 1.8 mg/dl (1.7-2.4) 09/21/22 07:48 Total Bilirubin 0.7 mg/dl (0.2-1.0) 09/12/22 14:17 Direct Bilirubin 0.3 mg/dl (0-0.2) H 09/12/22 14:17 AST 27 U/L (13-39) 09/12/22 14:17 ALT 18 U/L (7-52) 09/12/22 14:17 Alkaline Phosphatase 62 U/L (34-104) 09/12/22 14:17 Troponin I High Sens 253.3 pg/ml (0-14) H* D 09/13/22 07:50 B-Natriuretic Peptide 4287 pg/ml (0-100) H 09/12/22 14:17 Total Protein 6.7 gm/dl (6.0-8.3) 09/12/22 14:17 Albumin 3.8 gm/dl (3.4-5.0) 09/12/22 14:17 Procalcitonin < 0.05 ng/ml (0-0.5) 09/12/22 14:17 Urine Color Yellow 09/12/22 17:22 Urine Appearance Cloudy (Clear) A 09/12/22 17:22 Urine pH 6.0 (4.5-7.5) 09/12/22 17:22 Ur Specific Conklin 1.010 (1.000-1.030) 09/12/22 17:22 Urine Protein Negative (Negative) 09/12/22 17:22 Urine Glucose (UA) Negative (Negative) 09/12/22 17:22 Urine Ketones Negative (Negative) 09/12/22 17:22 Urine Blood Trace (Negative) H 09/12/22 17:22 Urine Nitrite Positive (Negative) A 09/12/22 17:22 Urine Bilirubin Negative (Negative) 09/12/22 17:22 Urine Urobilinogen Negative (Negative) 09/12/22 17:22 Ur Leukocyte Esterase 2+ (Negative) H 09/12/22 17:22 Urine WBC (Auto) >30 /hpf (0-5) H 09/12/22 17:22 Urine RBC (Auto) 0-4 /hpf (0-4) 09/12/22 17:22 U Hyaline Cast (Auto) 10-30 /lpf (0-5) H 09/12/22 17:22 U Epithel Cells (Auto) 0-5 /lpf (0-5) 09/12/22 17:22 Urine Bacteria (Auto) 4+ (Negative) H 09/12/22 17:22 SARS-CoV-2, RNA, NAAT NEGATIVE (NEGATIVE) 09/12/22 Unknown Impressions Chest Ultrasound 09/13/22 03:10 US effusion-chest/mediastinum HISTORY: 82 years-old Female bilateral - quantify pleural effusions STUDY in a patient with pleural effusions COMPARISON: Chest radiograph 09/12/2022 TECHNIQUE: Multiple real-time sonographic images of the chest were obtained assessing grayscale appearance FINDINGS: Limited exam secondary to lack of patient cooperation. Bilateral pleural effusions are redemonstrated. The right pleural effusion demonstrates a volume of approximately 174 mL. The left pleural effusion demonstrates a volume of approximately 279 mL. IMPRESSION: Bilateral pleural effusions as above, left greater than right. ACT 112: Negative or not required by law. The above report was generated using voice recognition software. It may contain grammatical, syntax or spelling errors. Electronically signed by: Lorenzo Calabrese M.D. 09/13/2022 7:05 AM Chest X-Ray 09/19/22 09:08 XR chest 2V PA/lateral CLINICAL HISTORY: chf. pleural effusions by exam TECHNIQUE: 2 views of the chest were obtained. Comparison: Comparison is made to chest radiograph 09/16/2022 FINDINGS: Dual lead pacemaker is seen. Cardiomegaly is noted. Valvular prosthesis is again seen. Airspace opacities in the lower lungs likely represent atelectasis. Moderate bilateral pleural effusions are slightly increased from prior exam. IMPRESSION: 1. There are moderate bilateral pleural effusions, somewhat increased from the prior exam. 2. Airspace opacities compatible with atelectasis, superimposed pneumonia/aspiration cannot be entirely excluded. 3. Stable cardiac megaly. ACT 112: Negative or not required by law. Electronically signed by: Chandler Viera M.D. 09/19/2022 11:04 AM Ankle X-Ray 09/22/22 09:30 XR ankle RT min 3V routine CLINICAL HISTORY: R ankle pain/erythema TECHNIQUE: 3 views of the right ankle were obtained. Comparison: None available at the time of this dictation. FINDINGS: Partial visualization of proximal tibial hardware. No acute fractures are present. Degenerative changes are seen. Soft tissue swelling is seen about the ankle. Vascular calcifications are seen. IMPRESSION: Soft tissue swelling throughout the leg without evidence of acute fracture. ACT 112: Negative or not required by law. Electronically signed by: Chandler Viera M.D. 09/22/2022 10:06 AM Ordered Studies 09/13/22 03:10 US effusion-chest/mediastinum Routine Hospital Course (1) Acute on chronic combined systolic and diastolic heart failure: Patient is an 82 yr female with H/O chronic systolic and diastolic dysfunction, CAD w/ class 3-4 angina, PAF, tachy-tanner syndrome s/p PPM placement, aortic stenosis s/p TAVR, chronic AC, mitral stenosis, pulmonary HTN, DM2 with neuropathy, carotid stenosis s/o bilateral carotid endarterectomies, PVD, HTN, hypothyroidism, hyperlipidemia, GERD, chronic laryngospasm, RLS, glaucoma, and depression who presented today with progressive weakness and worsening respiratory status. Found to by hypoxic on presentation with a pulseox in the 70s, has responded to supplemental O2. Acute on chronic systolic and diastolic heart failure Acute on chronic respiratory failure with hypoxia Chronic oxygen dependency: On 2 L at bedtime at baseline Pulmonary edema secondary to above Severe arctic valve stenosis S/P TAVR in 2019 Chronic mitral stenosis Pulmonary hypertension Metabolic alkalosis --CXR: There are moderate bilateral pleural effusions, somewhat increased from the prior exam. Airspace opacities compatible with atelectasis, superimposed pneumonia/aspiration cannot be entirely excluded. Stable cardiomegaly. --ECHO: Normal LV chamber size with mild concentric LVH, EF 35 to 40%. Large sized septal, apical, lateral and inferior wall motion abnormality. Grade 2 diastolic dysfunction. Bioprosthetic aortic valve. Gradient is normal for the prosthetic aortic valve. Mild intra-abdominal aortic regurgitation. Severe mitral annular calcification. Mild mitral regurgitation. Moderate mitral stenosis. Moderate tricuspid regurgitation. Pulmonary artery hypertension present with PASP of 50 mmHg. Moderate size left pleural effusion. --Chest US:Limited exam secondary to lack of patient cooperation. Bilateral pleural effusions are redemonstrated. The right pleural effusion demonstrates a volume of approximately 174 mL. The left pleural effusion demonstrates a volume of approximately 279 mL. -- Offered thoracentesis: Patient refused --Monitor I's and O's, daily weight, volume status Continue torsemide as per cardiology/nephrology. Appreciate cardiology/nephrology input Wean off of supplemental oxygen during daytime as able Needs follow-up with cardiology upon discharge 2 step : Continue 2L at rest and with activity Refused rehab placement Plan to discharge home with HH Angina pectoris Inoperable coronary artery disease Intolerance to Ranexa Continue Plavix, Lipitor, isosorbide, metoprolol, nitroglycerin Added digoxin UTI Urine culture: E.coli, pansensitive IV Ceftriaxone>> changed to Ceftin Ankle pain / poss. gout flare -Completed prednisone course Elevated uric acid levels Continue allopurinol (2) Hypoxia: secondary to above May need 2 step prior to discharge (3) MARY (acute kidney injury): MARY Likely Ischemic ATN Cr 1.5 today Monitor renal function Avoid nephrotoxic agents as able Appreciate Nephrology Input (4) Acute hyperkalemia: Resolved Potassium supplement discontinued Received Lokelma (5) Chronic anticoagulation: INR 1.6 today Continue Coumadin to 7.5 mg today monitor INR (6) Angina pectoris: as above (7) ASCVD (arteriosclerotic cardiovascular disease): (8) Diabetes mellitus, type 2: Holding outpatient regimen. A1c 07/13/22 was 8.3% - Sliding scale insulin - Diabetic diet, BSG ACHS (9) Diabetic neuropathy: Continue gabapentin (10) GERD (gastroesophageal reflux disease): Continue PPI therapy (11) Hyperlipidemia: Continue statin (12) Hypertension: (13) Glaucoma: Plan Code Status: Full Code DVT Px: Warfarin Disposition Refused Rehab Plan to discharge home with HH Total Time Total Time Spent Total Time Spent (In Minutes): 50 minutes Discharge Plan Discharge Items Patient Disposition: Home - Home Health Services Reason For Visit: HYPOXIA, DECOMPENSATED HF Discharge Diagnosis: Acute on chronic systolic and diastolic heart failure Acute on chronic respiratory failure with hypoxia Angina pectoris Urinary tract infection Acute kidney injury Activity: Per Instructions section Exercise/Sports: Wait until after follow-up appointment Non-emergency contact: Primary Care Provider, Specialist, Director For [employer] and Senior Sustainability Advisor Call non-emergency contact if: you have any medication questions, your symptoms worsen, your pain is concerning for you and you have a fever Follow-up/Referrals: Natalio Moseley MD [Primary Care Provider] - (Date & Time 09/29/2022 11:00 AM Provider Cecilia Echevarria MD Department General Internal Medicine [facility] ) Thaddeus Cole [Physician Kier Operator] - (Date & Time 09/28/2022 3:30 PM Provider Thaddeus Cole PA-C Department Cardiology, [facility] ) Diet: Heart Healthy and Low Sodium (2gm) Fluids: 2000ml (8 cups) Addtl Attending Provider Instructions: Follow-up with your primary care physician on 09/29/2022 11:00 AM Follow-up with your anode crew supervisor Thaddeus Cole PA-C on 09/28/2022 3:30 PM Follow-up with your java manager in 2-3 weeks --- Follow-up with Coumadin clinic in 1 to 2 days for managing your Coumadin dose and monitoring your PT/INR Seek immediate medical attention if your symptoms reoccur or worsen Please take all medications as instructed on discharge list below. Please call if you have any questions or problems. You can reach a [facility] hospitalist on duty at [facility] 24 hours a day by calling [phone] Call your Primary Care doctor if any of the following symptoms or problems start or get worse: * Shortness of breath or difficulty breathing * Wake up at night short of breath * Chest pain * Cough * Swelling of your hands, feet, or legs * More fatigued or tired with your normal activity * Palpitations - sudden fast heart beats WEIGHT * Weigh yourself every morning after using the bathroom. * Use the same scale. * Wear the same amount of clothing. * Write your weight down on a chart. * Call your Primary Care doctor if you gain more than 2-3 pounds in 1-2 days. MEDICATIONS * Use this discharge instruction sheet for medication instructions. * Take your medications at the time your doctor ordered. * Do not skip a dose of your medicines. * If you miss a dose of medicine, take it as soon as possible, but DO NOT DOUBLE A DOSE. * Read your medicine information when you get home. * Know all of the side effects of your medicine. If in doubt, ask your pharmacist * Call your Primary Care doctor's office if you have any side effects. * Be sure all of your doctors know what medicine and herbs you take (including cold, flu, and herbal medicine). Take the following with you to your follow-up doctor appointments: * Weight Chart * Medication List * List of questions Do not drink excessive alcohol, beer or wine. Pending Studies at Discharge: No Stand-Alone Forms: My [facility] [employer], Smoking Cessation Medications and DC Order Prescriptions: New nitroglycerin [Nitro-Dur] 0.4 mg/hr Patch 24 Hour 1 patch transdermal QAM Qty: 30 1RF digoxin [Digitek] 125 mcg (0.125 mg) Tablet 0.125 mg PO MoWeFr 30 Days Qty: 13 1RF allopurinol 100 mg Tablet 100 mg PO QAM Qty: 30 1RF torsemide 10 mg tablet 10 mg PO UD Qty: 30 2RF Rx Instructions: Take Torsemide 30mg 9AM and and 20mg 5PM Continued atorvastatin 80 mg Tablet 80 mg PO QAM clopidogrel 75 mg Tablet 75 mg PO QAM levothyroxine 25 mcg Tablet 25 mcg PO DAILYBB ropinirole 0.25 mg Tablet 0.25 mg PO HS Rx Instructions: TAKE AT HS WITH FOOD. nitroglycerin 0.4 mg Tablet, Sublingual 0.4 mg sublingual DIRECTED PRN (Reason: Chest Pain) Rx Instructions: dissolve 1 tablet under tongue every 5 minutes as needed for chest pain as directed fluticasone propionate [Flonase Allergy Relief] 50 mcg/actuation Cosmos,Suspension 2 spray INTRANASAL DAILY Rx Instructions: takes up to TID PRN omeprazole 20 mg Tablet,Delayed Release (Dr/Ec) 20 mg PO DAILY metformin 500 mg Tablet 500 mg PO BIDM Rhopressa 0.02 % Drops 1 drp OPB HS isosorbide mononitrate 60 mg Tablet Extended Release 24 Hr 120 mg PO QAM warfarin 5 mg tablet 5 mg PO DAILY@1600 Rx Instructions: as recommended by coagulation clinic pharmacist glipizide 5 mg tablet 10 mg PO DAILYBB Rx Instructions: takes 10mg daily usually but while on prednisone takes 10mg bid Repatha SureClick 140 mg/mL pen injector 140 mg SUBCUT .Q14 DAYS diphenhydramine-acetaminophen [Tylenol PM Extra Strength] 25-500 mg Tablet 2 tab PO HS Cranberry Caps 360 mg PO DAILY Rx Instructions: take two 180 mg caps Vitron-C 65 mg iron- 125 mg Tablet,Delayed Release (Dr/Ec) 1 tab PO QAM metoprolol succinate 100 mg tablet extended release 24 hr 100 mg PO HS metoprolol succinate 100 mg tablet extended release 24 hr 150 mg PO QAM gabapentin 300 mg capsule 600 mg PO HS magnesium 200 mg tablet 200 mg PO AMHS Multiple Vitamin-Minerals Tablet 1 tab PO DAILY latanoprost 0.005 % drops 1 drp OPB HS Changed torsemide 20 mg tablet 20 mg PO UD Qty: 60 1RF Rx Instructions: Take Torsemide 30mg 9AM and and 20mg 5PM Discontinued nitroglycerin 0.2 mg/hr patch 24 hour 1 patch topical QAM Rx Instructions: remove at bedtime Discharge Orders: Discharge Order- CHF (Routine); Ordered 09/23/22 Ordered By: Chapin Levi Admission Data Admit Date/Time: 09/12/22 15:48 Attending Provider: Chapin Levi Admit Provider: Nick Werner Primary Care Provider: Natalio Moseley Other Providers: Nick Werner ; [facility] ; Abhi Rose
== END 2022-09-23 14:13 | disposition home health service (06) | DRG 291 ==
LOC: ED 13:40 → SUATTDRO 15:48 → EDINP 15:48 → 2E 09-13 02:52

== ENCOUNTER 2022-09-29 10:40 | Inpatient (IN) ==
--- NOTE | 2022-09-29 11:07 | Emergency Department Note ---
History of Present Illness General Chief complaint: Weakness Time Seen by Provider: 09/29/22 10:49 Source: patient, RN notes reviewed and old records reviewed Mode of arrival: EMS Limitations: no limitations History of Present Illness This patient 82-year-old female who had several recent admissions for CHF, comes in after feeling weak. She was recently admitted and discharged last Monday. They wanted her to go to [facility] but she says she was homesick and wanted to go home she says she has been doing terribly since she got home she feels weak all over she fell twice a couple days ago because her knees gave out no injury no syncope. She does feel short of breath at times she wears chronic 2 L nasal cannula when EMS arrived she was 70% on room air however with 2 L she is 98% here she does have chest pain intermittently chronically she takes nitro occasionally. No blood or melena stool no dysuria hematuria. She lives with her who also has health issues. She says her daughter has been trying to get her into rehab since she left the hospital. I did adjust her diuretics when she was in Home Medications Medication Instructions Recorded Confirmed Type atorvastatin 80 mg tablet 80 mg PO QAM 06/12/19 09/29/22 History clopidogrel 75 mg tablet 75 mg PO QAM 06/12/19 09/29/22 History fluticasone propionate 50 2 spray intranasal DAILY 06/12/19 09/29/22 History mcg/actuation nasal spray,suspension (Flonase Allergy Relief) levothyroxine 25 mcg tablet 25 mcg PO DAILYBB 06/12/19 09/29/22 History nitroglycerin 0.4 mg sublingual 0.4 mg sublingual DIRECTED PRN 06/12/19 09/29/22 History tablet Chest Pain omeprazole 20 mg tablet,delayed 20 mg PO DAILY 06/12/19 09/29/22 History release ropinirole 0.25 mg tablet 0.25 mg PO HS 06/12/19 09/29/22 History metformin 500 mg tablet 500 mg PO BIDM 07/13/20 09/29/22 History netarsudil 0.02 % eye drops 1 drp OPB HS 11/11/20 09/29/22 History (Rhopressa) evolocumab 140 mg/mL subcutaneous 140 mg subcut .Q14 DAYS 02/27/21 09/29/22 History pen injector (Repatha Denys) glipizide 5 mg tablet 10 mg PO DAILYBB 02/27/21 09/29/22 History isosorbide mononitrate 60 mg 120 mg PO QAM 02/27/21 09/29/22 History tablet,extended release 24 hr warfarin 5 mg tablet 5 mg PO DAILY@1600 02/27/21 09/29/22 History diphenhydramine 25 2 tab PO HS 08/29/21 09/29/22 History mg-acetaminophen 500 mg tablet (Tylenol PM Extra Strength) iron,carbonyl 65 mg-vitamin C 125 1 tab PO QAM 07/12/22 09/29/22 History mg tablet,delayed release (Vitron-C) gabapentin 300 mg capsule 600 mg PO HS 08/03/22 09/29/22 History metoprolol succinate 100 mg 100 mg PO HS 08/03/22 09/29/22 History tablet,extended release 24 hr metoprolol succinate 100 mg 150 mg PO QAM 08/03/22 09/29/22 History tablet,extended release 24 hr latanoprost 0.005 % eye drops 1 drp OPB HS 09/12/22 09/29/22 History magnesium 200 mg tablet 200 mg PO AMHS 09/12/22 09/29/22 History multivitamin with minerals 1 tab PO DAILY 09/12/22 09/29/22 History (Multiple Vitamin-Minerals tablet) allopurinol 100 mg tablet 100 mg PO QAM #30 tabs 09/23/22 09/29/22 Rx digoxin 125 mcg (0.125 mg) tablet 0.125 mg PO MoWeFr 30 days #13 tabs 09/23/22 09/29/22 Rx (Digitek) nitroglycerin 0.4 mg/hr 1 patch transdermal QAM #30 ea 09/23/22 09/29/22 Rx transdermal 24 hour patch (Nitro-Dur) torsemide 10 mg tablet 10 mg PO UD #30 tabs 09/23/22 09/29/22 Rx torsemide 20 mg tablet 20 mg PO UD #60 tabs 09/23/22 09/29/22 Rx cranberry 500 mg capsule 500 mg PO UD 09/29/22 09/29/22 History Allergies Allergy/AdvReac Type Severity Reaction Status Date / Time empagliflozin Allergy Intermediate BLOOD IN Verified 08/03/22 21:31 [From Jardiance] URINE, BLADDER INFECTION carbamazepine Allergy Mild RASH Verified 08/03/22 21:31 oxaprozin Allergy Mild RASH/HIVES Verified 08/03/22 21:31 valproic acid Allergy Mild HEAD-TOE Verified 08/03/22 21:31 RASH ranolazine [From Ranexa] AdvReac Dizziness Verified 08/04/22 03:12 Past Med/Surg History Medical History (Updated 09/29/22 @ 15:59 by KEVEN Garcia) Acute on chronic heart failure with reduced ejection fraction and diastolic dysfunction Afib CAD (coronary artery disease) Cardiac murmur no longer since heart valve surgery 02/2019 Carotid stenosis Cellulitis Cellulitis of foot Chronic anticoagulation Chronic back pain 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 Decompensated heart failure Decompensated heart failure Diabetes mellitus, type 2 GERD (gastroesophageal reflux disease) Glaucoma History of transcatheter aortic valve replacement (TAVR) Hyperlipidemia Hypertension Hypothyroidism Hypoxia, sleep related uses oxygen at hs 2.5 Laryngeal spasm Mitral stenosis On anticoagulant therapy on warfarin On home oxygen therapy 2.5 LITER AT HS Osteoarthritis Peripheral neuropathy Restless leg syndrome Tachy-tanner syndrome Weakness Surgical History History of abdominal surgery for bowel obstruction History of aortic valve replacement 02/26/19 @ [facility] – [place]--follows with Dr. Arredondo History of appendectomy History of cardiac cath x4 with a total of 4 stents--last--12/2018 @ [facility] [place] x1 DRUG ELUTING STENT History of colonoscopy History of esophagogastroduodenoscopy (EGD) History of heart artery stent a total of 4 stents--last--12/2018 @ [facility] [place] x1 DRUG ELUTING STENT History of hip surgery left 2 screws placed after total hip replacement History of lumbar laminectomy for spinal cord decompression x2 History of right cataract surgery History of tonsillectomy History of tooth extraction all teeth removed History of total hysterectomy with bilateral salpingo-oophorectomy (BSO) History of total left hip replacement History of total left knee replacement (TKR) History of total right knee replacement (TKR) S/P placement of cardiac pacemaker Aug 2021 S/P TAVR (transcatheter aortic valve replacement) Status post glaucoma surgery right eye Status post trigger finger release left hand Family History Mother Diabetes Osteoporosis Heart disease Grandmother (Maternal) Diabetes Father Heart disease Other Asthma No family history of adverse response to anesthesia Social History Smoking Status: Never smoker Tobacco Type: Cigarettes Second Hand Exposure: No; Hx Alcohol Use: No Hx Substance Use: No Preferred Language: Yi Communication Ability: Effective 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 Required: No Beliefs That Will Affect Care: None marital status: Current Living Situation: Spouse Current Living Situation Comment: Lives with Feels Safe at Home: Yes Assistive Devices: Cane, Oxygen - Continuous and Walker Review of Systems A total of 10 systems reviewed and were otherwise negative Physical Exam Vital Signs Vital Signs - 24 hr 09/29/22 10:53 09/29/22 11:44 09/29/22 13:30 Temperature 36.6 C Temperature Source Oral Pulse Rate 83 Pulse Rate [Apical] 82 71 Respiratory Rate 20 18 18 Respiratory Effort / Characteristics Non-Labored Spontaneous Non-Labored Spontaneous Non-Labored Spontaneous Respiratory Depth Normal Normal Normal Blood Pressure 121/73 Blood Pressure [Right Arm] 132/60 129/85 Blood Pressure Mean 89 Blood Pressure Mean [Right Arm] 84 99 Pulse Oximetry 100 100 99 Oxygen Delivery Method Room Air Nasal Cannula Nasal Cannula Oxygen Flow Rate 2 2 Sepsis Recent Fever Within 48 Hours No Sepsis New/Unexplained Change in Mental Status No Sepsis Action Taken by Nursing No Action Required 09/29/22 14:31 09/29/22 15:18 09/29/22 15:18 Temperature Temperature Source Pulse Rate Pulse Rate [Apical] 73 72 72 Respiratory Rate 20 18 16 Respiratory Effort / Characteristics Non-Labored Respiratory Depth Normal Blood Pressure Blood Pressure [Right Arm] 153/74 H 136/73 136/73 Blood Pressure Mean Blood Pressure Mean [Right Arm] 100 94 94 Pulse Oximetry 98 99 98 Oxygen Delivery Method Nasal Cannula Nasal Cannula Nasal Cannula Oxygen Flow Rate 2 2 2 Sepsis Recent Fever Within 48 Hours Sepsis New/Unexplained Change in Mental Status Sepsis Action Taken by Nursing General: Well developed well nourished chronically ill-appearing older female who is on baseline 2 L nasal cannula in no acute distress, breathing comfortably on room air. Normal speech HEENT: Normal cephalic atraumatic. Pupils are equal round and reactive to light. Extraocular movements are intact. Oropharynx is pink with moist mucous membranes. No swelling of the mouth lips or tongue. Neck: Supple with a midline trachea. No meningeal signs or stiffness, no JVD or bruits. No Stridor. Chest: She does have some rhonchi in the bases bilaterally and mildincreased work of breathing. Heart: Regular rate and rhythm without murmurs or gallops. Abdomen: Soft nontender, nondistended without rebound guarding or rigidity. Extremities: No cyanosis clubbing. She does have trace bilateral lower extremity edema. No calf tenderness or assymetry. She does have a blister on her plantar aspect of the right foot. Spine/Back. Non tender to palpation. No CVA tenderness Skin: Good turgor without rashes. Neurologic exam: Cranial nerves two through 12 are intact. Motor and sensation are intact and symmetrical throughout. Course Administered Medications Sodium Chloride (Nss) 500 mls @ 125 mls/hr IV .Q4H PRIMO Stop: 10/29/22 12:44 Last Infusion: 09/29/22 14:10 Dose: 0 mls/hr Documented By: Infusion: 09/29/22 14:09 Dose: 0 mls/hr Documented By: Admin: 09/29/22 12:58 Dose: 125 mls/hr Documented By: DAYNE Sodium Bicarbonate 150 meq/ (Dextrose) 1,150 mls @ 290 mls/hr IV .[id number] STA Stop: 09/29/22 16:52 Last Infusion: 09/29/22 14:34 Dose: 0 mls/hr Documented By: Admin: 09/29/22 13:24 Dose: 290 mls/hr Documented By: DAYNE Discontinued Medications Dextrose (Dextrose 50% 50 Ml Syringe) 50 ml IV NOW STA Stop: 09/29/22 12:56 Last Admin: 09/29/22 13:24 Dose: 50 ml Documented By: DAYNE Furosemide (Furosemide Inj 20 Mg/2 Ml Vial) 20 mg IV ONE ONE Stop: 09/29/22 14:22 Last Admin: 09/29/22 14:38 Dose: 20 mg Documented By: DAYNE Calcium Gluconate 1,000 mg/ (Dextrose) 60 mls @ 240 mls/hr IV ONCE STA Stop: 09/29/22 13:09 Last Infusion: 09/29/22 14:10 Dose: 0 mls/hr Documented By: Admin: 09/29/22 13:25 Dose: 240 mls/hr Documented By: DAYNE Insulin Human Regular 10 units (/ Syringe) 9.9 mls @ 3 mls/sec IV ONE STA Stop: 09/29/22 12:56 Last Admin: 09/29/22 13:24 Dose: 3 mls/sec Documented By: DAYNE Co-signed By: ILIANA Miscellaneous (Stat Iv) 1 each N/A NOW STA Stop: 09/29/22 12:56 Last Admin: 09/29/22 14:08 Dose: Not Given Documented By: DAYNE Critical Care Time Critical Care Time: Yes Total Critical Care Time: 35 Due to the patient's heart failure, renal failure hyperkalemia kalemia and need for multiple IV medications frequent reassessment, consultation, discussion with the patient and the family review of records and frequent reassessment, I have personally spent greater than 35 minutes of critical care time in the direct management of this patient. This includes bedside care, interpretation of diagnostic studies, and testing, discussion with consultants, patient, and family members, and other required patient management activities. This 35 minutes is in excess of all separately billable procedures. Medical Decision Making Differential Diagnosis CHF, electrolyte or metabolic abnormality, cardiac disease, infection, COVID Medical Records Attestation: I reviewed the patient's medical records. Home Medications Current Medication List: was personally reviewed by me Laboratory Data Attestation: I reviewed the patient's lab results. 09/29/22 11:15 09/29/22 11:15 Lab Results 09/29/22 09/29/22 09/29/22 Range/Units 11:15 11:15 11:15 WBC 8.89 (4.8-10.8) K/ul RBC 3.61 L (4.20-5.40) M/uL Hgb 10.7 L (12.0-16.0) g/dl Hct 34.6 L (37.0-47.0) % MCV 95.8 (80.0-100.0) fL MCH 29.6 (25.0-34.0) pg MCHC 30.9 L (32.0-36.0) g/dL RDW Std Deviation 51.8 H (36.4-46.3) fL RDW Coeff of Omid 15.0 H (11.5-14.5) % Plt Count 269 (130-400) K/uL MPV 10.8 (9.4-12.4) fL Immature Gran % (Auto) 0.7 % Neut % (Auto) 76.3 % Lymph % (Auto) 13.9 % [place] % (Auto) 8.2 % Eos % (Auto) 0.2 % Baso % (Auto) 0.7 % Neut # (Auto) 6.78 H (1.40-6.50) K/uL Lymph # (Auto) 1.24 (1.2-3.4) K/uL [place] # (Auto) 0.73 H (0.11-0.59) K/uL Eos # (Auto) 0.02 (0-0.50) K/uL Baso # (Auto) 0.06 (0-0.2) K/uL Immature Gran # (Auto) 0.06 (0.01-0.20) K/uL Absolute Nucleated RBC 0.02 (0-0.12) K/uL Nucleated RBC % (auto) 0.2 % PT 42.3 H (9.0-12.0) Seconds INR 4.3 H (0.9-1.1) APTT 35.1 H (21.0-31.0) Seconds PTT Ratio 1.3 ABG pH (7.35-7.45) ABG pCO2 (35-46) mmHg ABG pO2 (80-95) mmHg ABG HCO3 (19-24) mmol/L ABG O2 Saturation (90-95) % ABG Base Excess (-9-1.8) mEq/L Manolo Test (Pos) Oxygen Given Sodium (136-145) mmol/L Potassium (3.5-5.1) mmol/L Chloride (98-107) mmol/L Carbon Dioxide (21-32) mmol/L Anion Gap (3-11) BUN (6-23) mg/dl Creatinine (0.6-1.2) mg/dl Est Cr Clr Drug Dosing ml/min Est GFR ( Amer) ml/min Est GFR (Non-Af Amer) ml/min BUN/Creatinine Ratio (10-20) Glucose (70-99(Fasting)) mg/dl POC Glucose (70-99) mg/dl Lactate (0.4-2.0) mmol/L Calcium (8.5-10.1) mg/dl Phosphorus (2.5-4.9) mg/dl Total Bilirubin (0.2-1.0) mg/dl AST (13-39) U/L ALT (7-52) U/L Alkaline Phosphatase (34-104) U/L Troponin I High Sens (0-14) pg/ml B-Natriuretic Peptide 4647 H (0-100) pg/ml Total Protein (6.0-8.3) gm/dl Albumin (3.4-5.0) gm/dl Globulin (2.5-4.0) gm/dl Albumin/Globulin Ratio (0.9-2) Lipase (11-82) U/L Urine Color Urine Appearance (Clear) Urine pH (4.5-7.5) Ur Specific [place] (1.000-1.030) Urine Protein (Negative) Urine Glucose (UA) (Negative) Urine Ketones (Negative) Urine Blood (Negative) Urine Nitrite (Negative) Urine Bilirubin (Negative) Urine Urobilinogen (Negative) Ur Leukocyte Esterase (Negative) Urine WBC (Auto) (0-5) /hpf Urine RBC (Auto) (0-4) /hpf U Hyaline Cast (Auto) (0-5) /lpf U Epithel Cells (Auto) (0-5) /lpf Urine Bacteria (Auto) (Negative) Urine Yeast SARS-CoV-2 (PCR) (Negative) Influenza Type A (PCR) (Neg) Influenza Type B (PCR) (Neg) RSV (RT-PCR) (Neg) 09/29/22 09/29/22 09/29/22 Range/Units 11:15 11:15 11:23 WBC (4.8-10.8) K/ul RBC (4.20-5.40) M/uL Hgb (12.0-16.0) g/dl Hct (37.0-47.0) % MCV (80.0-100.0) fL MCH (25.0-34.0) pg MCHC (32.0-36.0) g/dL RDW Std Deviation (36.4-46.3) fL RDW Coeff of Omid (11.5-14.5) % Plt Count (130-400) K/uL MPV (9.4-12.4) fL Immature Gran % (Auto) % Neut % (Auto) % Lymph % (Auto) % [place] % (Auto) % Eos % (Auto) % Baso % (Auto) % Neut # (Auto) (1.40-6.50) K/uL Lymph # (Auto) (1.2-3.4) K/uL [place] # (Auto) (0.11-0.59) K/uL Eos # (Auto) (0-0.50) K/uL Baso # (Auto) (0-0.2) K/uL Immature Gran # (Auto) (0.01-0.20) K/uL Absolute Nucleated RBC (0-0.12) K/uL Nucleated RBC % (auto) % PT (9.0-12.0) Seconds INR (0.9-1.1) APTT (21.0-31.0) Seconds PTT Ratio ABG pH (7.35-7.45) ABG pCO2 (35-46) mmHg ABG pO2 (80-95) mmHg ABG HCO3 (19-24) mmol/L ABG O2 Saturation (90-95) % ABG Base Excess (-9-1.8) mEq/L Manolo Test (Pos) Oxygen Given Sodium 133 L (136-145) mmol/L Potassium 6.1 H* (3.5-5.1) mmol/L Chloride 88 L (98-107) mmol/L Carbon Dioxide 33 H (21-32) mmol/L Anion Gap 12 H (3-11) BUN 86 H (6-23) mg/dl Creatinine 3.93 H (0.6-1.2) mg/dl Est Cr Clr Drug Dosing 10.9 ml/min Est GFR ( Amer) 11.6 ml/min Est GFR (Non-Af Amer) 10.0 ml/min BUN/Creatinine Ratio 21.9 H (10-20) Glucose 335 H* (70-99(Fasting)) mg/dl POC Glucose (70-99) mg/dl Lactate (0.4-2.0) mmol/L Calcium 9.7 (8.5-10.1) mg/dl Phosphorus 5.8 H Cancelled (2.5-4.9) mg/dl Total Bilirubin 0.6 (0.2-1.0) mg/dl AST 32 (13-39) U/L ALT 28 (7-52) U/L Alkaline Phosphatase 83 (34-104) U/L Troponin I High Sens 395.6 H* (0-14) pg/ml B-Natriuretic Peptide (0-100) pg/ml Total Protein 6.7 (6.0-8.3) gm/dl Albumin 3.9 (3.4-5.0) gm/dl Globulin 2.8 (2.5-4.0) gm/dl Albumin/Globulin Ratio 1.4 (0.9-2) Lipase 29 (11-82) U/L Urine Color Urine Appearance (Clear) Urine pH (4.5-7.5) Ur Specific [place] (1.000-1.030) Urine Protein (Negative) Urine Glucose (UA) (Negative) Urine Ketones (Negative) Urine Blood (Negative) Urine Nitrite (Negative) Urine Bilirubin (Negative) Urine Urobilinogen (Negative) Ur Leukocyte Esterase (Negative) Urine WBC (Auto) (0-5) /hpf Urine RBC (Auto) (0-4) /hpf U Hyaline Cast (Auto) (0-5) /lpf U Epithel Cells (Auto) (0-5) /lpf Urine Bacteria (Auto) (Negative) Urine Yeast SARS-CoV-2 (PCR) NEGATIVE (Negative) Influenza Type A (PCR) Negative (Neg) Influenza Type B (PCR) Negative (Neg) RSV (RT-PCR) Negative (Neg) 09/29/22 09/29/22 09/29/22 Range/Units 12:17 15:18 15:18 WBC (4.8-10.8) K/ul RBC (4.20-5.40) M/uL Hgb (12.0-16.0) g/dl Hct (37.0-47.0) % MCV (80.0-100.0) fL MCH (25.0-34.0) pg MCHC (32.0-36.0) g/dL RDW Std Deviation (36.4-46.3) fL RDW Coeff of Omid (11.5-14.5) % Plt Count (130-400) K/uL MPV (9.4-12.4) fL Immature Gran % (Auto) % Neut % (Auto) % Lymph % (Auto) % [place] % (Auto) % Eos % (Auto) % Baso % (Auto) % Neut # (Auto) (1.40-6.50) K/uL Lymph # (Auto) (1.2-3.4) K/uL [place] # (Auto) (0.11-0.59) K/uL Eos # (Auto) (0-0.50) K/uL Baso # (Auto) (0-0.2) K/uL Immature Gran # (Auto) (0.01-0.20) K/uL Absolute Nucleated RBC (0-0.12) K/uL Nucleated RBC % (auto) % PT (9.0-12.0) Seconds INR (0.9-1.1) APTT (21.0-31.0) Seconds PTT Ratio ABG pH 7.39 (7.35-7.45) ABG pCO2 53 H (35-46) mmHg ABG pO2 96 H (80-95) mmHg ABG HCO3 32 H (19-24) mmol/L ABG O2 Saturation 98.7 H (90-95) % ABG Base Excess 5.7 H (-9-1.8) mEq/L Manolo Test Pos (Pos) Oxygen Given 2L Sodium (136-145) mmol/L Potassium (3.5-5.1) mmol/L Chloride (98-107) mmol/L Carbon Dioxide (21-32) mmol/L Anion Gap (3-11) BUN (6-23) mg/dl Creatinine (0.6-1.2) mg/dl Est Cr Clr Drug Dosing ml/min Est GFR ( Amer) ml/min Est GFR (Non-Af Amer) ml/min BUN/Creatinine Ratio (10-20) Glucose (70-99(Fasting)) mg/dl POC Glucose (70-99) mg/dl Lactate 3.3 H* (0.4-2.0) mmol/L Calcium (8.5-10.1) mg/dl Phosphorus (2.5-4.9) mg/dl Total Bilirubin (0.2-1.0) mg/dl AST (13-39) U/L ALT (7-52) U/L Alkaline Phosphatase (34-104) U/L Troponin I High Sens (0-14) pg/ml B-Natriuretic Peptide (0-100) pg/ml Total Protein (6.0-8.3) gm/dl Albumin (3.4-5.0) gm/dl Globulin (2.5-4.0) gm/dl Albumin/Globulin Ratio (0.9-2) Lipase (11-82) U/L Urine Color Dark Yellow Urine Appearance Turbid A (Clear) Urine pH 6.5 (4.5-7.5) Ur Specific [place] 1.024 (1.000-1.030) Urine Protein 4+ H (Negative) Urine Glucose (UA) Negative (Negative) Urine Ketones Trace H (Negative) Urine Blood Trace H (Negative) Urine Nitrite Negative (Negative) Urine Bilirubin Negative (Negative) Urine Urobilinogen Negative (Negative) Ur Leukocyte Esterase 1+ H (Negative) Urine WBC (Auto) >30 H (0-5) /hpf Urine RBC (Auto) 0-4 (0-4) /hpf U Hyaline Cast (Auto) 1-5 (0-5) /lpf U Epithel Cells (Auto) >30 H (0-5) /lpf Urine Bacteria (Auto) 2+ H (Negative) Urine Yeast Not Reportable SARS-CoV-2 (PCR) (Negative) Influenza Type A (PCR) (Neg) Influenza Type B (PCR) (Neg) RSV (RT-PCR) (Neg) 09/29/22 Range/Units 15:26 WBC (4.8-10.8) K/ul RBC (4.20-5.40) M/uL Hgb (12.0-16.0) g/dl Hct (37.0-47.0) % MCV (80.0-100.0) fL MCH (25.0-34.0) pg MCHC (32.0-36.0) g/dL RDW Std Deviation (36.4-46.3) fL RDW Coeff of Omid (11.5-14.5) % Plt Count (130-400) K/uL MPV (9.4-12.4) fL Immature Gran % (Auto) % Neut % (Auto) % Lymph % (Auto) % [place] % (Auto) % Eos % (Auto) % Baso % (Auto) % Neut # (Auto) (1.40-6.50) K/uL Lymph # (Auto) (1.2-3.4) K/uL [place] # (Auto) (0.11-0.59) K/uL Eos # (Auto) (0-0.50) K/uL Baso # (Auto) (0-0.2) K/uL Immature Gran # (Auto) (0.01-0.20) K/uL Absolute Nucleated RBC (0-0.12) K/uL Nucleated RBC % (auto) % PT (9.0-12.0) Seconds INR (0.9-1.1) APTT (21.0-31.0) Seconds PTT Ratio ABG pH (7.35-7.45) ABG pCO2 (35-46) mmHg ABG pO2 (80-95) mmHg ABG HCO3 (19-24) mmol/L ABG O2 Saturation (90-95) % ABG Base Excess (-9-1.8) mEq/L Manolo Test (Pos) Oxygen Given Sodium (136-145) mmol/L Potassium (3.5-5.1) mmol/L Chloride (98-107) mmol/L Carbon Dioxide (21-32) mmol/L Anion Gap (3-11) BUN (6-23) mg/dl Creatinine (0.6-1.2) mg/dl Est Cr Clr Drug Dosing ml/min Est GFR ( Amer) ml/min Est GFR (Non-Af Amer) ml/min BUN/Creatinine Ratio (10-20) Glucose (70-99(Fasting)) mg/dl POC Glucose 209 H (70-99) mg/dl Lactate (0.4-2.0) mmol/L Calcium (8.5-10.1) mg/dl Phosphorus (2.5-4.9) mg/dl Total Bilirubin (0.2-1.0) mg/dl AST (13-39) U/L ALT (7-52) U/L Alkaline Phosphatase (34-104) U/L Troponin I High Sens (0-14) pg/ml B-Natriuretic Peptide (0-100) pg/ml Total Protein (6.0-8.3) gm/dl Albumin (3.4-5.0) gm/dl Globulin (2.5-4.0) gm/dl Albumin/Globulin Ratio (0.9-2) Lipase (11-82) U/L Urine Color Urine Appearance (Clear) Urine pH (4.5-7.5) Ur Specific [place] (1.000-1.030) Urine Protein (Negative) Urine Glucose (UA) (Negative) Urine Ketones (Negative) Urine Blood (Negative) Urine Nitrite (Negative) Urine Bilirubin (Negative) Urine Urobilinogen (Negative) Ur Leukocyte Esterase (Negative) Urine WBC (Auto) (0-5) /hpf Urine RBC (Auto) (0-4) /hpf U Hyaline Cast (Auto) (0-5) /lpf U Epithel Cells (Auto) (0-5) /lpf Urine Bacteria (Auto) (Negative) Urine Yeast SARS-CoV-2 (PCR) (Negative) Influenza Type A (PCR) (Neg) Influenza Type B (PCR) (Neg) RSV (RT-PCR) (Neg) Imaging Data Attestation: I personally reviewed and interpreted this imaging study as fo llows: My Impression: Chest xray-cardiomegaly. There is some mild increased interstitial markings consistent with some mild congestive heart failure. There is some pleural effusions in the bases bilaterally Radiologist's Impression: Chest X-Ray 09/29/22 11:02 XR chest 1V portable HISTORY: Weakness. Chest pain, nonspecific COMPARISON: Chest 09/19/2022. FINDINGS: No pneumothorax. The cardiac silhouette remains enlarged. A cardiac valve prosthesis is again noted. The left-sided tube or pacemaker. There is mild interstitial pulmonary edema which has slightly progressed. Small to moderate bilateral pleural effusions and bibasilar densities are not significantly changed. IMPRESSION: 1. Mild interstitial pulmonary edema which has progressed in the interval. 2. Small to moderate bilateral pleural effusions and bibasilar densities persist. ACT 112: Negative or not required by law. Electronically signed by: Axel Patel M.D. 09/29/2022 11:36 AM ECG Data Attestation: I personally reviewed and interpreted this ECG as follows: Indication: + SOB/dyspnea and + weakness Rate (beats per minute): 75 Rhythm: + other (Ventricular paced rhythm) ECG Intervals/blocks: + Normal QT ECG [place]: + Normal ECG ST segments: + Normal ST segments ECG Findings: no PACs or no PVCs Comparison ECG Date: from (09/03/22) Change: no significant change MDM Narrative This patient comes in with weakness she has a history of CHF and has been in and out of the hospital. She had declined rehab recently but now she feels like she needs it as she is very weak at home. IV access established she was hypoxemic w hen the paramedics arrived. She on her oxygen now and is nonhypoxemic with 2 L nasal cannula. Her daughter arrived and I talked to the daughter at length as well. Her daughter says that since she left the hospital she is in more somnolent and has been jerking and shaking more. She also is not sure if she is taking all of her medications. She has been trying to get her into rehab. Patient's chest x-ray does suggest fluid overload however her renal function is much worse and it could be that she is intravascularly dry I started some very slow IV fluids at 125 an hour. Her potassium also came back high at 6.1 is hard to tell if she has EKG changes because she has a paced rhythm but given the renal failure, I did treat her with IV calcium gluconate, IV bicarb, IV insulin, IV dextrose as per our hyperkalemia protocol/order set. Her troponin is also significant elevated likely from heart failure. She has no chest pain. I do think she needs to be admitted for further treatment and observation and evaluation. I Talk to the daughter at length she has had for recent admissions and has a significantly bad heart and now her kidneys are not working. At this point the patient would like to be full code but she does not want any prolonged efforts. [facility] in the [facility] as well. Continuous cardiac monitoring: Orders placed in EMR for continuous cardiac monitoring. On pulm interpretation patient will be normal sinus rhythm rate of 70 Impression & Plan CHF (congestive heart failure), Acute hyperkalemia, Weakness, Lab test negative for COVID-19 virus, Acute renal failure Discharge Plan Visit Data Chief Complaint: Weakness ED Provider: Balaji Espino Discharge Problem: CHF (congestive heart failure), Acute hyperkalemia, Weakness, Lab test negative for COVID-19 virus, Acute renal failure Forms Stand Alone Forms: My [facility] [employer] Prescriptions Prescriptions: No Action atorvastatin 80 mg Tablet 80 mg PO QAM clopidogrel 75 mg Tablet 75 mg PO QAM levothyroxine 25 mcg Tablet 25 mcg PO DAILYBB ropinirole 0.25 mg Tablet 0.25 mg PO HS Rx Instructions: TAKE AT HS WITH FOOD. nitroglycerin 0.4 mg Tablet, Sublingual 0.4 mg sublingual DIRECTED PRN (Reason: Chest Pain) Rx Instructions: dissolve 1 tablet under tongue every 5 minutes as needed for chest pain as directed fluticasone propionate [Flonase Allergy Relief] 50 mcg/actuation [place],Suspension 2 spray INTRANASAL DAILY Rx Instructions: takes up to TID PRN omeprazole 20 mg Tablet,Delayed Release (Dr/Ec) 20 mg PO DAILY metformin 500 mg Tablet 500 mg PO BIDM Rhopressa 0.02 % Drops 1 drp OPB HS isosorbide mononitrate 60 mg Tablet Extended Release 24 Hr 120 mg PO QAM warfarin 5 mg tablet 5 mg PO DAILY@1600 Rx Instructions: as recommended by coagulation clinic pharmacist glipizide 5 mg tablet 10 mg PO DAILYBB Rx Instructions: takes 10mg daily usually but while on prednisone takes 10mg bid Repatha SureClick 140 mg/mL pen injector 140 mg SUBCUT .Q14 DAYS diphenhydramine-acetaminophen [Tylenol PM Extra Strength] 25-500 mg Tablet 2 tab PO HS Vitron-C 65 mg iron- 125 mg Tablet,Delayed Release (Dr/Ec) 1 tab PO QAM metoprolol succinate 100 mg tablet extended release 24 hr 100 mg PO HS metoprolol succinate 100 mg tablet extended release 24 hr 150 mg PO QAM gabapentin 300 mg capsule 600 mg PO HS magnesium 200 mg tablet 200 mg PO AMHS Multiple Vitamin-Minerals Tablet 1 tab PO DAILY latanoprost 0.005 % drops 1 drp OPB HS nitroglycerin [Nitro-Dur] 0.4 mg/hr Patch 24 Hour 1 patch transdermal QAM Qty: 30 1RF digoxin [Digitek] 125 mcg (0.125 mg) Tablet 0.125 mg PO MoWeFr 30 Days Qty: 13 1RF allopurinol 100 mg Tablet 100 mg PO QAM Qty: 30 1RF torsemide 10 mg tablet 10 mg PO UD Qty: 30 2RF Rx Instructions: Take Torsemide 30mg 9AM and and 20mg 5PM torsemide 20 mg tablet 20 mg PO UD Qty: 60 1RF Rx Instructions: Take Torsemide 30mg 9AM and and 20mg 5PM cranberry 500 mg Capsule 500 mg PO UD Rx Instructions: administer with meals Referrals Referrals: Doberstein,Natalio F., MD [Primary Care Provider] - : CHF (congestive heart failure) Qualifiers: Heart failure type: unspecified Heart failure chronicity: unspecified Qualified Code(s): I50.9 - Heart failure, unspecified Acute renal failure Qualifiers: Acute renal failure type: unspecified Qualified Code(s): N17.9 - Acute kidney failure, unspecified
--- NOTE | 2022-09-29 11:37 | XRay Report ---
XR chest 1V portable HISTORY: Weakness. Chest pain, nonspecific COMPARISON: Chest 09/19/2022. FINDINGS: No pneumothorax. The cardiac silhouette remains enlarged. A cardiac valve prosthesis is aga in noted. The left-sided tube or pacemaker. There is mild interstitial pulmonary edema which has slig htly progressed. Small to moderate bilateral pleural effusions and bibasilar densities are not signif icantly changed. IMPRESSION: 1. Mild interstitial pulmonary edema which has progressed in the interval. 2. Small to moderate bilateral pleural effusions and bibasilar densities persist. ACT 112: Negative or not required by law. Electronically signed by: Axel Ptael M.D. 09/29/2022 11:36 AM
[2022-09-29 11:46] LABS: Basophils # (auto) 0.06 K/uL (0-0.2); Basophils % (auto) 0.7 %; Eosinophils # (auto) 0.02 K/uL (0-0.50); Eosinophils % (auto) 0.2 %; Hematocrit (blood only) 34.6 % (37.0-47.0); Hemoglobin 10.7 g/dl (12.0-16.0); Immature Granulocytes # (auto) 0.06 K/uL (0.01-0.20); Immature Granulocytes % (auto) 0.7 %; Lymphocytes # (auto) 1.24 K/uL (1.2-3.4); Lymphocytes % (auto) 13.9 %; Mean Corpuscular Hemoglobin 29.6 pg (25.0-34.0); Mean Corpuscular Hgb Conc 30.9 g/dL (32.0-36.0); Mean Corpuscular Volume 95.8 fL (80.0-100.0); Mean Platelet Volume 10.8 fL (9.4-12.4); Monocytes # (auto) 0.73 K/uL (0.11-0.59); Monocytes % (auto) 8.2 %; Neutrophils # (auto) 6.78 K/uL (1.40-6.50); Neutrophils % (auto) 76.3 %; Nucleated RBC # (auto) 0.02 K/uL (0-0.12); Nucleated RBC % (auto) 0.2 %; Platelet Count 269 K/uL (130-400); RDW Standard Deviation 51.8 fL (36.4-46.3); Red Blood Count 3.61 M/uL (4.20-5.40); White Blood Count 8.89 K/ul (4.8-10.8)
[2022-09-29 11:47] LABS: INR 4.3 (0.9-1.1); Partial Thromboplastin Ratio 1.3; Partial Thromboplastin Time 35.1 Seconds (21.0-31.0); Prothrombin Time 42.3 Seconds (9.0-12.0)
[2022-09-29 12:14] LABS: Influenza A virus by PCR Negative (Neg); Influenza B virus by PCR Negative (Neg); RSV by PCR Negative (Neg); SARS CoV2 RNA(COVID-19) Ceph NEGATIVE (Negative)
[2022-09-29 12:28] LABS: Appearance Urine Turbid (Clear); Bacteria Urine Automated 2+ (Negative); Bilirubin Urine Negative (Negative); Blood Urine Trace (Negative); Color Urine Dark Yellow; Epithelial Cell Urine Auto >30 /lpf (0-5); Glucose Urine UA Negative (Negative); Ketones Urine Trace (Negative); Leukocyte Esterase Urine 1+ (Negative); Nitrite Urine Negative (Negative); Protein Urine 4+ (Negative); Specific Gravity Urine 1.024 (1.000-1.030); Urobilinogen Urine Negative (Negative); WBC Urine Automated >30 /hpf (0-5); pH Urine 6.5 (4.5-7.5)
[2022-09-29 12:34] LABS: Albumin Globulin Ratio 1.4 (0.9-2); Albumin Level 3.9 gm/dl (3.4-5.0); BUN Creatinine Ratio 21.9 (10-20); Bilirubin,Total 0.6 mg/dl (0.2-1.0); Calcium 9.7 mg/dl (8.5-10.1); Creatinine Clr Calc Pharmacy 10.9 ml/min; Est GFR (African American) 11.6 ml/min; Globulin 2.8 gm/dl (2.5-4.0); Potassium 6.1 mmol/L (3.5-5.1); Total Protein 6.7 gm/dl (6.0-8.3); Troponin I High Sensitivity 395.6 pg/ml (0-14)
[2022-09-29] MEDS ORDERED: SODIUM CHLORIDE 0.9% 500 ML IV SCH (12:45)
[2022-09-29 12:47] LABS: RBC Urine Automated 0-4 /hpf (0-4)
[2022-09-29] MEDS ORDERED: ACETAMINOPHEN 325 MG TAB PO PRN (12:53)
[2022-09-29] MEDS ORDERED: POLYETHYLENE (MIRALAX) 17 GM PACK PO PRN (12:53)
[2022-09-29] MEDS ORDERED: MAGNESIUM HYDROXIDE SUSP 30 ML UDC PO PRN (12:53)
[2022-09-29] MEDS ORDERED: ALUMINUM/MAGNESIUM SUSP 30 ML UDC PO PRN (12:53)
[2022-09-29] MEDS ORDERED: ONDANSETRON INJ 2 MG/ML 2 ML VIAL IV PRN (12:53)
[2022-09-29] MEDS ORDERED: STAT IV STA (12:55)
[2022-09-29] MEDS ORDERED: CALCIUM GLUCONATE 10% 1,000 MG in DEXTROSE 5% 50 ML IV STA (12:55)
[2022-09-29] MEDS ORDERED: INSULIN HUMAN REGULAR PER UNIT 10 UNITS in SYRINGE 9.9 ML IV STA (12:55)
[2022-09-29] MEDS ORDERED: SODIUM BICARBONATE 8.4% 150 MEQ in DEXTROSE 5% 1,000 ML IV STA (12:55)
[2022-09-29] MEDS ORDERED: DEXTROSE 50% 50 ML SYRINGE IV STA (12:55)
--- NOTE | 2022-09-29 13:03 | History & Physical Report ---
Date of Service September 29, 2022 Assessment & Plan (1) Decompensated heart failure: (2) Weakness: (3) MARY (acute kidney injury): (4) Acute hyperkalemia: (5) Diabetes mellitus, type 2: (6) Peripheral neuropathy: (7) CAD (coronary artery disease): (8) Troponin level elevated: (9) Hyperlipidemia: (10) Cellulitis of foot: Plan 82 y/o with decompensated heart failure and kidney failure. Two admissions over past two months for similar symptoms. K+ 6.1, worsening creatinine over past few months; now 3.93. Phos 5.8. Open to Palliative Medicine consultation. Will involve Cards and Neprho. Decompensated heart failure: Weakness Hypoxia: - Admit to PCU - Continue supplemental O2; obtain ABG; Bipap based on results - Ruiz insertion, Is and Os, daily weights - CBC and BMP in AM -BNP 4647 - Hold on repeat ECHO until Cards sees - Repeat CXR in AM - Repeat EKG in AM, trend troponin x1 -Lactate 3.3; will trend -PT/OT -Lasix 20 mg IV once in ED -Palliative Medicine consult; see Goals of Care conversation below -Cardiology consultation placed MARY: Acute hyperkalemia: -Suspect ischemic d/t chronic diuretics -Baseline creatinine in Apr 2022; 0.8; last admission at [facility] creatinine 1.5; now 3.93 -K+ 6.1; received Calcium and Insulin/Dextrose in ED; Will also give Lasix 20 mg IV once -Phos+ 5.8; suspect related to kidney failure -Consult Nephrology -Trend labs in AM -I/O -Lasix 20 mg IV once in ED -Family has stated they would not want hemodialysis Cellulitis: Right dorsal surface of foot: Fluid filled blister with erythematous borders Treat with PO Keflex Lactate and blood cultures pending; adjust abx as necessary Wound culture if necessary when blister opens. H/O TAVR: Chronic anticoagulation: -INR 4.3; hold Coumadin for now -No signs of acute bleeding -Recheck INR in AM Diabetes mellitus type 2: Peripheral neuropathy: -Holding all outpatient regimen. -A1c 07/13/22 was 8.3 -ACHS FSBS; SSI -Renal diet Goals of Care -Lengthy conversation held with patient and daughter. Numerous admissions over the past year. 08/03-08/06; 09/12-09/23. Due to the patients overall clinical picture, she would qualify for hospice services. Lengthy goals of care conversation was held with this patient and her daughter, Madiha, at bedside. Patient has noted to have significant decline over the past 6 months and patient is noted to have significant functional decline over the past 6 months; has been resistant to inpatient rehabilitation and has made numerous comments indicating her wish to be at home with her family. A few analogies described to patient including a swelling pipe. We talked about medication changes, recurrent hospitalizations and our ability to care for these chronic illness intermediate. Patient does state that she has strong lucille but does admit that she feels that her life and decisions have become out of her control as of late. We discussed Palliative Medicine at length and Hospice as well and the difference between the two. The family knows that her body is declining and if she did have limited time (6 months, 1 year, etc) that she would want the rest of that time being spent at home with symptom management. She did describe feeling 'burdensome' to her family. -For now, patient will remain a full code; but all are receptive to further goals of care conversations with palliative medicine with some treatment in the meantime for helping her to feel a little bit better. Discussed that the patient would qualify for Hospice services with the diagnosis of Congestive Heart Failure. 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 This conversation led to the unliklihood of her having a meaningful recovery in that situation. The patient will remain a full code for now, but the daughter said that if there is no improvement over the next 24-48 hours, they will consider DNR/DNI. CAD: Troponin level elevated: As expected with her CHF; BNP 4647 Troponin 395.6 -Anticipate ischemic demand Hyperlipidemia: -Continue Atorvastatin Disposition: PCP: Dr. Moseley CODE STATUS: Full code VTE prophylaxis: On anticoagulants; supratherapeutic A total of 88 minutes was spent with greater than 50% of that time personally reviewing all current laboratory work and diagnostic imaging studies obtained in the ED. Additionally, I was able to review the patients past medication reconciliation and history with direct visualization in the patients chart. Included in the time above, a portion of that time was spent assessing the patient while discussing and collaborating with specialists, if necessary, and making medical decisions regarding orders to be placed. All of the aforementioned completed while collaborating with Dr. Kothari for a full treatment plan. Please see her addendum for further details. History of Present Illness Chief Complaint: weakness Primary Care Provider: Natalio Moseley MD Ms. Montgomery is an 82 year old female that presented to the [facility] with SOB and progressive weakness. She has multiple recurrent hospitalizations 08/03 to 08/06; 09/12 to 09/23 for decompensated heart failure. She has a very complex cardiac history including CAD with class III-IV angina, paroxysmal A-fib, TAVR (2019 -on chronic anticoagulation ), pacer insertion in 06/2022 status post tachybradycardia syndrome, carotid stenosis status post bilateral carotid endarterectomies 2012, mitral stenosis, pulmonary hypertension, diabetes mellitus type 2 with peripheral neuropathy, carotid stenosis, PVD, hypertension, hypothyroidism, HLD, GERD, glaucoma and depression. It is suspect that this patient is experiencing acute decompensation of chronic HFrEF with hypoxia. Patient with previous MARY however baseline creatinine continues to worsen today 3.93. Appears to be ischemic ATN due to diuretic use for heart failure. Troponin noted to be elevated, likely due to demand ischemia from known CAD with class IV angina, worsened by hypoxia and current MARY. Due to the patients overall clinical picture, she would qualify for hospice services. Lengthy goals of care conversation was held with this patient and her daughter, Madiha, at bedside. Patient has noted to have significant decline over the past 6 months and patient is noted to have significant functional decline over the past 6 months; has been resistant to inpatient rehabilitation and has made numerous comments indicating her wish to be at home with her family. A few analogies described to patient including a swelling pipe. We talked about medication changes, recurrent hospitalizations and our ability to care for these chronic illness intermediate. Patient does state that she has strong lucille but does admit that she feels that her life and decisions have become out of her control as of late. We discussed Palliative Medicine at length and Hospice as well and the difference between the two. The family knows that her body is declining and if she did have limited time (6 months, 1 year, etc) that she would want the rest of that time being spent at home with symptom management. She did describe feeling 'burdensome' to her family. For now, patient will remain a full code; but all are receptive to further goals of care conversations with palliative medicine with some treatment in the meantime for helping her to feel a little bit better. Discussed that the patient would qualify for Hospice services with the diagnosis of Congestive Heart Failure. Regarding her code status; she was clear she does not want to be on a ventilatory intermediate but would like resuscitative efforts to be given from a CPR perspective if there is 'a chance'. This conversation led to the unliklihood of her having a meaningful recovery in that situation. The patient will remain a full code for now, but the daughter said that if there is no improvement over the next 24-48 hours, they will consider DNR/DNI. Patient is AAOx3 and able to hold a meaningful conversation; however, does get confused with medical details. Patient denies chest pain, palpitations, N/V/D, visual or auditory changes. She does report decreased urine output and less PO intake over the past few days. She has been drinking ensure the past few days. Her daughter reports she is unsure if she has been compliant with taking all of her medications. On exam, patient is ALTURAS, pale, using accessory muscle for breathing (which is new per daughter), crackles anteriorly, decreased posteriorly. she has a fluid- filled blister on her right dorsal foot with erythematous borders. Patient will be admitted for further evaluation and management with input from Nephrology, Cardiology and Palliative Medicine. Allergies Allergy/AdvReac Type Severity Reaction Status Date / Time empagliflozin Allergy Intermediate BLOOD IN Verified 08/03/22 21:31 [From Jardiance] URINE, BLADDER INFECTION carbamazepine Allergy Mild RASH Verified 08/03/22 21:31 oxaprozin Allergy Mild RASH/HIVES Verified 08/03/22 21:31 valproic acid Allergy Mild HEAD-TOE Verified 08/03/22 21:31 RASH ranolazine [From Ranexa] AdvReac Dizziness Verified 08/04/22 03:12 Home Medications Medication Instructions Recorded Confirmed Type atorvastatin 80 mg tablet 80 mg PO QAM 06/12/19 09/29/22 History clopidogrel 75 mg tablet 75 mg PO QAM 06/12/19 09/29/22 History fluticasone propionate 50 2 spray intranasal DAILY 06/12/19 09/29/22 History mcg/actuation nasal spray,suspension (Flonase Allergy Relief) levothyroxine 25 mcg tablet 25 mcg PO DAILYBB 06/12/19 09/29/22 History nitroglycerin 0.4 mg sublingual 0.4 mg sublingual DIRECTED PRN 06/12/19 09/29/22 History tablet Chest Pain omeprazole 20 mg tablet,delayed 20 mg PO DAILY 06/12/19 09/29/22 History release ropinirole 0.25 mg tablet 0.25 mg PO HS 06/12/19 09/29/22 History metformin 500 mg tablet 500 mg PO BIDM 07/13/20 09/29/22 History netarsudil 0.02 % eye drops 1 drp OPB HS 11/11/20 09/29/22 History (Rhopressa) evolocumab 140 mg/mL subcutaneous 140 mg subcut .Q14 DAYS 02/27/21 09/29/22 History pen injector (Brad Mcfarlane) glipizide 5 mg tablet 10 mg PO DAILYBB 02/27/21 09/29/22 History isosorbide mononitrate 60 mg 120 mg PO QAM 02/27/21 09/29/22 History tablet,extended release 24 hr warfarin 5 mg tablet 5 mg PO DAILY@1600 02/27/21 09/29/22 History diphenhydramine 25 2 tab PO HS 08/29/21 09/29/22 History mg-acetaminophen 500 mg tablet (Tylenol PM Extra Strength) iron,carbonyl 65 mg-vitamin C 125 1 tab PO QAM 07/12/22 09/29/22 History mg tablet,delayed release (Vitron-C) gabapentin 300 mg capsule 600 mg PO HS 08/03/22 09/29/22 History metoprolol succinate 100 mg 100 mg PO HS 08/03/22 09/29/22 History tablet,extended release 24 hr metoprolol succinate 100 mg 150 mg PO QAM 08/03/22 09/29/22 History tablet,extended release 24 hr latanoprost 0.005 % eye drops 1 drp OPB HS 09/12/22 09/29/22 History magnesium 200 mg tablet 200 mg PO AMHS 09/12/22 09/29/22 History multivitamin with minerals 1 tab PO DAILY 09/12/22 09/29/22 History (Multiple Vitamin-Minerals tablet) allopurinol 100 mg tablet 100 mg PO QAM #30 tabs 09/23/22 09/29/22 Rx digoxin 125 mcg (0.125 mg) tablet 0.125 mg PO MoWeFr 30 days #13 tabs 09/23/22 09/29/22 Rx (Digitek) nitroglycerin 0.4 mg/hr 1 patch transdermal QAM #30 ea 09/23/22 09/29/22 Rx transdermal 24 hour patch (Nitro-Dur) torsemide 10 mg tablet 10 mg PO UD #30 tabs 09/23/22 09/29/22 Rx torsemide 20 mg tablet 20 mg PO UD #60 tabs 09/23/22 09/29/22 Rx cranberry 500 mg capsule 500 mg PO UD 09/29/22 09/29/22 History Past Med/Surg History Medical History (Updated 09/29/22 @ 15:59 by KEVEN Garcia) Acute on chronic heart failure with reduced ejection fraction and diastolic dysfunction Afib CAD (coronary artery disease) Cardiac murmur no longer since heart valve surgery 02/2019 Carotid stenosis Cellulitis Cellulitis of foot Chronic anticoagulation Chronic back pain 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 Decompensated heart failure Decompensated heart failure Diabetes mellitus, type 2 GERD (gastroesophageal reflux disease) Glaucoma History of transcatheter aortic valve replacement (TAVR) Hyperlipidemia Hypertension Hypothyroidism Hypoxia, sleep related uses oxygen at hs 2.5 Laryngeal spasm Mitral stenosis On anticoagulant therapy on warfarin On home oxygen therapy 2.5 LITER AT HS Osteoarthritis Peripheral neuropathy Restless leg syndrome Tachy-tanner syndrome Weakness Surgical History History of abdominal surgery for bowel obstruction History of aortic valve replacement 02/26/19 @ [facility]--follows with Dr. Arredondo History of appendectomy History of cardiac cath x4 with a total of 4 stents--last--12/2018 @ [facility] x1 DRUG ELUTING STENT History of colonoscopy History of esophagogastroduodenoscopy (EGD) History of heart artery stent a total of 4 stents--last--12/2018 @ [facility] x1 DRUG ELUTING STENT History of hip surgery left 2 screws placed after total hip replacement History of lumbar laminectomy for spinal cord decompression x2 History of right cataract surgery History of tonsillectomy History of tooth extraction all teeth removed History of total hysterectomy with bilateral salpingo-oophorectomy (BSO) History of total left hip replacement History of total left knee replacement (TKR) History of total right knee replacement (TKR) S/P placement of cardiac pacemaker Aug 2021 S/P TAVR (transcatheter aortic valve replacement) Status post glaucoma surgery right eye Status post trigger finger release left hand Family History Mother Diabetes Osteoporosis Heart disease Grandmother (Maternal) Diabetes Father Heart disease Other Asthma No family history of adverse response to anesthesia Social History Smoking Status: Never smoker Tobacco Type: Cigarettes Second Hand Exposure: No; Hx Alcohol Use: No Hx Substance Use: No Preferred Language: Nepalese Communication Ability: Effective 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 Beliefs That Will Affect Care: None marital status: Current Living Situation: Spouse Current Living Situation Comment: Lives with Other Information That Helps Us Care for You: No Feels Safe at Home: Yes Safety Concerns: Feels Safe At This Time Assistive Devices: Cane, Denture - Upper, Denture - Lower, Glasses, Hearing Aid - Bilateral and Walker Review of Systems Review of Systems: Neuro: (+) Falls, trauma, slurred speech HEENT: (-) CARRASCO, dizziness, dysphagia, visual or auditory changes CV: (-) CP, palpitations, (+) BL LE swelling Resp: (+) SOB GI: (-) appetite changes, N/V/D, bowel changes : (+) urinary changes Skin: (-) rashes (+) scab and blister on right foot Psych: (-) anxiety, depression Physical Exam Physical Exam: Neuro: AAOx4, PERRLA, no aphagia, memory changes, CNII-XII grossly intact HEENT: head normocephalic, moist mucus membranes CV: S1/S2, (+) III/ murmur LSB. (-) G/R, (-) edema, cap refill < 3 seconds Resp: Lungs crackles anteriorly; decreased posterior. On 4LNC GI: Abdomen S/NT/ND, Ax4 bowel sounds, (-) CVA tenderness Musculoskeletal: 5/5 B/L UE strength, 5/5 B/L LE strength. No gait disturbance Skin: (-) rashes , (-) erythema. (+) fluid filled blister, quarter-sized. Numerous scabs on her right leg. Psych: euthymic mood Results & Data Results & Data ([facility]) Vital Signs (Past 12 Hours) Vital Signs Temp Pulse Pulse Resp BP BP Pulse Ox 09/29/22 11:44 82 18 132/60 100 09/29/22 10:53 36.6 C 83 20 121/73 100 O2 Del Method O2 Flow Rate 09/29/22 11:44 Nasal Cannula 4 09/29/22 10:53 Room Air Laboratory Results Short CBC 09/29/22 Range/Units 11:15 WBC 8.89 (4.8-10.8) K/ul Hgb 10.7 L (12.0-16.0) g/dl Hct 34.6 L (37.0-47.0) % Plt Count 269 (130-400) K/uL BMP 09/29/22 11:15 Sodium 133 L Potassium 6.1 H* Chloride 88 L Carbon Dioxide 33 H BUN 86 H Creatinine 3.93 H Glucose 335 H* Calcium 9.7 Liver Function 09/29/22 Range/Units 11:15 Total Bilirubin 0.6 (0.2-1.0) mg/dl AST 32 (13-39) U/L ALT 28 (7-52) U/L Alkaline Phosphatase 83 (34-104) U/L Albumin 3.9 (3.4-5.0) gm/dl Urine 09/29/22 Range/Units 12:17 Urine Color Dark Yellow Urine Appearance Turbid A (Clear) Urine pH 6.5 (4.5-7.5) Ur Specific Pooler 1.024 (1.000-1.030) Urine Protein 4+ H (Negative) Urine Glucose (UA) Negative (Negative) Diagnostic Findings Chest X-Ray 09/29/22 11:02 XR chest 1V portable HISTORY: Weakness. Chest pain, nonspecific COMPARISON: Chest 09/19/2022. FINDINGS: No pneumothorax. The cardiac silhouette remains enlarged. A cardiac valve prosthesis is again noted. The left-sided tube or pacemaker. There is mild interstitial pulmonary edema which has slightly progressed. Small to moderate bilateral pleural effusions and bibasilar densities are not significantly changed. IMPRESSION: 1. Mild interstitial pulmonary edema which has progressed in the interval. 2. Small to moderate bilateral pleural effusions and bibasilar densities pers ist. ACT 112: Negative or not required by law. Electronically signed by: Axel Patel M.D. 09/29/2022 11:36 AM Code Status & VTE Plan Code Status Full Code in the event of cardiac or respiratory arrest VTE Prophylaxis Plan VTE Prophylaxis will be ordered: Yes Supervising Physician Co-Signing Physician Notes I have seen and examined the patient and have discussed the case with the provider above. I agree with the assessment and plan as stated with the following exceptions. 82 yo F with complex cardiac history and worsening renal function over last 6+ months presents with increased shortness of breath, increased weakness, fatigue, decreased appetite, decreased urine output and shortness of breath. Workup today reveals heart failure exacerbation and worsening renal function. Family is at bedside and reports that she appears more somnolent (although she is not confused) and suffers from involuntary jerking of her extremities. On exam she is ill appearing and generally weak. No gross focal neuromuscular deficits are present. Lungs are mostly clear to auscultation with occasional crackles heard throughout all lung mello. Cardiac exam reveals S1/2 heard with a 3/6 MILLER present. Abdomen is soft NTND. Pacemaker in place. There is 2+ pitting edema in the lower extremities to the knees bilaterally. There is a 3cm vesicle on an erythematous base on the dorsal right foot without evidence of surrounding cellulitis or joint inflammation or tenderness. Foot and ankle with normal range of motion. Labwork reviewed and no leukocytosis, H/H 10.7/35 which is around her baseline. INR 4.3 on coumadin. ABG 7.39/53/96. K 6.1, Na 133, Cl 88, HCO3 33, BUN 86, Create 3.93 (recently 1.55 on discharge 09/23/22). Glucose 335, lactate 3.3. Phos 5.8. HS trop 396. BNP 4647. CXR with pulmonary edema and bilateral pleural effusions. Admitted for acute heart failure exacerbation in the setting of acute on chronic kidney failure. She may also have a possible UTI. Agree with ruiz for accurate I/O placement currently. Hyperkalemia treated in the ER with repeat pending. Cont with low potassium diet and fluid restriction. Consult nephrology who is familiar with her. Consulted cardiology. Patient is very sensitive to diuretics and is fluid overloaded. Appreciate coordination between these two specialists groups to optimize her volume status. Rest of plan as noted above. DO Taye
[2022-09-29 14:12] LABS: Phosphorus 5.8 mg/dl (2.5-4.9)
[2022-09-29] MEDS ORDERED: FUROSEMIDE INJ 20 MG/2 ML VIAL IV ONE (14:21)
--- NOTE | 2022-09-29 14:23 | Electrocardiogram Report ---
Test Reason : Blood Pressure : / mmHG Vent. Rate : 075 BPM Atrial Rate : 075 BPM P-R Int : 186 ms QRS Dur : 128 ms QT Int : 416 ms P-R-T Axes : 036 139 068 degrees QTc Int : 464 ms Atrial-sensed ventricular-paced rhythm Abnormal ECG When compared with ECG of 13-SEP-2022 10:44, Vent. rate has increased BY 2 BPM Confirmed by Toi Ren ([id number]) on 09/29/2022 2:23:34 PM Referred By: REFERRED SELF Confirmed By:Toi Ren
[2022-09-29 15:31] LABS: Base Excess ABG 5.7 mEq/L (-9-1.8); HCO3 ABG 32 mmol/L (19-24); Oxygen Saturation ABG 98.7 % (90-95); PCO2 ABG 53 mmHg (35-46); PO2 ABG 96 mmHg (80-95); pH ABG 7.39 (7.35-7.45)
[2022-09-29 15:32] LABS: Allen Test Pos (Pos)
[2022-09-29] MEDS ORDERED: DEXTROSE 50% 50 ML SYRINGE IV PRN (16:01)
[2022-09-29] MEDS ORDERED: PHARMACY GLYCEMIC MGMT CONSULT PRN (16:01)
[2022-09-29] MEDS ORDERED: CARBOHYDRATES FOR HYPOGLYCEMIA PO PRN (16:01)
[2022-09-29] MEDS ORDERED: GLUCAGON FOR INJ 1 MG VIAL SQ PRN (16:01)
[2022-09-29] MEDS ORDERED: GLUCOSE 40% GEL 15 GM TUBE PO PRN (16:01)
[2022-09-29] MEDS ORDERED: GLUCOSE 10 TAB/TUBE PO PRN (16:01)
[2022-09-29] MEDS: INSULIN ASPART PER UNIT SC SCH ×2 (18:25→21:37)
[2022-09-29 20:44] LABS: BUN Creatinine Ratio 20.3 (10-20); Calcium 10.1 mg/dl (8.5-10.1); Est GFR (African American) 9.2 ml/min; Est GFR (Non-African American) 7.9 ml/min; Magnesium 2.3 mg/dl (1.7-2.4); Potassium 5.9 mmol/L (3.5-5.1)
[2022-09-29] MEDS ORDERED: cephALEXin 250 MG CAP PO SCH (21:00)
[2022-09-29] MEDS ORDERED: LANTUS PER UNIT CHARGE SQ SCH (21:00)
[2022-09-29] MEDS: cefTRIAXone SODIUM 1,000 MG in DEXTROSE 5% AD-VAN 50 ML IV SCH (21:14)
[2022-09-29] MEDS: MAGNESIUM OXIDE 400 MG TAB PO SCH (22:08)
[2022-09-29] MEDS: LATANOPROST 0.005% OP SOLN 2.5 ML BTL OPB SCH (22:08)
[2022-09-29] MEDS: rOPINIRole HCL 0.25 MG TABLET PO SCH (22:09)
[2022-09-29] MEDS: GABAPENTIN 300 MG CAP PO SCH (22:09)
[2022-09-29] MEDS: METOPROLOL SUCC 50MG EXT REL TAB PO SCH (22:09)
[2022-09-29] MEDS: RHOPRESSA~ORDER AWAITING ACTION SCH (22:10)
[2022-09-30] MEDS: RHOPRESSA~ORDER AWAITING ACTION SCH ×3 (01:19→17:16)
[2022-09-30] MEDS ORDERED: LEVALBUTEROL HCL 1.25 MG/3 ML NEB ONE (01:53)
[2022-09-30] MEDS: LEVALBUTEROL HCL 1.25 MG/3 ML NEB NEB PRN (01:56)
[2022-09-30] MEDS: LEVOTHYROXINE SODIUM 25 MCG TABLET PO SCH (06:06)
[2022-09-30 06:35] LABS: Hematocrit (blood only) 31.1 % (37.0-47.0); Hemoglobin 9.7 g/dl (12.0-16.0); Mean Corpuscular Hemoglobin 29.8 pg (25.0-34.0); Mean Corpuscular Hgb Conc 31.2 g/dL (32.0-36.0); Mean Corpuscular Volume 95.7 fL (80.0-100.0); Mean Platelet Volume 10.6 fL (9.4-12.4); Nucleated RBC # (auto) 0.03 K/uL (0-0.12); Nucleated RBC % (auto) 0.3 %; Platelet Count 254 K/uL (130-400); RDW Coefficient of Variation 14.9 % (11.5-14.5); RDW Standard Deviation 51.4 fL (36.4-46.3); Red Blood Count 3.25 M/uL (4.20-5.40); White Blood Count 11.01 K/ul (4.8-10.8)
[2022-09-30 06:56] LABS: BUN Creatinine Ratio 19.2 (10-20); Calcium 9.4 mg/dl (8.5-10.1); Creatinine Clr Calc Pharmacy 8.5 ml/min; Est GFR (African American) 8.9 ml/min; Est GFR (Non-African American) 7.7 ml/min; Magnesium 2.4 mg/dl (1.7-2.4); Potassium 6.2 mmol/L (3.5-5.1)
[2022-09-30] MEDS ORDERED: STAT IV STA ×2 (08:02→22:18)
[2022-09-30] MEDS ORDERED: CALCIUM GLUCONATE 10% 1,000 MG in DEXTROSE 5% 50 ML IV ONE ×2 (08:02→22:30)
[2022-09-30] MEDS ORDERED: SODIUM ZIRCONIUM CYCLOSILICATE 10 GM PACKET PO ONE (08:04)
[2022-09-30] MEDS ORDERED: ALBUTEROL 0.5% NEB SOLN 2.5 MG/0.5 ML VIAL NEB ONE (08:04)
--- NOTE | 2022-09-30 08:10 | Pulmonary Consultation ---
Date of Consultation September 30, 2022 Assessment & Plan (1) Decompensated heart failure: (2) Pleural effusion: (3) Acute on chronic respiratory failure with hypoxemia: Plan Chest x-ray 09/29/2021 personally reviewed: Portable film, blunting of bilateral costophrenic angles, increased cardiac silhouette, dual-chamber pacemaker in place On comparing to the chest x-ray done 09/19/2022 there is mild improvement in bilateral pleural effusion --Acute on chronic hypoxic respiratory failure Likely secondary to decompensated CHF on top of CKD With O2 supplementation to keep oxygen saturation between 90-92% given the pulmonary hypertension -- Bilateral pleural effusion Small with dependent atelectasis Continue with diuretics Plan: Bedside ultrasound shows small bilateral pleural effusion with dependent atelectasis. No urgent need for thoracentesis I would recommend diuresis to see if you are able to get rid of this. BiPAP will also help recommend using it [id number] if the patient is able to tolerate it Agree with palliative care given the worsening CKD, hyperkalemia and multiple admissions in the past Please note the above document was generated using voice recognition software. It may contain grammatical, syntax or spelling errors.Any formal questions or concerns about the content, text or information contained within the body of this dictation should be directly addressed to the provider for clarification. History of Present Illness Attending Physician: Chapin Levi MD History of Present Illness 82-year-old female presented to the hospital with complaints of worsening shortness of breath and generalized weakness Past medical history: Coronary artery disease, paroxysmal A-fib, TAVR on warfarin, tachybradycardia syndrome s/p PPM, carotid artery stenosis s/p bilateral and arterectomy's 2012, diabetes, CKD Pulmonary consulted for bilateral pleural effusion At the time of examination patient was saturating 86 7-88% on room air. She was not in any respiratory distress. She did complain of generalized lethargy. Denies any chest pain, no fever or chills No nausea vomiting Appetite is poor. Has been afebrile. Please make note patient is a poor historian Social history: Lifetime non-smoker. Patient worked in [employer] Allergies Allergy/AdvReac Type Severity Reaction Status Date / Time empagliflozin Allergy Intermediate BLOOD IN Verified 08/03/22 21:31 [From Jardiance] URINE, BLADDER INFECTION carbamazepine Allergy Mild RASH Verified 08/03/22 21:31 oxaprozin Allergy Mild RASH/HIVES Verified 08/03/22 21:31 valproic acid Allergy Mild HEAD-TOE Verified 08/03/22 21:31 RASH ranolazine [From Ranexa] AdvReac Dizziness Verified 08/04/22 03:12 Home Medications Medication Instructions Recorded Confirmed Type atorvastatin 80 mg tablet 80 mg PO QAM 06/12/19 09/29/22 History clopidogrel 75 mg tablet 75 mg PO QAM 06/12/19 09/29/22 History fluticasone propionate 50 2 spray intranasal DAILY 06/12/19 09/29/22 History mcg/actuation nasal spray,suspension (Flonase Allergy Relief) levothyroxine 25 mcg tablet 25 mcg PO DAILYBB 06/12/19 09/29/22 History nitroglycerin 0.4 mg sublingual 0.4 mg sublingual DIRECTED PRN 06/12/19 09/29/22 History tablet Chest Pain omeprazole 20 mg tablet,delayed 20 mg PO DAILY 06/12/19 09/29/22 History release ropinirole 0.25 mg tablet 0.25 mg PO HS 06/12/19 09/29/22 History metformin 500 mg tablet 500 mg PO BIDM 07/13/20 09/29/22 History netarsudil 0.02 % eye drops 1 drp OPB HS 11/11/20 09/29/22 History (Rhopressa) evolocumab 140 mg/mL subcutaneous 140 mg subcut .Q14 DAYS 02/27/21 09/29/22 History pen injector (Brad Mcfarlane) glipizide 5 mg tablet 10 mg PO DAILYBB 02/27/21 09/29/22 History isosorbide mononitrate 60 mg 120 mg PO QAM 02/27/21 09/29/22 History tablet,extended release 24 hr warfarin 5 mg tablet 5 mg PO DAILY@1600 02/27/21 09/29/22 History diphenhydramine 25 2 tab PO HS 08/29/21 09/29/22 History mg-acetaminophen 500 mg tablet (Tylenol PM Extra Strength) iron,carbonyl 65 mg-vitamin C 125 1 tab PO QAM 07/12/22 09/29/22 History mg tablet,delayed release (Vitron-C) gabapentin 300 mg capsule 600 mg PO HS 08/03/22 09/29/22 History metoprolol succinate 100 mg 100 mg PO HS 08/03/22 09/29/22 History tablet,extended release 24 hr metoprolol succinate 100 mg 150 mg PO QAM 08/03/22 09/29/22 History tablet,extended release 24 hr latanoprost 0.005 % eye drops 1 drp OPB HS 09/12/22 09/29/22 History magnesium 200 mg tablet 200 mg PO AMHS 09/12/22 09/29/22 History multivitamin with minerals 1 tab PO DAILY 09/12/22 09/29/22 History (Multiple Vitamin-Minerals tablet) allopurinol 100 mg tablet 100 mg PO QAM #30 tabs 09/23/22 09/29/22 Rx digoxin 125 mcg (0.125 mg) tablet 0.125 mg PO MoWeFr 30 days #13 tabs 09/23/22 09/29/22 Rx (Digitek) nitroglycerin 0.4 mg/hr 1 patch transdermal QAM #30 ea 09/23/22 09/29/22 Rx transdermal 24 hour patch (Nitro-Dur) torsemide 10 mg tablet 10 mg PO UD #30 tabs 09/23/22 09/29/22 Rx torsemide 20 mg tablet 20 mg PO UD #60 tabs 09/23/22 09/29/22 Rx cranberry 500 mg capsule 500 mg PO UD 09/29/22 09/29/22 History Patient History Medical History (Updated 09/30/22 @ 11:21 by Enriqueta Chen MD, [facility]) Acute on chronic heart failure with reduced ejection fraction and diastolic dysfunction Afib CAD (coronary artery disease) Cardiac murmur no longer since heart valve surgery 02/2019 Carotid stenosis Cellulitis Cellulitis of foot Chronic anticoagulation Chronic back pain 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 Decompensated heart failure Decompensated heart failure Diabetes mellitus, type 2 GERD (gastroesophageal reflux disease) Glaucoma History of transcatheter aortic valve replacement (TAVR) Hyperlipidemia Hypertension Hypothyroidism Hypoxia, sleep related uses oxygen at hs 2.5 Laryngeal spasm Mitral stenosis On anticoagulant therapy on warfarin On home oxygen therapy 2.5 LITER AT HS Osteoarthritis Peripheral neuropathy Restless leg syndrome Tachy-tanner syndrome Weakness Surgical History History of abdominal surgery for bowel obstruction History of aortic valve replacement 02/26/19 @ [facility] [place]--follows with Dr. Arredondo History of appendectomy History of cardiac cath x4 with a total of 4 stents--last--12/2018 @ [facility] [place] x1 DRUG ELUTING STENT History of colonoscopy History of esophagogastroduodenoscopy (EGD) History of heart artery stent a total of 4 stents--last--12/2018 @ [facility] [place] x1 DRUG ELUTING STENT History of hip surgery left 2 screws placed after total hip replacement History of lumbar laminectomy for spinal cord decompression x2 History of right cataract surgery History of tonsillectomy History of tooth extraction all teeth removed History of total hysterectomy with bilateral salpingo-oophorectomy (BSO) History of total left hip replacement History of total left knee replacement (TKR) History of total right knee replacement (TKR) S/P placement of cardiac pacemaker Aug 2021 S/P TAVR (transcatheter aortic valve replacement) Status post glaucoma surgery right eye Status post trigger finger release left hand Family History Mother Diabetes Osteoporosis Heart disease Grandmother (Maternal) Diabetes Father Heart disease Other Asthma No family history of adverse response to anesthesia Social History Smoking Status: Never smoker Tobacco Type: Cigarettes Second Hand Exposure: No; Hx Alcohol Use: No Hx Substance Use: No Preferred Language: Telugu Communication Ability: Effective Wellness Program Coordinator Required: No Beliefs That Will Affect Care: None marital status: Current Living Situation: Spouse Current Living Situation Comment: Lives with Other Information That Helps Us Care for You: No Feels Safe at Home: Yes Safety Concerns: Feels Safe At This Time Assistive Devices: Cane, Denture - Upper, Denture - Lower, Glasses, Hearing Aid - Bilateral and Walker Review of Systems Review of Systems: All systems reviewed & are unremarkable except as noted in HPI & below Physical Exam Physical Exam: Constitutional: No acute distress HEENT: EOMI, PERRLA Respiratory system: Decreased air entry bilaterally, no wheeze, no rhonchi, positive crackles bilateral lower lobes CVS: S1-S2 positive, positive 2 out of 6 systolic murmur appreciated best at aorta Abdomen: Soft, nontender, nondistended, positive bowel sounds x4 Extremities: +2 pulses bilaterally radialis/ dorsalis pedis, no cyanosis, +2 p itting edema bilateral lower extremity Neuro: Awake alert oriented to self and place Psych: Normal mood and affect G/U: Positive Joyner Results & Data Results & Data ([facility]) Vital Signs (Past 12 Hours) Vital Signs Temp Pulse Pulse Pulse Resp BP BP 09/30/22 08:00 71 09/30/22 07:47 36.3 C L 62 17 107/53 L 09/30/22 01:57 74 22 09/30/22 01:47 36.4 C L 75 20 124/81 09/29/22 22:05 72 09/29/22 21:55 09/29/22 22:00 36.6 C 73 18 138/77 09/29/22 22:05 36.3 C L 73 18 138/77 09/29/22 21:31 21 09/29/22 21:31 146/102 H Pulse Ox O2 Del Method O2 Flow Rate 09/30/22 08:00 09/30/22 07:47 62 L Nasal Cannula 2 09/30/22 01:57 93 Nasal Cannula 2 09/30/22 01:47 94 Nasal Cannula 2 09/29/22 22:05 09/29/22 21:55 Nasal Cannula 2 09/29/22 22:00 97 Nasal Cannula 2.5 09/29/22 22:05 100 Nasal Cannula 2 09/29/22 21:31 95 Nasal Cannula 2 09/29/22 21:31 Laboratory Results 09/30/22 05:52 09/30/22 05:52 PG Care Time/CCT Total # of Minutes Spent Total Time Spent with Patient: Total time spent is greater than 50% in coordination of care (as documented) at patient's floor/unit and/or counseling patient: Coding Level of Care Code 66989 INT INP/OBS CARE 375MIN Diagnoses Decompensated heart failure I50.9 Pleural effusion J90 Acute on chronic respiratory failure with hypoxemia J96.21
[2022-09-30] MEDS: FLUTICASONE PROPIONATE NA SPR 16 GM BTL SCH (08:51)
[2022-09-30] MEDS: allopurinoL 100 MG TAB PO SCH (08:51)
[2022-09-30] MEDS: METOPROLOL SUCC 50MG EXT REL TAB PO SCH ×2 (08:51→20:15)
[2022-09-30] MEDS: INSULIN ASPART PER UNIT SC SCH ×4 (08:52→20:48)
[2022-09-30] MEDS: MAGNESIUM OXIDE 400 MG TAB PO SCH ×2 (08:52→20:16)
[2022-09-30] MEDS: CLOPIDOGREL BISULFATE 75 MG TAB PO SCH (08:52)
[2022-09-30] MEDS: ATORVASTATIN 40 MG TAB PO SCH (08:52)
[2022-09-30] MEDS: ISOSORBIDE MONO EXTENDED REL 60 MG TABCR PO SCH (08:52)
[2022-09-30] MEDS: PANTOprazole 40 MG TAB PO SCH (08:52)
[2022-09-30] MEDS: LANTUS PER UNIT CHARGE SQ SCH ×2 (08:53→20:49)
[2022-09-30] MEDS: NITROGLYCERIN 0.4 MG/HR PATCH TD SCH (08:54)
[2022-09-30] MEDS ORDERED: NON-FORMULARY MEDICATION (Iron,Carbonyl-Vitamin C [Vitron-C] 65 mg iron- 125 mg Tablet,Del PO SCH (09:00)
--- NOTE | 2022-09-30 09:15 | Procedure Note ---
Procedure Note Date of Service September 30, 2022 Note Bedside Ultrasound: Lung: Right:-Small right-sided pleural effusion with dependent atelectasis, B-lines appreciated anteriorly and posteriorly Right:-Small left-sided pleural effusion with dependent atelectasis, B-lines appreciated anteriorly and posteriorly Abdomen: No abdominal ascites Please note the above document was generated using voice recognition software. It may contain grammatical, syntax or spelling errors.Any formal questions or concerns about the content, text or information contained within the body of this dictation should be directly addressed to the provider for clarification. Coding CPT Codes Pulmonary/Thoracic - Pulmonary and Thoracic: 58732 US, Chest, real time with imaging documentation ([id number]) [facility] [place] Procedure Codes (Charges) Pulmonary/Thoracic Procedure 1: Pulmonary and Thoracic: 36651 US, Chest, real time with imaging documentation
--- NOTE | 2022-09-30 10:00 | Nephrology Consultation ---
Date of Consultation September 30, 2022 Assessment & Plan (1) Hyperkalemia: K 6.2 -ordered veltassa 16.8 gm; would avoid Lokelma in this situation due to acute heart failure status -Ordered insulin IV 10 units; already had calcium gluconate this am -continue dialysis diet -gave 60 mg lasix IV x one; will look to start lasix 60 mg IV bid and monitor acid/base status -agree w/ bmp q6h (2) Acute renal failure: Stage III borderline oliguric acute kidney injury likely ischemic ATN in the setting of obligate diuresis and recurrent combined heart failure. Baseline creatinine in the high ones most recently in August 2022. She presented with a creatinine of 3.9 on September 29, up to 4.9 today. creatinine went up in <5 days on OP torsemide; despite its use she still is markedly overl oaded. 150 mL urine output reported so far this admission, so borderline oliguria. -challenging situation clinically ; not likely to do well on dialysis but bears discussion we spent about 15 minutes together discussing severe renal failure and choice to be made between dialysis or conservative care. she does not wish to have more procedure intensive medical care chronically and states that she's "not worried" about dying. I shared my worries about her relatively high risk for hypotension, cardiac arrhythmias and the need for more time in the hospital or dialysis clinic/away from home. Pt does not want dialysis; family aware and supportive of her decision as am I. (3) Decompensated heart failure: f/u cardiology recs digoxin on hold History of Present Illness Reason for Consultation: renal failure Requesting Physician: Dr Kothari Attending Physician: Chapin Levi MD History of Present Illness 82-year-old female whom I am asked to see for renal failure was admitted yesterday for decompensated combined heart failure with acute kidney injury and hyperkalemia. Presenting potassium 6.1 presenting creatinine 3.9. This morning potassium is 6.2 with creatinine 4.9. Also with a right foot cellulitis being treated currently with ceftriaxone. Past medical history includes complex coronary and valvular disease with chronic heart failure; she has had coronary stents in 2016, 2018, 2020; class III-IV angina with inoperable coronary artery disease, paroxysmal atrial fibrillation, at least moderate calcific mitral stenosis, TAVR on chronic anticoagulation, tachy/tanner syndrome status post June 2022 pacemaker, carotid occlusive disease status post bilateral carotid endarterectomies, pulmonary hypertension, COPD, restrictive lung disease, type 2 diabetes, hypertension, hypothyroid, hyperlipidemia, fall February 2021 with multiple rib fractures/hemothorax, chronic laryngeal spasm. Frequently hospitalized past few months, including June, August 03 to , September 12 through both of the latter for decompensated heart failure. Patient also with notable clinical and functional decline over the past 6 months with active discussion of goals of care are underway. She is currently a full code. As her health challenges have increased, her renal function has declined. Her baseline creatinine through May 2022 was 0.9. Creatinine then ran 1.1-1.2 in July 2022. Baseline creatinine in August more in the high ones. Family has stated that patient would not want dialysis. On admission she was given Lasix 20 mg x 1 IV; had insulin IV. Also had bicarb rich fluid for a time and a dose of lokelma. Digoxin is on hold. She had been discharged less than a week ago on antibiotics for a UTI as well as torsemide 30 mg in the morning and 20 mg in the evening with no Aldactone or potassium supplementation. Digoxin was started last admission. Pulmonary is following the patient for consideration of thoracentesis. Pt feels her breathing is better but worries about jerky limb motions. no angina this am. not noticing edema. 2 daughters and are at bedside. Allergies Allergy/AdvReac Type Severity Reaction Status Date / Time empagliflozin Allergy Intermediate BLOOD IN Verified 08/03/22 21:31 [From Jardiance] URINE, BLADDER INFECTION carbamazepine Allergy Mild RASH Verified 08/03/22 21:31 oxaprozin Allergy Mild RASH/HIVES Verified 08/03/22 21:31 valproic acid Allergy Mild HEAD-TOE Verified 08/03/22 21:31 RASH ranolazine [From Ranexa] AdvReac Dizziness Verified 08/04/22 03:12 Home Medications Medication Instructions Recorded Confirmed Type atorvastatin 80 mg tablet 80 mg PO QAM 06/12/19 09/29/22 History clopidogrel 75 mg tablet 75 mg PO QAM 06/12/19 09/29/22 History fluticasone propionate 50 2 spray intranasal DAILY 06/12/19 09/29/22 History mcg/actuation nasal spray,suspension (Flonase Allergy Relief) levothyroxine 25 mcg tablet 25 mcg PO DAILYBB 06/12/19 09/29/22 History nitroglycerin 0.4 mg sublingual 0.4 mg sublingual DIRECTED PRN 06/12/19 09/29/22 History tablet Chest Pain omeprazole 20 mg tablet,delayed 20 mg PO DAILY 06/12/19 09/29/22 History release ropinirole 0.25 mg tablet 0.25 mg PO HS 06/12/19 09/29/22 History metformin 500 mg tablet 500 mg PO BIDM 07/13/20 09/29/22 History netarsudil 0.02 % eye drops 1 drp OPB HS 11/11/20 09/29/22 History (Rhopressa) evolocumab 140 mg/mL subcutaneous 140 mg subcut .Q14 DAYS 02/27/21 09/29/22 History pen injector (Brad Mcfarlane) glipizide 5 mg tablet 10 mg PO DAILYBB 02/27/21 09/29/22 History isosorbide mononitrate 60 mg 120 mg PO QAM 02/27/21 09/29/22 History tablet,extended release 24 hr warfarin 5 mg tablet 5 mg PO DAILY@1600 02/27/21 09/29/22 History diphenhydramine 25 2 tab PO HS 08/29/21 09/29/22 History mg-acetaminophen 500 mg tablet (Tylenol PM Extra Strength) iron,carbonyl 65 mg-vitamin C 125 1 tab PO QAM 07/12/22 09/29/22 History mg tablet,delayed release (Vitron-C) gabapentin 300 mg capsule 600 mg PO HS 08/03/22 09/29/22 History metoprolol succinate 100 mg 100 mg PO HS 08/03/22 09/29/22 History tablet,extended release 24 hr metoprolol succinate 100 mg 150 mg PO QAM 08/03/22 09/29/22 History tablet,extended release 24 hr latanoprost 0.005 % eye drops 1 drp OPB HS 09/12/22 09/29/22 History magnesium 200 mg tablet 200 mg PO AMHS 09/12/22 09/29/22 History multivitamin with minerals 1 tab PO DAILY 09/12/22 09/29/22 History (Multiple Vitamin-Minerals tablet) allopurinol 100 mg tablet 100 mg PO QAM #30 tabs 09/23/22 09/29/22 Rx digoxin 125 mcg (0.125 mg) tablet 0.125 mg PO MoWeFr 30 days #13 tabs 09/23/22 09/29/22 Rx (Digitek) nitroglycerin 0.4 mg/hr 1 patch transdermal QAM #30 ea 09/23/22 09/29/22 Rx transdermal 24 hour patch (Nitro-Dur) torsemide 10 mg tablet 10 mg PO UD #30 tabs 09/23/22 09/29/22 Rx torsemide 20 mg tablet 20 mg PO UD #60 tabs 09/23/22 09/29/22 Rx cranberry 500 mg capsule 500 mg PO UD 09/29/22 09/29/22 History Patient History Medical History Acute on chronic heart failure with reduced ejection fraction and diastolic dysfunction Afib CAD (coronary artery disease) Cardiac murmur no longer since heart valve surgery 02/2019 Carotid stenosis Cellulitis Cellulitis of foot Chronic anticoagulation Chronic back pain 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 Decompensated heart failure Decompensated heart failure Diabetes mellitus, type 2 GERD (gastroesophageal reflux disease) Glaucoma History of transcatheter aortic valve replacement (TAVR) Hyperlipidemia Hypertension Hypothyroidism Hypoxia, sleep related uses oxygen at hs 2.5 Laryngeal spasm Mitral stenosis On anticoagulant therapy on warfarin On home oxygen therapy 2.5 LITER AT HS Osteoarthritis Peripheral neuropathy Restless leg syndrome Tachy-tanner syndrome Weakness Surgical History History of abdominal surgery for bowel obstruction History of aortic valve replacement 02/26/19 @ [facility] [place]--follows with Dr. Arredondo History of appendectomy History of cardiac cath x4 with a total of 4 stents--last--12/2018 @ [facility] [place] x1 DRUG ELUTING STENT History of colonoscopy History of esophagogastroduodenoscopy (EGD) History of heart artery stent a total of 4 stents--last--12/2018 @ [facility] [place] x1 DRUG ELUTING STENT History of hip surgery left 2 screws placed after total hip replacement History of lumbar laminectomy for spinal cord decompression x2 History of right cataract surgery History of tonsillectomy History of tooth extraction all teeth removed History of total hysterectomy with bilateral salpingo-oophorectomy (BSO) History of total left hip replacement History of total left knee replacement (TKR) History of total right knee replacement (TKR) S/P placement of cardiac pacemaker Aug 2021 S/P TAVR (transcatheter aortic valve replacement) Status post glaucoma surgery right eye Status post trigger finger release left hand Family History Mother Diabetes Osteoporosis Heart disease Grandmother (Maternal) Diabetes Father Heart disease Other Asthma No family history of adverse response to anesthesia Social History Smoking Status: Never smoker Tobacco Type: Cigarettes Second Hand Exposure: No; Hx Alcohol Use: No Hx Substance Use: No Preferred Language: Indonesian Communication Ability: Effective Cut Off Man Required: No Beliefs That Will Affect Care: None marital status: Current Living Situation: Spouse Current Living Situation Comment: Lives with Other Information That Helps Us Care for You: No Feels Safe at Home: Yes Safety Concerns: Feels Safe At This Time Assistive Devices: Cane, Denture - Upper, Denture - Lower, Glasses, Hearing Aid - Bilateral and Walker Review of Systems Review of Systems: All systems reviewed & are unremarkable except as noted in HPI & below Physical Exam Constitutional: well developed, well nourished, + frail appearing and cooperative; no acute distress Eyes: EOM intact bilaterally ENMT: Ears: no external ear abnormality Nose: no external nose abnormality Mouth: + dry oral mucous membranes Neck: no nuchal rigidity Respiratory: normal respiratory effort Auscultation: + diminished lung sounds (extremely) Cardiovascular: Rate/Rhythm: regular rate and regular rhythm Heart Sounds: + murmur Extremities: + edema (1-2+) Gastrointestinal (Abdomen): Inspection/Auscultation: normal bowel sounds Percussion/Palpation: abdomen soft; abdomen nontender Musculoskeletal: Extremities: strength 5/5 throughout Skin: no rashes, warm and dry Neurologic: randall, fluent speech, no tremor Psychiatric: Orientation: oriented x 3 Results & Data ([facility]) Vital Signs (Past 12 Hours) Vital Signs Temp Pulse Pulse Pulse Resp BP Pulse Ox 09/30/22 08:25 82 20 87 L 09/30/22 07:12 09/30/22 08:00 71 09/30/22 07:47 36.3 C L 62 17 107/53 L 62 L 09/30/22 01:57 74 22 93 09/30/22 01:47 36.4 C L 75 20 124/81 94 09/29/22 22:05 72 09/29/22 22:00 36.6 C 73 18 138/77 97 09/29/22 22:05 36.3 C L 73 18 138/77 100 O2 Del Method O2 Flow Rate 09/30/22 08:25 Room Air 09/30/22 07:12 Nasal Cannula 2 09/30/22 08:00 09/30/22 07:47 Nasal Cannula 2 09/30/22 01:57 Nasal Cannula 2 09/30/22 01:47 Nasal Cannula 2 09/29/22 22:05 09/29/22 22:00 Nasal Cannula 2.5 09/29/22 22:05 Nasal Cannula 2 Laboratory Results 09/30/22 05:52 09/30/22 05:52 dig level reviewed UA reviewed Blood and urine cultures pending ABG reviewed Diagnostic Findings Chest x-ray this morning Mild interstitial and progressive pulmonary edema with small to moderate bilateral pleural effusions and bibasilar densities CT abdomen pelvis January 2022 FINDINGS: A 1.6 cm subpleural density within the right lower lobe on image 48 of [id number] is either unchanged or slightly decreased since CT of August 30, 2021. This remains indeterminate. No pneumatosis, free air or portal venous gas is present. Prosthetic aortic valve is noted as well as partially visualize pacer leads. Thinning of the left ventricular apex with mild outpouching is noted. Multiple old right-sided rib fractures are present. There are small gallstones within the gallbladder. No evidence for acute cholecystitis. There is no evidence for traumatic injury to the liver, spleen, adrenal glands, kidneys or pancreas. There is moderate bilateral renal cortical thinning. There is no hydronephrosis. Colonic diverticulosis is noted without evidence for acute diverticulitis. No hemoperitoneum or pneumoperitoneum is present. Postoperative findings within the lumbosacral spine are noted. There is a left sacroiliac joint fusion. No acute fracture within visualized skeletal structures. IMPRESSION: 1. No acute traumatic findings within the abdomen or pelvis. 2. 1.6 cm subpleural density within the right lower lobe which is either unchanged or slightly decreased since chest CT of August 30, 2021. This remains indeterminate. A follow-up chest CT in 6 months is recommended. 3. Colonic diverticulosis. No evidence for acute diverticulitis. 4. Cholelithiasis. (1) Acute renal failure Acute renal failure type: unspecified Qualified Code(s): N17.9 - Acute kidney failure, unspecified
--- NOTE | 2022-09-30 10:18 | Cardiology Consultation ---
Date of Consultation September 30, 2022 Assessment & Plan (1) Acute on chronic combined systolic and diastolic heart failure: (2) Acute hyperkalemia: (3) Pleural effusion: (4) Cellulitis of foot: (5) Acute renal failure: (6) Angina pectoris: Plan Patient readmitted for acute decompensated HFrEF with worsening b/l pleural effusions, hypoxia, and complicated by MARY with creatinine now 4.9 and potassium > 6 limiting use of diuretic therapy. Pulmonology has been consulted to consider thoracentesis. INR was 4.3 yesterday. Repeat ordered this morning. Hold coumadin. Nephrology consulted for MARY/hyperkalemia. Hold digoxin No ERNST/ARB. Diuretics on hold including torsemide and spironolactone for now. Unfortunately residential patient will require ongoing diuretic therapy to aid her volume status, making it a difficult situation. May need to consider dialysis for fluid removal? She also has class 3-4 chronic angina with inoperable CAD. Most recent admission, nitro patch was added to Isosorbide. she has been intolerant of Ranexa. Continue home medications for now. Monitor BP. Currently she denies chest pain/angina at rest. Recommend palliative care consult. Case discussed with Dr. Carter Will follow. Supervising Physician Co-Signing Physician Notes Supervising Physician Attestation: I have personally performed a history and physical examination on the patient. I agree with the physician inventory control assistant's findings and plan as documented with the following additions. Subjective: Patient sleeping at the time of my assessment, but easily awakened. No complaints. Exam: Cardiovascular: Regular rhythm, 2/6 systolic murmur, 1+ lower extremity edema, JVD Data: As noted above Assessment and Plan: Patient has been seen by nephrology and palliative care. To be discharged on home hospice tomorrow. Jay Carter, DO History of Present Illness Reason for Consultation: CHF Requesting Physician: Dr. Kothari Attending Physician: Dr. Carter History of Present Illness Patient is a complex 82 year old female with multiple admissions over the last several months for crescendo anginal (inoperable CAD) and combined systolic/diastolic heart failure exacerbations requiring use of IV lasix, and intensifying diuretic therapy as outpatient. Most recently patient was admitted in Aug 2022 with acute on chronic combined systolic and diastolic congestive heart failure with associated bilateral pleural effusions, CCS Class 3 to 4 angina pectoris. Treated with IV then oral diuretics with improvement. Patient declined consideration for repeat chest ultrasound and referral for thoracentesis. Nitro-Dur patch 0.4 mg/hour added to isosorbide. Low-dose digoxin added for HFrEF, 125 mcg MWF. Declined inpatient rehabilitation following hospitalization. Apparently patient was doing well for a few days when she returned home. However, earlier this week, symptoms progressed including worsening SOB with exertion, chest tightness with use of SL nitro, right foot blister, and worsening tremors and falls due to weakness. Patient was seen by Jesse Cole PA-C 2 days ago for hospital f/u and noted all thse complaints. Lab work was obtained demonstrating worsening renal function and elevated potassium levels. By the time, results were reviewed, and patient contacted, she was back in ER. Daughter called ambulance for worsening weakness, SOB and she was brought to ER. Upon arrival in ER, unfortunately creatinine even higher at 3.9 with elevated potassium. Due to respiratory distress, she was given one dose IV lasix. She has been found to have large B/L pleural effusions. INR was elevated at 4.3. Coumadin held. Digoxin held on admission. Pulm has been consulted to consider therapeutic thoracentesis. Nephrology consulted for MARY/hyperkalemia. On admission, per hospitalist, patient did not want to consider dialysis. She was started on antibiotics due to right foot blister, cellulitis. Palliative care also consulted. This morning, patient resting in bed. Significant conversational dyspnea noted. Slow to answer questions, but responds appropriately. No chest pain overnight. Unfortunately creatinine trending higher this morning at 4.9 and potassium remains significantly elevated > 6. Past Medical/Surgical History: 1. ASCVD 1. Status post PCI of the proximal LAD with a DENISE on on May 19, 2017 2. Status post PCI of the mid LAD with a 2.75 x 26 mm Resolute Segundo drug eluting stent (overlapping with the previously placed Xience drug eluting) on 01/25/2019 3. Presentation in November 2020 with cescendo angina. Diagnostic cardiac catheterization demonstrating a 95% mid LAD stenosis distal to the prior stent with intervention complicated by significant dissection of the left main coronary artery extending into the left circumflex and left anterior descending. The mid LCX into the OM3 was stented with a drug eluting stent with resultant KHARI grade III flow, residual nonflow limiting dissection in the proximal LCX. Attempts to cross the LAD occlusion were unsuccessful. 4. Class 3 angina pectoris with low level exertional tolerance 5. Ischemic cardiomyopathy with resting echocardiography in June 2022 revealing mild to moderate reduction in LV systolic function, ejection fraction 35 to 40% 2. Paroxysmal atrial fibrillation with a rapid ventricular response first documented while hospitalized at [facility] in November 2020, highly symptomatic, significant angina symptoms 3. Severe aortic valve stenosis status post February 26, 2019 TAVR with a #23 mm Najera Sade S3 Valve on 02/26/2019. 4. Calcific mitral stenosis, moderate or greater. 5. 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 6. Carotid occlusive disease. Status post left carotid endarterectomy in 05/2013. Status post June 2016 right carotid endarterectomy by Dr. Jose. 7. Chronic obstructive and restrictive pulmonary disease, asthma 8. Hypertension. 9. Hyperlipidemia. 10. Diabetes mellitus with neuropathy. Allergies Allergy/AdvReac Type Severity Reaction Status Date / Time empagliflozin Allergy Intermediate BLOOD IN Verified 08/03/22 21:31 [From Jardiance] URINE, BLADDER INFECTION carbamazepine Allergy Mild RASH Verified 08/03/22 21:31 oxaprozin Allergy Mild RASH/HIVES Verified 08/03/22 21:31 valproic acid Allergy Mild HEAD-TOE Verified 08/03/22 21:31 RASH ranolazine [From Ranexa] AdvReac Dizziness Verified 08/04/22 03:12 Home Medications Medication Instructions Recorded Confirmed Type atorvastatin 80 mg tablet 80 mg PO QAM 06/12/19 09/29/22 History clopidogrel 75 mg tablet 75 mg PO QAM 06/12/19 09/29/22 History fluticasone propionate 50 2 spray intranasal DAILY 06/12/19 09/29/22 History mcg/actuation nasal spray,suspension (Flonase Allergy Relief) levothyroxine 25 mcg tablet 25 mcg PO DAILYBB 06/12/19 09/29/22 History nitroglycerin 0.4 mg sublingual 0.4 mg sublingual DIRECTED PRN 06/12/19 09/29/22 History tablet Chest Pain omeprazole 20 mg tablet,delayed 20 mg PO DAILY 06/12/19 09/29/22 History release ropinirole 0.25 mg tablet 0.25 mg PO HS 06/12/19 09/29/22 History metformin 500 mg tablet 500 mg PO BIDM 07/13/20 09/29/22 History netarsudil 0.02 % eye drops 1 drp OPB HS 11/11/20 09/29/22 History (Rhopressa) evolocumab 140 mg/mL subcutaneous 140 mg subcut .Q14 DAYS 02/27/21 09/29/22 History pen injector (Brad Mcfarlane) glipizide 5 mg tablet 10 mg PO DAILYBB 02/27/21 09/29/22 History isosorbide mononitrate 60 mg 120 mg PO QAM 02/27/21 09/29/22 History tablet,extended release 24 hr warfarin 5 mg tablet 5 mg PO DAILY@1600 02/27/21 09/29/22 History diphenhydramine 25 2 tab PO HS 08/29/21 09/29/22 History mg-acetaminophen 500 mg tablet (Tylenol PM Extra Strength) iron,carbonyl 65 mg-vitamin C 125 1 tab PO QAM 07/12/22 09/29/22 History mg tablet,delayed release (Vitron-C) gabapentin 300 mg capsule 600 mg PO HS 08/03/22 09/29/22 History metoprolol succinate 100 mg 100 mg PO HS 08/03/22 09/29/22 History tablet,extended release 24 hr metoprolol succinate 100 mg 150 mg PO QAM 08/03/22 09/29/22 History tablet,extended release 24 hr latanoprost 0.005 % eye drops 1 drp OPB HS 09/12/22 09/29/22 History magnesium 200 mg tablet 200 mg PO AMHS 09/12/22 09/29/22 History multivitamin with minerals 1 tab PO DAILY 09/12/22 09/29/22 History (Multiple Vitamin-Minerals tablet) allopurinol 100 mg tablet 100 mg PO QAM #30 tabs 09/23/22 09/29/22 Rx digoxin 125 mcg (0.125 mg) tablet 0.125 mg PO MoWeFr 30 days #13 tabs 09/23/22 09/29/22 Rx (Digitek) nitroglycerin 0.4 mg/hr 1 patch transdermal QAM #30 ea 09/23/22 09/29/22 Rx transdermal 24 hour patch (Nitro-Dur) torsemide 10 mg tablet 10 mg PO UD #30 tabs 09/23/22 09/29/22 Rx torsemide 20 mg tablet 20 mg PO UD #60 tabs 09/23/22 09/29/22 Rx cranberry 500 mg capsule 500 mg PO UD 09/29/22 09/29/22 History Patient History Medical History (Updated 09/30/22 @ 16:07 by Caprice Alarcon DNP) Acute on chronic heart failure with reduced ejection fraction and diastolic dysfunction Advanced care planning/counseling discussion Afib CAD (coronary artery disease) Cardiac murmur no longer since heart valve surgery 02/2019 Carotid stenosis Cellulitis Cellulitis of foot Chronic anticoagulation Chronic back pain 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 Decompensated heart failure Decompensated heart failure Diabetes mellitus, type 2 GERD (gastroesophageal reflux disease) Glaucoma History of transcatheter aortic valve replacement (TAVR) Hyperlipidemia Hypertension Hypothyroidism Hypoxia, sleep related uses oxygen at hs 2.5 Laryngeal spasm Mitral stenosis On anticoagulant therapy on warfarin On home oxygen therapy 2.5 LITER AT HS Osteoarthritis Palliative care encounter Peripheral neuropathy Restless leg syndrome Tachy-reza syndrome Weakness Surgical History History of abdominal surgery for bowel obstruction History of aortic valve replacement 02/26/19 @ [facility]--follows with Dr. Arredondo History of appendectomy History of cardiac cath x4 with a total of 4 stents--last--12/2018 @ [facility] x1 DRUG ELUTING STENT History of colonoscopy History of esophagogastroduodenoscopy (EGD) History of heart artery stent a total of 4 stents--last--12/2018 @ [facility] x1 DRUG ELUTING STENT History of hip surgery left 2 screws placed after total hip replacement History of lumbar laminectomy for spinal cord decompression x2 History of right cataract surgery History of tonsillectomy History of tooth extraction all teeth removed History of total hysterectomy with bilateral salpingo-oophorectomy (BSO) History of total left hip replacement History of total left knee replacement (TKR) History of total right knee replacement (TKR) S/P placement of cardiac pacemaker Aug 2021 S/P TAVR (transcatheter aortic valve replacement) Status post glaucoma surgery right eye Status post trigger finger release left hand Family History Mother Diabetes Osteoporosis Heart disease Grandmother (Maternal) Diabetes Father Heart disease Other Asthma No family history of adverse response to anesthesia Social History Smoking Status: Never smoker Tobacco Type: Cigarettes Second Hand Exposure: No; Hx Alcohol Use: No Hx Substance Use: No Preferred Language: [place] Communication Ability: Effective Election Clerk Required: No Beliefs That Will Affect Care: None marital status: Current Living Situation: Spouse Current Living Situation Comment: Lives with Other Information That Helps Us Care for You: No Feels Safe at Home: Yes Safety Concerns: Feels Safe At This Time Assistive Devices: Cane, Denture - Upper, Denture - Lower, Glasses, Hearing Aid - Bilateral and Walker Review of Systems Review of Systems: All systems reviewed & are unremarkable except as noted in HPI & below Physical Exam Constitutional: WD/WN, vitals as above Respiratory: + respiratory distress and + uses accessory muscles; + not able to speak in complete sentence Auscultation: + diminished lung sounds and + crackles Cardiovascular: Rate/Rhythm: regular rate and regular rhythm Heart Sounds: + murmur (II/ systolic murmur LSB) Vessels: + JVD Extremities: + edema (1+ pretibial edema) Gastrointestinal (Abdomen): normal bowel sounds, soft, nontender, no hepatosplenomegaly Results & Data ([facility]) Vital Signs (Past 12 Hours) Vital Signs Temp Pulse Pulse Pulse Resp BP Pulse Ox 09/30/22 08:25 82 20 87 L 09/30/22 07:12 09/30/22 08:00 71 09/30/22 07:47 36.3 C L 62 17 107/53 L 62 L 09/30/22 01:57 74 22 93 09/30/22 01:47 36.4 C L 75 20 124/81 94 09/29/22 22:05 72 09/29/22 22:00 36.6 C 73 18 138/77 97 09/29/22 22:05 36.3 C L 73 18 138/77 100 O2 Del Method O2 Flow Rate 09/30/22 08:25 Room Air 09/30/22 07:12 Nasal Cannula 2 09/30/22 08:00 09/30/22 07:47 Nasal Cannula 2 09/30/22 01:57 Nasal Cannula 2 09/30/22 01:47 Nasal Cannula 2 09/29/22 22:05 09/29/22 22:00 Nasal Cannula 2.5 09/29/22 22:05 Nasal Cannula 2 Laboratory Results Cardiac Enzymes 09/29/22 09/29/22 09/29/22 Range/Units 11:15 11:15 19:28 AST 32 (13-39) U/L Troponin I High Sens 395.6 H* 471.4 H* (0-14) pg/ml B-Natriuretic Peptide 4647 H (0-100) pg/ml Coagulation 09/29/22 09/29/22 Range/Units 11:15 11:15 PT 42.3 H (9.0-12.0) Seconds APTT 35.1 H (21.0-31.0) Seconds B-Natriuretic Peptide 4647 H (0-100) pg/ml CBC 09/29/22 09/30/22 Range/Units 11:15 05:52 WBC 8.89 11.01 H (4.8-10.8) K/ul RBC 3.61 L 3.25 L (4.20-5.40) M/uL Hgb 10.7 L 9.7 L (12.0-16.0) g/dl Hct 34.6 L 31.1 L (37.0-47.0) % Plt Count 269 254 (130-400) K/uL Neut # (Auto) 6.78 H (1.40-6.50) K/uL Lymph # (Auto) 1.24 (1.2-3.4) K/uL [place] # (Auto) 0.73 H (0.11-0.59) K/uL Eos # (Auto) 0.02 (0-0.50) K/uL Baso # (Auto) 0.06 (0-0.2) K/uL Comprehensive Metabolic Panel 09/29/22 09/29/22 09/30/22 Range/Units 11:15 19:28 05:52 Sodium 133 L 133 L 135 L (136-145) mmol/L Potassium 6.1 H* 5.9 H 6.2 H* (3.5-5.1) mmol/L Chloride 88 L 91 L 91 L (98-107) mmol/L Carbon Dioxide 33 H 34 H 37 H (21-32) mmol/L BUN 86 H 97 H 94 H (6-23) mg/dl Creatinine 3.93 H 4.77 H* D 4.90 H* (0.6-1.2) mg/dl Glucose 335 H* 177 H 145 H (70-99(Fasting)) mg/dl Calcium 9.7 10.1 9.4 (8.5-10.1) mg/dl AST 32 (13-39) U/L ALT 28 (7-52) U/L Alkaline Phosphatase 83 (34-104) U/L Total Protein 6.7 (6.0-8.3) gm/dl Albumin 3.9 (3.4-5.0) gm/dl Intake and Output 09/29/22 09/30/22 09/30/22 22:59 06:59 14:59 Intake Total 50 / 596.250 60 / 60 Output Total 100 / 150 50 / 150 Balance -50 / 446.250 -50 / 446.250 60 / 60 Intake: IV 50 / 596.250 60 / 60 Calcium Gluconate 10% 1,000 mg 60 / 60 In Dextrose 5% 50 ml @ 240 mls/ hr IV NOW ONE Rx#:[id number] cefTRIAXone SODIUM 1,000 mg In 50 / 50 Dextrose 5% Ad-Van 50 ml @ 100 mls/hr IV Q24H [facility] Rx#:[id number] Output: Urine Amount (Catheter) 100 / 150 50 / 150 Joyner/Indwelling 100 / 150 50 / 150 Other: Weight 77.9 kg 73.7 kg Weight Measurement Method Chair Scale Built in [facility] Diagnostic Findings Telemetry reviewed - intermittent pacing with NSR. [facility] PAC's. EKG on admission: Atrial-sensed ventricular-paced rhythm Abnormal ECG When compared with ECG of 13-SEP-2022 10:44, Vent. rate has increased BY 2 BPM Chest X-Ray 09/29/22 11:02 XR chest 1V portable HISTORY: Weakness. Chest pain, nonspecific COMPARISON: Chest 09/19/2022. FINDINGS: No pneumothorax. The cardiac silhouette remains enlarged. A cardiac valve prosthesis is again noted. The left-sided tube or pacemaker. There is mild interstitial pulmonary edema which has slightly progressed. Small to moderate bilateral pleural effusions and bibasilar densities are not significantly changed. IMPRESSION: 1. Mild interstitial pulmonary edema which has progressed in the interval. 2. Small to moderate bilateral pleural effusions and bibasilar densities persist. Medications Administered Current Inpatient Medications Acetaminophen (Acetaminophen 325 Mg Tab) 650 mg PO Q4H PRN PRN Reason: Pain or Fever Stop: 10/29/22 12:52 Al Hydrox/Mg Hydrox/Simethicone (Aluminum/Magnesium Susp 30 Ml Udc) 15 ml PO Q4H PRN PRN Reason: Dyspepsia Stop: 10/29/22 12:52 Allopurinol (Allopurinol 100 Mg Tab) [facility] [place] [facility] [place] Stop: 10/30/22 08:59 Last Admin: 09/30/22 08:51 Dose: 100 mg Atorvastatin Calcium (Atorvastatin 40 Mg Tab) 80 mg PO [facility] Stop: 10/30/22 08:59 Last Admin: 09/30/22 08:52 Dose: 80 mg Clopidogrel Bisulfate (Clopidogrel Bisulfate 75 Mg Tab) 75 [facility] [place] [facility] [place]: 10/30/22 08:59 Last Admin: 09/30/22 08:52 Dose: 75 mg Dextrose (Dextrose 50% 50 Ml Syringe) 25 - 50 ml IV UD PRN; Protocol PRN Reason: Hypoglycemia Protocol Stop: 10/29/22 16:00 Digoxin (Digoxin 0.125 Mg Tab) 0.125 mg PO MoWeFr [facility] Stop: 10/30/22 15:59 Fluticasone Propionate (Fluticasone Propionate Na Spr 16 Gm Btl) 2 sprays NA DAILY [facility] Stop: 10/30/22 08:59 Last Admin: 09/30/22 08:51 Dose: 2 sprays Gabapentin (Gabapentin 300 Mg Cap) 600 mg PO HS [facility] Stop: 10/29/22 20:59 Last Admin: 09/29/22 22:09 Dose: 600 mg Glucagon (Glucagon For Inj 1 Mg Vial) 1 mg SQ UD PRN; Protocol PRN Reason: Hypoglycemia Protocol Stop: 10/29/22 16:00 Glucose (Glucose 40% Gel 15 Gm Tube) 15 - 30 gm PO UD PRN; Protocol PRN Reason: Hypoglycemia Protocol Stop: 10/29/22 16:00 Glucose (Glucose 10 Tab/Tube) 4 - 8 tab PO UD PRN; Protocol PRN Reason: Hypoglycemia Treatment Stop: 10/29/22 16:00 Ceftriaxone Sodium 1,000 mg/ (Dextrose) 50 mls @ 100 mls/hr IV Q24H [facility]; Protocol Stop: 10/04/22 19:29 Last Infusion: 09/29/22 22:00 Dose: Infused Insulin Aspart (Insulin Aspart Per Unit) 0 units SC ACHS [facility]; Protocol Stop: 10/29/22 16:29 Last Admin: 09/30/22 08:52 Dose: 4 units Insulin Glargine (Lantus Per Unit Charge) 5 units SQ BID [facility]; Protocol Stop: 10/30/22 08:59 Last Admin: 09/30/22 08:53 Dose: 5 units Isosorbide Mononitrate (Isosorbide [place] Extended Rel 60 Mg Tabcr) 120 mg PO QAM [facility] Stop: 10/30/22 08:59 Last Admin: 09/30/22 08:52 Dose: 120 mg Latanoprost (Latanoprost 0.005% Op Soln 2.5 Ml Btl) [address] [facility] Stop: 10/29/22 20:59 Last Admin: 09/29/22 22:08 Dose: 1 drops Levalbuterol HCl (Levalbuterol Hcl 1.25 Mg/3 Ml Neb) 1.25 mg NEB Q4H PRN; Protocol PRN Reason: Shortness Of Breath Or Wheezing Stop: 10/30/22 01:29 Last Admin: 09/30/22 01:56 Dose: 1.25 mg Levothyroxine Sodium (Levothyroxine Sodium 25 Mcg Tablet) 25 mcg PO DAILYBB [facility] Stop: 10/30/22 06:29 Last Admin: 09/30/22 06:06 Dose: 25 mcg Magnesium Hydroxide (Magnesium Hydroxide Susp 30 Ml Udc) 30 ml PO Q12H PRN PRN Reason: Constipation Stop: 10/29/22 12:52 Magnesium Oxide (Magnesium Oxide 400 Mg Tab) [facility] Stop: 10/29/22 20:59 Last Admin: 09/30/22 08:52 Dose: 200 mg Metoprolol Succinate (Metoprolol Succ 50mg Ext Rel Tab) [address] [facility] Stop: 10/29/22 20:59 Last Admin: 09/29/22 22:09 Dose: 100 mg Metoprolol Succinate (Metoprolol Succ 50mg Ext Rel Tab) 150 mg PO QAM [facility] Stop: 10/30/22 08:59 Last Admin: 09/30/22 08:51 Dose: 150 mg Miscellaneous (Carbohydrates For Hypoglycemia ) 15 - 30 gm PO UD PRN PRN Reason: Hypoglycemia Protocol Stop: 10/29/22 16:00 Miscellaneous (Rhopressa~Order Awaiting Action) 1 each N/A QS [facility] Stop: 10/29/22 16:29 Last Admin: 09/30/22 08:33 Dose: Not Given Miscellaneous (Remove Nitro-Dur Patch) 1 each N/A DAILY@2100 [facility] Stop: 10/29/22 20:59 Last Admin: 09/29/22 22:09 Dose: 1 each Miscellaneous Information (Pharmacy Glycemic Mgmt Consult) 1 each N/A UD PRN PRN Reason: Consult Stop: 10/29/22 16:00 Nitroglycerin (Nitroglycerin 0.4 Mg/Hr Patch) 1 patch TD QAM [facility] Stop: 10/30/22 08:59 Last Admin: 09/30/22 08:54 Dose: 1 patch Ondansetron HCl (Ondansetron Inj 2 Mg/Ml 2 Ml Vial) 4 mg IV Q6H PRN PRN Reason: Nausea Stop: 10/29/22 12:52 Pantoprazole Sodium (Pantoprazole 40 Mg Tab) 40 mg PO DAILY [facility] Stop: 10/30/22 08:59 Last Admin: 09/30/22 08:52 Dose: 40 mg Polyethylene Glycol (Polyethylene (Miralax) 17 Gm Pack) 17 gm PO DAILY PRN PRN Reason: Constipation Stop: 10/29/22 12:52 Ropinirole HCl (Ropinirole Hcl 0.25 Mg Tablet) 0.25 mg PO HS [facility] Stop: 10/29/22 20:59 Last Admin: 09/29/22 22:09 Dose: 0.25 mg (1) Acute renal failure Acute renal failure type: unspecified Qualified Code(s): N17.9 - Acute kidney failure, unspecified
--- NOTE | 2022-09-30 10:24 | Palliative Care Consultation ---
Date of Consultation September 30, 2022 Assessment & Plan (1) Palliative care encounter: Met with pt/family. Provided overview of Palliative Medicine, a subspecialty that provides specialized medical care for people living with a serious illness by offering a focus on quality of life. Palliative Medicine is often conflated with hospice: I advised patient/family that Palliative and hospice can be partners but we are not the same. It is important to understand the difference so that we may be informed, and not afraid. Palliative Medicine works to improve QOL through reduction of symptom burden/more control over their illness, for both the patient and family. Palliative medicine clinicians are board certified, specially-trained and another member of the patient's medical care team. We often provide an extra layer of support because our care is based on the needs of the patient, not the prognosis; as such, it's appropriate at any age/advancing stage of a serious illness and can be provided along with curative treatment. Palliative Medicine clinicians are also trained in advanced communication methodologies, to facilitate complex discussions about advanced illness planning, which are needed to help assure that the treatment choices match the patient's goals, aka delivering Goal Concordant care. Finally, we discussed that hospice is a visiting nurse service that focuses on care delivered at the very end of life for patients with terminal illness, with life expectancy less than 6 month. (2) Advanced care planning/counseling discussion: 33 min face to face with pt Patient states she is aware that she has an end-stage heart failure, her kidneys are failing due to the medicine she took for her heart failure, and she does not want dialysis. She acknowledges that she likely does not have a long time left to live. She tells me that she wanted to go back home but her told her if she cannot come home and needed to go to a assisted because she would need too much care and he could not provide that for her. She notes that he is in a wheelchair and not able to care for himself and worries that he will not be able to remain at home however they have a dog, small breed, and they are both reluctant to leave their house because they do not know who would take care of their dog. She very much wants to return home and spend what ever time she has remaining in her own home and with her family. She states that she shared this with her daughters but that they told her they wanted to take a day to think about it and sleep on it before making any final decisions. We discussed the option of hospice careI have provided education about the hospice benefit. Hospice is an interdisciplinary program offered by nurses, nurses aides, social workers, chaplains and a registered medical transcriptionist for patients with a terminal condition and a life expectancy of less than 6 months. The goal would be to improve the quality of life of the patient in their home setting (home, assisted, inpatient hospice setting) by providing symptoms management, psychosocial and spiritual support. However, they cannot offer 24 hours care and if the family is unable to provide that care, they will have to consider personal care with out of pocket cost vs. assisted placement. (3) Acute on chronic respiratory failure with hypoxemia: (4) CHF (congestive heart failure): Heart failure chronicity: unspecified Heart failure type: unspecified Qualified Code(s): I50.9 - Heart failure, unspecified (5) Acute renal failure: Acute renal failure type: unspecified Qualified Code(s): N17.9 - Acute kidney failure, unspecified (6) Acute on chronic combined systolic and diastolic heart failure: Plan After I met with patient, she explained that her daughters were aware of her wishes to want a return home with hospice however felt that they needed to take a day to think about everything and sleep on it. Later this afternoon I was notified by patient's nurse that patient and her daughters would like to go home with hospice, today if possible. Daughters feel that they want to respect patient's wishes and have spoken with their father who was in agreement for patient to come home with hospice. Family will be able to provide [id number] care and patient will not be alone. I have notified the primary team and case management. Nursing is also aware. Caprice Alarcon [facility] Clinical Director, Palliative Medicine History of Present Illness Reason for Consultation: Goals of care. Decompensated HF/ischemic ATN Attending Physician: Chapin Levi MD History of Present Illness per admitting note, 82 yo with decompensated heart failure and kidney failure. Two admissions over past two months for similar symptoms. K+ 6.1, worsening creatinine over past few months; now 3.93. Phos 5.8. Open to Palliative Medicine consultation. Will involve Cards and Nephro. Goals of Care -Lengthy conversation held with patient and daughter. Numerous admissions over the past year. 08/03-08/06; 09/12-09/23. Due to the patients overall clinical picture, she would qualify for hospice services. Lengthy goals of care conversation was held with this patient and her daughter, Mdaiha, at bedside. Patient has noted to have significant decline over the past 6 months and patient is noted to have significant functional decline over the past 6 months; has been resistant to inpatient rehabilitation and has made numerous comments indicating her wish to be at home with her family. A few analogies described to patient including a swelling pipe. 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 Patient does state that she has strong lucille but does admit that she feels that her life and decisions have become out of her control as of late. We discussed Palliative Medicine at length and Hospice as well and the difference between the two. The family knows that her body is declining and if she did have limited time (6 months, 1 year, etc) that she would want the rest of that time being spent at home with symptom management. She did describe feeling 'burdensome' to her family. -For now, patient will remain a full code; but all are receptive to further goals of care conversations with palliative medicine with some treatment in the meantime for helping her to feel a little bit better. Discussed that the patient would qualify for Hospice services with the diagnosis of Congestive Heart Failure. 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 This conversation led to the unliklihood of her having a meaningful recovery in that situation. The patient will remain a full code for now, but the daughter said that if there is no improvement over the next 24-48 hours, they will consider DNR/DNI. Admissions: 08/30/22 -present 09/12 - 09/23/22 08/03/22/- 08/06/2207/12 - 07/17/22 Pt is seen bedside, no family present. She tells me her daughter just left for a break/lunch She tells me she just wants to go home, she knows she is dying but her refuses to let her come home "because I need too much care and he can't do it, he's can't walk himself and uses a wheelchair, he's in his 80s too." She tells me she has end stage heart failure and it is not curable. She is aware she is getting worse and there is not much that can be done to fix/cure things; pt is at times confused, will lose her train of thought or go onto tangential topics. Allergies Allergy/AdvReac Type Severity Reaction Status Date / Time empagliflozin Allergy Intermediate BLOOD IN Verified 08/03/22 21:31 [From Jardiance] URINE, BLADDER INFECTION carbamazepine Allergy Mild RASH Verified 08/03/22 21:31 oxaprozin Allergy Mild RASH/HIVES Verified 08/03/22 21:31 valproic acid Allergy Mild HEAD-TOE Verified 08/03/22 21:31 RASH ranolazine [From Ranexa] AdvReac Dizziness Verified 08/04/22 03:12 Home Medications Medication Instructions Recorded Confirmed Type atorvastatin 80 mg tablet 80 mg PO QAM 06/12/19 09/29/22 History clopidogrel 75 mg tablet 75 mg PO QAM 06/12/19 09/29/22 History fluticasone propionate 50 2 spray intranasal DAILY 06/12/19 09/29/22 History mcg/actuation nasal spray,suspension (Flonase Allergy Relief) levothyroxine 25 mcg tablet 25 mcg PO DAILYBB 06/12/19 09/29/22 History nitroglycerin 0.4 mg sublingual 0.4 mg sublingual DIRECTED PRN 06/12/19 09/29/22 History tablet Chest Pain omeprazole 20 mg tablet,delayed 20 mg PO DAILY 06/12/19 09/29/22 History release ropinirole 0.25 mg tablet 0.25 mg PO HS 06/12/19 09/29/22 History metformin 500 mg tablet 500 mg PO BIDM 07/13/20 09/29/22 History netarsudil 0.02 % eye drops 1 drp OPB HS 11/11/20 09/29/22 History (Rhopressa) evolocumab 140 mg/mL subcutaneous 140 mg subcut .Q14 DAYS 02/27/21 09/29/22 History pen injector (Brad Mcfarlane) glipizide 5 mg tablet 10 mg PO DAILYBB 02/27/21 09/29/22 History isosorbide mononitrate 60 mg 120 mg PO QAM 02/27/21 09/29/22 History tablet,extended release 24 hr warfarin 5 mg tablet 5 mg PO DAILY@1600 02/27/21 09/29/22 History diphenhydramine 25 2 tab PO HS 08/29/21 09/29/22 History mg-acetaminophen 500 mg tablet (Tylenol PM Extra Strength) iron,carbonyl 65 mg-vitamin C 125 1 tab PO QAM 07/12/22 09/29/22 History mg tablet,delayed release (Vitron-C) gabapentin 300 mg capsule 600 mg PO HS 08/03/22 09/29/22 History metoprolol succinate 100 mg 100 mg PO HS 08/03/22 09/29/22 History tablet,extended release 24 hr metoprolol succinate 100 mg 150 mg PO QAM 08/03/22 09/29/22 History tablet,extended release 24 hr latanoprost 0.005 % eye drops 1 drp OPB HS 09/12/22 09/29/22 History magnesium 200 mg tablet 200 mg PO AMHS 09/12/22 09/29/22 History multivitamin with minerals 1 tab PO DAILY 09/12/22 09/29/22 History (Multiple Vitamin-Minerals tablet) allopurinol 100 mg tablet 100 mg PO QAM #30 tabs 09/23/22 09/29/22 Rx digoxin 125 mcg (0.125 mg) tablet 0.125 mg PO MoWeFr 30 days #13 tabs 09/23/22 09/29/22 Rx (Digitek) nitroglycerin 0.4 mg/hr 1 patch transdermal QAM #30 ea 09/23/22 09/29/22 Rx transdermal 24 hour patch (Nitro-Dur) torsemide 10 mg tablet 10 mg PO UD #30 tabs 09/23/22 09/29/22 Rx torsemide 20 mg tablet 20 mg PO UD #60 tabs 09/23/22 09/29/22 Rx cranberry 500 mg capsule 500 mg PO UD 09/29/22 09/29/22 History Patient History Medical History (Updated 09/30/22 @ 16:07 by Caprice Alarcon DNP) Acute on chronic heart failure with reduced ejection fraction and diastolic dysfunction Advanced care planning/counseling discussion Afib CAD (coronary artery disease) Cardiac murmur no longer since heart valve surgery 02/2019 Carotid stenosis Cellulitis Cellulitis of foot Chronic anticoagulation Chronic back pain 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 Decompensated heart failure Decompensated heart failure Diabetes mellitus, type 2 GERD (gastroesophageal reflux disease) Glaucoma History of transcatheter aortic valve replacement (TAVR) Hyperlipidemia Hypertension Hypothyroidism Hypoxia, sleep related uses oxygen at hs 2.5 Laryngeal spasm Mitral stenosis On anticoagulant therapy on warfarin On home oxygen therapy 2.5 LITER AT HS Osteoarthritis Palliative care encounter Peripheral neuropathy Restless leg syndrome Tachy-tanner syndrome Weakness Surgical History History of abdominal surgery for bowel obstruction History of aortic valve replacement 02/26/19 @ [facility] [place]--follows with Dr. Arredondo History of appendectomy History of cardiac cath x4 with a total of 4 stents--last--12/2018 @ [facility] [place] x1 DRUG ELUTING STENT History of colonoscopy History of esophagogastroduodenoscopy (EGD) History of heart artery stent a total of 4 stents--last--12/2018 @ [facility] [place] x1 DRUG ELUTING STENT History of hip surgery left 2 screws placed after total hip replacement History of lumbar laminectomy for spinal cord decompression x2 History of right cataract surgery History of tonsillectomy History of tooth extraction all teeth removed History of total hysterectomy with bilateral salpingo-oophorectomy (BSO) History of total left hip replacement History of total left knee replacement (TKR) History of total right knee replacement (TKR) S/P placement of cardiac pacemaker Aug 2021 S/P TAVR (transcatheter aortic valve replacement) Status post glaucoma surgery right eye Status post trigger finger release left hand Family History Mother Diabetes Osteoporosis Heart disease Grandmother (Maternal) Diabetes Father Heart disease Other Asthma No family history of adverse response to anesthesia Social History Smoking Status: Never smoker Tobacco Type: Cigarettes Second Hand Exposure: No; Hx Alcohol Use: No Hx Substance Use: No Preferred Language: Sinhala Communication Ability: Effective Catalogue Compiler Required: No Beliefs That Will Affect Care: None marital status: Current Living Situation: Spouse Current Living Situation Comment: Lives with Other Information That Helps Us Care for You: No Feels Safe at Home: Yes Safety Concerns: Feels Safe At This Time Assistive Devices: Cane, Denture - Upper, Denture - Lower, Glasses, Hearing Aid - Bilateral and Walker Review of Systems Review of Systems: All systems reviewed & are unremarkable except as noted in Subjective Physical Exam Physical Exam: Elderly female, tired appearing, resting in bed. She is alert to self place and time. She loses track of the conversation and will sometimes drop off midsentence. She has some mild respiratory distress with conversational dyspnea noted. Her lungs overall are diminished and there are scattered crackles bilaterally. Heart tones have a normal rhythm with a systolic murmur on the left. + JVD. +1 BLE abdomen soft and nontender. Bowel sounds present. Extremities with generalized weakness. Skin is pale, cool to touch. There is no overt cyanosis. Results & Data ([facility]) Vital Signs (Past 12 Hours) Vital Signs Temp Pulse Pulse Pulse Resp BP Pulse Ox 09/30/22 08:25 82 20 87 L 09/30/22 07:12 09/30/22 08:00 71 09/30/22 07:47 36.3 C L 62 17 107/53 L 62 L 09/30/22 01:57 74 22 93 09/30/22 01:47 36.4 C L 75 20 124/81 94 O2 Del Method O2 Flow Rate 09/30/22 08:25 Room Air 09/30/22 07:12 Nasal Cannula 2 09/30/22 08:00 09/30/22 07:47 Nasal Cannula 2 09/30/22 01:57 Nasal Cannula 2 09/30/22 01:47 Nasal Cannula 2 Laboratory Results Data reviewed Diagnostic Findings Data reviewed PG Care Time/CCT Total # of Minutes Spent Total Time Spent: 63 Total Time Spent with Patient: Total time spent is greater than 50% in coordination of care (as documented) at patient's floor/unit and/or counseling patient: Advanced Care Planning 89197 Advanced Care Planning 30 Min Coding Level of Care Code New Pt INP/OBS CONSULT LVL 5, 80 MIN Patient Type New History Comprehensive Exam Detailed Medical Decision Making Moderate Complexity Diagnoses Palliative care encounter Z51.5 Advanced care planning/counseling discussion Z71.89 Acute on chronic respiratory failure with hypoxemia J96.21 CHF (congestive heart failure) I50.9 Heart failure chronicity: unspecified Heart failure type: unspecified Acute renal failure N17.9 Acute renal failure type: unspecified Acute on chronic combined systolic and diastolic heart failure I50.43 Additional Codes Advanced Care Planning - 46796 Advanced Care Planning 30 Min: 22558 Advanced Care Planning 30 Min ([id number])
[2022-09-30 10:48] LABS: Estimated Average Glucose 183 mg/dl
[2022-09-30] MEDS ORDERED: INSULIN HUMAN REGULAR PER UNIT 10 UNITS in SYRINGE 9.9 ML IV STA (10:59)
[2022-09-30] MEDS ORDERED: FUROSEMIDE 40 MG/4 ML VIAL IV ONE (11:00)
[2022-09-30] MEDS: PATIROMER CALCIUM SORBITEX 8.4 GM PACK PO SCH (12:59)
[2022-09-30 13:22] LABS: INR 4.6 (0.9-1.1); Prothrombin Time 44.8 Seconds (9.0-12.0)
[2022-09-30 13:26] LABS: BUN Creatinine Ratio 17.8 (10-20); Calcium 9.9 mg/dl (8.5-10.1); Creatinine Clr Calc Pharmacy 7.3 ml/min; Est GFR (African American) 7.4 ml/min; Est GFR (Non-African American) 6.4 ml/min; Potassium 5.7 mmol/L (3.5-5.1)
--- NOTE | 2022-09-30 14:17 | Pharmacy Report ---
Pharmacy Glycemic Short Note 2 - Date of Service September 30, 2022 - Glycemic Short BSG Results (Last 24 hours): 09/29/22 09/29/22 09/29/22 15:26 18:18 19:28 Glucose 177 H POC Glucose 209 H 180 H 09/29/22 09/30/22 09/30/22 21:34 01:09 05:52 Glucose 145 H POC Glucose 200 H 185 H 09/30/22 09/30/22 09/30/22 08:22 11:09 12:06 Glucose POC Glucose 210 H 197 H 157 H 09/30/22 12:48 Glucose 89 POC Glucose OUTPATIENT ANTIDIABETIC REGIMEN: * Metformin 500mg PO BID * Glipizide 10mg PO daily * HbA1c: 8.0% (09/30/22) ASSESSMENT: * Ms Montgomery is an 82yo diabetic F admitted with HF exacerbation, MARY, cellulitis. * Pt was hyperglycemic on admission. Oral DM medications held and pt initiated on SQ basal/bolus insulin regimen. * BSGs today have been reasonable. Somewhat difficult to interpret d/t IV insulin/D50W administration for hyperkalemia. Also, pt had already eaten lunch when lunchtime BSG was drawn. RN was instructed to cover lunch-time CHO only and withhold correctional insulin. * Insulin has been initiated very conservatively. Tight glycemic control is likely not necessary/warranted in the setting of advanced age; palliative consult is in place. PLAN FOR INPATIENT GLYCEMIC CONTROL: * Hold outpatient oral diabetes medications * Basal insulin * Lantus 5 units SQ BID * Bolus insulin * NovoLog per scale ACHS or Q6hrs while NPO * Goal Range: Low 120 mg/dL - High 160 mg/dL * Correction Factor: 30 mg/dL/unit * Nutritional / Prandial insulin per carb ratio of 1 unit per 10 grams CHO consumed
[2022-09-30] MEDS ORDERED: DIGOXIN 0.125 MG TAB PO SCH (16:00)
--- NOTE | 2022-09-30 17:41 | Hospitalist Progress Note ---
Date of Service September 30, 2022 Assessment & Plan (1) Decompensated heart failure: (2) Weakness: (3) MARY (acute kidney injury): (4) Acute hyperkalemia: (5) Diabetes mellitus, type 2: (6) Peripheral neuropathy: (7) CAD (coronary artery disease): (8) Troponin level elevated: (9) Hyperlipidemia: (10) Cellulitis of foot: Plan Patient is an 82 yr female with H/O Decompensated heart failure and kidney failure. Two admissions over past two months for similar symptoms. K+ 6.1, worsening creatinine over past few months; now 3.93. Phos 5.8. Acute on chronic combined systolic and diastolic heart failure Deconditioning and generalized weakness due to comorbidities Acute respiratory failure with hypoxia B/L pleural effusion--refused thoracentesis last admission Chronic angina pectoris CAD --CXR:Mild interstitial pulmonary edema which has progressed in the interval. Small to moderate bilateral pleural effusions and bibasilar densities persist. --Last ECHO:Normal LV chamber size with mild concentric LVH, EF 35 to 40%. Large sized septal, apical, lateral and inferior wall motion abnormality. Grade 2 diastolic dysfunction. Bioprosthetic aortic valve. Gradient is normal for the prosthetic aortic valve. Mild intra-abdominal aortic regurgitation. Severe mitral annular calcification. Mild mitral regurgitation. Moderate mitral stenosis. Moderate tricuspid regurgitation. Pulmonary artery hypertension present with PASP of 50 mmHg. Moderate size left pleural effusion. -- Diuretics difficult to administer given worsening renal failure, hyperkalemia --Patient, family not interested in initiating dialysis -- Appreciate cardiology input --Intolerance to Ranexa previously Home diuretics, ERNST, ARB, digoxin held Continue isosorbide, nitroglycerin, Lipitor, Plavix, metoprolol Very poor prognosis Appreciate palliative care input Goal is comfort and plan to be transition to hospice as per wishes of the patient and patient's family Continue supplemental oxygen for comfort Plan to discharge home tomorrow once hospice services arranged MARY on CKD stage III Borderline oliguric MARY likely ischemic ATN Hyperkalemia Secondary to above Not a candidate for dialysis Received calcium gluconate, insulin, Lasix, bicarbonate Appreciate nephrology input Continue Patiromer calcium Cellulitis: Right dorsal surface of foot: Fluid filled blister with erythematous borders Possible UTI Follow cultures Empirically on Rocephin Continue wound care H/O TAVR: Chronic anticoagulation Supratherapeutic INR No acute bleeding issues Hold Coumadin Monitor INR DM II: Peripheral neuropathy: -Hold home meds -A1c 07/13/22 was 8.3 -ACHS FSBS; SSI Monitor BGs Hyperlipidemia: Continue Atorvastatin CODE STATUS: DNI/DNR as per my discussion with patient and patient's family at bedside Plan to transition to hospice upon discharge DVT Px: Supratherapeutic INR Disposition: Plan to transition to hospice upon discharge Admission and Anticipated Discharge Date Admission Date: September 29, 2022 Subjective Patient is seen and examined at bedside States having "shakiness" this morning Intermittently slow to respond but oriented Discussed with patient's family--goal is comfort and plan to be transition to hospice upon discharge Also discussed with nephrology today Denies any chest pain, dyspnea, dizziness, nausea, abdominal pain " I feel ready to " Review of Systems Review of Systems: All systems reviewed & are unremarkable except as noted in Subjective Physical Exam Physical Exam: Physical Exam: Vitals signs as noted above General Appearance: Elderly, ill-appearing, no apparent distress Head: normocephalic, Atraumatic Eyes: normal inspection, EOMI Neck: supple, Trachea midline Respiratory/Chest: Normal breath sounds, Basal crackles, No accessory muscle use Cardiovascular: S1, S2, + murmur Abdomen/GI:Soft, Non tender, Bowel sounds present Extremities/Musculoskeletal:normal inspection, B/L LE 1-2+ edema Neurologic/Psych:AAOX2, grossly no focal neurological deficits Skin: normal color, warm Results & Data Results & Data ([facility]) Vital Signs (Past 12 Hours) Vital Signs Temp Pulse Pulse Resp BP Pulse Ox O2 Del Method 09/30/22 15:50 36.8 C 73 18 107/61 95 Nasal Cannula 09/30/22 11:27 36.9 C 74 17 102/56 L 95 Nasal Cannula 09/30/22 08:25 82 20 87 L Room Air 09/30/22 07:12 Nasal Cannula 09/30/22 08:00 71 09/30/22 07:47 36.3 C L 62 17 107/53 L 92 Nasal Cannula O2 Flow Rate 09/30/22 15:50 1 09/30/22 11:27 1 09/30/22 08:25 09/30/22 07:12 2 09/30/22 08:00 09/30/22 07:47 2 Laboratory Results Short CBC 09/30/22 Range/Units 05:52 WBC 11.01 H (4.8-10.8) K/ul Hgb 9.7 L (12.0-16.0) g/dl Hct 31.1 L (37.0-47.0) % Plt Count 254 (130-400) K/uL BMP 09/29/22 09/30/22 09/30/22 19:28 05:52 12:48 Sodium 133 L 135 L 133 L Potassium 5.9 H 6.2 H* 5.7 H Chloride 91 L 91 L 90 L Carbon Dioxide 34 H 37 H 33 H BUN 97 H 94 H 101 H Creatinine 4.77 H* D 4.90 H* 5.68 H* D Glucose 177 H 145 H 89 Calcium 10.1 9.4 9.9
[2022-09-30] MEDS: cefTRIAXone SODIUM 1,000 MG in DEXTROSE 5% AD-VAN 50 ML IV SCH (20:12)
[2022-09-30] MEDS: rOPINIRole HCL 0.25 MG TABLET PO SCH (20:16)
[2022-09-30] MEDS: LATANOPROST 0.005% OP SOLN 2.5 ML BTL OPB SCH (20:16)
[2022-09-30] MEDS: GABAPENTIN 300 MG CAP PO SCH (20:16)
[2022-09-30] MEDS ORDERED: PHENAZOPYRIDINE HCL 200 MG TAB PO STA (21:37)
[2022-09-30 22:17] LABS: BUN Creatinine Ratio 17.4 (10-20); Calcium 9.4 mg/dl (8.5-10.1); Creatinine Clr Calc Pharmacy 7.3 ml/min; Est GFR (African American) 7.3 ml/min; Est GFR (Non-African American) 6.3 ml/min; Potassium 6.1 mmol/L (3.5-5.1)
[2022-09-30] MEDS ORDERED: DEXTROSE 50% 50 ML SYRINGE IV STA (22:18)
[2022-09-30] MEDS ORDERED: INSULIN HUMAN REGULAR PER UNIT 10 UNITS in SYRINGE 9.9 ML IV ONE (22:30)
[2022-10-01] MEDS: LEVALBUTEROL HCL 1.25 MG/3 ML NEB NEB PRN (00:23)
[2022-10-01] MEDS: RHOPRESSA~ORDER AWAITING ACTION SCH ×2 (00:27→08:03)
[2022-10-01] MEDS: LEVOTHYROXINE SODIUM 25 MCG TABLET PO SCH (05:54)
[2022-10-01 06:39] LABS: Basophils # (auto) 0.02 K/uL (0-0.2); Basophils % (auto) 0.3 %; Eosinophils # (auto) 0.06 K/uL (0-0.50); Hematocrit (blood only) 28.8 % (37.0-47.0); Hemoglobin 9.2 g/dl (12.0-16.0); Immature Granulocytes # (auto) 0.03 K/uL (0.01-0.20); Immature Granulocytes % (auto) 0.5 %; Lymphocytes % (auto) 15.7 %; Mean Corpuscular Hemoglobin 29.9 pg (25.0-34.0); Mean Corpuscular Hgb Conc 31.9 g/dL (32.0-36.0); Mean Corpuscular Volume 93.5 fL (80.0-100.0); Mean Platelet Volume 10.3 fL (9.4-12.4); Monocytes # (auto) 0.43 K/uL (0.11-0.59); Monocytes % (auto) 7.5 %; Neutrophils # (auto) 4.31 K/uL (1.40-6.50); Platelet Count 219 K/uL (130-400); RDW Standard Deviation 50.7 fL (36.4-46.3); Red Blood Count 3.08 M/uL (4.20-5.40); White Blood Count 5.75 K/ul (4.8-10.8)
[2022-10-01 06:55] LABS: Calcium 9.8 mg/dl (8.5-10.1); Magnesium 2.4 mg/dl (1.7-2.4); Potassium 5.3 mmol/L (3.5-5.1)
[2022-10-01 07:10] LABS: BUN Creatinine Ratio 17.8 (10-20); Creatinine Clr Calc Pharmacy 6.7 ml/min; Est GFR (African American) 6.6 ml/min; Est GFR (Non-African American) 5.7 ml/min; Phosphorus 6.1 mg/dl (2.5-4.9)
[2022-10-01 07:56] LABS: INR 4.1 (0.9-1.1); Prothrombin Time 40.7 Seconds (9.0-12.0)
[2022-10-01] MEDS: INSULIN ASPART PER UNIT SC SCH ×2 (08:03→10:56)
[2022-10-01] MEDS: MAGNESIUM OXIDE 400 MG TAB PO SCH (08:22)
[2022-10-01] MEDS: PANTOprazole 40 MG TAB PO SCH (08:22)
[2022-10-01] MEDS: ISOSORBIDE MONO EXTENDED REL 60 MG TABCR PO SCH (08:22)
[2022-10-01] MEDS: ATORVASTATIN 40 MG TAB PO SCH (08:22)
[2022-10-01] MEDS: CLOPIDOGREL BISULFATE 75 MG TAB PO SCH (08:22)
[2022-10-01] MEDS: allopurinoL 100 MG TAB PO SCH (08:22)
[2022-10-01] MEDS: METOPROLOL SUCC 50MG EXT REL TAB PO SCH (08:23)
[2022-10-01] MEDS: NITROGLYCERIN 0.4 MG/HR PATCH TD SCH (08:23)
[2022-10-01] MEDS: FLUTICASONE PROPIONATE NA SPR 16 GM BTL SCH (08:23)
[2022-10-01] MEDS: PATIROMER CALCIUM SORBITEX 8.4 GM PACK PO SCH (10:56)
--- NOTE | 2022-10-01 12:15 | Pulmonology Progress Note ---
Date of Service October 01, 2022 Assessment & Plan (1) Decompensated heart failure: (2) Pleural effusion: (3) Acute on chronic respiratory failure with hypoxemia: Plan Chest x-ray 09/29/2021 personally reviewed: Portable film, blunting of bilateral costophrenic angles, increased cardiac silhouette, dual-chamber pacemaker in place On comparing to the chest x-ray done 09/19/2022 there is mild improvement in bilateral pleural effusion --Acute on chronic hypoxic respiratory failure Likely secondary to decompensated CHF on top of CKD With O2 supplementation to keep oxygen saturation between 90-92% given the pulmonary hypertension -- Bilateral pleural effusion Small with dependent atelectasis Continue with diuretics Plan: In/out: +310 mL Patient is planned to be discharged home on hospice. I think this is the right decision to do. Patient was little down when it comes to her mood today. Encouragement was deon real that she will be with family around all the time which is the best 1 could hope for RN was also at bedside Please note the above document was generated using voice recognition software. It may contain grammatical, syntax or spelling errors.Any formal questions or concerns about the content, text or information contained within the body of this dictation should be directly addressed to the provider for clarification. Admission and Anticipated Discharge Date Admission Date: September 29, 2022 Subjective Patient seen and examined at bedside. No acute distress, no adverse events overnight Denies any headache, no nausea, no vomiting Still complains of not easy to take deep breaths. Denies any chest pain No headache, no nausea, no vomiting Has been afebrile Review of Systems Review of Systems: All systems reviewed & are unremarkable except as noted in Subjective Physical Exam Physical Exam: Constitutional: No acute distress HEENT: EOMI, PERRLA Respiratory system: Decreased air entry bilaterally, no wheeze, no rhonchi, positive crackles bilateral lower lobes CVS: S1-S2 positive, positive 2 out of 6 systolic murmur appreciated best at aorta Abdomen: Soft, nontender, nondistended, positive bowel sounds x4 Extremities: +2 pulses bilaterally radialis/ dorsalis pedis, no cyanosis, +2 pitting edema bilateral lower extremity Neuro: Awake alert oriented to self and place Psych: Flat mood and affect G/U: Positive Joyner Results & Data Results & Data ([facility]) Vital Signs (Past 12 Hours) Vital Signs Temp Pulse Pulse Resp BP Pulse Ox O2 Del Method 10/01/22 11:34 36.7 C 70 20 94/64 L 97 Nasal Cannula 10/01/22 08:00 Nasal Cannula 10/01/22 08:02 60 10/01/22 07:18 36.6 C 70 18 106/71 98 Nasal Cannula 10/01/22 03:32 36.2 C L 65 17 95/55 L 98 Nasal Cannula 10/01/22 00:27 71 20 96 Nasal Cannula O2 Flow Rate 10/01/22 11:34 2 10/01/22 08:00 2 10/01/22 08:02 10/01/22 07:18 2 10/01/22 03:32 2 10/01/22 00:27 2 Laboratory Results 10/01/22 05:41 10/01/22 05:41 PG Care Time/CCT Total # of Minutes Spent Total Time Spent with Patient: Total time spent is greater than 50% in coordination of care (as documented) at patient's floor/unit and/or counseling patient: Coding Level of Care Code 70076 SUB INP/OBS CARE 2/35MIN Diagnoses Decompensated heart failure I50.9 Pleural effusion J90 Acute on chronic respiratory failure with hypoxemia J96.21
--- NOTE | 2022-10-01 12:20 | Discharge Summary ---
Date of Service October 01, 2022 Admission HPI Per Admitting Provider Ms. Montgomery is an 82 year old female that presented to the [facility] with SOB and progressive weakness. She has multiple recurrent hospitalizations 08/03 to 08/06; 09/12 to 09/23 for decompensated heart failure. She has a very complex cardiac history including CAD with class III-IV angina, paroxysmal A-fib, TAVR (2019 -on chronic anticoagulation ), pacer insertion in 06/2022 status post tachybradycardia syndrome, carotid stenosis status post bilateral carotid endarterectomies 2012, mitral stenosis, pulmonary hypertension, diabetes mellitus type 2 with peripheral neuropathy, carotid st enosis, PVD, hypertension, hypothyroidism, HLD, GERD, glaucoma and depression. It is suspect that this patient is experiencing acute decompensation of chronic HFrEF with hypoxia. Patient with previous MARY however baseline creatinine continues to worsen today 3.93. Appears to be ischemic ATN due to diuretic use for heart failure. Troponin noted to be elevated, likely due to demand ischemia from known CAD with class IV angina, worsened by hypoxia and current MARY. Due to the patients overall clinical picture, she would qualify for hospice services. Lengthy goals of care conversation was held with this patient and her daughter, Madiha, at bedside. Patient has noted to have significant decline over the past 6 months and patient is noted to have significant functional decline over the past 6 months; has been resistant to inpatient rehabilitation and has made numerous comments indicating her wish to be at home with her family. A few analogies described to patient including a swelling pipe. We talked about medication changes, recurrent hospitalizations and our ability to care for these chronic illness chcf. Patient does state that she has strong lucille but does admit that she feels that her life and decisions have become out of her control as of late. We discussed Palliative Medicine at length and Hospice as well and the difference between the two. The family knows that her body is declining and if she did have limited time (6 months, 1 year, etc) that she would want the rest of that time being spent at home with symptom management. She did describe feeling 'burdensome' to her family. For now, patient will remain a full code; but all are receptive to further goals of care conversations with palliative medicine with some treatment in the meantime for helping her to feel a little bit better. Discussed that the patient would qualify for Hospice services with the diagnosis of Congestive Heart Failure. 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 This conversation led to the unliklihood of her having a meaningful recovery in that situation. The patient will remain a full code for now, but the daughter said that if there is no improvement over the next 24-48 hours, they will consider DNR/DNI. Patient is AAOx3 and able to hold a meaningful conversation; however, does get confused with medical details. Patient denies chest pain, palpitations, N/V/D, visual or auditory changes. She does report decreased urine output and less PO intake over the past few days. She has been drinking ensure the past few days. Her daughter reports she is unsure if she has been compliant with taking all of her medications. On exam, patient is FOND [place] LAC, pale, using accessory muscle for breathing (which is new per daughter), crackles anteriorly, decreased posteriorly. she has a fluid- filled blister on her right dorsal foot with erythematous borders. Patient will be admitted for further evaluation and management with input from Nephrology, Cardiology and Palliative Medicine. Admission Exam Per Admitting Provider Neuro: AAOx4, PERRLA, no aphagia, memory changes, CNII-XII grossly intact HEENT: head normocephalic, moist mucus membranes CV: S1/S2, (+) III/ murmur LSB. (-) G/R, (-) edema, cap refill < 3 seconds Resp: Lungs crackles anteriorly; decreased posterior. On 4LNC GI: Abdomen S/NT/ND, Ax4 bowel sounds, (-) CVA tenderness Musculoskeletal: 5/5 B/L UE strength, 5/5 B/L LE strength. No gait disturbance Skin: (-) rashes , (-) erythema. (+) fluid filled blister, quarter-sized. Numerous scabs on her right leg. Psych: euthymic mood Principal Diagnosis Decompensated heart failure Weakness MARY Acute hyperkalemia Peripheral neuropathy Cellulitis of foot Discharge Exam GENERAL: sleepy. NAD, on 2L NC O2. chronically ill/weak appearing HEENT: No pallor, no icterus. Pupils equal, round and reactive to light. Oral mucosa moist. NECK: No JVD, no neck masses. HEART: S1 and S2 heard. Regular rate and rhythm. + murmur, no gallop. RESPIRATORY SYSTEM: Normal AP diameter. No accessory muscle use. No wheezing, basal crackles. ABDOMEN: Soft, bowel sounds present, nontender, no distention. CENTRAL NERVOUS SYSTEM: No facial droop. Speech is clear. Obeys simple commands. Moves extremities. EXTREMITIES: 1-2+ ble edema, no erythema seen. Discharge Data Allergies Allergy/AdvReac Type Severity Reaction Status Date / Time empagliflozin Allergy Intermediate BLOOD IN Verified 08/03/22 21:31 [From Jardiance] URINE, BLADDER INFECTION carbamazepine Allergy Mild RASH Verified 08/03/22 21:31 oxaprozin Allergy Mild RASH/HIVES Verified 08/03/22 21:31 valproic acid Allergy Mild HEAD-TOE Verified 08/03/22 21:31 RASH ranolazine [From Ranexa] AdvReac Dizziness Verified 08/04/22 03:12 Consultations 09/29/22 12:52 ED Decision to Admit Stat 09/29/22 12:53 Consult Cardiology Routine Consult Nephrology Routine 09/30/22 08:00 Consult Palliative Care Routine Consult Pulmonology Routine Ordered Studies 09/30/22 08:11 US point of care ultrasound Urgent Hospital Course (1) Decompensated heart failure: (2) Weakness: (3) MARY (acute kidney injury): (4) Acute hyperkalemia: (5) Diabetes mellitus, type 2: (6) Peripheral neuropathy: (7) CAD (coronary artery disease): (8) Troponin level elevated: (9) Hyperlipidemia: (10) Cellulitis of foot: Plan Patient is an 82 yr female with H/O Decompensated heart failure and kidney failure. Two admissions over past two months for similar symptoms. K+ 6.1, worsening creatinine over past few months; now 3.93. Phos 5.8. She was managed for the following: Acute on chronic combined systolic and diastolic heart failure Deconditioning and generalized weakness due to comorbidities Acute respiratory failure with hypoxia B/L pleural effusion--refused thoracentesis last admission Chronic angina pectoris CAD --CXR:Mild interstitial pulmonary edema which has progressed in the interval. Small to moderate bilateral pleural effusions and bibasilar densities persist. --Last ECHO:Normal LV chamber size with mild concentric LVH, EF 35 to 40%. Large sized septal, apical, lateral and inferior wall motion abnormality. Grade 2 diastolic dysfunction. Bioprosthetic aortic valve. Gradient is normal for the prosthetic aortic valve. Mild intra-abdominal aortic regurgitation. Severe mitral annular calcification. Mild mitral regurgitation. Moderate mitral stenosis. Moderate tricuspid regurgitation. Pulmonary artery hypertension present with PASP of 50 mmHg. Moderate size left pleural effusion. -- Diuretics difficult to administer given worsening renal failure, hyperkalemia --Patient, family not interested in initiating dialysis -- Appreciate cardiology input --Intolerance to Ranexa previously Home diuretics, ERNST, ARB, digoxin held Continue isosorbide, nitroglycerin, Lipitor, Plavix, metoprolol Very poor prognosis Appreciate palliative care input Goal is comfort and plan to be transition to hospice as per wishes of the patient and patient's family Continue supplemental oxygen for comfort Plan to discharge home today w/ hospice. MARY on CKD stage III Borderline oliguric MARY likely ischemic ATN Hyperkalemia Secondary to above Not a candidate for dialysis Received calcium gluconate, insulin, Lasix, bicarbonate Appreciate nephrology input Continue Patiromer calcium until hospice takes over care/further Mx per hospice team. Cellulitis: Right dorsal surface of foot: Fluid filled blister with erythematous borders Possible UTI Follow cultures Empirically on Rocephin, on po atb on dc Continue wound care , improving H/O TAVR: Chronic anticoagulation Supratherapeutic INR No acute bleeding issues Hold Coumadin Monitor INR DM II: Peripheral neuropathy: -Hold home meds -A1c 07/13/22 was 8.3 -ACHS FSBS; SSI Monitor BGs Hyperlipidemia: Continue Atorvastatin CODE STATUS: DNI/DNR as per my discussion with patient and patient's family at bedside Plan to transition to hospice upon discharge DVT Px: Supratherapeutic INR Disposition: Pt being discharged to home w/ hospice. Home Health Attestation I certify that this patient is under my care and that I, or a physicians laboratory chemical assistant working with me, had a face to-face encounter that meets the home health [id number] encounter requirements with this patient. The encounter with the patient was in whole, or in part, for the following medical condition, which is the primary reason for home health care (list medical condition): I certify that, based on my findings, the following services are medically necessary home health services: My clinical findings support the need for the above services because: Further, I certify that my clinical findings support that this patient is homebound (i.e. absences from home require considerable and taxing effort and are for medical reasons or baptism services or infrequently or of short duration when for other reasons) because: Certification for Home Health Services: Based on the above findings, I certify that this patient is confined to the home and needs intermittent usp care, physical therapy and/or speech therapy or continues to need occupational therapy. The patient is under my care, and I have initiated the establishment of the plan of care. This patient will be followed by a physician who will periodically review the plan of care. Total Time Total Time Spent Total Time Spent (In Minutes): 45 Discharge Plan Discharge Items Patient Disposition: Hospice - Home Reason For Visit: WEAKNESS Discharge Diagnosis: Decompensated heart failure Weakness MARY Acute hyperkalemia Peripheral neuropathy Cellulitis of foot Activity: Resume your previous activity Non-emergency contact: Primary Care Provider Call non-emergency contact if: you have any medication questions Follow-up/Referrals: Natalio Moseley MD [Primary Care Provider] - Diet: Regular Addtl Attending Provider Instructions: You are being discharged home with hospice, your care will be overseen by hospice once you are discharged. Until hospice takes over your care, continue medications as prescribed. Pending Studies at Discharge: Yes (2/2 final culture results. ) Stand-Alone Forms: My [facility] Medications and DC Order Prescriptions: New Velt[place] 8.4 gram Powder In Packet 16.8 g PO DAILY@1100 4 Days Qty: 4 0RF cefdinir 300 mg capsule 300 mg PO DAILY 5 Days Qty: 5 0RF Continued atorvastatin 80 mg Tablet 80 mg PO QAM clopidogrel 75 mg Tablet 75 mg PO QAM levothyroxine 25 mcg Tablet 25 mcg PO DAILYBB ropinirole 0.25 mg Tablet 0.25 mg PO HS Rx Instructions: TAKE AT HS WITH FOOD. nitroglycerin 0.4 mg Tablet, Sublingual 0.4 mg sublingual DIRECTED PRN (Reason: Chest Pain) Rx Instructions: dissolve 1 tablet under tongue every 5 minutes as needed for chest pain as directed fluticasone propionate [Flonase Allergy Relief] 50 mcg/actuation Banks,Suspension 2 spray INTRANASAL DAILY Rx Instructions: takes up to TID PRN omeprazole 20 mg Tablet,Delayed Release (Dr/Ec) 20 mg PO DAILY metformin 500 mg Tablet 500 mg PO BIDM Rhopressa 0.02 % Drops 1 drp OPB HS isosorbide mononitrate 60 mg Tablet Extended Release 24 Hr 120 mg PO QAM warfarin 5 mg tablet 5 mg PO DAILY@1600 Rx Instructions: as recommended by coagulation clinic pharmacist glipizide 5 mg tablet 10 mg PO DAILYBB Rx Instructions: takes 10mg daily usually but while on prednisone takes 10mg bid Repatha SureClick 140 mg/mL pen injector 140 mg SUBCUT .Q14 DAYS diphenhydramine-acetaminophen [Tylenol PM Extra Strength] 25-500 mg Tablet 2 tab PO HS Vitron-C 65 mg iron- 125 mg Tablet,Delayed Release (Dr/Ec) 1 tab PO QAM metoprolol succinate 100 mg tablet extended release 24 hr 100 mg PO HS metoprolol succinate 100 mg tablet extended release 24 hr 150 mg PO QAM gabapentin 300 mg capsule 600 mg PO HS magnesium 200 mg tablet 200 mg PO AMHS Multiple Vitamin-Minerals Tablet 1 tab PO DAILY latanoprost 0.005 % drops 1 drp OPB HS nitroglycerin [Nitro-Dur] 0.4 mg/hr Patch 24 Hour 1 patch transdermal QAM Qty: 30 1RF digoxin [Digitek] 125 mcg (0.125 mg) Tablet 0.125 mg PO MoWeFr 30 Days Qty: 13 1RF allopurinol 100 mg Tablet 100 mg PO QAM Qty: 30 1RF torsemide 10 mg tablet 10 mg PO UD Qty: 30 2RF Rx Instructions: Take Torsemide 30mg 9AM and and 20mg 5PM torsemide 20 mg tablet 20 mg PO UD Qty: 60 1RF Rx Instructions: Take Torsemide 30mg 9AM and and 20mg 5PM cranberry 500 mg Capsule 500 mg PO UD Rx Instructions: administer with meals Discharge Orders: Discharge Order (Routine); Ordered 10/01/22 Ordered By: Lisa Ballard Discharge Order- CHF (Routine); Ordered 10/01/22 Ordered By: Lisa Ballard Admission Data Admit Date/Time: 09/29/22 12:53 Attending Provider: Lisa Ballard Admit Provider: Ricarda Kothari Primary Care Provider: Natalio Moseley Other Providers: Ricarda Kothari ; Jay Carter ; Skylar Hernandez. ; Enriqueta Chen
== END 2022-10-01 13:33 | disposition hospice, home (50) | DRG 291 ==
LOC: ED 10:40 → SUATTDRO 12:53 → EDINP 12:53 → 2S 16:28